=== PATIENT | female | born 1965 | race African-American/Black ===

== ENCOUNTER 2016-05-10 10:54 | Inpatient (IN) | payer MEDICAID ==
[2016-05-10] VITALS (10 sets, daily range): BP systolic 117–165; BP diastolic 63–78; PULSE 75–104; RESP 16–28; TEMP 99.3; O2SAT 80–100
[~2016-05-10] VITALS: Ht 172.7 cm; Wt 112.1 kg
[~2016-05-10 10:54] MED LIST: ALBU.5I NEB; ASPI81CH CHEW; BUME1TAB PO; FERR325T PO; GABA800T PO; LEVEMIR SQ; METO5TAB3 PO; MONT10TA2 PO; MULT1TAB84 PO; NOVOLOGP2 SQ; PRED10 PO; PROT40TA PO; ULTR50TA5 PO; VENTAER INH
[2016-05-10] MEDS ORDERED: RESP: ALBUTEROL 2.5 MG/IPRATROPIUM 0.5 MG NEB (SCH) INH ONE (11:15)
[2016-05-10] MEDS ORDERED: SODIUM CHLORIDE 0.9% FLUSH 5 ML FLUSH IVF PRN ×2 (11:15→14:15)
[2016-05-10] MEDS ORDERED: methylPREDNISolone SOD SUCC 125 MG/2 ML VIAL IVP ONE (11:15)
[2016-05-10 11:34] LABS: AUTOMATED NEUTROPHIL # 10.3 TH/MM3 (1.8-7.7); BASOPHIL # 0.1 TH/MM3 (0-0.2); EOSINOPHIL # 0.1 TH/MM3 (0-0.4); EOSINOPHIL % 0.7 % (0.0-4.0); HEMATOCRIT 34.3 % (35.0-46.0); HEMO FLAGS DIFF FINAL; LYMPH % 6.9 % (9.0-44.0); LYMPHOCYTE # 0.8 TH/MM3 (1.0-4.8); MEAN CORPUSCULAR HGB CONC 32.1 % (32.0-36.0); MONO % 6.1 % (0.0-8.0); NEUT % 85.3 % (16.0-70.0); PLATELET COUNT 269 TH/MM3 (150-450); RED BLOOD COUNT 3.95 MIL/MM3 (4.00-5.30); RED CELL DISTRIBUTION WIDTH 17.6 % (11.6-17.2)
[2016-05-10] MEDS: RESP: ALBUTEROL 2.5 MG/3 ML NEB (SCH) INH (11:34)
--- NOTE | 2016-05-10 11:35 | PD ---
HPI Chief Complaint: Respiratory Distress Time Seen by Provider: 11:01 Travel History International Travel<30 days: No Contact w/Intl Traveler<30days: No Traveled to known affect area: No History of Present Illness HPI This is a 50-year-old female history of COPD, hyperlipidemia, diabetes mellitus , anemia, who presents today with complaints of progressive shortness of breath times several days. She denies any fevers, chills. She states she is normally on 2.5 L of oxygen and has had increased to 4. She states she's been using her nebulizer without relief. She also reports pain in her right buttocks running down her leg. She states she fell 2 weeks ago on her right side and has had pain since. She is able to ambulate however reports the pain. She denies any productive cough. He is unable to tell me how her blood sugars been. PFSH Past Medical History Hx Anticoagulant Therapy: Yes (ASPIRIN ) Anemia: Yes Arthritis: Yes (Legs) Asthma: Yes Autoimmune Disease: No Anxiety: Yes Depression: No Heart Rhythm Problems: No Cancer: No Cardiovascular Problems: Yes High Cholesterol: No Chemotherapy: No Chest Pain: No Congestive Heart Failure: No COPD: Yes Cerebrovascular Accident: No Coronary Artery Disease: No Diabetes: Yes Diminished Hearing: No Endocrine: Yes ( ) Gastrointestinal Disorders: Yes GERD: Yes Glaucoma: No Genitourinary: No Headaches: Yes Hepatitis: No Hiatal Hernia: No Hypertension: Yes Immune Disorder: Yes (Lupus) Implanted Vascular Access Dvce: Yes Kidney Stones: No Musculoskeletal: Yes Neurologic: No Psychiatric: Yes Reproductive: No Respiratory: Yes (COPD) Immunizations Current: No Migraines: Yes ( ) Radiation Therapy: No Renal Failure: No Seizures: No Sickle Cell Disease: No Sleep Apnea: Yes Thyroid Disease: No Ulcer: No ?: Not Menopausal: Yes : 3 Para: 1 Miscarriage: 2 Past Surgical History Abdominal Surgery: No AICD: No Arteriovenous Shunt: No Body Medical Devices: right ankle screws and plates Cardiac Surgery: No Ear Surgery: No Endocrine Surgery: No Eye Surgery: No Genitourinary Surgery: Yes (KIDNEY BIOPSY ) Gynecologic Surgery: Yes (ABLATION) Hysterectomy: Yes Insulin Pump: No Joint Replacement: No Neurologic Surgery: No Oral Surgery: No Pacemaker: No Thoracic Surgery: No Other Surgery: Yes (Ankle Surgery) Social History Alcohol Use: No Tobacco Use: No (quit 10 years, smoked 1 ppd) Substance Use: No Allergies-Medications (Allergen,Severity, Reaction): Coded Allergies: *MDRO Multi-Drug Resistant Organism (Verified Adverse Reaction, Unknown, ) 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 Pt does not require isolation for hx of MDRO prior to 05/11/15* Reported Meds & Prescriptions Reported Meds & Active Scripts Active Prednisone 10 Mg Tab 10 Mg PO DAILY Bumetanide 1 Mg Tab 1 Mg PO DAILY Reported Ultram (Tramadol HCl) 50 Mg Tab 50 Mg PO BID PRN Metolazone 5 Mg Tab 5 Mg PO EVERY OTHER DAY Aspirin 81 Mg Chew 81 Mg CHEW DAILY Ferrous Sulfate 325 Mg Tab 325 Mg PO BID Ventolin Hfa 18 GM Inh (Albuterol Sulfate) 90 Mcg/Act Aer 2 Puff INH Q4H PRN Singulair (Montelukast Sodium) 10 Mg Tab 10 Mg PO HS Albuterol Neb (Albuterol Sulfate) 2.5 Mg/0.5 Ml Neb 2.5 Mg NEB Q4HR NEB PRN Note: The Albuterol Sulfate Inhalation Solution is concentrated and must be diluted. Read complete instructions carefully before using. Protonix (Pantoprazole Sodium) 40 Mg Tab 40 Mg PO DAILY Novolog Inj (Insulin Aspart) 1,000 Unit/10 Ml Vial 20 Units SQ TIDAC Novolog Inj (Insulin Aspart) 1,000 Unit/10 Ml Vial 0 SQ DIRECTED Sliding Scale as directed. Multivitamin Adults (Multiple Vitamins W/ Minerals) 1 Tab 1 Tab PO DAILY Levemir Inj (Insulin Detemir) 1,000 unit/ 10 ML Vial 40 Units SQ BID Do not mix with any other Insulin. Gabapentin 800 Mg Tab 800 Mg PO TID Review of Systems Except as stated in HPI: all other systems reviewed are Neg General / Constitutional: No: Fever, Chills HENT: No: Headaches, Lightheadedness Cardiovascular: No: Chest Pain or Discomfort, Palpitations Respiratory: Positive: Shortness of Breath, Wheezing, No: Cough Gastrointestinal: No: Nausea, Vomiting, Abdominal Pain Musculoskeletal: Positive: Pain (right buttocks running down her right leg) Neurologic: No: Weakness, Dizziness Physical Exam Narrative GENERAL: Well-nourished, well-developed patient in moderate respiratory distress. SKIN: Warm and dry. HEAD: Normocephalic/atraumatic. EYES: No scleral icterus. No drainage NECK: Supple, trachea midline. Unable to appreciate JVD secondary to patient's habitus. CARDIOVASCULAR: Regular rate and rhythm without murmurs, gallops, or rubs. RESPIRATORY: Bilateral axillary wheezes. No Rales appreciated. GASTROINTESTINAL: Abdomen soft, obese, non-tender, nondistended. MUSCULOSKELETAL: No calf tenderness. The patient does have pain in her right sacroiliac area that she reports extends down to her left knee. There is no palpable cords in her posterior popliteal fossa. BACK: Pain in her right sacroiliac area. No posterior is spinous process tenderness. NEUROLOGICAL: Awake and alert. Cranial nerves II through XII intact. Motor grossly within normal limits. Five out of 5 muscle strength in all muscle groups. Normal speech. Data Data Last Documented VS Vital Signs Date Time Temp Pulse Resp B/P Pulse Ox O2 Delivery O2 Flow Rate FiO2 05/10/16 13:31 99 Non-Rebreather 10 05/10/16 13:30 99 28 132/63 05/10/16 11:04 99.3 Orders Complete Blood Count With Diff (05/10/16 11:12) Basic Metabolic Panel (Bmp) (05/10/16 11:12) Arterial Blood Gas (Abg) (05/10/16 11:12) Iv Access Insert/Monitor (05/10/16 11:12) Ecg Monitoring (05/10/16 11:12) Oximetry (05/10/16 11:12) Oxygen Administration (05/10/16 11:12) Chest, Single Ap (05/10/16 11:12) Sodium Chloride 0.9% Flush (Ns Flush) (05/10/16 11:15) Methylprednisolone So Succ Inj (Solumedr (05/10/16 11:15) Albuterol-Ipratropium Neb (Duoneb Neb) (05/10/16 11:15) Albuterol Neb (Albuterol Neb) (05/10/16 11:15) Ceftriaxone Inj (Rocephin Inj) (05/10/16 13:30) Azithromycin Inj (Zithromax Inj) (05/10/16 13:30) Lactic Acid (05/10/16 13:28) Labs Laboratory Tests Test 05/10/16 05/10/16 11:10 12:10 White Blood Count 12.0 TH/MM3 Red Blood Count 3.95 MIL/MM3 Hemoglobin 11.0 GM/DL Hematocrit 34.3 % Mean Corpuscular Volume 87.0 FL Mean Corpuscular Hemoglobin 28.0 PG Mean Corpuscular Hemoglobin 32.1 % Concent Red Cell Distribution Width 17.6 % Platelet Count 269 TH/MM3 Mean Platelet Volume 7.6 FL Neutrophils (%) (Auto) 85.3 % Lymphocytes (%) (Auto) 6.9 % Monocytes (%) (Auto) 6.1 % Eosinophils (%) (Auto) 0.7 % Basophils (%) (Auto) 1.0 % Neutrophils # (Auto) 10.3 TH/MM3 Lymphocytes # (Auto) 0.8 TH/MM3 Monocytes # (Auto) 0.7 TH/MM3 Eosinophils # (Auto) 0.1 TH/MM3 Basophils # (Auto) 0.1 TH/MM3 CBC Comment DIFF FINAL Differential Comment Sodium Level 138 MEQ/L Potassium Level 3.7 MEQ/L Chloride Level 101 MEQ/L Carbon Dioxide Level 25.4 MEQ/L Anion Gap 12 MEQ/L Blood Urea Nitrogen 41 MG/DL Creatinine 2.06 MG/DL Estimat Glomerular Filtration 31 ML/MIN Rate Random Glucose 291 MG/DL Calcium Level 7.7 MG/DL Blood Gas Puncture Site LT RADIAL Blood Gas Patient Temperature 98.6 Blood Gas HCO3 24 mmol/L Blood Gas Base Excess 1.5 mmol/L Blood Gas Oxygen Saturation 76 % Arterial Blood pH 7.51 Arterial Blood Partial 31 mmHg Pressure CO2 Arterial Blood Partial 42 mmHG Pressure O2 Arterial Blood Oxygen Content 11.5 Vol % Arterial Blood 2.7 % Carboxyhemoglobin Arterial Blood Methemoglobin 2.4 % Blood Gas Hemoglobin 10.8 G/DL Oxygen Delivery Device NASAL CANNULA Blood Gas Liter Flow 2.5 L/M [facility] Medical Decision Making Medical Screen Exam Complete: Yes Emergency Medical Condition: Yes Medical Record Reviewed: Yes Interpretation(s) Last Impressions Chest X-Ray 05/10/16 1112 Signed Impressions: Service Date/Time: , May 10, 2016 11:16 - CONCLUSION: Patchy opacity at both lung bases. This may represent atelectasis or early infiltrate. Hugo Frank MD Differential Diagnosis COPD exacerbation versus pneumonia versus CHF. Narrative Course 50-year-old female history of COPD, diabetes mellitus, hyperlipidemia, obesity, who presents today with complaint of worsening shortness of breath. The patient has a history of COPD and states that she has been using her nebulizer however she has had progressively worsening shortness breath. She denies any fevers, chills. She does report that she is having difficulty walking secondary to severe shortness of breath. She also reports pain in her right lower extremity from a fall 1 week ago. The patient has leukocytosis with 85% segs. Chest x-ray shows possible bilateral lower lung atelectasis versus early pneumonia. Given her labs and her increased shortness of breath, I'm suspicious for a early pneumonia. She's been started on Rocephin and Zithromax. A lactic acid level is also ordered. I discussed case with Dr. Clark, senior resident with the resident service. She is agreeable to place the patient on their service. Diagnosis Primary Impression: COPD exacerbation Additional Impressions: Pneumonia Hypoxemia CKD (chronic kidney disease) stage 3, GFR 30-59 ml/min Abdoul Mendoza MD May 10, 2016 11:34
--- NOTE | 2016-05-10 11:42 | RADRPT ---
EXAM DATE/TIME: 05/10/2016 11:16 [facility] COMPARISON: CHEST SINGLE AP, October 12, 2015, 14:46. CHEST SINGLE AP, November 09, 2015, 12:17. CHEST SINGLE AP, Se ptember 2015, 13:17. INDICATIONS : COPD. Shortness of Breath MEDICAL HISTORY : None. SURGICAL HISTORY : None. ENCOUNTER: Initial ACUITY: 3 days PAIN SCORE: 0/10 LOCATION: Bilateral chest FINDINGS: A single AP erect view of the chest was obtained and demonstrates mild patchy bibasilar opacities. Th ere is no evidence of effusion. The heart size at the upper limits of normal. The bony thorax is inta ct. There are multiple overlying electrocardiogram leads. CONCLUSION: Patchy opacity at both lung bases. This may represent atelectasis or early infiltrate . Hugo Frank MD on May 10, 2016 at 11:40 Board Certified Radiologist. This report was verified electronically.
[2016-05-10 11:55] LABS: BICARBONATE 25.4 MEQ/L (21.0-32.0)
[2016-05-10 12:00] LABS: POTASSIUM 3.7 MEQ/L (3.5-5.1)
[2016-05-10 12:20] LABS: BLOOD GAS BASE EXCESS 1.5 mmol/L (-2-2); BLOOD GAS CARBOXYHEMOGLOBIN 2.7 % (0-4); BLOOD GAS HCO3 24 mmol/L (22-26); BLOOD GAS METHEMOGLOBIN 2.4 % (0-2); BLOOD GAS O2 HGB SATURATION 76 % (90-100); BLOOD GAS OXYGEN CONTENT 11.5 Vol % (12.0-20.0); BLOOD GAS PCO2 31 mmHg (38-42); BLOOD GAS PO2 42 mmHG (61-120); BLOOD GAS TOTAL HGB 10.8 G/DL (12.0-16.0); CRITICAL VALUE YES; TEMP CORR TO 98.6
[2016-05-10 12:21] LABS: DRAW SITE LT RADIAL; LITER FLOW 2.5 L/M; NUMBER OF ARTERIAL PUNCTURES 1; OXYGEN DEVICE NASAL CANNULA; STAT YES; ULNAR PULSE PRESENT
[2016-05-10] MEDS ORDERED: AZITHROMYCIN INJ 500 MG in SODIUM CHLOR 0.9% 250 ML INJ 250 ML IV ONE (13:30)
[2016-05-10] MEDS ORDERED: cefTRIAXone INJ 1,000 MG in SODIUM CHLORIDE 0.9% INJ 100 ML IV ONE (13:30)
--- NOTE | 2016-05-10 13:42 | HHI.HP ---
[facility] Service Family Medicine Primary Care Physician Dao Engle MD Admission Diagnosis COPD exacerbation, suspected pneumonia, hypoxemia Diagnoses: International Travel<30 Days: No Contact w/Intl Traveler<30days: No Known Affected Area: No History of Present Illness Pt is a 50 year old female with past medical history significant for COPD, HTN, DM presenting due to COPD exacerbation. Pt reports that she began to have severe shortness of breath this morning and had to increase her home oxygen from 2 to 4 L, when she checked her pulse ox at home it was 82. She last saw her PCP Dr. Engle on 05/07/16 and was given a prescription for prednisone that she was not able to fill. She has felt increasingly short of breath over the past 2 weeks. She experienced a fall about 2 weeks ago which she attributes to lower extremity weakness. She felt light headed and lost her balance. She fell on her right side, denies loss of consciousness, hitting her head, any other injuries. She has had a cough productive of thick, clear sputum. Denies fevers , endorses chills. She notes that she has been experiencing mild bowel incontinence over the past 2 days while coughing. Denies black or bloody stools. She also experiences urinary incontinence which is baseline for her. She experiences chest pain below her ribs with coughing and movement. She does not recall if this is similar to prior COPD exacerbations as it has been so long since her last exacerbation. (Suzy Clark MD R2) Review of Systems Constitutional: COMPLAINS OF: Chills, DENIES: Fever Eyes: DENIES: Double Vision Ears, nose, mouth, throat: DENIES: Throat pain Respiratory: COMPLAINS OF: Cough, Shortness of breath Cardiovascular: COMPLAINS OF: Chest pain (when she walks and is SOB), DENIES: Syncope Gastrointestinal: DENIES: Abdominal pain Musculoskeletal: COMPLAINS OF: Muscle aches, Joint Swelling Integumentary: DENIES: Rash Neurologic: COMPLAINS OF: Localized weakness, DENIES: Headache Psychiatric: COMPLAINS OF: Anxiety (due to "not knowing whats going on with her body") (Suzy Clark MD R2) Past Family Social History Past Medical History COPD ?Sarcoidosis DM HTN Lupus Past Surgical History Right ankle surgery Reported Medications Reported Meds & Active Scripts Active Prednisone 10 Mg Tab 10 Mg PO DAILY Has not filled prescription Bumetanide 1 Mg Tab 1 Mg PO DAILY Reported Ultram (Tramadol HCl) 50 Mg Tab 50 Mg PO BID PRN Aspirin 81 Mg Chew 81 Mg CHEW DAILY Ferrous Sulfate 325 Mg Tab 325 Mg PO BID Ventolin Hfa 18 GM Inh (Albuterol Sulfate) 90 Mcg/Act Aer 2 Puff INH Q4H PRN Singulair (Montelukast Sodium) 10 Mg Tab 10 Mg PO HS Albuterol Neb (Albuterol Sulfate) 2.5 Mg/0.5 Ml Neb 2.5 Mg NEB Q4HR NEB PRN Note: The Albuterol Sulfate Inhalation Solution is concentrated and must be diluted. Read complete instructions carefully before using. Protonix (Pantoprazole Sodium) 40 Mg Tab 40 Mg PO DAILY Novolog Inj (Insulin Aspart) 1,000 Unit/10 Ml Vial 20 Units SQ TIDAC Novolog Inj (Insulin Aspart) 1,000 Unit/10 Ml Vial 0 SQ DIRECTED Sliding Scale as directed. Multivitamin Adults (Multiple Vitamins W/ Minerals) 1 Tab 1 Tab PO DAILY Levemir Inj (Insulin Detemir) 1,000 unit/ 10 ML Vial 40 Units SQ BID Do not mix with any other Insulin. 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 Pt does not require isolation for hx of MDRO prior to 05/11/15* Family History Mother: Lupus Father: DM, HTN, CKD, Blind Social History Pt is not working at this time, Disabled due to chronic medical problems nonsmoker, nondrinker, denies illicit drug use. (Suzy Clark MD R2) Physical Exam Vital Signs Vital Signs Date Time Temp Pulse Resp B/P Pulse Ox O2 Delivery O2 Flow Rate FiO2 05/10/16 13:31 99 Non-Rebreather 10 05/10/16 13:30 99 28 132/63 99 10 05/10/16 12:44 97 Partial Rebreather 12.00 05/10/16 11:16 102 24 142/65 80 2 05/10/16 11:16 80 Nasal Cannula 2 05/10/16 11:04 104 100 10 05/10/16 11:04 99.3 104 20 142/65 100 10 05/10/16 10:55 99.3 98 24 142/65 100 Physical Exam GENERAL: This is a well-nourished, well-developed patient, in no apparent distress. SKIN: No rashes, ecchymoses or lesions. Cool and dry. HEAD: Atraumatic. Normocephalic. No temporal or scalp tenderness. EYES: Pupils equal round and reactive. Extraocular motions intact. No scleral icterus. No injection or drainage. ENT: Nose without bleeding, purulent drainage or septal hematoma. Throat without erythema, tonsillar hypertrophy or exudate. Uvula midline. Airway patent. NECK: Trachea midline. No JVD or lymphadenopathy. Supple, nontender, no meningeal signs. CARDIOVASCULAR: Regular rate and rhythm without murmurs, gallops, or rubs. RESPIRATORY: Increased respiratory rate. Coarse breath sounds in upper lung be. Significant crackles in right lower lung field>left. Increased work of breathing, use of accessory abdominal muscles, no retractions. GASTROINTESTINAL: Abdomen soft, obese, non-tender, nondistended. No hepato- splenomegaly, or palpable masses. No guarding. MUSCULOSKELETAL: Extremities without clubbing, cyanosis, or edema. No joint tenderness, effusion, or edema noted. No calf tenderness. Negative Homans sign bilaterally. Healing bruis on right lateral thigh. NEUROLOGICAL: Awake and alert. Cranial nerves II through XII intact. Motor and sensory grossly within normal limits. 4/5 strength of lower extremities. Normal speech. Laboratory Laboratory Tests Test 05/10/16 05/10/16 11:10 12:10 White Blood Count 12.0 Red Blood Count 3.95 Hemoglobin 11.0 Hematocrit 34.3 Mean Corpuscular Volume 87.0 Mean Corpuscular Hemoglobin 28.0 Mean Corpuscular Hemoglobin 32.1 Concent Red Cell Distribution Width 17.6 Platelet Count 269 Mean Platelet Volume 7.6 Neutrophils (%) (Auto) 85.3 Lymphocytes (%) (Auto) 6.9 Monocytes (%) (Auto) 6.1 Eosinophils (%) (Auto) 0.7 Basophils (%) (Auto) 1.0 Neutrophils # (Auto) 10.3 Lymphocytes # (Auto) 0.8 Monocytes # (Auto) 0.7 Eosinophils # (Auto) 0.1 Basophils # (Auto) 0.1 CBC Comment DIFF FINAL Differential Comment Sodium Level 138 Potassium Level 3.7 Chloride Level 101 Carbon Dioxide Level 25.4 Anion Gap 12 Blood Urea Nitrogen 41 Creatinine 2.06 Estimat Glomerular Filtration 31 Rate Random Glucose 291 Calcium Level 7.7 Blood Gas Puncture Site LT RADIAL Blood Gas Patient Temperature 98.6 Blood Gas HCO3 24 Blood Gas Base Excess 1.5 Blood Gas Oxygen Saturation 76 Arterial Blood pH 7.51 Arterial Blood Partial 31 Pressure CO2 Arterial Blood Partial 42 Pressure O2 Arterial Blood Oxygen Content 11.5 Arterial Blood 2.7 Carboxyhemoglobin Arterial Blood Methemoglobin 2.4 Blood Gas Hemoglobin 10.8 Oxygen Delivery Device NASAL CANNULA Blood Gas Liter Flow 2.5 (Suzy Clark MD R2) Result Diagram: 05/10/16 1110 05/10/16 1110 Imaging Last 24 hours Impressions Chest X-Ray 05/10/16 1112 Signed Impressions: Service Date/Time: , May 10, 2016 11:16 - CONCLUSION: Patchy opacity at both lung bases. This may represent atelectasis or early infiltrate. Hugo Frank MD (Suzy Clark MD R2) Assessment and Plan Assessment and Plan Pt is a 50 year old female with history of COPD, DM, HTN presenting due to COPD exacerbation. Code Status Full Discussed Condition With sdw Dr. Henna Cordova (Suzy Clark MD R2) Attending Attestation THIS CASE WAS DISCUSSED WITH THE RESIDENT PHYSICIANS. I HAVE REVIEWED THE RECORD AND AGREE WITH THE ABOVE NOTE AND PLAN OF CARE WAS DISCUSSED. I HAVE AUTHORIZED THE ORDER FOR ADMISSION TO AN IN-PATIENT STATUS. (Roberto Cordova MD) Problem List: (1) COPD exacerbation Status: Acute Plan: Pt with history of COPD, currently presenting due to COPD exacerbation. WBC count 12, ABG shows respiratory acidosis with ph od 7.51, PCO2 31, PO2 42, Oxygen saturation 76. See CXR below, suggestive of possible early infiltrates. -Soulmedrol 60mg IV Q6hrs -Duonebs Q6hrs -Albuterol Q2 hrs PRN SOB -Azithromycin 500mg PO daily -Rocephin 1Gm IV daily -Montelukast 10mg PO HS -Oxygen supplementation as needed. -Will check VBG in 4 hrs to monitor improvement in respiratory alkalosis -Will consider consulting Pulmonology if respiratory status fails to improve Imaging: CXR 05/10: Patchy opacity at both lung bases, possibly suggestive of atelectasis vs early infiltrates Mediations given in ED: Solumedrol 125mg IV x1 Duonebs x1 Albuterol nebulizer x1 (2) Fall Status: Acute Plan: Pt reports recent fall, and persistent right sided hip pain. She attributes fall to lower extremity weakness and feeling light headed. -Will order Right hip X ray to rule out possible fracture -PT to evaluate and treat (3) DM (diabetes mellitus) Status: Chronic Plan: Pt with history of DM. Home medications include Levemir 40 units BID, and Novalog SSI: 30 units with each meal. -Hemoglobin A1c 9.5 from 05/02/16 -Levemir 20 units BID -Continue to monitor blood glucose, will consider increasing Levemir if blood glucose remains elevated -Insulin low dose sliding scale (4) FEN/PPX Status: Acute Plan: Fluids: None Electrolytes: Within normal limits, continue to monitor Nutrition: Diabetic Diet DVT PPX: Heparin GI PPX: Protonix (Home medication) Chronic conditions: Diabetic neuropathy * Gabapentin 800mg po TID for neuropathy Anemia * Continue home Ferrous sulfate HTN * Bumex, continue restarting home amlodipine held due to hypotension which has now resolved (Suzy Clark MD R2) Physician Certification 2 Midnight Certification Type: Admission for Inpatient Services Order for Inpatient Services The services are ordered in accordance with Medicare regulations or non- Medicare payer requirements, as applicable. In the case of services not specified as inpatient-only, they are appropriately provided as inpatient services in accordance with the 2-midnight benchmark. Estimated LOS (days): 2 days is the estimated time the patient will need to remain in the hospital, assuming treatment plan goals are met and no additional complications. Post-Hospital Plan: Home (Suzy Clark MD R2) Suzy Clark MD R2 May 10, 2016 13:42 Roberto Cordova MD May 10, 2016 21:25
[2016-05-10] MEDS ORDERED: GLUCAGON 1 MG/ML VIAL OTHER PRN (14:30)
[2016-05-10] MEDS ORDERED: DEXTROSE 50% IN WATER 50 ML VIAL(D50) IV PUSH PRN (14:30)
[2016-05-10] MEDS ORDERED: traMADol HCL 50 MG TAB PO PRN (15:00)
[2016-05-10] MEDS ORDERED: ALBUTEROL SULFATE 90 MCG/ACT HFA 8 GM INHALER INH PRN (15:00)
[2016-05-10] MEDS: BUMETANIDE 1 MG TAB PO SCH (15:07)
--- NOTE | 2016-05-10 15:22 | RADRPT ---
EXAM DATE/TIME: 05/10/2016 15:07 [facility] COMPARISON: No previous studies available for comparison. INDICATIONS : Right hip pain. Patient fell 2 weeks ago. MEDICAL HISTORY : Chronic obstructive pulmonary disease. SURGICAL HISTORY : None. ENCOUNTER: Initial ACUITY: 2 weeks PAIN SCORE: 9/10 LOCATION: Right hip. FINDINGS: AP and frog leg lateral views of the right hip were obtained as well as an AP view of the pelvis. The right hip is intact with no acute fracture or malalignment. Mild degenerative changes noted with scl erosis and subchondral cyst formation. There are more severe degenerative changes in left hip with conrad perior joint space loss, sclerosis and subchondral cyst formation as well as hypertrophic spurring. T here is diffuse osteopenia. The pubic rami are intact. The sacrum is unremarkable. CONCLUSION: 1. The right hip is intact with mild degenerative change and no acute fracture or malalignment. 2. Oderate degenerative change in the left hip. Hugo Frank MD on May 10, 2016 at 15:19 Board Certified Radiologist. This report was verified electronically.
[2016-05-10] MEDS ORDERED: AZITHROMYCIN INJ 500 MG in SODIUM CHLOR 0.9% 250 ML INJ 250 ML IV SCH (16:00)
[2016-05-10] MEDS ORDERED: RESP: ALBUTEROL CONC 2.5 MG/0.5 ML NEB NEB PRN (16:00)
[2016-05-10] MEDS: RESP: ALBUTEROL 2.5 MG/IPRATROPIUM 0.5 MG NEB (SCH) INH ×3 (16:53→23:39)
[2016-05-10] MEDS ORDERED: cefTRIAXone INJ 1,000 MG in SODIUM CHLORIDE 0.9% INJ 100 ML IV SCH (17:00)
[2016-05-10 17:07] LABS: BLOOD GAS VENOUS BASE EXCESS 0.6 mmol/L (-2-2); BLOOD GAS VENOUS HCO3 25 mmol/L (22-26); BLOOD GAS VENOUS O2 CONTENT 12.4 Vol % (9.0-17.0); BLOOD GAS VENOUS O2 HGB SAT 72 % (70-76); BLOOD GAS VENOUS PCO2 42 mmHg (44-48); BLOOD GAS VENOUS PO2 45 mmHg (35-40); CRITICAL VALUE NO; DRAW SITE SWAN GANZ LINE; LITER FLOW 12 L/M; STAT YES; TEMP CORR TO 98.6
[2016-05-10] MEDS: INSULIN ASPART SUPPLEMENTAL SCALE SQ SCH ×2 (17:16→21:45)
[2016-05-10] MEDS: methylPREDNISolone SOD SUCC 125 MG/2 ML VIAL IVP SCH ×2 (17:17→23:33)
[2016-05-10] MEDS: GABAPENTIN 400 MG CAP PO SCH (18:27)
[2016-05-10] MEDS: SODIUM CHLORIDE 0.9% FLUSH 5 ML FLUSH IVF SCH ×2 (20:57→21:00)
[2016-05-10] MEDS ORDERED: INSULIN DETEMIR 100 UNITS/ML VIAL SQ SCH (21:00)
--- NOTE | 2016-05-10 21:24 | HHI.HP ---
[facility] Service Family Medicine Primary Care Physician Dao Engle MD Admission Diagnosis COPD exacerbation, suspected pneumonia, hypoxemia Diagnoses: (1) COPD exacerbation (2) Fall (3) DM (diabetes mellitus) (4) FEN/PPX International Travel<30 Days: No Contact w/Intl Traveler<30days: No Known Affected Area: No History of Present Illness 50 yo F presenting to the ED with COPD exacerbation and pneumonia. She reports progressive shortness of breath over the last 2 weeks. She then had sudden worsening of her shortness of breath this morning and required an increase in her home oxygen from 2-4 L after she checked her pulse ox and it was 82%. She also has had 2 weeks of coughing that is intermittently productive of thick, clear sputum. She also has had significant fatigue and weakness in her legs, with a fall 2 weeks ago with resulting pain in her right hip causing her pain with weight bearing. Denies fevers, endorses chills. She notes that she has been experiencing mild bowel incontinence over the past 2 days while coughing. Denies black or bloody stools. She also experiences urinary incontinence which is baseline for her. She experiences chest pain below her ribs with coughing and movement. She does not recall if this is similar to prior COPD exacerbations as it has been so long since her last exacerbation. Past Family Social History Past Medical History COPD ?Sarcoidosis DM HTN Lupus Past Surgical History Right ankle surgery Allergies: Coded Allergies: *MDRO Multi-Drug Resistant Organism (Verified Adverse Reaction, Unknown, ) 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 Pt does not require isolation for hx of MDRO prior to 05/11/15* Family History Mother: Lupus Father: DM, HTN, CKD, Blind Social History Pt is not working at this time, Disabled due to chronic medical problems nonsmoker, nondrinker, denies illicit drug use. Physical Exam Vital Signs Vital Signs Date Time Temp Pulse Resp B/P Pulse Ox O2 Delivery O2 Flow Rate FiO2 05/10/16 19:44 100 Non-Rebreather 12 05/10/16 19:44 92 22 133/73 99 Non-Rebreather 12 05/10/16 18:23 75 16 165/78 100 05/10/16 15:12 83 100 Non-Rebreather 10 05/10/16 15:12 75 20 132/63 100 10 05/10/16 13:31 99 Non-Rebreather 10 05/10/16 13:30 99 28 132/63 99 10 05/10/16 12:44 97 Partial Rebreather 12.00 05/10/16 11:16 102 24 142/65 80 2 05/10/16 11:16 80 Nasal Cannula 2 05/10/16 11:04 104 100 10 05/10/16 11:04 99.3 104 20 142/65 100 10 05/10/16 10:55 99.3 98 24 142/65 100 Physical Exam GENERAL: Overweight AA female, wearing non-rebreather mask HEAD: Atraumatic. Normocephalic. EYES: Pupils equal round and reactive. CARDIOVASCULAR: Regular rate and rhythm without murmurs, gallops, or rubs. RESPIRATORY: Increased respiratory rate. Coarse breath sounds in lower lung be bilaterally. Significant crackles in right lower lung field. Increased work of breathing, use of accessory abdominal muscles, no retractions. GASTROINTESTINAL: Abdomen soft, obese, non-tender, nondistended. MUSCULOSKELETAL: Extremities without clubbing, cyanosis, or edema. Healing bruise on right lateral thigh. NEUROLOGICAL: Awake and alert. Laboratory Laboratory Tests Test 05/10/16 05/10/16 05/10/16 05/10/16 11:10 12:10 14:12 16:55 White Blood Count 12.0 Red Blood Count 3.95 Hemoglobin 11.0 Hematocrit 34.3 Mean Corpuscular Volume 87.0 Mean Corpuscular Hemoglobin 28.0 Mean Corpuscular Hemoglobin 32.1 Concent Red Cell Distribution Width 17.6 Platelet Count 269 Mean Platelet Volume 7.6 Neutrophils (%) (Auto) 85.3 Lymphocytes (%) (Auto) 6.9 Monocytes (%) (Auto) 6.1 Eosinophils (%) (Auto) 0.7 Basophils (%) (Auto) 1.0 Neutrophils # (Auto) 10.3 Lymphocytes # (Auto) 0.8 Monocytes # (Auto) 0.7 Eosinophils # (Auto) 0.1 Basophils # (Auto) 0.1 CBC Comment DIFF FINAL Differential Comment Sodium Level 138 Potassium Level 3.7 Chloride Level 101 Carbon Dioxide Level 25.4 Anion Gap 12 Blood Urea Nitrogen 41 Creatinine 2.06 Estimat Glomerular Filtration 31 Rate Random Glucose 291 Calcium Level 7.7 Blood Gas Puncture Site LT RADIAL SWAN [place] LINE Blood Gas Patient Temperature 98.6 98.6 Blood Gas HCO3 24 Blood Gas Base Excess 1.5 Blood Gas Oxygen Saturation 76 Arterial Blood pH 7.51 Arterial Blood Partial 31 Pressure CO2 Arterial Blood Partial 42 Pressure O2 Arterial Blood Oxygen Content 11.5 Arterial Blood 2.7 Carboxyhemoglobin Arterial Blood Methemoglobin 2.4 Blood Gas Hemoglobin 10.8 Oxygen Delivery Device NASAL CANNULA Partial Rebreather Blood Gas Liter Flow 2.5 12 Lactic Acid Level 1.8 Venous Blood pH 7.40 Venous Blood Partial Pressure 42 CO2 Venous Blood Partial Pressure 45 O2 Venous Blood HCO3 25 Venous Blood Oxygen Saturation 72 Venous Blood Oxygen Content 12.4 Venous Blood Base Excess 0.6 Result Diagram: 05/10/16 1110 05/10/16 1110 Imaging Last 24 hours Impressions Chest X-Ray 05/10/16 1112 Signed Impressions: Service Date/Time: May 11:16 - CONCLUSION: Patchy opacity at both lung bases. This may represent atelectasis or early infiltrate. Hugo Frank MD Assessment and Plan Assessment and Plan Pt is a 50 year old female with history of COPD, DM, HTN presenting due to COPD exacerbation. Problem List: (1) COPD exacerbation Status: Acute Plan: Pt with history of COPD, currently presenting due to COPD exacerbation. WBC count 12, ABG shows respiratory acidosis with ph od 7.51, PCO2 31, PO2 42, Oxygen saturation 76. See CXR below, suggestive of possible early infiltrates. -Soulmedrol 60mg IV Q6hrs -Duonebs Q6hrs -Albuterol Q2 hrs PRN SOB -Azithromycin 500mg PO daily -Rocephin 1Gm IV daily -Montelukast 10mg PO HS -Oxygen supplementation as needed. -Will check VBG in 4 hrs to monitor improvement in respiratory alkalosis -Will consider consulting Pulmonology if respiratory status fails to improve Imaging: CXR 05/10: Patchy opacity at both lung bases, possibly suggestive of atelectasis vs early infiltrates Mediations given in ED: Solumedrol 125mg IV x1 Duonebs x1 Albuterol nebulizer x1 (2) Fall Status: Acute Plan: Pt reports recent fall, and persistent right sided hip pain. She attributes fall to lower extremity weakness and feeling light headed. -Will order Right hip X ray to rule out possible fracture -PT to evaluate and treat (3) DM (diabetes mellitus) Status: Chronic Plan: Pt with history of DM. Home medications include Levemir 40 units BID, and Novalog SSI: 30 units with each meal. -Hemoglobin A1c 9.5 from 05/02/16 -Levemir 20 units BID -Continue to monitor blood glucose, will consider increasing Levemir if blood glucose remains elevated -Insulin low dose sliding scale (4) FEN/PPX Status: Acute Plan: Fluids: None Electrolytes: Within normal limits, continue to monitor Nutrition: Diabetic Diet DVT PPX: Heparin GI PPX: Protonix (Home medication) Chronic conditions: Diabetic neuropathy * Gabapentin 800mg po TID for neuropathy Anemia * Continue home Ferrous sulfate HTN * Bumex, continue restarting home amlodipine held due to hypotension which has now resolved Physician Certification 2 Midnight Certification Type: Admission for Inpatient Services Order for Inpatient Services The services are ordered in accordance with Medicare regulations or non- Medicare payer requirements, as applicable. In the case of services not specified as inpatient-only, they are appropriately provided as inpatient services in accordance with the 2-midnight benchmark. Estimated LOS (days): 2 2 days is the estimated time the patient will need to remain in the hospital, assuming treatment plan goals are met and no additional complications. Post-Hospital Plan: Not yet determined Roberto Cordova MD May 10, 2016 21:24
[2016-05-10] MEDS: FERROUS SULFATE 325 MG (65 MG ELEMENTAL IRON) TAB PO SCH (21:41)
[2016-05-10] MEDS: MONTELUKAST SODIUM 10 MG TAB PO SCH (21:41)
[2016-05-10] MEDS: HEPARIN SODIUM - SQ 10,000 UNITS/ML VIAL SQ SCH (21:42)
[2016-05-10] MEDS: ACETAMINOPHEN/CODEINE 300 MG/30 MG TAB PO PRN (23:33)
[2016-05-11] VITALS (25 sets, daily range): BP systolic 108–138; BP diastolic 67–83; PULSE 84–96; RESP 16–20; TEMP 98–98.5; O2SAT 92–98
--- NOTE | 2016-05-11 00:38 | HHI.PR ---
Addendum to Inpatient Note Addendum Reason: Additional Documentation Additional Information S: Pts nurse was called regarding update on respiratory status. Pt was noted to still require 15L via nonrebreather, and has not tolerated being weaned. She was not reported to be in any respiratory distress. Residents went to evaluate pt. She reports feeling okay, and is stable when she lays down. She becomes increasingly short of breath with walking. She has never needed to wear a nonrebreather mask when she was previously admitted. She has never required intubation. O: General: Pt speaking in full sentences, currently receiving breathing treatment , in NAD Respiratory: Diffuse coarse breath sounds in upper lung be, increased respiratory rate, use of accessory muscles, significant crackles in right lower lung field, overall stable from exam at time of admission. Cardio: RRR Neuro: normal speech A/P: COPD Pt reports feeling that her breathing is stable Will continue with current management including steroids and breathing treatments Will consult pulmonology, appreciate recommendations. Pt reports having an appointment to see her shoe trimmer scheduled for next month. She has not improved since time of admission. Pt known to Dr. Mcdaniel. Consider critical care consult if pt fails to improve and is not able to be weaned off of non rebreather. markw Dr. Rosales [facility] Medicine B team Suzy Clark MD R2 May 11, 2016 00:38
[2016-05-11] MEDS: RESP: ALBUTEROL 2.5 MG/IPRATROPIUM 0.5 MG NEB (SCH) INH ×5 (05:03→20:23)
[2016-05-11] MEDS: methylPREDNISolone SOD SUCC 125 MG/2 ML VIAL IVP SCH (05:18)
[2016-05-11] MEDS: HEPARIN SODIUM - SQ 10,000 UNITS/ML VIAL SQ SCH ×3 (05:19→20:44)
[2016-05-11] MEDS: INSULIN ASPART SUPPLEMENTAL SCALE SQ SCH ×4 (06:09→20:44)
[2016-05-11 06:57] LABS: AUTOMATED NEUTROPHIL # 6.1 TH/MM3 (1.8-7.7); BASOPHIL % 0.2 % (0.0-2.0); HEMATOCRIT 31.7 % (35.0-46.0); HEMO FLAGS DIFF FINAL; LYMPHOCYTE # 0.5 TH/MM3 (1.0-4.8); MEAN CORPUSCULAR HEMOGLOBIN 28.7 PG (27.0-34.0); MEAN CORPUSCULAR HGB CONC 32.6 % (32.0-36.0); MONO % 2.8 % (0.0-8.0); PLATELET COUNT 226 TH/MM3 (150-450); WHITE BLOOD COUNT 6.8 TH/MM3 (4.0-11.0)
[2016-05-11 07:16] LABS: POTASSIUM 3.8 MEQ/L (3.5-5.1)
[2016-05-11] MEDS ORDERED: ACETAMINOPHEN 325 MG TAB PO PRN (08:30)
[2016-05-11] MEDS ORDERED: INSULIN DETEMIR 100 UNITS/ML VIAL SQ SCH (09:00)
[2016-05-11] MEDS: SODIUM CHLORIDE 0.9% FLUSH 5 ML FLUSH IVF SCH ×4 (09:00→20:43)
--- NOTE | 2016-05-11 10:30 | HHI.FPPN ---
Subjective Remarks Overnight, patient had acute worsening of respiratory status, stabilized by patient being placed on a non-rebreather at 15L O2. Over the lens dotter, patient's respiratory status slowly improved. This morning, patient is now able to converse in complete sentences without becoming significantly winded. She continues to endorse shortness of breath with movement and states she is <50 % from her baseline. She denies chest pain, abdominal pain, or calf pain. Patient does endorse a headache and persistent dry cough. She is currently on a venti mask. (Deep Sauceda MD R3) Objective Vitals Vital Signs Date Time Temp Pulse Resp B/P Pulse Ox O2 Delivery O2 Flow Rate FiO2 05/11/16 08:05 91 05/11/16 07:49 98 Venturi Mask 50 05/11/16 07:30 85 05/11/16 04:23 84 05/11/16 04:00 98.2 85 108/67 95 05/11/16 01:07 98.2 93 122/69 92 05/11/16 01:04 Venturi Mask 05/11/16 00:10 93 Venturi Mask 6.00 50 05/10/16 23:26 93 24 117/63 100 Non-Rebreather 15 05/10/16 20:07 99 Partial Rebreather 12.00 05/10/16 19:44 100 Non-Rebreather 12 05/10/16 19:44 92 22 133/73 99 Non-Rebreather 12 05/10/16 18:23 75 16 165/78 100 05/10/16 15:12 83 100 Non-Rebreather 10 05/10/16 15:12 75 20 132/63 100 10 05/10/16 13:31 99 Non-Rebreather 10 05/10/16 13:30 99 28 132/63 99 10 05/10/16 12:44 97 Partial Rebreather 12.00 05/10/16 11:16 102 24 142/65 80 2 05/10/16 11:16 80 Nasal Cannula 2 05/10/16 11:04 104 100 10 05/10/16 11:04 99.3 104 20 142/65 100 10 05/10/16 10:55 99.3 98 24 142/65 100 I/O 05/10/16 05/10/16 05/10/16 05/11/16 05/11/16 2/10/17 07:00 15:00 23:00 07:00 15:00 23:00 Intake Total 480 ml Output Total 400 ml Balance 80 ml Intake Oral 480 ml Output Urine Total 400 ml # Voids 1 (Deep Sauceda MD R3) Result Diagram: 05/11/1651405/11/16514 Objective Remarks GENERAL: well-nourished, well-developed AA female wearing a venti-mask SKIN: No rashes, ecchymoses or lesions. Cool and dry. HEAD: Atraumatic. Normocephalic. EYES: Extraocular motions intact. No scleral icterus. No injection or drainage. CARDIOVASCULAR: Regular rate and rhythm without murmurs, gallops, or rubs. RESPIRATORY: Coarse breath sounds with crackles over bilateral bases. No significant increased WOB or retractions. GASTROINTESTINAL: Abdomen soft, obese, nondistended. MUSCULOSKELETAL: Extremities without clubbing, cyanosis, or edema. No joint tenderness, effusion, or edema noted. No calf tenderness. Healing bruise on right lateral thigh. NEUROLOGICAL: Awake and alert. Cranial nerves II through XII intact. Motor and sensory grossly within normal limits. 4/5 strength of lower extremities. Normal speech. (Deep Sauceda MD R3) A/P Assessment and Plan Pt is a 50 year old female with history of COPD, DM, HTN presenting due to COPD exacerbation. Discharge Planning Pending clinical improvement, likely in 3-5 days. (Deep Sauceda MD R3) Attending Attestation Patient examined and case discussed with resident physicians I have read the above note and agree with the assessment/plan as discussed with me I was involved in all medical decision making for this patient Roberto Cordova M.D. (Roberto Cordova MD) Problem List: (1) COPD exacerbation Status: Acute Plan: Pt with history of COPD, presenting with acute shortness of breath. WBC count 12, ABG shows respiratory acidosis with ph od 7.51, PCO2 31, PO2 42, Oxygen saturation 76. CXR suggestive of possible early infiltrates. Therefore admitted for likely COPD exacerbation due to respiratory infection. - Begin Prednisone 50mg PO daily, s/p Soulmedrol 60mg IV Q6hrs - Duonebs Q6hrs - Albuterol Q2 hrs PRN SOB - Azithromycin 500mg PO daily - Rocephin 1Gm IV daily - Montelukast 10mg PO HS - Oxygen supplementation as needed. - Consider repeat VBG to monitor resolution of - Pt is known to Dr. Mcdaniel, Pulmonology consult is pending Imaging: CXR 05/10: Patchy opacity at both lung bases, possibly suggestive of atelectasis vs early infiltrates (2) Fall Status: Acute Plan: Pt reports recent fall, and persistent right sided hip pain. She attributes fall to lower extremity weakness and feeling light headed. -Right hip XR shows no evidence of fracture -PT pending (3) DM (diabetes mellitus) Status: Chronic Plan: Home medications include Levemir 40 units BID and Novalog 30 units with each meal. Hemoglobin A1c 9.5 from 05/02/16. Bedside glucose has remained significantly elevated since admission. Of note, she is on high-dose steroids as above. - Restart home Levemir 40 units BID - Restart home short-acting 30 units TIDAC - Begin medium dose SS. - Continue [employer] gabapentin as needed for neuropathic pain (4) Essential hypertension Status: Chronic Plan: Currently holding Amlodipine, consider restarting if BP improves (5) Anemia Status: Acute Plan: Continue home Ferrous sulfate (6) FEN/PPX Status: Acute Plan: Fluids: None Electrolytes: Within normal limits, continue to monitor Nutrition: Diabetic Diet DVT PPX: Heparin GI PPX: Protonix (Home medication) (Deep Sauceda MD R3) Deep Sauceda MD R3 May 11, 2016 10:30 Roberto Cordova MD May 11, 2016 15:30
[2016-05-11] MEDS: GABAPENTIN 400 MG CAP PO SCH ×3 (10:56→17:01)
[2016-05-11] MEDS: AZITHROMYCIN 250 MG TAB PO SCH (10:56)
[2016-05-11] MEDS: ASPIRIN 81 MG CHEW TAB CHEW SCH (10:56)
[2016-05-11] MEDS: BUMETANIDE 1 MG TAB PO SCH (10:56)
[2016-05-11] MEDS: PANTOPRAZOLE SOD 40 MG DELAYED RELEASE TAB PO SCH (10:57)
[2016-05-11] MEDS: FERROUS SULFATE 325 MG (65 MG ELEMENTAL IRON) TAB PO SCH ×2 (10:57→20:41)
[2016-05-11] MEDS ORDERED: INSULIN ASPART 1,000 UNITS/10 ML VIAL SQ SCH ×2 (12:00→17:00)
[2016-05-11] MEDS: predniSONE 50 MG TAB PO SCH (12:32)
[2016-05-11] MEDS: BUDESONIDE-FORMOTEROL 160/4.5 MCG INHALER INH SCH ×2 (12:32→20:42)
[2016-05-11] MEDS: cefTRIAXone INJ 1,000 MG in SODIUM CHLORIDE 0.9% INJ 100 ML IV SCH (14:23)
[2016-05-11] MEDS: ACETAMINOPHEN/CODEINE 300 MG/30 MG TAB PO PRN ×2 (14:24→20:53)
[2016-05-11] MEDS: INSULIN ASPART 1,000 UNITS/10 ML VIAL SQ SCH (17:01)
--- NOTE | 2016-05-11 18:25 | MB ---
cc: PINA BAKER MD DATE OF CONSULTATION: 05/11/2016. REASON FOR CONSULTATION: Shortness of breath and pneumonia. REQUESTING PHYSICIAN: Dr. Engle. HISTORY OF PRESENT ILLNESS: Ms. See is a 50-year-old obese female with history of COPD. She is oxygen-dependent. History of obstructive sleep apnea. Lupus under remission. Hypertension. Diabetes mellitus. The patient was not doing well for some few weeks but over the last two or three days she was feeling more short of breath. Normally she uses oxygen two to three liters nasal cannula and she checked her oxygen saturation and it was running at 82. She has a cough with a small amount of sputum production. No nausea or vomiting. Because of worsening of her symptoms, she came to the emergency room. She had a workup done. Her white blood cell count is 6.8, hemoglobin 10.3, hematocrit 31.7, MCV 88, platelet count 226. Sodium 130, potassium 3.8, chloride 96, carbon dioxide 27, BUN 34, creatinine 1.74. Blood gas on 2.5 liters nasal cannula was pH 7.5, pC02 of 31, p02 of 42. Currently she is on 5 liters nasal cannula. Saturation is 95%. Her chest x-ray shows patchy opacity in both lung bases which may represent infiltrate or atelectasis. PAST MEDICAL HISTORY: Her past medical history is significant for: 1. History of COPD. She is oxygen-dependent. 2. Hypertension. 3. Diabetes mellitus. 4. Lupus. 5. Obstructive sleep apnea. 6. History of right ankle surgery. MEDICATIONS: She is currently takin. Zaroxolyn 5 milligrams every other day. 2. Detemir insulin 40 units twice a day. 3. Rocephin 1 gram a day. 4. Protonix 40 milligrams a day. 5. Zithromax 500 milligrams a day. 6. Prednisone 50 milligrams a day. 7. Symbicort 160 / 4.5 two puffs twice a day. 8. Heparin 5000 IU q. 8-hours. 9. Ferrous sulfate 325 milligrams twice a day. 10. Singulair 10 milligrams a day. 11. Tylenol #3 one tablet q. 6 hours as needed. 12. Neurontin 800 milligrams three times a day. 13. Albuterol and Atrovent nebulizer treatment. 14. Bumex 1 milligram a day. ALLERGIES: NO KNOWN DRUG ALLERGIES. SOCIAL HISTORY: She is a and lives alone. She worked before in the as a [employer]. No history of smoking or alcohol abuse. FAMILY HISTORY: She has one daughter. REVIEW OF SYSTEMS: She walks only short distances. She uses oxygen. No history of stroke. No DVT or pulmonary embolism. No malignancy. PHYSICAL EXAMINATION: GENERAL: Obese female, mild short of breath. VITAL SIGNS: Blood pressure 138/83, heart rate 86, respirations 18, temperature 98.5. HEAD, EYES, EARS, NOSE, THROAT: She has a round face. Pupils are equal and reactive. Oral mucosa and nasal mucosa are normal. NECK: The neck is supple. JVP not raised. CHEST: She has a few rales at the bases. CARDIOVASCULAR: S1 and S2 normal. ABDOMEN: Abdomen benign. EXTREMITIES: No edema. IMPRESSION: 1. Basal infiltrates, possible early pneumonia or atelectasis. 2. COPD with mild exacerbation. 3. Obstructive sleep apnea. 4. Diabetes mellitus. 5. Hypertension. 6. Chronic kidney disease. 7. History of lupus. PLAN: 1. Will give her aerosol treatment with albuterol and Atrovent. 2. Symbicort twice a day. 3. Continue antibiotic Rocephin and Zithromax. 4. Prednisone 50 milligrams. 5. Monitor her electrolytes. 6. Supplement her oxygen. Further treatment will depend on the course in the hospital. Thank you for this consult. Pina Baker MD ADA/JCC /5:56 PM /6:12 PM WILDA
[2016-05-11] MEDS: INSULIN DETEMIR 100 UNITS/ML VIAL SQ SCH (20:43)
[2016-05-11] MEDS: MONTELUKAST SODIUM 10 MG TAB PO SCH (20:45)
[2016-05-12] VITALS (24 sets, daily range): BP systolic 96–142; BP diastolic 57–79; PULSE 70–102; RESP 18–22; TEMP 97–98.5; O2SAT 93–100
[2016-05-12] MEDS: RESP: ALBUTEROL 2.5 MG/IPRATROPIUM 0.5 MG NEB (SCH) INH ×6 (01:18→23:40)
[2016-05-12 04:54] LABS: AUTOMATED NEUTROPHIL # 9.3 TH/MM3 (1.8-7.7); BASOPHIL % 0.1 % (0.0-2.0); HEMATOCRIT 31.5 % (35.0-46.0); HEMO FLAGS DIFF FINAL; LYMPH % 7.3 % (9.0-44.0); LYMPHOCYTE # 0.8 TH/MM3 (1.0-4.8); MEAN CELL VOLUME 86.4 FL (80.0-100.0); MEAN CORPUSCULAR HEMOGLOBIN 28.6 PG (27.0-34.0); MEAN CORPUSCULAR HGB CONC 33.1 % (32.0-36.0); MONO % 6.9 % (0.0-8.0); NEUT % 85.7 % (16.0-70.0); PLATELET COUNT 256 TH/MM3 (150-450); RED BLOOD COUNT 3.65 MIL/MM3 (4.00-5.30); RED CELL DISTRIBUTION WIDTH 17.2 % (11.6-17.2); WHITE BLOOD COUNT 10.8 TH/MM3 (4.0-11.0)
[2016-05-12 05:12] LABS: BICARBONATE 27.4 MEQ/L (21.0-32.0); CALCIUM-PROTEIN CORRECTED 8.5 MG/DL (8.5-10.1); MAGNESIUM 1.7 MG/DL (1.5-2.5); POTASSIUM 3.3 MEQ/L (3.5-5.1)
[2016-05-12] MEDS: ACETAMINOPHEN/CODEINE 300 MG/30 MG TAB PO PRN ×4 (05:50→20:46)
[2016-05-12] MEDS: INSULIN ASPART SUPPLEMENTAL SCALE SQ SCH ×4 (05:51→20:46)
[2016-05-12] MEDS: HEPARIN SODIUM - SQ 10,000 UNITS/ML VIAL SQ SCH ×3 (05:51→20:43)
[2016-05-12] MEDS: INSULIN ASPART 1,000 UNITS/10 ML VIAL SQ SCH ×3 (08:00→17:00)
[2016-05-12] MEDS: INSULIN DETEMIR 100 UNITS/ML VIAL SQ SCH ×3 (09:00→20:45)
[2016-05-12] MEDS: SODIUM CHLORIDE 0.9% FLUSH 5 ML FLUSH IVF SCH ×4 (09:00→20:44)
[2016-05-12] MEDS: BUMETANIDE 1 MG TAB PO SCH (09:08)
[2016-05-12] MEDS: GABAPENTIN 400 MG CAP PO SCH ×3 (09:08→18:00)
[2016-05-12] MEDS: AZITHROMYCIN 250 MG TAB PO SCH (09:08)
[2016-05-12] MEDS: METOLAZONE 5 MG TAB PO SCH (09:09)
[2016-05-12] MEDS: ASPIRIN 81 MG CHEW TAB CHEW SCH (09:09)
[2016-05-12] MEDS: PANTOPRAZOLE SOD 40 MG DELAYED RELEASE TAB PO SCH (09:09)
[2016-05-12] MEDS: BUDESONIDE-FORMOTEROL 160/4.5 MCG INHALER INH SCH ×2 (09:10→20:44)
--- NOTE | 2016-05-12 09:11 | HHI.FPPN ---
Subjective Remarks Nursed called resident team about elevated blood sugars overnight. Per nurse report, she tried to walk to the bathroom this morning and had an oxygen desat to 60s-70s%. They had to put her back on Venturi mask at 50% to get her sat's back to the 90s%. Overnight, Pt with pulse ranging from 77-96, one low bp of 96/ 57 with Pox 93-98% on 5-6L NC. Pt reports that yesterday she was going to the bathroom with just the nasal canula, was working with PT without much HENDRIX. However, this morning, she went to the bathroom, started coughing and then had O2 desat with dyspnea because of coughing fit. She reports continued cough productive of yellow sputum, continued chest soreness exacerbated by coughing, continued minimal bowel incontinence with coughing. Denies fever, chills, nausea , vomiting, chest pain. Legs tight but getting better. Pt reports she was feeling better until episode of coughing. Objective Vitals Vital Signs Date Time Temp Pulse Resp B/P Pulse Ox O2 Delivery O2 Flow Rate FiO2 05/12/16 08:04 100 Nasal Cannula 4.00 05/12/16 06:00 82 05/12/16 05:00 85 05/12/16 04:00 98.1 79 18 126/69 98 05/12/16 04:00 Nasal Cannula 5.00 05/12/16 04:00 79 05/12/16 03:00 82 05/12/16 02:00 80 05/12/16 01:00 82 05/12/16 00:00 Nasal Cannula 5.00 05/12/16 00:00 77 05/12/16 00:00 98.4 77 18 96/57 96 05/11/16 23:00 84 05/11/16 22:00 91 05/11/16 21:00 92 05/11/16 20:26 93 Nasal Cannula 5.00 05/11/16 20:00 96 05/11/16 20:00 98.0 96 18 127/76 95 05/11/16 20:00 Nasal Cannula 5.00 05/11/16 18:00 88 05/11/16 17:00 85 05/11/16 16:45 96 Nasal Cannula 6.00 05/11/16 16:00 89 05/11/16 15:55 98.5 86 18 138/83 98 05/11/16 15:00 85 05/11/16 14:07 91 05/11/16 13:09 89 05/11/16 12:00 91 20 132/77 93 05/11/16 12:00 95 05/11/16 11:00 88 05/11/16 10:00 92 I/O 05/11/16 05/11/16 05/11/16 05/12/16 05/12/16 05/12/16 07:00 15:00 23:00 07:00 15:00 23:00 Intake Total 480 ml 484 ml Output Total 400 ml 1100 ml Balance 80 ml -616 ml Intake Oral 480 ml 480 ml IV Total 4 ml Output Urine Total 400 ml 1100 ml # Voids 1 # Bowel Movements 0 Result Diagram: 05/12/16 0345 05/12/16 0345 Imaging Last Impressions Chest X-Ray 05/10/16 1112 Signed Impressions: Service Date/Time: May 11:16 - CONCLUSION: Patchy opacity at both lung bases. This may represent atelectasis or early infiltrate. Hugo Frank MD Hip and Pelvis X-Ray 05/10/16 0000 Signed Impressions: Service Date/Time: May 15:07 - CONCLUSION: 1. The right hip is intact with mild degenerative change and no acute fracture or malalignment. 2. Oderate degenerative change in the left hip. Hugo Frank MD Objective Remarks GENERAL: well-nourished, well-developed AA female wearing with Venturi mask in place at 6L/min at 50% FiO2, speaking in complete sentences. SKIN: No rashes, ecchymoses or lesions. Cool and dry. HEAD: Atraumatic. Normocephalic. EYES: Extraocular motions intact. No scleral icterus. No injection or drainage. CARDIOVASCULAR: Regular rate and rhythm without murmurs, gallops, or rubs. RESPIRATORY: Slightly tachypneic with coarse breath sounds with crackles over bilateral bases. No significant increased WOB or retractions. GASTROINTESTINAL: Abdomen soft, obese, nondistended. MUSCULOSKELETAL: Extremities without clubbing, cyanosis, or edema. No joint tenderness, effusion, or edema noted. No calf tenderness. NEUROLOGICAL: Awake and alert. Cranial nerves II through XII grossly intact. Motor and sensory grossly within normal limits. Normal speech. A/P Assessment and Plan Pt is a 50 year old female with history of COPD presenting due to COPD exacerbation. Discharge Planning Pending clinical improvement, likely in 2-5 days. Problem List: (1) COPD exacerbation Status: Acute Plan: Admitted for likely COPD exacerbation due to respiratory infection. - Prednisone 50mg PO daily, s/p Soulmedrol 60mg IV Q6hrs - Duonebs Q6hrs - Albuterol Q2 hrs PRN SOB - Azithromycin 500mg PO daily - Rocephin 1Gm IV daily - Montelukast 10mg PO HS - Oxygen supplementation as needed. - Consider repeat VBG to monitor resolution of - Pulmonology consulted; recommendations appreciated - Symbicort q12hrs - Tessalon 200mg po tid PRN for cough - BNP Imaging: CXR 05/10: Patchy opacity at both lung bases, possibly suggestive of atelectasis vs early infiltrates History: Pt with history of COPD, presenting with acute shortness of breath, WBC count 12 , ABG that showed respiratory alkalosis with pH of 7.51, PCO2 31, PO2 42, Oxygen saturation 76. CXR suggestive of possible early infiltrates. (2) Hypokalemia Status: Acute Plan: Pt with K+ of 3.3 today. - 40 mEq of KCl po today (3) Fall Status: Acute Plan: Pt reports recent fall, and persistent right sided hip pain. She attributes fall to lower extremity weakness and feeling lightheaded. -Right hip XR shows no evidence of fracture -PT recommends PT at rehab versus home with home health PT (4) DM (diabetes mellitus) Status: Chronic Plan: Home medications include Levemir 40 units BID and NovoLog 30 units with each meal. Hemoglobin A1c 9.5 from 05/02/16. Bedside glucose has remained significantly elevated since admission. Of note, she is on high-dose steroids as above and likely has infection. Pt required 55 units of SSI. - Increase Levemir to 48 units BID - Increase short-acting 36 units TIDAC - Continue medium dose SS. - Continue gabapentin tid for neuropathic pain (5) Essential hypertension Status: Chronic Plan: Currently holding Amlodipine, consider restarting if BP increases (6) Anemia Status: Acute Plan: Continue home Ferrous sulfate (7) FEN/PPX Status: Acute Plan: Fluids: None Electrolytes: see hypoK+, continue to monitor Nutrition: Diabetic Diet DVT PPX: Heparin GI PPX: Protonix (Home medication) Hugo Aguillon MD R1 May 12, 2016 09:11
[2016-05-12] MEDS: predniSONE 50 MG TAB PO SCH (09:33)
[2016-05-12] MEDS: FERROUS SULFATE 325 MG (65 MG ELEMENTAL IRON) TAB PO SCH ×2 (09:33→20:43)
[2016-05-12] MEDS ORDERED: POTASSIUM CHLORIDE 20 MEQ CONTROLLED RELEASE TAB PO ONE (10:00)
[2016-05-12] MEDS ORDERED: PNEUMOCOCCAL POLYVALENT INJ 25 MCG/0.5 ML SYR IM ONE (10:00)
[2016-05-12] MEDS: cefTRIAXone INJ 1,000 MG in SODIUM CHLORIDE 0.9% INJ 100 ML IV SCH (14:21)
[2016-05-12] MEDS: BENZONATATE 100 MG CAP PO PRN (14:39)
[2016-05-12] MEDS: MONTELUKAST SODIUM 10 MG TAB PO SCH (20:43)
[2016-05-13] VITALS (30 sets, daily range): BP systolic 89–130; BP diastolic 49–75; PULSE 71–92; RESP 18–20; TEMP 98.1–98.7; O2SAT 96–100
[2016-05-13] MEDS: RESP: ALBUTEROL 2.5 MG/IPRATROPIUM 0.5 MG NEB (SCH) INH ×6 (04:47→21:43)
[2016-05-13] MEDS: HEPARIN SODIUM - SQ 10,000 UNITS/ML VIAL SQ SCH ×3 (05:25→20:21)
[2016-05-13] MEDS: INSULIN ASPART SUPPLEMENTAL SCALE SQ SCH ×4 (05:26→20:25)
[2016-05-13 07:01] LABS: AUTOMATED NEUTROPHIL # 7.7 TH/MM3 (1.8-7.7); BASOPHIL % 0.2 % (0.0-2.0); EOSINOPHIL % 0.1 % (0.0-4.0); HEMATOCRIT 32.1 % (35.0-46.0); HEMO FLAGS DIFF FINAL; LYMPH % 13.6 % (9.0-44.0); LYMPHOCYTE # 1.3 TH/MM3 (1.0-4.8); MEAN CELL VOLUME 85.4 FL (80.0-100.0); MEAN CORPUSCULAR HEMOGLOBIN 28.9 PG (27.0-34.0); MEAN CORPUSCULAR HGB CONC 33.8 % (32.0-36.0); MONO % 7.5 % (0.0-8.0); NEUT % 78.6 % (16.0-70.0); PLATELET COUNT 243 TH/MM3 (150-450); RED BLOOD COUNT 3.76 MIL/MM3 (4.00-5.30); WHITE BLOOD COUNT 9.8 TH/MM3 (4.0-11.0)
[2016-05-13 07:28] LABS: BICARBONATE 28.1 MEQ/L (21.0-32.0); POTASSIUM 3.5 MEQ/L (3.5-5.1)
[2016-05-13] MEDS: INSULIN ASPART 1,000 UNITS/10 ML VIAL SQ SCH ×3 (08:00→17:00)
--- NOTE | 2016-05-13 08:22 | HHI.FPPN ---
Subjective Remarks Pt off Venturi mask since yesterday. Pt on Bipap to sleep. Afebrile and vital signs stable overnight. She denies HENDRIX but O2 goes low with walking. She reports keepeing her O2 on with walking, and she reports that at home she is on O2 24h a day, and usually has O2 sat's in the 90s% at rest. She notes that coughing seems to decrease her O2 sat. She reports that walking from bed to bathromm, her pulse ox drops to as low as 60s-70s%, but she reports feeling fine at these times. At home at baseline, standing causes O2 sat to drop to high 80s%. This morning, Pox mid-high 90s with lying down on NC. Standing with O2 via NC causes her Pox to go to low 80s%, pulse in the high 90s. After a few minutes of standing and talking, her pulse was around 90 and Pox in the mid 80s% , but she reported feeling winded. She reports decreased cough, and that the cough med seems to be helping. She denied any fever, chills, dyspnea at rest, or significant HENDRIX overnight. She still endorses CP with cough. She denied any dizziness or lightheadedness standing. She reports that her legs feel better, but they are still a little tender. (Hugo Aguillon MD R1) Objective Vitals Vital Signs Date Time Temp Pulse Resp B/P Pulse Ox O2 Delivery O2 Flow Rate FiO2 05/13/16 06:00 79 05/13/16 05:00 80 05/13/16 04:47 100 40 05/13/16 04:00 98.1 77 18 103/67 98 05/13/16 04:00 77 05/13/16 04:00 Bi-Pap 05/13/16 03:00 80 05/13/16 02:00 83 05/13/16 01:00 81 05/13/16 00:00 Bi-Pap 05/13/16 00:00 98.4 85 20 121/75 99 05/13/16 00:00 85 05/12/16 23:41 100 40 05/12/16 23:00 82 05/12/16 22:00 79 05/12/16 21:00 84 05/12/16 20:00 98.1 93 22 142/79 93 05/12/16 20:00 Nasal Cannula 5.00 05/12/16 20:00 95 Nasal Cannula 4.00 05/12/16 20:00 93 05/12/16 18:00 70 05/12/16 17:00 70 05/12/16 16:48 96 Nasal Cannula 4.00 05/12/16 16:00 91 05/12/16 15:00 97.0 84 18 107/57 96 05/12/16 15:00 88 05/12/16 14:12 18 05/12/16 11:59 90 05/12/16 11:00 97.7 92 18 112/63 97 05/12/16 11:00 94 05/12/16 10:00 90 05/12/16 09:00 102 05/12/16 09:00 Nasal Cannula 5.00 05/12/16 09:00 98.5 89 18 112/64 100 05/12/16 08:04 100 Nasal Cannula 4.00 I/O 05/12/16 05/12/16 05/12/16 05/13/16 05/13/16 05/13/16 07:00 15:00 23:00 07:00 15:00 23:00 Intake Total 484 ml 600 ml 482 ml Output Total 1100 ml 480 ml 900 ml Balance -616 ml 120 ml -418 ml Intake Oral 480 ml 600 ml 480 ml IV Total 4 ml 2 ml Output Urine Total 1100 ml 480 ml 900 ml # Bowel Movements 0 1 0 (Hugo Aguillon MD R1) Result Diagram: 05/13/16 0600 05/13/16 0600 Imaging Last Impressions Chest X-Ray 05/10/16 1112 Signed Impressions: Service Date/Time: May 11:16 - CONCLUSION: Patchy opacity at both lung bases. This may represent atelectasis or early infiltrate. Hugo Frank MD Hip and Pelvis X-Ray 05/10/16 0000 Signed Impressions: Service Date/Time: May 15:07 - CONCLUSION: 1. The right hip is intact with mild degenerative change and no acute fracture or malalignment. 2. Oderate degenerative change in the left hip. Hugo Frank MD Objective Remarks GENERAL: well-nourished, well-developed, overweight AA female sleeping wearing BiPAP and with waking puts on NC at 4-5L/min, speaking in complete sentences. SKIN: No rashes, ecchymoses or lesions. Cool and dry. HEAD: Atraumatic. Normocephalic. EYES: Extraocular motions intact. No scleral icterus. No injection or drainage. CARDIOVASCULAR: Regular rate and rhythm without murmurs, gallops, or rubs. RESPIRATORY: Slightly tachypneic with coarse breath sounds with crackles over bilateral bases. No significant increased WOB or retractions. Pox high 90s with lying down on NC. Standing with O2 via NC causes her Pox to go to low 80s, P high 90s; P low 90s, Pox mid 80s with prolonged standing and talking but pt sounded and felt winded. GASTROINTESTINAL: Abdomen soft, obese, nondistended. MUSCULOSKELETAL: Extremities without clubbing, cyanosis, or edema. No joint tenderness, effusion, or edema noted. No calf tenderness. NEUROLOGICAL: Awake and alert. Cranial nerves II through XII grossly intact. Motor and sensory grossly within normal limits. Normal speech. (Hugo Aguillon MD R1) A/P Assessment and Plan Pt is a 50 year old female with history of COPD presenting due to COPD exacerbation and likely pneumonia. Discharge Planning Pending clinical improvement, likely in 1-5 days. stephanie Cordova (Hugo Aguillon MD R1) Attending Attestation Pt. examined and case discussed with resident physician I have read the above note and agree with the assessment/plan as discussed with me I was involved in all medical decision making for this patient Roberto Cordova MD (Roberto Cordova MD) Problem List: (1) COPD exacerbation Status: Acute Plan: Admitted for likely COPD exacerbation due to respiratory infection. - Prednisone 50mg PO daily, s/p Soulmedrol 60mg IV Q6hrs - Duonebs Q6hrs - Albuterol Q2 hrs PRN SOB - Azithromycin 500mg PO daily - Rocephin 1Gm IV daily - Montelukast 10mg PO HS - Oxygen supplementation as needed. - Pulmonology consulted; recommendations appreciated - Symbicort q12hrs - Tessalon 200mg po tid PRN for cough Imaging: CXR 05/10: Patchy opacity at both lung bases, possibly suggestive of atelectasis vs early infiltrates History: Pt with history of COPD, presenting with acute shortness of breath, WBC count 12 , ABG that showed respiratory alkalosis with pH of 7.51, PCO2 31, PO2 42, Oxygen saturation 76. CXR suggestive of possible early infiltrates. Repeat VBG showed pH of 7.40, PCO2 42, PO2 45. - BNP 188 (2) Hypokalemia Status: Resolved Plan: Pt with K+ of 3.5 today. - 40 mEq of KCl po today - BMP tomorrow (3) Fall Status: Acute Plan: Pt reports recent fall, and persistent right sided hip pain. She attributes fall to lower extremity weakness and feeling lightheaded. -Right hip XR shows no evidence of fracture -PT recommends PT at rehab versus home with home health PT (4) DM (diabetes mellitus) Status: Chronic Plan: Home medications include Levemir 40 units BID and NovoLog 30 units with each meal. Hemoglobin A1c 9.5 from 05/02/16. Bedside glucose has remained significantly elevated since admission. Of note, she is on high-dose steroids as above and likely has infection. - Levemir to 48 units BID - NovoLog 36 units TIDAC - Continue medium dose SS. - Continue gabapentin tid for neuropathic pain (5) Essential hypertension Status: Chronic Plan: Currently holding Amlodipine, consider restarting if BP increases (6) Anemia Status: Acute Plan: Continue home Ferrous sulfate (7) FEN/PPX Status: Acute Plan: Fluids: None Electrolytes: see hypoK+, continue to monitor Nutrition: Diabetic Diet DVT PPX: Heparin GI PPX: Protonix (Home medication) (Hugo Aguillon MD R1) Hugo Aguillon MD R1 May 13, 2016 08:22 Roberto Cordova MD May 13, 2016 17:04
[2016-05-13] MEDS: AZITHROMYCIN 250 MG TAB PO SCH (08:32)
[2016-05-13] MEDS: GABAPENTIN 400 MG CAP PO SCH ×3 (08:32→21:07)
[2016-05-13] MEDS: ASPIRIN 81 MG CHEW TAB CHEW SCH (08:32)
[2016-05-13] MEDS: BUMETANIDE 1 MG TAB PO SCH (08:32)
[2016-05-13] MEDS: FERROUS SULFATE 325 MG (65 MG ELEMENTAL IRON) TAB PO SCH ×2 (08:32→20:13)
[2016-05-13] MEDS: PANTOPRAZOLE SOD 40 MG DELAYED RELEASE TAB PO SCH (08:32)
[2016-05-13] MEDS: SODIUM CHLORIDE 0.9% FLUSH 5 ML FLUSH IVF SCH ×4 (08:35→20:16)
[2016-05-13] MEDS: BUDESONIDE-FORMOTEROL 160/4.5 MCG INHALER INH SCH ×2 (08:35→20:19)
[2016-05-13] MEDS: INSULIN DETEMIR 100 UNITS/ML VIAL SQ SCH ×2 (08:36→20:14)
[2016-05-13] MEDS: predniSONE 50 MG TAB PO SCH (09:00)
[2016-05-13] MEDS ORDERED: POTASSIUM CHLORIDE 10 MEQ CONTROLLED RELEASE TAB PO ONE (10:30)
[2016-05-13] MEDS ORDERED: SODIUM CHLORID 0.9% 500 ML INJ 500 ML IV ONE (11:45)
[2016-05-13] MEDS: ACETAMINOPHEN/CODEINE 300 MG/30 MG TAB PO PRN ×2 (11:46→20:13)
[2016-05-13] MEDS: cefTRIAXone INJ 1,000 MG in SODIUM CHLORIDE 0.9% INJ 100 ML IV SCH (14:00)
[2016-05-13] MEDS: GABAPENTIN 300 MG CAP PO SCH (20:13)
[2016-05-13] MEDS: MONTELUKAST SODIUM 10 MG TAB PO SCH (20:14)
[2016-05-14] VITALS (19 sets, daily range): BP systolic 102–120; BP diastolic 57–78; PULSE 73–94; RESP 18–20; TEMP 97.9–98.6; O2SAT 93–100
[2016-05-14] MEDS: HEPARIN SODIUM - SQ 10,000 UNITS/ML VIAL SQ SCH ×3 (05:16→22:20)
[2016-05-14] MEDS: INSULIN ASPART SUPPLEMENTAL SCALE SQ SCH ×4 (05:23→22:23)
[2016-05-14] MEDS: RESP: ALBUTEROL 2.5 MG/IPRATROPIUM 0.5 MG NEB (SCH) INH ×4 (08:00→19:39)
[2016-05-14] MEDS: GABAPENTIN 300 MG CAP PO SCH ×2 (08:21→22:21)
[2016-05-14] MEDS: GABAPENTIN 400 MG CAP PO SCH ×2 (08:21→22:20)
[2016-05-14] MEDS: BUMETANIDE 1 MG TAB PO SCH (08:22)
[2016-05-14] MEDS: AZITHROMYCIN 250 MG TAB PO SCH (08:22)
[2016-05-14] MEDS: PANTOPRAZOLE SOD 40 MG DELAYED RELEASE TAB PO SCH (08:22)
[2016-05-14] MEDS: METOLAZONE 5 MG TAB PO SCH (08:22)
[2016-05-14] MEDS: ASPIRIN 81 MG CHEW TAB CHEW SCH (08:22)
[2016-05-14] MEDS: FERROUS SULFATE 325 MG (65 MG ELEMENTAL IRON) TAB PO SCH ×2 (08:22→22:20)
[2016-05-14] MEDS: predniSONE 10 MG TAB PO SCH (08:22)
[2016-05-14] MEDS: SODIUM CHLORIDE 0.9% FLUSH 5 ML FLUSH IVF SCH ×2 (08:23→08:24)
[2016-05-14] MEDS: INSULIN ASPART 1,000 UNITS/10 ML VIAL SQ SCH ×3 (08:23→17:00)
[2016-05-14] MEDS: INSULIN DETEMIR 100 UNITS/ML VIAL SQ SCH ×2 (08:24→22:23)
[2016-05-14] MEDS: BUDESONIDE-FORMOTEROL 160/4.5 MCG INHALER INH SCH ×2 (08:24→21:00)
--- NOTE | 2016-05-14 08:42 | HHI.FPPN ---
Subjective Remarks Pt seen and examined this morning. Pt was on Bi-Pap overnight. Pt reports that her breathing is slightly improved this morning. She still has desaturations when she gets out of bed to use the bedside commode. At home when she walks to use the bathroom her oxygen saturation will normally drop to the mid 80s, but will return to the 90s shortly thereafter. She denies chest pain, abdominal pain , constipation, diarrhea. She has been tolerating her diet, denies nausea or vomiting. She has discomfort of her lower extremities which is stable, she has been working with PT. Pts nurse has no acute concerns. Pt to have CXR this morning. (Suzy Clark MD R2) Objective Vitals Vital Signs Date Time Temp Pulse Resp B/P Pulse Ox O2 Delivery O2 Flow Rate FiO2 05/14/16 08:09 97 Nasal Cannula 3.00 05/14/16 08:07 98.0 84 18 111/74 95 05/14/16 07:21 Bi-Pap 4.00 35 05/14/16 07:21 78 05/14/16 06:00 76 05/14/16 05:00 74 05/14/16 04:28 100 35 05/14/16 04:00 98.6 73 20 114/57 99 05/14/16 04:00 73 05/14/16 04:00 Bi-Pap 05/14/16 03:00 77 05/14/16 02:00 82 05/14/16 01:00 80 05/14/16 00:21 100 35 05/14/16 00:00 82 05/13/16 23:57 98.7 82 20 111/68 99 05/13/16 23:57 Nasal Cannula 4.00 05/13/16 23:00 89 05/13/16 22:00 82 05/13/16 21:00 81 05/13/16 20:00 98.4 78 18 130/72 97 05/13/16 20:00 Nasal Cannula 4.00 05/13/16 20:00 78 05/13/16 18:00 90 05/13/16 16:58 92 05/13/16 16:00 80 05/13/16 15:30 98.7 83 20 106/67 96 05/13/16 15:00 82 05/13/16 14:00 92 05/13/16 13:18 72 99/65 05/13/16 13:08 20 05/13/16 13:00 92 05/13/16 12:00 82 05/13/16 11:30 98.4 88 20 89/49 98 05/13/16 11:00 74 05/13/16 10:00 92 05/13/16 09:02 96 Nasal Cannula 4.00 05/13/16 09:00 80 I/O 05/13/16 05/13/16 05/13/16 05/14/16 05/14/16 05/14/16 07:00 15:00 23:00 07:00 15:00 23:00 Intake Total 482 ml 1220 ml 482 ml 0 ml Output Total 900 ml 1500 ml 750 ml Balance -418 ml -280 ml -268 ml 0 ml Intake Oral 480 ml 720 ml 480 ml 0 ml IV Total 2 ml 500 ml 2 ml Output Urine Total 900 ml 1500 ml 750 ml # Voids 1 # Bowel Movements 0 0 (Suzy Clark MD R2) Result Diagram: 05/13/16 0605/13/16 06 Objective Remarks GENERAL: well-nourished, well-developed, overweight AA female sleeping wearing BiPAP and with waking puts on NC at 4-5L/min, speaking in complete sentences. SKIN: No rashes, ecchymoses or lesions. Cool and dry. HEENT: Atraumatic. Normocephalic. Extraocular motions intact. No scleral icterus. No injection or drainage. CARDIOVASCULAR: Regular rate and rhythm without murmurs, gallops, or rubs. RESPIRATORY: Slightly tachypneic with coarse breath sounds with crackles over bilateral bases. No significant increased WOB or retractions. O2 saturation 100 % at rest. GASTROINTESTINAL: Abdomen soft, obese, nondistended. MUSCULOSKELETAL: Extremities without clubbing, cyanosis, or edema. No joint tenderness, effusion, or edema noted. No calf tenderness. NEUROLOGICAL: Awake and alert. Cranial nerves II through XII grossly intact. Motor and sensory grossly within normal limits. Normal speech. (Suzy Clark MD R2) A/P Assessment and Plan Pt is a 50 year old female with history of COPD presenting due to COPD exacerbation and likely pneumonia. Discharge Planning Pending respiratory improvement, likely in 2-[address] Aguillon wdw Dr. Pitts (Suzy Clark MD R2) Attending Attestation Patient seen and examined. Case reviewed and discussed Agree with plan of care as discussed with me and documented in the resident note. Resting in bed, breathing stable. Bipap at night Normal BM yesterday. Stable urine output (Chely Pitts MD) Problem List: (1) COPD exacerbation Status: Acute Plan: Admitted for COPD exacerbation, likely due to respiratory infection. - Duonebs Q6hrs - Albuterol Q2 hrs PRN SOB - Pro air inhaler 2 puffs Q4hrs prn SOB - Concentrated albuterol nebulizer 2.5 mg Q4hrs rpn SOB - Azithromycin 500mg PO daily - Rocephin 1Gm IV daily - Montelukast 10mg PO HS - Oxygen supplementation as needed. - Tessalon 200mg po tid PRN for cough - Pulmonology consulted; recommendations appreciated - Prednisone 30mg PO daily - Symbicort 2 puffs q12hrs - F/U chest x ray ordered Imaging: CXR 05/10: Patchy opacity at both lung bases, possibly suggestive of atelectasis vs early infiltrates History: Pt with history of COPD, presenting with acute shortness of breath, WBC count 12 , ABG that showed respiratory alkalosis with pH of 7.51, PCO2 31, PO2 42, Oxygen saturation 76. CXR suggestive of possible early infiltrates. Repeat VBG showed pH of 7.40, PCO2 42, PO2 45. - BNP 188 (2) DM (diabetes mellitus) Status: Chronic Plan: Home medications include Levemir 40 units BID and NovoLog 30 units with each meal. Hemoglobin A1c 9.5 from 05/02/16. Bedside glucose has remained significantly elevated since admission. Of note, she is on high-dose steroids as above and likely has infection. - She has required 27 units of SSI over the last 24hrs, blood glucose levels ranging from 174-360 - Levemir to 58 units BID - NovoLog 36 units TIDAC - Continue medium dose SS. - Continue gabapentin tid for neuropathic pain (3) Hypokalemia Status: Resolved Plan: Pt with K+ of 3.5 on 05/13. -Repleted with 40 mEq of KCl po -Continue to monitor (4) CKD (chronic kidney disease) stage 3, GFR 30-59 ml/min Status: Acute Plan: Baseline creatinine around 1.5. Creatinine on 05/13 1.54, decreased from 2.06 on admission, labs pending for this morning. - Monitor Is and Os - Monitor daily BMP - Consider consult nephrology is renal function (5) Fall Status: Acute Plan: Pt reports recent fall, and persistent right sided hip pain. She attributes fall to lower extremity weakness and feeling lightheaded. -Right hip XR shows no evidence of fracture -PT recommends PT at rehab versus home with home health PT (6) Essential hypertension Status: Chronic Plan: Currently holding Amlodipine, consider restarting if BP increases (7) Anemia Status: Chronic Plan: Continue home Ferrous sulfate (8) FEN/PPX Status: Acute Plan: Fluids: None Electrolytes: see hypokalemia, continue to monitor Nutrition: Diabetic Diet DVT PPX: Heparin GI PPX: Protonix (Home medication) (Suzy Clark MD R2) Suzy Clark MD R2 May 14, 2016 08:42 Chely Pitts MD May 14, 2016 11:17
[2016-05-14] MEDS: ACETAMINOPHEN/CODEINE 300 MG/30 MG TAB PO PRN ×2 (08:44→22:23)
--- NOTE | 2016-05-14 09:44 | RADRPT ---
EXAM DATE/TIME: 05/14/2016 09:19 [facility] COMPARISON: CT PULMONARY ANGIOGRAM, January 31, 2015, 13:52. LUNG VENTILATION & PERFUSION SCAN, September 27, 2015, 17:20. CHEST SINGLE AP, May 10, 2016, 11:16. CHEST PA & LAT, May 11, 2015, 16:56. INDICATIONS : Shortness of breath. MEDICAL HISTORY : Hypertension. Chronic obstructive pulmonary disease. Diabetes mellitus type II. SURGICAL HISTORY : None. ENCOUNTER: Subsequent ACUITY: 1 week PAIN SCORE: 0/10 LOCATION: Bilateral chest FINDINGS: PA and lateral views the chest were obtained and demonstrate streaky interstitial opacity in both lorena gs with no focal consolidation or effusion. The heart size is at the upper limits of normal. The bony thorax remains intact. There are multiple overlying electrocardiogram leads. CONCLUSION: Streaky opacity remains in both lungs. This is most consistent with chronic scarring and/or fibrosis. Hugo Frank MD on May 14, 2016 at 9:29 Board Certified Radiologist. This report was verified electronically.
[2016-05-14 10:56] LABS: AUTOMATED NEUTROPHIL # 6.9 TH/MM3 (1.8-7.7); BASOPHIL % 0.2 % (0.0-2.0); EOSINOPHIL # 0.1 TH/MM3 (0-0.4); EOSINOPHIL % 0.8 % (0.0-4.0); HEMATOCRIT 34.5 % (35.0-46.0); HEMO FLAGS DIFF FINAL; LYMPHOCYTE # 1.1 TH/MM3 (1.0-4.8); MEAN CELL VOLUME 85.8 FL (80.0-100.0); MEAN CORPUSCULAR HEMOGLOBIN 28.5 PG (27.0-34.0); MEAN CORPUSCULAR HGB CONC 33.3 % (32.0-36.0); MONO % 6.7 % (0.0-8.0); NEUT % 79.3 % (16.0-70.0); PLATELET COUNT 260 TH/MM3 (150-450); RED BLOOD COUNT 4.02 MIL/MM3 (4.00-5.30); WHITE BLOOD COUNT 8.7 TH/MM3 (4.0-11.0)
[2016-05-14 11:25] LABS: BICARBONATE 28.1 MEQ/L (21.0-32.0); POTASSIUM 3.7 MEQ/L (3.5-5.1)
[2016-05-14] MEDS: cefTRIAXone INJ 1,000 MG in SODIUM CHLORIDE 0.9% INJ 100 ML IV SCH (15:10)
--- NOTE | 2016-05-14 20:29 | HHI.PR ---
Subjective Remarks 50 YOAA female with COPD,YOJANA,Lung infilt Breathing better Uses CPAP Weaned to NC Objective Vital Signs Vital Signs Date Time Temp Pulse Resp B/P Pulse Ox O2 Delivery O2 Flow Rate FiO2 05/14/16 19:39 93 Nasal Cannula 2.00 05/14/16 15:36 05/14/16 15:33 88 05/14/16 14:34 98.0 78 18 120/78 98 05/14/16 08:09 97 Nasal Cannula 3.00 05/14/16 08:07 98.0 84 18 111/74 95 05/14/16 07:21 Bi-Pap 4.00 35 05/14/16 07:21 78 05/14/16 06:00 76 05/14/16 05:00 74 05/14/16 04:28 100 35 05/14/16 04:00 98.6 73 20 114/57 99 05/14/16 04:00 73 05/14/16 04:00 Bi-Pap 05/14/16 03:00 77 05/14/16 02:00 82 05/14/16 01:00 80 05/14/16 00:21 100 35 05/14/16 00:00 82 05/13/16 23:57 98.7 82 20 111/68 99 05/13/16 23:57 Nasal Cannula 4.00 05/13/16 23:00 89 05/13/16 22:00 82 05/13/16 21:00 81 I/O 05/13/16 05/13/16 05/13/16 05/14/16 05/14/16 05/14/16 07:00 15:00 23:00 07:00 15:00 23:00 Intake Total 482 ml 1220 ml 482 ml 0 ml 1520 ml Output Total 900 ml 1500 ml 750 ml 2000 ml Balance -418 ml -280 ml -268 ml 0 ml -480 ml Intake Oral 480 ml 720 ml 480 ml 0 ml 1520 ml IV Total 2 ml 500 ml 2 ml Output Urine Total 900 ml 1500 ml 750 ml 2000 ml # Voids 1 # Bowel Movements 0 0 Result Diagram: 05/14/16 1006 05/14/16 1006 Objective Remarks GENERAL: WBWN AA female, mild sob SKIN: Warm and dry. HEAD: Normocephalic. EYES: No scleral icterus. No injection or drainage. NECK: Supple, trachea midline. No JVD or lymphadenopathy. CARDIOVASCULAR: Regular rate and rhythm without murmurs, gallops, or rubs. RESPIRATORY: Breath sounds equal bilaterally. No accessory muscle use. GASTROINTESTINAL: Abdomen soft, non-tender, nondistended. MUSCULOSKELETAL: No cyanosis, or edema. BACK: Nontender without obvious deformity. No CVA tenderness. A/P Assessment and Plan COPD exac improving Lung infilt Atelactesis YOJANA DM LUPUS PALAN: CPAP at night supplement 02 to keep sat >90% Aerosol nebs Symbicort bid Cont Abx Monitor BS PO Prednisone Dez Millan MD May 14, 2016 20:29
[2016-05-14] MEDS: MONTELUKAST SODIUM 10 MG TAB PO SCH (21:00)
[2016-05-15] VITALS (13 sets, daily range): BP systolic 104–127; BP diastolic 59–83; PULSE 80–98; RESP 18–20; TEMP 96.9–98.4; O2SAT 92–100
[2016-05-15] MEDS: RESP: ALBUTEROL 2.5 MG/3 ML NEB (PRN) INH (00:28)
[2016-05-15 05:53] LABS: AUTOMATED NEUTROPHIL # 6.1 TH/MM3 (1.8-7.7); BASOPHIL % 0.2 % (0.0-2.0); EOSINOPHIL # 0.1 TH/MM3 (0-0.4); EOSINOPHIL % 1.1 % (0.0-4.0); HEMATOCRIT 33.3 % (35.0-46.0); LYMPHOCYTE # 1.8 TH/MM3 (1.0-4.8); MEAN CELL VOLUME 85.4 FL (80.0-100.0); MEAN CORPUSCULAR HEMOGLOBIN 28.3 PG (27.0-34.0); MEAN CORPUSCULAR HGB CONC 33.2 % (32.0-36.0); MONO % 6.8 % (0.0-8.0); NEUT % 70.9 % (16.0-70.0); PLATELET COUNT 264 TH/MM3 (150-450); RED BLOOD COUNT 3.89 MIL/MM3 (4.00-5.30); RED CELL DISTRIBUTION WIDTH 16.7 % (11.6-17.2); WHITE BLOOD COUNT 8.7 TH/MM3 (4.0-11.0)
[2016-05-15 06:04] LABS: HEMO FLAGS AUTO DIFF
[2016-05-15 06:11] LABS: CALCIUM-PROTEIN CORRECTED 8.7 MG/DL (8.5-10.1)
[2016-05-15] MEDS: HEPARIN SODIUM - SQ 10,000 UNITS/ML VIAL SQ SCH ×3 (06:16→23:45)
[2016-05-15] MEDS: INSULIN ASPART SUPPLEMENTAL SCALE SQ SCH ×4 (06:16→21:04)
[2016-05-15 07:06] LABS: CORRECTED NUCLEATED RBC 1 /100 WBC (0-0); METAMYELOCYTES 1 % (0-1); PLATELET ESTIMATE SMEAR NORMAL (NORMAL); PLATELET MORPHOLOGY NORMAL (NORMAL); POLYS (SEG NEUTROPHILS) 79 % (16-70); SCAN/DIFF FINAL DIFF MANUAL; WBC DIFF SAMPLE 100
[2016-05-15] MEDS: RESP: ALBUTEROL 2.5 MG/IPRATROPIUM 0.5 MG NEB (SCH) INH ×4 (07:57→19:36)
[2016-05-15] MEDS: AZITHROMYCIN 250 MG TAB PO SCH (08:18)
[2016-05-15] MEDS: ASPIRIN 81 MG CHEW TAB CHEW SCH (08:18)
[2016-05-15] MEDS: BUMETANIDE 1 MG TAB PO SCH (08:20)
[2016-05-15] MEDS: INSULIN ASPART 1,000 UNITS/10 ML VIAL SQ SCH ×3 (08:20→16:30)
[2016-05-15] MEDS: FERROUS SULFATE 325 MG (65 MG ELEMENTAL IRON) TAB PO SCH ×2 (08:20→20:52)
[2016-05-15] MEDS: predniSONE 10 MG TAB PO SCH (08:21)
[2016-05-15] MEDS: ACETAMINOPHEN/CODEINE 300 MG/30 MG TAB PO PRN ×2 (08:21→20:59)
[2016-05-15] MEDS: PANTOPRAZOLE SOD 40 MG DELAYED RELEASE TAB PO SCH (08:21)
[2016-05-15] MEDS: GABAPENTIN 400 MG CAP PO SCH ×2 (08:21→20:51)
[2016-05-15] MEDS: INSULIN DETEMIR 100 UNITS/ML VIAL SQ SCH ×2 (08:22→21:04)
[2016-05-15] MEDS: GABAPENTIN 300 MG CAP PO SCH ×2 (08:22→20:52)
[2016-05-15] MEDS: SODIUM CHLORIDE 0.9% FLUSH 5 ML FLUSH IVF SCH ×5 (08:23→20:52)
[2016-05-15] MEDS: BUDESONIDE-FORMOTEROL 160/4.5 MCG INHALER INH SCH ×2 (08:23→20:52)
--- NOTE | 2016-05-15 14:22 | HHI.FPPN ---
Subjective Remarks No acute events overnight. Overnight, Pulse ranged from 80-98, blood pressure ranged from 102-123/59-83, had a low pulse ox of 94% on 2 L nasal cannula. Patient continues to deny any fever, chills, chest pain, shortness of breath. She reports that her cough continues to improve. Patient reports that usually, when she is home and healthy, her oxygen saturation is in the mid 90s on home O2 of 2-3 L/m via nasal cannula. This morning, she was satting 92% on 2 L/m nasal cannula. When she got up to walk to the bathroom, she had a witnessed oxygen desaturation to 77-80% on 2 L/m nasal cannula with associated dyspnea on exertion. Patient also reports that her lower extremity edema is worse than the previous day. (Hugo Aguillon MD R1) Objective Vitals Vital Signs Date Time Temp Pulse Resp B/P Pulse Ox O2 Delivery O2 Flow Rate FiO2 05/15/16 11:00 98.3 98 18 119/83 100 05/15/16 11:00 90 05/15/16 08:28 94 Nasal Cannula 2.00 05/15/16 08:28 87 20 104/59 94 05/15/16 07:57 94 Nasal Cannula 2.00 05/15/16 07:00 81 05/15/16 05:52 98.4 80 18 123/74 98 05/15/16 04:20 100 35 05/15/16 03:00 86 05/15/16 00:45 99 35 05/15/16 00:20 100 Bi-Pap 35 05/14/16 23:30 19 05/14/16 23:01 98.4 79 18 102/62 98 05/14/16 23:00 90 05/14/16 19:39 93 Nasal Cannula 2.00 05/14/16 19:25 97.9 76 18 115/74 98 05/14/16 19:25 96 Nasal Cannula 2.00 05/14/16 19:00 94 05/14/16 15:36 05/14/16 15:33 88 05/14/16 14:34 98.0 78 18 120/78 98 I/O 05/14/16 05/14/16 05/14/16 05/15/16 05/15/16 05/15/16 07:00 15:00 23:00 07:00 15:00 23:00 Intake Total 482 ml 0 ml 1520 ml 240 ml Output Total 750 ml 2000 ml 900 ml Balance -268 ml 0 ml -480 ml -660 ml Intake Oral 480 ml 0 ml 1520 ml 240 ml IV Total 2 ml Output Urine Total 750 ml 2000 ml 900 ml # Bowel Movements 0 (Hugo Aguillon MD R1) Result Diagram: 05/15/16 0528 05/15/16 0528 Imaging Last Impressions Chest X-Ray 05/14/16 0900 Signed Impressions: Service Date/Time: Saturday, May 14, 2016 09:19 - CONCLUSION: Streaky opacity remains in both lungs. This is most consistent with chronic scarring and/or fibrosis. Hugo Frank MD Hip and Pelvis X-Ray 05/10/16 0000 Signed Impressions: Service Date/Time: May 15:07 - CONCLUSION: 1. The right hip is intact with mild degenerative change and no acute fracture or malalignment. 2. Oderate degenerative change in the left hip. Hugo Frank MD Objective Remarks GENERAL: well-nourished, well-developed, overweight AA female sitting up in bed with NC in place and connected to oxygen at 2L/min, speaking in complete sentences while at rest. Patient becomes tachypneic and tired appearing after walking from bed to bathroom. SKIN: No rashes, ecchymoses or lesions. Cool and dry. HEENT: Atraumatic. Normocephalic. Extraocular motions intact. No scleral icterus. No injection or drainage. CARDIOVASCULAR: Regular rate and rhythm without murmurs, gallops, or rubs. RESPIRATORY: Slightly tachypneic with coarse breath sounds with crackles over bilateral bases. No significant increased WOB or retractions. O2 saturation 92% at rest. GASTROINTESTINAL: Abdomen soft, obese, nondistended. MUSCULOSKELETAL: 2+ pitting edema to knees bilaterally. Extremities without clubbing, cyanosis. No joint tenderness, effusion. No calf tenderness. NEUROLOGICAL: Awake and alert. Cranial nerves II through XII grossly intact. Motor and sensory grossly within normal limits. Normal speech. (Hugo Aguillon MD R1) A/P Assessment and Plan Pt is a 50 year old female with history of COPD presenting due to COPD exacerbation and likely pneumonia. Discharge Planning Pending respiratory improvement, likely in 2-[address] Mary Pitts (Hugo Aguillon MD R1) Attending Attestation Patient seen and examined. Case reviewed and discussed Agree with plan of care as discussed with me and documented in the resident note. (Chely Pitts MD) Problem List: (1) COPD exacerbation Status: Acute Plan: Admitted for COPD exacerbation, likely due to respiratory infection. - Duonebs Q6hrs - Albuterol Q2 hrs PRN SOB - Pro air inhaler 2 puffs Q4hrs prn SOB - Concentrated albuterol nebulizer 2.5 mg Q4hrs rpn SOB - Azithromycin 500mg PO daily - Rocephin 1Gm IV daily - Montelukast 10mg PO HS - Oxygen supplementation as needed. - Tessalon 200mg po tid PRN for cough - Pulmonology consulted; recommendations appreciated - Prednisone 30mg PO daily - Symbicort 2 puffs q12hrs Imaging: CXR 05/10: Patchy opacity at both lung bases, possibly suggestive of atelectasis vs early infiltrates CXR 05/14: Streaky opacity remains in both lungs. This is most consistent with chronic scarring and/or fibrosis. History: Pt with history of COPD, presenting with acute shortness of breath, WBC count 12 , ABG that showed respiratory alkalosis with pH of 7.51, PCO2 31, PO2 42, Oxygen saturation 76. CXR suggestive of possible early infiltrates. Repeat VBG showed pH of 7.40, PCO2 42, PO2 45. - BNP 188 (2) Leg edema Status: Acute Plan: Patient with increasing lower extremity edema today. Continue bumetanide 1 mg by mouth daily Continue metolazone 5 mg by mouth every other day Additional dose of bumetanide 1 mg by mouth today YEVGENIY stockings (3) DM (diabetes mellitus) Status: Chronic Plan: Home medications include Levemir 40 units BID and NovoLog 30 units with each meal. Hemoglobin A1c 9.5 from 05/02/16. Bedside glucose has remained significantly elevated since admission. Of note, she is on high-dose steroids as above and likely has infection. - She has required 33 units of SSI over the last 24hrs, blood glucose levels ranging from 180-245 - Levemir to 58 units BID - NovoLog 36 units TIDAC - Continue medium dose SS. - Continue gabapentin tid for neuropathic pain (4) CKD (chronic kidney disease) stage 3, GFR 30-59 ml/min Status: Acute Plan: Baseline creatinine around 1.5. Creatinine on 05/15 1.61, decreased from 2.06 on admission. Patient had CT-guided needle biopsy of right kidney on 08/01/15. Pathology report diagnosed sample as diffuse and nodular diabetic glomerulosclerosis. Global and segmental glomerulosclerosis. Interstitial fibrosis and tubular atrophy, severe. Arteriosclerosis, severe. - Monitor Is and Os - Monitor daily BMP - Consider consulting nephrology for renal function - Consider increased fluids versus increased diuresis (5) Fall Status: Acute Plan: Pt reported recent fall, and persistent right sided hip pain. She attributed fall to lower extremity weakness and feeling lightheaded. Right hip XR showed no evidence of fracture. -PT recommends PT at rehab versus home with home health PT (6) Essential hypertension Status: Chronic Plan: Currently holding Amlodipine, consider restarting if BP increases (7) Anemia Status: Chronic Plan: Continue home Ferrous sulfate (8) FEN/PPX Status: Acute Plan: Fluids: None Electrolytes: continue to monitor Nutrition: Diabetic Diet DVT PPX: Heparin GI PPX: Protonix (Home medication) (9) Hypokalemia Status: Resolved Plan: Pt with K+ of 4.0 on 05/15. -Continue to monitor (Hugo Aguillon MD R1) Hugo Aguillon MD R1 May 15, 2016 14:22 Chely Pitts MD May 15, 2016 17:14
[2016-05-15] MEDS ORDERED: BUMETANIDE 1 MG TAB PO ONE (15:00)
[2016-05-15] MEDS: cefTRIAXone INJ 1,000 MG in SODIUM CHLORIDE 0.9% INJ 100 ML IV SCH (16:22)
--- NOTE | 2016-05-15 18:57 | HHI.PR ---
Subjective Remarks 50 YOAA female with COPD,YOJANA,Lung infilt Breathing better Uses CPAP Weaned to NC OOB, ambulates Desaturates with ambualtion Objective Vital Signs Vital Signs Date Time Temp Pulse Resp B/P Pulse Ox O2 Delivery O2 Flow Rate FiO2 05/15/16 16:36 96 05/15/16 16:00 98.0 96 18 127/77 97 05/15/16 11:00 98.3 98 18 119/83 100 05/15/16 11:00 90 05/15/16 08:28 94 Nasal Cannula 2.00 05/15/16 08:28 87 20 104/59 94 05/15/16 07:57 94 Nasal Cannula 2.00 05/15/16 07:00 81 05/15/16 05:52 98.4 80 18 123/74 98 05/15/16 04:20 100 35 05/15/16 03:00 86 05/15/16 00:45 99 35 05/15/16 00:20 100 Bi-Pap 35 05/14/16 23:30 19 05/14/16 23:01 98.4 79 18 102/62 98 05/14/16 23:00 90 05/14/16 19:39 93 Nasal Cannula 2.00 05/14/16 19:25 97.9 76 18 115/74 98 05/14/16 19:25 96 Nasal Cannula 2.00 05/14/16 19:00 94 I/O 05/14/16 05/14/16 05/14/16 05/15/16 05/15/16 05/15/16 07:00 15:00 23:00 07:00 15:00 23:00 Intake Total 482 ml 0 ml 1520 ml 240 ml 720 ml Output Total 750 ml 2000 ml 900 ml Balance -268 ml 0 ml -480 ml -660 ml 720 ml Intake Oral 480 ml 0 ml 1520 ml 240 ml 720 ml IV Total 2 ml Output Urine Total 750 ml 2000 ml 900 ml # Voids 3 # Bowel Movements 0 0 Result Diagram: 05/15/1652705/15/16527 Objective Remarks GENERAL: WBWN AA female, mild sob SKIN: Warm and dry. HEAD: Normocephalic. EYES: No scleral icterus. No injection or drainage. NECK: Supple, trachea midline. No JVD or lymphadenopathy. CARDIOVASCULAR: Regular rate and rhythm without murmurs, gallops, or rubs. RESPIRATORY: Breath sounds equal bilaterally. No accessory muscle use. GASTROINTESTINAL: Abdomen soft, non-tender, nondistended. MUSCULOSKELETAL: No cyanosis, or edema. BACK: Nontender without obvious deformity. No CVA tenderness. A/P Assessment and Plan COPD exac improving Lung infilt Atelactesis YOJANA DM LUPUS PALAN: CPAP at night supplement 02 to keep sat >90% Aerosol nebs Symbicort bid Cont Abx Monitor BS PO Prednisone Ambulate with 02 Dez Millan MD May 15, 2016 18:57
[2016-05-15] MEDS: MONTELUKAST SODIUM 10 MG TAB PO SCH (20:52)
[2016-05-16] VITALS (9 sets, daily range): BP systolic 101–118; BP diastolic 62–76; PULSE 22–101; RESP 18–22; TEMP 97–99.2; O2SAT 90–100
[2016-05-16] MEDS: INSULIN ASPART SUPPLEMENTAL SCALE SQ SCH ×4 (06:38→21:51)
[2016-05-16] MEDS: HEPARIN SODIUM - SQ 10,000 UNITS/ML VIAL SQ SCH ×3 (06:38→21:51)
[2016-05-16] MEDS: ACETAMINOPHEN/CODEINE 300 MG/30 MG TAB PO PRN ×3 (06:41→19:18)
[2016-05-16] MEDS: RESP: ALBUTEROL 2.5 MG/IPRATROPIUM 0.5 MG NEB (SCH) INH ×4 (08:04→20:37)
--- NOTE | 2016-05-16 08:43 | HHI.FPPN ---
Subjective Remarks Pt seen and examined this morning. No acute events overnight. Pt reports that she feels better than yesterday but is not yet at her baseline. She was able to walk with PT, but had desaturations to the 70s when she sat down. Her breathing is improving overall. She denies chest pain, abdominal pain, nausea, vomiting. She continues to have pain in her right hip, but this is improving. (Suzy Clark MD R2) Objective Vitals Vital Signs Date Time Temp Pulse Resp B/P Pulse Ox O2 Delivery O2 Flow Rate FiO2 05/16/16 08:09 92 Nasal Cannula 2.00 05/16/16 04:00 97.0 75 18 110/73 100 05/16/16 03:17 100 35 05/16/16 00:00 97.7 86 18 104/62 100 05/15/16 23:32 98 35 05/15/16 21:04 Nasal Cannula 2.00 05/15/16 20:00 96.9 98 18 106/67 92 05/15/16 16:36 96 05/15/16 16:00 98.0 96 18 127/77 97 05/15/16 15:00 89 05/15/16 11:00 98.3 98 18 119/83 100 05/15/16 11:00 90 I/O 05/15/16 05/15/16 05/15/16 05/16/16 05/16/16 05/16/16 07:00 15:00 23:00 07:00 15:00 23:00 Intake Total 240 ml 720 ml 240 ml Output Total 900 ml Balance -660 ml 720 ml 240 ml Intake Oral 240 ml 720 ml 240 ml Output Urine Total 900 ml # Voids 3 3 # Bowel Movements 0 (Suzy Clark MD R2) Result Diagram: 05/15/1652705/15/16527 Objective Remarks GENERAL: well-nourished, well-developed, pt sitting up in bed with NC in place and connected to oxygen at 2L/min, speaking in complete sentences while at rest. SKIN: No rashes, ecchymoses or lesions. Cool and dry. HEENT: Atraumatic. Normocephalic. Extraocular motions intact. No scleral icterus. No injection or drainage. CARDIOVASCULAR: Regular rate and rhythm without murmurs, gallops, or rubs. RESPIRATORY: Clear to auscultation in upper lung be, crackles and decreased breath sounds in bases bilaterally. No increased WOB or accessory muscle use. GASTROINTESTINAL: Abdomen soft, obese, nondistended, +bowel sounds. MUSCULOSKELETAL: trace pitting edema to mid calf bilaterally. Extremities without clubbing, cyanosis. Mild tenderness with palpation of right hip. No calf tenderness. NEUROLOGICAL: Awake and alert. Motor and sensory grossly within normal limits. Normal speech. (Suzy Clark MD R2) A/P Assessment and Plan Pt is a 50 year old female with history of COPD presenting due to COPD exacerbation and likely pneumonia. Discharge Planning Pending respiratory improvement, likely in 1-[address] Pitts (Suzy Clark MD R2) Attending Attestation Patient seen and examined. Case reviewed and discussed with the resident team Agree with plan of care as discussed with me and documented in the resident note. (Chely Pitts MD) Problem List: (1) COPD exacerbation Status: Acute Plan: Admitted for COPD exacerbation, likely due to respiratory infection. - Duonebs Q6hrs - Albuterol Q2 hrs PRN SOB - Pro air inhaler 2 puffs Q4hrs prn SOB - Concentrated albuterol nebulizer 2.5 mg Q4hrs rpn SOB - Azithromycin 500mg PO daily - Rocephin 1Gm IV daily - Montelukast 10mg PO HS - Oxygen supplementation as needed. - Tessalon 200mg po tid PRN for cough - Pulmonology consulted; recommendations appreciated -Pt to use CPAP at night to maintain o2 saturation above 90%. - Prednisone 30mg PO daily - Symbicort 2 puffs q12hrs Imaging: CXR 05/10: Patchy opacity at both lung bases, possibly suggestive of atelectasis vs early infiltrates CXR 05/14: Streaky opacity remains in both lungs. This is most consistent with chronic scarring and/or fibrosis. (2) Leg edema Status: Acute Plan: Patient with lower extremity edema today, improving. Continue bumetanide 1 mg by mouth daily Continue metolazone 5 mg by mouth every other day Pt was given bumetanide 1 mg po x1 yesterday YEVGENIY stockings (3) DM (diabetes mellitus) Status: Chronic Plan: Home medications include Levemir 40 units BID and NovoLog 30 units with each meal. Hemoglobin A1c 9.5 from 05/02/16. Bedside glucose has remained significantly elevated since admission. Of note, she is on high-dose steroids as above and likely has infection. - She has required 28 units of SSI over the last 24hrs, blood glucose levels ranging from 150-415 - Levemir to 58 units BID - NovoLog 36 units TIDAC - Continue medium dose SS. - Continue gabapentin tid for neuropathic pain (4) CKD (chronic kidney disease) stage 3, GFR 30-59 ml/min Status: Acute Plan: Baseline creatinine around 1.5. Creatinine on 05/15 1.61, decreased from 2.06 on admission, labs pending for this morning. Patient had CT-guided needle biopsy of right kidney on 08/01/15. Pathology report diagnosed sample as diffuse and nodular diabetic glomerulosclerosis. Global and segmental glomerulosclerosis. Interstitial fibrosis and tubular atrophy, severe. Arteriosclerosis, severe. - Monitor Is and Os - Monitor daily BMP - Consider consulting nephrology for renal function (5) Fall Status: Acute Plan: Pt reported recent fall, and persistent right sided hip pain. She attributed fall to lower extremity weakness and feeling lightheaded. Right hip XR showed no evidence of fracture. -PT recommends PT at rehab versus home with home health PT (6) Essential hypertension Status: Chronic Plan: Currently holding Amlodipine, consider restarting if BP increases (7) Anemia Status: Chronic Plan: Continue home Ferrous sulfate (8) Hypokalemia Status: Resolved Plan: Resolved Pt with K+ of 4.0 on 05/15, labs pending for this morning -Continue to monitor (9) FEN/PPX Status: Acute Plan: Fluids: None Electrolytes: continue to monitor Nutrition: Diabetic Diet DVT PPX: Heparin GI PPX: Protonix (Home medication) (Suzy Clark MD R2) Suzy Clark MD R2 May 16, 2016 08:43 Chely Pitts MD May 17, 2016 15:21
[2016-05-16 09:49] LABS: AUTOMATED NEUTROPHIL # 9.2 TH/MM3 (1.8-7.7); BASOPHIL % 0.4 % (0.0-2.0); EOSINOPHIL # 0.3 TH/MM3 (0-0.4); EOSINOPHIL % 1.9 % (0.0-4.0); HEMATOCRIT 36.3 % (35.0-46.0); LYMPH % 20.6 % (9.0-44.0); LYMPHOCYTE # 2.7 TH/MM3 (1.0-4.8); MEAN CELL VOLUME 86.9 FL (80.0-100.0); MEAN CORPUSCULAR HGB CONC 32.2 % (32.0-36.0); MONO % 6.2 % (0.0-8.0); NEUT % 70.9 % (16.0-70.0); PLATELET COUNT 315 TH/MM3 (150-450); RED BLOOD COUNT 4.17 MIL/MM3 (4.00-5.30); RED CELL DISTRIBUTION WIDTH 16.8 % (11.6-17.2)
[2016-05-16] MEDS: INSULIN ASPART 1,000 UNITS/10 ML VIAL SQ SCH ×3 (09:52→18:33)
[2016-05-16] MEDS: INSULIN DETEMIR 100 UNITS/ML VIAL SQ SCH ×2 (09:52→21:51)
[2016-05-16] MEDS: BUMETANIDE 1 MG TAB PO SCH (09:54)
[2016-05-16] MEDS: FERROUS SULFATE 325 MG (65 MG ELEMENTAL IRON) TAB PO SCH ×2 (09:54→21:50)
[2016-05-16] MEDS: AZITHROMYCIN 250 MG TAB PO SCH (09:54)
[2016-05-16] MEDS: GABAPENTIN 300 MG CAP PO SCH ×2 (09:54→21:50)
[2016-05-16] MEDS: GABAPENTIN 400 MG CAP PO SCH ×2 (09:54→21:50)
[2016-05-16] MEDS: PANTOPRAZOLE SOD 40 MG DELAYED RELEASE TAB PO SCH (09:54)
[2016-05-16] MEDS: METOLAZONE 5 MG TAB PO SCH (09:55)
[2016-05-16] MEDS: ASPIRIN 81 MG CHEW TAB CHEW SCH (09:55)
[2016-05-16] MEDS: predniSONE 10 MG TAB PO SCH (09:55)
[2016-05-16] MEDS: SODIUM CHLORIDE 0.9% FLUSH 5 ML FLUSH IVF SCH ×4 (09:55→21:49)
[2016-05-16] MEDS: BUDESONIDE-FORMOTEROL 160/4.5 MCG INHALER INH SCH ×2 (09:56→21:49)
[2016-05-16 09:59] LABS: HEMO FLAGS AUTO DIFF
[2016-05-16 10:38] LABS: ALKALINE PHOSPHATASE 106 U/L (45-117); ALT (GPT) 37 U/L (10-53); ANION GAP 11 MEQ/L (5-15); AST (GOT) 16 U/L (15-37); BLOOD UREA NITROGEN 45 MG/DL (7-18); CHLORIDE 94 MEQ/L (98-107); GLOMERULAR FILTRATION RATE 41 ML/MIN (>89); POTASSIUM 4.1 MEQ/L (3.5-5.1); SODIUM (NA) 136 MEQ/L (136-145); TOTAL BILIRUBIN ADULT 0.2 MG/DL (0.2-1.0)
[2016-05-16 11:29] LABS: CORRECTED NUCLEATED RBC 1 /100 WBC (0-0); EOSINOPHILS 1 % (0-4); METAMYELOCYTES 1 % (0-1); MYELOCYTES 3 % (0-0); NEUTROPHIL # MANUAL DIFF 9.8 TH/MM3 (1.8-7.7); PLATELET ESTIMATE SMEAR NORMAL (NORMAL); PLATELET MORPHOLOGY NORMAL (NORMAL); POLYS (SEG NEUTROPHILS) 71 % (16-70); SCAN/DIFF FINAL DIFF MANUAL; WBC DIFF SAMPLE 100
[2016-05-16] MEDS: cefTRIAXone INJ 1,000 MG in SODIUM CHLORIDE 0.9% INJ 100 ML IV SCH (13:20)
[2016-05-16] MEDS ORDERED: INSULIN ASPART 1,000 UNITS/10 ML VIAL SQ SCH (17:00)
--- NOTE | 2016-05-16 19:41 | HHI.PR ---
Subjective Remarks 50 YOAA female with COPD,YOJANA,Lung infilt Breathing better Uses CPAP Weaned to NC Occ cough, no sputum No Fever Feels weak. Objective Vital Signs Vital Signs Date Time Temp Pulse Resp B/P Pulse Ox O2 Delivery O2 Flow Rate FiO2 05/16/16 15:39 95 Nasal Cannula 2.00 05/16/16 14:12 97.9 22 22 116/63 98 05/16/16 12:00 97.4 77 20 101/65 96 05/16/16 09:55 92 Nasal Cannula 2.00 05/16/16 08:09 92 Nasal Cannula 2.00 05/16/16 08:00 99.2 87 20 118/76 90 05/16/16 04:00 97.0 75 18 110/73 100 05/16/16 03:17 100 35 05/16/16 00:00 97.7 86 18 104/62 100 05/15/16 23:32 98 35 05/15/16 21:04 Nasal Cannula 2.00 05/15/16 20:00 96.9 98 18 106/67 92 I/O 05/15/16 05/15/16 05/15/16 05/16/16 05/16/16 05/16/16 07:00 15:00 23:00 07:00 15:00 23:00 Intake Total 240 ml 720 ml 240 ml 720 ml Output Total 900 ml Balance -660 ml 720 ml 240 ml 720 ml Intake Oral 240 ml 720 ml 240 ml 720 ml Output Urine Total 900 ml # Voids 3 3 8 # Bowel Movements 0 Result Diagram: 05/16/1644 05/16/16 0844 Objective Remarks GENERAL: WBWN AA female, mild sob SKIN: Warm and dry. HEAD: Normocephalic. EYES: No scleral icterus. No injection or drainage. NECK: Supple, trachea midline. No JVD or lymphadenopathy. CARDIOVASCULAR: Regular rate and rhythm without murmurs, gallops, or rubs. RESPIRATORY: Breath sounds equal bilaterally. No accessory muscle use. GASTROINTESTINAL: Abdomen soft, non-tender, nondistended. MUSCULOSKELETAL: No cyanosis, or edema. BACK: Nontender without obvious deformity. No CVA tenderness. A/P Assessment and Plan COPD exac improving Lung infilt Atelactesis YOJANA DM LUPUS PLAN: CPAP at night supplement 02 to keep sat >90% Aerosol nebs Symbicort bid Cont Abx Monitor BS PO Prednisone Ambulate with 02 Dez Millan MD May 16, 2016 19:41
[2016-05-16] MEDS: MONTELUKAST SODIUM 10 MG TAB PO SCH (21:50)
[2016-05-16] MEDS: BENZONATATE 100 MG CAP PO PRN (22:03)
[2016-05-16] MEDS ORDERED: GLUCAGON 1 MG/ML VIAL OTHER PRN (22:15)
[2016-05-16] MEDS ORDERED: DEXTROSE 50% IN WATER 50 ML VIAL(D50) IV PUSH PRN (22:15)
[2016-05-17] VITALS (12 sets, daily range): BP systolic 94–125; BP diastolic 60–84; PULSE 75–95; RESP 17–24; TEMP 96.7–98; O2SAT 93–100
[2016-05-17] MEDS: HEPARIN SODIUM - SQ 10,000 UNITS/ML VIAL SQ SCH ×3 (04:54→23:36)
[2016-05-17] MEDS: INSULIN ASPART SUPPLEMENTAL SCALE SQ SCH ×4 (04:57→23:35)
[2016-05-17] MEDS: RESP: ALBUTEROL 2.5 MG/IPRATROPIUM 0.5 MG NEB (SCH) INH ×2 (07:34→11:40)
[2016-05-17 07:59] LABS: AUTOMATED NEUTROPHIL # 8.4 TH/MM3 (1.8-7.7); BASOPHIL % 0.3 % (0.0-2.0); EOSINOPHIL # 0.2 TH/MM3 (0-0.4); EOSINOPHIL % 1.3 % (0.0-4.0); LYMPH % 19.6 % (9.0-44.0); LYMPHOCYTE # 2.3 TH/MM3 (1.0-4.8); MEAN CELL VOLUME 85.7 FL (80.0-100.0); MEAN CORPUSCULAR HGB CONC 32.7 % (32.0-36.0); MONO % 6.1 % (0.0-8.0); NEUT % 72.7 % (16.0-70.0); PLATELET COUNT 285 TH/MM3 (150-450); RED BLOOD COUNT 4.08 MIL/MM3 (4.00-5.30); RED CELL DISTRIBUTION WIDTH 16.9 % (11.6-17.2); WHITE BLOOD COUNT 11.5 TH/MM3 (4.0-11.0)
[2016-05-17 08:04] LABS: HEMO FLAGS AUTO DIFF
[2016-05-17 08:51] LABS: ALKALINE PHOSPHATASE 98 U/L (45-117); ALT (GPT) 34 U/L (10-53); ANION GAP 10 MEQ/L (5-15); AST (GOT) 13 U/L (15-37); BICARBONATE 31.6 MEQ/L (21.0-32.0); BLOOD UREA NITROGEN 43 MG/DL (7-18); CHLORIDE 93 MEQ/L (98-107); GLOMERULAR FILTRATION RATE 47 ML/MIN (>89); POTASSIUM 3.8 MEQ/L (3.5-5.1); SODIUM (NA) 135 MEQ/L (136-145); TOTAL BILIRUBIN ADULT 0.2 MG/DL (0.2-1.0)
[2016-05-17 09:24] LABS: MYELOCYTES 1 % (0-0); NEUTROPHIL # MANUAL DIFF 8.1 TH/MM3 (1.8-7.7); POLYS (SEG NEUTROPHILS) 69 % (16-70); SCAN/DIFF FINAL DIFF MANUAL; WBC DIFF SAMPLE 100
[2016-05-17 09:25] LABS: PLATELET ESTIMATE SMEAR NORMAL (NORMAL); PLATELET MORPHOLOGY NORMAL (NORMAL)
[2016-05-17] MEDS: INSULIN ASPART 1,000 UNITS/10 ML VIAL SQ SCH ×3 (09:36→18:30)
[2016-05-17] MEDS: PANTOPRAZOLE SOD 40 MG DELAYED RELEASE TAB PO SCH (09:36)
[2016-05-17] MEDS: FERROUS SULFATE 325 MG (65 MG ELEMENTAL IRON) TAB PO SCH ×2 (09:36→23:34)
[2016-05-17] MEDS: GABAPENTIN 300 MG CAP PO SCH ×2 (09:36→23:34)
[2016-05-17] MEDS: GABAPENTIN 400 MG CAP PO SCH ×2 (09:36→23:34)
[2016-05-17] MEDS: INSULIN DETEMIR 100 UNITS/ML VIAL SQ SCH ×2 (09:36→23:35)
[2016-05-17] MEDS: predniSONE 10 MG TAB PO SCH (09:36)
[2016-05-17] MEDS: BUDESONIDE-FORMOTEROL 160/4.5 MCG INHALER INH SCH ×2 (09:37→21:00)
[2016-05-17] MEDS: AZITHROMYCIN 250 MG TAB PO SCH (09:37)
[2016-05-17] MEDS: ASPIRIN 81 MG CHEW TAB CHEW SCH (09:37)
[2016-05-17] MEDS: SODIUM CHLORIDE 0.9% FLUSH 5 ML FLUSH IVF SCH ×4 (09:37→23:46)
[2016-05-17] MEDS: BUMETANIDE 1 MG TAB PO SCH (09:37)
[2016-05-17] MEDS: ACETAMINOPHEN/CODEINE 300 MG/30 MG TAB PO PRN ×3 (09:39→23:34)
--- NOTE | 2016-05-17 11:13 | HHI.FPPN ---
Subjective Remarks Overnight, the patient had pulse ranging from 70s to 101, blood pressure 100s to 120s over 60s to 80s, sinus oxygen saturation 95-100% on 2 L nasal cannula, otherwise afebrile and vital signs stable. Patient reports that she is able to ambulate from bed to bathroom and back to bed, but by the time she arrives back at the bed she has a coughing fit, which makes her feel short of breath. She does report one episode of some blood tinged yellow sputum associated with coughing. She reports that the cough medication seemed to be helping. Patient reports a headache. She also reports numbness and tingling of her lower extremity is bilaterally. She also reports some right hip pain where she fell, which she says is being exacerbated by a change in the weather. She also requests a shower. (Hugo Aguillon MD R1) Objective Vitals Vital Signs Date Time Temp Pulse Resp B/P Pulse Ox O2 Delivery O2 Flow Rate FiO2 05/17/16 09:40 100 Nasal Cannula 2.00 05/17/16 07:41 98.0 77 17 107/70 100 05/17/16 07:36 96 Nasal Cannula 2.00 05/17/16 04:25 98 35 05/17/16 04:00 97.0 75 18 124/84 100 05/17/16 00:40 98 35 05/17/16 00:00 96.9 82 17 100/60 100 05/16/16 21:48 16 05/16/16 21:37 Nasal Cannula 2.00 35 05/16/16 20:00 97.6 101 18 117/72 95 05/16/16 15:39 95 Nasal Cannula 2.00 05/16/16 14:12 97.9 22 22 116/63 98 05/16/16 12:00 97.4 77 20 101/65 96 I/O 05/16/16 05/16/16 05/16/16 05/17/16 05/17/16 05/17/16 07:00 15:00 23:00 07:00 15:00 23:00 Intake Total 240 ml 720 ml 150 ml Balance 240 ml 720 ml 150 ml Intake Oral 240 ml 720 ml 150 ml # Voids 3 8 2 (Hugo Aguillon MD R1) Result Diagram: 05/17/16 0654 05/17/16 0654 Imaging Last Impressions Chest X-Ray 05/14/16 0900 Signed Impressions: Service Date/Time: Saturday, May 14, 2016 09:19 - CONCLUSION: Streaky opacity remains in both lungs. This is most consistent with chronic scarring and/or fibrosis. Hugo Frank MD Hip and Pelvis X-Ray 05/10/16 0000 Signed Impressions: Service Date/Time: May 15:07 - CONCLUSION: 1. The right hip is intact with mild degenerative change and no acute fracture or malalignment. 2. Oderate degenerative change in the left hip. Hugo Frank MD Objective Remarks GENERAL: well-nourished, well-developed, pt lying in bed with NC in place and connected to oxygen at 2L/min, speaking in complete sentences while at rest. SKIN: No rashes, ecchymoses or lesions. Cool and dry. HEENT: Atraumatic. Normocephalic. Extraocular motions intact. No scleral icterus. No injection or drainage. CARDIOVASCULAR: Regular rate and rhythm without murmurs, gallops, or rubs. RESPIRATORY: Clear to auscultation in upper lung be, crackles and decreased breath sounds in bases bilaterally. No increased WOB or accessory muscle use. GASTROINTESTINAL: Abdomen soft, obese, nondistended, +bowel sounds. MUSCULOSKELETAL: trace pitting edema of right leg, but not left leg. Extremities without clubbing, cyanosis. Mild tenderness with palpation of right hip. No calf tenderness. NEUROLOGICAL: Awake and alert. Motor and sensory grossly within normal limits. Normal speech. (Hugo Aguillon MD R1) A/P Assessment and Plan Pt is a 50 year old female with history of COPD presenting due to COPD exacerbation and likely pneumonia. Discharge Planning Pending respiratory improvement, likely in 1-2 days. stephanie Pitts (Hugo Aguillon MD R1) Attending Attestation Patient seen and examined. Case reviewed and discussed Agree with plan of care as discussed with me and documented in the resident note. (Chely Pitts MD) Problem List: (1) COPD exacerbation Status: Acute Plan: Admitted for COPD exacerbation, likely due to respiratory infection. - Duonebs Q6hrs - Albuterol Q2 hrs PRN SOB - Pro air inhaler 2 puffs Q4hrs prn SOB - Concentrated albuterol nebulizer 2.5 mg Q4hrs rpn SOB - Azithromycin 500mg PO daily (05/11-05/17) for 5 more days - Rocephin 1 gram IV daily (05/11-05/17) to be changed to 5 more days of Ceftin 500 mg by mouth twice a day in preparation for discharge - Montelukast 10mg PO HS - Oxygen supplementation as needed. - Tessalon 200mg po tid PRN for cough - Pulmonology consulted; recommendations appreciated - Pt to use CPAP at night to maintain O2 saturation above 90%. - Prednisone 10 mg PO tid - Symbicort 2 puffs q12hrs - Discussed discharge planning with Dr. Millan. Recommendations appreciated above Imaging: CXR 05/10: Patchy opacity at both lung bases, possibly suggestive of atelectasis vs early infiltrates CXR 05/14: Streaky opacity remains in both lungs. This is most consistent with chronic scarring and/or fibrosis. (2) Leg edema Status: Acute Plan: Patient with lower extremity edema today, improving. Continue bumetanide 1 mg by mouth daily Continue metolazone 5 mg by mouth every other day YEVGENIY stockings (3) DM (diabetes mellitus) Status: Chronic Plan: Home medications include Levemir 40 units BID and NovoLog 30 units with each meal. Hemoglobin A1c 9.5 from 05/02/16. Bedside glucose has remained significantly elevated since admission. Of note, she is on high-dose steroids as above and likely has infection. - She has required 28 units of SSI over the last 24hrs, blood glucose levels ranging from 150-415 - Levemir to 58 units BID - NovoLog 36 units TIDAC - Continue medium dose SS. - Continue gabapentin tid for neuropathic pain (4) CKD (chronic kidney disease) stage 3, GFR 30-59 ml/min Status: Acute Plan: Baseline creatinine around 1.5. Creatinine today was 1.42, decreased from 2.06 on admission. Patient had CT-guided needle biopsy of right kidney on 08/01/15. 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 Interstitial fibrosis and tubular atrophy, severe. Arteriosclerosis, severe. - Monitor Is and Os - Monitor daily BMP - Consider consulting nephrology for renal function (5) Fall Status: Acute Plan: Pt reported recent fall, and persistent right sided hip pain. She attributed fall to lower extremity weakness and feeling lightheaded. Right hip XR showed no evidence of fracture. -PT recommends PT at rehab versus home with home health PT, but patient's insurance will not cover this. We'll discuss discharge planning with outpatient case manager. (6) Essential hypertension Status: Chronic Plan: Currently holding Amlodipine, consider restarting if BP increases (7) Anemia Status: Chronic Plan: Continue home Ferrous sulfate (8) Hypokalemia Status: Resolved Plan: Resolved Pt with K+ of 3.8 today -Continue to monitor (9) FEN/PPX Status: Acute Plan: Fluids: None Electrolytes: continue to monitor Nutrition: Diabetic Diet DVT PPX: Heparin GI PPX: Protonix (Home medication) (Hugo Aguillon MD R1) Hugo Aguillon MD R1 May 17, 2016 11:13 Chely Pitts MD May 18, 2016 10:03
[2016-05-17] MEDS: cefTRIAXone INJ 1,000 MG in SODIUM CHLORIDE 0.9% INJ 100 ML IV SCH (13:41)
[2016-05-17] MEDS: BENZONATATE 100 MG CAP PO PRN ×2 (13:46→23:33)
--- NOTE | 2016-05-17 18:43 | HHI.PR ---
Subjective Remarks 50 YOAA female with COPD,YOJANA,Lung infilt Breathing better Uses CPAP Weaned to NC Occ cough, no sputum No Fever Feels weak. No new complaint Objective Vital Signs Vital Signs Date Time Temp Pulse Resp B/P Pulse Ox O2 Delivery O2 Flow Rate FiO2 05/17/16 17:54 95 05/17/16 17:02 87 125/76 05/17/16 15:58 97.4 95 18 94/65 93 05/17/16 12:00 97.1 90 24 102/71 93 05/17/16 09:40 100 Nasal Cannula 2.00 05/17/16 07:41 98.0 77 17 107/70 100 05/17/16 07:36 96 Nasal Cannula 2.00 05/17/16 04:25 98 35 05/17/16 04:00 97.0 75 18 124/84 100 05/17/16 00:40 98 35 05/17/16 00:00 96.9 82 17 100/60 100 05/16/16 21:48 16 05/16/16 21:37 Nasal Cannula 2.00 35 05/16/16 20:00 97.6 101 18 117/72 95 I/O 05/16/16 05/16/16 05/16/16 05/17/16 05/17/16 05/17/16 07:00 15:00 23:00 07:00 15:00 23:00 Intake Total 240 ml 720 ml 150 ml 712 ml Balance 240 ml 720 ml 150 ml 712 ml Intake Oral 240 ml 720 ml 150 ml 600 ml IV Total 112 ml # Voids 3 8 5 1 # Bowel Movements 1 Result Diagram: 05/17/16 0654 05/17/16 0654 Objective Remarks GENERAL: WBWN AA female, mild sob SKIN: Warm and dry. HEAD: Normocephalic. EYES: No scleral icterus. No injection or drainage. NECK: Supple, trachea midline. No JVD or lymphadenopathy. CARDIOVASCULAR: Regular rate and rhythm without murmurs, gallops, or rubs. RESPIRATORY: Breath sounds equal bilaterally. No accessory muscle use. GASTROINTESTINAL: Abdomen soft, non-tender, nondistended. MUSCULOSKELETAL: No cyanosis, or edema. BACK: Nontender without obvious deformity. No CVA tenderness. A/P Assessment and Plan COPD exac improving Lung infilt Atelactesis YOJANA DM LUPUS PLAN: CPAP at night supplement 02 to keep sat >90% Aerosol nebs Symbicort bid Cont Abx Monitor BS PO Prednisone Ambulate with 02 Change to po Abx DC plans underway. Dez Millan MD May 17, 2016 18:43
[2016-05-17] MEDS: MONTELUKAST SODIUM 10 MG TAB PO SCH (23:34)
[2016-05-18] VITALS (13 sets, daily range): BP systolic 100–121; BP diastolic 57–74; PULSE 18–90; RESP 17–20; TEMP 96–97.2; O2SAT 92–100
[2016-05-18] MEDS: RESP: ALBUTEROL 2.5 MG/3 ML NEB (PRN) INH (00:48)
[2016-05-18] MEDS: HEPARIN SODIUM - SQ 10,000 UNITS/ML VIAL SQ SCH ×3 (06:00→22:13)
[2016-05-18] MEDS: INSULIN ASPART SUPPLEMENTAL SCALE SQ SCH ×4 (06:18→22:11)
--- NOTE | 2016-05-18 08:48 | HHI.FPPN ---
Subjective Remarks Pt seen and examined. This morning at around 6 am she had a nose bleed which has now resolved. Shortness of breath is improving. She continues to feel short of breath after walking, no issues with breathing while at rest. She reports feeling significantly improved, almost at her baseline. Denies chest pain, abdominal pain, calf tenderness. (Suzy Clark MD R2) Objective Vitals Vital Signs Date Time Temp Pulse Resp B/P Pulse Ox O2 Delivery O2 Flow Rate FiO2 05/18/16 08:22 97 Nasal Cannula 3.00 05/18/16 08:00 96.0 80 18 100/57 100 05/18/16 06:19 88 18 104/68 100 05/18/16 04:44 99 35 05/18/16 04:00 97.0 77 18 114/69 100 05/18/16 01:13 16 05/18/16 00:53 92 35 05/18/16 00:48 92 Nasal Cannula 2.00 05/18/16 00:00 96.3 85 17 100/58 94 05/17/16 23:36 Nasal Cannula 2.00 35 05/17/16 21:28 92 05/17/16 20:00 96.7 90 18 119/73 97 05/17/16 17:54 95 05/17/16 17:02 87 125/76 05/17/16 15:58 97.4 95 18 94/65 93 05/17/16 12:00 97.1 90 24 102/71 93 05/17/16 09:40 100 Nasal Cannula 2.00 I/O 05/17/16 05/17/16 05/17/16 05/18/16 05/18/16 05/18/16 07:00 15:00 23:00 07:00 15:00 23:00 Intake Total 150 ml 712 ml 350 ml Balance 150 ml 712 ml 350 ml Intake Oral 150 ml 600 ml 350 ml IV Total 112 ml # Voids 5 1 2 # Bowel Movements 1 (Suzy Clark MD R2) Result Diagram: 05/17/1654 05/17/16 0654 Objective Remarks GENERAL: well-nourished, well-developed, pt lying in bed with NC in place and connected to oxygen at 2L/min, speaking in complete sentences while at rest. SKIN: No rashes, ecchymoses or lesions. Cool and dry. HEENT: Atraumatic. Normocephalic. Extraocular motions intact. No scleral icterus. No injection or drainage. CARDIOVASCULAR: Regular rate and rhythm without murmurs, gallops, or rubs. RESPIRATORY: Clear to auscultation in upper lung be, crackles and decreased breath sounds in bases bilaterally. No increased WOB or accessory muscle use. GASTROINTESTINAL: Abdomen soft, obese, nondistended, +bowel sounds. MUSCULOSKELETAL: Extremities without clubbing, cyanosis, lower extremity edema has improved. Mild tenderness with palpation of right hip. No calf tenderness. NEUROLOGICAL: Awake and alert. Motor and sensory grossly within normal limits. Normal speech. (Suzy Clark MD R2) A/P Assessment and Plan Pt is a 50 year old female with history of COPD presenting due to COPD exacerbation and likely pneumonia. Discharge Planning Anticipate discharge later today. wdw Dr. Pitts (Suzy Clark MD R2) Attending Attestation Patient seen and examined. Case reviewed and discussed with the resident team, and pulmonology, Dr. Millan Agree with plan of care as discussed with me and documented in the resident note. CM working on discharge planning. (Chely Pitts MD) Problem List: (1) COPD exacerbation Status: Acute Plan: Admitted for COPD exacerbation, likely due to respiratory infection. - Albuterol Q2 hrs PRN SOB - Pro air inhaler 2 puffs Q4hrs prn SOB - Concentrated albuterol nebulizer 2.5 mg Q4hrs rpn SOB - Azithromycin 500mg PO daily (05/11-05/18) to be continued for 5 days after discharge - Ceftin 500mg po BID started today, to be continued for 5 days after discharge - Rocephin 1 gram IV daily (05/11-05/17) - Montelukast 10mg PO HS - Oxygen supplementation as needed. - Tessalon 200mg po tid PRN for cough - Pulmonology consulted; recommendations appreciated - Pt to use CPAP at night to maintain O2 saturation above 90%. - Prednisone 10 mg PO tid - Symbicort 2 puffs q12hrs - Discussed discharge planning with Dr. Millan. Recommendations appreciated above Imaging: CXR 05/10: Patchy opacity at both lung bases, possibly suggestive of atelectasis vs early infiltrates CXR 05/14: Streaky opacity remains in both lungs. This is most consistent with chronic scarring and/or fibrosis. (2) Leg edema Status: Acute Plan: Patient with lower extremity edema today, improving. Continue bumetanide 1 mg by mouth daily Continue metolazone 5 mg by mouth every other day YEVGENIY stockings (3) DM (diabetes mellitus) Status: Chronic Plan: Home medications include Levemir 40 units BID and NovoLog 30 units with each meal. Hemoglobin A1c 9.5 from 05/02/16. Bedside glucose has remained significantly elevated since admission. Of note, she is on high-dose steroids as above and likely has infection. - She has required 20 units of SSI over the last 24hrs - Levemir to 40 units BID - NovoLog 20 units TIDAC - Continue low dose SS. - Continue gabapentin tid for neuropathic pain (4) CKD (chronic kidney disease) stage 3, GFR 30-59 ml/min Status: Acute Plan: Baseline creatinine around 1.5. Creatinine today was 1.51, decreased from 2.06 on admission. Patient had CT-guided needle biopsy of right kidney on 08/01/15. 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 Interstitial fibrosis and tubular atrophy, severe. Arteriosclerosis, severe. - Monitor Is and Os - Monitor daily BMP - Consider consulting nephrology for renal function (5) Fall Status: Acute Plan: Pt reported recent fall, and persistent right sided hip pain. She attributed fall to lower extremity weakness and feeling lightheaded. Right hip XR showed no evidence of fracture. -PT recommends PT at rehab versus home with home health PT, but patient's insurance will not cover this. We'll discuss discharge planning with pillowcase folder. (6) Essential hypertension Status: Chronic Plan: Currently holding Amlodipine, consider restarting if BP increases (7) Anemia Status: Chronic Plan: Continue home Ferrous sulfate (8) Hypokalemia Status: Resolved Plan: Resolved Pt with K+ of 4.0 today -Continue to monitor (9) FEN/PPX Status: Acute Plan: Fluids: None Electrolytes: continue to monitor Nutrition: Diabetic Diet DVT PPX: Heparin GI PPX: Protonix (Home medication) (Suzy Clark MD R2) Suzy Clark MD R2 May 18, 2016 08:48 Chely Pitts MD May 18, 2016 13:47
--- NOTE | 2016-05-18 08:51 | HHI.FF ---
Face to Face Verification Diagnosis: (1) Hypoxia (2) COPD (chronic obstructive pulmonary disease) (3) COPD exacerbation (4) Leg edema (5) Anemia (6) Diabetes mellitus (7) Osteoarthritis Physical Therapy Order: Improve ambulation, Strength and gait training Home Health Nursing Order: Oxygen administration education Nursing assessment with vital signs I have seen patient Mireya See on 05/18/16. My clinical findings support the need for the requested home health care services because: She has severe COPD, requires oxygen at baseline. Ltd mobility - disease progression Patient has SOB Deconditioned w/ increased weakness High risk of falls I certify that my clinical findings support that this patient is homebound because: She has severe COPD, requires oxygen Hx COPD- exertion dyspnea/weakness Unsteady gait/balance Suzy Clark MD R2 May 18, 2016 08:51 Chely Pitts MD May 18, 2016 10:02
[2016-05-18] MEDS ORDERED: AQUAPHOR OINT 50 APPLIC/50 GM TUBE TOP PRN (09:00)
[2016-05-18] MEDS: ASPIRIN 81 MG CHEW TAB CHEW SCH (09:07)
[2016-05-18] MEDS: predniSONE 10 MG TAB PO SCH ×3 (09:07→18:36)
[2016-05-18] MEDS: FERROUS SULFATE 325 MG (65 MG ELEMENTAL IRON) TAB PO SCH ×2 (09:07→22:10)
[2016-05-18] MEDS: BUMETANIDE 1 MG TAB PO SCH (09:07)
[2016-05-18] MEDS: INSULIN DETEMIR 100 UNITS/ML VIAL SQ SCH ×2 (09:07→22:12)
[2016-05-18] MEDS: PANTOPRAZOLE SOD 40 MG DELAYED RELEASE TAB PO SCH (09:07)
[2016-05-18] MEDS: AZITHROMYCIN 250 MG TAB PO SCH (09:08)
[2016-05-18] MEDS: GABAPENTIN 300 MG CAP PO SCH ×2 (09:08→22:09)
[2016-05-18] MEDS: ACETAMINOPHEN/CODEINE 300 MG/30 MG TAB PO PRN ×2 (09:08→18:36)
[2016-05-18] MEDS: CEFUROXIME AXETIL 500 MG TAB PO SCH ×2 (09:08→22:11)
[2016-05-18] MEDS: SODIUM CHLORIDE 0.9% FLUSH 5 ML FLUSH IVF SCH ×4 (09:09→22:15)
[2016-05-18] MEDS: BUDESONIDE-FORMOTEROL 160/4.5 MCG INHALER INH SCH ×2 (09:09→22:15)
[2016-05-18] MEDS: GABAPENTIN 400 MG CAP PO SCH ×2 (09:14→22:10)
[2016-05-18] MEDS: METOLAZONE 5 MG TAB PO SCH (09:14)
[2016-05-18] MEDS: BENZONATATE 100 MG CAP PO PRN ×2 (09:14→22:09)
[2016-05-18] MEDS: INSULIN ASPART 1,000 UNITS/10 ML VIAL SQ SCH ×3 (09:15→18:37)
[2016-05-18] MEDS ORDERED: BENZ100 PO (09:25)
[2016-05-18] MEDS ORDERED: PRED10 PO (09:25)
[2016-05-18] MEDS ORDERED: ZITH250T PO (09:25)
[2016-05-18] MEDS ORDERED: SYMB160A INH (09:25)
[2016-05-18] MEDS ORDERED: CEFT500T3 PO (09:25)
[2016-05-18 10:12] LABS: HEMATOCRIT 37.5 % (35.0-46.0); MEAN CELL VOLUME 86.1 FL (80.0-100.0); MEAN CORPUSCULAR HEMOGLOBIN 28.2 PG (27.0-34.0); MEAN CORPUSCULAR HGB CONC 32.7 % (32.0-36.0); PLATELET COUNT 319 TH/MM3 (150-450); RED BLOOD COUNT 4.35 MIL/MM3 (4.00-5.30); RED CELL DISTRIBUTION WIDTH 16.8 % (11.6-17.2); REVIEW FLAG FINAL; WHITE BLOOD COUNT 10.9 TH/MM3 (4.0-11.0)
[2016-05-18 10:38] LABS: BICARBONATE 32.3 MEQ/L (21.0-32.0)
--- NOTE | 2016-05-18 12:03 | HHI.PR ---
Subjective Remarks 50 YOAA female with COPD,YOJANA,Lung infilt Breathing better Uses CPAP Weaned to NC Occ cough, no sputum No Fever Feels weak. No new complaint Objective Vital Signs Vital Signs Date Time Temp Pulse Resp B/P Pulse Ox O2 Delivery O2 Flow Rate FiO2 05/18/16 10:08 18 05/18/16 08:22 97 Nasal Cannula 3.00 05/18/16 08:00 96.0 80 18 100/57 100 05/18/16 07:00 Nasal Cannula 2.00 05/18/16 06:19 88 18 104/68 100 05/18/16 04:44 99 35 05/18/16 04:00 97.0 77 18 114/69 100 05/18/16 00:53 92 35 05/18/16 00:48 92 Nasal Cannula 2.00 05/18/16 00:00 96.3 85 17 100/58 94 05/17/16 23:36 Nasal Cannula 2.00 35 05/17/16 21:28 92 05/17/16 20:00 96.7 90 18 119/73 97 05/17/16 17:54 95 05/17/16 17:02 87 125/76 05/17/16 15:58 97.4 95 18 94/65 93 I/O 05/17/16 05/17/16 05/17/16 05/18/16 05/18/16 05/18/16 07:00 15:00 23:00 07:00 15:00 23:00 Intake Total 150 ml 712 ml 350 ml Balance 150 ml 712 ml 350 ml Intake Oral 150 ml 600 ml 350 ml IV Total 112 ml # Voids 5 1 2 # Bowel Movements 1 Result Diagram: 05/18/1691605/18/16916 Objective Remarks GENERAL: WBWN AA female, mild sob SKIN: Warm and dry. HEAD: Normocephalic. EYES: No scleral icterus. No injection or drainage. NECK: Supple, trachea midline. No JVD or lymphadenopathy. CARDIOVASCULAR: Regular rate and rhythm without murmurs, gallops, or rubs. RESPIRATORY: Breath sounds equal bilaterally. No accessory muscle use. GASTROINTESTINAL: Abdomen soft, non-tender, nondistended. MUSCULOSKELETAL: No cyanosis, or edema. BACK: Nontender without obvious deformity. No CVA tenderness. A/P Assessment and Plan COPD exac improving Lung infilt Atelactesis YOJANA DM LUPUS PLAN: CPAP at night supplement 02 to keep sat >90% Aerosol nebs Symbicort bid Cont Abx Monitor BS PO Prednisone Ambulate with 02 Change to po Abx DC plans underway. Advised to FU with Dez West MD May 18, 2016 12:02
[2016-05-18] MEDS: MONTELUKAST SODIUM 10 MG TAB PO SCH (22:11)
[2016-05-19] VITALS (7 sets, daily range): BP systolic 108–136; BP diastolic 69–82; PULSE 76–90; RESP 16–20; TEMP 96.6–97.8; O2SAT 98–100
[2016-05-19] MEDS: RESP: ALBUTEROL 2.5 MG/3 ML NEB (PRN) INH (00:08)
[2016-05-19] MEDS: INSULIN ASPART SUPPLEMENTAL SCALE SQ SCH ×2 (06:19→12:33)
[2016-05-19] MEDS: HEPARIN SODIUM - SQ 10,000 UNITS/ML VIAL SQ SCH ×2 (06:19→12:27)
[2016-05-19] MEDS: AZITHROMYCIN 250 MG TAB PO SCH (08:56)
[2016-05-19] MEDS: ASPIRIN 81 MG CHEW TAB CHEW SCH (08:56)
[2016-05-19] MEDS: FERROUS SULFATE 325 MG (65 MG ELEMENTAL IRON) TAB PO SCH (08:56)
[2016-05-19] MEDS: BUMETANIDE 1 MG TAB PO SCH (08:56)
[2016-05-19] MEDS: CEFUROXIME AXETIL 500 MG TAB PO SCH (08:56)
[2016-05-19] MEDS: GABAPENTIN 400 MG CAP PO SCH (08:56)
[2016-05-19] MEDS: predniSONE 10 MG TAB PO SCH ×2 (08:56→12:34)
[2016-05-19] MEDS: PANTOPRAZOLE SOD 40 MG DELAYED RELEASE TAB PO SCH (08:56)
[2016-05-19] MEDS: GABAPENTIN 300 MG CAP PO SCH (08:56)
[2016-05-19] MEDS: BUDESONIDE-FORMOTEROL 160/4.5 MCG INHALER INH SCH (08:57)
[2016-05-19] MEDS: INSULIN DETEMIR 100 UNITS/ML VIAL SQ SCH (08:57)
[2016-05-19] MEDS: INSULIN ASPART 1,000 UNITS/10 ML VIAL SQ SCH ×2 (08:58→12:34)
[2016-05-19] MEDS: SODIUM CHLORIDE 0.9% FLUSH 5 ML FLUSH IVF SCH ×2 (08:58→09:00)
[2016-05-19] MEDS: BENZONATATE 100 MG CAP PO PRN (09:05)
[2016-05-19] MEDS: ACETAMINOPHEN/CODEINE 300 MG/30 MG TAB PO PRN (09:05)
[2016-05-19 09:45] LABS: AUTOMATED NEUTROPHIL # 8.7 TH/MM3 (1.8-7.7); BASOPHIL % 0.4 % (0.0-2.0); EOSINOPHIL # 0.1 TH/MM3 (0-0.4); EOSINOPHIL % 0.7 % (0.0-4.0); HEMATOCRIT 35.1 % (35.0-46.0); LYMPH % 17.8 % (9.0-44.0); MEAN CELL VOLUME 85.8 FL (80.0-100.0); MEAN CORPUSCULAR HEMOGLOBIN 27.6 PG (27.0-34.0); MEAN CORPUSCULAR HGB CONC 32.1 % (32.0-36.0); MONO % 6.1 % (0.0-8.0); PLATELET COUNT 290 TH/MM3 (150-450); RED BLOOD COUNT 4.09 MIL/MM3 (4.00-5.30); RED CELL DISTRIBUTION WIDTH 16.4 % (11.6-17.2); WHITE BLOOD COUNT 11.5 TH/MM3 (4.0-11.0)
[2016-05-19 09:53] LABS: HEMO FLAGS AUTO DIFF
[2016-05-19 10:04] LABS: BICARBONATE 31.9 MEQ/L (21.0-32.0); POTASSIUM 4.1 MEQ/L (3.5-5.1)
[2016-05-19 10:41] LABS: BANDS 2 % (0-6); BASOPHILS 1 % (0-2); EOSINOPHILS 2 % (0-4); METAMYELOCYTES 1 % (0-1); MYELOCYTES 2 % (0-0); NEUTROPHIL # MANUAL DIFF 9.3 TH/MM3 (1.8-7.7); PLATELET ESTIMATE SMEAR NORMAL (NORMAL); PLATELET MORPHOLOGY NORMAL (NORMAL); POLYS (SEG NEUTROPHILS) 76 % (16-70); SCAN/DIFF FINAL DIFF MANUAL; WBC DIFF SAMPLE 100
--- NOTE | 2016-05-19 10:46 | HHI.FPPN ---
Subjective Remarks No acute events overnight. Patient is currently maintaining saturations on 2-3 L nasal cannula. She states she's been able to get up and move about the room without becoming overly short of breath; however, after doing so she noted a couple desaturations on her own pulse ox. Review of EMR shows oxygen saturations greater than 90% over the past few days. She feels as though she is ready for discharge to home. She denies any chest pain, increased shortness of breath, or abdominal pain. (Deep Sauceda MD R3) Objective Vitals Vital Signs Date Time Temp Pulse Resp B/P Pulse Ox O2 Delivery O2 Flow Rate FiO2 05/19/16 08:00 97.2 76 20 136/79 100 05/19/16 04:23 98 35 05/19/16 04:00 96.6 77 16 108/69 100 05/19/16 00:33 98 35 05/19/16 00:11 99 BiPAP 35 05/18/16 23:00 96.9 82 17 108/65 95 05/18/16 22:15 Nasal Cannula 3.00 35 05/18/16 20:54 84 05/18/16 20:00 97.0 88 17 106/66 94 05/18/16 16:00 96.6 90 20 121/74 93 05/18/16 12:00 97.2 18 18 114/72 97 I/O 05/18/16 05/18/16 05/18/16 05/19/16 05/19/16 05/19/16 07:00 15:00 23:00 07:00 15:00 23:00 Intake Total 350 ml 960 ml 240 ml Balance 350 ml 960 ml 240 ml Intake Oral 350 ml 960 ml 240 ml IV Total 0 ml # Voids 2 2 2 # Bowel Movements 1 0 (Deep Sauceda MD R3) Result Diagram: 05/19/16 0830 05/19/16 0830 Objective Remarks GENERAL: well-nourished, well-developed, pt sitting up in chair on 2-3 L nasal cannula, speaking in complete sentences while at rest. SKIN: No rashes, ecchymoses or lesions. Cool and dry. HEENT: Atraumatic. Normocephalic. Extraocular motions intact. No scleral icterus. No injection or drainage. CARDIOVASCULAR: Regular rate and rhythm without murmurs, gallops, or rubs. RESPIRATORY: Clear to auscultation in upper lung be, mild crackles bilaterally at lung bases. No increased WOB or accessory muscle use. GASTROINTESTINAL: Abdomen soft, obese, nondistended, +bowel sounds. MUSCULOSKELETAL: Extremities without clubbing, cyanosis, lower extremity edema has improved. Mild tenderness with palpation of right hip. No calf tenderness. NEUROLOGICAL: Awake and alert. Motor and sensory grossly within normal limits. Normal speech. (Deep Sauceda MD R3) A/P Assessment and Plan Pt is a 50 year old female with history of COPD presenting due to COPD exacerbation and likely pneumonia. Discharge Planning Anticipate discharge to home today pending tolerating respiratory walk test on home O2. (Deep Sauceda MD R3) Attending Attestation Patient seen and examined with Dr. Sauceda. Case reviewed and discussed Agree with plan of care as discussed with me and documented in the resident note (Chely Pitts MD) Problem List: (1) COPD exacerbation Status: Acute Plan: Admitted for COPD exacerbation, likely due to respiratory infection. - Albuterol Q2 hrs PRN SOB - Pro air inhaler 2 puffs Q4hrs prn SOB - Concentrated albuterol nebulizer 2.5 mg Q4hrs rpn SOB - Azithromycin 500mg PO daily (05/11-05/19) to be continued for 5 days after discharge - Ceftin 500mg po BID, to be continued for 5 days after discharge - Rocephin 1 gram IV daily (05/11-05/17) - Montelukast 10mg PO HS - Oxygen supplementation as needed. - Tessalon 200mg po tid PRN for cough - Pulmonology consulted; recommendations appreciated - Pt to use CPAP at night to maintain O2 saturation above 90%. - Prednisone 10 mg PO tid - Symbicort 2 puffs q12hrs - Discussed discharge planning with Dr. Millan. Recommendations appreciated above Imaging: CXR 05/10: Patchy opacity at both lung bases, possibly suggestive of atelectasis vs early infiltrates CXR 05/14: Streaky opacity remains in both lungs. This is most consistent with chronic scarring and/or fibrosis. (2) Leg edema Status: Acute Plan: Improving. Continue bumetanide 1 mg by mouth daily Continue metolazone 5 mg by mouth every other day YEVGENIY stockings (3) DM (diabetes mellitus) Status: Chronic Plan: Home medications include Levemir 40 units BID and NovoLog 30 units with each meal. Hemoglobin A1c 9.5 from 05/02/16. Bedside glucose has remained significantly elevated since admission. Of note, she is on high-dose steroids as above and likely has infection. - Levemir to 40 units BID - NovoLog 20 units TIDAC - If patient is not discharged to home today, recommend increasing NovoLog back to home dose of 30 units TIDAC - Continue low dose SS. - Continue gabapentin tid for neuropathic pain (4) CKD (chronic kidney disease) stage 3, GFR 30-59 ml/min Status: Acute Plan: Baseline creatinine around 1.5. Creatinine today was 1.52, decreased from 2.06 on admission. Patient had CT-guided needle biopsy of right kidney on 08/01/15. 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 Interstitial fibrosis and tubular atrophy, severe. Arteriosclerosis, severe. - Monitor Is and Os - Monitor daily BMP - Consider consulting nephrology for renal function (5) Fall Status: Acute Plan: Pt reported recent fall, and persistent right sided hip pain. She attributed fall to lower extremity weakness and feeling lightheaded. Right hip XR showed no evidence of fracture. -Pt to be discharged to home with home health PT (6) Essential hypertension Status: Chronic Plan: Currently well controlled. - Currently holding Amlodipine, consider restarting if BP increases (7) Anemia Status: Chronic Plan: Continue home Ferrous sulfate (8) FEN/PPX Status: Acute Plan: Fluids: None Electrolytes: continue to monitor Nutrition: Diabetic Diet DVT PPX: Heparin GI PPX: Protonix (Home medication) (Deep Sauceda MD R3) Deep Sauceda MD R3 May 19, 2016 10:46 Chely Pitts MD May 22, 2016 13:12
[2016-05-31] MEDS ORDERED: INSU1MIS SQ (12:32)
[2016-06-18] MEDS ORDERED: BENZ100 PO (09:57)
--- NOTE | 2016-07-09 06:13 | HHI.DS ---
Discharge Summary Admission Date May 10, 2016 at 14:14 Discharge Date: Jul 16, 2016 Admitting Diagnosis COPD exacerbation, suspected pneumonia, hypoxemia (1) COPD exacerbation Diagnosis: Principal Plan: Admitted for COPD exacerbation, likely due to respiratory infection. - Albuterol Q2 hrs PRN SOB - Pro air inhaler 2 puffs Q4hrs prn SOB - Concentrated albuterol nebulizer 2.5 mg Q4hrs rpn SOB - Azithromycin 500mg PO daily (05/11-05/19) to be continued for 5 days after discharge - Ceftin 500mg po BID, to be continued for 5 days after discharge - Rocephin 1 gram IV daily (05/11-05/17) - Montelukast 10mg PO HS - Oxygen supplementation as needed. - Tessalon 200mg po tid PRN for cough - Pulmonology consulted; recommendations appreciated - Pt to use CPAP at night to maintain O2 saturation above 90%. - Prednisone 10 mg PO tid - Symbicort 2 puffs q12hrs - Discussed discharge planning with Dr. Millan. Recommendations appreciated above Imaging: CXR 05/10: Patchy opacity at both lung bases, possibly suggestive of atelectasis vs early infiltrates CXR 05/14: Streaky opacity remains in both lungs. This is most consistent with chronic scarring and/or fibrosis. (2) Leg edema Diagnosis: Secondary Plan: Improving. Continue bumetanide 1 mg by mouth daily Continue metolazone 5 mg by mouth every other day YEVGENIY stockings (3) DM (diabetes mellitus) Diagnosis: Secondary Plan: Home medications include Levemir 40 units BID and NovoLog 30 units with each meal. Hemoglobin A1c 9.5 from 05/02/16. Bedside glucose has remained significantly elevated since admission. Of note, she is on high-dose steroids as above and likely has infection. - Levemir to 40 units BID - NovoLog 20 units TIDAC - If patient is not discharged to home today, recommend increasing NovoLog back to home dose of 30 units TIDAC - Continue low dose SSI. - Continue gabapentin tid for neuropathic pain (4) CKD (chronic kidney disease) stage 3, GFR 30-59 ml/min Diagnosis: Secondary Plan: Baseline creatinine around 1.5. Creatinine today was 1.52, decreased from 2.06 on admission. Patient had CT-guided needle biopsy of right kidney on 08/01/15. 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 Interstitial fibrosis and tubular atrophy, severe. Arteriosclerosis, severe. - Monitor Is and Os - Monitor daily BMP - Consider consulting nephrology for renal function (5) Fall Diagnosis: Secondary Plan: Pt reported recent fall, and persistent right sided hip pain. She attributed fall to lower extremity weakness and feeling lightheaded. Right hip XR showed no evidence of fracture. -Pt to be discharged to home with home health PT (6) Essential hypertension Diagnosis: Secondary Plan: Currently well controlled. - Currently holding Amlodipine, consider restarting if BP increases (7) Anemia Diagnosis: Secondary Plan: Continue home Ferrous sulfate (8) FEN/PPX Diagnosis: Secondary Plan: Fluids: None Electrolytes: continue to monitor Nutrition: Diabetic Diet DVT PPX: Heparin GI PPX: Protonix (Home medication) Consultants Pulmonology Brief History 50 yo F presenting to the ED with COPD exacerbation and pneumonia. She reports progressive shortness of breath over the last 2 weeks. She then had sudden worsening of her shortness of breath this morning and required an increase in her home oxygen from 2-4 L after she checked her pulse ox and it was 82%. She also has had 2 weeks of coughing that is intermittently productive of thick, clear sputum. She also has had significant fatigue and weakness in her legs, with a fall 2 weeks ago with resulting pain in her right hip causing her pain with weight bearing. Denies fevers, endorses chills. She notes that she has been experiencing mild bowel incontinence over the past 2 days while coughing. Denies black or bloody stools. She also experiences urinary incontinence which is baseline for her. She experiences chest pain below her ribs with coughing and movement. She does not recall if this is similar to prior COPD exacerbations as it has been so long since her last exacerbation. Imaging Imaging: CXR 05/10: Patchy opacity at both lung bases, possibly suggestive of atelectasis vs early infiltrates CXR 05/14: Streaky opacity remains in both lungs. This is most consistent with chronic scarring and/or fibrosis. Last Impressions Chest X-Ray 05/14/16 0900 Signed Impressions: Service Date/Time: Saturday, May 14, 2016 09:19 - CONCLUSION: Streaky opacity remains in both lungs. This is most consistent with chronic scarring and/or fibrosis. Hugo Frank MD Hip and Pelvis X-Ray 05/10/16 0000 Signed Impressions: Service Date/Time: May 15:07 - CONCLUSION: 1. The right hip is intact with mild degenerative change and no acute fracture or malalignment. 2. Oderate degenerative change in the left hip. Hugo Frank MD PE at Discharge GENERAL: well-nourished, well-developed, pt sitting up in chair on 2-3 L nasal cannula, speaking in complete sentences while at rest. SKIN: No rashes, ecchymoses or lesions. Cool and dry. HEENT: Atraumatic. Normocephalic. Extraocular motions intact. No scleral icterus. No injection or drainage. CARDIOVASCULAR: Regular rate and rhythm without murmurs, gallops, or rubs. RESPIRATORY: Clear to auscultation in upper lung be, mild crackles bilaterally at lung bases. No increased WOB or accessory muscle use. GASTROINTESTINAL: Abdomen soft, obese, nondistended, +bowel sounds. MUSCULOSKELETAL: Extremities without clubbing, cyanosis, lower extremity edema has improved. Mild tenderness with palpation of right hip. No calf tenderness. NEUROLOGICAL: Awake and alert. Motor and sensory grossly within normal limits. Normal speech. Hospital Course Pt was admitted for COPD exacerbation and pneumonia. She was treated with breathing treatments, antibiotics (Rocephin and Azithromycin while inpatient and then discharged on Ceftin and Azithro as outpatient), cough medications, supplemental oxygen, steroids, and her home medications. Pulmonology was consulted because patient had a prolonged hospital course, but she continued to improve until discharge home. Pt Condition on Discharge: Good Discharge Disposition: Discharge Home Discharge Instructions DIET: Follow Instructions for: Diabetic Diet Activities you can perform: Regular-No Restrictions Other Activity Instructions: Try not to exert yourself to the point of having a coughing fit. Follow up Referrals: Physician - 1 Week with Dao Engle MD R2 Pulmonology with Jonas Mcdaniel MD New Medications: Budesonide-Formoterol Inh (Symbicort Inh) 160-4.5 Mcg/Act Aero 2 PUFF INH Q12HR #1 INHALER Continued Medications: Albuterol 18 GM Inh (Ventolin Hfa 18 GM Inh) 90 Mcg/Act Aer 2 PUFF INH Q4H PRN SHORTNESS OF BREATH #1 Ref 0 INHALER Albuterol Neb (Albuterol Neb) 2.5 Mg/0.5 Ml Neb 2.5 MG NEB Q4HR NEB Note: The Albuterol Sulfate Inhalation Solution is concentrated and must be diluted. Read complete instructions carefully before using. PRN SHORTNESS OF BREATH EA Ferrous Sulfate (Ferrous Sulfate) 325 Mg Tab 325 MG PO BID Nutritional Supplement #60 Ref 0 TAB Gabapentin (Gabapentin) 800 Mg Tab 800 MG PO BID #90 Ref 0 TAB Insulin Aspart Inj (Novolog Inj) 1,000 Unit/10 Ml Vial 0 SQ DIRECTED Sliding Scale as directed. Blood Sugar Management #10 Ref 0 ML Insulin Aspart Inj (Novolog Inj) 1,000 Unit/10 Ml Vial 20 UNITS SQ TIDAC Blood Sugar Management #10 Ref 0 ML Insulin Detemir Inj (Levemir Inj) 1,000 unit/ 10 ML Vial 40 UNITS SQ BID Do not mix with any other Insulin. Blood Sugar Management Ref 0 VIAL Metolazone (Metolazone) 5 Mg Tab 5 MG PO DAILY #30 Ref 0 TAB Montelukast (Singulair) 10 Mg Tab 10 MG PO HS #30 Ref 0 TAB Multiple Vitamins W/ Minerals (Multivitamin Adults) 1 Tab 1 TAB PO DAILY Nutritional Supplement Ref 0 TAB Pantoprazole (Protonix) 40 Mg Tab 40 MG PO DAILY Reflux #30 Ref 0 TAB Discontinued Medications: Prednisone (Prednisone) 10 Mg Tab 10 MG PO DAILY #30 Ref 1 TAB Hugo Aguillon MD R1 Jul 09, 2016 06:13
[2016-07-18] MEDS ORDERED: IPRASOL INH (10:18)
[2016-07-18] MEDS ORDERED: FERR325T PO (10:19)
[2016-07-24] MEDS ORDERED: IPRASOL INH (09:39)
[2016-08-08] MEDS ORDERED: METO5TAB3 PO (08:50)
[2016-08-08] MEDS ORDERED: OXYGENTANK NAS.CANULA (09:03)
[2016-08-17] MEDS ORDERED: BENZ100 PO (08:37)
[2016-09-12] MEDS ORDERED: LEVEMIR SQ (17:14)
[2016-09-12] MEDS ORDERED: NOVOLOGSS SQ (17:14)
[2016-09-12] MEDS ORDERED: ALBU0.08 NEB (18:01)
[2016-09-12] MEDS ORDERED: IPRASOL INH (18:01)
[2016-09-12] MEDS ORDERED: PRED20 PO (18:01)
[2016-09-12] MEDS ORDERED: LANCMIS SQ (18:10)
[2016-09-17] MEDS ORDERED: LANC1MIS74 (14:59)
[2016-09-19] MEDS ORDERED: MONT10TA2 PO (23:24)
[2016-09-19] MEDS ORDERED: BUME1TAB PO (23:29)
[2016-09-19] MEDS ORDERED: GABA800T PO (23:30)
[2016-09-25] MEDS ORDERED: AMLO5 PO (15:53)
== END 2016-05-19 17:50 | disposition home or self-care (01) | DRG 190 ==
LOC: NEPC 10:54 → NEDA 13:36 → OBSVTOIN 14:14 → NEDH 19:20 → HCIS 05-11 01:07 → HOCA 05-15 20:28
PROVIDERS: ADMIT Family Medicine; ATTEND Family Medicine
DX: J44.0 Chronic obstructive pulmonary disease with (acute) lower respiratory infection (principal); J18.9 Pneumonia, unspecified organism; E11.22 Type 2 diabetes mellitus with diabetic chronic kidney disease; E11.40 Type 2 diabetes mellitus with diabetic neuropathy, unspecified; N18.3 Chronic kidney disease, stage 3 (moderate); Z99.81 Dependence on supplemental oxygen; E11.65 Type 2 diabetes mellitus with hyperglycemia; J44.1 Chronic obstructive pulmonary disease with (acute) exacerbation; E87.6 Hypokalemia; G47.33 Obstructive sleep apnea (adult) (pediatric); E78.5 Hyperlipidemia, unspecified; I12.9 Hypertensive chronic kidney disease with stage 1 through stage 4 chronic kidney disease, or unspecified chronic kidney disease; K21.9 Gastro-esophageal reflux disease without esophagitis; F41.9 Anxiety disorder, unspecified; D64.9 Anemia, unspecified; M25.551 Pain in right hip; W19.XXXA Unspecified fall, initial encounter; Z79.4 Long term (current) use of insulin; Y92.9 Unspecified place or not applicable; Z87.891 Personal history of nicotine dependence
CPT/HCPCS: 36600; 71010; 71020; 73502; 76937; 80048; 80053; 82805; 82948; 83605; 83735; 83880; 84155; 85007; 85025; 85027; 94003; 94150; 94620; 94640; 94664; 94667; 94668; 96374; J0456; J0696; J1644; J1815; J2930; J7040; J7050; J7512; J7613

== ENCOUNTER 2016-07-07 16:42 | Inpatient (IN) | payer MEDICAID ==
[2016-07-07] VITALS (8 sets, daily range): BP systolic 89–114; BP diastolic 55–70; PULSE 93–106; RESP 16–36; TEMP 98.3; O2SAT 64–99
[~2016-07-07] VITALS: Ht 172.7 cm; Wt 112.0 kg
[~2016-07-07 16:42] MED LIST changes: +BENZ100 PO; +CEFT500T3 PO; +INSU1MIS SQ; +SYMB160A INH; -ULTR50TA5 PO; +ZITH250T PO
--- NOTE | 2016-07-07 16:57 | PD ---
HPI Chief Complaint: Respiratory Symptoms Time Seen by Provider: 16:57 Travel History International Travel<30 days: No Contact w/Intl Traveler<30days: No Traveled to known affect area: No History of Present Illness HPI 50-year-old female came to the emergency room with history of shortness of breath that's progressively worsening over past 4 weeks. Patient says that last when she was admitted for pneumonia. Patient says that for past 3 days she has really been worse. She requires 3-4 L of oxygen at home due to her COPD. However for past 3 days she has been requiring higher amount especially whenever she does slightest exertion. Today her oxygen saturation was down in the 70s with a home pulse ox machine. She was short of breath and her daughter decided to bring her to the emergency room. No history of fever or chills. In triage patient's oxygen saturation was in the 60s. She seemed lethargic. As soon as she was put on nonrebreather slowly in 5 minutes she started to become more wakeful and oxygen saturation went up to 100%. No history of chest pain. She was afebrile. She was hypotensive in triage. [facility] Past Medical History Narrative Medical List of her past medical, surgical, social and family history was reviewed from the nursing note. Hx Anticoagulant Therapy: Yes (ASPIRIN ) Anemia: Yes Arthritis: Yes (Legs) Asthma: Yes Autoimmune Disease: No Anxiety: Yes Depression: No Heart Rhythm Problems: No Cancer: No Cardiovascular Problems: Yes High Cholesterol: No Chemotherapy: No Chest Pain: No Congestive Heart Failure: No COPD: Yes Cerebrovascular Accident: No Coronary Artery Disease: No Diabetes: Yes Patient Takes Glucophage: No Diminished Hearing: No Endocrine: Yes ( ) Gastrointestinal Disorders: Yes GERD: Yes Glaucoma: No Genitourinary: No Headaches: Yes Hepatitis: No Hiatal Hernia: No Hypertension: Yes Immune Disorder: Yes (Lupus) Implanted Vascular Access Dvce: Yes Kidney Stones: No Musculoskeletal: Yes Neurologic: No Psychiatric: Yes Reproductive: No Respiratory: Yes (COPD) Immunizations Current: No Migraines: Yes ( ) Radiation Therapy: No Renal Failure: No Seizures: No Sickle Cell Disease: No Sleep Apnea: Yes Thyroid Disease: No Ulcer: No Tetanus Vaccination: < 5 Years ?: Not Menopausal: Yes : 3 Para: 1 Miscarriage: 2 Past Surgical History Abdominal Surgery: No AICD: No Arteriovenous Shunt: No Body Medical Devices: right ankle screws and plates Cardiac Surgery: No Ear Surgery: No Endocrine Surgery: No Eye Surgery: No Genitourinary Surgery: Yes (KIDNEY BIOPSY ) Gynecologic Surgery: Yes (ABLATION) Hysterectomy: Yes Insulin Pump: No Joint Replacement: No Neurologic Surgery: No Oral Surgery: No Pacemaker: No Thoracic Surgery: No Other Surgery: Yes (Ankle Surgery) Social History Alcohol Use: No Tobacco Use: No (quit 10 years, smoked 1 ppd) Substance Use: No Allergies-Medications (Allergen,Severity, Reaction): Coded Allergies: *MDRO Multi-Drug Resistant Organism (Verified Adverse Reaction, Unknown, ) 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 Pt does not require isolation for hx of MDRO prior to 05/11/15* Comments List of her allergies reviewed from the nursing note. Reported Meds & Prescriptions Reported Meds & Active Scripts Active Tessalon Perles (Benzonatate) 100 Mg Cap 200 Mg PO TID PRN Symbicort Inh (Budesonide/Formoterol Fumarate) 160-4.5 Mcg/Act Aero 2 Puff INH Q12HR Reported Prednisone 10 Mg Tab 10 Mg PO DAILY Chlorhexidine Gluconate (Mouth) Liq (Chlorhexidine Gluconate) 0.12% Soln Unknown Dose SWISH-SPIT BID Amoxicillin 500 Mg Cap 500 Mg PO Q6HR Aspirin 81 Mg Tabdr 81 Mg PO DAILY Bumex (Bumetanide) 2 Mg Tab 2 Mg PO BID Metolazone 5 Mg Tab 5 Mg PO DAILY Ferrous Sulfate 325 Mg Tab 325 Mg PO BID Ventolin Hfa 18 GM Inh (Albuterol Sulfate) 90 Mcg/Act Aer 2 Puff INH Q4H PRN Singulair (Montelukast Sodium) 10 Mg Tab 10 Mg PO HS Albuterol Neb (Albuterol Sulfate) 2.5 Mg/0.5 Ml Neb 2.5 Mg NEB Q4HR NEB PRN Note: The Albuterol Sulfate Inhalation Solution is concentrated and must be diluted. Read complete instructions carefully before using. Protonix (Pantoprazole Sodium) 40 Mg Tab 40 Mg PO DAILY Novolog Inj (Insulin Aspart) 1,000 Unit/10 Ml Vial 20 Units SQ TIDAC Novolog Inj (Insulin Aspart) 1,000 Unit/10 Ml Vial 0 SQ DIRECTED Sliding Scale as directed. Multivitamin Adults (Multiple Vitamins W/ Minerals) 1 Tab 1 Tab PO DAILY Levemir Inj (Insulin Detemir) 1,000 unit/ 10 ML Vial 40 Units SQ BID Do not mix with any other Insulin. Gabapentin 800 Mg Tab 800 Mg PO BID Narrative Medication List of her home medications reviewed from the nursing note. Review of Systems Except as stated in HPI: all other systems reviewed are Neg Physical Exam Narrative GENERAL: Lethargic, morbidly obese, moderate distress SKIN: Focused skin assessment warm/dry. HEAD: Atraumatic. Normocephalic. EYES: Pupils equal and round. No scleral icterus. No injection or drainage. ENT: No nasal bleeding or discharge. Mucous membranes pink and moist. NECK: Trachea midline. No JVD. CARDIOVASCULAR: Regular rate and rhythm. No murmur appreciated. RESPIRATORY: No accessory muscle use. Clear to auscultation. Breath sounds equal bilaterally. GASTROINTESTINAL: Abdomen soft, non-tender, nondistended. Hepatic and splenic margins not palpable. MUSCULOSKELETAL: No obvious deformities. No clubbing. No cyanosis. Bilateral 2 + pitting edema. NEUROLOGICAL: Awake and alert. No obvious cranial nerve deficits. Motor grossly within normal limits. Normal speech. PSYCHIATRIC: Appropriate mood and affect; insight and judgment normal. Data Data Last Documented VS Vital Signs Date Time Temp Pulse Resp B/P Pulse Ox O2 Delivery O2 Flow Rate FiO2 07/07/16 18:08 98 17 106/66 92 Nasal Cannula 5 07/07/16 17:10 50 07/07/16 16:45 98.3 Orders Complete Blood Count With Diff (07/07/16 16:57) Basic Metabolic Panel (Bmp) (07/07/16 16:57) B-Type Natriuretic Peptide (07/07/16 16:57) Prothrombin Time / Inr (Pt) (07/07/16 16:57) Troponin I (07/07/16 16:57) Urinalysis - C+S If Indicated (07/07/16 16:57) Blood Culture (07/07/16 16:57) Iv Access Insert/Monitor (07/07/16 16:57) Electrocardiogram (07/07/16 16:57) Ecg Monitoring (07/07/16 16:57) Oximetry (07/07/16 16:57) Oxygen Administration (07/07/16 16:57) Chest, Single Ap (07/07/16 16:57) Sodium Chloride 0.9% Flush (Ns Flush) (07/07/16 17:00) Albuterol-Ipratropium Neb (Duoneb Neb) (07/07/16 17:00) Arterial Blood Gas (Abg) (07/07/16 ) Furosemide Inj (Lasix Inj) (07/07/16 18:00) Urinary Catheter Insert/Apply (07/07/16 17:59) Piperacil-Tazo 4.5 Gm Premix (Zosyn 4.5 (07/07/16 18:15) Vancomycin Inj (Vancomycin Inj) (07/07/16 18:15) Admit Order (Ed Use Only) (07/07/16 19:22) Labs Laboratory Tests Test 07/07/16 07/07/16 16:54 17:10 Blood Gas Puncture Site LT RADIAL Blood Gas Patient Temperature 98.6 Blood Gas HCO3 29 mmol/L Blood Gas Base Excess 5.8 mmol/L Blood Gas Oxygen Saturation 97 % Arterial Blood pH 7.49 Arterial Blood Partial 39 mmHg Pressure CO2 Arterial Blood Partial 279 mmHG Pressure O2 Arterial Blood Oxygen Content 15.6 Vol % Arterial Blood 0.5 % Carboxyhemoglobin Arterial Blood Methemoglobin 0.0 % Blood Gas Hemoglobin 10.9 G/DL Oxygen Delivery Device Non-Rebreathing Mask Blood Gas Liter Flow 15 L/M White Blood Count 15.3 TH/MM3 Red Blood Count 3.79 MIL/MM3 Hemoglobin 10.6 GM/DL Hematocrit 32.5 % Mean Corpuscular Volume 85.8 FL Mean Corpuscular Hemoglobin 28.0 PG Mean Corpuscular Hemoglobin 32.6 % Concent Red Cell Distribution Width 16.5 % Platelet Count 316 TH/MM3 Mean Platelet Volume 7.8 FL Neutrophils (%) (Auto) 82.6 % Lymphocytes (%) (Auto) 8.5 % Monocytes (%) (Auto) 7.8 % Eosinophils (%) (Auto) 0.5 % Basophils (%) (Auto) 0.6 % Neutrophils # (Auto) 12.6 TH/MM3 Lymphocytes # (Auto) 1.3 TH/MM3 Monocytes # (Auto) 1.2 TH/MM3 Eosinophils # (Auto) 0.1 TH/MM3 Basophils # (Auto) 0.1 TH/MM3 CBC Comment DIFF FINAL Differential Comment Prothrombin Time 11.1 SEC Prothromb Time International 1.0 RATIO Ratio Sodium Level 136 MEQ/L Potassium Level 3.4 MEQ/L Chloride Level 93 MEQ/L Carbon Dioxide Level 29.3 MEQ/L Anion Gap 14 MEQ/L Blood Urea Nitrogen 62 MG/DL Creatinine 3.44 MG/DL Estimat Glomerular Filtration 17 ML/MIN Rate Random Glucose 299 MG/DL Calcium Level 7.7 MG/DL Troponin I LESS THAN 0.02 NG/ML B-Type Natriuretic Peptide 262 PG/ML MDM Medical Decision Making Medical Screen Exam Complete: Yes Emergency Medical Condition: Yes Medical Record Reviewed: Yes Interpretation(s) Twelve-lead EKG was reviewed by me. Normal sinus rhythm, normal axis, motion artifacts. Heart rate of 98 bpm. Differential Diagnosis Pneumonia, pleural effusion, PE, pulmonary edema, COPD exacerbation Narrative Course 6:05 PM patient does have history of COPD and she was given 2- bronchodilator nebulizers. Blood gas was done on nonrebreather at 15 L of oxygen. Pulse ox seemed within acceptable limits. Chest x-ray came back as pulmonary edema. I have ordered 60 mg of IV Lasix. Awaiting for blood test results come back. Respiratory therapist is slowly trying to wean her to lower level of oxygen. Patient will require admission at this point. White count is elevated. It could be stress related. However given her presentation and recent diagnosis and treatment of pneumonia in hospital I would like to cover her with broad- spectrum antibiotics for possible hospital-acquired pneumonia. Awaiting for the chemistry to come back. Critical Care Narrative Aggregate critical care time was 60 minutes. Time to perform other separately billable procedures was not included in the critical care time. My time did not include minutes spent treating any other patients simultaneously or on activities that did not directly contribute to the patient's treatment. The services I provided to this patient were to treat and/or prevent clinically significant deterioration that could result in: Respiratory distress, hypoxia, pulmonary edema, pneumonia I provided critical care services requiring my management, as noted below: Chart data review, documentation time, medication orders and management, vital sign assessments/reviewing monitor data, ordering and reviewing lab tests, ordering and interpreting/reviewing x-rays and diagnostic studies, care of the patient and discussion of the patient with the admitting physicians. Procedures EKG Prior to Arrival: No Physician Communication Physician Communication Dr. Rodríguez Diagnosis Primary Impression: Respiratory distress Additional Impressions: Hypoxia Pulmonary edema Qualified Code: J81.0 - Acute pulmonary edema Pneumonia Qualified Code: J18.9 - Pneumonia of both lungs due to infectious organism, unspecified part of lung Renal failure Admitting Information Admitting Physician Requests: Admit Dalia Coreas MD Jul 07, 2016 16:57
[2016-07-07] MEDS ORDERED: SODIUM CHLORIDE 0.9% FLUSH 10 ML FLUSH IVF PRN (17:00)
[2016-07-07] MEDS: RESP: ALBUTEROL 2.5 MG/IPRATROPIUM 0.5 MG NEB (SCH) INH (17:09)
[2016-07-07 17:30] LABS: BLOOD GAS BASE EXCESS 5.8 mmol/L (-2-2); BLOOD GAS CARBOXYHEMOGLOBIN 0.5 % (0-4); BLOOD GAS HCO3 29 mmol/L (22-26); BLOOD GAS O2 HGB SATURATION 97 % (90-100); BLOOD GAS OXYGEN CONTENT 15.6 Vol % (12.0-20.0); BLOOD GAS PCO2 39 mmHg (38-42); BLOOD GAS PO2 279 mmHG (61-120); BLOOD GAS TOTAL HGB 10.9 G/DL (12.0-16.0); CRITICAL VALUE NO; LITER FLOW 15 L/M; TEMP CORR TO 98.6
[2016-07-07 17:31] LABS: DRAW SITE LT RADIAL; NUMBER OF ARTERIAL PUNCTURES 1; STAT YES; ULNAR PULSE PRESENT
[2016-07-07] MEDS ORDERED: BUME1TAB28 PO (17:41)
[2016-07-07] MEDS ORDERED: AMOX500C PO (17:49)
[2016-07-07] MEDS ORDERED: ASPI1TAB69 PO (17:49)
[2016-07-07] MEDS ORDERED: PRED10 PO (17:49)
[2016-07-07] MEDS ORDERED: CHLO.12%30 SWISH-SPIT (17:49)
--- NOTE | 2016-07-07 17:55 | RADRPT ---
EXAM DATE/TIME: 07/07/2016 17:22 [facility] COMPARISON: CHEST PA & LAT, May 14, 2016, 9:19. CHEST SINGLE AP, May 10, 2016, 11:16. INDICATIONS : Short of Breath MEDICAL HISTORY : Hypertension. Chronic obstructive pulmonary disease. Diabetes mellitus type 2 SURGICAL HISTORY : None. ENCOUNTER: Initial ACUITY: 1 day PAIN SCORE: 0/10 LOCATION: Bilateral chest FINDINGS: A single view of the chest demonstrates some increased residual marking and prominence of pulmonary v asculature suggestive of pulmonary venous congestion versus early edema. No focal parenchymal infiltr ates are seen. Heart size is upper limits of normal but stable compared to the prior study. No signif icant pleural effusions.. CONCLUSION: Pulmonary venous congestion versus early edema. Roberto Garcia MD on July 07, 2016 at 17:52 Board Certified Radiologist. This report was verified electronically.
[2016-07-07 17:58] LABS: AUTOMATED NEUTROPHIL # 12.6 TH/MM3 (1.8-7.7); BASOPHIL # 0.1 TH/MM3 (0-0.2); BASOPHIL % 0.6 % (0.0-2.0); EOSINOPHIL # 0.1 TH/MM3 (0-0.4); EOSINOPHIL % 0.5 % (0.0-4.0); HEMATOCRIT 32.5 % (35.0-46.0); HEMO FLAGS DIFF FINAL; LYMPH % 8.5 % (9.0-44.0); LYMPHOCYTE # 1.3 TH/MM3 (1.0-4.8); MEAN CELL VOLUME 85.8 FL (80.0-100.0); MEAN CORPUSCULAR HGB CONC 32.6 % (32.0-36.0); MONO % 7.8 % (0.0-8.0); NEUT % 82.6 % (16.0-70.0); PLATELET COUNT 316 TH/MM3 (150-450); RED BLOOD COUNT 3.79 MIL/MM3 (4.00-5.30); RED CELL DISTRIBUTION WIDTH 16.5 % (11.6-17.2); WHITE BLOOD COUNT 15.3 TH/MM3 (4.0-11.0)
[2016-07-07] MEDS ORDERED: FUROSEMIDE 20 MG/2 ML VIAL IV PUSH ONE (18:00)
[2016-07-07 18:03] LABS: PROTHROMBIN TIME - PATIENT 11.1 SEC (9.8-11.6)
[2016-07-07] MEDS ORDERED: VANCOMYCIN INJ 1,000 MG in SODIUM CHLOR 0.9% 250 ML INJ 250 ML IV ONE (18:15)
[2016-07-07] MEDS ORDERED: PIPERACIL-TAZO 4.5 GM PREMIX 100 ML IV ONE (18:15)
[2016-07-07 18:19] LABS: ANION GAP 14 MEQ/L (5-15); BICARBONATE 29.3 MEQ/L (21.0-32.0); BLOOD UREA NITROGEN 62 MG/DL (7-18); CHLORIDE 93 MEQ/L (98-107); GLOMERULAR FILTRATION RATE 17 ML/MIN (>89); POTASSIUM 3.4 MEQ/L (3.5-5.1); SODIUM (NA) 136 MEQ/L (136-145)
--- NOTE | 2016-07-07 19:36 | HHI.HP ---
[facility] Service Family Medicine Primary Care Physician Dao Engle MD Admission Diagnosis pulmonary edema, renal failure, hospital-acquired pneumonia Diagnoses: International Travel<30 Days: No Contact w/Intl Traveler<30days: No Known Affected Area: No History of Present Illness Patient is a 50-year-old female with past medical history significant for COPD, diabetes, COPD, lupus presenting due to COPD exacerbation. Patient reports that she has been feeling progressively short of breath over the past 3 days. She was last discharged from the hospital in May after being admitted for a COPD exacerbation. After she completed prescribed steroids she has had worsening shortness of breath. She has had to increase her home oxygen level. She is concerned that her home oxygen tank and CPAP machine may not be working properly. Patient was at a earlier today with her daughter and her daughter noticed that she was having difficulty breathing and insisted on bringing her into the ED. Patient's oxygen saturation has been as low as the mid 70s when she was at home. She has been more fatigued recently. She denies any recent illness. She has also not been able to see her insurance defense attorney, Dr. Mcdaniel, due to his office no longer accepting her insurance. (Suzy Clark MD R2) Review of Systems Constitutional: COMPLAINS OF: Chills, DENIES: Fever Eyes: DENIES: Vision loss Ears, nose, mouth, throat: DENIES: Hearing loss Respiratory: COMPLAINS OF: Shortness of breath Cardiovascular: COMPLAINS OF: Chest pain, Dyspnea on Exertion, Lower Extremity Edema Gastrointestinal: DENIES: Abdominal pain, Black stools, Bloody stools, Constipation, Diarrhea Genitourinary: COMPLAINS OF: Urinary incontinence Integumentary: DENIES: Rash Neurologic: COMPLAINS OF: Tremor Psychiatric: DENIES: Mood changes (Suzy Clark MD R2) Past Family Social History Past Medical History COPD ?Sarcoidosis DM Lupus Past Surgical History Right ankle surgery Reported Medications Reported Meds & Active Scripts Active Tessalon Perles (Benzonatate) 100 Mg Cap 200 Mg PO TID PRN Symbicort Inh (Budesonide/Formoterol Fumarate) 160-4.5 Mcg/Act Aero 2 Puff INH Q12HR Reported Prednisone 10 Mg Tab 10 Mg PO DAILY Chlorhexidine Gluconate (Mouth) Liq (Chlorhexidine Gluconate) 0.12% Soln Unknown Dose SWISH-SPIT BID Amoxicillin 500 Mg Cap 500 Mg PO Q6HR Aspirin 81 Mg Tabdr 81 Mg PO DAILY Bumex (Bumetanide) 2 Mg Tab 2 Mg PO BID Metolazone 5 Mg Tab 5 Mg PO DAILY Ferrous Sulfate 325 Mg Tab 325 Mg PO BID Ventolin Hfa 18 GM Inh (Albuterol Sulfate) 90 Mcg/Act Aer 2 Puff INH Q4H PRN Singulair (Montelukast Sodium) 10 Mg Tab 10 Mg PO HS Albuterol Neb (Albuterol Sulfate) 2.5 Mg/0.5 Ml Neb 2.5 Mg NEB Q4HR NEB PRN Note: The Albuterol Sulfate Inhalation Solution is concentrated and must be diluted. Read complete instructions carefully before using. Protonix (Pantoprazole Sodium) 40 Mg Tab 40 Mg PO DAILY Novolog Inj (Insulin Aspart) 1,000 Unit/10 Ml Vial 20 Units SQ TIDAC Novolog Inj (Insulin Aspart) 1,000 Unit/10 Ml Vial 0 SQ DIRECTED Sliding Scale as directed. Multivitamin Adults (Multiple Vitamins W/ Minerals) 1 Tab 1 Tab PO DAILY Levemir Inj (Insulin Detemir) 1,000 unit/ 10 ML Vial 40 Units SQ BID Do not mix with any other Insulin. Gabapentin 800 Mg Tab 800 Mg PO BID (Suzy Clark MD R2) Allergies: Coded Allergies: *MDRO Multi-Drug Resistant Organism (Verified Adverse Reaction, Unknown, ) 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 Pt does not require isolation for hx of MDRO prior to 05/11/15* Family History Mother: Lupus Father: DM, HTN, CKD, Visually impaired Social History Pt is not working, disabled due to chronic medical problems. Denies smoking, drinking, illicit drug use. (Suzy Clakr MD R2) Physical Exam Vital Signs Vital Signs Date Time Temp Pulse Resp B/P Pulse Ox O2 Delivery O2 Flow Rate FiO2 07/07/16 18:08 98 17 106/66 92 Nasal Cannula 5 07/07/16 17:53 94 Nasal Cannula 5.00 07/07/16 17:32 24 95 Aerosol Mask 07/07/16 17:32 95 Aerosol Mask 07/07/16 17:10 99 Venturi Mask 6.00 50 07/07/16 17:00 96 29 113/55 96 Aerosol Mask 100 07/07/16 16:48 103 24 79 07/07/16 16:45 98.3 106 36 89/55 64 Nasal Cannula Physical Exam GENERAL: This is a well-nourished, well-developed patient, in no acute respiratory distress. SKIN: No rashes, ecchymoses or lesions. Cool and dry. HEAD: Atraumatic. Normocephalic. No temporal or scalp tenderness. EYES: Pupils equal round and reactive. Extraocular motions intact. No scleral icterus. No injection or drainage. ENT: Nose without bleeding, purulent drainage or septal hematoma. Throat without erythema, tonsillar hypertrophy or exudate. Uvula midline. Airway patent. NECK: Trachea midline. No JVD or lymphadenopathy. Supple, nontender, no meningeal signs. CARDIOVASCULAR: Regular rate and rhythm without murmurs, gallops, or rubs. RESPIRATORY: Diffuse crackles, more pronounced in lower lung be. Normal work of breathing. NC 5L, O2 saturation high 80s-low90s during exam. GASTROINTESTINAL: Abdomen soft, non-tender, nondistended. No hepato-splenomegaly , or palpable masses. No guarding. MUSCULOSKELETAL: 1+ pitting edema of bilateral lower extremities to mid calf. Extremities without clubbing, cyanosis, or edema. No joint tenderness, effusion , or edema noted. NEUROLOGICAL: Awake and alert. Cranial nerves II through XII intact. Motor and sensory grossly within normal limits. Normal speech. Laboratory Laboratory Tests Test 07/07/16 07/07/16 16:54 17:10 Blood Gas Puncture Site LT RADIAL Blood Gas Patient Temperature 98.6 Blood Gas HCO3 29 Blood Gas Base Excess 5.8 Blood Gas Oxygen Saturation 97 Arterial Blood pH 7.49 Arterial Blood Partial 39 Pressure CO2 Arterial Blood Partial 279 Pressure O2 Arterial Blood Oxygen Content 15.6 Arterial Blood 0.5 Carboxyhemoglobin Arterial Blood Methemoglobin 0.0 Blood Gas Hemoglobin 10.9 Oxygen Delivery Device Non-Rebreathing Mask Blood Gas Liter Flow 15 White Blood Count 15.3 Red Blood Count 3.79 Hemoglobin 10.6 Hematocrit 32.5 Mean Corpuscular Volume 85.8 Mean Corpuscular Hemoglobin 28.0 Mean Corpuscular Hemoglobin 32.6 Concent Red Cell Distribution Width 16.5 Platelet Count 316 Mean Platelet Volume 7.8 Neutrophils (%) (Auto) 82.6 Lymphocytes (%) (Auto) 8.5 Monocytes (%) (Auto) 7.8 Eosinophils (%) (Auto) 0.5 Basophils (%) (Auto) 0.6 Neutrophils # (Auto) 12.6 Lymphocytes # (Auto) 1.3 Monocytes # (Auto) 1.2 Eosinophils # (Auto) 0.1 Basophils # (Auto) 0.1 CBC Comment DIFF FINAL Differential Comment Prothrombin Time 11.1 Prothromb Time International 1.0 Ratio Sodium Level 136 Potassium Level 3.4 Chloride Level 93 Carbon Dioxide Level 29.3 Anion Gap 14 Blood Urea Nitrogen 62 Creatinine 3.44 Estimat Glomerular Filtration 17 Rate Random Glucose 299 Calcium Level 7.7 Troponin I LESS THAN 0.02 B-Type Natriuretic Peptide 262 Date/Time Procedure Status Source Growth 07/07/16 17:18 Aerobic Blood Culture Received Blood Peripheral Pending 07/07/16 17:18 Anaerobic Blood Culture Received Blood Peripheral Pending (Suzy Clark MD R2) Result Diagram: 07/07/16 1710 07/07/16 1710 Imaging Last 24 hours Impressions Chest X-Ray 07/07/16 1657 Signed Impressions: Service Date/Time: Saturday, July 07, 2016 17:22 - CONCLUSION: Pulmonary venous congestion versus early edema. Roberto Garcia MD (Suzy Clark MD R2) Assessment and Plan Assessment and Plan Pt is a 50 year old female with history of COPD, DM, HTN presenting due to COPD exacerbation. Code Status Full Discussed Condition With sdw Dr. Kelvin Rodríguez (Suzy Clark MD R2) Attending Attestation Patient seen and examined. Case reviewed and discussed with the resident team. Agree with plan of care as discussed with me and documented in the resident note. pt seen in ED on admission (Noreen Rodríguez MD) Problem List: (1) COPD exacerbation Status: Acute Plan: Pt with history of COPD, currently presenting due to COPD exacerbation. WBC count 15.3, ABG while on nonrebreather mask at 15 L with ph of 7.49, PCO2 39 , PO2 279, Oxygen saturation 97. See CXR below. Patient currently stable on nasal cannula 5 L. -Soulmedrol 40mg IV Q12hrs -Duonebs Q4hrs -Albuterol Q2 hrs PRN SOB -Montelukast 10mg PO HS -Oxygen supplementation as needed. -BiPap/CPAP to be worn at night -Will consider starting Rocephin and azithromycin tomorrow -Patient reports that she no longer has a insurance defense attorney to follow up with as an outpatient due to her insurance. -Pulmonology has been consulted, appreciate recommendations -Patient has a questionable history of sarcoidosis but this has never been confirmed. Patient needs to have a lung biopsy. Imaging: CXR 07/07: Pulmonary venous congestion versus early edema Mediations given in ED: Lasix 60 mg 1 DuoNeb 1 Vancomycin 1000 mg IV 1 Zosyn 4.5 g IV 1 (2) DM (diabetes mellitus) Status: Chronic Plan: Pt with history of DM. Home medications include Levemir 40 units BID, and Novalog SSI: 30 units with each meal. -Hemoglobin A1c 9.5 from 05/02/16 -Levemir 20 units BID -Novalog 10 units TIDAC -Continue to monitor blood glucose, will consider increasing Levemir if blood glucose remains elevated -Insulin low dose sliding scale (3) CKD (chronic kidney disease) stage 3, GFR 30-59 ml/min Status: Acute Plan: Patient had CT-guided needle biopsy of right kidney on 08/01/15. 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 Interstitial fibrosis and tubular atrophy, severe. Arteriosclerosis, severe. - Monitor Is and Os - Monitor daily BMP - Nephrology has been consulted, appreciate recommendations (4) FEN/PPX Status: Acute Plan: Electrolytes: Potassium low at 3.4, PO potassium ordered, continue to monitor Nutrition: Diabetic Diet DVT PPX: Heparin GI PPX: Protonix Chronic conditions: Diabetic neuropathy -Gabapentin 400mg po TID for neuropathy, decreased due to renal function Anemia -Continue home Ferrous sulfate HTN -Bumex, pt previously on Amlodipine which can be resumed for elevated blood pressures (Suzy Clark MD R2) Physician Certification 2 Midnight Certification Type: Admission for Inpatient Services Order for Inpatient Services The services are ordered in accordance with Medicare regulations or non- Medicare payer requirements, as applicable. In the case of services not specified as inpatient-only, they are appropriately provided as inpatient services in accordance with the 2-midnight benchmark. Estimated LOS (days): 2 2 days is the estimated time the patient will need to remain in the hospital, assuming treatment plan goals are met and no additional complications. Post-Hospital Plan: Not yet determined (Suzy Clark MD R2) Problem Qualifiers (1) DM (diabetes mellitus): Qualified Code: E11.8 - Type 2 diabetes mellitus with complication, unspecified mcfp insulin use status Suzy Clark MD R2 Jul 07, 2016 19:36 Noreen Rodríguez MD Jul 08, 2016 13:25
[2016-07-07] MEDS ORDERED: DEXTROSE 50% IN WATER 50 ML VIAL(D50) IV PUSH PRN (21:00)
[2016-07-07] MEDS ORDERED: RESP: ALBUTEROL 2.5 MG/3 ML NEB (PRN) INH (21:00)
[2016-07-07] MEDS: SODIUM CHLORIDE 0.9% FLUSH 10 ML FLUSH IV FLUSH SCH (21:00)
[2016-07-07] MEDS ORDERED: GLUCAGON 1 MG/ML VIAL OTHER PRN (21:00)
[2016-07-07] MEDS ORDERED: ONDANSETRON HCL 4 MG/2 ML VIAL IV PRN (21:00)
[2016-07-07] MEDS ORDERED: DOCUSATE SODIUM 50 MG/SENNA 8.6 MG TAB PO PRN (21:00)
[2016-07-07] MEDS ORDERED: ACETAMINOPHEN 325 MG TAB PO PRN (21:00)
[2016-07-07] MEDS: INSULIN ASPART SUPPLEMENTAL SCALE SQ SCH (21:16)
[2016-07-07] MEDS: HEPARIN SODIUM - SQ 10,000 UNITS/ML VIAL SQ SCH (21:17)
[2016-07-07] MEDS: methylPREDNISolone SOD SUCC 40 MG/1 ML VIAL IV PUSH SCH (21:17)
[2016-07-07] MEDS: BUMETANIDE 1 MG TAB PO SCH (21:18)
[2016-07-07] MEDS: MONTELUKAST SODIUM 10 MG TAB PO SCH (21:18)
[2016-07-07] MEDS: PANTOPRAZOLE SOD 40 MG DELAYED RELEASE TAB PO SCH (21:18)
[2016-07-07] MEDS: FERROUS SULFATE 325 MG (65 MG ELEMENTAL IRON) TAB PO SCH (21:18)
[2016-07-07] MEDS ORDERED: ALBUTEROL SULFATE 90 MCG/ACT HFA 18 GM INHALER INH PRN (22:00)
[2016-07-07] MEDS: BUDESONIDE-FORMOTEROL 160/4.5 MCG INHALER INH SCH (22:35)
[2016-07-07] MEDS: AMOXICILLIN (TRIHYDRATE) 500 MG CAP PO SCH (22:36)
[2016-07-08] VITALS (9 sets, daily range): BP systolic 108–135; BP diastolic 58–73; PULSE 73–97; RESP 16–20; TEMP 95.4–97.2; O2SAT 91–100
[2016-07-08] MEDS: RESP: ALBUTEROL 2.5 MG/IPRATROPIUM 0.5 MG NEB (SCH) INH ×6 (00:19→19:42)
[2016-07-08] MEDS: ACETAMINOPHEN/CODEINE 300 MG/30 MG TAB PO PRN ×3 (01:10→18:54)
[2016-07-08 01:34] LABS: BACTERIA, URINE RARE /hpf; BLOOD, URINE NEG (NEG); COMMENT (UR) CULT NOT INDICATED; CULTURE IF INDICATED CULT NOT INDICATED; GLUCOSE,URINE 70 mg/dL (NEG); KETONE, URINE NEG (NEG); NITRITE,URINE NEG (NEG); URINE COLOR COLORLESS (YELLW/STRAW)
[2016-07-08] MEDS: AMOXICILLIN (TRIHYDRATE) 500 MG CAP PO SCH (05:37)
[2016-07-08] MEDS: INSULIN ASPART SUPPLEMENTAL SCALE SQ SCH ×4 (05:38→21:20)
[2016-07-08 06:05] LABS: AUTOMATED NEUTROPHIL # 8.9 TH/MM3 (1.8-7.7); BASOPHIL % 0.4 % (0.0-2.0); EOSINOPHIL % 0.1 % (0.0-4.0); HEMATOCRIT 29.8 % (35.0-46.0); HEMO FLAGS DIFF FINAL; LYMPH % 5.5 % (9.0-44.0); LYMPHOCYTE # 0.5 TH/MM3 (1.0-4.8); MEAN CELL VOLUME 85.9 FL (80.0-100.0); MEAN CORPUSCULAR HEMOGLOBIN 28.4 PG (27.0-34.0); MEAN CORPUSCULAR HGB CONC 33.1 % (32.0-36.0); MONO % 2.1 % (0.0-8.0); NEUT % 91.9 % (16.0-70.0); PLATELET COUNT 276 TH/MM3 (150-450); RED BLOOD COUNT 3.47 MIL/MM3 (4.00-5.30); RED CELL DISTRIBUTION WIDTH 17.2 % (11.6-17.2); WHITE BLOOD COUNT 9.7 TH/MM3 (4.0-11.0)
[2016-07-08 06:09] LABS: BICARBONATE 32.6 MEQ/L (21.0-32.0); POTASSIUM 3.9 MEQ/L (3.5-5.1)
[2016-07-08] MEDS ORDERED: INSULIN DETEMIR 100 UNITS/ML VIAL SQ SCH ×3 (08:00→21:00)
[2016-07-08] MEDS ORDERED: INSULIN ASPART 1,000 UNITS/10 ML VIAL SQ SCH ×2 (08:00→18:00)
[2016-07-08] MEDS: METOLAZONE 5 MG TAB PO SCH (09:07)
[2016-07-08] MEDS: PANTOPRAZOLE SOD 40 MG DELAYED RELEASE TAB PO SCH (09:07)
[2016-07-08] MEDS: MULTIVITAMINS/MINERALS THERAPEUTIC TAB PO SCH (09:07)
[2016-07-08] MEDS: ASPIRIN EC 81 MG TABEC PO SCH (09:07)
[2016-07-08] MEDS: GABAPENTIN 300 MG CAP PO SCH (09:07)
[2016-07-08] MEDS: FERROUS SULFATE 325 MG (65 MG ELEMENTAL IRON) TAB PO SCH ×2 (09:07→21:19)
[2016-07-08] MEDS: SODIUM CHLORIDE 0.9% FLUSH 10 ML FLUSH IV FLUSH SCH ×2 (09:08→21:19)
[2016-07-08] MEDS: BUMETANIDE 1 MG TAB PO SCH (09:08)
[2016-07-08] MEDS: HEPARIN SODIUM - SQ 10,000 UNITS/ML VIAL SQ SCH ×2 (09:08→21:18)
[2016-07-08] MEDS: BUDESONIDE-FORMOTEROL 160/4.5 MCG INHALER INH SCH ×2 (09:08→21:19)
[2016-07-08] MEDS: methylPREDNISolone SOD SUCC 40 MG/1 ML VIAL IV PUSH SCH ×2 (09:08→21:19)
[2016-07-08] MEDS ORDERED: PNEUMOCOCCAL POLYVALENT INJ 25 MCG/0.5 ML SYR IM ONE (10:00)
--- NOTE | 2016-07-08 10:33 | EKG ---
Date Performed: 07/07/2016 Time Performed: 17:32:23 PTAGE: 50 years EKG: Sinus rhythm MODERATE T-WAVE ABNORMALITY, CONSIDER ANTERIOR ISCHEMIA ABNORMAL ECG Compared to prior tracing no si gnificant change PREVIOUS TRACING : 11/09/2015 12.53 DOCTOR: Heramn Edwards Interpretating Date/Time 07/08/2016 10:26:55
--- NOTE | 2016-07-08 10:49 | HHI.HP ---
[facility] Service Family Medicine Primary Care Physician Dao Engle MD Admission Diagnosis pulmonary edema, renal failure, hospital-acquired pneumonia Diagnoses: (1) COPD exacerbation Diagnosis: Principal (2) DM (diabetes mellitus) Diagnosis: Principal (3) CKD (chronic kidney disease) stage 3, GFR 30-59 ml/min Diagnosis: Principal (4) FEN/PPX Diagnosis: Principal (5) Lupus Diagnosis: Principal International Travel<30 Days: No Contact w/Intl Traveler<30days: No Known Affected Area: No History of Present Illness Ms See is a 50-year-old female with past medical history significant for COPD, diabetes, COPD, lupus presenting due to COPD exacerbation. Patient reports that she has been feeling progressively short of breath over the past 3 days. She was last discharged from the hospital in May after being admitted for a COPD exacerbation. After she completed prescribed steroids she has had worsening shortness of breath. She has had to increase her home oxygen level. She is concerned that her home oxygen tank and CPAP machine may not be working properly. Patient was at a earlier today with her daughter and her daughter noticed that she was having difficulty breathing and insisted on bringing her into the ED. Patient's oxygen saturation has been as low as the mid 70s when she was at home. She has been more fatigued recently. She denies any recent illness. She has also not been able to see her press operator carbon blocks, Dr. Mcdaniel, due to his office no longer accepting her insurance. She was initially placed on a nonrebreather and then was weaned to a nasal canula. She reports feeling much improved today in her breathing, her generalized edema and her body aches as well as her renal function is slightly better. She reports a pattern of getting worse every time she weans off prednisone and then improving in so many ways when she goes back on it. Her URIEL has been 1:1280 or more for years. Review of Systems Other Constitutional: COMPLAINS OF: Chills, DENIES: Fever Eyes: DENIES: Vision loss Ears, nose, mouth, throat: DENIES: Hearing loss Respiratory: COMPLAINS OF: Shortness of breath Cardiovascular: COMPLAINS OF: Chest pain, Dyspnea on Exertion, Lower Extremity Edema Gastrointestinal: DENIES: Abdominal pain, Black stools, Bloody stools, Constipation, Diarrhea Genitourinary: COMPLAINS OF: Urinary incontinence Integumentary: DENIES: Rash Neurologic: COMPLAINS OF: Tremor Psychiatric: DENIES: Mood changes Past Family Social History Past Medical History COPD ?Sarcoidosis DM Lupus Past Surgical History Right ankle surgery Allergies: Coded Allergies: *MDRO Multi-Drug Resistant Organism (Verified Adverse Reaction, Unknown, ) 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 Pt does not require isolation for hx of MDRO prior to 05/11/15* Family History Mother: Lupus Father: DM, HTN, CKD, Visually impaired Social History Pt is not working, disabled due to chronic medical problems. Denies smoking, drinking, illicit drug use. Physical Exam Vital Signs Vital Signs Date Time Temp Pulse Resp B/P Pulse Ox O2 Delivery O2 Flow Rate FiO2 07/08/16 08:19 95 Nasal Cannula 4.00 07/08/16 08:00 95.4 85 16 114/63 100 07/08/16 03:50 99 50 07/08/16 01:00 99 50 07/08/16 01:00 99 BiPAP 50 07/08/16 00:00 97.1 97 20 108/63 95 07/07/16 20:42 93 16 114/70 96 Nasal Cannula 5 07/07/16 18:08 98 17 106/66 92 Nasal Cannula 5 07/07/16 17:53 94 Nasal Cannula 5.00 07/07/16 17:32 24 95 Aerosol Mask 07/07/16 17:32 95 Aerosol Mask 07/07/16 17:10 99 Venturi Mask 6.00 50 07/07/16 17:00 96 29 113/55 96 Aerosol Mask 100 07/07/16 16:48 103 24 79 07/07/16 16:45 98.3 106 36 89/55 64 Nasal Cannula Physical Exam GENERAL: This is a well-nourished, well-developed patient, in no acute respiratory distress. SKIN: No rashes, ecchymoses or lesions. Cool and dry. HEAD: Atraumatic. Normocephalic. No temporal or scalp tenderness. EYES: Pupils equal round and reactive. Extraocular motions intact. No scleral icterus. No injection or drainage. ENT: Nose without bleeding, purulent drainage or septal hematoma. Uvula midline. Airway patent. NECK: Trachea midline. No JVD or lymphadenopathy. Supple, nontender, no meningeal signs. CARDIOVASCULAR: Regular rate and rhythm without murmurs, gallops, or rubs. RESPIRATORY: Diffuse crackles, more pronounced in lower lung be. Normal work of breathing. NC 5L, O2 saturation high 80s-low90s during exam. GASTROINTESTINAL: Abdomen soft, non-tender, nondistended. No hepato-splenomegaly , or palpable masses. No guarding. MUSCULOSKELETAL: 1+ pitting edema of bilateral lower extremities to mid calf. Extremities without clubbing, cyanosis, or edema. No joint tenderness, effusion , or edema noted. NEUROLOGICAL: Awake and alert. Cranial nerves II through XII intact. Motor and sensory grossly within normal limits. Normal speech. Laboratory Laboratory Tests Test 07/07/16 07/07/16 07/08/16 07/08/16 16:54 17:10 01:10 04:50 Blood Gas Puncture Site LT RADIAL Blood Gas Patient Temperature 98.6 Blood Gas HCO3 29 Blood Gas Base Excess 5.8 Blood Gas Oxygen Saturation 97 Arterial Blood pH 7.49 Arterial Blood Partial 39 Pressure CO2 Arterial Blood Partial 279 Pressure O2 Arterial Blood Oxygen Content 15.6 Arterial Blood 0.5 Carboxyhemoglobin Arterial Blood Methemoglobin 0.0 Blood Gas Hemoglobin 10.9 Oxygen Delivery Device Non-Rebreathing Mask Blood Gas Liter Flow 15 White Blood Count 15.3 9.7 Red Blood Count 3.79 3.47 Hemoglobin 10.6 9.9 Hematocrit 32.5 29.8 Mean Corpuscular Volume 85.8 85.9 Mean Corpuscular Hemoglobin 28.0 28.4 Mean Corpuscular Hemoglobin 32.6 33.1 Concent Red Cell Distribution Width 16.5 17.2 Platelet Count 316 276 Mean Platelet Volume 7.8 7.4 Neutrophils (%) (Auto) 82.6 91.9 Lymphocytes (%) (Auto) 8.5 5.5 Monocytes (%) (Auto) 7.8 2.1 Eosinophils (%) (Auto) 0.5 0.1 Basophils (%) (Auto) 0.6 0.4 Neutrophils # (Auto) 12.6 8.9 Lymphocytes # (Auto) 1.3 0.5 Monocytes # (Auto) 1.2 0.2 Eosinophils # (Auto) 0.1 0.0 Basophils # (Auto) 0.1 0.0 CBC Comment DIFF FINAL DIFF FINAL Differential Comment Prothrombin Time 11.1 Prothromb Time International 1.0 Ratio Sodium Level 136 132 Potassium Level 3.4 3.9 Chloride Level 93 86 Carbon Dioxide Level 29.3 32.6 Anion Gap 14 13 Blood Urea Nitrogen 62 65 Creatinine 3.44 2.89 Estimat Glomerular Filtration 17 21 Rate Random Glucose 299 509 Calcium Level 7.7 7.8 Troponin I LESS THAN 0.02 B-Type Natriuretic Peptide 262 Urine Color COLORLESS Urine Turbidity CLEAR Urine pH 7.0 Urine Specific [place] 1.007 Urine Protein NEG Urine Glucose (UA) 70 Urine Ketones NEG Urine Occult Blood NEG Urine Nitrite NEG Urine Bilirubin NEG Urine Urobilinogen LESS THAN 2.0 Urine Leukocyte Esterase NEG Urine RBC LESS THAN 1 Urine WBC LESS THAN 1 Urine Bacteria RARE Microscopic Urinalysis Comment CULT NOT INDICATED Date/Time Procedure Status Source Growth 07/07/16 17:18 Aerobic Blood Culture Received Blood Peripheral Pending 07/07/16 17:18 Anaerobic Blood Culture Received Blood Peripheral Pending Result Diagram: 07/08/16 0450 07/08/16 0450 Imaging Last 24 hours Impressions Chest X-Ray 07/07/16 1657 Signed Impressions: Service Date/Time: Thursday, July 07, 2016 17:22 - CONCLUSION: Pulmonary venous congestion versus early edema. Roberto Garcia MD Assessment and Plan Assessment and Plan Pt is a 50 year old female with history of COPD, DM, HTN presenting due to COPD exacerbation. Problem List: (1) Lupus Status: Acute Plan: Pt with very high URIEL in past and now ESR greater than 140 and CRP 14. She states she always feels better on steroids and worse off them. She does not see Rheumatology normally so will hopefully be able to see them as an outpt. Unclear if her multiple lung, renal and generalized body pains are due to lupus vs another inflammatory problem. Will continue to investigate what her exact diagnosis could be as she could have a primary vasculitis vs lupus related problem. (2) COPD exacerbation Status: Acute Plan: Pt with history of COPD, currently presenting due to COPD exacerbation. WBC count 15.3, ABG while on nonrebreather mask at 15 L with ph of 7.49, PCO2 39 , PO2 279, Oxygen saturation 97. See CXR below. Patient currently stable on nasal cannula 5 L. Improved overnight, she feels better today possibly because she had solumedrol as the antibiotics would not improve her that fast -Soulmedrol 40mg IV Q12hrs, will probably need longer term steroids until she gets a definitive diagnosis and can have treatment -Duonebs Q4hrs -Albuterol Q2 hrs PRN SOB -Montelukast 10mg PO HS -Oxygen supplementation as needed. -BiPap/CPAP to be worn at night, she'll have bipap in the hospital -Will consider starting Rocephin and azithromycin -Patient reports that she no longer has a press operator carbon blocks to follow up with as an outpatient due to her insurance. -Pulmonology has been consulted, appreciate recommendations -Patient has a questionable history of sarcoidosis but this has never been confirmed. Patient may need to have a lung biopsy. However, sarcoid can be treated with steroids Imaging: CXR 07/07: Pulmonary venous congestion versus early edema Mediations given in ED: Lasix 60 mg 1 DuoNeb 1 Vancomycin 1000 mg IV 1 Zosyn 4.5 g IV 1 (3) DM (diabetes mellitus) Status: Chronic Plan: Pt with history of DM. Home medications include Levemir 40 units BID, and Novalog SSI: 30 units with each meal. -Hemoglobin A1c 9.5 from 05/02/16 -Levemir 20 units BID -Novalog 10 units TIDAC -Continue to monitor blood glucose, will consider increasing Levemir if blood glucose remains elevated -Insulin low dose sliding scale very high glucoses. will work on changing insulin to help this problem (4) CKD (chronic kidney disease) stage 3, GFR 30-59 ml/min Status: Acute Plan: Patient had CT-guided needle biopsy of right kidney on 08/01/15. 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 Interstitial fibrosis and tubular atrophy, severe. Arteriosclerosis, severe. - Monitor Is and Os - Monitor daily BMP - Nephrology has been consulted, appreciate recommendations - will see if her renal fxn improves on steroids. she definitely has DM and HTN related renal disease but may now have superimposed vasculitic problem with her ESR of over 140 (5) FEN/PPX Status: Acute Plan: Electrolytes: Potassium low at 3.4, PO potassium ordered, continue to monitor Nutrition: Diabetic Diet DVT PPX: Heparin GI PPX: Protonix Chronic conditions: Diabetic neuropathy -Gabapentin 400mg po TID for neuropathy, decreased due to renal function Anemia -Continue home Ferrous sulfate HTN -Bumex, pt previously on Amlodipine which can be resumed for elevated blood pressures Physician Certification 2 Midnight Certification Type: Admission for Inpatient Services Order for Inpatient Services The services are ordered in accordance with Medicare regulations or non- Medicare payer requirements, as applicable. In the case of services not specified as inpatient-only, they are appropriately provided as inpatient services in accordance with the 2-midnight benchmark. Estimated LOS (days): 3 3 days is the estimated time the patient will need to remain in the hospital, assuming treatment plan goals are met and no additional complications. Post-Hospital Plan: Not yet determined Problem Qualifiers (1) DM (diabetes mellitus): Qualified Code: E11.8 - Type 2 diabetes mellitus with complication, unspecified custodial insulin use status (2) Lupus: Qualified Code: M32.13 - Systemic lupus erythematosus with lung involvement, unspecified SLE type Noreen Rodríguez MD Jul 08, 2016 10:49
[2016-07-08] MEDS: cefTRIAXone INJ 2,000 MG in SODIUM CHLORIDE 0.9% INJ 100 ML IV SCH (11:38)
[2016-07-08] MEDS: AZITHROMYCIN 250 MG TAB PO SCH (11:38)
[2016-07-08] MEDS: BENZONATATE 100 MG CAP PO PRN (11:44)
--- NOTE | 2016-07-08 15:49 | PD.CONS ---
HPI Consult Requested By Reason for Consult Acute on chronic renal insufficiency. Primary Care Physician Dao Engle MD History of Present Illness 50-year-old female with a history of chronic kidney disease stage III. Previous kidney biopsy dated August 01, 2015 revealed evidence of diabetic nephropathy, glomerulosclerosis segmental and global, severe interstitial fibrosis and tubular atrophy which are poor prognostic indicators as far as preservation of renal function is concerned for the future. There is no evidence of active lupus at that time. Patient now presents with a history of increasing lower extremity edema and dyspnea. Chest x-ray showed evidence of pulmonary congestion. Shortness of breath has improved after the patient received a dose of parenteral diuretic. There is also a history of lupus with a positive URIEL test in the past. Uncertain if patient has seen a dress cap maker. 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 She uses a CPAP at home. On presentation this admission creatinine was 3.34 and her glucose was 299. Blood pressure is also low initially at 89/55. Her pressures since improved. Creatinine level improved at time of consult to 2.89. Blood sugar still high on day of consultation at 509. Urinalysis showed no evidence of protein or microscopic hematuria. Review of Systems Constitutional: COMPLAINS OF: Fatigue, Weight gain, DENIES: Diaphoretic episodes, Fever, Weight loss, Chills, Dizziness, Change in appetite, Night Sweats Respiratory: COMPLAINS OF: Cough, Wheezing, Shortness of breath, DENIES: Apneas, Snoring, Hemoptysis, Sputum production Cardiovascular: COMPLAINS OF: Dyspnea on Exertion, Lower Extremity Edema, Orthopnea, DENIES: Chest pain, Palpitations, Syncope, PND, Claudication Gastrointestinal: DENIES: Abdominal pain, Black stools, Bloody stools, Constipation, Diarrhea, Nausea, Vomiting, Difficulty Swallowing, Anorexia Musculoskeletal: COMPLAINS OF: Stiffness, DENIES: Joint pain, Muscle aches Past Family Social History Allergies: Coded Allergies: *MDRO Multi-Drug Resistant Organism (Verified Adverse Reaction, Unknown, ) 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 Pt does not require isolation for hx of MDRO prior to 05/11/15* Past Medical History Chronic kidney disease stage III with baseline creatinine level of approximately 1.5. Kidney biopsy showing evidence of diabetic nephropathy, global and segmental glomerulosclerosis and severe interstitial fibrosis and tubular atrophy. Vitamin D deficiency. Lupus? Diabetes mellitus COPD Gastroesophageal reflux disease Previous mild proteinuria. About 1.5 g in the past. Past Surgical History Kidney biopsy previously. Reported Medications Reported Meds & Active Scripts Active Tessalon Perles (Benzonatate) 100 Mg Cap 200 Mg PO TID PRN Symbicort Inh (Budesonide/Formoterol Fumarate) 160-4.5 Mcg/Act Aero 2 Puff INH Q12HR Reported Prednisone 10 Mg Tab 10 Mg PO DAILY Chlorhexidine Gluconate (Mouth) Liq (Chlorhexidine Gluconate) 0.12% Soln Unknown Dose SWISH-SPIT BID Amoxicillin 500 Mg Cap 500 Mg PO Q6HR Aspirin 81 Mg Tabdr 81 Mg PO DAILY Bumex (Bumetanide) 2 Mg Tab 2 Mg PO BID Metolazone 5 Mg Tab 5 Mg PO DAILY Ferrous Sulfate 325 Mg Tab 325 Mg PO BID Ventolin Hfa 18 GM Inh (Albuterol Sulfate) 90 Mcg/Act Aer 2 Puff INH Q4H PRN Singulair (Montelukast Sodium) 10 Mg Tab 10 Mg PO HS Albuterol Neb (Albuterol Sulfate) 2.5 Mg/0.5 Ml Neb 2.5 Mg NEB Q4HR NEB PRN Note: The Albuterol Sulfate Inhalation Solution is concentrated and must be diluted. Read complete instructions carefully before using. Protonix (Pantoprazole Sodium) 40 Mg Tab 40 Mg PO DAILY Novolog Inj (Insulin Aspart) 1,000 Unit/10 Ml Vial 20 Units SQ TIDAC Novolog Inj (Insulin Aspart) 1,000 Unit/10 Ml Vial 0 SQ DIRECTED Sliding Scale as directed. Multivitamin Adults (Multiple Vitamins W/ Minerals) 1 Tab 1 Tab PO DAILY Levemir Inj (Insulin Detemir) 1,000 unit/ 10 ML Vial 40 Units SQ BID Do not mix with any other Insulin. Gabapentin 800 Mg Tab 800 Mg PO BID Active Ordered Medications Current Medications Sodium Chloride (NS Flush) 2 ml UNSCH PRN IVF FLUSH AFTER USING IV ACCESS; Start 07/07/16 at 17:00 Albuterol/ Ipratropium (Duoneb Neb) 1 ampule Q15M INH Last administered on t 17:09; Start 07/07/16 at 17:00; Stop 07/07/16 at 17:16; Status DC Furosemide 60 mg 60 mg ONCE ONCE IV PUSH Last administered on 07/07/16 18:22; Start 07/07/16 at 18:00; Stop 07/07/16 at 18:01; Status DC Piperacillin Sod/ Tazobactam Sod 100 ml @ 200 mls/hr ONCE ONCE IV Last administered on 07/07/16 21:53; Start 07/07/16 at 18:15; Stop 07/07/16 at 18:44; Status DC Vancomycin HCl/ Sodium Chloride (Vancomycin Inj/ NS 250 ml Inj) 250 ml @ 250 mls/hr ONCE ONCE IV Last administered on 07/07/16 18:23; Start 07/07/16 at 18: 15; Stop 07/07/16 at 19:14; Status DC Sodium Chloride (NS Flush) 2 ml BID IV FLUSH Last administered on 07/08/16 09: 08; Start 07/07/16 at 21:00 Albuterol/ Ipratropium (Duoneb Neb) 1 ampule Q4HR NEB INH Last administered on 07/08/16 11:58; Start 07/08/16 at 00:00 Albuterol Sulfate (Albuterol Neb) 2.5 mg Q2HR NEB PRN INH SHORTNESS OF BREATH; Start 07/07/16 at 21:00 Heparin Sodium (Porcine) (Heparin Inj) 5,000 units Q12H SQ Last administered on 07/08/16 09:08; Start 07/07/16 at 21:00 Methylprednisolone Sodium Succinate (SoluMEDROL INJ) 40 mg Q12HR IV PUSH Last administered on 07/08/16 09:08; Start 07/07/16 at 21:00 Albuterol Sulfate (Ventolin Hfa Inh) 2 puff Q4H PRN INH SHORTNESS OF BREATH; Start 07/07/16 at 22:00 Amoxicillin (Trimox) 500 mg Q6HR PO Last administered on 07/08/16 05:37; Start 07/08/16 at 00:00; Stop 07/08/16 at 10:01; Status DC Aspirin (Ecotrin Ec) 81 mg DAILY PO Last administered on 07/08/16 09:07; Start 07/08/16 at 09:00 Benzonatate (Tessalon) 200 mg TID PRN PO cough Last administered on 07/08/16 11 :44; Start 07/07/16 at 20:45 Budesonide/ Formoterol Fumarate (Symbicort 160-4.5 Inh) 2 puff Q12HR INH Last administered on 07/08/16 09:08; Start 07/07/16 at 21:00 Bumetanide (Bumetanide) 2 mg BID PO Last administered on 07/08/16 09:08; Start 07/07/16 at 21:00 Ferrous Sulfate (Ferrous Sulfate) 325 mg BID PO Last administered on 07/08/16 09:07; Start 07/07/16 at 21:00 Metolazone (Zaroxolyn) 5 mg DAILY PO Last administered on 07/08/16 09:07; Start 07/08/16 at 09:00 Montelukast Sodium (Singulair) 10 mg HS PO Last administered on 07/07/16 21:18 ; Start 07/07/16 at 21:00 Multivitamins/ Minerals Therapeutic (Theragran M Tab) 1 tab DAILY PO Last administered on 07/08/16 09:07; Start 07/08/16 at 09:00 Insulin Aspart (NovoLOG INJ) 20 units BID@08,17 SQ Last administered on 07:24; Start 07/08/16 at 08:00; Stop 07/08/16 at 13:22; Status DC Insulin Detemir (Levemir Inj) 10 units TIDAC SQ Last administered on 07/08/16 07:22; Start 07/08/16 at 08:00; Stop 07/08/16 at 10:01; Status DC Dextrose (D50w (Vial) Inj) 25 ml UNSCH PRN IV PUSH HYPOGLYCEMIA-SEE COMMENTS; Start 07/07/16 at 21:00 Glucagon (Glucagon Inj) 1 mg UNSCH PRN OTHER HYPOGLYCEMIA-SEE COMMENTS; Start 07/07/16 at 21:00 Insulin Aspart (NovoLOG SUPPLEMENTAL SCALE) 1 ACHS SLIDING SCALE SQ Last administered on 07/08/16 11:38; Start 07/07/16 at 21:00 Pantoprazole Sodium (Protonix) 40 mg DAILY PO Last administered on 07/08/16 09: 07; Start 07/07/16 at 21:00 Gabapentin (Neurontin) 300 mg DAILY PO Last administered on 07/08/16 09:07; Start 07/08/16 at 09:00 Acetaminophen (Tylenol) 650 mg Q4H PRN PO Temp > 100.4; Start 07/07/16 at 21:00 Ondansetron HCl (Zofran Inj) 4 mg Q6H PRN IV NAUSEA; Start 07/07/16 at 21:00 Senna/Docusate Sodium (Galina-Colace) 1 tab BID PRN PO CONSTIPATION; Start at 21:00 Acetaminophen/ Codeine Phosphate (Tylenol-Codeine #3) 1 tab Q6H PRN PO PAIN SCALE 6 TO 10 Last administered on 07/08/16 11:45; Start 07/07/16 at 23:15 Pneumococcal Polyvalent Vaccine (Pneumovax-23 Inj) 25 mcg ONCE ONCE IM ; Start 07/08/16 at 10:00; Stop 07/08/16 at 10:01; Status DC Insulin Detemir (Levemir Inj) 15 units BID SQ ; Start 07/08/16 at 21:00; Stop 07/08/16 at 21:00; Status DC Azithromycin 500 mg 500 mg DAILY PO Last administered on 07/08/16 11:38; Start 07/08/16 at 11:00 Ceftriaxone Sodium/Sodium Chloride (Rocephin Inj/NS Inj) 100 ml @ 200 mls/hr Q24H IV Last administered on 07/08/16 11:38; Start 07/08/16 at 12:00 Insulin Aspart (NovoLOG INJ) 20 units TID SQ ; Start 07/08/16 at 18:00 Insulin Detemir (Levemir Inj) 20 units BID SQ ; Start 07/08/16 at 21:00 Family History Noncontributory current complaint. Social History No history of illicit drug use currently. Physical Exam Vital Signs Vital Signs Date Time Temp Pulse Resp B/P Pulse Ox O2 Delivery O2 Flow Rate FiO2 07/08/16 12:45 18 07/08/16 12:00 97.2 93 16 111/61 92 07/08/16 08:19 95 Nasal Cannula 4.00 07/08/16 08:00 95.4 85 16 114/63 100 07/08/16 03:50 99 50 07/08/16 01:00 99 50 07/08/16 01:00 99 BiPAP 50 07/08/16 00:00 97.1 97 20 108/63 95 07/07/16 20:42 93 16 114/70 96 Nasal Cannula 5 07/07/16 18:08 98 17 106/66 92 Nasal Cannula 5 07/07/16 17:53 94 Nasal Cannula 5.00 07/07/16 17:32 24 95 Aerosol Mask 07/07/16 17:32 95 Aerosol Mask 07/07/16 17:10 99 Venturi Mask 6.00 50 07/07/16 17:00 96 29 113/55 96 Aerosol Mask 100 07/07/16 16:48 103 24 79 07/07/16 16:45 98.3 106 36 89/55 64 Nasal Cannula Physical Exam GENERAL: Moderately obese. Mild dyspnea. SKIN: Warm and dry. HEAD: Normocephalic. EYES: No scleral icterus. No injection or drainage. NECK: Supple, trachea midline. No JVD or lymphadenopathy. CARDIOVASCULAR: Regular rate and rhythm without murmurs, gallops, or rubs. RESPIRATORY: Breath sounds equal bilaterally. No accessory muscle use. Diminished air entry lung bases. No elliot wheezing or rales currently. GASTROINTESTINAL: Abdomen soft, non-tender, nondistended. MUSCULOSKELETAL: No cyanosis, 1+ pitting edema legs and feet. No erythema.. BACK: Nontender without obvious deformity. No CVA tenderness. Laboratory Laboratory Tests Test 07/07/16 07/07/16 07/08/16 07/08/16 16:54 17:10 01:10 04:50 Blood Gas Puncture Site LT RADIAL Blood Gas Patient Temperature 98.6 Blood Gas HCO3 29 Blood Gas Base Excess 5.8 Blood Gas Oxygen Saturation 97 Arterial Blood pH 7.49 Arterial Blood Partial 39 Pressure CO2 Arterial Blood Partial 279 Pressure O2 Arterial Blood Oxygen Content 15.6 Arterial Blood 0.5 Carboxyhemoglobin Arterial Blood Methemoglobin 0.0 Blood Gas Hemoglobin 10.9 Oxygen Delivery Device Non-Rebreathing Mask Blood Gas Liter Flow 15 White Blood Count 15.3 9.7 Red Blood Count 3.79 3.47 Hemoglobin 10.6 9.9 Hematocrit 32.5 29.8 Mean Corpuscular Volume 85.8 85.9 Mean Corpuscular Hemoglobin 28.0 28.4 Mean Corpuscular Hemoglobin 32.6 33.1 Concent Red Cell Distribution Width 16.5 17.2 Platelet Count 316 276 Mean Platelet Volume 7.8 7.4 Neutrophils (%) (Auto) 82.6 91.9 Lymphocytes (%) (Auto) 8.5 5.5 Monocytes (%) (Auto) 7.8 2.1 Eosinophils (%) (Auto) 0.5 0.1 Basophils (%) (Auto) 0.6 0.4 Neutrophils # (Auto) 12.6 8.9 Lymphocytes # (Auto) 1.3 0.5 Monocytes # (Auto) 1.2 0.2 Eosinophils # (Auto) 0.1 0.0 Basophils # (Auto) 0.1 0.0 CBC Comment DIFF FINAL DIFF FINAL Differential Comment Prothrombin Time 11.1 Prothromb Time International 1.0 Ratio Sodium Level 136 132 Potassium Level 3.4 3.9 Chloride Level 93 86 Carbon Dioxide Level 29.3 32.6 Anion Gap 14 13 Blood Urea Nitrogen 62 65 Creatinine 3.44 2.89 Estimat Glomerular Filtration 17 21 Rate Random Glucose 299 509 Calcium Level 7.7 7.8 Troponin I LESS THAN 0.02 B-Type Natriuretic Peptide 262 Urine Color COLORLESS Urine Turbidity CLEAR Urine pH 7.0 Urine Specific [place] 1.007 Urine Protein NEG Urine Glucose (UA) 70 Urine Ketones NEG Urine Occult Blood NEG Urine Nitrite NEG Urine Bilirubin NEG Urine Urobilinogen LESS THAN 2.0 Urine Leukocyte Esterase NEG Urine RBC LESS THAN 1 Urine WBC LESS THAN 1 Urine Bacteria RARE Microscopic Urinalysis Comment CULT NOT INDICATED Test 07/08/16 11:57 Erythrocyte Sedimentation Rate GREATER THAN 140 C-Reactive Protein 14.00 Date/Time Procedure Status Source Growth 07/07/16 17:18 Aerobic Blood Culture - Preliminary Resulted Blood Peripheral NO GROWTH IN 1 DAY 07/07/16 17:18 Anaerobic Blood Culture - Preliminary Resulted Blood Peripheral NO GROWTH IN 1 DAY Result Diagram: 07/08/16 0450 07/08/16 0450 Imaging Last 48 hours Impressions Chest X-Ray 07/07/16 1037 Signed Impressions: Service Date/Time: Thursday, July 07, 2016 17:22 - CONCLUSION: Pulmonary venous congestion versus early edema. Roberto Garcia MD Assessment and Plan Problem List: (1) Acute renal failure Plan: There is no evidence of previous lupus nephritis on a kidney biopsy performed August 01, 2015. Current urinalysis does not seem to suggest worsening proteinuria or microscopic hematuria that would be indicative of nephritis. Also the creatinine level has improved overnight. Suspect acute renal insufficiency is related to hemodynamic factors i.e. cardiac decompensation and hypotension on presentation. There may have been some intravascular volume depletion related to hyperglycemia also. Continue to monitor renal function. (2) CKD (chronic kidney disease) stage 3, GFR 30-59 ml/min Plan: Biopsy confirmed diabetic nephropathy as well as glomerulosclerosis previously. Baseline creatinine about 1.5. (3) CHF (congestive heart failure) Plan: Check 2-D echocardiogram to assess myocardial function. Change bumetanide to parenteral as ordered. (4) Acute exacerbation of chronic obstructive pulmonary disease Plan: Management per primary care physician. (5) Anemia Plan: Check iron saturation and ferritin. (6) Diabetic nephropathy Plan: Biopsy confirmed with evidence of severe interstitial fibrosis and tubular atrophy. Izabel Day MD Jul 08, 2016 15:49
[2016-07-08] MEDS ORDERED: INSULIN ASPART 1,000 UNITS/10 ML VIAL SQ ONE ×2 (17:00→19:00)
[2016-07-08] MEDS: BUMETANIDE INJ 1 MG/4 ML VIAL IV PUSH SCH (17:55)
--- NOTE | 2016-07-08 19:47 | MB ---
cc: PINA BAKER DATE OF CONSULTATION: 07/08/2016. REASON FOR CONSULTATION: Evaluation of shortness of breath and history of obstructive sleep apnea. REQUESTING PHYSICIAN: Dr. Rodríguez. HISTORY OF PRESENT ILLNESS: Ms. See is a pleasant 50-year-old morbidly obese -[place] female with history of COPD, obstructive sleep apnea, chronic kidney disease. The patient has been having increasing shortness of breath for the last few weeks. She was admitted in the hospital in May and after that she felt that she did not feel as well. She has been having increasing shortness of breath recently and her shortness of breath was getting worse after she went to a . Her oxygen saturation was low and that is why she decided to come to the emergency room. She had a workup done. Her WBC count is 9.7, hemoglobin 9.9, hematocrit 29.8, MCV 85, MCV 85, platelet count 276,000. Her sodium is 132, potassium 3.9, chloride 86, CO2 32, BUN 65, creatinine 2.89, glucose 509. Her blood gas: pH 7.49, pCO2 39, pO2 279, bicarb 29 on 15% nonrebreather mask. Currently she is down to three liters nasal cannula. Her chest x-ray shows she has pulmonary venous congestion. PAST MEDICAL HISTORY: Her past medical history is significant for: 1. History of COPD. 2. Obstructive sleep apnea. 3. Lupus. 4. Diabetes mellitus. 5. Chronic kidney disease. 6. History of ankle surgery. MEDICATIONS: She is currently takin. Insulin, Levemir 20 units twice a day. 2. Bumex 2 milligrams twice a day. 3. Rocephin 1 gram a day. 4. Zithromax 500 milligrams a day. 5. Aspirin 81 milligrams a day. 6. Metolazone 5 milligrams daily. 7. Neurontin 300 milligrams a day. 8. DuoNeb one amp every four hours as needed. 9. Solu-Medrol 40 milligrams q. 12 hours. 10. Symbicort 160 / 4.5 two puffs twice a day. 11. Ferrous sulfate 325 milligrams twice a day. 12. Singulair 10 milligrams a day. 13. Tessalon 200 milligrams three times a day. ALLERGIES: NO KNOWN DRUG ALLERGIES. SOCIAL HISTORY: She is a , lives alone. 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 No history of smoking or alcohol use. FAMILY HISTORY: She has one daughter. REVIEW OF SYSTEMS: She is getting more short of breath, walks only a short distance had increased weight and increased swelling in her legs. No DVT or pulmonary embolism. No malignancy. PHYSICAL EXAMINATION: GENERAL: A morbidly obese female mild short of breath. VITAL SIGNS: Blood pressure 114/58, heart rate 96, respirations 16, temperature 96. HEAD, EYES, EARS, NOSE, THROAT: Pupils are equal and reactive to light. She has bilateral cataracts. Oral mucosa and nasal mucosa are normal. NECK: The neck is supple. JVP not raised. CHEST: Air entry equal bilaterally. She has a few basal rales. CARDIOVASCULAR: S1 and S2 normal. ABDOMEN: Abdomen benign. EXTREMITIES: No edema. IMPRESSION: 1. COPD with mild exacerbation. 2. Obstructive sleep apnea. 3. Congestive heart failure. 4. Diabetes mellitus. 5. Lupus. 6. Chronic kidney disease. PLAN: 1. Advised her to use C-PAP at nighttime. 2. Oxygen 3 liters nasal cannula. 3. She is being diuresed. 4. She is on IV Solu-Medrol. 5. Monitor her blood sugar closely. 6. Keep her saturation between 88 - 92%. Further treatment will depend on the course in the hospital. Thank you, Dr. Rodríguez, for this consult. MD WOO Gonzalez/JCC /7:10 PM /7:36 PM
[2016-07-08] MEDS: MONTELUKAST SODIUM 10 MG TAB PO SCH (21:18)
[2016-07-08] MEDS ORDERED: INSULIN DETEMIR 100 UNITS/ML VIAL SQ ONE (23:00)
[2016-07-09] VITALS (8 sets, daily range): BP systolic 109–121; BP diastolic 57–64; PULSE 82–91; RESP 16–20; TEMP 96.5–98.1; O2SAT 92–100
[2016-07-09] MEDS: RESP: ALBUTEROL 2.5 MG/IPRATROPIUM 0.5 MG NEB (SCH) INH ×6 (00:13→19:44)
[2016-07-09] MEDS: ACETAMINOPHEN/CODEINE 300 MG/30 MG TAB PO PRN ×3 (04:06→20:14)
[2016-07-09] MEDS: BENZONATATE 100 MG CAP PO PRN ×2 (04:06→11:41)
[2016-07-09 05:27] LABS: AUTOMATED NEUTROPHIL # 10.6 TH/MM3 (1.8-7.7); BASOPHIL % 0.2 % (0.0-2.0); EOSINOPHIL % 0.1 % (0.0-4.0); HEMATOCRIT 30.3 % (35.0-46.0); HEMO FLAGS DIFF FINAL; LYMPH % 5.1 % (9.0-44.0); LYMPHOCYTE # 0.6 TH/MM3 (1.0-4.8); MEAN CELL VOLUME 85.8 FL (80.0-100.0); MEAN CORPUSCULAR HEMOGLOBIN 27.8 PG (27.0-34.0); MEAN CORPUSCULAR HGB CONC 32.4 % (32.0-36.0); MONO % 4.4 % (0.0-8.0); NEUT % 90.2 % (16.0-70.0); PLATELET COUNT 319 TH/MM3 (150-450); RED BLOOD COUNT 3.53 MIL/MM3 (4.00-5.30); RED CELL DISTRIBUTION WIDTH 16.9 % (11.6-17.2); WHITE BLOOD COUNT 11.7 TH/MM3 (4.0-11.0)
[2016-07-09 05:53] LABS: BICARBONATE 32.6 MEQ/L (21.0-32.0); POTASSIUM 4.2 MEQ/L (3.5-5.1)
[2016-07-09] MEDS ORDERED: DEXTROSE 50% IN WATER 50 ML VIAL(D50) IV PUSH PRN (06:30)
[2016-07-09] MEDS ORDERED: GLUCAGON 1 MG/ML VIAL OTHER PRN (06:30)
[2016-07-09] MEDS: INSULIN ASPART SUPPLEMENTAL SCALE SQ SCH ×4 (06:46→20:20)
[2016-07-09] MEDS: METOLAZONE 5 MG TAB PO SCH (09:00)
--- NOTE | 2016-07-09 09:34 | HHI.FPPN ---
Subjective Remarks Pt seen and examined. Pulse ox has been stable, 92-100% on 4L NC. Overnight blood sugars were elevated to the 500s, Her insulin was increased to Levemir 40 units BID, Novolog 30 units TID and medium dose sliding scale. She reports that her breathing is improving. Endorses abdominal and chest pain which she attributes to coughing. 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 Dr. Larsen. The last time she saw him was on 05/23. The most recent visit note was requested. (Suzy Clark MD R2) Objective Vitals Vital Signs Date Time Temp Pulse Resp B/P Pulse Ox O2 Delivery O2 Flow Rate FiO2 07/09/16 08:07 96 Nasal Cannula 4.00 07/09/16 08:00 96.5 83 18 109/60 100 07/09/16 03:44 96 40 07/09/16 00:24 98 40 07/09/16 00:05 97.5 91 19 111/57 92 07/08/16 20:00 97.1 73 20 135/73 92 07/08/16 19:44 92 Nasal Cannula 4.00 07/08/16 16:00 96.6 95 16 114/58 91 07/08/16 12:45 18 07/08/16 12:00 97.2 93 16 111/61 92 I/O 07/08/16 07/08/16 07/08/16 07/09/16 07/09/16 07/09/16 07:00 15:00 23:00 07:00 15:00 23:00 Intake Total 240 ml 340 ml 240 ml 240 ml Output Total 2025 ml 600 ml 2200 ml 2500 ml Balance -1785 ml -260 ml -1960 ml -2260 ml Intake Oral 240 ml 240 ml 240 ml 240 ml IV Total 100 ml 0 ml 0 ml Output Urine Total 2025 ml 600 ml 2200 ml 2500 ml # Bowel Movements 0 0 0 0 (Suzy Clark MD R2) Result Diagram: 07/09/1644807/09/16448 Objective Remarks GENERAL: This is a well-nourished, well-developed patient, in no acute respiratory distress. CARDIOVASCULAR: Regular rate and rhythm without murmurs, gallops, or rubs. RESPIRATORY: Normal work of breathing. Mild crackles at lung bases, significantly improved. Pt wearing NC at 4L. GASTROINTESTINAL: Abdomen soft, non-tender, nondistended. No hepato-splenomegaly , or palpable masses. No guarding. MUSCULOSKELETAL: Trace pitting edema of bilateral lower extremities to mid calf. Extremities without clubbing, cyanosis. NEUROLOGICAL: Awake and alert. Cranial nerves II through XII intact. Motor and sensory grossly within normal limits. Normal speech. (Suzy Clark MD R2) A/P Assessment and Plan Pt is a 50 year old female with history of COPD, DM, HTN presenting due to COPD exacerbation. Discharge Planning Anticipate discharge once pts respiratory status has improved. (Suzy Clark MD R2) Attending Attestation Patient seen and examined. Case reviewed and discussed with the resident team. Agree with plan of care as discussed with me and documented in the resident note. (Noreen Rodríguez MD) Problem List: (1) Lupus Status: Acute Plan: Pt with very high URIEL in past and now ESR greater than 140 and CRP 14. She states she always feels better on steroids and worse off them. -Will continue to investigate what her exact diagnosis could be as she could have a primary vasculitis vs lupus related problem. -Respiratory and kidney issues may be attributable to Lupus -Will check C3, C4, DS antibody -She was previously on Plaquenil (2) COPD exacerbation Status: Acute Plan: Pt with history of COPD, currently presenting due to COPD exacerbation vs Lupus flare. At time of admission, WBC count 15.3, ABG while on nonrebreather mask at 15 L with ph of 7.49, PCO2 39, PO2 279, Oxygen saturation 97. See CXR below. Patient currently stable on nasal cannula 4 L. Pt reports that her breathing has been improving. -Soulmedrol 40mg IV Q12hrs, will probably need longer term steroids until she gets a definitive diagnosis and can have treatment -Rocephin IV -Azithromycin po -Duonebs Q4hrs -Albuterol Q2 hrs PRN SOB -Montelukast 10mg PO HS -Oxygen supplementation as needed. -BiPap/CPAP to be worn at night, she'll have bipap in the hospital -Patient reports that she no longer has a mobile lab technician to follow up with as an outpatient due to her insurance. -Pulmonology has been consulted, appreciate recommendations -Patient has a questionable history of sarcoidosis but this has never been confirmed. However, sarcoid can be treated with steroids Imaging: CXR 07/07: Pulmonary venous congestion versus early edema Mediations given in ED: Lasix 60 mg 1 DuoNeb 1 Vancomycin 1000 mg IV 1 Zosyn 4.5 g IV 1 (3) DM (diabetes mellitus) Status: Chronic Plan: Pt with history of DM. Home medications include Levemir 40 units BID, and Novalog SSI: 30 units with each meal. -Hemoglobin A1c 9.5 from 05/02/16 Insulin increased due to elevated blood sugar caused by IV steroids -Levemir 40 units BID -Novalog 30 units TIDAC -Continue to monitor blood glucose, will consider increasing Levemir if blood glucose remains elevated -Insulin medium dose sliding scale (4) CKD (chronic kidney disease) stage 3, GFR 30-59 ml/min Status: Acute Plan: Patient had CT-guided needle biopsy of right kidney on 08/01/15. 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 Interstitial fibrosis and tubular atrophy, severe. Arteriosclerosis, severe. - Monitor Is and Os - Monitor daily BMP - Nephrology has been consulted, appreciate recommendations - Will see if her renal fxn improves on steroids. she definitely has DM and HTN related renal disease but may now have superimposed vasculitic problem with her ESR of over 140 (5) FEN/PPX Status: Acute Plan: Electrolytes: Sodium WNL when corrected for elevated glucose, continue to monitor Nutrition: Diabetic Diet DVT PPX: Heparin GI PPX: Protonix Chronic conditions: Diabetic neuropathy -Gabapentin 400mg po TID for neuropathy, decreased due to renal function Anemia -Continue home Ferrous sulfate HTN -Bumex, pt previously on Amlodipine which can be resumed for elevated blood pressures (Suzy Clark MD R2) Problem Qualifiers (1) Lupus: Qualified Code: M32.13 - Systemic lupus erythematosus with lung involvement, unspecified SLE type (2) DM (diabetes mellitus): Qualified Code: E11.8 - Type 2 diabetes mellitus with complication, 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
--- NOTE | 2016-07-09 10:28 | HHI.NPPN ---
Subjective History of Present Illness 50-year-old female with a history of chronic kidney disease stage III. Previous kidney biopsy dated August 01, 2015 revealed evidence of diabetic nephropathy, glomerulosclerosis segmental and global, severe interstitial fibrosis and tubular atrophy which are poor prognostic indicators as far as preservation of renal function is concerned for the future. There is no evidence of active lupus at that time. Patient now presents with a history of increasing lower extremity edema and dyspnea. Chest x-ray showed evidence of pulmonary congestion. Shortness of breath has improved after the patient received a dose of parenteral diuretic. There is also a history of lupus with a positive URIEL test in the past. Uncertain if patient has seen a cement block maker. She was being followed by pulmonary unfortunately her usual car stower no longer accepts her insurance. She uses a CPAP at home. On presentation this admission creatinine was 3.34 and her glucose was 299. Blood pressure is also low initially at 89/55. Her pressures since improved. Creatinine level improved at time of consult to 2.89. Blood sugar still high on day of consultation at 509. Urinalysis showed no evidence of protein or microscopic hematuria. Interval History Pt feeling better today. Still some SOB, but improving. UOP very good. (Lucia Leon) Review of Systems Respiratory Lungs: SOB (Lucia Leon) Objective Data Data 07/08/16 07/09/16 19:00 07:00 Intake Total 340 ml 480 ml Output Total 600 ml 4700 ml Balance -260 ml -4220 ml Intake Oral 240 ml 480 ml IV Total 100 ml 0 ml Output Urine Total 600 ml 4700 ml # Bowel Movements 0 0 Vital Signs Date Time Temp Pulse Resp B/P Pulse Ox O2 Delivery O2 Flow Rate FiO2 07/09/16 08:07 96 Nasal Cannula 4.00 07/09/16 08:00 96.5 83 18 109/60 100 07/09/16 03:44 96 40 07/09/16 00:24 98 40 07/09/16 00:05 97.5 91 19 111/57 92 07/08/16 20:00 97.1 73 20 135/73 92 07/08/16 19:44 92 Nasal Cannula 4.00 07/08/16 16:00 96.6 95 16 114/58 91 07/08/16 12:45 18 07/08/16 12:00 97.2 93 16 111/61 92 (Lucia Leon) -: 07/09/16 0449 07/09/16 0449 Medication Review Current Medications Medications (Trade) Dose Ordered Sig/Iván Route Start Time Stop Time Status Last Admin (NS Flush) 2 ml UNSCH PRN IVF 07/07/16 17:00 (NS Flush) 2 ml BID IV FLUSH 07/07/16 21:00 07/08/16 21:19 (Heparin Inj) 5,000 units Q12H SQ 07/07/16 21:00 07/08/16 21:18 (SoluMEDROL INJ) 40 mg Q12HR IV PUSH 07/07/16 21:00 07/08/16 21:19 (Ventolin Hfa Inh) 2 puff Q4H PRN INH 07/07/16 22:00 (Ecotrin Ec) 81 mg DAILY PO 07/08/16 09:00 07/08/16 09:07 (Tessalon) 200 mg TID PRN PO 07/07/16 20:45 07/09/16 04:06 (Symbicort 160-4.5 Inh) 2 puff Q12HR INH 07/07/16 21:00 07/08/16 21:19 (Ferrous Sulfate) 325 mg BID PO 07/07/16 21:00 07/08/16 21:19 (Zaroxolyn) 5 mg DAILY PO 07/08/16 09:00 07/08/16 09:07 (Singulair) 10 mg HS PO 07/07/16 21:00 07/08/16 21:18 (Theragran M Tab) 1 tab DAILY PO 07/08/16 09:00 07/08/16 09:07 (Protonix) 40 mg DAILY PO 07/07/16 21:00 07/08/16 09:07 (Neurontin) 300 mg DAILY PO 07/08/16 09:00 07/08/16 09:07 (Tylenol) 650 mg Q4H PRN PO 07/07/16 21:00 (Zofran Inj) 4 mg Q6H PRN IV 07/07/16 21:00 (Galina-Colace) 1 tab BID PRN PO 07/07/16 21:00 (Tylenol-Codeine #3) 1 tab Q6H PRN PO 07/07/16 23:15 07/09/16 04:06 Azithromycin 500 mg 500 mg DAILY PO 07/08/16 11:00 07/08/16 11:38 (Rocephin Inj/NS Inj) 100 ml @ 200 mls/hr Q24H IV 07/08/16 12:00 07/08/16 11:38 (Bumex Inj) 2 mg BID@09,18 IV PUSH 07/08/16 18:00 07/08/16 17:55 (Levemir Inj) 40 units BID SQ 07/09/16 09:00 (NovoLOG INJ) 30 units TID SQ 07/09/16 09:00 (D50w (Vial) Inj) 25 ml UNSCH PRN IV PUSH 07/09/16 06:30 (Glucagon Inj) 1 mg UNSCH PRN OTHER 07/09/16 06:30 (Lucia Leon) Physical Exam General Appearance: No Acute Distress (Lucia Leon) Eyes Eye Exam: Pupils Equal, Pupils Reactive (Lucia Leon) Throat Throat Exam: Oral Mucosa [place] & Moist (Lucia Leon) Neck Neck Exam: Neck Supple, Trachea Midline (Lucia Leon) Pulmonary Resp Exam: Crackles Resp Remarks bilat bases (Lucia Leon) Cardiology CV Exam: Regular, Normal Sinus Rhythm (Lucia Leon) Gastrointestinal/Abdomen GI Exam: Soft, Non-Tender (Lucia Leon) Integumentary Skin Exam: Clear, Warm (Lucia Leon) Extremeties Extremities Exam: Moderate Edema Extremeties Remarks 1+ pitting edema BLE up to knees (Lucia Leon) Neurologic Neuro Exam: Alert, Awake, Oriented (Lucia Leon) Psychiatric Psych Exam: Appropriate Responses (Lucia Leon) Assessment/Plan Problem List: (1) Acute renal failure Plan: There is no evidence of previous lupus nephritis on a kidney biopsy performed August 01, 2015. Current urinalysis does not seem to suggest worsening proteinuria or microscopic hematuria that would be indicative of nephritis. Suspect acute renal insufficiency is related to hemodynamic factors i.e. cardiac decompensation and hypotension on presentation. There may have been some intravascular volume depletion related to hyperglycemia also. Continue to monitor renal function. (2) CKD (chronic kidney disease) stage 3, GFR 30-59 ml/min Plan: Biopsy confirmed diabetic nephropathy as well as glomerulosclerosis previously. Baseline creatinine about 1.5. (3) CHF (congestive heart failure) Plan: Echo report pending Continue IV Bumex 2g q12h as ordered Continue to monitor I&Os (4) Acute exacerbation of chronic obstructive pulmonary disease Plan: Management per primary care physician. (5) Anemia Plan: Fe studies pending (6) Diabetic nephropathy Plan: Biopsy confirmed with evidence of severe interstitial fibrosis and tubular atrophy. (Lucia Leon) Plan Patient's renal function is improving. Urinalysis was bland this admission previous renal biopsy showed no evidence of lupus nephritis or any other active glomerulonephritis. I do not believe that this patient has active nephritis at this point given bland urinalysis and improvement with diuresis regardless whether or not patient has active collagen vascular disease at this time. I have no plans to repeat a kidney biopsy based . Renal function most likely improving secondary to improving hemodynamic status i.e. treatment of CHF and volume status. (Izabel Day MD) Lucia Leon Jul 09, 2016 10:28 Izabel Day MD Jul 10, 2016 10:36
[2016-07-09] MEDS: INSULIN ASPART 1,000 UNITS/10 ML VIAL SQ SCH ×3 (11:39→17:54)
[2016-07-09] MEDS: INSULIN DETEMIR 100 UNITS/ML VIAL SQ SCH ×2 (11:40→20:20)
[2016-07-09] MEDS: methylPREDNISolone SOD SUCC 40 MG/1 ML VIAL IV PUSH SCH ×2 (11:41→20:09)
[2016-07-09] MEDS: PANTOPRAZOLE SOD 40 MG DELAYED RELEASE TAB PO SCH (11:41)
[2016-07-09] MEDS: FERROUS SULFATE 325 MG (65 MG ELEMENTAL IRON) TAB PO SCH ×2 (11:41→20:09)
[2016-07-09] MEDS: MULTIVITAMINS/MINERALS THERAPEUTIC TAB PO SCH (11:42)
[2016-07-09] MEDS: AZITHROMYCIN 250 MG TAB PO SCH (11:42)
[2016-07-09] MEDS: GABAPENTIN 300 MG CAP PO SCH (11:42)
[2016-07-09] MEDS: ASPIRIN EC 81 MG TABEC PO SCH (11:42)
[2016-07-09] MEDS: HEPARIN SODIUM - SQ 10,000 UNITS/ML VIAL SQ SCH ×2 (11:43→20:09)
[2016-07-09] MEDS: BUDESONIDE-FORMOTEROL 160/4.5 MCG INHALER INH SCH ×2 (11:43→20:08)
[2016-07-09] MEDS: cefTRIAXone INJ 2,000 MG in SODIUM CHLORIDE 0.9% INJ 100 ML IV SCH (11:43)
[2016-07-09] MEDS: BUMETANIDE INJ 1 MG/4 ML VIAL IV PUSH SCH ×2 (11:44→17:54)
[2016-07-09] MEDS: SODIUM CHLORIDE 0.9% FLUSH 10 ML FLUSH IV FLUSH SCH ×2 (11:44→20:08)
--- NOTE | 2016-07-09 15:18 | ECHLIM ---
Study Study Date:07/09/2016 STUDY CONCLUSIONS SUMMARY - Left ventricle: The cavity size was normal. Wall thickness was normal. Systolic function was normal. The estimated ejection fraction was in the range of 55% to 60%. Wall motion was normal; there were no regional wall motion abnormalities. - Aortic valve: Valve area: 2.46cm^2(VTI). Valve area: 2.58cm^2 (Vmax). - Right ventricle: The cavity size was moderately dilated. Wall thickness was normal. - Tricuspid valve: Mild-moderate regurgitation. - Pulmonary arteries: PA peak pressure: 70mm Hg (S). - Pericardium, extracardiac: There was no pericardial effusion. If LV function is below 40, please consider prescribing an ACEI or ARB or document rationale for non-use. PROCEDURE DATA STUDY STATUS: Elective. Procedure: Transthoracic echocardiography. Image quality was good. Scanning was performed from the parasternal, apical, and subcostal acoustic windows. Study completion: The patient tolerated the procedure well. Transthoracic echocardiography. M-mode, complete 2D, complete spectral Doppler, and color Doppler. Height: Height: 68in. Weight: Weight: 245.5lb. Body mass index: BMI: 37.4kg/m^2. Body surface area: BSA: 2.23m^2. Patient status: Inpatient. CARDIAC ANATOMY LEFT VENTRICLE: The cavity size was normal. Wall thickness was normal. Systolic function was normal. The estimated ejection fraction was in the range of 55% to 60%. Wall motion was normal; there were no regional wall motion abnormalities. AORTIC VALVE: Trileaflet; normal thickness leaflets. Doppler: Transvalvular velocity was within the normal range. There was no stenosis. No regurgitation. Valve area: 2.46cm^2(VTI). Indexed valve area: 1.1cm^2/m^2 (VTI). Valve area: 2.58cm^2 (Vmax). Indexed valve area: 1.16cm^2/m^2 (Vmax). Mean gradient: 4mm Hg (S). AORTA: Aortic root: The aortic root was normal in size. MITRAL VALVE: Structurally normal valve. Doppler: Transvalvular velocity was within the normal range. There was no evidence for stenosis. No regurgitation. Peak gradient: 3mm Hg (D). LEFT ATRIUM: The atrium was normal in size. RIGHT VENTRICLE: The cavity size was moderately dilated. Wall thickness was normal. PULMONIC VALVE: Doppler: Transvalvular velocity was within the normal range. There was no evidence for stenosis. No regurgitation. TRICUSPID VALVE: Structurally normal valve. Doppler: Transvalvular velocity was within the normal range. Mild-moderate regurgitation. PULMONARY ARTERY: The main pulmonary artery was normal-sized. Systolic pressure was within the normal range. RIGHT ATRIUM: The atrium was normal in size. PERICARDIUM: There was no pericardial effusion. SYSTEMIC VEINS: Inferior vena cava: The vessel was normal in size. Patient weight: 245.5lb _Ejection fraction:_ 65-75% _Fractional shortening:_ 32% up to 5Kg 5-11.5Kg 11.6-22.9Kg 23-45Kg 45-57Kg Aortic Root 7-13 <17 13-22 17-27 17-27 LA diam 6-13 <23 24-38 33-47 37-40 RVID 10-17 7-15 7-15 7-18 8-17 LVIDd 12-22 <32 24-38 33-47 37-40 LVPW 2-4 3-6 5-7 6-8 7-8 IVS 2-4 3-6 5-7 6-8 7-8 BASIC MEASUREMENTS ADULT NORMAL Left ventricle LV internal dimension, ED, chordal 47.1 mm 43-52 level, PLAX LV internal dimension, ES, chordal 34.1 mm 23-38 level, PLAX Fractional shortening, chordal level, *28 % >29 PLAX LV posterior wall thickness, ED 8.56 mm IVS/LVPW ratio, ED 0.96 <1.3 Ventricular septum Septal thickness, ED 8.2 mm Aortic valve Leaflet separation 21 mm 15-26 Aorta Root diameter, ED 25 mm Left atrium Anterior-posterior dimension 30 mm Anterior-posterior dimension index 1.35 cm/m^2 <2.2 Right ventricle RV internal dimension, ED, PLAX 32.2 mm 19-38 BASIC MEASUREMENTS ADULT NORMAL Aortic valve Leaflet separation 21 mm 15-26 DOPPLER MEASUREMENTS ADULT NORMAL Main pulmonary artery Pressure, S *70 mm Hg =30 Aortic valve Peak velocity, S 145 cm/s Mean velocity, S 94.4 cm/s VTI, S 28.8 cm Mean gradient, S 4 mm Hg Valve area, VTI 2.46 cm^2 Valve area index, VTI 1.1 cm^2/m^2 Valve area, Vmax 2.58 cm^2 Valve area index, Vmax 1.16 cm^2/m^2 Mitral valve Peak E-wave velocity 80 cm/s Peak A-wave velocity 82.9 cm/s Deceleration time 183 ms 150-230 Peak gradient, D 3 mm Hg Peak E/A ratio 1 Tricuspid valve Regurgitant peak velocity 396 cm/s Peak RV-RA gradient, S 63 mm Hg Maximal regurgitant velocity 396 cm/s Systemic veins Estimated CVP 10 mm Hg Right ventricle RV pressure, S *73 mm Hg <30 Pulmonic valve Peak velocity, S 79.7 cm/s LEGEND: Mean values are shown as u=mean value. Asterisk (*) marrero values outside specified normal range. Prepared and signed by Giovanny Clark [id number]
--- NOTE | 2016-07-09 19:55 | HHI.PR ---
Subjective Remarks 50 YO AA female with COPD,DM,YOJANA feels better Uses CPAP at night Wheezing improved no CP Objective Vital Signs Vital Signs Date Time Temp Pulse Resp B/P Pulse Ox O2 Delivery O2 Flow Rate FiO2 07/09/16 19:44 98 Nasal Cannula 4.00 07/09/16 12:00 98.1 82 16 121/64 96 07/09/16 08:07 96 Nasal Cannula 4.00 07/09/16 08:00 96.5 83 18 109/60 100 07/09/16 03:44 96 40 07/09/16 00:24 98 40 07/09/16 00:05 97.5 91 19 111/57 92 07/08/16 20:00 97.1 73 20 135/73 92 I/O 07/08/16 07/08/16 07/08/16 07/09/16 07/09/16 07/09/16 07:00 15:00 23:00 07:00 15:00 23:00 Intake Total 240 ml 340 ml 240 ml 240 ml Output Total 2025 ml 600 ml 2200 ml 2500 ml 1400 ml Balance -1785 ml -260 ml -1960 ml -2260 ml -1400 ml Intake Oral 240 ml 240 ml 240 ml 240 ml IV Total 100 ml 0 ml 0 ml Output Urine Total 2025 ml 600 ml 2200 ml 2500 ml 1400 ml # Voids 5 # Bowel Movements 0 0 0 0 Result Diagram: 07/09/1644807/09/16448 Objective Remarks GENERAL: WBWN female,NAD SKIN: Warm and dry. HEAD: Normocephalic. EYES: No scleral icterus. No injection or drainage. NECK: Supple, trachea midline. No JVD or lymphadenopathy. CARDIOVASCULAR: Regular rate and rhythm without murmurs, gallops, or rubs. RESPIRATORY: Breath sounds equal bilaterally. No accessory muscle use. GASTROINTESTINAL: Abdomen soft, non-tender, nondistended. MUSCULOSKELETAL: No cyanosis, or edema. BACK: Nontender without obvious deformity. No CVA tenderness. A/P Assessment and Plan COPD exac improving YOJANA bronchitis DM Lupus CKD PLAN: Solumedrol 40 mg q 12 hrs Aerosol nebs Supplement 02 to keep sat >90% cont abx CPAP at night Dez Millan MD Jul 09, 2016 19:55
[2016-07-09] MEDS: MONTELUKAST SODIUM 10 MG TAB PO SCH (20:09)
[2016-07-10] VITALS (9 sets, daily range): BP systolic 106–133; BP diastolic 56–79; PULSE 83–97; RESP 16–18; TEMP 96.6–97.4; O2SAT 96–100
[2016-07-10] MEDS: RESP: ALBUTEROL 2.5 MG/IPRATROPIUM 0.5 MG NEB (SCH) INH ×6 (01:39→20:55)
[2016-07-10] MEDS: ACETAMINOPHEN/CODEINE 300 MG/30 MG TAB PO PRN ×3 (02:12→16:50)
[2016-07-10] MEDS: INSULIN ASPART SUPPLEMENTAL SCALE SQ SCH ×4 (05:29→20:59)
[2016-07-10 05:49] LABS: AUTOMATED NEUTROPHIL # 12.1 TH/MM3 (1.8-7.7); BASOPHIL % 0.2 % (0.0-2.0); EOSINOPHIL % 0.1 % (0.0-4.0); HEMATOCRIT 32.1 % (35.0-46.0); HEMO FLAGS DIFF FINAL; LYMPH % 5.5 % (9.0-44.0); LYMPHOCYTE # 0.7 TH/MM3 (1.0-4.8); MEAN CELL VOLUME 84.9 FL (80.0-100.0); MEAN CORPUSCULAR HEMOGLOBIN 28.2 PG (27.0-34.0); MEAN CORPUSCULAR HGB CONC 33.2 % (32.0-36.0); MONO % 4.7 % (0.0-8.0); NEUT % 89.5 % (16.0-70.0); PLATELET COUNT 315 TH/MM3 (150-450); RED BLOOD COUNT 3.78 MIL/MM3 (4.00-5.30); RED CELL DISTRIBUTION WIDTH 16.8 % (11.6-17.2); WHITE BLOOD COUNT 13.6 TH/MM3 (4.0-11.0)
[2016-07-10 06:09] LABS: BICARBONATE 29.8 MEQ/L (21.0-32.0); POTASSIUM 3.8 MEQ/L (3.5-5.1)
[2016-07-10] MEDS: BUMETANIDE INJ 1 MG/4 ML VIAL IV PUSH SCH ×2 (08:07→16:50)
[2016-07-10] MEDS: MULTIVITAMINS/MINERALS THERAPEUTIC TAB PO SCH (08:10)
[2016-07-10] MEDS: PANTOPRAZOLE SOD 40 MG DELAYED RELEASE TAB PO SCH (08:11)
[2016-07-10] MEDS: HEPARIN SODIUM - SQ 10,000 UNITS/ML VIAL SQ SCH ×2 (08:11→20:48)
[2016-07-10] MEDS: ASPIRIN EC 81 MG TABEC PO SCH (08:11)
[2016-07-10] MEDS: GABAPENTIN 300 MG CAP PO SCH (08:11)
[2016-07-10] MEDS: AZITHROMYCIN 250 MG TAB PO SCH (08:12)
[2016-07-10] MEDS: INSULIN ASPART 1,000 UNITS/10 ML VIAL SQ SCH ×3 (08:12→16:51)
[2016-07-10] MEDS: METOLAZONE 5 MG TAB PO SCH (08:12)
[2016-07-10] MEDS: methylPREDNISolone SOD SUCC 40 MG/1 ML VIAL IV PUSH SCH (08:13)
[2016-07-10] MEDS: INSULIN DETEMIR 100 UNITS/ML VIAL SQ SCH ×2 (08:13→20:57)
[2016-07-10] MEDS: SODIUM CHLORIDE 0.9% FLUSH 10 ML FLUSH IV FLUSH SCH ×2 (08:13→20:50)
[2016-07-10] MEDS: FERROUS SULFATE 325 MG (65 MG ELEMENTAL IRON) TAB PO SCH ×2 (08:16→20:48)
[2016-07-10] MEDS: BUDESONIDE-FORMOTEROL 160/4.5 MCG INHALER INH SCH ×2 (08:29→20:50)
--- NOTE | 2016-07-10 10:25 | HHI.FPPN ---
Subjective Remarks Ms See is feeling better everyday. Her breathing continues to improve with 99% O2 sats on 4 liters. Her edema is improving in her legs daily. Her aches in her muscles and joints are improved as well Objective Vitals Vital Signs Date Time Temp Pulse Resp B/P Pulse Ox O2 Delivery O2 Flow Rate FiO2 07/10/16 08:40 96 Nasal Cannula 4.00 07/10/16 08:00 96.9 83 17 113/61 100 07/10/16 05:34 99 40 07/10/16 03:12 20 07/10/16 01:53 98 40 07/10/16 00:00 97.0 86 18 106/56 98 07/09/16 20:00 97.3 89 20 115/64 96 07/09/16 19:44 98 Nasal Cannula 4.00 07/09/16 12:00 98.1 82 16 121/64 96 I/O 07/09/16 07/09/16 07/09/16 07/10/16 07/10/16 07/10/16 07:00 15:00 23:00 07:00 15:00 23:00 Intake Total 240 ml 480 ml 240 ml Output Total 2500 ml 1400 ml 400 ml Balance -2260 ml -1400 ml 480 ml -160 ml Intake Oral 240 ml 480 ml 240 ml IV Total 0 ml Output Urine Total 2500 ml 1400 ml 400 ml # Voids 5 1 # Bowel Movements 0 0 0 Result Diagram: 07/10/16 0515 07/10/1615 Objective Remarks GENERAL: This is a well-nourished, well-developed patient, in no acute respiratory distress. CARDIOVASCULAR: Regular rate and rhythm without murmurs, gallops, or rubs. RESPIRATORY: Normal work of breathing. Mild crackles at lung bases, still present. Pt wearing NC at 4L. GASTROINTESTINAL: Abdomen soft, non-tender, nondistended. No hepato-splenomegaly , or palpable masses. No guarding. MUSCULOSKELETAL: Trace pitting edema of bilateral lower extremities to mid calf. Extremities without clubbing, cyanosis. NEUROLOGICAL: Awake and alert. Cranial nerves II through XII intact. Motor and sensory grossly within normal limits. Normal speech. Urinary Catheter: No Vascular Central Line Catheter: No A/P Assessment and Plan Pt is a 50 year old female with history of COPD, DM, HTN presenting due to COPD exacerbation. Discharge Planning Anticipate discharge once pts respiratory and renal status has improved. Problem List: (1) Lupus Status: Acute Plan: Pt with very high URIEL in past and now ESR greater than 140 and CRP 14. She states she always feels better on steroids and worse off them. -Will continue to investigate what her exact diagnosis could be as she could have a primary vasculitis vs lupus related problem but she has a diagnosis of lupus for years at times active and at times in remission -Respiratory and kidney issues may be attributable to Lupus -Will check C3, C4, DS antibody -She was previously on Plaquenil unclear when this was stopped (2) COPD exacerbation Status: Acute Plan: Pt with history of COPD, currently presenting due to COPD exacerbation vs Lupus flare. At time of admission, WBC count 15.3, ABG while on nonrebreather mask at 15 L with ph of 7.49, PCO2 39, PO2 279, Oxygen saturation 97. See CXR below. Patient currently stable on nasal cannula 4 L. Pt reports that her breathing has been improving. 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 -BiPap/CPAP to be worn at night, she'll have bipap in the hospital -Patient reports that she no longer has a marketing intern to follow up with as an outpatient due to her insurance. -Pulmonology has been consulted, appreciate recommendations -Patient has a questionable history of sarcoidosis but this has never been confirmed. However, sarcoid can be treated with steroids and her CXR looks better Imaging: CXR 07/07: Pulmonary venous congestion versus early edema Mediations given in ED: Lasix 60 mg 1 DuoNeb 1 Vancomycin 1000 mg IV 1 Zosyn 4.5 g IV 1 (3) DM (diabetes mellitus) Status: Chronic Plan: Pt with history of DM. Home medications include Levemir 40 units BID, and Novalog SSI: 30 units with each meal. -Hemoglobin A1c 9.5 from 05/02/16 Insulin increased due to elevated blood sugar caused by IV steroids -Levemir 40 units BID -Novalog 30 units TIDAC -Continue to monitor blood glucose, will consider increasing Levemir if blood glucose remains elevated -Insulin medium dose sliding scal- her glucoses were extremely high but have come down into the 200s at best today (4) CKD (chronic kidney disease) stage 3, GFR 30-59 ml/min Status: Acute Plan: Patient had CT-guided needle biopsy of right kidney on 08/01/15. 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 Interstitial fibrosis and tubular atrophy, severe. Arteriosclerosis, severe. - Monitor Is and Os - Monitor daily BMP - Nephrology has been consulted, appreciate recommendations - her renal fxn continues to improve on steroids. she definitely has DM and HTN related renal disease but may now have superimposed vasculitic problem with her ESR of over 140 (5) FEN/PPX Status: Acute Plan: Electrolytes: Sodium WNL when corrected for elevated glucose, continue to monitor Nutrition: Diabetic Diet DVT PPX: Heparin GI PPX: Protonix Chronic conditions: Diabetic neuropathy -Gabapentin 400mg po TID for neuropathy, decreased due to renal function Anemia -Continue home Ferrous sulfate HTN -Bumex, pt previously on Amlodipine which can be resumed for elevated blood pressures Problem Qualifiers (1) Lupus: Qualified Code: M32.13 - Systemic lupus erythematosus with lung involvement, unspecified SLE type (2) DM (diabetes mellitus): Qualified Code: E11.8 - Type 2 diabetes mellitus with complication, unspecified longterm insulin use status Noreen Rodríguez MD Jul 10, 2016 10:25
--- NOTE | 2016-07-10 11:45 | HHI.NPPN ---
Subjective History of Present Illness 50-year-old female with a history of chronic kidney disease stage III. Previous kidney biopsy dated August 01, 2015 revealed evidence of diabetic nephropathy, glomerulosclerosis segmental and global, severe interstitial fibrosis and tubular atrophy which are poor prognostic indicators as far as preservation of renal function is concerned for the future. There is no evidence of active lupus at that time. Patient now presents with a history of increasing lower extremity edema and dyspnea. Chest x-ray showed evidence of pulmonary congestion. Shortness of breath has improved after the patient received a dose of parenteral diuretic. There is also a history of lupus with a positive URIEL test in the past. Uncertain if patient has seen a rooming house inspector. She was being followed by pulmonary unfortunately her usual cage operator no longer accepts her insurance. She uses a CPAP at home. On presentation this admission creatinine was 3.34 and her glucose was 299. Blood pressure is also low initially at 89/55. Her pressures since improved. Creatinine level improved at time of consult to 2.89. Blood sugar still high on day of consultation at 509. Urinalysis showed no evidence of protein or microscopic hematuria. Interval History Patient feeling clinically improved./Shortness of breath and lower extremity edema much less. Review of Systems Respiratory Lungs: SOB Cardiovascular Cardiac: Edema Objective Data Data 07/09/16 07/10/16 19:00 07:00 Intake Total 720 ml Output Total 1400 ml 400 ml Balance -1400 ml 320 ml Intake Oral 720 ml Output Urine Total 1400 ml 400 ml # Voids 5 1 # Bowel Movements 0 Vital Signs Date Time Temp Pulse Resp B/P Pulse Ox O2 Delivery O2 Flow Rate FiO2 07/10/16 08:40 96 Nasal Cannula 4.00 07/10/16 08:00 96.9 83 17 113/61 100 07/10/16 05:34 99 40 07/10/16 03:12 20 07/10/16 01:53 98 40 07/10/16 00:00 97.0 86 18 106/56 98 07/09/16 20:00 97.3 89 20 115/64 96 07/09/16 19:44 98 Nasal Cannula 4.00 07/09/16 12:00 98.1 82 16 121/64 96 -: 07/10/16 0515 07/10/16 0515 Medication Review Current Medications Sodium Chloride (NS Flush) 2 ml UNSCH PRN IVF FLUSH AFTER USING IV ACCESS; Start 07/07/16 at 17:00 Albuterol/ Ipratropium (Duoneb Neb) 1 ampule Q15M INH Last administered on 17:09; Start 07/07/16 at 17:00; Stop 07/07/16 at 17:16; Status DC Furosemide 60 mg 60 mg ONCE ONCE IV PUSH Last administered on 07/07/16 18:22; Start 07/07/16 at 18:00; Stop 07/07/16 at 18:01; Status DC Piperacillin Sod/ Tazobactam Sod 100 ml @ 200 mls/hr ONCE ONCE IV Last administered on 07/07/16 21:53; Start 07/07/16 at 18:15; Stop 07/07/16 at 18:44; Status DC Vancomycin HCl/ Sodium Chloride (Vancomycin Inj/ NS 250 ml Inj) 250 ml @ 250 mls/hr ONCE ONCE IV Last administered on 07/07/16 18:23; Start 07/07/16 at 18: 15; Stop 07/07/16 at 19:14; Status DC Sodium Chloride (NS Flush) 2 ml BID IV FLUSH Last administered on 07/10/16 08: 13; Start 07/07/16 at 21:00 Albuterol/ Ipratropium (Duoneb Neb) 1 ampule Q4HR NEB INH Last administered on 07/10/16 08:38; Start 07/08/16 at 00:00 Albuterol Sulfate (Albuterol Neb) 2.5 mg Q2HR NEB PRN INH SHORTNESS OF BREATH; Start 07/07/16 at 21:00 Heparin Sodium (Porcine) (Heparin Inj) 5,000 units Q12H SQ Last administered on 07/10/16 08:11; Start 07/07/16 at 21:00 Methylprednisolone Sodium Succinate (SoluMEDROL INJ) 40 mg Q12HR IV PUSH Last administered on 07/10/16 08:13; Start 07/07/16 at 21:00 Albuterol Sulfate (Ventolin Hfa Inh) 2 puff Q4H PRN INH SHORTNESS OF BREATH; Start 07/07/16 at 22:00 Amoxicillin (Trimox) 500 mg Q6HR PO Last administered on 07/08/16 05:37; Start 07/08/16 at 00:00; Stop 07/08/16 at 10:01; Status DC Aspirin (Ecotrin Ec) 81 mg DAILY PO Last administered on 07/10/16 08:11; Start 07/08/16 at 09:00 Benzonatate (Tessalon) 200 mg TID PRN PO cough Last administered on 07/09/16 11:41; Start 07/07/16 at 20:45 Budesonide/ Formoterol Fumarate (Symbicort 160-4.5 Inh) 2 puff Q12HR INH Last administered on 07/10/16 08:29; Start 07/07/16 at 21:00 Bumetanide (Bumetanide) 2 mg BID PO Last administered on 07/08/16 09:08; Start 07/07/16 at 21:00; Stop 07/08/16 at 15:31; Status DC Ferrous Sulfate (Ferrous Sulfate) 325 mg BID PO Last administered on 07/10/16 08:16; Start 07/07/16 at 21:00 Metolazone (Zaroxolyn) 5 mg DAILY PO Last administered on 07/10/16 08:12; Start 07/08/16 at 09:00 Montelukast Sodium (Singulair) 10 mg HS PO Last administered on 07/09/16 20:09 ; Start 07/07/16 at 21:00 Multivitamins/ Minerals Therapeutic (Theragran M Tab) 1 tab DAILY PO Last administered on 07/10/16 08:10; Start 07/08/16 at 09:00 Insulin Aspart (NovoLOG INJ) 20 units BID@08,17 SQ Last administered on 07:24; Start 07/08/16 at 08:00; Stop 07/08/16 at 13:22; Status DC Insulin Detemir (Levemir Inj) 10 units TIDAC SQ Last administered on 07/08/16 07:22; Start 07/08/16 at 08:00; Stop 07/08/16 at 10:01; Status DC Dextrose (D50w (Vial) Inj) 25 ml UNSCH PRN IV PUSH HYPOGLYCEMIA-SEE COMMENTS; Start 07/07/16 at 21:00; Stop 07/09/16 at 06:28; Status DC Glucagon (Glucagon Inj) 1 mg UNSCH PRN OTHER HYPOGLYCEMIA-SEE COMMENTS; Start 07/07/16 at 21:00; Stop 07/09/16 at 06:28; Status DC Insulin Aspart (NovoLOG SUPPLEMENTAL SCALE) 1 ACHS SLIDING SCALE SQ Last administered on 07/08/16 21:20; Start 07/07/16 at 21:00; Stop 07/09/16 at 06:28; Status DC Pantoprazole Sodium (Protonix) 40 mg DAILY PO Last administered on 07/10/16 08 :11; Start 07/07/16 at 21:00 Gabapentin (Neurontin) 300 mg DAILY PO Last administered on 07/10/16 08:11; Start 07/08/16 at 09:00 Acetaminophen (Tylenol) 650 mg Q4H PRN PO Temp > 100.4; Start 07/07/16 at 21:00 Ondansetron HCl (Zofran Inj) 4 mg Q6H PRN IV NAUSEA; Start 07/07/16 at 21:00 Senna/Docusate Sodium (Galina-Colace) 1 tab BID PRN PO CONSTIPATION; Start at 21:00 Acetaminophen/ Codeine Phosphate (Tylenol-Codeine #3) 1 tab Q6H PRN PO PAIN SCALE 6 TO 10 Last administered on 07/10/16 08:10; Start 07/07/16 at 23:15 Pneumococcal Polyvalent Vaccine (Pneumovax-23 Inj) 25 mcg ONCE ONCE IM ; Start 07/08/16 at 10:00; Stop 07/08/16 at 10:01; Status DC Insulin Detemir (Levemir Inj) 15 units BID SQ ; Start 07/08/16 at 21:00; Stop 07/08/16 at 21:00; Status DC Azithromycin 500 mg 500 mg DAILY PO Last administered on 07/10/16 08:12; Start 07/08/16 at 11:00 Ceftriaxone Sodium/Sodium Chloride (Rocephin Inj/NS Inj) 100 ml @ 200 mls/hr Q24H IV Last administered on 07/09/16 11:43; Start 07/08/16 at 12:00 Insulin Aspart (NovoLOG INJ) 20 units TID SQ Last administered on 07/08/16 17: 54; Start 07/08/16 at 18:00; Stop 07/09/16 at 06:28; Status DC Insulin Detemir (Levemir Inj) 20 units BID SQ Last administered on 07/08/16 21: 18; Start 07/08/16 at 21:00; Stop 07/08/16 at 23:14; Status DC Bumetanide (Bumex Inj) 2 mg BID@,18 IV PUSH Last administered on 07/10/16 08 :07; Start 07/08/16 at 18:00 Insulin Aspart (NovoLOG INJ) 10 units ONCE ONCE SQ Last administered on 16:16; Start 07/08/16 at 17:00; Stop 07/08/16 at 17:01; Status DC Insulin Aspart (NovoLOG INJ) 25 units ONCE ONCE SQ Last administered on 18:54; Start 07/08/16 at 19:00; Stop 07/08/16 at 19:01; Status DC Insulin Detemir (Levemir Inj) 20 units NOW ONCE SQ Last administered on 22:55; Start 07/08/16 at 23:00; Stop 07/08/16 at 23:01; Status DC Insulin Detemir (Levemir Inj) 40 units BID SQ Last administered on 07/10/16 08 :13; Start 07/09/16 at 09:00 Insulin Aspart (NovoLOG INJ) 30 units TID SQ Last administered on 07/10/16 08: 12; Start 07/09/16 at 09:00 Dextrose (D50w (Vial) Inj) 25 ml UNSCH PRN IV PUSH HYPOGLYCEMIA-SEE COMMENTS; Start 07/09/16 at 06:30 Glucagon (Glucagon Inj) 1 mg UNSCH PRN OTHER HYPOGLYCEMIA-SEE COMMENTS; Start 07/09/16 at 06:30 Insulin Aspart (NovoLOG SUPPLEMENTAL SCALE) 1 ACHS SLIDING SCALE SQ Last administered on 07/10/16 05:29; Start 07/09/16 at 07:00 Physical Exam General Appearance: No Acute Distress Eyes Eye Exam: Pupils Equal, Pupils Reactive Throat Throat Exam: Oral Mucosa [place] & Moist Neck Neck Exam: Neck Supple, Trachea Midline Pulmonary Resp Exam: Crackles Cardiology CV Exam: Regular, Normal Sinus Rhythm Gastrointestinal/Abdomen GI Exam: Soft, Non-Tender Integumentary Skin Exam: Clear, Warm Extremeties Extremities Exam: Moderate Edema (one plus pitting edema legs.) Neurologic Neuro Exam: Alert, Awake, Oriented Psychiatric Psych Exam: Appropriate Responses Assessment/Plan Problem List: (1) Acute renal failure Plan: There is no evidence of previous lupus nephritis on a kidney biopsy performed August 01, 2015. Current urinalysis does not seem to suggest worsening proteinuria or microscopic hematuria that would be indicative of nephritis. Also the patient's renal indices are improving fairly rapidly which is more consistent with hemodynamic etiology i.e. cardiac decompensation and congestive heart failure. Would not expect established lupus nephritis to improve this quickly. Although the patient may have SLE I see no clinical indication to consider a kidney biopsy as lupus nephritis is not a primary consideration at this time. Risk-benefit ratio does not justify same. Continue diuresis. Recommend follow-up post discharge with rheumatology. (2) CKD (chronic kidney disease) stage 3, GFR 30-59 ml/min Plan: Biopsy confirmed diabetic nephropathy as well as glomerulosclerosis previously. Baseline creatinine about 1.5. (3) CHF (congestive heart failure) Plan: Echo report pending Continue IV Bumex 2g q12h as ordered Continue to monitor I&Os (4) Acute exacerbation of chronic obstructive pulmonary disease Plan: Management per primary care physician. (5) Anemia Plan: Fe studies pending (6) Diabetic nephropathy Plan: Biopsy confirmed with evidence of severe interstitial fibrosis and tubular atrophy. Plan Patient's renal function is improving. Urinalysis was bland this admission previous renal biopsy showed no evidence of lupus nephritis or any other active glomerulonephritis. I do not believe that this patient has active nephritis at this point given bland urinalysis and improvement with diuresis regardless whether or not patient has active collagen vascular disease at this time. I have no plans to repeat a kidney biopsy based . Renal function most likely improving secondary to improving hemodynamic status i.e. treatment of CHF and volume status. Izabel Day MD Jul 10, 2016 11:45
[2016-07-10] MEDS: cefTRIAXone INJ 2,000 MG in SODIUM CHLORIDE 0.9% INJ 100 ML IV SCH (11:59)
--- NOTE | 2016-07-10 18:28 | HHI.PR ---
Subjective Remarks 50 YO AA female with COPD,DM,YOJANA feels better Uses CPAP at night Wheezing improved no CP Breathing better BS still high Objective Vital Signs Vital Signs Date Time Temp Pulse Resp B/P Pulse Ox O2 Delivery O2 Flow Rate FiO2 07/10/16 16:00 97.4 97 16 133/79 97 07/10/16 12:00 96.9 95 18 121/63 97 07/10/16 08:40 96 Nasal Cannula 4.00 07/10/16 08:00 96.9 83 17 113/61 100 07/10/16 05:34 99 40 07/10/16 03:12 20 07/10/16 01:53 98 40 07/10/16 00:00 97.0 86 18 106/56 98 07/09/16 20:00 97.3 89 20 115/64 96 07/09/16 19:44 98 Nasal Cannula 4.00 I/O 07/09/16 07/09/16 07/09/16 07/10/16 07/10/16 07/10/16 07:00 15:00 23:00 07:00 15:00 23:00 Intake Total 240 ml 480 ml 240 ml 2019 ml Output Total 2500 ml 1400 ml 400 ml 1100 ml Balance -2260 ml -1400 ml 480 ml -160 ml 919 ml Intake Oral 240 ml 480 ml 240 ml 1920 ml IV Total 0 ml 99 ml Output Urine Total 2500 ml 1400 ml 400 ml 1100 ml # Voids 5 1 # Bowel Movements 0 0 0 0 Result Diagram: 07/10/1615 07/10/16 0515 Objective Remarks GENERAL: WBWN female,NAD SKIN: Warm and dry. HEAD: Normocephalic. EYES: No scleral icterus. No injection or drainage. NECK: Supple, trachea midline. No JVD or lymphadenopathy. CARDIOVASCULAR: Regular rate and rhythm without murmurs, gallops, or rubs. RESPIRATORY: Breath sounds equal bilaterally. No accessory muscle use. GASTROINTESTINAL: Abdomen soft, non-tender, nondistended. MUSCULOSKELETAL: No cyanosis, or edema. BACK: Nontender without obvious deformity. No CVA tenderness. A/P Assessment and Plan COPD exac improving YOJANA bronchitis DM Lupus CKD PLAN: Aerosol nebs Supplement 02 to keep sat >90% cont abx CPAP at night DC Solumedrol Pred 10 mg bid. Dez Millan MD Jul 10, 2016 18:28
[2016-07-10] MEDS: MONTELUKAST SODIUM 10 MG TAB PO SCH (20:48)
[2016-07-10] MEDS: predniSONE 10 MG TAB PO SCH (20:48)
[2016-07-10 23:54] LABS: RHEUMATOID FACTOR 9 IU/mL (<14)
[2016-07-11] VITALS (9 sets, daily range): BP systolic 112–125; BP diastolic 61–77; PULSE 81–99; RESP 17–20; TEMP 95.9–97.5; O2SAT 92–100
[2016-07-11] MEDS: RESP: ALBUTEROL 2.5 MG/IPRATROPIUM 0.5 MG NEB (SCH) INH ×6 (00:01→20:18)
[2016-07-11 03:50] LABS: ACTIN AB IGG 27 U (())
[2016-07-11] MEDS: INSULIN ASPART SUPPLEMENTAL SCALE SQ SCH ×4 (05:07→21:33)
[2016-07-11 08:25] LABS: AUTOMATED NEUTROPHIL # 8.3 TH/MM3 (1.8-7.7); BASOPHIL % 0.3 % (0.0-2.0); EOSINOPHIL % 0.3 % (0.0-4.0); HEMATOCRIT 31.9 % (35.0-46.0); HEMO FLAGS DIFF FINAL; LYMPH % 12.8 % (9.0-44.0); LYMPHOCYTE # 1.4 TH/MM3 (1.0-4.8); MEAN CELL VOLUME 84.4 FL (80.0-100.0); MEAN CORPUSCULAR HGB CONC 33.1 % (32.0-36.0); MONO % 8.4 % (0.0-8.0); NEUT % 78.2 % (16.0-70.0); PLATELET COUNT 277 TH/MM3 (150-450); RED BLOOD COUNT 3.78 MIL/MM3 (4.00-5.30); RED CELL DISTRIBUTION WIDTH 16.7 % (11.6-17.2); WHITE BLOOD COUNT 10.6 TH/MM3 (4.0-11.0)
[2016-07-11 08:50] LABS: BICARBONATE 29.8 MEQ/L (21.0-32.0); POTASSIUM 3.5 MEQ/L (3.5-5.1)
[2016-07-11] MEDS: ACETAMINOPHEN/CODEINE 300 MG/30 MG TAB PO PRN ×2 (08:55→16:44)
[2016-07-11] MEDS: BUDESONIDE-FORMOTEROL 160/4.5 MCG INHALER INH SCH ×2 (08:57→21:24)
[2016-07-11] MEDS: BUMETANIDE INJ 1 MG/4 ML VIAL IV PUSH SCH ×2 (11:40→16:46)
[2016-07-11] MEDS: predniSONE 10 MG TAB PO SCH ×2 (11:40→21:24)
[2016-07-11] MEDS: FERROUS SULFATE 325 MG (65 MG ELEMENTAL IRON) TAB PO SCH ×2 (11:40→21:24)
[2016-07-11] MEDS: ASPIRIN EC 81 MG TABEC PO SCH (11:40)
[2016-07-11] MEDS: GABAPENTIN 300 MG CAP PO SCH (11:40)
[2016-07-11] MEDS: MULTIVITAMINS/MINERALS THERAPEUTIC TAB PO SCH (11:41)
[2016-07-11] MEDS: AZITHROMYCIN 250 MG TAB PO SCH (11:41)
[2016-07-11] MEDS: PANTOPRAZOLE SOD 40 MG DELAYED RELEASE TAB PO SCH (11:41)
[2016-07-11] MEDS: METOLAZONE 5 MG TAB PO SCH (11:41)
[2016-07-11] MEDS: INSULIN DETEMIR 100 UNITS/ML VIAL SQ SCH ×2 (11:42→21:33)
[2016-07-11] MEDS: INSULIN ASPART 1,000 UNITS/10 ML VIAL SQ SCH ×3 (11:42→16:45)
[2016-07-11] MEDS: HEPARIN SODIUM - SQ 10,000 UNITS/ML VIAL SQ SCH ×2 (11:42→21:24)
[2016-07-11] MEDS: SODIUM CHLORIDE 0.9% FLUSH 10 ML FLUSH IV FLUSH SCH ×2 (11:45→22:31)
[2016-07-11 11:52] LABS: C3 SERUM 172 mg/dL (()); C4 SERUM 43 mg/dL (ADULTS: 16-47)
--- NOTE | 2016-07-11 12:10 | HHI.FPPN ---
Subjective Remarks Pt seen and examined this morning. No acute events overnight. Pt reports that her breathing continues to improve, she is not yet back to her baseline. She denies acute chest pain, abdominal pain. Lower extremity edema continues to improve. (Suzy Clark MD R2) Objective Vitals Vital Signs Date Time Temp Pulse Resp B/P Pulse Ox O2 Delivery O2 Flow Rate FiO2 07/11/16 08:01 96 Nasal Cannula 3.00 07/11/16 08:00 95.9 81 17 112/61 100 07/11/16 04:43 99 BiPAP 40 07/11/16 04:43 99 40 07/11/16 01:56 100 40 07/11/16 00:07 92 Nasal Cannula 4.00 07/11/16 00:00 96.9 99 18 117/70 97 07/10/16 20:55 97 Nasal Cannula 3.00 07/10/16 19:49 96.6 96 18 115/69 99 07/10/16 16:00 97.4 97 16 133/79 97 I/O 07/10/16 07/10/16 07/10/16 07/11/16 07/11/16 07/11/16 07:00 15:00 23:00 07:00 15:00 23:00 Intake Total 240 ml 2019 ml 480 ml 480 ml Output Total 400 ml 1100 ml Balance -160 ml 919 ml 480 ml 480 ml Intake Oral 240 ml 1920 ml 480 ml 480 ml IV Total 99 ml Output Urine Total 400 ml 1100 ml # Voids 2 2 # Bowel Movements 0 0 0 0 (Suzy Clark MD R2) Result Diagram: 07/11/16 0727 07/11/16 07 Objective Remarks GENERAL: This is a well-nourished, well-developed patient, in no acute respiratory distress. CARDIOVASCULAR: Regular rate and rhythm without murmurs, gallops, or rubs. RESPIRATORY: Normal work of breathing. Mild crackles at lung bases, still present. Pt wearing NC at 3L. GASTROINTESTINAL: Abdomen soft, non-tender, nondistended, +bowel sounds. MUSCULOSKELETAL: Trace pitting edema of bilateral lower extremities to mid calf , improving. Extremities without clubbing, cyanosis. NEUROLOGICAL: Awake and alert. Motor and sensory grossly within normal limits. Normal speech. (Suzy Clark MD R2) A/P Assessment and Plan Pt is a 50 year old female with history of COPD, DM, HTN presenting due to COPD exacerbation. DW: Dr. Rodríguez, Dr. Warren Discharge Planning Anticipate discharge once pts respiratory and renal status has improved. ( Suzy Clark MD R2) Attending Attestation Patient seen and examined. Case reviewed and discussed with the resident team. Agree with plan of care as discussed with me and documented in the resident note. (Noreen Rodríguez MD) Problem List: (1) Lupus Status: Acute Plan: Pt with very high URIEL in past and now ESR greater than 140 and CRP 14. She states she always feels better on steroids and worse off them. Pt follows up with Insurance Claims Adjuster, Dr. Larsen. -Will continue to investigate what her exact diagnosis could be as she could have a primary vasculitis vs lupus related problem but she has a diagnosis of lupus for years at times active and at times in remission -Respiratory and kidney issues may be attributable to Lupus -Will check C3: 172, C4: 43, DS antibody -Actin IGG antibody elevated to 27 -She was previously on Plaquenil unclear when this was stopped -Per conversation with pts crystal growing technician, Dr. Larsen, she has no definitive diagnosis of Lupus, lab findings possibly due to pulmonary fibrosis -She has been prescribed Plaquenil and is to continue taking this medication -Will start Plaquenil 200mg po BID (2) COPD exacerbation Status: Acute Plan: Pt with history of COPD, currently presenting due to COPD exacerbation vs Lupus flare. At time of admission, WBC count 15.3, ABG while on nonrebreather mask at 15 L with ph of 7.49, PCO2 39, PO2 279, Oxygen saturation 97. See CXR below. Patient currently stable on nasal cannula 3-4 L. Pt reports that her breathing has been improving. -Prednisone 10mg PO Q12hrs -Will probably need longer term steroids until she gets a definitive diagnosis and can have treatment, See plan for Lupus above -Rocephin IV -Azithromycin po -Duonebs Q4hrs -Albuterol Q2 hrs PRN SOB -Montelukast 10mg PO HS -Oxygen supplementation as needed. -BiPap/CPAP to be worn at night, she'll have bipap in the hospital -Patient reports that she no longer has a arrt technologist to follow up with as an outpatient due to her insurance. -Pulmonology has been consulted, appreciate recommendations -Patient has a questionable history of sarcoidosis but this has never been confirmed. However, sarcoid can be treated with steroids and her CXR looks better Imaging: CXR 07/07: Pulmonary venous congestion versus early edema Mediations given in ED: Lasix 60 mg 1 DuoNeb 1 Vancomycin 1000 mg IV 1 Zosyn 4.5 g IV 1 (3) DM (diabetes mellitus) Status: Chronic Plan: Pt with history of DM. Home medications include Levemir 40 units BID, and Novalog SSI: 30 units with each meal. -Hemoglobin A1c 9.5 from 05/02/16 Continue the following insulin regimen: -Blood sugars have been in the 300s, improving, IV steroids have also been discontinued -Levemir 40 units BID -Novalog 30 units TIDAC -Continue to monitor blood glucose, will adjust based on blood sugars -Insulin medium dose sliding scale (4) CKD (chronic kidney disease) stage 3, GFR 30-59 ml/min Status: Acute Plan: Patient had CT-guided needle biopsy of right kidney on 08/01/15. 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 Interstitial fibrosis and tubular atrophy, severe. Arteriosclerosis, severe. - Monitor Is and Os - Monitor daily BMP - Nephrology has been consulted, appreciate recommendations - Her renal fxn continues to improve on steroids. She definitely has DM and HTN related renal disease but may now have superimposed vasculitic problem with her ESR of over 140 (5) FEN/PPX Status: Acute Plan: Electrolytes: Sodium WNL when corrected for elevated glucose, continue to monitor Nutrition: Diabetic Diet DVT PPX: Heparin GI PPX: Protonix Chronic conditions: Diabetic neuropathy -Gabapentin 400mg po TID for neuropathy, decreased due to renal function Anemia -Continue home Ferrous sulfate HTN -Bumex, pt previously on Amlodipine which can be resumed for elevated blood pressures (Suzy Clark MD R2) Problem Qualifiers (1) Lupus: Qualified Code: M32.13 - Systemic lupus erythematosus with lung involvement, unspecified SLE type (2) DM (diabetes mellitus): Qualified Code: E11.8 - Type 2 diabetes mellitus with complication, unspecified [facility] insulin use status Suzy Clark MD R2 Jul 11, 2016 12:10 Noreen Rodríguez MD Jul 14, 2016 13:38
[2016-07-11] MEDS: cefTRIAXone INJ 2,000 MG in SODIUM CHLORIDE 0.9% INJ 100 ML IV SCH (12:24)
[2016-07-11 15:50] LABS: SCL-70 AB <1.0 NEG AI (<1.0 NEGATIVE)
--- NOTE | 2016-07-11 19:09 | HHI.PR ---
Subjective Remarks 50 YO AA female with COPD,DM,YOJANA feels better Uses CPAP at night Wheezing improved no CP Breathing better Objective Vital Signs Vital Signs Date Time Temp Pulse Resp B/P Pulse Ox O2 Delivery O2 Flow Rate FiO2 07/11/16 15:52 96 Nasal Cannula 3.00 07/11/16 12:00 96.7 89 20 117/70 100 07/11/16 08:01 96 Nasal Cannula 3.00 07/11/16 08:00 95.9 81 17 112/61 100 07/11/16 04:43 99 BiPAP 40 07/11/16 04:43 99 40 07/11/16 01:56 100 40 07/11/16 00:07 92 Nasal Cannula 4.00 07/11/16 00:00 96.9 99 18 117/70 97 07/10/16 20:55 97 Nasal Cannula 3.00 07/10/16 19:49 96.6 96 18 115/69 99 I/O 07/10/16 07/10/16 07/10/16 07/11/16 07/11/16 07/11/16 07:00 15:00 23:00 07:00 15:00 23:00 Intake Total 240 ml 2019 ml 480 ml 480 ml 99 ml Output Total 400 ml 1100 ml Balance -160 ml 919 ml 480 ml 480 ml 99 ml Intake Oral 240 ml 1920 ml 480 ml 480 ml IV Total 99 ml 99 ml Output Urine Total 400 ml 1100 ml # Voids 2 2 # Bowel Movements 0 0 0 0 Result Diagram: 07/11/1627 07/11/16726 Objective Remarks GENERAL: WBWN female,NAD SKIN: Warm and dry. HEAD: Normocephalic. EYES: No scleral icterus. No injection or drainage. NECK: Supple, trachea midline. No JVD or lymphadenopathy. CARDIOVASCULAR: Regular rate and rhythm without murmurs, gallops, or rubs. RESPIRATORY: Breath sounds equal bilaterally. No accessory muscle use. GASTROINTESTINAL: Abdomen soft, non-tender, nondistended. MUSCULOSKELETAL: No cyanosis, or edema. BACK: Nontender without obvious deformity. No CVA tenderness. A/P Assessment and Plan COPD exac improving YOJANA bronchitis DM Lupus CKD PLAN: Aerosol nebs Supplement 02 to keep sat >90% cont abx CPAP at night Pred 10 mg bid. Dez Millan MD Jul 11, 2016 19:09
[2016-07-11] MEDS: MONTELUKAST SODIUM 10 MG TAB PO SCH (21:24)
[2016-07-11] MEDS: HYDROXYCHLOROQUINE SULFATE 200 MG TAB PO SCH (22:31)
[2016-07-12] VITALS (9 sets, daily range): BP systolic 114–126; BP diastolic 62–71; PULSE 76–90; RESP 16–18; TEMP 95.7–98; O2SAT 97–100
[2016-07-12 04:21] LABS: AUTOMATED NEUTROPHIL # 9.7 TH/MM3 (1.8-7.7); BASOPHIL # 0.1 TH/MM3 (0-0.2); BASOPHIL % 0.7 % (0.0-2.0); EOSINOPHIL # 0.1 TH/MM3 (0-0.4); EOSINOPHIL % 0.7 % (0.0-4.0); HEMO FLAGS DIFF FINAL; LYMPH % 11.4 % (9.0-44.0); LYMPHOCYTE # 1.4 TH/MM3 (1.0-4.8); MEAN CELL VOLUME 85.1 FL (80.0-100.0); MEAN CORPUSCULAR HEMOGLOBIN 27.4 PG (27.0-34.0); MEAN CORPUSCULAR HGB CONC 32.2 % (32.0-36.0); MONO % 8.5 % (0.0-8.0); NEUT % 78.7 % (16.0-70.0); PLATELET COUNT 293 TH/MM3 (150-450); RED BLOOD COUNT 4.11 MIL/MM3 (4.00-5.30); RED CELL DISTRIBUTION WIDTH 16.7 % (11.6-17.2); WHITE BLOOD COUNT 12.3 TH/MM3 (4.0-11.0)
[2016-07-12 04:41] LABS: BICARBONATE 31.3 MEQ/L (21.0-32.0); POTASSIUM 3.9 MEQ/L (3.5-5.1)
[2016-07-12] MEDS: ACETAMINOPHEN/CODEINE 300 MG/30 MG TAB PO PRN ×3 (05:13→21:34)
[2016-07-12] MEDS: INSULIN ASPART SUPPLEMENTAL SCALE SQ SCH ×4 (05:24→21:35)
[2016-07-12] MEDS: FERROUS SULFATE 325 MG (65 MG ELEMENTAL IRON) TAB PO SCH ×2 (08:37→21:36)
[2016-07-12] MEDS: BUMETANIDE INJ 1 MG/4 ML VIAL IV PUSH SCH ×2 (08:37→16:56)
[2016-07-12] MEDS: AZITHROMYCIN 250 MG TAB PO SCH (08:37)
[2016-07-12] MEDS: PANTOPRAZOLE SOD 40 MG DELAYED RELEASE TAB PO SCH (08:37)
[2016-07-12] MEDS: ASPIRIN EC 81 MG TABEC PO SCH (08:37)
[2016-07-12] MEDS: GABAPENTIN 300 MG CAP PO SCH (08:37)
[2016-07-12] MEDS: predniSONE 10 MG TAB PO SCH (08:37)
[2016-07-12] MEDS: MULTIVITAMINS/MINERALS THERAPEUTIC TAB PO SCH (08:37)
[2016-07-12] MEDS: INSULIN ASPART 1,000 UNITS/10 ML VIAL SQ SCH ×3 (08:38→16:57)
[2016-07-12] MEDS: METOLAZONE 5 MG TAB PO SCH (08:38)
[2016-07-12] MEDS: HYDROXYCHLOROQUINE SULFATE 200 MG TAB PO SCH ×2 (08:38→21:36)
[2016-07-12] MEDS: HEPARIN SODIUM - SQ 10,000 UNITS/ML VIAL SQ SCH ×2 (08:38→21:34)
[2016-07-12] MEDS: BUDESONIDE-FORMOTEROL 160/4.5 MCG INHALER INH SCH ×2 (08:39→21:36)
[2016-07-12] MEDS: INSULIN DETEMIR 100 UNITS/ML VIAL SQ SCH ×2 (08:39→21:35)
[2016-07-12] MEDS: SODIUM CHLORIDE 0.9% FLUSH 10 ML FLUSH IV FLUSH SCH ×2 (09:38→21:33)
--- NOTE | 2016-07-12 11:54 | HHI.FPPN ---
Subjective Remarks Patient seen and examined. LAWRENCE overnight. VSSAF. O2 sats 97-100% on 4 L O2 via NC and CPAP at night. Patient reports that she is feeling better. Breathing has improved. She was able to work with PT yesterday. No other complaints. (Fernanda Doran MD R3) Objective Vitals Vital Signs Date Time Temp Pulse Resp B/P Pulse Ox O2 Delivery O2 Flow Rate FiO2 07/12/16 08:35 98 Nasal Cannula 4.00 07/12/16 08:00 96.1 76 18 126/68 100 07/12/16 06:13 20 07/12/16 03:31 97 40 07/12/16 00:36 99 40 07/12/16 00:00 97.0 90 16 121/62 97 07/11/16 20:00 97.5 93 18 125/77 99 07/11/16 15:52 96 Nasal Cannula 3.00 07/11/16 12:00 96.7 89 20 117/70 100 I/O 07/11/16 07/11/16 07/11/16 07/12/16 07/12/16 07/12/16 07:00 15:00 23:00 07:00 15:00 23:00 Intake Total 480 ml 99 ml 240 ml 240 ml Balance 480 ml 99 ml 240 ml 240 ml Intake Oral 480 ml 240 ml 240 ml IV Total 99 ml # Voids 2 0 0 # Bowel Movements 0 0 0 (Fernanda Doran MD R3) Result Diagram: 07/12/16 0326 07/12/16 0326 Imaging Chest X-Ray 07/07/16 1657 Signed Impressions: Service Date/Time: Thursday, July 07, 2016 17:22 - CONCLUSION: Pulmonary venous congestion versus early edema. Roberto Garcia MD Objective Remarks GENERAL: This is a well-nourished, well-developed patient, in no acute respiratory distress. CARDIOVASCULAR: Regular rate and rhythm without murmurs, gallops, or rubs. RESPIRATORY: Normal work of breathing. Fine crackles at lung bases, still present. NC in place GASTROINTESTINAL: Abdomen soft, non-tender, nondistended, +bowel sounds. MUSCULOSKELETAL: Trace pitting edema of bilateral lower extremities to mid calf , improving. Extremities without clubbing, cyanosis. NEUROLOGICAL: Awake and alert. Motor and sensory grossly within normal limits. Normal speech. (Fernanda Doran MD R3) A/P Assessment and Plan Pt is a 50 year old female with history of COPD, DM, HTN presenting due to COPD exacerbation. SDW: Dr. Rodríguez and medicine team Discharge Planning Clinically improving. Anticipate discharge pending clearance from pulmonology and nephrology, likely in several days. (Fernanda Doran MD R3) Attending Attestation Patient seen and examined. Case reviewed and discussed with the resident team. Agree with plan of care as discussed with me and documented in the resident note. (Noreen Rodríguez MD) Problem List: (1) Lupus Status: Acute Plan: Pt with very high URIEL in past and now ESR greater than 140 and CRP 14. She states she always feels better on steroids and worse off them. Pt follows up with Business Applications Analyst, Dr. Larsen. -Will continue to investigate what her exact diagnosis could be as she could have a primary vasculitis vs lupus related problem but she has a diagnosis of lupus for years at times active and at times in remission. Will need further workup as an outpatient. May benefit for referral to finance admin at tertiary center. -Respiratory and kidney issues may be attributable to lupus vs. other autoimmune /vasculitis -C3: 172, C4: 43, DS antibody -Actin IGG antibody elevated to 27 -Per conversation with pts finance admin, Dr. Larsen, she has no definitive diagnosis of Lupus, lab findings possibly due to pulmonary fibrosis -She has been prescribed Plaquenil 200mg po BID and is to continue taking this medication -Continue Prednisone 10mg po BID (2) COPD exacerbation Status: Acute Plan: Pt with history of COPD, currently presenting due to COPD exacerbation vs Lupus flare. At time of admission, WBC count 15.3, ABG while on nonrebreather mask at 15 L with ph of 7.49, PCO2 39, PO2 279, Oxygen saturation 97. See CXR below. Patient currently stable on nasal cannula 3-4 L. Pt reports that her breathing has been improving. -Prednisone 10mg PO Q12hrs -Will probably need longer term steroids until she gets a definitive diagnosis and can have treatment, See plan for Lupus above -Completed 5 day course of Rocephin IV and Azithromycin po -Duonebs Q4hrs -Albuterol Q2 hrs PRN SOB -Montelukast 10mg PO HS -Oxygen supplementation as needed. -BiPap/CPAP to be worn at night, she'll have bipap in the hospital -Patient reports that she no longer has a motel front desk attendant to follow up with as an outpatient due to her insurance. -Pulmonology has been consulted, appreciate recommendations -Patient has a questionable history of sarcoidosis but this has never been confirmed. However, sarcoid can be treated with steroids and her CXR looks better Imaging: CXR 07/07: Pulmonary venous congestion versus early edema Mediations given in ED: Lasix 60 mg 1 DuoNeb 1 Vancomycin 1000 mg IV 1 Zosyn 4.5 g IV 1 (3) DM (diabetes mellitus) Status: Chronic Plan: Pt with history of DM. Home medications include Levemir 40 units BID, and Novalog SSI: 30 units with each meal. -Hemoglobin A1c 9.5 from 05/02/16 Continue the following insulin regimen: -Blood sugars have been in the 300s, improving, IV steroids have also been discontinued -Levemir 40 units BID -Novalog 30 units TIDAC -Continue to monitor blood glucose, will adjust based on blood sugars -Insulin medium dose sliding scale -Gabapentin for neuropathy (4) CKD (chronic kidney disease) stage 3, GFR 30-59 ml/min Status: Acute Plan: Patient had CT-guided needle biopsy of right kidney on 08/01/15. 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 Interstitial fibrosis and tubular atrophy, severe. Arteriosclerosis, severe. - Monitor Is and Os - Monitor daily BMP - Nephrology has been consulted, appreciate recommendations - Her renal fxn continues to improve on steroids. She definitely has DM and HTN related renal disease but may now have superimposed vasculitic problem with her ESR of over 140 - Continue Bumex 2mg IV. Consider transition to po (5) FEN/PPX Status: Acute Plan: Electrolytes: Sodium WNL when corrected for elevated glucose, continue to monitor Nutrition: Diabetic Diet DVT PPX: Heparin GI PPX: Protonix (6) Anemia Status: Chronic Plan: ACD; Hb stable -Continue iron (Fernanda Doran MD R3) Problem Qualifiers (1) Lupus: Qualified Code: M32.13 - Systemic lupus erythematosus with lung involvement, unspecified SLE type (2) DM (diabetes mellitus): Qualified Code: E11.8 - Type 2 diabetes mellitus with complication, unspecified [facility] insulin use status (3) Anemia: Qualified Code: D64.9 - Anemia, unspecified type Fernanda Doran MD R3 Jul 12, 2016 11:53 Noreen Rodríguez MD Jul 13, 2016 14:03
--- NOTE | 2016-07-12 15:13 | HHI.FF ---
Face to Face Verification Diagnosis: (1) COPD exacerbation Physical Therapy Order: Evaluate and Treat Home Health Nursing Order: Medical education Signs/symptoms of disease process Diabetic education Oxygen administration education I have seen patient Mireya See on 07/12/16. My clinical findings support the need for the requested home health care services because: Ltd mobility - disease progression Patient has SOB I certify that my clinical findings support that this patient is homebound because: Hx COPD- exertion dyspnea/weakness Fernanda Doran MD R3 Jul 12, 2016 15:13
--- NOTE | 2016-07-12 16:52 | HHI.NPPN ---
Subjective History of Present Illness 50-year-old female with a history of chronic kidney disease stage III. Previous kidney biopsy dated August 01, 2015 revealed evidence of diabetic nephropathy, glomerulosclerosis segmental and global, severe interstitial fibrosis and tubular atrophy which are poor prognostic indicators as far as preservation of renal function is concerned for the future. There is no evidence of active lupus at that time. Patient now presents with a history of increasing lower extremity edema and dyspnea. Chest x-ray showed evidence of pulmonary congestion. Shortness of breath has improved after the patient received a dose of parenteral diuretic. There is also a history of lupus with a positive URIEL test in the past. Uncertain if patient has seen a credit report checker. She was being followed by pulmonary unfortunately her usual extracorporeal circulation specialist no longer accepts her insurance. She uses a CPAP at home. On presentation this admission creatinine was 3.34 and her glucose was 299. Blood pressure is also low initially at 89/55. Her pressures since improved. Creatinine level improved at time of consult to 2.89. Blood sugar still high on day of consultation at 509. Urinalysis showed no evidence of protein or microscopic hematuria. Interval History Patient indicates that her shortness of breath is improved as well as lower extremity edema. Review of Systems Respiratory Lungs: SOB Cardiovascular Cardiac: Edema Objective Data Data 07/11/16 07/12/16 19:00 07:00 Intake Total 99 ml 480 ml Balance 99 ml 480 ml Intake Oral 480 ml IV Total 99 ml # Voids 0 # Bowel Movements 0 Vital Signs Date Time Temp Pulse Resp B/P Pulse Ox O2 Delivery O2 Flow Rate FiO2 07/12/16 12:00 95.7 85 17 119/65 99 07/12/16 09:15 98 Nasal Cannula 4.00 07/12/16 08:35 98 Nasal Cannula 4.00 07/12/16 08:00 96.1 76 18 126/68 100 07/12/16 06:13 20 07/12/16 03:31 97 40 07/12/16 00:36 99 40 07/12/16 00:00 97.0 90 16 121/62 97 07/11/16 20:00 97.5 93 18 125/77 99 -: 07/12/16 0326 07/12/16 0326 Physical Exam General Appearance: No Acute Distress Eyes Eye Exam: Pupils Equal, Pupils Reactive Throat Throat Exam: Oral Mucosa [place] & Moist Neck Neck Exam: Neck Supple, Trachea Midline Pulmonary Resp Exam: Crackles Cardiology CV Exam: Regular, Normal Sinus Rhythm Gastrointestinal/Abdomen GI Exam: Soft, Non-Tender Integumentary Skin Exam: Clear, Warm Extremeties Extremities Exam: Moderate Edema (trace edema legs.), Pitting Edema, Dependent Edema Neurologic Neuro Exam: Alert, Awake, Oriented Psychiatric Psych Exam: Appropriate Responses Assessment/Plan Discussed Condition With: Patient Problem List: (1) Acute renal failure Plan: There is no evidence of previous lupus nephritis on a kidney biopsy performed August 01, 2015. Current urinalysis does not seem to suggest worsening proteinuria or microscopic hematuria that would be indicative of nephritis also complements within normal range.. Clinically the patient's presentation and clinical course suggestive of cardiorenal syndrome however 2-D echocardiogram was essentially unremarkable. Renal indices close to baseline. Recommend follow-up post discharge with rheumatology. (2) CKD (chronic kidney disease) stage 3, GFR 30-59 ml/min Plan: Biopsy confirmed diabetic nephropathy as well as glomerulosclerosis previously. Baseline creatinine about 1.5. (3) CHF (congestive heart failure) Plan: Recommend continuance of bumetanide 2 mg twice daily with Zaroxolyn 5 mg daily. We'll also add a small dose potassium chloride 10 mEq daily. I advised the patient to monitor her weight daily and to contact my office if she gains 2-3 pounds above initial weight at home. She was also advised to see me in the office in about 1-2 weeks. Case discussed with primary M.D. Pulmonary follow-up is recommended also but uncertain if current extracorporeal circulation specialist takes her insurance. (4) Acute exacerbation of chronic obstructive pulmonary disease Plan: Management per primary care physician. (5) Anemia Plan: Fe studies pending (6) Diabetic nephropathy Plan: Biopsy confirmed with evidence of severe interstitial fibrosis and tubular atrophy. Izabel Day MD Jul 12, 2016 16:52
--- NOTE | 2016-07-12 19:54 | HHI.PR ---
Subjective Remarks 50 YO AA female with COPD,DM,YOJANA feels better Uses CPAP at night no CP Breathing better up in chair, ambulates Objective Vital Signs Vital Signs Date Time Temp Pulse Resp B/P Pulse Ox O2 Delivery O2 Flow Rate FiO2 07/12/16 16:00 96.4 86 18 114/63 100 07/12/16 12:00 95.7 85 17 119/65 99 07/12/16 09:15 98 Nasal Cannula 4.00 07/12/16 08:35 98 Nasal Cannula 4.00 07/12/16 08:00 96.1 76 18 126/68 100 07/12/16 06:13 20 07/12/16 03:31 97 40 07/12/16 00:36 99 40 07/12/16 00:00 97.0 90 16 121/62 97 07/11/16 20:00 97.5 93 18 125/77 99 I/O 07/11/16 07/11/16 07/11/16 07/12/16 07/12/16 07/12/16 07:00 15:00 23:00 07:00 15:00 23:00 Intake Total 480 ml 99 ml 240 ml 240 ml 780 ml Balance 480 ml 99 ml 240 ml 240 ml 780 ml Intake Oral 480 ml 240 ml 240 ml 780 ml IV Total 99 ml 0 ml # Voids 2 0 0 5 # Bowel Movements 0 0 0 1 Result Diagram: 07/12/16 0326 07/12/16 0326 Objective Remarks GENERAL: WBWN female,NAD SKIN: Warm and dry. HEAD: Normocephalic. EYES: No scleral icterus. No injection or drainage. NECK: Supple, trachea midline. No JVD or lymphadenopathy. CARDIOVASCULAR: Regular rate and rhythm without murmurs, gallops, or rubs. RESPIRATORY: Breath sounds equal bilaterally. No accessory muscle use. GASTROINTESTINAL: Abdomen soft, non-tender, nondistended. MUSCULOSKELETAL: No cyanosis, or edema. BACK: Nontender without obvious deformity. No CVA tenderness. A/P Assessment and Plan COPD exac improving YOJANA bronchitis DM Lupus CKD PLAN: Aerosol nebs Supplement 02 to keep sat >90% cont abx CPAP at night Pred 10 mg bid. Dez Millan MD Jul 12, 2016 19:54
[2016-07-12] MEDS ORDERED: predniSONE 10 MG TAB PO ONE (21:00)
[2016-07-12] MEDS: MONTELUKAST SODIUM 10 MG TAB PO SCH (21:36)
[2016-07-13] VITALS: BP 101/59; PULSE 84; RESP 16; TEMP 97.9; O2SAT 98
[2016-07-13 04:24] LABS: HEMATOCRIT 35.4 % (35.0-46.0); MEAN CELL VOLUME 84.7 FL (80.0-100.0); MEAN CORPUSCULAR HEMOGLOBIN 27.5 PG (27.0-34.0); MEAN CORPUSCULAR HGB CONC 32.4 % (32.0-36.0); PLATELET COUNT 254 TH/MM3 (150-450); RED BLOOD COUNT 4.19 MIL/MM3 (4.00-5.30); RED CELL DISTRIBUTION WIDTH 16.4 % (11.6-17.2); REVIEW FLAG FINAL
[2016-07-13 04:34] LABS: BICARBONATE 31.5 MEQ/L (21.0-32.0); POTASSIUM 4.4 MEQ/L (3.5-5.1)
[2016-07-13] MEDS: INSULIN ASPART SUPPLEMENTAL SCALE SQ SCH ×2 (06:04→11:06)
[2016-07-13] MEDS: ACETAMINOPHEN/CODEINE 300 MG/30 MG TAB PO PRN (06:40)
[2016-07-13 08:00] VITALS: BP 106/58; PULSE 74; RESP 16; TEMP 95.7; O2SAT 100
--- NOTE | 2016-07-13 08:31 | HHI.DS ---
Discharge Summary Admission Date Jul 07, 2016 at 19:25 Admitting Diagnosis pulmonary edema, renal failure, hospital-acquired pneumonia (1) Lupus Diagnosis: Principal Plan: Pt with very high URIEL in past and now ESR greater than 140 and CRP 14. She states she always feels better on steroids and worse off them. Pt follows up with Press Feeder, Dr. Larsen. -Will continue to investigate what her exact diagnosis could be as she could have a primary vasculitis vs lupus related problem but she has a diagnosis of lupus for years at times active and at times in remission. Will need further workup as an outpatient. May benefit for referral to director translation at tertiary center. -Respiratory and kidney issues may be attributable to lupus vs. other autoimmune /vasculitis -C3: 172, C4: 43, DS antibody -Actin IGG antibody elevated to 27 -Per conversation with pts director translation, Dr. Larsen, she has no definitive diagnosis of Lupus, lab findings possibly due to pulmonary fibrosis -She has been prescribed Plaquenil 200mg po BID and is to continue taking this medication -Continue Prednisone 10mg po BID. If she worsens, she will need to increase her steroids as pt reports this is what makes her better She has multiple signs and symptoms of inflammatory problems including Raynauds , violaceous skin papules, mouth ulcers, hair thinning and breakage, tenderness in multiple joints and muscles with morning stiffness lasting less than an hour , a history of 1800 proteinuria and then 600 and now none, a high as the lab can get UREIL, ESR. A diagnosis of lupus is made clinically, not by labs. Based on her signs and symptoms she meets criteria for a lupus diagnosis per [employer] and international norms. The signs and symptoms do not need to be present all concurrently but should be present at some point even if they improve later. Lupus or other autoimmune problems can flare and then go into remission so pts may meet criteria at one point but not at another time. Hopefully, the plaquenil will keep her from having future problems or she may need stronger meds. She may have an autoimmune disease of unknown type but will need close follow up. (2) COPD exacerbation Diagnosis: Principal Plan: Pt with history of COPD, currently presenting due to COPD exacerbation vs Lupus flare. At time of admission, WBC count 15.3, ABG while on nonrebreather mask at 15 L with ph of 7.49, PCO2 39, PO2 279, Oxygen saturation 97. See CXR below. Patient currently stable on nasal cannula 3-4 L. Pt reports that her breathing has been improving. -Prednisone 10mg PO Q12hrs -Will probably need longer term steroids until she gets a definitive diagnosis and can have treatment, See plan for Lupus above -Completed 5 day course of Rocephin IV and Azithromycin po -Duonebs Q4hrs -Albuterol Q2 hrs PRN SOB -Montelukast 10mg PO HS -Oxygen supplementation as needed. -BiPap/CPAP to be worn at night, she'll have bipap in the hospital -Patient reports that she no longer has a resident athletic trainer to follow up with as an outpatient due to her insurance. -Pulmonology has been consulted, appreciate recommendations -Patient has a questionable history of sarcoidosis but this has never been confirmed. However, sarcoid can be treated with steroids and her CXR looks better Imaging: CXR 07/07: Pulmonary venous congestion versus early edema Mediations given in ED: Lasix 60 mg 1 DuoNeb 1 Vancomycin 1000 mg IV 1 Zosyn 4.5 g IV 1 (3) DM (diabetes mellitus) Diagnosis: Principal Plan: Pt with history of DM. Home medications include Levemir 40 units BID, and Novalog SSI: 30 units with each meal. -Hemoglobin A1c 9.5 from 05/02/16 Continue the following insulin regimen: -Blood sugars have been in the 300s, improving, IV steroids have also been discontinued -Levemir 40 units BID -Novalog 30 units TIDAC -Continue to monitor blood glucose, will adjust based on blood sugars -Insulin medium dose sliding scale -Gabapentin for neuropathy (4) CKD (chronic kidney disease) stage 3, GFR 30-59 ml/min Diagnosis: Principal Plan: Patient had CT-guided needle biopsy of right kidney on 08/01/15. 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 Interstitial fibrosis and tubular atrophy, severe. Arteriosclerosis, severe. - Monitor Is and Os - Monitor daily BMP - Nephrology has been consulted, appreciate recommendations - Her renal fxn continues to improve on steroids. She definitely has DM and HTN related renal disease but may now have superimposed vasculitic problem with her ESR of over 140 - Continue Bumex 2mg IV. Consider transition to po (5) FEN/PPX Diagnosis: Principal Plan: Electrolytes: Sodium WNL when corrected for elevated glucose, continue to monitor Nutrition: Diabetic Diet DVT PPX: Heparin GI PPX: Protonix (6) Anemia Diagnosis: Principal Plan: ACD; Hb stable -Continue iron Brief History Ms See is a 50-year-old female with past medical history significant for COPD, diabetes, COPD, and lupus presenting due to respiratory failure and also renal failure. Patient reports that she has been feeling progressively short of breath over the past 3 days. She was last discharged from the hospital in May after being admitted for a COPD exacerbation. After she completed prescribed steroids she has had worsening shortness of breath. She has had to increase her home oxygen level. She is concerned that her home oxygen tank and CPAP machine may not be working properly. Patient was at a earlier today with her daughter and her daughter noticed that she was having difficulty breathing and insisted on bringing her into the ED. Patient's oxygen saturation has been as low as the mid 70s when she was at home. She has been more fatigued recently. She denies any recent illness. She has also not been able to see her resident athletic trainer, Dr. Mcdaniel, due to his office no longer accepting her insurance. She was initially placed on a nonrebreather and then was weaned to a nasal canula. She reports feeling much improved today in her breathing, her generalized edema and her body aches as well as her renal function all improved on steroids. She reports a pattern of getting worse every time she weans off prednisone and then improving in so many ways when she goes back on it. Her URIEL has been 1:1280 or more for years. CBC/BMP: 07/13/16 0349 07/13/16 0349 Significant Findings Laboratory Tests Test 07/11/16 07/12/16 07/13/16 07:27 03:26 03:49 Red Blood Count 3.78 MIL/MM3 (4.00-5.30) Hemoglobin 10.6 GM/DL 11.3 GM/DL 11.5 GM/DL (11.6-15.3) (11.6-15.3) (11.6-15.3) Hematocrit 31.9 % (35.0-46.0) Neutrophils (%) (Auto) 78.2 % 78.7 % (16.0-70.0) (16.0-70.0) Monocytes (%) (Auto) 8.4 % (0.0-8.0) 8.5 % (0.0-8.0) Neutrophils # (Auto) 8.3 TH/MM3 9.7 TH/MM3 (1.8-7.7) (1.8-7.7) Sodium Level 134 MEQ/L 133 MEQ/L 132 MEQ/L (136-145) (136-145) (136-145) Chloride Level 93 MEQ/L 91 MEQ/L 93 MEQ/L (98-107) (98-107) (98-107) Blood Urea Nitrogen 54 MG/DL (7-18) 58 MG/DL (7-18) 55 MG/DL (7-18) Creatinine 1.73 MG/DL 1.87 MG/DL 1.63 MG/DL (0.50-1.00) (0.50-1.00) (0.50-1.00) Estimat Glomerular Filtration 37 ML/MIN (>89) 34 ML/MIN (>89) 40 ML/MIN (>89) Rate Random Glucose 293 MG/DL 237 MG/DL 256 MG/DL (74-106) (74-106) (74-106) Calcium Level 8.1 MG/DL (8.5-10.1) Albumin 3.0 GM/DL (3.4-5.0) White Blood Count 12.3 TH/MM3 (4.0-11.0) Monocytes # (Auto) 1.0 TH/MM3 (0-0.9) PE at Discharge GENERAL: This is a well-nourished, well-developed patient, in no acute respiratory distress. CARDIOVASCULAR: Regular rate and rhythm without murmurs, gallops, or rubs. RESPIRATORY: Normal work of breathing. Fine crackles at lung bases, still present. NC in place GASTROINTESTINAL: Abdomen soft, non-tender, nondistended, +bowel sounds. MUSCULOSKELETAL: Trace pitting edema of bilateral lower extremities to mid calf , improving. Extremities without clubbing, cyanosis. NEUROLOGICAL: Awake and alert. Motor and sensory grossly within normal limits. Normal speech. Pt Condition on Discharge: Good Discharge Disposition: Disch w/ Home Health Serv Discharge Instructions DIET: Follow Instructions for: Diabetic Diet Speech Therapy-Diet Recommends: Regular Activities you can perform: Regular-No Restrictions Follow up Referrals: Nephrology - 1 Week PCP Follow-up - 1 Week Pulmonology - 1 Week Rheumatology - 1 Week New Medications: Prednisone (Prednisone) 10 Mg Tab 10 MG PO DAILY take 40mg for 3 days, take 30mg for 3 days, take 20 mg for 3 days take 10 mg for 3 days, take 5mg for 3 days #32 Ref 0 TAB Gabapentin (Neurontin) 300 Mg Cap 300 MG PO DAILY Days 30 CAP Hydroxychloroquine (Hydroxychloroquine) 200 Mg Tab 200 MG PO Q12HR #60 TAB Insulin Aspart Inj (Novolog Inj) 1,000 Unit/10 Ml Vial 30 UNITS SQ TID Days 30 INJECTION Insulin Aspart Inj (Novolog Inj) 100 Unit/Ml Inj 30 UNITS SQ ACHS SLIDING SCALE #30 INJECTION Insulin Detemir Inj (Levemir Inj) 1,000 unit/ 10 ML Vial 40 UNITS SQ BID #30 INJECTION Continued Medications: Albuterol 18 GM Inh (Ventolin Hfa 18 GM Inh) 90 Mcg/Act Aer 2 PUFF INH Q4H PRN SHORTNESS OF BREATH #1 Ref 0 INHALER Albuterol Neb (Albuterol Neb) 2.5 Mg/0.5 Ml Neb 2.5 MG NEB Q4HR NEB Note: The Albuterol Sulfate Inhalation Solution is concentrated and must be diluted. Read complete instructions carefully before using. PRN SHORTNESS OF BREATH EA Aspirin (Aspirin) 81 Mg Tabdr 81 MG PO DAILY TAB Benzonatate (Tessalon Perles) 100 Mg Cap 200 MG PO TID PRN cough #30 CAP Budesonide-Formoterol Inh (Symbicort Inh) 160-4.5 Mcg/Act Aero 2 PUFF INH Q12HR #1 INHALER Bumetanide (Bumex) 2 Mg Tab 2 MG PO BID Ref 0 TAB Chlorhexidine Gluconate (Mouth) Liq (Chlorhexidine Gluconate (Mouth) Liq) 0.12% Soln Unknown Dose SWISH-SPIT BID #473 Ref 0 ML Ferrous Sulfate (Ferrous Sulfate) 325 Mg Tab 325 MG PO BID Nutritional Supplement #60 Ref 0 TAB Metolazone (Metolazone) 5 Mg Tab 5 MG PO DAILY #30 Ref 0 TAB Montelukast (Singulair) 10 Mg Tab 10 MG PO HS #30 Ref 0 TAB Multiple Vitamins W/ Minerals (Multivitamin Adults) 1 Tab 1 TAB PO DAILY Nutritional Supplement Ref 0 TAB Pantoprazole (Protonix) 40 Mg Tab 40 MG PO DAILY Reflux #30 Ref 0 TAB Discontinued Medications: Amoxicillin (Amoxicillin) 500 Mg Cap 500 MG PO Q6HR Infection Ref 0 CAP Prednisone (Prednisone) 10 Mg Tab 10 MG PO DAILY Ref 0 TAB Noreen Rodríguez MD Jul 13, 2016 08:31
[2016-07-13] MEDS: INSULIN ASPART 1,000 UNITS/10 ML VIAL SQ SCH ×2 (08:35→13:00)
[2016-07-13] MEDS: INSULIN DETEMIR 100 UNITS/ML VIAL SQ SCH (08:35)
[2016-07-13] MEDS: BUDESONIDE-FORMOTEROL 160/4.5 MCG INHALER INH SCH (08:36)
[2016-07-13] MEDS: PANTOPRAZOLE SOD 40 MG DELAYED RELEASE TAB PO SCH (08:37)
[2016-07-13] MEDS: FERROUS SULFATE 325 MG (65 MG ELEMENTAL IRON) TAB PO SCH (08:37)
[2016-07-13] MEDS: GABAPENTIN 300 MG CAP PO SCH (08:37)
[2016-07-13] MEDS: SODIUM CHLORIDE 0.9% FLUSH 10 ML FLUSH IV FLUSH SCH (08:37)
[2016-07-13] MEDS: ASPIRIN EC 81 MG TABEC PO SCH (08:38)
[2016-07-13] MEDS: HYDROXYCHLOROQUINE SULFATE 200 MG TAB PO SCH (08:38)
[2016-07-13] MEDS: METOLAZONE 5 MG TAB PO SCH (08:38)
[2016-07-13] MEDS: HEPARIN SODIUM - SQ 10,000 UNITS/ML VIAL SQ SCH (08:38)
[2016-07-13] MEDS: MULTIVITAMINS/MINERALS THERAPEUTIC TAB PO SCH (08:38)
[2016-07-13] MEDS: BUMETANIDE INJ 1 MG/4 ML VIAL IV PUSH SCH (08:39)
[2016-07-13] MEDS ORDERED: predniSONE 20 MG TAB PO SCH (09:00)
[2016-07-13] MEDS ORDERED: POTASSIUM CHLORIDE 10 MEQ CONTROLLED RELEASE TAB PO SCH (09:00)
[2016-07-13] MEDS ORDERED: NOVOLOGSS SQ (12:04)
[2016-07-13] MEDS ORDERED: NEUR300C PO (12:04)
[2016-07-13] MEDS ORDERED: LEVEMIR SQ (12:04)
[2016-07-13] MEDS ORDERED: NOVOLOGP2 SQ (12:04)
[2016-07-13] MEDS ORDERED: PRED10 PO (12:04)
[2016-07-13] MEDS ORDERED: HYDR200T3 PO (12:04)
--- NOTE | 2016-07-13 12:24 | HHI.FPPN ---
Subjective Remarks Ms See reports feeling wonderful today. She has no complaints about her breathing, muscle aches, joint pains or fatigue and skin problems, etc. She is ready to go home today Objective Vitals Vital Signs Date Time Temp Pulse Resp B/P Pulse Ox O2 Delivery O2 Flow Rate FiO2 07/13/16 07:40 19 07/13/16 00:00 97.9 84 16 101/59 98 07/12/16 20:00 98.0 90 16 124/71 99 07/12/16 16:00 96.4 86 18 114/63 100 I/O 07/12/16 07/12/16 07/12/16 07/13/16 07/13/16 07/13/16 07:00 15:00 23:00 07:00 15:00 23:00 Intake Total 240 ml 780 ml 360 ml 240 ml Balance 240 ml 780 ml 360 ml 240 ml Intake Oral 240 ml 780 ml 360 ml 240 ml IV Total 0 ml # Voids 0 5 2 2 # Bowel Movements 0 1 0 0 Result Diagram: 07/13/16 0349 07/13/16 0349 Objective Remarks GENERAL: This is a well-nourished, well-developed patient, in no acute respiratory distress. CARDIOVASCULAR: Regular rate and rhythm without murmurs, gallops, or rubs. RESPIRATORY: Normal work of breathing. Fine crackles at lung bases, still present. NC in place GASTROINTESTINAL: Abdomen soft, non-tender, nondistended, +bowel sounds. MUSCULOSKELETAL: Trace pitting edema of bilateral lower extremities to mid calf , improving. Extremities without clubbing, cyanosis. NEUROLOGICAL: Awake and alert. Motor and sensory grossly within normal limits. Normal speech. Urinary Catheter: No Vascular Central Line Catheter: No A/P Assessment and Plan Pt is a 50 year old female with history of COPD, DM, HTN presenting due to COPD exacerbation. SDW: Dr. Rodríguez and medicine team Discharge Planning Clinically improving. Anticipate discharge pending clearance from pulmonology and nephrology, likely in several days. Problem List: (1) Lupus Status: Acute Plan: Pt with very high URIEL in past and now ESR greater than 140 and CRP 14. She states she always feels better on steroids and worse off them. Pt follows up with Marriage Counselor Minister, Dr. Larsen. -Will continue to investigate what her exact diagnosis could be as she could have a primary vasculitis vs lupus related problem but she has a diagnosis of lupus for years at times active and at times in remission. Will need further workup as an outpatient. May benefit for referral to contestant coordinator at tertiary center. -Respiratory and kidney issues may be attributable to lupus vs. other autoimmune /vasculitis -C3: 172, C4: 43, DS antibody -Actin IGG antibody elevated to 27 -Per conversation with pts contestant coordinator, Dr. Larsen, she has no definitive diagnosis of Lupus, lab findings possibly due to pulmonary fibrosis -She has been prescribed Plaquenil 200mg po BID and is to continue taking this medication -Continue Prednisone 10mg po BID, gave 40 mg yesterday and this am. (2) COPD exacerbation Status: Acute Plan: Pt with history of COPD, currently presenting due to COPD exacerbation vs Lupus flare. At time of admission, WBC count 15.3, ABG while on nonrebreather mask at 15 L with ph of 7.49, PCO2 39, PO2 279, Oxygen saturation 97. See CXR below. Patient currently stable on nasal cannula 3-4 L. Pt reports that her breathing has been improving. -Prednisone 10mg PO Q12hrs -Will probably need longer term steroids until she gets a definitive diagnosis and can have treatment, See plan for Lupus above -Completed 5 day course of Rocephin IV and Azithromycin po -Duonebs Q4hrs -Albuterol Q2 hrs PRN SOB -Montelukast 10mg PO HS -Oxygen supplementation as needed. -BiPap/CPAP to be worn at night, she'll have bipap in the hospital -Patient reports that she no longer has a court stenographer to follow up with as an outpatient due to her insurance. -Pulmonology has been consulted, appreciate recommendations -Patient has a questionable history of sarcoidosis but this has never been confirmed. However, sarcoid can be treated with steroids and her CXR looks better Imaging: CXR 07/07: Pulmonary venous congestion versus early edema Mediations given in ED: Lasix 60 mg 1 DuoNeb 1 Vancomycin 1000 mg IV 1 Zosyn 4.5 g IV 1 (3) DM (diabetes mellitus) Status: Chronic Plan: Pt with history of DM. Home medications include Levemir 40 units BID, and Novalog SSI: 30 units with each meal. -Hemoglobin A1c 9.5 from 05/02/16 Continue the following insulin regimen: -Blood sugars have been in the 300s, improving, IV steroids have also been discontinued -Levemir 40 units BID -Novalog 30 units TID AC -Continue to monitor blood glucose, will adjust based on blood sugars -Insulin medium dose sliding scale -Gabapentin for neuropathy (4) CKD (chronic kidney disease) stage 3, GFR 30-59 ml/min Status: Acute Plan: Patient had CT-guided needle biopsy of right kidney on 08/01/15. 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 Interstitial fibrosis and tubular atrophy, severe. Arteriosclerosis, severe. - Monitor Is and Os - Monitor daily BMP - Nephrology has been consulted, appreciate recommendations - Her renal fxn continues to improve on steroids. She definitely has DM and HTN related renal disease but may now have superimposed vasculitic problem with her ESR of over 140 - Continue Bumex 2mg IV. Consider transition to po (5) FEN/PPX Status: Acute Plan: Electrolytes: Sodium WNL when corrected for elevated glucose, continue to monitor Nutrition: Diabetic Diet DVT PPX: Heparin GI PPX: Protonix (6) Anemia Status: Chronic Plan: ACD; Hb stable -Continue iron Problem Qualifiers (1) Lupus: Qualified Code: M32.13 - Systemic lupus erythematosus with lung involvement, unspecified SLE type (2) Anemia: Qualified Code: D64.9 - Anemia, unspecified type Noreen Rodríguez MD Jul 13, 2016 12:24
--- NOTE | 2016-07-13 13:08 | HHI.FF ---
Face to Face Verification Diagnosis: (1) CHF (congestive heart failure) (2) Renal failure (3) DM (diabetes mellitus) (4) COPD exacerbation (5) Lupus Home Health Nursing Order: Medical education Diabetic education Oxygen administration education Nursing assessment with vital signs I have seen patient Mireya See on 07/13/16. My clinical findings support the need for the requested home health care services because: pt has limited mobility due to COPD exacerbation, shortness of breath. Ltd mobility - disease progression Patient has SOB I certify that my clinical findings support that this patient is homebound because: Hx COPD- exertion dyspnea/weakness Suzy Clark MD R2 Jul 13, 2016 13:08
[2016-07-13] MEDS ORDERED: Physical Therapy (13:27)
[2016-07-18] MEDS ORDERED: IPRASOL INH (10:18)
[2016-07-18] MEDS ORDERED: FERR325T PO (10:19)
[2016-07-24] MEDS ORDERED: IPRASOL INH (09:39)
[2016-08-08] MEDS ORDERED: METO5TAB3 PO (08:50)
[2016-08-08] MEDS ORDERED: OXYGENTANK NAS.CANULA (09:03)
[2016-08-17] MEDS ORDERED: BENZ100 PO (08:37)
[2016-09-12] MEDS ORDERED: LEVEMIR SQ (17:14)
[2016-09-12] MEDS ORDERED: NOVOLOGSS SQ (17:14)
[2016-09-12] MEDS ORDERED: ALBU0.08 NEB (18:01)
[2016-09-12] MEDS ORDERED: PRED20 PO (18:01)
[2016-09-12] MEDS ORDERED: IPRASOL INH (18:01)
[2016-09-12] MEDS ORDERED: LANCMIS SQ (18:10)
[2016-09-17] MEDS ORDERED: LANC1MIS74 (14:59)
[2016-09-19] MEDS ORDERED: MONT10TA2 PO (23:24)
[2016-09-19] MEDS ORDERED: BUME1TAB PO (23:29)
[2016-09-19] MEDS ORDERED: GABA800T PO (23:30)
[2016-09-25] MEDS ORDERED: AMLO5 PO (15:53)
[2016-10-01] MEDS ORDERED: PRED20 PO (10:37)
== END 2016-07-13 14:58 | disposition home health service (06) | DRG 191 ==
LOC: NEPE 16:42 → NEDA 19:25 → N07B 22:12
PROVIDERS: ADMIT Family Medicine; ATTEND Family Medicine
PROC: 0T9B70Z Drainage of Bladder with Drainage Device, Via Natural or Artificial Opening (ICD-10-PCS; principal; 2016-07-07)
PROC: 5A09357 Assistance with Respiratory Ventilation, Less than 24 Consecutive Hours, Continuous Positive Airway Pressure (ICD-10-PCS; 2016-07-07)
DX: J44.1 Chronic obstructive pulmonary disease with (acute) exacerbation (principal); N17.9 Acute kidney failure, unspecified; E11.40 Type 2 diabetes mellitus with diabetic neuropathy, unspecified; E11.21 Type 2 diabetes mellitus with diabetic nephropathy; E11.22 Type 2 diabetes mellitus with diabetic chronic kidney disease; M32.13 Lung involvement in systemic lupus erythematosus; I95.9 Hypotension, unspecified; N18.3 Chronic kidney disease, stage 3 (moderate); J84.10 Pulmonary fibrosis, unspecified; E55.9 Vitamin D deficiency, unspecified; E66.01 Morbid (severe) obesity due to excess calories; K21.9 Gastro-esophageal reflux disease without esophagitis; Z86.14 Personal history of Methicillin resistant Staphylococcus aureus infection; Z87.891 Personal history of nicotine dependence; H26.9 Unspecified cataract; I12.9 Hypertensive chronic kidney disease with stage 1 through stage 4 chronic kidney disease, or unspecified chronic kidney disease; J45.909 Unspecified asthma, uncomplicated; F41.9 Anxiety disorder, unspecified; M19.90 Unspecified osteoarthritis, unspecified site; Z79.4 Long term (current) use of insulin; D64.9 Anemia, unspecified; E11.65 Type 2 diabetes mellitus with hyperglycemia; R80.9 Proteinuria, unspecified; I50.9 Heart failure, unspecified; G47.33 Obstructive sleep apnea (adult) (pediatric)
CPT/HCPCS: 36600; 71010; 80048; 80069; 81001; 82164; 82652; 82805; 82947; 82948; 83516; 83520; 83880; 84484; 85025; 85027; 85610; 85652; 86140; 86160; 86225; 86235; 86255; 86431; 87040; 93005; 93308; 94003; 94640; 94664; 96374; 96375; J0696; J1644; J1815; J1940; J2543; J2920; J3370; J7050; J7512

== ENCOUNTER 2016-08-23 15:18 | Inpatient (IN) | payer MEDICAID ==
[~2016-08-23] VITALS: Ht 172.7 cm; Wt 108.5 kg
[2016-08-23] VITALS (11 sets, daily range): BP systolic 89–140; BP diastolic 51–76; PULSE 85–106; RESP 12–40; TEMP 98.7–98.9; O2SAT 81–95
[~2016-08-23 15:18] MED LIST changes: +ASPI1TAB69 PO; -ASPI81CH CHEW; -BUME1TAB PO; +BUME1TAB28 PO; -CEFT500T3 PO; +CHLO.12%30 SWISH-SPIT; +HYDR200T3 PO; -INSU1MIS SQ; +IPRASOL INH; +NEUR300C PO; -NOVOLOGP2 SQ; +NOVOLOGSS SQ; +OXYGENTANK NAS.CANULA; +Physical Therapy; -ZITH250T PO
[2016-08-23] MEDS ORDERED: SODIUM CHLORIDE 0.9% FLUSH 10 ML FLUSH IVF PRN (16:00)
[2016-08-23] MEDS ORDERED: methylPREDNISolone SOD SUCC 125 MG/2 ML VIAL IVP ONE (16:00)
[2016-08-23 16:10] LABS: AUTOMATED NEUTROPHIL # 8.4 TH/MM3 (1.8-7.7); BASOPHIL # 0.1 TH/MM3 (0-0.2); BASOPHIL % 0.7 % (0.0-2.0); EOSINOPHIL # 0.1 TH/MM3 (0-0.4); EOSINOPHIL % 0.8 % (0.0-4.0); HEMATOCRIT 32.5 % (35.0-46.0); HEMO FLAGS DIFF FINAL; LYMPH % 19.4 % (9.0-44.0); LYMPHOCYTE # 2.3 TH/MM3 (1.0-4.8); MEAN CELL VOLUME 84.8 FL (80.0-100.0); MEAN CORPUSCULAR HEMOGLOBIN 27.1 PG (27.0-34.0); MONO % 8.9 % (0.0-8.0); NEUT % 70.2 % (16.0-70.0); PLATELET COUNT 400 TH/MM3 (150-450); RED BLOOD COUNT 3.83 MIL/MM3 (4.00-5.30); RED CELL DISTRIBUTION WIDTH 17.4 % (11.6-17.2); WHITE BLOOD COUNT 11.9 TH/MM3 (4.0-11.0)
--- NOTE | 2016-08-23 16:12 | RADRPT ---
EXAM DATE/TIME: 08/23/2016 16:00 [facility] COMPARISON: CHEST SINGLE AP, January 31, 2015, 12:10. CT PULMONARY ANGIOGRAM, January 31, 2015, 13:52. CHEST PA & LAT, May 14, 2016, 9:19. CHEST SINGLE AP, July 07, 2016, 17:22. INDICATIONS : Short of breath MEDICAL HISTORY : Hypertension. Chronic obstructive pulmonary disease. Diabetes mellitus type 2 SURGICAL HISTORY : None. ENCOUNTER: Initial ACUITY: 1 day PAIN SCORE: 0/10 LOCATION: Bilateral chest FINDINGS: Examination reveals stable mild cardiomegaly with vascular congestion and interstitial prominence. CONCLUSION: Stable chest appearance Edwin Gastelum MD on August 23, 2016 at 16:06 Board Certified Radiologist. This report was verified electronically.
--- NOTE | 2016-08-23 16:24 | PD ---
HPI Chief Complaint: Respiratory Symptoms Time Seen by Provider: 16:00 Travel History International Travel<30 days: No Contact w/Intl Traveler<30days: No Traveled to known affect area: No History of Present Illness HPI Patient states that she'll female presenting to emergency for evaluation of shortness of breath with cough that has been ongoing for 4 days. Patient states that she also has been having jerking body movements. Patient is oxygen dependent and normally has her oxygen on 2.5 to 3 L via nasal cannula, today she 's had it up to 4-1/2 L. She states that she used her Symbicort and nebulizer treatment this morning. She denies any nausea, vomiting, fever, chills, headache, chest pain or abdominal pain. She reports a past medical history significant for COPD, hypertension, diabetes and lupus. She takes 81 mg baby aspirin daily. She is a former smoker quitting 10 years ago. She states that she waited to come in to see if it would resolve on its own. PFSH Past Medical History Hx Anticoagulant Therapy: Yes (asa) Anemia: Yes Arthritis: Yes Asthma: Yes Autoimmune Disease: Yes (Lupus) Anxiety: Yes Depression: No Heart Rhythm Problems: No Cancer: No Cardiovascular Problems: Yes (pulmonary edema) High Cholesterol: No Chemotherapy: No Chest Pain: No Congestive Heart Failure: No COPD: Yes Cerebrovascular Accident: No Coronary Artery Disease: No Diabetes: Yes Diminished Hearing: No GERD: Yes Glaucoma: No Genitourinary: No Headaches: Yes Hepatitis: No Hiatal Hernia: No Hypertension: Yes Implanted Vascular Access Dvce: Yes Kidney Stones: No Neurologic: No Reproductive: No Immunizations Current: No Migraines: Yes Renal Failure: No Seizures: No Sickle Cell Disease: No Sleep Apnea: Yes Thyroid Disease: No Ulcer: No ?: Not Menopausal: Yes : 3 Para: 1 Miscarriage: 2 Past Surgical History Abdominal Surgery: No AICD: No Arteriovenous Shunt: No Body Medical Devices: right ankle screws and plates Cardiac Surgery: No Ear Surgery: No Endocrine Surgery: No Eye Surgery: No Genitourinary Surgery: Yes (KIDNEY BIOPSY ) Gynecologic Surgery: Yes (ABLATION) Hysterectomy: Yes Insulin Pump: No Joint Replacement: No Neurologic Surgery: No Oral Surgery: No Pacemaker: No Thoracic Surgery: No Other Surgery: Yes (Ankle Surgery) Social History Alcohol Use: No Tobacco Use: No (quit 10 years ago) Substance Use: No Allergies-Medications (Allergen,Severity, Reaction): Coded Allergies: *MDRO Multi-Drug Resistant Organism (Verified Adverse Reaction, Unknown, ) 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 Pt does not require isolation for hx of MDRO prior to 05/11/15* Reported Meds & Prescriptions Reported Meds & Active Scripts Active Tessalon Perles (Benzonatate) 100 Mg Cap 200 Mg PO TID PRN Oxygen tank (Oxygen) 1 Ea Tank 2 Liter VARSHA.CANULA CONTINUOUS Oxygen Concentrator Portable Gaseous 2 L/min via Nasal Cannula Continuous For 99 months Metolazone 5 Mg Tab 5 Mg PO TID Duoneb (Ipratropium-Albuterol Neb) 0.5-2.5 Mg/3 Ml Neb 1 Nebule INH HS Ferrous Sulfate 325 Mg Tab 325 Mg PO BID [Physical Therapy] Prednisone 10 Mg Tab 10 Mg PO DAILY take 40mg for 3 days, take 30mg for 3 days, take 20 mg for 3 days take 10 mg for 3 days, take 5mg for 3 days Novolog Inj (Insulin Aspart) 100 Unit/Ml Inj 30 Units SQ ACHS SLIDING SCALE Levemir Inj (Insulin Detemir) 1,000 unit/ 10 ML Vial 40 Units SQ BID Hydroxychloroquine (Hydroxychloroquine Sulfate) 200 Mg Tab 200 Mg PO Q12HR Neurontin (Gabapentin) 300 Mg Cap 300 Mg PO DAILY 30 Days Symbicort Inh (Budesonide/Formoterol Fumarate) 160-4.5 Mcg/Act Aero 2 Puff INH Q12HR Reported Chlorhexidine Gluconate (Mouth) Liq (Chlorhexidine Gluconate) 0.12% Soln Unknown Dose SWISH-SPIT BID Aspirin 81 Mg Tabdr 81 Mg PO DAILY Bumex (Bumetanide) 2 Mg Tab 2 Mg PO BID Ventolin Hfa 18 GM Inh (Albuterol Sulfate) 90 Mcg/Act Aer 2 Puff INH Q4H PRN Singulair (Montelukast Sodium) 10 Mg Tab 10 Mg PO HS Albuterol Neb (Albuterol Sulfate) 2.5 Mg/0.5 Ml Neb 2.5 Mg NEB Q4HR NEB PRN Note: The Albuterol Sulfate Inhalation Solution is concentrated and must be diluted. Read complete instructions carefully before using. Protonix (Pantoprazole Sodium) 40 Mg Tab 40 Mg PO DAILY Multivitamin Adults (Multiple Vitamins W/ Minerals) 1 Tab 1 Tab PO DAILY Gabapentin 800 Mg Tab 800 Mg PO BID Review of Systems Except as stated in HPI: all other systems reviewed are Neg General / Constitutional: No: Fever Eyes: No: Blurred Vision HENT: No: Headaches, Lightheadedness Cardiovascular: Positive: Dyspnea on exertion, No: Chest Pain or Discomfort Respiratory: Positive: Cough, Shortness of Breath, Orthopnea Gastrointestinal: No: Nausea, Vomiting, Diarrhea, Abdominal Pain Genitourinary: No: Dysuria Neurologic: No: Weakness, Dizziness, Syncope, Focal Abnormalities Physical Exam Narrative GENERAL: Obese, well-developed, alert female. She comfortably in no acute distress SKIN: Focused skin assessment warm/dry. HEAD: Atraumatic. Normocephalic. EYES: Pupils equal and round. No scleral icterus. No injection or drainage. ENT: No nasal bleeding or discharge. Mucous membranes pink and moist. NECK: Trachea midline. No JVD. CARDIOVASCULAR: Regular rate and rhythm. No murmur appreciated. RESPIRATORY: No accessory muscle use. Clear to auscultation. Breath sounds diminished in bases, scattered expiratory wheezing GASTROINTESTINAL: Abdomen obese, soft, non-tender, nondistended. Hepatic and splenic margins not palpable. MUSCULOSKELETAL: No obvious deformities. No clubbing. No cyanosis. No edema. NEUROLOGICAL: Awake and alert. No obvious cranial nerve deficits. Motor grossly within normal limits. Normal speech. PSYCHIATRIC: Appropriate mood and affect; insight and judgment normal. Data Data Last Documented VS Vital Signs Date Time Temp Pulse Resp B/P Pulse Ox O2 Delivery O2 Flow Rate FiO2 08/23/16 17:30 92 97/54 92 Nasal Cannula 3 08/23/16 15:21 98.7 40 Orders Complete Blood Count With Diff (08/23/16 15:48) Comprehensive Metabolic Panel (08/23/16 15:48) B-Type Natriuretic Peptide (08/23/16 15:48) Act Partial Throm Time (Ptt) (08/23/16 15:48) Prothrombin Time / Inr (Pt) (08/23/16 15:48) Magnesium (Mg) (08/23/16 15:48) Ckmb (Isoenzyme) Profile (08/23/16 15:48) Troponin I (08/23/16 15:48) Arterial Blood Gas (Abg) (08/23/16 15:48) Urinalysis - C+S If Indicated (08/23/16 15:48) Iv Access Insert/Monitor (08/23/16 15:48) Electrocardiogram (08/23/16 15:48) Ecg Monitoring (08/23/16 15:48) Oximetry (08/23/16 15:48) Oxygen Administration (08/23/16 15:48) Chest, Single Ap (08/23/16 15:48) Sodium Chloride 0.9% Flush (Ns Flush) (08/23/16 16:00) Methylprednisolone So Succ Inj (Solumedr (08/23/16 16:00) Albuterol-Ipratropium Neb (Duoneb Neb) (08/23/16 16:00) Resp Bipap / Cpap Non Invas Vt (08/23/16 ) Lactic Acid (08/23/16 15:55) CKMB (08/23/16 16:00) CKMB% (08/23/16 16:00) Dextrose 50% In Titi (Vial) Inj (D50w (Vi (08/23/16 16:45) Sodium Chlor 0.9% 1000 Ml Inj (Ns 1000 M (08/23/16 16:44) Sodium Chlor 0.9% 1000 Ml Inj (Ns 1000 M (08/23/16 16:44) Cefepime Inj (Maxipime Inj) (08/23/16 16:44) Azithromycin Inj (Zithromax Inj) (08/23/16 16:44) Lactic Acid (08/23/16 17:49) Admit Order (Ed Use Only) (08/23/16 18:36) Labs Laboratory Tests Test 08/23/16 08/23/16 08/23/16 16:00 16:39 18:25 White Blood Count 11.9 TH/MM3 Red Blood Count 3.83 MIL/MM3 Hemoglobin 10.4 GM/DL Hematocrit 32.5 % Mean Corpuscular Volume 84.8 FL Mean Corpuscular Hemoglobin 27.1 PG Mean Corpuscular Hemoglobin 32.0 % Concent Red Cell Distribution Width 17.4 % Platelet Count 400 TH/MM3 Mean Platelet Volume 7.0 FL Neutrophils (%) (Auto) 70.2 % Lymphocytes (%) (Auto) 19.4 % Monocytes (%) (Auto) 8.9 % Eosinophils (%) (Auto) 0.8 % Basophils (%) (Auto) 0.7 % Neutrophils # (Auto) 8.4 TH/MM3 Lymphocytes # (Auto) 2.3 TH/MM3 Monocytes # (Auto) 1.1 TH/MM3 Eosinophils # (Auto) 0.1 TH/MM3 Basophils # (Auto) 0.1 TH/MM3 CBC Comment DIFF FINAL Differential Comment Prothrombin Time 11.1 SEC Prothromb Time International 1.0 RATIO Ratio Activated Partial 28.3 SEC Thromboplast Time Sodium Level 139 MEQ/L Potassium Level 3.5 MEQ/L Chloride Level 94 MEQ/L Carbon Dioxide Level 32.4 MEQ/L Anion Gap 13 MEQ/L Blood Urea Nitrogen 38 MG/DL Creatinine 3.77 MG/DL Estimat Glomerular Filtration 15 ML/MIN Rate Random Glucose 44 MG/DL Lactic Acid Level 5.5 mmol/L 2.9 mmol/L Calcium Level 7.8 MG/DL Magnesium Level 1.4 MG/DL Total Bilirubin 0.3 MG/DL Aspartate Amino Transf 35 U/L (AST/SGOT) Alanine Aminotransferase 28 U/L (ALT/SGPT) Alkaline Phosphatase 114 U/L Total Creatine Kinase 308 U/L Creatine Kinase MB 0.9 NG/ML Creatine Kinase MB % 0.3 % Troponin I LESS THAN 0.02 NG/ML B-Type Natriuretic Peptide 249 PG/ML Total Protein 7.7 GM/DL Albumin 3.1 GM/DL Blood Gas Puncture Site RT RADIAL Blood Gas Patient Temperature 98.6 Blood Gas HCO3 33 mmol/L Blood Gas Base Excess 8.8 mmol/L Blood Gas Oxygen Saturation 90 % Arterial Blood pH 7.50 Arterial Blood Partial 42 mmHg Pressure CO2 Arterial Blood Partial 69 mmHG Pressure O2 Arterial Blood Oxygen Content 12.1 Vol % Arterial Blood 1.4 % Carboxyhemoglobin Arterial Blood Methemoglobin 0.3 % Blood Gas Hemoglobin 9.5 G/DL Oxygen Delivery Device NASAL CANNULA Blood Gas Liter Flow 3 L/M MDM Medical Decision Making Medical Screen Exam Complete: Yes Emergency Medical Condition: Yes Interpretation(s) Vital Signs Date Time Temp Pulse Resp B/P Pulse Ox O2 Delivery O2 Flow Rate FiO2 08/23/16 15:52 90 Nasal Cannula 3 08/23/16 15:48 Nasal Cannula 2 08/23/16 15:24 81 5/25/17 15:21 98.7 106 40 92/55 Nasal Cannula Differential Diagnosis COPD exacerbation versus bronchitis versus pneumonia versus pulmonary embolism versus other Narrative Course Patient's history of female presenting to emergency for evaluation of short of breath and cough. On initial examination patient's O2 sats were charted as 81, patient was re-checked by respiratory therapy and her pulse ox was between 91 and 94% on 3 L. IV access established, labs and imaging ordered and pending. CBC with a white count 11.9 Initial lactic acid of 5.5 BNP 249 BUN and creatinine 38 and 3.77 Chest x-ray stable Patient's oxygen saturation on 3 L nasal cannula has been between 90-93%. 2 L of IV fluids ordered, patient has some antihypertensive, she has not received the full 2 L at this time. Patient will be placed in the ICU, Dr. Clark accepted admission on behalf of Dr. Pitts. Repeat lactic acid is 2.9 Sepsis Criteria SIRS Criteria (2 or more): Heart rate over 90, RR > 20 or PaCO2 < 32 Severe Sepsis (+one): Hypotension, Lactate >2, Acute Oliguria/Renal Failure Septic Shock Criteria: Lactic acid >=4 Criteria Outcome: Meets septic shock criteria Diagnosis Primary Impression: Sepsis Qualified Code: A41.9 - Sepsis, due to unspecified organism Additional Impressions: Acute exacerbation of chronic obstructive pulmonary disease CHF (congestive heart failure) Qualified Code: I50.9 - Congestive heart failure, unspecified congestive heart failure chronicity, unspecified congestive heart failure type Hypoxia Acute kidney injury superimposed on chronic kidney disease Admitting Information Admitting Physician Requests: Admit Condition: Kyra Rees 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
[2016-08-23] MEDS: RESP: ALBUTEROL 2.5 MG/IPRATROPIUM 0.5 MG NEB (SCH) INH ×2 (16:32→16:33)
[2016-08-23 16:33] LABS: ALKALINE PHOSPHATASE 114 U/L (45-117); ALT (GPT) 28 U/L (10-53); ANION GAP 13 MEQ/L (5-15); AST (GOT) 35 U/L (15-37); BICARBONATE 32.4 MEQ/L (21.0-32.0); BLOOD UREA NITROGEN 38 MG/DL (7-18); CHLORIDE 94 MEQ/L (98-107); CREATINE KINASE 308 U/L (26-192); GLOMERULAR FILTRATION RATE 15 ML/MIN (>89); MAGNESIUM 1.4 MG/DL (1.5-2.5); POTASSIUM 3.5 MEQ/L (3.5-5.1); SODIUM (NA) 139 MEQ/L (136-145); TOTAL BILIRUBIN ADULT 0.3 MG/DL (0.2-1.0)
[2016-08-23] MEDS ORDERED: SODIUM CHLOR 0.9% 1000 ML INJ 1,000 ML IV ONE ×2 (16:44)
[2016-08-23] MEDS ORDERED: CEFEPIME INJ 2,000 MG in SODIUM CHLORIDE 0.9% INJ 100 ML IV STA (16:44)
[2016-08-23] MEDS ORDERED: AZITHROMYCIN INJ 500 MG in SODIUM CHLOR 0.9% 250 ML INJ 250 ML IV STA (16:44)
[2016-08-23] MEDS ORDERED: DEXTROSE 50% IN WATER 50 ML VIAL(D50) IV PUSH ONE (16:45)
[2016-08-23 16:48] LABS: APTT (PATIENT) 28.3 SEC (24.3-30.1); PROTHROMBIN TIME - PATIENT 11.1 SEC (9.8-11.6)
[2016-08-23 16:54] LABS: BLOOD GAS BASE EXCESS 8.8 mmol/L (-2-2); BLOOD GAS CARBOXYHEMOGLOBIN 1.4 % (0-4); BLOOD GAS HCO3 33 mmol/L (22-26); BLOOD GAS METHEMOGLOBIN 0.3 % (0-2); BLOOD GAS O2 HGB SATURATION 90 % (90-100); BLOOD GAS OXYGEN CONTENT 12.1 Vol % (12.0-20.0); BLOOD GAS PCO2 42 mmHg (38-42); BLOOD GAS PO2 69 mmHG (61-120); BLOOD GAS TOTAL HGB 9.5 G/DL (12.0-16.0); CRITICAL VALUE NO; TEMP CORR TO 98.6
[2016-08-23 16:55] LABS: DRAW SITE RT RADIAL; LITER FLOW 3 L/M; NUMBER OF ARTERIAL PUNCTURES 1; OXYGEN DEVICE NASAL CANNULA; STAT YES; ULNAR PULSE PRESENT
[2016-08-23 16:58] LABS: CKMB 0.9 NG/ML (0.5-3.6)
--- NOTE | 2016-08-23 19:08 | HHI.HP ---
[facility] Service Family Medicine Primary Care Physician Dao Engle MD Admission Diagnosis COPD exacerbation, hypoxia, acute on chronic kidney disease Diagnoses: Chief Complaint: sob International Travel<30 Days: No Contact w/Intl Traveler<30days: No Known Affected Area: No History of Present Illness Patient is a 50 yo F, hx of COPD and lupus, coming to the ED to be evaluated for SOB. She states that over the past few days, she has been experiencing worsening shortness of breath. She has been using home dose nasal cannula oxygen at 3 L. At one point, she noticed that pulse ox was as low as 70. When she noticed her oxygen level was this low, she also experienced jerking over her entire body. She reports that it felt as though her muscles were twitching.. She increased her oxygen via nasal cannula to 4.5 L, and noticed increased and her pulse ox to 90. Over the course of the past day, patient reports that her shortness of breath continued to worsen to the point that she could not remain at home any longer. She states that since presenting to the emergency department, she feels much better. providers neftaly - rheumatology [facility] nephrology [facility] (Tracy Clark MD) Review of Systems Constitutional: COMPLAINS OF: Fatigue, DENIES: Fever, Chills Eyes: COMPLAINS OF: Blurred vision (when oxygen low), DENIES: Vision loss Respiratory: COMPLAINS OF: Cough, Shortness of breath, DENIES: Wheezing, Sputum production Cardiovascular: COMPLAINS OF: Chest pain, DENIES: Palpitations, Syncope, PND, Lower Extremity Edema Gastrointestinal: COMPLAINS OF: Abdominal pain (with cough), DENIES: Bloody stools, Diarrhea, Nausea, Vomiting Integumentary: DENIES: Rash Hematologic/lymphatic: DENIES: Bruising Neurologic: COMPLAINS OF: Tremor (diffuse body shakes), DENIES: Speech Problems Psychiatric: DENIES: Confusion, Mood changes (Tracy Clark MD) Past Family Social History Past Medical History COPD ?Sarcoidosis DM Lupus Past Surgical History Right ankle surgery (Tracy Clark MD) Allergies: Coded Allergies: *MDRO Multi-Drug Resistant Organism (Verified Adverse Reaction, Unknown, ) 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 Pt does not require isolation for hx of MDRO prior to 05/11/15* Family History Mother: Lupus Father: DM, HTN, CKD, Visually impaired Social History Pt is not working, disabled due to chronic medical problems. Denies smoking, drinking, illicit drug use. (Tracy Clark MD) Physical Exam Vital Signs Vital Signs Date Time Temp Pulse Resp B/P Pulse Ox O2 Delivery O2 Flow Rate FiO2 08/23/16 18:42 91 18 89/51 92 Nasal Cannula 3 08/23/16 17:30 92 97/54 92 Nasal Cannula 3 08/23/16 16:32 91 Nasal Cannula 3.00 08/23/16 15:52 90 Nasal Cannula 3 08/23/16 15:48 Nasal Cannula 2 08/23/16 15:24 81 08/23/16 15:21 98.7 106 40 92/55 Nasal Cannula Physical Exam GENERAL: This is a disheveled-appearing female, appearing to be fatigued SKIN: No rashes, ecchymoses or lesions. Cool and dry. HEAD: Atraumatic. Normocephalic. EYES: Pupils equal round and reactive. Extraocular motions intact. ENT: Nose without bleeding, purulent drainage or septal hematoma. Throat without erythema, tonsillar hypertrophy or exudate. Uvula midline. Airway patent. NECK: Trachea midline. No JVD or lymphadenopathy. Supple, nontender, no meningeal signs. CARDIOVASCULAR: Regular rate and rhythm without murmurs, gallops, or rubs. 1+ pitting edema over lower legs to level of the tibial plateau. RESPIRATORY: Clear to auscultation. Breath sounds equal bilaterally. Coarse breath sounds noted. GASTROINTESTINAL: Abdomen soft, non-tender, obese. No hepato-splenomegaly, or palpable masses. No guarding. MUSCULOSKELETAL: Extremities without clubbing, cyanosis, or edema. No joint tenderness, effusion, or edema noted. NEUROLOGICAL: Awake and alert. Cranial nerves II through XII intact. Motor and sensory grossly within normal limits. Five out of 5 muscle strength in all muscle groups. Normal speech. Laboratory Laboratory Tests Test 08/23/16 08/23/16 08/23/16 16:00 16:39 18:25 White Blood Count 11.9 Red Blood Count 3.83 Hemoglobin 10.4 Hematocrit 32.5 Mean Corpuscular Volume 84.8 Mean Corpuscular Hemoglobin 27.1 Mean Corpuscular Hemoglobin 32.0 Concent Red Cell Distribution Width 17.4 Platelet Count 400 Mean Platelet Volume 7.0 Neutrophils (%) (Auto) 70.2 Lymphocytes (%) (Auto) 19.4 Monocytes (%) (Auto) 8.9 Eosinophils (%) (Auto) 0.8 Basophils (%) (Auto) 0.7 Neutrophils # (Auto) 8.4 Lymphocytes # (Auto) 2.3 Monocytes # (Auto) 1.1 Eosinophils # (Auto) 0.1 Basophils # (Auto) 0.1 CBC Comment DIFF FINAL Differential Comment Prothrombin Time 11.1 Prothromb Time International 1.0 Ratio Activated Partial 28.3 Thromboplast Time Sodium Level 139 Potassium Level 3.5 Chloride Level 94 Carbon Dioxide Level 32.4 Anion Gap 13 Blood Urea Nitrogen 38 Creatinine 3.77 Estimat Glomerular Filtration 15 Rate Random Glucose 44 Lactic Acid Level 5.5 2.9 Calcium Level 7.8 Magnesium Level 1.4 Total Bilirubin 0.3 Aspartate Amino Transf 35 (AST/SGOT) Alanine Aminotransferase 28 (ALT/SGPT) Alkaline Phosphatase 114 Total Creatine Kinase 308 Creatine Kinase MB 0.9 Creatine Kinase MB % 0.3 Troponin I LESS THAN 0.02 B-Type Natriuretic Peptide 249 Total Protein 7.7 Albumin 3.1 Blood Gas Puncture Site RT RADIAL Blood Gas Patient Temperature 98.6 Blood Gas HCO3 33 Blood Gas Base Excess 8.8 Blood Gas Oxygen Saturation 90 Arterial Blood pH 7.50 Arterial Blood Partial 42 Pressure CO2 Arterial Blood Partial 69 Pressure O2 Arterial Blood Oxygen Content 12.1 Arterial Blood 1.4 Carboxyhemoglobin Arterial Blood Methemoglobin 0.3 Blood Gas Hemoglobin 9.5 Oxygen Delivery Device NASAL CANNULA Blood Gas Liter Flow 3 (Tracy Clark MD) Result Diagram: 08/23/16 1600 08/23/16 1600 Septic Shock Reassessment Heart: Regular rate and rhythm Lungs: Course Skin: Warm, Dry Capillary Refill: <2 seconds (Tracy Clark MD) Assessment and Plan Assessment and Plan 50 yo F, hx of COPD, lupus, presenting in COPD exacerbation. Code Status Full Discussed Condition With Dr. Aguillon (Tracy Clark MD) Attending Attestation The patient has been seen and examined. The chart and all resident notes have been reviewed. I agree that inpatient care is appropriate and that a two midnight stay is expected for the reasons documented in the resident history and physical. I have discussed this with the resident and certify the resident s order for inpatient admission. Patient seen and examined. Case reviewed and discussed Please refer to resident H&P for further details regarding HPI, ROS, PMH, SurgHx , Fh and SocHx In summary, patient is a 50yoF with a history of chronic lung disease and multiple, frequent hospitalizations admitted with acute onset shortness of breath and hypoxia to 70s. Patient is seen in her hospital room this am with NC 4L, feeling much better than admission, sats stable in high 80s, low 90s unless exerts herself, then drops Overall, breathing much better GENERAL: AAF, NAD, resting in bed, communicative SKIN: Warm and dry. NO rashes HEAD: Normocephalic. AT EYES: No scleral icterus. No injection or drainage. ENT: OP clear. MM slightly dry, NC in place NECK: Supple, trachea midline. No JVD or lymphadenopathy. CARDIOVASCULAR: Regular rate and rhythm without audible murmurs, gallops, or rubs. RESPIRATORY: Breath sounds equal bilaterally scant wheezing, otherwise clear. No accessory muscle use. GASTROINTESTINAL: Abdomen soft, non-tender, nondistended.No palpable masses, organomegaly MUSCULOSKELETAL: No cyanosis, 1+ edema to knees. No calf tenderness BACK: Nontender without obvious deformity. No CVA tenderness. NEURO: Awake and alert. Normal speech. CN Grossly intact. A/P: 50yoF admitted with: Exacerbation of chronic lung disease Lactic acidosis Hypoxia Leukocytosis Acute on chronic kidney failure Lupus Hypocalcemia DM, insulin dependent Consult pulmonology, Appreciate renal input Empiric antibiotics Supplemental O2 as needed Resume home meds Heparin proph PPI while on steroids, ICU Avoid nephrotoxins Trend BMP, electrolytes Accuchecks, SSI as needed Levemir with titration as needed Patient seen and examined. Case reviewed and discussed Agree with plan of care as discussed with me and documented in the resident note. (Chely Pitts MD) Problem List: (1) Sepsis Status: Acute Plan: Patient meeting septic shock criteria given lactic acid 5, hypotension and renal failure. Vitals have improved while patient in the emergency room, no longer hypotensive and tachycardic after receiving 2 L bolus. Repeat lactic acid 2.9 -Consider repeat bolus to complete 30 ml/kg bolus allotment -Hold Metolazone, Bumex -plan as below (2) COPD (chronic obstructive pulmonary disease) Status: Acute Plan: Patient with hx of COPD, now with COPD exacerbation, presenting to the ED in sepsis, mildly elevated leukocytosis to 11k. Blood gas showing O2 saturation 90, pH 7.5, PCO2 42 while patient on 3 L via nasal cannula, which is her home dose supplemental oxygen. Patient receiving cefepime and azithromycin , Solu-Medrol 125 x 1 in the emergency department. -Admit to inpatient -Consult Psychotherapist Social Worker -BiPap -Cefepime 2 g IV q24 - renal dose -Azithromycin -Symbicort -Tessalon Pearles prn -Solumedrol 60 mg IV q6h -Hold home dose Prednisone -Singulair -ACS rule out given patient c/o CP -AM Labs: CBC, BMP, Mg (3) Acute renal failure Status: Acute Plan: Patient with acute on chronic renal failure. GFR 15, decreased from 40s. Likely having decreased perfusion 2/2 sepsis, resolving. Patient had CT-guided needle biopsy of right kidney on 08/01/15. 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 Interstitial fibrosis and tubular atrophy, severe. Arteriosclerosis, severe. -IV fluids -Consult nephrology (4) Diabetes mellitus Status: Chronic Plan: Pt with history of DM, serum glucose 44 on presentation to emergency department, bedside glucose 84 on repeat after patient receiving dextrose 1 vial. Home medications include Levemir 40 units BID, and Novalog SSI: 30 units with each meal. Hemoglobin A1c 9.5 from 05/02/16 -Repeat BMP now -Hold Levemir 20 units BID given hypoglycemia, consider restarting in AM -Hold Novalog 10 units TIDAC -Low-dose sliding scale -Continue to monitor blood glucose, will consider increasing Levemir (5) Anemia Status: Chronic Plan: Patient with chronic anemia, likely related to chronic kidney disease. Baseline hemoglobin 11, currently 10.4. -Closely monitor CBC (6) FEN/PPX Status: Acute Plan: NS at 125 mls/hr Nutrition: Regular DVT PPX: Heparin GI PPX: Protonix Electrolytes: Mg 1.4, repleted (Tracy Clark MD) Physician Certification 2 Midnight Certification Type: Admission for Inpatient Services Order for Inpatient Services The services are ordered in accordance with Medicare regulations or non- Medicare payer requirements, as applicable. In the case of services not specified as inpatient-only, they are appropriately provided as inpatient services in accordance with the 2-midnight benchmark. Estimated LOS (days): 3 3 days is the estimated time the patient will need to remain in the hospital, assuming treatment plan goals are met and no additional complications. Post-Hospital Plan: Home (Tracy Clark MD) Problem Qualifiers (1) Sepsis: Qualified Code: A41.9 - Sepsis, due to unspecified organism (2) Diabetes mellitus: Qualified Code: E11.9 - Type 2 diabetes mellitus without complication, with long-term current use of insulin Tracy Clark MD August 23, 2016 19:07 Chely Pitts MD August 24, 2016 16:22
--- NOTE | 2016-08-23 19:39 | PD ---
Physical Exam Narrative GENERAL: Well-nourished, well-developed patient. HEAD: Normocephalic EYES: No injection or drainage. NECK: Supple, trachea midline RESPIRATORY: No accessory muscle use. NEUROLOGICAL: Awake. moves extremities, Normal speech. Data Data Last Documented VS Orders Complete Blood Count With Diff (08/23/16 15:48) Comprehensive Metabolic Panel (08/23/16 15:48) B-Type Natriuretic Peptide (08/23/16 15:48) Act Partial Throm Time (Ptt) (08/23/16 15:48) Prothrombin Time / Inr (Pt) (08/23/16 15:48) Magnesium (Mg) (08/23/16 15:48) Ckmb (Isoenzyme) Profile (08/23/16 15:48) Troponin I (08/23/16 15:48) Arterial Blood Gas (Abg) (08/23/16 15:48) Iv Access Insert/Monitor (08/23/16 15:48) Electrocardiogram (08/23/16 15:48) Ecg Monitoring (08/23/16 15:48) Oximetry (08/23/16 15:48) Oxygen Administration (08/23/16 15:48) Chest, Single Ap (08/23/16 15:48) Sodium Chloride 0.9% Flush (Ns Flush) (08/23/16 16:00) Methylprednisolone So Succ Inj (Solumedr (08/23/16 16:00) Albuterol-Ipratropium Neb (Duoneb Neb) (08/23/16 16:00) Resp Bipap / Cpap Non Invas Vt (08/23/16 ) Lactic Acid (08/23/16 15:55) CKMB (08/23/16 16:00) CKMB% (08/23/16 16:00) Dextrose 50% In Titi (Vial) Inj (D50w (Vi (08/23/16 16:45) Sodium Chlor 0.9% 1000 Ml Inj (Ns 1000 M (08/23/16 16:44) Sodium Chlor 0.9% 1000 Ml Inj (Ns 1000 M (08/23/16 16:44) Cefepime Inj (Maxipime Inj) (08/23/16 16:44) Azithromycin Inj (Zithromax Inj) (08/23/16 16:44) Lactic Acid (08/23/16 17:49) Admit Order (Ed Use Only) (08/23/16 18:36) Labs Laboratory Tests Test 08/23/16 16:00 White Blood Count 11.9 TH/MM3 Red Blood Count 3.83 MIL/MM3 Hemoglobin 10.4 GM/DL Hematocrit 32.5 % Mean Corpuscular Volume 84.8 FL Mean Corpuscular Hemoglobin 27.1 PG Mean Corpuscular Hemoglobin 32.0 % Concent Red Cell Distribution Width 17.4 % Platelet Count 400 TH/MM3 Mean Platelet Volume 7.0 FL Neutrophils (%) (Auto) 70.2 % Lymphocytes (%) (Auto) 19.4 % Monocytes (%) (Auto) 8.9 % Eosinophils (%) (Auto) 0.8 % Basophils (%) (Auto) 0.7 % Neutrophils # (Auto) 8.4 TH/MM3 Lymphocytes # (Auto) 2.3 TH/MM3 Monocytes # (Auto) 1.1 TH/MM3 Eosinophils # (Auto) 0.1 TH/MM3 Basophils # (Auto) 0.1 TH/MM3 CBC Comment DIFF FINAL Differential Comment MDM Supervised Visit with KEYANA: Yes Interpretation(s) CBC & BMP Diagram 08/23/16 16:00 Last 24 hours Impressions Chest X-Ray 08/23/16 1548 Signed Impressions: Service Date/Time: , August 23, 2016 16:00 - CONCLUSION: Stable chest appearance Edwin Gastelum MD Narrative Course I, Dr. silver, have reviewed the advance practice practitioner's documentation and am in agreement, met with the patient face to face, made the diagnosis, and the medical decision making was done by me. *My assessment and Findings: 50 y/o female presents with signs of septic shock with significantly elevated lactate, renal failure, concerning sign for pneumonia so she was given IV fluid hydration and bed was switched to the ICU. Patient will be closely monitored there. Sepsis Criteria SIRS Criteria (2 or more): Heart rate over 90, RR > 20 or PaCO2 < 32 Sepsis Criteria (SIRS+source): Infect source susp/known Severe Sepsis (+one): Lactate >2 Septic Shock Criteria: Lactic acid >=4 Criteria Outcome: Meets septic shock criteria Physician Communication Physician Communication resident team agrees to admit in icu with icu consult Diagnosis Primary Impression: Septic shock Additional Impressions: COPD exacerbation Acute kidney injury superimposed on chronic kidney disease Hypoxia Lactic acidosis Hypoglycemia Admitting Information Admitting Physician Requests: Admit Condition: Veronica Peterson MD August 23, 2016 19:39 B-Type Natriuretic Peptide 249 PG/ML Total Protein 7.7 GM/DL Albumin 3.1 GM/DL Blood Gas Puncture Site RT RADIAL Blood Gas Patient Temperature 98.6 Blood Gas HCO3 33 mmol/L Blood Gas Base Excess 8.8 mmol/L Blood Gas Oxygen Saturation 90 % Arterial Blood pH 7.50 Arterial Blood Partial 42 mmHg Pressure CO2 Arterial Blood Partial 69 mmHG Pressure O2 Arterial Blood Oxygen Content 12.1 Vol % Arterial Blood 1.4 % Carboxyhemoglobin Arterial Blood Methemoglobin 0.3 % Blood Gas Hemoglobin 9.5 G/DL Oxygen Delivery Device NASAL CANNULA Blood Gas Liter Flow 3 L/M MDM Interpretation(s) CBC & BMP Diagram 08/23/16 16:00 Narrative Course I, Dr. silver, have reviewed the advance practice practitioner's documentation and am in agreement, met with the patient face to face, made the diagnosis, and the medical decision making was done by me. *My assessment and Findings: 50 y/o female presents with signs of septic shock with significantly elevated lactate, renal failure, concerning sign for pneumonia so she was given IV fluid hydration and bed was switched to the ICU. Patient will be closely monitored there. Sepsis Criteria SIRS Criteria (2 or more): Heart rate over 90, RR > 20 or PaCO2 < 32 Sepsis Criteria (SIRS+source): Infect source susp/known Severe Sepsis (+one): Lactate >2 Septic Shock Criteria: Lactic acid >=4 Criteria Outcome: Meets septic shock criteria Physician Communication Physician Communication resident team agrees to admit in icu with icu consult Diagnosis Primary Impression: Septic shock Additional Impressions: COPD exacerbation Acute kidney injury superimposed on chronic kidney disease Hypoxia Lactic acidosis Admitting Information Admitting Physician Requests: Admit Condition: Veronica Peterson MD August 23, 2016 19:39
[2016-08-23] MEDS ORDERED: GLUCAGON 1 MG/ML VIAL OTHER PRN (19:45)
[2016-08-23] MEDS ORDERED: BISACODYL 10 MG SUPP RECTAL PRN (19:45)
[2016-08-23] MEDS ORDERED: LACTULOSE SYRUP 20 GM/30 ML CUP PO PRN (19:45)
[2016-08-23] MEDS ORDERED: SODIUM CHLORIDE 0.9% FLUSH 10 ML FLUSH IV FLUSH PRN (19:45)
[2016-08-23] MEDS ORDERED: MAGNESIUM HYDROXIDE SUSP 30 ML CUP PO PRN (19:45)
[2016-08-23] MEDS ORDERED: DEXTROSE 50% IN WATER 50 ML VIAL(D50) IV PRN (19:45)
[2016-08-23] MEDS ORDERED: SENNOSIDES 8.6 MG TAB PO PRN (19:45)
[2016-08-23] MEDS ORDERED: NALOXONE HCL 0.4 MG/ML AMP IV PRN (19:45)
[2016-08-23] MEDS ORDERED: MAGNESIUM OXIDE 400 MG TAB PO ONE (20:00)
[2016-08-23] MEDS: RESP: ALBUTEROL 2.5 MG/IPRATROPIUM 0.5 MG NEB (SCH) NEB ×2 (20:06→23:22)
[2016-08-23] MEDS: methylPREDNISolone SOD SUCC 125 MG/2 ML VIAL IVP SCH (20:13)
[2016-08-23] MEDS: SODIUM CHLOR 0.9% 1000 ML INJ 1,000 ML IV SCH ×2 (20:13→22:09)
[2016-08-23] MEDS: INSULIN ASPART SUPPLEMENTAL SCALE SQ SCH (21:00)
[2016-08-23] MEDS ORDERED: INSULIN DETEMIR 100 UNITS/ML VIAL SQ SCH ×2 (21:00)
[2016-08-23] MEDS: BUDESONIDE-FORMOTEROL 160/4.5 MCG INHALER INH SCH (21:00)
[2016-08-23] MEDS: DOCUSATE SODIUM 50 MG/SENNA 8.6 MG TAB PO SCH (22:06)
[2016-08-23] MEDS: GABAPENTIN 400 MG CAP PO SCH (22:06)
[2016-08-23] MEDS: SODIUM CHLORIDE 0.9% FLUSH 10 ML FLUSH IV FLUSH SCH (22:06)
[2016-08-23] MEDS: MONTELUKAST SODIUM 10 MG TAB PO SCH (22:07)
[2016-08-23] MEDS: HEPARIN SODIUM - SQ 10,000 UNITS/ML VIAL SQ SCH (22:09)
[2016-08-23] MEDS: BENZONATATE 100 MG CAP PO PRN (22:22)
[2016-08-23] MEDS: ACETAMINOPHEN 325 MG TAB PO PRN (22:23)
[2016-08-23] MEDS: HYDROXYCHLOROQUINE SULFATE 200 MG TAB PO SCH (22:23)
[2016-08-23 22:55] LABS: BICARBONATE 25.2 MEQ/L (21.0-32.0)
[2016-08-23 23:32] LABS: POTASSIUM 3.9 MEQ/L (3.5-5.1)
[2016-08-24] VITALS (31 sets, daily range): BP systolic 117–160; BP diastolic 64–90; PULSE 78–97; RESP 1–28; TEMP 97.3–99.1; O2SAT 90–99
[2016-08-24] MEDS ORDERED: CALCIUM GLUCONATE 500 MG TAB PO ONE (00:30)
[2016-08-24] MEDS: methylPREDNISolone SOD SUCC 125 MG/2 ML VIAL IVP SCH ×4 (01:16→21:46)
[2016-08-24] MEDS: RESP: ALBUTEROL 2.5 MG/IPRATROPIUM 0.5 MG NEB (SCH) NEB ×6 (03:25→23:24)
[2016-08-24] MEDS: HEPARIN SODIUM - SQ 10,000 UNITS/ML VIAL SQ SCH ×3 (05:16→21:50)
[2016-08-24] MEDS: INSULIN ASPART SUPPLEMENTAL SCALE SQ SCH ×4 (07:00→21:00)
[2016-08-24 07:22] LABS: AUTOMATED NEUTROPHIL # 10.4 TH/MM3 (1.8-7.7); BASOPHIL % 0.2 % (0.0-2.0); HEMATOCRIT 25.4 % (35.0-46.0); HEMO FLAGS DIFF FINAL; LYMPH % 4.3 % (9.0-44.0); LYMPHOCYTE # 0.5 TH/MM3 (1.0-4.8); MEAN CELL VOLUME 85.6 FL (80.0-100.0); MEAN CORPUSCULAR HEMOGLOBIN 28.2 PG (27.0-34.0); MEAN CORPUSCULAR HGB CONC 32.9 % (32.0-36.0); MONO % 1.3 % (0.0-8.0); NEUT % 94.2 % (16.0-70.0); PLATELET COUNT 333 TH/MM3 (150-450); RED BLOOD COUNT 2.97 MIL/MM3 (4.00-5.30); RED CELL DISTRIBUTION WIDTH 17.5 % (11.6-17.2)
[2016-08-24 07:55] LABS: ANION GAP 13 MEQ/L (5-15); BICARBONATE 28.5 MEQ/L (21.0-32.0); BLOOD UREA NITROGEN 38 MG/DL (7-18); CHLORIDE 97 MEQ/L (98-107); GLOMERULAR FILTRATION RATE 23 ML/MIN (>89); MAGNESIUM 1.5 MG/DL (1.5-2.5); POTASSIUM 3.7 MEQ/L (3.5-5.1); SODIUM (NA) 138 MEQ/L (136-145)
[2016-08-24] MEDS: GABAPENTIN 400 MG CAP PO SCH ×2 (07:59→21:47)
[2016-08-24] MEDS: PANTOPRAZOLE SOD 40 MG DELAYED RELEASE TAB PO SCH (07:59)
[2016-08-24] MEDS: DOCUSATE SODIUM 50 MG/SENNA 8.6 MG TAB PO SCH ×2 (08:00→21:00)
[2016-08-24] MEDS: BUDESONIDE-FORMOTEROL 160/4.5 MCG INHALER INH SCH ×2 (08:14→21:00)
[2016-08-24] MEDS: SODIUM CHLOR 0.9% 1000 ML INJ 1,000 ML IV SCH ×3 (08:14→21:50)
[2016-08-24] MEDS: SODIUM CHLORIDE 0.9% FLUSH 10 ML FLUSH IV FLUSH SCH ×2 (08:14→21:47)
--- NOTE | 2016-08-24 08:58 | HHI.FPPN ---
Subjective Remarks No acute events overnight. Patient is now saturating 88-90% on 4L NC. However , she does desat down to 85% upon sitting up in bed. Lactic acid has trended down overnight. She states she feels 50% better this AM and endorses being hungry. Initially on admission there was concern for hypoglycemia and insulin was held. Blood sugars are now elevated. (Deep Sauceda MD R3) Objective Vitals Vital Signs Date Time Temp Pulse Resp B/P Pulse Ox O2 Delivery O2 Flow Rate FiO2 08/24/16 07:37 98 08/24/16 06:00 79 08/24/16 05:00 79 21 158/90 97 08/24/16 04:30 80 22 160/86 97 08/24/16 04:03 98 40 08/24/16 04:00 98.4 82 17 153/85 95 08/24/16 04:00 82 08/24/16 03:30 79 24 150/86 93 08/24/16 03:00 79 18 155/87 99 08/24/16 02:30 80 24 146/84 99 08/24/16 02:00 82 08/24/16 02:00 82 16 142/76 98 08/24/16 01:30 85 1 142/81 91 08/24/16 01:30 93 45 08/24/16 01:00 87 15 135/72 93 08/24/16 00:21 20 08/24/16 00:00 87 08/24/16 00:00 98.9 87 25 120/69 93 08/23/16 23:30 92 12 120/71 95 08/23/16 23:00 91 17 134/76 94 08/23/16 22:00 85 08/23/16 21:15 98.9 87 24 140/76 93 08/23/16 20:08 93 Nasal Cannula 5.00 08/23/16 19:05 88 16 123/61 95 Nasal Cannula 3 08/23/16 18:42 91 18 89/51 92 Nasal Cannula 3 08/23/16 17:30 92 97/54 92 Nasal Cannula 3 08/23/16 16:32 91 Nasal Cannula 3.00 08/23/16 15:52 90 Nasal Cannula 3 08/23/16 15:48 Nasal Cannula 2 08/23/16 15:24 81 5/25/17 15:21 98.7 106 40 92/55 Nasal Cannula I/O 08/23/16 08/23/16 08/23/16 08/24/16 08/24/16 08/24/16 07:00 15:00 23:00 07:00 15:00 23:00 Intake Total 830 ml 1195 ml Balance 830 ml 1195 ml Intake Oral 480 ml 480 ml IV Total 350 ml 715 ml # Voids 1 2 (Deep Sauceda MD R3) Result Diagram: 08/24/16 0609 08/24/16 0609 Objective Remarks GENERAL: Pleasant AA female resting in ICU bed on 4 L NC SKIN: No rashes, ecchymoses or lesions. Cool and dry. HEAD: Atraumatic. Normocephalic. EYES: Extraocular motions intact. NECK: Trachea midline. No lymphadenopathy. CARDIOVASCULAR: Regular rate and rhythm without murmurs, gallops, or rubs. Bilateral LE 1+ edema RESPIRATORY: Clear to auscultation. Breath sounds equal bilaterally. Coarse breath sounds but no wheezes or crackles GASTROINTESTINAL: Abdomen soft, non-tender, obese. No guarding. MUSCULOSKELETAL: No calf tenderness. NEUROLOGICAL: Awake and alert. Cranial nerves II through XII intact. Motor and sensory grossly within normal limits. Five out of 5 muscle strength in all muscle groups. Normal speech. (Deep Sauceda MD R3) A/P Assessment and Plan 50 yo F, hx of COPD, lupus, presenting in COPD exacerbation. Discharge Planning Pending clinical improvement and ability to tolerate home 2L NC. Anticipate discharge to home in 2-3 days. (Deep Sauceda MD R3) Attending Attestation Patient seen and examined. Case reviewed and discussed Agree with plan of care as discussed with me and documented in the resident note. Patient improved, desats quickly with exertion. monitor in ICU x 24h (Chely Pitts MD) Problem List: (1) Sepsis Status: Acute Plan: On admission, patient met septic shock criteria given lactic acid 5, hypotension and renal failure. Hypotension and tachycardia resolved in ER after receiving 2 L bolus. Lactic acid trended down to 2.9, repeat is pending this AM. -Holding Metolazone, Bumex --> will use care with fluids (decrease to 85 ml/hr) -plan as below (2) COPD (chronic obstructive pulmonary disease) Status: Acute Plan: Patient with hx of COPD, admitted with COPD exacerbation, likely due to respiratory infection in clinical setting of sepsis. Leukocytosis to 11k. Blood gas on admission: O2 saturation 90, pH 7.5, PCO2 42. ACS r/o reassuring. Patient is on 3 L NC at home. - Continue Cefepime 2 g IV q24 - renal dose -Continue Azithromycin -Symbicort -Tessalon Pearles prn -Solumedrol 60 mg IV q6h, transition to PO prednisone pending clinical improvement -Christen (3) Acute renal failure Status: Acute Plan: Patient with acute on chronic renal failure. GFR on admission 15, down from baseline of 40s. Likely due to decreased perfusion 2/2 sepsis, now resolving. Cr 3.23 -> 2.[address]-guided needle biopsy of right kidney on 08/01/15. 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 Interstitial fibrosis and tubular atrophy, severe. Arteriosclerosis, severe. -Continue IVF -Consult nephrology (4) Diabetes mellitus Status: Chronic Plan: Home medications: Levemir 20 units BID, Novolog 10 units TIDAC. Hemoglobin A1c 9.5 from 05/02/16. Serum glucose 44 on presentation to emergency department, therefore insulin was held. Last two serum glucose levels : 227, 379. -Restart home Levemir 20 units BID -Hold Novalog 10 units TIDAC -Medium-dose sliding scale -Continue to monitor blood glucose, will consider increasing Levemir (5) Anemia Status: Chronic Plan: Patient with chronic anemia, likely related to chronic kidney disease. Baseline hemoglobin 11. 10.4 on admission, now 8.4 today. Likely dilutional. Will continue to monitor. (6) FEN/PPX Status: Acute Plan: NS at 84 mls/hr Nutrition: 2200 ADA DVT PPX: Heparin GI PPX: Protonix Electrolytes: Mg 1.5, Ca 7.0 -> Replace with 1g Ca+ gluconate. Repeat Ca+ (Deep Sauceda MD R3) Problem Qualifiers (1) Sepsis: Qualified Code: A41.9 - Sepsis, due to unspecified organism (2) Diabetes mellitus: Qualified Code: E11.9 - Type 2 diabetes mellitus without complication, with long-term current use of insulin Deep Sauceda MD R3 August 24, 2016 08:58 Chely Pitts MD August 24, 2016 16:09
[2016-08-24] MEDS ORDERED: INSULIN DETEMIR 100 UNITS/ML VIAL SQ SCH (09:00)
[2016-08-24] MEDS ORDERED: METOLAZONE 5 MG TAB PO SCH (09:00)
[2016-08-24] MEDS: INSULIN DETEMIR 100 UNITS/ML VIAL SQ SCH ×2 (09:00→21:00)
[2016-08-24] MEDS ORDERED: CALCIUM GLUCONATE INJ 1 GM in SODIUM CHLORIDE 0.9% INJ 100 ML IV ONE (10:15)
[2016-08-24] MEDS ORDERED: hydrALAZINE HCL 20 MG/ML VIAL IV PRN (11:00)
[2016-08-24] MEDS: ACETAMINOPHEN 325 MG TAB PO PRN ×2 (12:35→21:50)
[2016-08-24] MEDS: HYDROXYCHLOROQUINE SULFATE 200 MG TAB PO SCH ×2 (12:35→21:48)
[2016-08-24] MEDS: BENZONATATE 100 MG CAP PO PRN ×2 (12:41→21:48)
--- NOTE | 2016-08-24 14:24 | EKG ---
Date Performed: 08/23/2016 Time Performed: 16:47:40 PTAGE: 50 years EKG: Sinus rhythm POSSIBLE ANTERIOR MYOCARDIAL INFARCTION BORDERLINE ECG Compared to prior tracing no significant perez mike PREVIOUS TRACING : 07/07/2016 17.32 DOCTOR: Giovanny Clark Interpretating Date/Time 08/24/2016 14:21:12
--- NOTE | 2016-08-24 14:24 | EKG ---
Date Performed: 08/24/2016 Time Performed: 06:22:12 PTAGE: 50 years EKG: Sinus rhythm . Anterior infarct - age undetermined Inferior T wave changes are nonspecific Low QRS voltages in pre cordial leads Compared to prior tracing no significant change Abnormal ECG PREVIOUS TRACING : 08/23/2016 23.57 DOCTOR: Giovanny Clark Interpretating Date/Time 08/24/2016 14:21:27
--- NOTE | 2016-08-24 14:24 | EKG ---
Date Performed: 08/23/2016 Time Performed: 23:57:14 PTAGE: 50 years EKG: Sinus rhythm . Possible anterior infarct - age undetermined Compared to prior tracing no significant change Abnorm al ECG PREVIOUS TRACING : 08/23/2016 16.47 DOCTOR: Giovanny Clark Interpretating Date/Time 08/24/2016 14:21:19
--- NOTE | 2016-08-24 14:34 | PD.CONS ---
HPI Consult Requested By Reason for Consult Acute on chronic renal sufficiency. Primary Care Physician Dao Engle MD History of Present Illness This patient is a 50-year-old Afro-Y[place]i female with a history of significant intrinsic pulmonary disease etiology uncertain. Patient also has a history of CKD stage III. Question of a history of lupus also. Renal biopsy was performed August 01, 2015 which revealed diabetic kidney disease but no evidence of autoimmune process. There is also evidence of severe interstitial fibrosis and tubular atrophy both poor prognostic indicators as far as preservation of renal function is concerned for the future. This was discussed with the patient previously. Biopsy or sure showed severe arteriosclerosis. Patient was seen in the office several days ago and appeared to be clinically stable at that time with a significant improvement in her fluid retention. Patient indicated however the following Saturday she felt that she was developing a respiratory tract infection. Subsequently became very dyspneic. She has been producing some yellow phlegm but no hemoptysis. Subsequently there was a fall in her oxygenation and on presentation to the emergency room was noted to have a blood pressure of 89 of 51. Lactic acid level was elevated to 5.5 and a creatinine had risen from a previous baseline of approximately 1.6 to a level of 3.23. Creatinine level improved to a level of 2.63 day of consultation. Review of Systems Constitutional: COMPLAINS OF: Fatigue, Weight loss, DENIES: Diaphoretic episodes, Fever, Weight gain, Chills, Dizziness, Change in appetite, Night Sweats Respiratory: COMPLAINS OF: Cough, Wheezing, Sputum production, Shortness of breath, DENIES: Apneas, Snoring, Hemoptysis Cardiovascular: COMPLAINS OF: Dyspnea on Exertion, DENIES: Chest pain, Palpitations, Syncope, PND, Lower Extremity Edema, Orthopnea, Claudication Gastrointestinal: DENIES: Abdominal pain, Black stools, Bloody stools, Constipation, Diarrhea, Nausea, Vomiting, Difficulty Swallowing, Anorexia Musculoskeletal: COMPLAINS OF: Joint pain, DENIES: Muscle aches, Stiffness, Joint Swelling, Back pain, Neck pain Past Family Social History Allergies: Coded Allergies: *MDRO Multi-Drug Resistant Organism (Verified Adverse Reaction, Unknown, ) 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 Pt does not require isolation for hx of MDRO prior to 05/11/15* Past Medical History Chronic kidney disease stage III secondary biopsy proven diabetic nephropathy with associated severe interstitial fibrosis and tubular atrophy with arteriosclerosis severe on August 01, 2015. COPD? Lupus? Gastroesophageal reflux disease Diabetes mellitus. Past Surgical History Noncontributory to current complaint. Reported Medications Reported Meds & Active Scripts Active Tessalon Perles (Benzonatate) 100 Mg Cap 200 Mg PO TID PRN Oxygen tank (Oxygen) 1 Ea Tank 2 Liter VARSHA.CANULA CONTINUOUS Oxygen Concentrator Portable Gaseous 2 L/min via Nasal Cannula Continuous For 99 months Metolazone 5 Mg Tab 5 Mg PO TID Duoneb (Ipratropium-Albuterol Neb) 0.5-2.5 Mg/3 Ml Neb 1 Nebule INH HS Ferrous Sulfate 325 Mg Tab 325 Mg PO BID [Physical Therapy] Prednisone 10 Mg Tab 10 Mg PO DAILY take 40mg for 3 days, take 30mg for 3 days, take 20 mg for 3 days take 10 mg for 3 days, take 5mg for 3 days Novolog Inj (Insulin Aspart) 100 Unit/Ml Inj 30 Units SQ ACHS SLIDING SCALE Levemir Inj (Insulin Detemir) 1,000 unit/ 10 ML Vial 40 Units SQ BID Hydroxychloroquine (Hydroxychloroquine Sulfate) 200 Mg Tab 200 Mg PO Q12HR Neurontin (Gabapentin) 300 Mg Cap 300 Mg PO DAILY 30 Days Symbicort Inh (Budesonide/Formoterol Fumarate) 160-4.5 Mcg/Act Aero 2 Puff INH Q12HR Reported Chlorhexidine Gluconate (Mouth) Liq (Chlorhexidine Gluconate) 0.12% Soln Unknown Dose SWISH-SPIT BID Aspirin 81 Mg Tabdr 81 Mg PO DAILY Bumex (Bumetanide) 2 Mg Tab 2 Mg PO BID Ventolin Hfa 18 GM Inh (Albuterol Sulfate) 90 Mcg/Act Aer 2 Puff INH Q4H PRN Singulair (Montelukast Sodium) 10 Mg Tab 10 Mg PO HS Albuterol Neb (Albuterol Sulfate) 2.5 Mg/0.5 Ml Neb 2.5 Mg NEB Q4HR NEB PRN Note: The Albuterol Sulfate Inhalation Solution is concentrated and must be diluted. Read complete instructions carefully before using. Protonix (Pantoprazole Sodium) 40 Mg Tab 40 Mg PO DAILY Multivitamin Adults (Multiple Vitamins W/ Minerals) 1 Tab 1 Tab PO DAILY Gabapentin 800 Mg Tab 800 Mg PO BID Active Ordered Medications Current Medications Sodium Chloride (NS Flush) 2 ml UNSCH PRN IVF FLUSH AFTER USING IV ACCESS; Start 08/23/16 at 16:00; Stop 08/23/16 at 19:47; Status DC Methylprednisolone Sodium Succinate (SoluMEDROL INJ) 125 mg ONCE ONCE IVP Last administered on 08/23/16 15:57; Start 08/23/16 at 16:00; Stop 08/23/16 at 16:01; Status DC Albuterol/ Ipratropium (Duoneb Neb) 1 ampule Q15M INH Last administered on 08/23 16:33; Start 08/23/16 at 16:00; Stop 08/23/16 at 16:31; Status DC Dextrose 25 ml 25 ml ONCE ONCE IV PUSH Last administered on 08/23/16 16:40; Start 08/23/16 at 16:45; Stop 08/23/16 at 16:46; Status DC Sodium Chloride 1,000 ml @ 1,000 mls/hr Q1H ONCE IV Last administered on 17:08; Start 08/23/16 at 16:44; Stop 08/23/16 at 17:43; Status DC Sodium Chloride 1,000 ml @ 1,000 mls/hr Q1H ONCE IV Last administered on 17:09; Start 08/23/16 at 16:44; Stop 08/23/16 at 17:43; Status DC Cefepime HCl 2000 mg/Sodium Chloride 100 ml @ 200 mls/hr ONCE STAT IV Last administered on 08/23/16 19:10; Start 08/23/16 at 16:44; Stop 08/23/16 at 17:13 ; Status DC Azithromycin/ Sodium Chloride (Zithromax Inj/ NS 250 ml Inj) 250 ml @ 250 mls/ hr ONCE STAT IV Last administered on 08/23/16 17:08; Start 08/23/16 at 16:44 ; Stop 08/23/16 at 17:43; Status DC Albuterol Sulfate (Albuterol Concentrated Neb) 2.5 mg Q4HR NEB PRN NEB SHORTNESS OF BREATH; Start 08/23/16 at 19:45 Benzonatate (Tessalon) 200 mg TID PRN PO cough Last administered on 08/24/16 12:41; Start 08/23/16 at 19:45 Budesonide/ Formoterol Fumarate (Symbicort 160-4.5 Inh) 2 puff Q12HR INH ; Start 08/23/16 at 21:00 Gabapentin (Neurontin) 800 mg BID PO Last administered on 08/24/16 07:59; Start 08/23/16 at 21:00 Hydroxychloroquine Sulfate (Plaquenil) 200 mg Q12HR PO Last administered on 12:35; Start 08/23/16 at 21:00 Insulin Detemir (Levemir Inj) 40 units BID SQ ; Start 08/23/16 at 21:00; Stop at 21:00; Status DC Metolazone (Zaroxolyn) 5 mg TID PO ; Start 08/24/16 at 09:00; Stop 08/24/16 at 09:00; Status DC Montelukast Sodium (Singulair) 10 mg HS PO Last administered on 08/23/16 22:07 ; Start 08/23/16 at 21:00 Pantoprazole Sodium 40 mg 40 mg DAILY PO Last administered on 08/24/16 07:59; Start 08/24/16 at 09:00 Sodium Chloride (NS 1000 ml Inj) 1,000 ml @ 125 mls/hr Q8H IV Last administered on 08/24/16 08:14; Start 08/23/16 at 19:33; Stop 08/24/16 at 09:50 ; Status DC Sodium Chloride (NS Flush) 2 ml UNSCH PRN IV FLUSH FLUSH AFTER USING IV ACCESS ; Start 08/23/16 at 19:45 Sodium Chloride (NS Flush) 2 ml BID IV FLUSH Last administered on 08/24/16 08: 14; Start 08/23/16 at 21:00 Acetaminophen (Tylenol) 650 mg Q4H PRN PO Headache or TEMP > 100.4 Last administered on 08/24/16 12:35; Start 08/23/16 at 19:45 Zolpidem Tartrate (Ambien) 5 mg HS PRN PO INSOMNIA; Start 08/23/16 at 19:45 Naloxone HCl (Narcan Inj) 0.4 mg UNSCH PRN IV SEE LABEL COMMENTS; Start at 19:45 Senna/Docusate Sodium (Galina-Colace) 1 tab BID PO Last administered on 08:00; Start 08/23/16 at 21:00 Magnesium Hydroxide (Milk Of Magnesia Liq) 30 ml Q12H PRN PO MILD - MODERATE CONSTIPATION; Start 08/23/16 at 19:45 Sennosides (Senokot) 17.2 mg Q12H PRN PO MODERATE - SEVERE CONSTIPATION; Start 08/23/16 at 19:45 Bisacodyl (Dulcolax Supp) 10 mg DAILY PRN RECTAL SEVERE CONSITIPATION; Start at 19:45 Lactulose (Lactulose Liq) 30 ml DAILY PRN PO SEVERE CONSITIPATION; Start at 19:45 Albuterol/ Ipratropium (Duoneb Neb) 1 ampule Q4HR NEB NEB Last administered on 08/24/16 12:12; Start 08/23/16 at 20:00 Methylprednisolone Sodium Succinate (SoluMEDROL INJ) 60 mg Q6H IVP Last administered on 08/24/16 12:36; Start 08/23/16 at 20:00 Azithromycin (Zithromax) 500 mg Q24H PO ; Start 08/24/16 at 16:00; Stop at 15:59 Heparin Sodium (Porcine) (Heparin Inj) 5,000 units Q8HR SQ Last administered on 08/24/16 12:36; Start 08/23/16 at 22:00 Dextrose (D50w (Vial) Inj) 50 ml UNSCH PRN IV HYPOGLYCEMIA-SEE COMMENTS; Start 08/23/16 at 19:45 Glucagon (Glucagon Inj) 1 mg UNSCH PRN OTHER HYPOGLYCEMIA-SEE COMMENTS; Start 08/23/16 at 19:45 Insulin Aspart (NovoLOG SUPPLEMENTAL SCALE) 1 ACHS SLIDING SCALE SQ Last administered on 08/24/16 07:00; Start 08/23/16 at 21:00; Stop 08/24/16 at 10:01 ; Status DC Insulin Detemir (Levemir Inj) 20 units BID SQ ; Start 08/23/16 at 21:00; Stop at 21:00; Status DC Magnesium Oxide 400 mg 400 mg ONCE ONCE PO Last administered on 08/23/16 20: 13; Start 08/23/16 at 20:00; Stop 08/23/16 at 20:01; Status DC Cefepime HCl/ Sodium Chloride (Maxipime Inj/NS Inj) 100 ml @ 200 mls/hr Q24H IV ; Start 08/24/16 at 19:00 Calcium Gluconate (Calcium Gluconate) 500 mg ONCE ONCE PO Last administered on 08/24/16 01:16; Start 08/24/16 at 00:30; Stop 08/24/16 at 00:31; Status DC Insulin Detemir (Levemir Inj) 10 units Q12HR SQ ; Start 08/24/16 at 09:00; Stop 08/24/16 at 09:00; Status DC Insulin Detemir 20 units 20 units Q12HR SQ Last administered on 08/24/16 09:00 ; Start 08/24/16 at 09:00 Sodium Chloride (NS 1000 ml Inj) 1,000 ml @ 84 mls/hr [id number] IV Last administered on 08/24/16 10:00; Start 08/24/16 at 10:00 Insulin Aspart 1 1 ACHS SLIDING SCALE SQ Last administered on 08/24/16 11:00 ; Start 08/24/16 at 11:00 Calcium Gluconate/ Sodium Chloride (Calcium Gluconate Inj/NS Inj) 110 ml @ 110 mls/hr ONCE ONCE IV Last administered on 08/24/16 12:52; Start 08/24/16 at 10 :15; Stop 08/24/16 at 11:14; Status DC Hydralazine HCl (Apresoline Inj) 10 mg Q6H PRN IV sbp/dbp > 170/100; Start at 11:00 Family History Please see H&P for details. Social History Should tobacco use several years ago but not currently. No history of illicit drug use. Physical Exam Vital Signs Vital Signs Date Time Temp Pulse Resp B/P Pulse Ox O2 Delivery O2 Flow Rate FiO2 08/24/16 12:00 82 08/24/16 12:00 98.0 82 24 158/81 94 08/24/16 10:00 81 08/24/16 08:00 97.3 78 26 160/89 97 08/24/16 08:00 78 08/24/16 07:37 98 08/24/16 06:00 79 08/24/16 05:00 79 21 158/90 97 08/24/16 04:30 80 22 160/86 97 08/24/16 04:03 98 40 08/24/16 04:00 98.4 82 17 153/85 95 08/24/16 04:00 82 08/24/16 03:30 79 24 150/86 93 08/24/16 03:00 79 18 155/87 99 08/24/16 02:30 80 24 146/84 99 08/24/16 02:00 82 08/24/16 02:00 82 16 142/76 98 08/24/16 01:30 85 1 142/81 91 08/24/16 01:30 93 45 08/24/16 01:00 87 15 135/72 93 08/24/16 00:21 20 08/24/16 00:00 87 08/24/16 00:00 98.9 87 25 120/69 93 08/23/16 23:30 92 12 120/71 95 08/23/16 23:00 91 17 134/76 94 08/23/16 22:00 85 08/23/16 21:15 98.9 87 24 140/76 93 08/23/16 20:08 93 Nasal Cannula 5.00 08/23/16 19:05 88 16 123/61 95 Nasal Cannula 3 08/23/16 18:42 91 18 89/51 92 Nasal Cannula 3 08/23/16 17:30 92 97/54 92 Nasal Cannula 3 08/23/16 16:32 91 Nasal Cannula 3.00 08/23/16 15:52 90 Nasal Cannula 3 08/23/16 15:48 Nasal Cannula 2 08/23/16 15:24 81 08/23/16 15:21 98.7 106 40 92/55 Nasal Cannula Physical Exam GENERAL: Patient appears to have mild dyspnea at rest. SKIN: Warm and dry. HEAD: Normocephalic. EYES: No scleral icterus. No injection or drainage. NECK: Supple, trachea midline. No JVD or lymphadenopathy. CARDIOVASCULAR: Regular rate and rhythm without murmurs, gallops, or rubs. RESPIRATORY: Breath sounds equal bilaterally. Diffuse expiratory wheezes. Fine crackles in bases. Chronic. GASTROINTESTINAL: Abdomen soft, non-tender, nondistended. MUSCULOSKELETAL: No cyanosis, trace edema ankles. BACK: Nontender without obvious deformity. No CVA tenderness. Laboratory Laboratory Tests Test 08/23/16 08/23/16 08/23/16 08/23/16 16:00 16:39 18:25 21:10 White Blood Count 11.9 Red Blood Count 3.83 Hemoglobin 10.4 Hematocrit 32.5 Mean Corpuscular Volume 84.8 Mean Corpuscular Hemoglobin 27.1 Mean Corpuscular Hemoglobin 32.0 Concent Red Cell Distribution Width 17.4 Platelet Count 400 Mean Platelet Volume 7.0 Neutrophils (%) (Auto) 70.2 Lymphocytes (%) (Auto) 19.4 Monocytes (%) (Auto) 8.9 Eosinophils (%) (Auto) 0.8 Basophils (%) (Auto) 0.7 Neutrophils # (Auto) 8.4 Lymphocytes # (Auto) 2.3 Monocytes # (Auto) 1.1 Eosinophils # (Auto) 0.1 Basophils # (Auto) 0.1 CBC Comment DIFF FINAL Differential Comment Prothrombin Time 11.1 Prothromb Time International 1.0 Ratio Activated Partial 28.3 Thromboplast Time Sodium Level 139 Potassium Level 3.5 Chloride Level 94 Carbon Dioxide Level 32.4 Anion Gap 13 Blood Urea Nitrogen 38 Creatinine 3.77 Estimat Glomerular Filtration 15 Rate Random Glucose 44 Lactic Acid Level 5.5 2.9 Calcium Level 7.8 Magnesium Level 1.4 Total Bilirubin 0.3 Aspartate Amino Transf 35 (AST/SGOT) Alanine Aminotransferase 28 (ALT/SGPT) Alkaline Phosphatase 114 Total Creatine Kinase 308 Creatine Kinase MB 0.9 Creatine Kinase MB % 0.3 Troponin I LESS THAN 0.02 B-Type Natriuretic Peptide 249 Total Protein 7.7 Albumin 3.1 Blood Gas Puncture Site RT RADIAL Blood Gas Patient Temperature 98.6 Blood Gas HCO3 33 Blood Gas Base Excess 8.8 Blood Gas Oxygen Saturation 90 Arterial Blood pH 7.50 Arterial Blood Partial 42 Pressure CO2 Arterial Blood Partial 69 Pressure O2 Arterial Blood Oxygen Content 12.1 Arterial Blood 1.4 Carboxyhemoglobin Arterial Blood Methemoglobin 0.3 Blood Gas Hemoglobin 9.5 Oxygen Delivery Device NASAL CANNULA Blood Gas Liter Flow 3 Nasal Screen MRSA (PCR) MRSA NOT DETECTED Test 08/23/16 08/24/16 08/24/16 08/24/16 21:50 00:20 06:09 11:00 Sodium Level 137 138 Potassium Level 3.9 3.7 Chloride Level 98 97 Carbon Dioxide Level 25.2 28.5 Anion Gap 14 13 Blood Urea Nitrogen 39 38 Creatinine 3.23 2.62 Estimat Glomerular Filtration 18 23 Rate Random Glucose 227 379 Calcium Level 6.8 7.0 Protein Corrected Calcium 7.0 7.0 Total Protein 6.7 7.2 Troponin I LESS THAN 0.02 LESS THAN 0.02 White Blood Count 11.0 Red Blood Count 2.97 Hemoglobin 8.4 Hematocrit 25.4 Mean Corpuscular Volume 85.6 Mean Corpuscular Hemoglobin 28.2 Mean Corpuscular Hemoglobin 32.9 Concent Red Cell Distribution Width 17.5 Platelet Count 333 Mean Platelet Volume 7.2 Neutrophils (%) (Auto) 94.2 Lymphocytes (%) (Auto) 4.3 Monocytes (%) (Auto) 1.3 Eosinophils (%) (Auto) 0.0 Basophils (%) (Auto) 0.2 Neutrophils # (Auto) 10.4 Lymphocytes # (Auto) 0.5 Monocytes # (Auto) 0.1 Eosinophils # (Auto) 0.0 Basophils # (Auto) 0.0 CBC Comment DIFF FINAL Differential Comment Magnesium Level 1.5 25-Hydroxy Vitamin D Total 67.6 Lactic Acid Level 2.1 Date/Time Procedure Status Source Growth 08/24/16 00:20 Aerobic Blood Culture Received Blood Peripheral Pending 08/24/16 00:20 Anaerobic Blood Culture Received Blood Peripheral Pending Result Diagram: 08/24/16 0609 08/24/16 0609 Imaging Last 48 hours Impressions Chest X-Ray 08/23/16 1548 Signed Impressions: Service Date/Time: July 16:00 - CONCLUSION: Stable chest appearance Edwin Gastelum MD Assessment and Plan Problem List: (1) Acute kidney injury superimposed on chronic kidney disease Plan: Acute renal insufficiency probably related to hypotension on presentation. Creatinine level appears to be improving however continue to monitor. Volume status appears to be stable. Need to monitor however she does have a tendency to develop fluid overload. Medications should be adjusted for the patient's estimated GFR if clinically indicated. Avoid agents with significant potential for nephrotoxicity possible including NSAIDs for analgesia, iodine contrast agents. Gadolinium is contraindicated if the GFR is below 30. (2) Acute exacerbation of chronic obstructive pulmonary disease Plan: Question of whether not this is entirely COPD or they could be another intrinsic pulmonary process occurring. Patient is having difficulty establishing with an outpatient mop maker secondary to insurance issues. Would consider pulmonary consultation while in-house if okay with primary care physician. We'll defer to primary regarding consultation and not however. (3) CKD (chronic kidney disease) stage 3, GFR 30-59 ml/min Plan: As mentioned above biopsy proven diabetic nephropathy with superimposed arteriosclerosis severe. Severe interstitial fibrosis and tubular atrophy were present on the biopsy about a year ago which are poor prognostic indicators as far as preservation of renal function is concerned for the future. Patient aware of same. (4) Hypocalcemia Plan: Agreed vitamin D level. Also check intact PTH level. (5) Essential hypertension Izabel Day MD August 24, 2016 14:33
[2016-08-24] MEDS: AZITHROMYCIN 250 MG TAB PO SCH (16:59)
--- NOTE | 2016-08-24 17:47 | MB ---
cc: PINA BAKER DATE OF CONSULTATION 08/24/[address] Sauceda REASON FOR CONSULTATION Pulmonary management and hypoxia. HISTORY OF PRESENT ILLNESS Ms. See is a 50-year-old female with a history of COPD, lupus and sarcoidosis. The was on home oxygen therapy. She came to the hospital with worsening of her shortness of breath and oxygen saturation was in 70s. She was having some twitching movements of the muscles and jerky movements of the neck. She did not have any difficulty swallowing, no chest pain. No nausea or vomiting. No loss of consciousness. With these symptoms, she came to the hospital. She had a workup done. Her WBC count is 11,000, hemoglobin 8.4, hematocrit 25.4, MCV 85m platelet count 333. Sodium 138, potassium 3.7, chloride 97, CO2 28, BUN 38, creatinine 2.62. Her blood gas on 3 liters nasal cannula - pH 7.50, pCO2 42, pO2 67, bicarb 33. PAST MEDICAL HISTORY 1. History of COPD, 2. Obstructive sleep apnea, 3. Lupus 4. Diabetes mellitus, 5. Chronic kidney disease, 6. History of ankle surgery. MEDICATIONS Currently 1. cefepime 2 grams q.24 h 2. Zithromax 500 mg a day 3. solumedrol 40 mg q 6 hours 4. Protonix 40 mg a day. 5. Insulin q. 12-hour. 6. Heparin 5000 q.8 h. 7. Symbicort 160/4.5 2 puffs twice a day. 8. Neurontin 800 mg twice a day. 9. Plaquenil 200 mg twice a day. 10. Singulair 10 mg a day. 11. Solu-Medrol 60 mg q.6 h ALLERGIES NO KNOWN DRUG ALLERGIES. SOCIAL HISTORY She is a . She worked at [employer] as a [employer]. No history of smoking or alcohol abuse. FAMILY HISTORY She has one daughter. REVIEW OF SYSTEMS She has shortness of breath with any activity, uses oxygen all the time. No DVT or pulmonary embolism. No seizure, stroke or epilepsy. PHYSICAL EXAMINATION GENERAL: An obese female mildly short of breath. VITAL SIGNS: Blood pressure 117/64, heart rate 97, respirations 26, temperature 99.1 HEENT: Pupils are equal and reactive to light. Oral mucosa, nasal mucosa normal. NECK: Supple. JVP not raised. CHEST: Equal air entry bilaterally. No rhonchi. CARDIOVASCULAR: S1, S2 normal. ABDOMEN: Soft, nondistended. Bowel sounds are present. EXTREMITIES: No edema. 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 No focal deficits. IMPRESSION 1. Shortness of breath with hypoxia 2. COPD. 3. Gastroesophageal reflux disease 4. Diabetes mellitus. 5. Chronic kidney disease with diabetic nephropathy and severe interstitial fibrosis. PLAN I discussed with the patient we will supplement her oxygenm. Continue IV Solu-Medrol aerosol treatment. She is on antibiotic. We will get a CT scan of the chest without contrast. Once she gets better, we will check her pulmonary function study. If there is no clear etiology for her shortness of breath, we will consider lung biopsy. Further treatment will depend on the course in the hospital. Thank you Dr. Sauceda for this consultation. MD WOO Gonzalez/ /4:59 PM /5:24 PM [email or web address]
[2016-08-24] MEDS: CEFEPIME INJ 2,000 MG in SODIUM CHLORIDE 0.9% INJ 100 ML IV SCH (17:49)
[2016-08-24] MEDS: CALCIUM CARBONATE 1.25 GM (CA 500 MG) TAB PO SCH (21:47)
[2016-08-24] MEDS: MONTELUKAST SODIUM 10 MG TAB PO SCH (22:04)
--- NOTE | 2016-08-24 23:05 | RADRPT ---
EXAM DATE/TIME: 08/24/2016 22:49 [facility] COMPARISON: CT PULMONARY ANGIOGRAM, October 07, 2014, 12:42. INDICATIONS : Shortness of breath; follow up chest x-ray. RADIATION DOSE: 7.96 CTDIvol (mGy) MEDICAL HISTORY : Chronic obstructive pulmonary disease. Hypertension. Diabetes mellitus type 2. Lupus, pulmonary edema . SURGICAL HISTORY : None. ENCOUNTER: Initial ACUITY: 1 day PAIN SCALE: 0/10 LOCATION: Bilateral chest TECHNIQUE: Volumetric scanning of the chest was performed. Using automated exposure control and adjustment of t he mA and/or kV according to patient size, radiation dose was kept as low as reasonably achievable to obtain optimal diagnostic quality images. FINDINGS: LUNGS: There is no pneumothorax. Some peripheral reticulonodular infiltrates and bronchiectasis throughout t he lungs similar to 2015. No concerning pulmonary nodule is visualized. PLEURAE: There is no pleural thickening or pleural effusion. MEDIASTINUM: The heart and great vessels demonstrate no acute abnormality. Mediastinal lymphadenopathy clearly sma ller than in 2015. AXILLAE: Within normal limits. No lymphadenopathy. MUSCULOSKELETAL: Within normal limits for patient age. MISCELLANEOUS: The visualized upper abdominal organs demonstrate no acute abnormality. CONCLUSION: No significant infiltrate or mass. Chronic interstitial lung disease with diffuse bronchiectasis. Med iastinal lymphadenopathy clearly smaller than in 2015. Erick Mack MD on August 24, 2016 at 23:02 Board Certified Radiologist. This report was verified electronically.
[2016-08-25] VITALS (22 sets, daily range): BP systolic 15–162; BP diastolic 68–88; PULSE 78–89; RESP 16–27; TEMP 97.9–98.8; O2SAT 93–100
[2016-08-25] MEDS: RESP: ALBUTEROL 2.5 MG/IPRATROPIUM 0.5 MG NEB (SCH) NEB ×5 (03:18→19:58)
[2016-08-25] MEDS: methylPREDNISolone SOD SUCC 125 MG/2 ML VIAL IVP SCH ×4 (04:43→21:20)
[2016-08-25] MEDS: HEPARIN SODIUM - SQ 10,000 UNITS/ML VIAL SQ SCH ×3 (04:43→21:23)
[2016-08-25] MEDS: BENZONATATE 100 MG CAP PO PRN ×2 (04:43→21:23)
[2016-08-25] MEDS: ACETAMINOPHEN 325 MG TAB PO PRN ×3 (04:44→21:23)
[2016-08-25] MEDS: INSULIN ASPART SUPPLEMENTAL SCALE SQ SCH ×4 (07:23→21:00)
[2016-08-25 07:42] LABS: AUTOMATED NEUTROPHIL # 9.7 TH/MM3 (1.8-7.7); BASOPHIL % 0.1 % (0.0-2.0); HEMO FLAGS DIFF FINAL; LYMPH % 4.6 % (9.0-44.0); LYMPHOCYTE # 0.5 TH/MM3 (1.0-4.8); MEAN CELL VOLUME 85.8 FL (80.0-100.0); MEAN CORPUSCULAR HEMOGLOBIN 27.1 PG (27.0-34.0); MEAN CORPUSCULAR HGB CONC 31.6 % (32.0-36.0); MONO % 3.6 % (0.0-8.0); NEUT % 91.7 % (16.0-70.0); PLATELET COUNT 338 TH/MM3 (150-450); RED CELL DISTRIBUTION WIDTH 17.3 % (11.6-17.2); WHITE BLOOD COUNT 10.6 TH/MM3 (4.0-11.0)
[2016-08-25 08:16] LABS: BICARBONATE 28.5 MEQ/L (21.0-32.0); MAGNESIUM 1.7 MG/DL (1.5-2.5); POTASSIUM 3.5 MEQ/L (3.5-5.1)
--- NOTE | 2016-08-25 08:35 | HHI.FPPN ---
Subjective Remarks Overnight, patient was on BiPAP. She typically is on CPAP at home but does not have machine with her. Otherwise, yesterday afternoon and this morning, sat's have been maintained at 92-93% on 4 L NC. She reports eating well. She does continue to desat to mid 80's when sitting up for exam or with movement. She was evaluated by pulmonology last night. CT showed chronic interstitial disease and diffuse bronchiectasis w/ stable mediastinal lymphadenopathy. Blood sugars have been labile over the past 24 hrs. Denies any fevers. (Deep Sauceda MD R3) Objective Vitals Vital Signs Date Time Temp Pulse Resp B/P Pulse Ox O2 Delivery O2 Flow Rate FiO2 08/25/16 08:01 95 Nasal Cannula 4.00 08/25/16 08:00 97.9 81 20 161/76 100 08/25/16 06:00 79 08/25/16 05:54 19 08/25/16 05:00 79 19 147/70 100 08/25/16 04:30 82 21 146/68 100 08/25/16 04:28 100 40 08/25/16 04:00 97.9 82 16 153/83 100 08/25/16 04:00 82 08/25/16 03:30 82 26 143/79 93 08/25/16 03:00 78 19 145/74 100 08/25/16 02:30 84 20 121/74 99 08/25/16 02:00 79 08/25/16 02:00 79 17 153/78 100 08/25/16 01:33 99 40 08/25/16 01:00 82 22 99 08/25/16 00:30 86 08/25/16 00:30 86 27 152/74 99 08/25/16 00:00 98.4 85 26 157/78 99 08/25/16 00:00 85 08/24/16 23:30 80 08/24/16 23:30 80 27 152/80 94 08/24/16 23:02 80 08/24/16 23:02 80 5 156/79 95 08/24/16 23:00 94 08/24/16 23:00 94 08/24/16 22:30 81 08/24/16 22:30 81 25 141/70 98 08/24/16 22:24 97 40 08/24/16 22:00 83 24 135/70 98 08/24/16 22:00 83 08/24/16 21:00 86 08/24/16 21:00 86 22 91 08/24/16 20:08 95 Nasal Cannula 4.00 08/24/16 20:00 98.5 79 19 92 08/24/16 20:00 79 08/24/16 19:00 82 28 90 08/24/16 18:10 82 16 150/73 92 08/24/16 18:00 82 17 92 08/24/16 18:00 82 08/24/16 17:00 83 27 91 08/24/16 16:00 99.1 97 26 117/64 94 08/24/16 16:00 97 08/24/16 14:00 80 08/24/16 12:00 82 08/24/16 12:00 98.0 82 24 158/81 94 08/24/16 10:00 81 I/O 08/24/16 08/24/16 08/24/16 08/25/16 08/25/16 08/25/16 07:00 15:00 23:00 07:00 15:00 23:00 Intake Total 1195 ml 1218 ml 870 ml 1054 ml Output Total 1642 ml 2 ml 0 ml Balance 1195 ml -424 ml 868 ml 1054 ml Intake Oral 480 ml 800 ml 600 ml 240 ml IV Total 715 ml 418 ml 270 ml 814 ml Output Urine Total 1640 ml Stool Total 2 ml 2 ml 0 ml # Voids 2 2 2 (Deep Sauceda MD R3) Result Diagram: 08/25/1662108/25/16621 Objective Remarks GENERAL: Pleasant AA female resting in ICU bed on 4 L NC, desats to 83% upon sitting up. SKIN: No rashes, ecchymoses or lesions. Cool and dry. HEAD: Atraumatic. Normocephalic. EYES: Extraocular motions intact. NECK: Trachea midline. No lymphadenopathy. CARDIOVASCULAR: Regular rate and rhythm without murmurs, gallops, or rubs. No LE edema. RESPIRATORY: Clear to auscultation. Breath sounds equal bilaterally. Coarse breath sounds with light crackles bilaterally at lung bases. GASTROINTESTINAL: Abdomen soft, non-tender, obese. No guarding. MUSCULOSKELETAL: No calf tenderness. NEUROLOGICAL: Awake and alert. Cranial nerves II through XII intact. Motor and sensory grossly within normal limits. Five out of 5 muscle strength in all muscle groups. Normal speech. (Deep Sauceda MD R3) A/P Assessment and Plan 50 yo F, hx of COPD, lupus, presenting in COPD exacerbation. Discharge Planning Pending clinical improvement and ability to tolerate home 2L NC. Anticipate discharge to home in 2-3 days. (Deep Sauceda MD R3) Problem List: (1) Sepsis Status: Acute Plan: On admission, patient met septic shock criteria given lactic acid 5, hypotension and renal failure. Hypotension and tachycardia resolved in ER after receiving 2 L bolus. Lactic acid trended down to 2.9 -> 2.1. Repeat is pending this AM. -Holding Metolazone, Bumex --> will use care with fluids (decrease to 85 ml/hr) -plan as below (2) COPD (chronic obstructive pulmonary disease) Status: Acute Plan: Patient with hx of COPD, admitted with COPD exacerbation, likely due to respiratory infection in clinical setting of sepsis. Leukocytosis to 11k. Blood gas on admission: O2 saturation 90, pH 7.5, PCO2 42. ACS r/o reassuring. Patient is on 2-3 L NC at home. -Pulmonology following, thank you for rec's - Plan for PFT's -Continue Cefepime 2 g IV q24 - renal dose -Continue Azithromycin -Symbicort -Tessalon Pearles prn -Solumedrol 60 mg IV q6h, transition to PO prednisone pending clinical improvement -Singulair -Begin acapella and resp spirometer -Consider transfer to [facility] this afternoon (3) Acute renal failure Status: Acute Plan: Patient with acute on chronic renal failure. GFR on admission 15, down from baseline of 40s. Likely due to decreased perfusion 2/2 sepsis, now resolving. Cr 3.23 on admission -> 1.[address]-guided needle biopsy of right kidney on 08/01/15. 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 Interstitial fibrosis and tubular atrophy, severe. Arteriosclerosis, severe. -Continue gentle IVF -Consult nephrology (4) Diabetes mellitus Status: Chronic Plan: Home medications: Levemir 20 units BID, Novolog 10 units TIDAC. Hemoglobin A1c 9.5 from 05/02/16. Serum glucose 44 on presentation to emergency department, therefore insulin was held. Since that time, glucose has been labile in the 300-400 range. -Levemir 20 units BID -Begin NovoLog 10 units TIDAC -Low-dose sliding scale -Continue to monitor blood glucose closely, will consider increasing Levemir and meal coverage (5) Anemia Status: Chronic Plan: Patient with chronic anemia, likely related to chronic kidney disease. Baseline hemoglobin 11. 10.4 on admission, now 9.5 today. Likely dilutional. Will continue to monitor. (6) FEN/PPX Status: Acute Plan: NS at 84 mls/hr Nutrition: 2200 ADA DVT PPX: Heparin GI PPX: Protonix Electrolytes: Mg 1.5 - Ca 7.0 on admission, now s/p 1 g Ca gluconate with level of 7.7. (Deep Sauceda MD R3) Problem Qualifiers (1) Sepsis: Qualified Code: A41.9 - Sepsis, due to unspecified organism (2) Diabetes mellitus: Qualified Code: E11.9 - Type 2 diabetes mellitus without complication, with long-term current use of insulin Deep Sauceda MD R3 August 25, 2016 08:35 Chely Pitts MD August 26, 2016 09:48
[2016-08-25] MEDS: HYDROXYCHLOROQUINE SULFATE 200 MG TAB PO SCH ×2 (08:45→21:20)
[2016-08-25] MEDS: GABAPENTIN 400 MG CAP PO SCH ×2 (08:45→21:20)
[2016-08-25] MEDS: PANTOPRAZOLE SOD 40 MG DELAYED RELEASE TAB PO SCH (08:45)
[2016-08-25] MEDS: DOCUSATE SODIUM 50 MG/SENNA 8.6 MG TAB PO SCH ×2 (08:45→21:00)
[2016-08-25] MEDS: INSULIN DETEMIR 100 UNITS/ML VIAL SQ SCH ×2 (08:46→21:00)
[2016-08-25] MEDS: BUDESONIDE-FORMOTEROL 160/4.5 MCG INHALER INH SCH ×2 (10:30→21:20)
--- NOTE | 2016-08-25 10:59 | HHI.NPPN ---
Subjective History of Present Illness This patient is a 50-year-old [place]ro[place]izen [place] female with a history of significant intrinsic pulmonary disease etiology uncertain. Patient also has a history of CKD stage III. Question of a history of lupus also. Renal biopsy was performed August 01, 2015 which revealed diabetic kidney disease but no evidence of autoimmune process. There is also evidence of severe interstitial fibrosis and tubular atrophy both poor prognostic indicators as far as preservation of renal function is concerned for the future. This was discussed with the patient previously. Biopsy or sure showed severe arteriosclerosis. Patient was seen in the office several days ago and appeared to be clinically stable at that time with a significant improvement in her fluid retention. Patient indicated however the following Saturday she felt that she was developing a respiratory tract infection. Subsequently became very dyspneic. She has been producing some yellow phlegm but no hemoptysis. Subsequently there was a fall in her oxygenation and on presentation to the emergency room was noted to have a blood pressure of 89 of 51. Lactic acid level was elevated to 5.5 and a creatinine had risen from a previous baseline of approximately 1.6 to a level of 3.23. Creatinine level improved to a level of 2.63 day of consultation. Interval History Patient indicated that she was feeling significantly better with less shortness of breath. Blood pressure also improved. Review of Systems Respiratory Lungs: SOB Cardiovascular Cardiac: Edema Objective Data Data 08/24/16 08/25/16 19:00 07:00 Intake Total 1218 ml 1924 ml Output Total 1642 ml 2 ml Balance -424 ml 1922 ml Intake Oral 800 ml 840 ml IV Total 418 ml 1084 ml Output Urine Total 1640 ml Stool Total 2 ml 2 ml # Voids 4 Vital Signs Date Time Temp Pulse Resp B/P Pulse Ox O2 Delivery O2 Flow Rate FiO2 08/25/16 10:46 88 08/25/16 08:01 95 Nasal Cannula 4.00 08/25/16 08:00 86 08/25/16 08:00 97.9 81 20 161/76 100 08/25/16 06:00 79 08/25/16 05:54 19 08/25/16 05:00 79 19 147/70 100 08/25/16 04:30 82 21 146/68 100 08/25/16 04:28 100 40 08/25/16 04:00 97.9 82 16 153/83 100 08/25/16 04:00 82 08/25/16 03:30 82 26 143/79 93 08/25/16 03:00 78 19 145/74 100 08/25/16 02:30 84 20 121/74 99 08/25/16 02:00 79 08/25/16 02:00 79 17 153/78 100 08/25/16 01:33 99 40 08/25/16 01:00 82 22 99 08/25/16 00:30 86 08/25/16 00:30 86 27 152/74 99 08/25/16 00:00 98.4 85 26 157/78 99 08/25/16 00:00 85 08/24/16 23:30 80 08/24/16 23:30 80 27 152/80 94 08/24/16 23:02 80 08/24/16 23:02 80 5 156/79 95 08/24/16 23:00 94 08/24/16 23:00 94 08/24/16 22:30 81 08/24/16 22:30 81 25 141/70 98 08/24/16 22:24 97 40 08/24/16 22:00 83 24 135/70 98 08/24/16 22:00 83 08/24/16 21:00 86 08/24/16 21:00 86 22 91 08/24/16 20:08 95 Nasal Cannula 4.00 08/24/16 20:00 98.5 79 19 92 08/24/16 20:00 79 08/24/16 19:00 82 28 90 08/24/16 18:10 82 16 150/73 92 08/24/16 18:00 82 17 92 08/24/16 18:00 82 08/24/16 17:00 83 27 91 08/24/16 16:00 99.1 97 26 117/64 94 08/24/16 16:00 97 08/24/16 14:00 80 08/24/16 12:00 82 08/24/16 12:00 98.0 82 24 158/81 94 -: 08/25/16 0622 08/25/16 0622 Medication Review Current Medications Sodium Chloride (NS Flush) 2 ml UNSCH PRN IVF FLUSH AFTER USING IV ACCESS; Start 08/23/16 at 16:00; Stop 08/23/16 at 19:47; Status DC Methylprednisolone Sodium Succinate (SoluMEDROL INJ) 125 mg ONCE ONCE IVP Last administered on 08/23/16 15:57; Start 08/23/16 at 16:00; Stop 08/23/16 at 16:01; Status DC Albuterol/ Ipratropium (Duoneb Neb) 1 ampule Q15M INH Last administered on 08/23 16:33; Start 08/23/16 at 16:00; Stop 08/23/16 at 16:31; Status DC Dextrose 25 ml 25 ml ONCE ONCE IV PUSH Last administered on 08/23/16 16:40; Start 08/23/16 at 16:45; Stop 08/23/16 at 16:46; Status DC Sodium Chloride 1,000 ml @ 1,000 mls/hr Q1H ONCE IV Last administered on 17:08; Start 08/23/16 at 16:44; Stop 08/23/16 at 17:43; Status DC Sodium Chloride 1,000 ml @ 1,000 mls/hr Q1H ONCE IV Last administered on 17:09; Start 08/23/16 at 16:44; Stop 08/23/16 at 17:43; Status DC Cefepime HCl 2000 mg/Sodium Chloride 100 ml @ 200 mls/hr ONCE STAT IV Last administered on 08/23/16 19:10; Start 08/23/16 at 16:44; Stop 08/23/16 at 17:13 ; Status DC Azithromycin/ Sodium Chloride (Zithromax Inj/ NS 250 ml Inj) 250 ml @ 250 mls/ hr ONCE STAT IV Last administered on 08/23/16 17:08; Start 08/23/16 at 16:44 ; Stop 08/23/16 at 17:43; Status DC Albuterol Sulfate (Albuterol Concentrated Neb) 2.5 mg Q4HR NEB PRN NEB SHORTNESS OF BREATH; Start 08/23/16 at 19:45 Benzonatate (Tessalon) 200 mg TID PRN PO cough Last administered on 08/25/16 04:43; Start 08/23/16 at 19:45 Budesonide/ Formoterol Fumarate (Symbicort 160-4.5 Inh) 2 puff Q12HR INH Last administered on 08/25/16 10:30; Start 08/23/16 at 21:00 Gabapentin (Neurontin) 800 mg BID PO Last administered on 08/25/16 08:45; Start 08/23/16 at 21:00 Hydroxychloroquine Sulfate (Plaquenil) 200 mg Q12HR PO Last administered on 08:45; Start 08/23/16 at 21:00 Insulin Detemir (Levemir Inj) 40 units BID SQ ; Start 08/23/16 at 21:00; Stop at 21:00; Status DC Metolazone (Zaroxolyn) 5 mg TID PO ; Start 08/24/16 at 09:00; Stop 08/24/16 at 09:00; Status DC Montelukast Sodium (Singulair) 10 mg HS PO Last administered on 08/24/16 22:04 ; Start 08/23/16 at 21:00 Pantoprazole Sodium 40 mg 40 mg DAILY PO Last administered on 08/25/16 08:45; Start 08/24/16 at 09:00 Sodium Chloride (NS 1000 ml Inj) 1,000 ml @ 125 mls/hr Q8H IV Last administered on 08/24/16 08:14; Start 08/23/16 at 19:33; Stop 08/24/16 at 09:50 ; Status DC Sodium Chloride (NS Flush) 2 ml UNSCH PRN IV FLUSH FLUSH AFTER USING IV ACCESS ; Start 08/23/16 at 19:45 Sodium Chloride (NS Flush) 2 ml BID IV FLUSH Last administered on 08/24/16 21: 47; Start 08/23/16 at 21:00 Acetaminophen (Tylenol) 650 mg Q4H PRN PO Headache or TEMP > 100.4 Last administered on 08/25/16 04:44; Start 08/23/16 at 19:45 Zolpidem Tartrate (Ambien) 5 mg HS PRN PO INSOMNIA; Start 08/23/16 at 19:45 Naloxone HCl (Narcan Inj) 0.4 mg UNSCH PRN IV SEE LABEL COMMENTS; Start at 19:45 Senna/Docusate Sodium (Galina-Colace) 1 tab BID PO Last administered on 08:45; Start 08/23/16 at 21:00 Magnesium Hydroxide (Milk Of Magnesia Liq) 30 ml Q12H PRN PO MILD - MODERATE CONSTIPATION; Start 08/23/16 at 19:45 Sennosides (Senokot) 17.2 mg Q12H PRN PO MODERATE - SEVERE CONSTIPATION; Start 08/23/16 at 19:45 Bisacodyl (Dulcolax Supp) 10 mg DAILY PRN RECTAL SEVERE CONSITIPATION; Start at 19:45 Lactulose (Lactulose Liq) 30 ml DAILY PRN PO SEVERE CONSITIPATION; Start at 19:45 Albuterol/ Ipratropium (Duoneb Neb) 1 ampule Q4HR NEB NEB Last administered on 08/25/16 08:01; Start 08/23/16 at 20:00 Methylprednisolone Sodium Succinate (SoluMEDROL INJ) 60 mg Q6H IVP Last administered on 08/25/16 07:25; Start 08/23/16 at 20:00 Azithromycin (Zithromax) 500 mg Q24H PO Last administered on 08/24/16 16:59; Start 08/24/16 at 16:00; Stop 08/27/16 at 15:59 Heparin Sodium (Porcine) (Heparin Inj) 5,000 units Q8HR SQ Last administered on 08/25/16 04:43; Start 08/23/16 at 22:00 Dextrose (D50w (Vial) Inj) 50 ml UNSCH PRN IV HYPOGLYCEMIA-SEE COMMENTS; Start 08/23/16 at 19:45 Glucagon (Glucagon Inj) 1 mg UNSCH PRN OTHER HYPOGLYCEMIA-SEE COMMENTS; Start 08/23/16 at 19:45 Insulin Aspart (NovoLOG SUPPLEMENTAL SCALE) 1 ACHS SLIDING SCALE SQ Last administered on 08/24/16 07:00; Start 08/23/16 at 21:00; Stop 08/24/16 at 10:01 ; Status DC Insulin Detemir (Levemir Inj) 20 units BID SQ ; Start 08/23/16 at 21:00; Stop at 21:00; Status DC Magnesium Oxide 400 mg 400 mg ONCE ONCE PO Last administered on 08/23/16 20: 13; Start 08/23/16 at 20:00; Stop 08/23/16 at 20:01; Status DC Cefepime HCl/ Sodium Chloride (Maxipime Inj/NS Inj) 100 ml @ 200 mls/hr Q24H IV Last administered on 08/24/16 17:49; Start 08/24/16 at 19:00 Calcium Gluconate (Calcium Gluconate) 500 mg ONCE ONCE PO Last administered on 08/24/16 01:16; Start 08/24/16 at 00:30; Stop 08/24/16 at 00:31; Status DC Insulin Detemir (Levemir Inj) 10 units Q12HR SQ ; Start 08/24/16 at 09:00; Stop 08/24/16 at 09:00; Status DC Insulin Detemir 20 units 20 units Q12HR SQ Last administered on 08/25/16 08:46 ; Start 08/24/16 at 09:00 Sodium Chloride (NS 1000 ml Inj) 1,000 ml @ 84 mls/hr [id number] IV Last administered on 08/24/16 10:00; Start 08/24/16 at 10:00 Insulin Aspart 1 1 ACHS SLIDING SCALE SQ Last administered on 08/25/16 07:23 ; Start 08/24/16 at 11:00; Stop 08/25/16 at 08:32; Status DC Calcium Gluconate/ Sodium Chloride (Calcium Gluconate Inj/NS Inj) 110 ml @ 110 mls/hr ONCE ONCE IV Last administered on 08/24/16 12:52; Start 08/24/16 at 10 :15; Stop 08/24/16 at 11:14; Status DC Hydralazine HCl (Apresoline Inj) 10 mg Q6H PRN IV sbp/dbp > 170/100; Start at 11:00 Calcium Carbonate (Oscal) 500 mg HS PO Last administered on 08/24/16 21:47; Start 08/24/16 at 21:00 Insulin Aspart (NovoLOG INJ) 10 units TIDAC SQ ; Start 08/25/16 at 12:00 Insulin Aspart (NovoLOG SUPPLEMENTAL SCALE) 1 ACHS SLIDING SCALE SQ ; Start at 11:00 Physical Exam General Appearance: Well Developed, No Acute Distress, Comfortable Eyes Eye Exam: Sclera White Neck Neck Exam: Trachea Midline Pulmonary Resp Exam: Breath Sounds Equal, Rhonchi (few.) Cardiology CV Exam: Regular, Normal Sinus Rhythm, Good Perfusion Gastrointestinal/Abdomen GI Exam: Soft, Non-Tender Integumentary Skin Exam: Clear, Warm Extremeties Extremities Exam: Pitting Edema (one plus pitting edema ankles.) Assessment/Plan Discussed Condition With: Patient Problem List: (1) Acute kidney injury superimposed on chronic kidney disease Plan: Patient's creatinine level appears to be at baseline. Blood pressure improved and the patient does have evidence of developing lower extremity edema. She does have a history of severe fluid overload in the past. I will discontinue IV fluids at this time and resume by mouth bumetanide. Follow-up renal profile in a.m. Medications should be adjusted for the patient's estimated GFR if clinically indicated. Avoid agents with significant potential for nephrotoxicity possible including NSAIDs for analgesia, iodine contrast agents. Gadolinium is contraindicated if the GFR is below 30. (2) Acute exacerbation of chronic obstructive pulmonary disease Plan: Results of CT reviewed. Pulmonary on board. Await recommendations. (3) CKD (chronic kidney disease) stage 3, GFR 30-59 ml/min Plan: As mentioned above biopsy proven diabetic nephropathy with superimposed arteriosclerosis severe. Severe interstitial fibrosis and tubular atrophy were present on the biopsy about a year ago which are poor prognostic indicators as far as preservation of renal function is concerned for the future. Patient aware of same. (4) Hypocalcemia Plan: Secondary to secondary hyperparathyroidism renal disease. Vitamin D 25- hydroxy level within normal range. 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 (5) Secondary hyperparathyroidism of renal origin Plan: As above. (6) Essential hypertension Izabel Day MD August 25, 2016 10:59
[2016-08-25] MEDS: POTASSIUM CHLORIDE 10 MEQ CONTROLLED RELEASE TAB PO SCH (11:39)
[2016-08-25] MEDS: BUMETANIDE 1 MG TAB PO SCH (11:41)
[2016-08-25] MEDS: SODIUM CHLORIDE 0.9% FLUSH 10 ML FLUSH IV FLUSH SCH ×2 (11:44→21:20)
[2016-08-25] MEDS: INSULIN ASPART 1,000 UNITS/10 ML VIAL SQ SCH ×2 (12:02→16:18)
--- NOTE | 2016-08-25 16:11 | HHI.PR ---
Subjective Remarks 50 YO AA female with Lupus,YOJANA,COPD On NC , sat 98% No Fever CT chest Bronchiectesis and ILD Objective Vital Signs Vital Signs Date Time Temp Pulse Resp B/P Pulse Ox O2 Delivery O2 Flow Rate FiO2 08/25/16 14:00 88 08/25/16 12:00 86 08/25/16 12:00 98.2 87 24 15/81 99 08/25/16 10:46 88 08/25/16 08:01 95 Nasal Cannula 4.00 08/25/16 08:00 86 08/25/16 08:00 97.9 81 20 161/76 100 08/25/16 06:00 79 08/25/16 05:54 19 08/25/16 05:00 79 19 147/70 100 08/25/16 04:30 82 21 146/68 100 08/25/16 04:28 100 40 08/25/16 04:00 97.9 82 16 153/83 100 08/25/16 04:00 82 08/25/16 03:30 82 26 143/79 93 08/25/16 03:00 78 19 145/74 100 08/25/16 02:30 84 20 121/74 99 08/25/16 02:00 79 08/25/16 02:00 79 17 153/78 100 08/25/16 01:33 99 40 08/25/16 01:00 82 22 99 08/25/16 00:30 86 08/25/16 00:30 86 27 152/74 99 08/25/16 00:00 98.4 85 26 157/78 99 08/25/16 00:00 85 08/24/16 23:30 80 08/24/16 23:30 80 27 152/80 94 08/24/16 23:02 80 08/24/16 23:02 80 5 156/79 95 08/24/16 23:00 94 08/24/16 23:00 94 08/24/16 22:30 81 08/24/16 22:30 81 25 141/70 98 08/24/16 22:24 97 40 08/24/16 22:00 83 24 135/70 98 08/24/16 22:00 83 08/24/16 21:00 86 08/24/16 21:00 86 22 91 08/24/16 20:08 95 Nasal Cannula 4.00 08/24/16 20:00 98.5 79 19 92 08/24/16 20:00 79 08/24/16 19:00 82 28 90 08/24/16 18:10 82 16 150/73 92 08/24/16 18:00 82 17 92 08/24/16 18:00 82 08/24/16 17:00 83 27 91 I/O 08/24/16 08/24/16 08/24/16 08/25/16 08/25/16 08/25/16 07:00 15:00 23:00 07:00 15:00 23:00 Intake Total 1195 ml 1218 ml 870 ml 1054 ml 825 ml Output Total 1642 ml 2 ml 0 ml 1802 ml 800 ml Balance 1195 ml -424 ml 868 ml 1054 ml -977 ml -800 ml Intake Oral 480 ml 800 ml 600 ml 240 ml 600 ml IV Total 715 ml 418 ml 270 ml 814 ml 225 ml Output Urine Total 1640 ml 1800 ml 800 ml Stool Total 2 ml 2 ml 0 ml 2 ml # Voids 2 2 2 5 Result Diagram: 08/25/1662108/25/16621 Objective Remarks GENERAL: WBWN Female, NAD SKIN: Warm and dry. HEAD: Normocephalic. EYES: No scleral icterus. No injection or drainage. NECK: Supple, trachea midline. No JVD or lymphadenopathy. CARDIOVASCULAR: Regular rate and rhythm without murmurs, gallops, or rubs. RESPIRATORY: Breath sounds equal bilaterally. No accessory muscle use. GASTROINTESTINAL: Abdomen soft, non-tender, nondistended. MUSCULOSKELETAL: No cyanosis, or edema. BACK: Nontender without obvious deformity. No CVA tenderness. A/P Assessment and Plan Dysnoea and Hypoxia ILd, ? etiology Lupus COPD YOJANA DM CKD PLAN: IV Solumedrol Aerosol nebs cont Abx Monitor BS check PFT Dez Millan MD August 25, 2016 16:11
[2016-08-25] MEDS: AZITHROMYCIN 250 MG TAB PO SCH (16:15)
[2016-08-25] MEDS: CEFEPIME INJ 2,000 MG in SODIUM CHLORIDE 0.9% INJ 100 ML IV SCH (18:46)
[2016-08-25] MEDS: CALCIUM CARBONATE 1.25 GM (CA 500 MG) TAB PO SCH (21:20)
[2016-08-25] MEDS: MONTELUKAST SODIUM 10 MG TAB PO SCH (21:21)
[2016-08-25] MEDS: ZOLPIDEM TARTRATE 5 MG TAB PO PRN (21:23)
[2016-08-26] VITALS (23 sets, daily range): BP systolic 129–190; BP diastolic 60–93; PULSE 74–105; RESP 17–25; TEMP 97.4–99; O2SAT 92–100
[2016-08-26] MEDS: RESP: ALBUTEROL 2.5 MG/IPRATROPIUM 0.5 MG NEB (SCH) NEB ×7 (00:22→23:42)
[2016-08-26] MEDS: methylPREDNISolone SOD SUCC 125 MG/2 ML VIAL IVP SCH (00:42)
[2016-08-26] MEDS: ACETAMINOPHEN/CODEINE 300 MG/30 MG TAB PO PRN ×3 (00:43→14:21)
[2016-08-26] MEDS: BENZONATATE 100 MG CAP PO PRN (06:22)
[2016-08-26] MEDS: HEPARIN SODIUM - SQ 10,000 UNITS/ML VIAL SQ SCH ×3 (06:22→21:24)
[2016-08-26] MEDS: INSULIN ASPART SUPPLEMENTAL SCALE SQ SCH ×4 (06:23→21:28)
[2016-08-26] MEDS: INSULIN ASPART 1,000 UNITS/10 ML VIAL SQ SCH ×3 (08:00→17:18)
--- NOTE | 2016-08-26 08:38 | HHI.FPPN ---
Subjective Remarks Patient resting in bed. No distress. Currently on 2L nasal cannula. No respiratory distress. Has continued coughing that is improving. Breathing is improved by 50% by her report. She has decreased wheezing. She reports continued episodes of desaturation when she walks. Reports no sputum production with coughing. Has some soft stools while on antibiotics. Had 3 bowel movements yesterday. Reports good appetite. No chest pain. Has mild crampy abdominal pain. No calf tenderness. (Hugo Morin MD R2) Objective Vitals Vital Signs Date Time Temp Pulse Resp B/P Pulse Ox O2 Delivery O2 Flow Rate FiO2 08/26/16 06:00 80 08/26/16 04:00 97.4 78 19 190/89 99 08/26/16 04:00 78 08/26/16 03:54 99 40 08/26/16 02:00 79 08/26/16 00:26 96 40 08/26/16 00:00 82 08/26/16 00:00 99.0 82 25 146/77 97 08/25/16 22:00 87 08/25/16 20:00 98.8 83 27 161/88 95 08/25/16 20:00 96 Nasal Cannula 5.00 08/25/16 20:00 83 08/25/16 18:00 83 08/25/16 16:00 85 08/25/16 16:00 98.0 89 20 162/82 96 08/25/16 14:00 88 08/25/16 12:00 86 08/25/16 12:00 98.2 87 24 152/81 99 08/25/16 10:46 88 I/O 08/25/16 08/25/16 08/25/16 08/26/16 08/26/16 08/26/16 06:59 14:59 22:59 06:59 14:59 22:59 Intake Total 1054 ml 825 ml 360 ml 240 ml Output Total 0 ml 1802 ml 2802 ml 1250 ml Balance 1054 ml -977 ml -2442 ml -1010 ml Intake Oral 240 ml 600 ml 120 ml 240 ml IV Total 814 ml 225 ml 240 ml 0 ml Output Urine Total 1800 ml 2800 ml 1250 ml Stool Total 0 ml 2 ml 2 ml # Voids 2 5 # Bowel Movements 0 0 (Hugo Morin MD R2) Result Diagram: 08/25/16 0622 08/25/16 0622 Imaging Last [address] 08/24/16 0000 Signed Impressions: Service Date/Time: Wednesday, August 24, 2016 22:49 - CONCLUSION: No significant infiltrate or mass. Chronic interstitial lung disease with diffuse bronchiectasis. Mediastinal lymphadenopathy clearly smaller than in 2015. Erick Mack MD Chest X-Ray 08/23/16 1548 Signed Impressions: Service Date/Time: July 16:00 - CONCLUSION: Stable chest appearance Edwin Gastelum MD Objective Remarks GENERAL: Resting in bed, no distress, on nasal cannula SKIN: No rashes, ecchymoses or lesions. HEAD: Atraumatic. Normocephalic. EYES: Extraocular motions intact. NECK: Trachea midline. No lymphadenopathy. CARDIOVASCULAR: Regular rate and rhythm without murmurs, gallops, or rubs. Minimal LE edema. RESPIRATORY: Mild end expiratory wheezing, coughs during lung exam. GASTROINTESTINAL: Abdomen soft, non-tender, obese. No guarding. MUSCULOSKELETAL: No calf tenderness. NEUROLOGICAL: Awake and alert. Cranial nerves II through XII intact. Motor and sensory grossly within normal limits. Normal speech. (Hugo Morin MD R2) A/P Assessment and Plan 50 yo F, hx of COPD and lupus, presenting with COPD exacerbation. Discharge Planning Pending clinical improvement and ability to tolerate home 2L NC. Anticipate discharge to home in 2-3 days. (Hugo Morin MD R2) Attending Attestation Patient seen and examined this am. Case reviewed and discussed Agree with plan of care as discussed with me and documented in the resident note. Sitting up at the bedside, glucose uncontrolled Titrate insulin PFTs pending Appreciate pulmonology recs Breathing reportedly improved, but still with tachypnea and desats with exertion (Chely Pitts MD) Problem List: (1) COPD (chronic obstructive pulmonary disease) Status: Acute Plan: Patient with hx of COPD, admitted with COPD exacerbation, likely due to respiratory infection.Blood gas on admission: O2 saturation 90, pH 7.5, PCO2 42. ACS r/o reassuring. Patient is on 2-3 L NC at home. - Pulmonology following, thank you for rec's - Continue Cefepime 2 g IV q24 - renal dosing, started 08/24 - Continue Azithromycin, started 08/24 - Duonebs q4hrs, with albuterol PRN - Solumedrol 60 mg IV q6h, transition to PO prednisone - Continue Symbicort - Singulair 10 mg at night - Acapella and respiratory spirometer - Follow up PFT's (2) Acute renal failure Status: Acute Plan: Patient with acute on chronic renal failure. GFR on admission 15, down from baseline of 40s. Likely due to decreased perfusion secondary to sepsis, now resolving. Cr 3.23 on admission -> 1.55, creatinine pending for today. Patient had CT-guided needle biopsy of right kidney on 08/01/15. Pathology report diagnosed as: Diffuse and nodular diabetic glomerulosclerosis. Global and segmental glomerulosclerosis. Interstitial fibrosis and tubular atrophy, severe. Arteriosclerosis, severe. - Nephrology on board - Avoid nephrotoxic agents - Renally dose medications - Calcitriol for secondary hyperparathyroidism (3) Diabetes mellitus Status: Chronic Plan: Home medications: Levemir 20 units BID, Novolog 10 units TIDAC. Hemoglobin A1c 9.5 from 05/02/16. Serum glucose 44 on presentation to emergency department, therefore insulin was held. Since that time, glucose has been labile in the 300-400 range. Exacerbated by steroid treatments. -Levemir 20 units BID, increase to 22 units bid. Titrate as needed. -NovoLog 10 units TIDAC -Low-dose sliding scale (4) FEN/PPX Status: Acute Plan: PO fluids Nutrition: 2200 ADA DVT PPX: Heparin GI PPX: Protonix (on steroid treatment) Electrolytes: Monitor (Hugo Morin MD R2) Problem Qualifiers (1) Diabetes mellitus: Qualified Code: E11.9 - Type 2 diabetes mellitus without complication, with long-term current use of insulin Hugo Morin MD R2 August 26, 2016 08:38 Chely Pitts MD August 26, 2016 09:51
[2016-08-26] MEDS ORDERED: INSULIN DETEMIR 100 UNITS/ML VIAL SQ SCH (09:00)
[2016-08-26] MEDS: SODIUM CHLORIDE 0.9% FLUSH 10 ML FLUSH IV FLUSH SCH ×2 (09:00→21:25)
[2016-08-26] MEDS: GABAPENTIN 400 MG CAP PO SCH ×2 (09:01→21:24)
[2016-08-26] MEDS: DOCUSATE SODIUM 50 MG/SENNA 8.6 MG TAB PO SCH ×2 (09:01→21:24)
[2016-08-26] MEDS: PANTOPRAZOLE SOD 40 MG DELAYED RELEASE TAB PO SCH (09:01)
[2016-08-26] MEDS: POTASSIUM CHLORIDE 10 MEQ CONTROLLED RELEASE TAB PO SCH (09:01)
[2016-08-26] MEDS: BUMETANIDE 1 MG TAB PO SCH (09:01)
[2016-08-26] MEDS: HYDROXYCHLOROQUINE SULFATE 200 MG TAB PO SCH ×2 (09:01→21:24)
[2016-08-26] MEDS: BUDESONIDE-FORMOTEROL 160/4.5 MCG INHALER INH SCH ×2 (09:02→21:25)
[2016-08-26 09:04] LABS: HEMATOCRIT 32.8 % (35.0-46.0); MEAN CELL VOLUME 83.7 FL (80.0-100.0); MEAN CORPUSCULAR HEMOGLOBIN 27.3 PG (27.0-34.0); MEAN CORPUSCULAR HGB CONC 32.6 % (32.0-36.0); PLATELET COUNT 371 TH/MM3 (150-450); RED BLOOD COUNT 3.92 MIL/MM3 (4.00-5.30); RED CELL DISTRIBUTION WIDTH 17.1 % (11.6-17.2); REVIEW FLAG FINAL
[2016-08-26] MEDS ORDERED: predniSONE 20 MG TAB PO SCH (09:15)
[2016-08-26 09:39] LABS: BICARBONATE 30.3 MEQ/L (21.0-32.0); POTASSIUM 3.4 MEQ/L (3.5-5.1)
[2016-08-26] MEDS: amLODIPine BESYLATE 5 MG TAB PO SCH (12:09)
[2016-08-26] MEDS ORDERED: POTASSIUM CHLORIDE 10 MEQ CONTROLLED RELEASE TAB PO ONE (13:00)
[2016-08-26] MEDS: methylPREDNISolone SOD SUCC 40 MG/1 ML VIAL IV PUSH SCH ×2 (14:21→22:00)
--- NOTE | 2016-08-26 14:40 | HHI.NPPN ---
Subjective History of Present Illness This patient is a 50-year-old Afro-Portuguese female with a history of significant intrinsic pulmonary disease etiology uncertain. Patient also has a history of CKD stage III. Question of a history of lupus also. Renal biopsy was performed August 01, 2015 which revealed diabetic kidney disease but no evidence of autoimmune process. There is also evidence of severe interstitial fibrosis and tubular atrophy both poor prognostic indicators as far as preservation of renal function is concerned for the future. This was discussed with the patient previously. Biopsy or sure showed severe arteriosclerosis. Patient was seen in the office several days ago and appeared to be clinically stable at that time with a significant improvement in her fluid retention. Patient indicated however the following Saturday she felt that she was developing a respiratory tract infection. Subsequently became very dyspneic. She has been producing some yellow phlegm but no hemoptysis. Subsequently there was a fall in her oxygenation and on presentation to the emergency room was noted to have a blood pressure of 89 of 51. Lactic acid level was elevated to 5.5 and a creatinine had risen from a previous baseline of approximately 1.6 to a level of 3.23. Creatinine level improved to a level of 2.63 day of consultation. Interval History Patient has been downgraded from the ICU. No verbal complaints. Indicating shortness of breath is better. Review of Systems Respiratory Lungs: SOB Cardiovascular Cardiac: Edema (trace edema ankles. Pretibial.) Objective Data Data 08/25/16 08/26/16 19:00 07:00 Intake Total 825 ml 600 ml Output Total 3203 ml 2651 ml Balance -2378 ml -2051 ml Intake Oral 600 ml 360 ml IV Total 225 ml 240 ml Output Urine Total 3200 ml 2650 ml Stool Total 3 ml 1 ml # Voids 5 # Bowel Movements 0 Vital Signs Date Time Temp Pulse Resp B/P Pulse Ox O2 Delivery O2 Flow Rate FiO2 08/26/16 14:07 98.1 85 20 138/82 92 08/26/16 12:00 98.3 81 17 134/79 95 08/26/16 12:00 85 08/26/16 10:00 77 08/26/16 08:26 100 Nasal Cannula 4.00 08/26/16 08:00 98.0 79 18 130/60 94 08/26/16 08:00 77 08/26/16 06:00 80 08/26/16 04:00 97.4 78 19 190/89 99 08/26/16 04:00 78 08/26/16 03:54 99 40 08/26/16 02:00 79 08/26/16 00:26 96 40 08/26/16 00:00 82 08/26/16 00:00 99.0 82 25 146/77 97 08/25/16 22:00 87 08/25/16 20:00 98.8 83 27 161/88 95 08/25/16 20:00 96 Nasal Cannula 5.00 08/25/16 20:00 83 08/25/16 18:00 83 08/25/16 16:00 85 08/25/16 16:00 98.0 89 20 162/82 96 -: 08/26/16 0752 08/26/16 0752 Physical Exam General Appearance: Well Developed, No Acute Distress, Comfortable Eyes Eye Exam: Sclera White Neck Neck Exam: Trachea Midline Pulmonary Resp Exam: Clear Bilaterally, Breath Sounds Equal Cardiology CV Exam: Regular, Normal Sinus Rhythm, Good Perfusion Gastrointestinal/Abdomen GI Exam: Soft, Non-Tender Integumentary Skin Exam: Clear, Warm Extremeties Extremities Exam: Pitting Edema (one plus pitting edema ankles.) Assessment/Plan Discussed Condition With: Patient Problem List: (1) Acute kidney injury superimposed on chronic kidney disease Plan: Patient's creatinine level appears to be at baseline. Urine output has improved as well as the edema. Patient currently on a lower dose of bumetanide than as an outpatient but in view of good response I will continue current dosage with monitoring of volume status. Increase potassium chloride supplementation. Medications should be adjusted for the patient's estimated GFR if clinically indicated. Avoid agents with significant potential for nephrotoxicity possible including NSAIDs for analgesia, iodine contrast agents. Gadolinium is contraindicated if the GFR is below 30. (2) Acute exacerbation of chronic obstructive pulmonary disease Plan: Results of CT reviewed. Pulmonary on board. Await recommendations. (3) CKD (chronic kidney disease) stage 3, GFR 30-59 ml/min Plan: As mentioned above biopsy proven diabetic nephropathy with superimposed arteriosclerosis severe. Severe interstitial fibrosis and tubular atrophy were present on the biopsy about a year ago which are poor prognostic indicators as far as preservation of renal function is concerned for the future. Patient aware of same. (4) Hypocalcemia Plan: Secondary to secondary hyperparathyroidism renal disease. Vitamin D 25- hydroxy level within normal range. 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 (5) Secondary hyperparathyroidism of renal origin Plan: As above. (6) Essential hypertension Izabel Day MD August 26, 2016 14:40
[2016-08-26] MEDS: AZITHROMYCIN 250 MG TAB PO SCH (17:16)
[2016-08-26] MEDS: CEFEPIME INJ 2,000 MG in SODIUM CHLORIDE 0.9% INJ 100 ML IV SCH (18:56)
--- NOTE | 2016-08-26 19:56 | HHI.PR ---
Subjective Remarks 50 YO AA female with Lupus,YOJANA,COPD On NC , sat 98% No Fever CT chest Bronchiectesis and ILD Weaned to 3 LNC Feels better Objective Vital Signs Vital Signs Date Time Temp Pulse Resp B/P Pulse Ox O2 Delivery O2 Flow Rate FiO2 08/26/16 18:31 84 08/26/16 17:00 80 08/26/16 16:00 80 08/26/16 15:36 95 Nasal Cannula 3.00 08/26/16 15:34 98.1 75 20 159/93 97 08/26/16 15:20 94 Nasal Cannula 4.00 Humidified 08/26/16 15:00 74 08/26/16 14:07 98.1 85 20 138/82 92 08/26/16 14:00 82 08/26/16 12:00 98.3 81 17 134/79 95 08/26/16 12:00 85 08/26/16 10:00 77 08/26/16 08:26 100 Nasal Cannula 4.00 08/26/16 08:00 98.0 79 18 130/60 94 08/26/16 08:00 77 08/26/16 06:00 80 08/26/16 04:00 97.4 78 19 190/89 99 08/26/16 04:00 78 08/26/16 03:54 99 40 08/26/16 02:00 79 08/26/16 00:26 96 40 08/26/16 00:00 82 08/26/16 00:00 99.0 82 25 146/77 97 08/25/16 22:00 87 08/25/16 20:00 98.8 83 27 161/88 95 08/25/16 20:00 96 Nasal Cannula 5.00 08/25/16 20:00 83 I/O 08/25/16 08/25/16 08/25/16 08/26/16 08/26/16 08/26/16 07:00 15:00 23:00 07:00 15:00 23:00 Intake Total 1054 ml 825 ml 360 ml 240 ml Output Total 0 ml 1802 ml 2802 ml 1250 ml Balance 1054 ml -977 ml -2442 ml -1010 ml Intake Oral 240 ml 600 ml 120 ml 240 ml IV Total 814 ml 225 ml 240 ml 0 ml Output Urine Total 1800 ml 2800 ml 1250 ml Stool Total 0 ml 2 ml 2 ml # Voids 2 5 1 # Bowel Movements 0 0 Result Diagram: 08/26/16 0752 08/26/16 0752 Objective Remarks GENERAL: WBWN Female, NAD SKIN: Warm and dry. HEAD: Normocephalic. EYES: No scleral icterus. No injection or drainage. NECK: Supple, trachea midline. No JVD or lymphadenopathy. CARDIOVASCULAR: Regular rate and rhythm without murmurs, gallops, or rubs. RESPIRATORY: Breath sounds equal bilaterally. No accessory muscle use. GASTROINTESTINAL: Abdomen soft, non-tender, nondistended. MUSCULOSKELETAL: No cyanosis, or edema. BACK: Nontender without obvious deformity. No CVA tenderness. A/P Assessment and Plan Dysnoea and Hypoxia ILd, ? etiology Lupus COPD YOJANA DM CKD PLAN: IV Solumedrol Aerosol nebs cont Abx Monitor BS check PFT Will DW With CTS for Bx Dez Millan MD August 26, 2016 19:56
[2016-08-26] MEDS: MONTELUKAST SODIUM 10 MG TAB PO SCH (21:24)
[2016-08-26] MEDS: CALCIUM CARBONATE 1.25 GM (CA 500 MG) TAB PO SCH (21:24)
[2016-08-26] MEDS: INSULIN DETEMIR 100 UNITS/ML VIAL SQ SCH (21:27)
[2016-08-27] VITALS (31 sets, daily range): BP systolic 118–147; BP diastolic 72–81; PULSE 69–88; RESP 18–20; TEMP 97.4–98.4; O2SAT 94–100
[2016-08-27] MEDS ORDERED: INSULIN ASPART 1,000 UNITS/10 ML VIAL SQ SCH
[2016-08-27] MEDS: RESP: ALBUTEROL 2.5 MG/IPRATROPIUM 0.5 MG NEB (SCH) NEB ×4 (03:30→16:00)
[2016-08-27] MEDS: ACETAMINOPHEN/CODEINE 300 MG/30 MG TAB PO PRN ×2 (05:17→22:37)
[2016-08-27] MEDS: methylPREDNISolone SOD SUCC 40 MG/1 ML VIAL IV PUSH SCH ×3 (05:17→22:38)
[2016-08-27] MEDS: HEPARIN SODIUM - SQ 10,000 UNITS/ML VIAL SQ SCH ×3 (05:17→22:39)
[2016-08-27] MEDS: INSULIN ASPART SUPPLEMENTAL SCALE SQ SCH ×4 (05:26→22:32)
[2016-08-27] MEDS: SODIUM CHLORIDE 0.9% FLUSH 10 ML FLUSH IV FLUSH SCH ×2 (08:33→22:39)
[2016-08-27] MEDS: BUDESONIDE-FORMOTEROL 160/4.5 MCG INHALER INH SCH ×2 (08:33→22:38)
[2016-08-27] MEDS: GABAPENTIN 400 MG CAP PO SCH ×2 (08:34→22:38)
[2016-08-27] MEDS: BUMETANIDE 1 MG TAB PO SCH (08:34)
[2016-08-27] MEDS: DOCUSATE SODIUM 50 MG/SENNA 8.6 MG TAB PO SCH ×2 (08:34→22:38)
[2016-08-27] MEDS: HYDROXYCHLOROQUINE SULFATE 200 MG TAB PO SCH ×2 (08:34→22:38)
[2016-08-27] MEDS: amLODIPine BESYLATE 5 MG TAB PO SCH (08:34)
[2016-08-27] MEDS: POTASSIUM CHLORIDE 10 MEQ CONTROLLED RELEASE TAB PO SCH (08:34)
[2016-08-27] MEDS: PANTOPRAZOLE SOD 40 MG DELAYED RELEASE TAB PO SCH (08:34)
[2016-08-27] MEDS: INSULIN DETEMIR 100 UNITS/ML VIAL SQ SCH ×2 (08:39→22:32)
[2016-08-27] MEDS: INSULIN ASPART 1,000 UNITS/10 ML VIAL SQ SCH ×3 (08:40→17:00)
[2016-08-27 08:59] LABS: BICARBONATE 32.6 MEQ/L (21.0-32.0); POTASSIUM 3.5 MEQ/L (3.5-5.1)
--- NOTE | 2016-08-27 09:31 | HHI.NPPN ---
Subjective History of Present Illness This patient is a 50-year-old Afro-[place] female with a history of significant intrinsic pulmonary disease etiology uncertain. Patient also has a history of CKD stage III. Question of a history of lupus also. Renal biopsy was performed August 01, 2015 which revealed diabetic kidney disease but no evidence of autoimmune process. There is also evidence of severe interstitial fibrosis and tubular atrophy both poor prognostic indicators as far as preservation of renal function is concerned for the future. This was discussed with the patient previously. Biopsy or sure showed severe arteriosclerosis. Patient was seen in the office several days ago and appeared to be clinically stable at that time with a significant improvement in her fluid retention. Patient indicated however the following Saturday she felt that she was developing a respiratory tract infection. Subsequently became very dyspneic. She has been producing some yellow phlegm but no hemoptysis. Subsequently there was a fall in her oxygenation and on presentation to the emergency room was noted to have a blood pressure of 89 of 51. Lactic acid level was elevated to 5.5 and a creatinine had risen from a previous baseline of approximately 1.6 to a level of 3.23. Creatinine level improved to a level of 2.63 day of consultation. Interval History States she is feeling better today. Breathing improved. c/o tremulous activity---s/p EEG yesterday Review of Systems Respiratory Lungs: SOB Objective Data Data 08/26/16 08/27/16 19:00 07:00 Intake Total 360 ml Output Total 1300 ml Balance -940 ml Intake Oral 360 ml Output Urine Total 1300 ml # Voids 1 Vital Signs Date Time Temp Pulse Resp B/P Pulse Ox O2 Delivery O2 Flow Rate FiO2 08/27/16 08:47 98 Nasal Cannula 3.50 08/27/16 06:00 73 08/27/16 05:00 79 08/27/16 04:00 75 08/27/16 04:00 98.0 82 18 118/77 97 08/27/16 03:41 95 40 08/27/16 03:00 73 08/27/16 02:00 79 08/27/16 01:00 78 08/27/16 00:11 95 40 08/27/16 00:00 81 08/27/16 00:00 Bi-Pap 08/27/16 00:00 98.1 80 18 132/81 96 08/26/16 23:00 78 08/26/16 22:00 80 08/26/16 21:00 82 08/26/16 20:10 Nasal Cannula 4.00 Humidified 08/26/16 20:00 98.0 75 18 129/75 96 08/26/16 20:00 105 08/26/16 19:00 76 08/26/16 18:31 84 08/26/16 17:00 80 08/26/16 16:00 80 08/26/16 15:36 95 Nasal Cannula 3.00 08/26/16 15:34 98.1 75 20 159/93 97 08/26/16 15:20 94 Nasal Cannula 4.00 Humidified 08/26/16 15:00 74 08/26/16 14:07 98.1 85 20 138/82 92 08/26/16 14:00 82 08/26/16 12:00 98.3 81 17 134/79 95 08/26/16 12:00 85 08/26/16 10:00 77 -: 08/26/16 0752 08/27/16 0754 Microbiology 08/26/16 Legionella Antigen, Received Pending 08/26/16 Streptococcus pneumoniae Antigen (M, Received Pending Imaging Last Impressions Chest CT 08/24/16 0000 Signed Impressions: Service Date/Time: Wednesday, August 24, 2016 22:49 - CONCLUSION: No significant infiltrate or mass. Chronic interstitial lung disease with diffuse bronchiectasis. Mediastinal lymphadenopathy clearly smaller than in 2015. Erick Mack MD Chest X-Ray 08/23/16 1548 Signed Impressions: Service Date/Time: July 16:00 - CONCLUSION: Stable chest appearance Edwin Gastelum MD Medication Review Current Medications Medications (Trade) Dose Ordered Sig/Iván Route Start Time Stop Time Status Last Admin (Tessalon) 200 mg TID PRN PO 08/23/16 19:45 08/26/16 06:22 (Symbicort 160-4.5 Inh) 2 puff Q12HR INH 08/23/16 21:00 08/27/16 08:33 (Neurontin) 800 mg BID PO 08/23/16 21:00 08/27/16 08:34 (Plaquenil) 200 mg Q12HR PO 08/23/16 21:00 08/27/16 08:34 (Singulair) 10 mg HS PO 08/23/16 21:00 08/26/16 21:24 (Protonix) 40 mg DAILY PO 08/24/16 09:00 08/27/16 08:34 (NS Flush) 2 ml UNSCH PRN IV FLUSH 08/23/16 19:45 08/26/16 14:21 (NS Flush) 2 ml BID IV FLUSH 08/23/16 21:00 08/27/16 08:33 (Tylenol) 650 mg Q4H PRN PO 08/23/16 19:45 08/25/16 21:23 (Ambien) 5 mg HS PRN PO 08/23/16 19:45 08/25/16 21:23 (Narcan Inj) 0.4 mg UNSCH PRN IV 08/23/16 19:45 (Galina-Colace) 1 tab BID PO 08/23/16 21:00 08/27/16 08:34 (Milk Of Magnesia Liq) 30 ml Q12H PRN PO 08/23/16 19:45 (Senokot) 17.2 mg Q12H PRN PO 08/23/16 19:45 (Dulcolax Supp) 10 mg DAILY PRN RECTAL 08/23/16 19:45 (Lactulose Liq) 30 ml DAILY PRN PO 08/23/16 19:45 (Zithromax) 500 mg Q24H PO 08/24/16 16:00 08/27/16 15:59 08/26/16 17:16 (Heparin Inj) 5,000 units Q8HR SQ 08/23/16 22:00 08/27/16 05:17 (D50w (Vial) Inj) 50 ml UNSCH PRN IV 08/23/16 19:45 Glucagon 1 mg 1 mg UNSCH PRN OTHER 08/23/16 19:45 (Maxipime Inj/NS Inj) 100 ml @ 200 mls/hr Q24H IV 08/24/16 19:00 08/26/16 18:56 (Apresoline Inj) 10 mg Q6H PRN IV 08/24/16 11:00 08/26/16 04:10 (Oscal) 500 mg HS PO 08/24/16 21:00 08/26/16 21:24 (NovoLOG INJ) 10 units TIDAC SQ 08/25/16 12:00 08/27/16 08:40 (Bumetanide) 2 mg DAILY PO 08/25/16 11:00 08/27/16 08:34 (Rocaltrol) 0.25 mcg MoWeFr PO 08/27/16 12:00 (Tylenol-Codeine #3) 1 tab Q6H PRN PO 08/26/16 00:30 08/27/16 05:17 (SoluMEDROL INJ) 40 mg Q8HR IV PUSH 08/26/16 14:00 08/27/16 05:17 (Norvasc) 5 mg DAILY PO 08/26/16 11:00 08/27/16 08:34 (Levemir Inj) 25 units Q12HR SQ 08/26/16 21:00 08/27/16 08:39 (KCl) 20 meq DAILY PO 08/27/16 09:00 08/27/16 08:34 Physical Exam General Appearance: Well Developed, No Acute Distress, Comfortable Eyes Eye Exam: Sclera White Neck Neck Exam: Trachea Midline Pulmonary Resp Exam: Clear Bilaterally, Breath Sounds Equal Cardiology CV Exam: Regular, Normal Sinus Rhythm, Good Perfusion Gastrointestinal/Abdomen GI Exam: Soft, Non-Tender Integumentary Skin Exam: Clear, Warm Extremeties Extremities Exam: Trace Edema (bilat ankles L>R.) Neurologic Neuro Exam: Alert, Awake, Oriented Psychiatric Psych Exam: Appropriate Responses Assessment/Plan Discussed Condition With: Patient Problem List: (1) Acute kidney injury superimposed on chronic kidney disease Plan: Patient's creatinine level appears to be at baseline. Urine output has improved as well as the edema. Continue on Bumex 2mg po QD at the present as appears to be doing well on this dose. Will adjust as needed for edema control Medications should be adjusted for the patient's estimated GFR if clinically indicated. Avoid agents with significant potential for nephrotoxicity possible including NSAIDs for analgesia, iodine contrast agents. Gadolinium is contraindicated if the GFR is below 30. (2) Acute exacerbation of chronic obstructive pulmonary disease Plan: Reviewed pulmo notes. Pending lung bx (3) CKD (chronic kidney disease) stage 3, GFR 30-59 ml/min Plan: As mentioned above biopsy proven diabetic nephropathy with superimposed arteriosclerosis severe. Severe interstitial fibrosis and tubular atrophy were present on the biopsy about a year ago which are poor prognostic indicators as far as preservation of renal function is concerned for the future. Patient aware of same. (4) Hypocalcemia Plan: Secondary to secondary hyperparathyroidism renal disease. Vitamin D 25- hydroxy level within normal range. Continue calcitriol (5) Secondary hyperparathyroidism of renal origin Plan: As above. (6) Essential hypertension Plan: BP stable. Continue on current regimen Lucia Leon August 27, 2016 09:30
--- NOTE | 2016-08-27 11:38 | HHI.FPPN ---
Subjective Remarks Pt seen and examined this morning after using the restroom. She is feeling short of breath, Oxygen saturation in the low 70s, and return to 92 with supplemental oxygen after several minutes. She feels that her breathing has improved from yesterday, but still feels very short of breath with any movement and is taking longer to recover. Lower extremity edema is improving. She denies chest pain, abdominal pain, constipation. She reports that she had an EEG done due to concern for tremors vs seizure activity, she denies any additional tremors or jerking. Objective Vitals Vital Signs Date Time Temp Pulse Resp B/P Pulse Ox O2 Delivery O2 Flow Rate FiO2 08/27/16 11:10 98.4 77 19 127/73 98 08/27/16 10:00 84 08/27/16 09:00 78 08/27/16 08:47 98 Nasal Cannula 3.50 08/27/16 08:00 70 08/27/16 07:20 97.6 71 19 147/76 100 08/27/16 07:20 98 Nasal Cannula 4.00 Humidified 08/27/16 07:00 69 08/27/16 06:00 73 08/27/16 05:00 79 08/27/16 04:00 75 08/27/16 04:00 98.0 82 18 118/77 97 08/27/16 03:41 95 40 08/27/16 03:00 73 08/27/16 02:00 79 08/27/16 01:00 78 08/27/16 00:11 95 40 08/27/16 00:00 81 08/27/16 00:00 Bi-Pap 08/27/16 00:00 98.1 80 18 132/81 96 08/26/16 23:00 78 08/26/16 22:00 80 08/26/16 21:00 82 08/26/16 20:10 Nasal Cannula 4.00 Humidified 08/26/16 20:00 98.0 75 18 129/75 96 08/26/16 20:00 105 08/26/16 19:00 76 08/26/16 18:31 84 08/26/16 17:00 80 08/26/16 16:00 80 08/26/16 15:36 95 Nasal Cannula 3.00 08/26/16 15:34 98.1 75 20 159/93 97 08/26/16 15:20 94 Nasal Cannula 4.00 Humidified 08/26/16 15:00 74 08/26/16 14:07 98.1 85 20 138/82 92 08/26/16 14:00 82 08/26/16 12:00 98.3 81 17 134/79 95 08/26/16 12:00 85 I/O 08/26/16 08/26/16 08/26/16 08/27/16 08/27/16 08/27/16 07:00 15:00 23:00 07:00 15:00 23:00 Intake Total 240 ml 360 ml Output Total 1250 ml 1300 ml Balance -1010 ml -940 ml Intake Oral 240 ml 360 ml IV Total 0 ml Output Urine Total 1250 ml 1300 ml # Voids 1 # Bowel Movements 0 Result Diagram: 08/26/16 0752 08/27/16 0754 Objective Remarks GENERAL: Sitting in a chair, on nasal cannula, able to speak in complete sentences SKIN: No rashes, ecchymoses or lesions. HEAD: Atraumatic. Normocephalic. EYES: Extraocular motions intact. NECK: Trachea midline. No lymphadenopathy. CARDIOVASCULAR: Regular rate and rhythm without murmurs, gallops, or rubs. Minimal LE edema. RESPIRATORY: Crackles in lung bases bilaterally, no wheezing, pt with occasional cough during exam. GASTROINTESTINAL: Abdomen soft, non-tender, obese. No guarding. MUSCULOSKELETAL: No calf tenderness. NEUROLOGICAL: Awake and alert. Cranial nerves II through XII intact. Motor and sensory grossly within normal limits. Normal speech. A/P Assessment and Plan 50 yo F, hx of COPD and lupus, presenting with COPD exacerbation. Discharge Planning Pending clinical improvement and ability to tolerate home 2L NC. Anticipate discharge to home in 2-3 days. Problem List: (1) COPD (chronic obstructive pulmonary disease) Status: Acute Plan: Patient with hx of COPD, admitted with COPD exacerbation, likely due to respiratory infection.Blood gas on admission: O2 saturation 90, pH 7.5, PCO2 42. ACS r/o reassuring. Patient is on 2-3 L NC at home. - Pulmonology following, appreciate recommendations - Cardiothoracic surgery has been consulted for lung biopsy, appreciate recommendations and intervention - Continue Cefepime 2 g IV q24 - renal dosing, started 08/24 - Continue Azithromycin, started 08/24 - Duonebs q4hrs, with albuterol PRN - Solumedrol 40 mg IV q8h, consider decreasing if respiratory status improves - Continue Symbicort - Singulair 10 mg at night - Acapella and respiratory spirometer - Follow up PFT's (2) Acute renal failure Status: Acute Plan: Patient with acute on chronic renal failure. GFR on admission 15, down from baseline of 40s. Likely due to decreased perfusion secondary to sepsis, now resolving. Cr 3.23 on admission -> 1.57. Patient had CT-guided needle biopsy of right kidney on 08/01/15. Pathology report diagnosed as: Diffuse and nodular diabetic glomerulosclerosis. Global and segmental glomerulosclerosis. Interstitial fibrosis and tubular atrophy, severe. Arteriosclerosis, severe. - Nephrology on board - Avoid nephrotoxic agents - Renally dose medications - Calcitriol for secondary hyperparathyroidism (3) Diabetes mellitus Status: Chronic Plan: Home medications: Levemir 30 units BID, Novolog 30 units TIDAC. Hemoglobin A1c 9.5 from 05/02/16. Serum glucose 44 on presentation to emergency department, therefore insulin was held. Since that time, glucose has been labile in the 300-500s range. Exacerbated by steroid treatments. -Patient has required over 45 units of sliding scale insulin over the past 24 hours -Will increase Levemir to 30 units BID -Will increase NovoLog to 15 units TIDAC -Low-dose sliding scale -Continue to adjust above regimen as needed (4) FEN/PPX Status: Acute Plan: PO fluids Nutrition: 2200 ADA DVT PPX: Heparin GI PPX: Protonix (on steroid treatment) Electrolytes: Monitor Problem Qualifiers (1) Diabetes mellitus: Qualified Code: E11.9 - Type 2 diabetes mellitus without complication, with long-term current use of insulin Suzy Clark MD R2 August 27, 2016 11:38
[2016-08-27] MEDS: CALCITRIOL 0.25 MCG CAP PO SCH (12:05)
--- NOTE | 2016-08-27 16:46 | HHI.PR ---
Subjective Remarks 50 YO AA female with Lupus,YOJANA,COPD On NC , sat 98% No Fever CT chest Bronchiectesis and ILD Weaned to 3 LNC Feels better Used CPAP today, helps Objective Vital Signs Vital Signs Date Time Temp Pulse Resp B/P Pulse Ox O2 Delivery O2 Flow Rate FiO2 08/27/16 15:44 97.4 82 20 128/73 94 08/27/16 15:00 81 08/27/16 14:00 88 08/27/16 13:15 83 08/27/16 12:00 78 08/27/16 11:10 98.4 77 19 127/73 98 08/27/16 11:00 82 08/27/16 10:00 84 08/27/16 09:00 78 08/27/16 08:47 98 Nasal Cannula 3.50 08/27/16 08:00 70 08/27/16 07:20 97.6 71 19 147/76 100 08/27/16 07:20 98 Nasal Cannula 4.00 Humidified 08/27/16 07:00 69 08/27/16 06:00 73 08/27/16 05:00 79 08/27/16 04:00 75 08/27/16 04:00 98.0 82 18 118/77 97 08/27/16 03:41 95 40 08/27/16 03:00 73 08/27/16 02:00 79 08/27/16 01:00 78 08/27/16 00:11 95 40 08/27/16 00:00 81 08/27/16 00:00 Bi-Pap 08/27/16 00:00 98.1 80 18 132/81 96 08/26/16 23:00 78 08/26/16 22:00 80 08/26/16 21:00 82 08/26/16 20:10 Nasal Cannula 4.00 Humidified 08/26/16 20:00 98.0 75 18 129/75 96 08/26/16 20:00 105 08/26/16 19:00 76 08/26/16 18:31 84 08/26/16 17:00 80 I/O 08/26/16 08/26/16 08/26/16 08/27/16 08/27/16 08/27/16 06:59 14:59 22:59 06:59 14:59 22:59 Intake Total 240 ml 360 ml Output Total 1250 ml 1300 ml Balance -1010 ml -940 ml Intake Oral 240 ml 360 ml IV Total 0 ml Output Urine Total 1250 ml 1300 ml # Voids 1 # Bowel Movements 0 Result Diagram: 08/26/16 0752 08/27/16 0754 Objective Remarks GENERAL: WBWN Female, NAD SKIN: Warm and dry. HEAD: Normocephalic. EYES: No scleral icterus. No injection or drainage. NECK: Supple, trachea midline. No JVD or lymphadenopathy. CARDIOVASCULAR: Regular rate and rhythm without murmurs, gallops, or rubs. RESPIRATORY: Breath sounds equal bilaterally. No accessory muscle use. GASTROINTESTINAL: Abdomen soft, non-tender, nondistended. MUSCULOSKELETAL: No cyanosis, or edema. BACK: Nontender without obvious deformity. No CVA tenderness. A/P Assessment and Plan Dysnoea and Hypoxia ILd, ? etiology Lupus COPD YOJANA DM CKD PLAN: IV Solumedrol Aerosol nebs cont Abx Monitor BS check PFT Consult CTS for bx/VATS Dez Millan MD August 27, 2016 16:46
[2016-08-27] MEDS: CEFEPIME INJ 2,000 MG in SODIUM CHLORIDE 0.9% INJ 100 ML IV SCH (18:16)
[2016-08-27] MEDS: ZOLPIDEM TARTRATE 5 MG TAB PO PRN (22:36)
[2016-08-27] MEDS: MONTELUKAST SODIUM 10 MG TAB PO SCH (22:37)
[2016-08-27] MEDS: CALCIUM CARBONATE 1.25 GM (CA 500 MG) TAB PO SCH (22:37)
[2016-08-28] VITALS (28 sets, daily range): BP systolic 113–149; BP diastolic 67–81; PULSE 62–102; RESP 16–20; TEMP 97.6–98.3; O2SAT 93–100
[2016-08-28 04:16] LABS: HEMATOCRIT 34.2 % (35.0-46.0); MEAN CELL VOLUME 84.4 FL (80.0-100.0); MEAN CORPUSCULAR HEMOGLOBIN 27.7 PG (27.0-34.0); MEAN CORPUSCULAR HGB CONC 32.8 % (32.0-36.0); PLATELET COUNT 289 TH/MM3 (150-450); RED BLOOD COUNT 4.05 MIL/MM3 (4.00-5.30); RED CELL DISTRIBUTION WIDTH 17.4 % (11.6-17.2); REVIEW FLAG FINAL; WHITE BLOOD COUNT 11.3 TH/MM3 (4.0-11.0)
[2016-08-28 04:37] LABS: ALKALINE PHOSPHATASE 101 U/L (45-117); ALT (GPT) 47 U/L (10-53); ANION GAP 7 MEQ/L (5-15); AST (GOT) 21 U/L (15-37); BICARBONATE 31.8 MEQ/L (21.0-32.0); BLOOD UREA NITROGEN 35 MG/DL (7-18); CHLORIDE 94 MEQ/L (98-107); GLOMERULAR FILTRATION RATE 42 ML/MIN (>89); POTASSIUM 4.4 MEQ/L (3.5-5.1); SODIUM (NA) 133 MEQ/L (136-145); TOTAL BILIRUBIN ADULT 0.2 MG/DL (0.2-1.0)
[2016-08-28] MEDS: INSULIN ASPART SUPPLEMENTAL SCALE SQ SCH ×4 (06:06→21:00)
[2016-08-28] MEDS: HEPARIN SODIUM - SQ 10,000 UNITS/ML VIAL SQ SCH ×2 (06:07→13:32)
[2016-08-28] MEDS: methylPREDNISolone SOD SUCC 40 MG/1 ML VIAL IV PUSH SCH ×3 (06:08→21:24)
[2016-08-28] MEDS: BUDESONIDE-FORMOTEROL 160/4.5 MCG INHALER INH SCH ×2 (07:39→21:24)
[2016-08-28] MEDS: SODIUM CHLORIDE 0.9% FLUSH 10 ML FLUSH IV FLUSH SCH ×2 (07:39→21:00)
[2016-08-28] MEDS: BUMETANIDE 1 MG TAB PO SCH (07:40)
[2016-08-28] MEDS: PANTOPRAZOLE SOD 40 MG DELAYED RELEASE TAB PO SCH (07:40)
[2016-08-28] MEDS: ACETAMINOPHEN/CODEINE 300 MG/30 MG TAB PO PRN ×3 (07:40→23:29)
[2016-08-28] MEDS: DOCUSATE SODIUM 50 MG/SENNA 8.6 MG TAB PO SCH ×2 (07:41→21:23)
[2016-08-28] MEDS: amLODIPine BESYLATE 5 MG TAB PO SCH (07:41)
[2016-08-28] MEDS: GABAPENTIN 400 MG CAP PO SCH ×2 (07:41→21:23)
[2016-08-28] MEDS: POTASSIUM CHLORIDE 10 MEQ CONTROLLED RELEASE TAB PO SCH (07:41)
[2016-08-28] MEDS: HYDROXYCHLOROQUINE SULFATE 200 MG TAB PO SCH ×2 (07:41→21:23)
[2016-08-28] MEDS: INSULIN DETEMIR 100 UNITS/ML VIAL SQ SCH ×2 (07:45→21:00)
[2016-08-28] MEDS: INSULIN ASPART 1,000 UNITS/10 ML VIAL SQ SCH ×3 (07:46→16:20)
--- NOTE | 2016-08-28 08:27 | HHI.FPPN ---
Subjective Remarks No acute events overnight. Vital signs have remained stable on 3 L NC. Patient is being seen by CT surgery this AM for possible lung biopsy. Patient states her breathing has improved from yesterday. She denies fevers or chest pain. States she believes tree pollen caused the exacerbation of her symptoms. (Deep Sauceda MD R3) Objective Vitals Vital Signs Date Time Temp Pulse Resp B/P Pulse Ox O2 Delivery O2 Flow Rate FiO2 08/28/16 07:00 65 08/28/16 07:00 98 Nasal Cannula 3.00 08/28/16 07:00 97.6 69 16 131/81 98 08/28/16 06:00 66 08/28/16 05:00 70 08/28/16 04:00 98.3 62 20 149/80 99 08/28/16 04:00 64 08/28/16 03:59 99 30 08/28/16 03:00 72 08/28/16 02:00 72 08/28/16 01:08 95 30 08/28/16 01:00 71 08/28/16 00:14 94 30 08/28/16 00:00 72 08/27/16 23:00 70 08/27/16 22:00 72 08/27/16 21:09 94 Nasal Cannula 3.00 08/27/16 21:00 78 08/27/16 20:00 78 08/27/16 19:00 98 Nasal Cannula 3.00 08/27/16 19:00 84 08/27/16 19:00 98.3 80 20 123/72 98 08/27/16 18:09 83 08/27/16 17:27 76 08/27/16 16:53 75 08/27/16 15:44 97.4 82 20 128/73 94 08/27/16 15:00 81 08/27/16 14:00 88 08/27/16 13:15 83 08/27/16 12:00 78 08/27/16 11:10 98.4 77 19 127/73 98 08/27/16 11:00 82 08/27/16 10:00 84 08/27/16 09:00 78 08/27/16 08:47 98 Nasal Cannula 3.50 I/O 08/27/16 08/27/16 08/27/16 08/28/16 08/28/16 08/28/16 07:00 15:00 23:00 07:00 15:00 23:00 Intake Total 360 ml 920 ml 240 ml Output Total 1300 ml 1300 ml 1000 ml Balance -940 ml -380 ml -760 ml Intake Oral 360 ml 920 ml 240 ml Output Urine Total 1300 ml 1300 ml 1000 ml # Bowel Movements 0 (Deep Sauceda MD R3) Result Diagram: 08/28/1635108/28/16351 Objective Remarks GENERAL: Sitting at side of bed, on 3L nasal cannula, able to speak in complete sentences SKIN: No rashes, ecchymoses or lesions. EYES: Extraocular motions intact. NECK: Trachea midline. No lymphadenopathy. CARDIOVASCULAR: Regular rate and rhythm without murmurs, gallops, or rubs. trace LE edema to level of horner. RESPIRATORY: Diffuse crackles bilaterally, greater at bases, no wheezing GASTROINTESTINAL: Abdomen soft, non-tender, obese. No guarding. MUSCULOSKELETAL: No calf tenderness. NEUROLOGICAL: Awake and alert. Cranial nerves II through XII intact. Motor and sensory grossly within normal limits. Normal speech. (Deep Sauceda MD R3) A/P Assessment and Plan 50 yo F, hx of pulmonary fibrosis and lupus, presenting with respiratory failure. Discharge Planning Pending clinical improvement and ability to tolerate home 2L NC. Anticipate discharge to home in 2-3 days. (Deep Sauceda MD R3) Attending Attestation Patient seen and examined. Case reviewed and discussed with the resident team. Agree with plan of care as discussed with me and documented in the resident note. Concerned for inflammatory process as she has had multiple bouts of respiratory and renal failure that always get "back to normal" with iv high dose steroids. At home she stopped her po prednisone (tapered to none) 2 weeks prior to coming back to the hospital- again. 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 She had her renal biopsy when her ESR was normal and she was completely asymptomatic for any inflammatory disease. However, over the past months she has had multiple "exacerbations of COPD" and now pulmonary fibrosis. When the ESR was greater than 140 and the URIEL was greater than 1:1280 at the time she has all her other problems, a flare of inflammation can be suspected. Unfortunately, Rheumatologic patients particularly those with lupus do not have stable problems. She has had severe proteinuria in the past of 1800 mg of proteinuria in 24 hours and then persistent with 600 mg in 24 hours on a later test. However, at a later date when she had her renal biopsy she had no proteinuria and normal lab values. One renal biopsy is a snapshot in time. Per pathology, a sample can reflect what is happening right when the biopsy is done and not be reflective of any future problem. However, repeated biopsies are not risk free. Repeatedly, Ms See reports that she feels great with little or no joint pain (which normally lasts almost an hour in the morning), muscle pain, edema, rashes (purple dots on her lower legs), severe hypoxia, dramatic renal failure, "burning skin" on sun exposure, unusual neurologic problems like neuropathies of her hands and feet that last 1-5 minutes and then resolve plus "tremors" and "seizure-like" activity. All of the listed problems and more improved/resolved with high dose steroids on more than one occasion and recur off steroids. She also has not complained of her Raynauds now. Though she still has thinning breaking hair and recent mouth ulcers. Her Instrumentation Engineer was called during her last hospitalization. Will ask for a reevaluation of her condition. Pt states she saw Rheum after hospitalization when she was still on a good dose of po steroids and felt "pretty good". If there is any way to prevent these life threatening presentations of hypoxia, it will be very worthwhile. (Noreen Rodríguez MD) Problem List: (1) Pulmonary fibrosis Status: Acute Plan: Patient with hx of lupus, admitted for respiratory failure. Blood gas on admission: O2 saturation 90, pH 7.5, PCO2 42. ACS r/o reassuring. Patient is on 2-3 L NC at home. CT shows evidence of pulmonary fibrosis. - Pulmonology following, appreciate recommendations - Cardiothoracic surgery has been consulted for lung biopsy, appreciate recommendations and intervention - Continue Cefepime 2 g IV q24 - renal dosing, started 08/24 - Continue Azithromycin, started 08/24 - Duonebs q4hrs, with albuterol PRN - Solumedrol 40 mg IV q8h, consider decreasing if respiratory status improves - Continue Symbicort - Singulair 10 mg at night - Acapella and respiratory spirometer - Follow up PFT's (2) Lupus Status: Acute Plan: Pt on Plaquenil 200mg BID and prednisone 10mg at home. * Continue home Plaquenil * Recommend follow up with Instrumentation Engineer as outpatient (3) Acute renal failure Status: Acute Plan: Patient with acute on chronic renal failure. GFR on admission 15, down from baseline of 40s. Likely due to decreased perfusion secondary to sepsis, now resolving. Cr 3.23 on admission -> 1.57. Patient had CT-guided needle biopsy of right kidney on 08/01/15. Pathology report diagnosed as: Diffuse and nodular diabetic glomerulosclerosis. Global and segmental glomerulosclerosis. Interstitial fibrosis and tubular atrophy, severe. Arteriosclerosis, severe. - Nephrology on board - Avoid nephrotoxic agents - Renally dose medications - Calcitriol for secondary hyperparathyroidism (4) Diabetes mellitus Status: Chronic Plan: Home medications: Levemir 30 units BID, Novolog 30 units TIDAC. Hemoglobin A1c 9.5 from 05/02/16. Serum glucose 44 on presentation to emergency department, therefore insulin was held. Since that time, glucose has been labile in the 300-400s range. Exacerbated by steroid treatments. -Will increase Levemir to home dose of 40 units BID -Continue NovoLog to 15 units TIDAC -Increase to medium-dose sliding scale -Continue to adjust above regimen as needed (5) FEN/PPX Status: Acute Plan: PO fluids Nutrition: 2200 ADA DVT PPX: Heparin GI PPX: Protonix (on steroid treatment) Electrolytes: Monitor (Deep Sauceda MD R3) Problem Qualifiers (1) Diabetes mellitus: Qualified Code: E11.9 - Type 2 diabetes mellitus without complication, with long-term current use of insulin Deep Sauceda MD R3 August 28, 2016 08:27 Noreen Rodríguez MD August 28, 2016 14:03
--- NOTE | 2016-08-28 08:34 | MG ---
cc: PAMELA STAUFFER M.D. Lab No: Date: 08/27/2016 Age: Sex: F Race: ELECTROENCEPHALOGRAM NUMBER [id number] INTRODUCTION Feels like her muscles are twitching and tremoring when she desats with walking. COPD. Asthma. Glomerulonephritis. Lupus. Anemia. Insulin. Plaquenil. Neurontin. DESCRIPTION A diffuse 7 Hz 50 microvolts rhythm is seen. The recording overall is synchronous and symmetrical. Hyperventilation is not performed. The patient falls asleep and snores but does not reach stage II sleep. Photic stimulation was performed without significant posterior driving. IMPRESSION Some mild diffuse theta slowing consistent with a mild diffuse encephalopathy but no focal abnormality was noted. No seizure activity was seen. MD WILFREDO Casey/KK /10:30 AM /8:33 AM
--- NOTE | 2016-08-28 11:28 | MB ---
cc: LESLI ZELAYA DATE OF CONSULTATION 08/28/2016 DATE OF 1965 REASON FOR CONSULTATION This is a 50-year-old white female who presented to the emergency room with increasing shortness of breath. She has a significant history of COPD. She uses O2 at 2-3 liters at home. She noticed that her pulse ox was as low as 70 and she experienced some jerking of her entire body. It felt like her muscles were twitching. She increased her oxygen for 4-1/2 liter and it increased to 90%. It felt like for shortness of breath was worse. She was started on some IV antibiotics. She was started on some IV steroids. She has a history of COPD, lupus, sarcoidosis, diabetes mellitus, chronic home O2. PAST SURGICAL HISTORY Included right ankle surgery. ALLERGIES No known allergies. MEDICATIONS Home meds include: 1. Prednisone 2. Gabapentin 3. Plaquenil 4. DuoNebs 5. Tessalon Perles 6. Symbicort 7. Levemir 8. Singulair 9. Oxygen FAMILY HISTORY Mother had lupus. Father diabetes mellitus, hypertension visually impaired. SOCIAL HISTORY The patient disabled due to chronic medical problems, prior tobacco abuse. Smoked for 25 years, quit 10 years ago. Lives alone. No illicit drugs. No alcohol. REVIEW OF SYSTEMS GENERAL: In general, no night sweats, fever, heat and cold intolerance. SKIN: No psoriasis, itching or hives. HEENT: No blurred vision, hearing loss. RESPIRATORY: Positive for shortness of breath. CARDIOVASCULAR: No chest pain or paroxysmal nocturnal dyspnea. No orthopnea. GASTROINTESTINAL: No diarrhea or vomiting. GENITOURINARY: No burning, frequency, or urgency. CASINO HOST: No history of TIA, CVA, seizure disorder. PHYSICAL EXAM On exam, blood pressure 130/80, heart rate 70, afebrile. Currently she is 98% on three liters. GENERAL: She is alert and oriented in no acute distress. HEAD: Normocephalic, atraumatic. EYES: Pupils equal and reactive. EARS, NOSE, AND THROAT: Oral mucosa pink and moist. NECK: Supple. No JVD. HEART: S1-S2 regular rate and rhythm. No rubs, murmurs, gallops. EXTREMITIES: She has got some trace edema lower extremities. LUNGS: She has got some dry crackles in the bases. No wheezing or rhonchi noted. ABDOMEN: Soft, flat and nontender. No masses or organomegaly. EXTREMITIES: Reveal trace edema. LABORATORY FINDINGS Shows hemoglobin 11, hematocrit 34, white cell count 11, platelet count 289. Sodium 133, potassium 4.4, BUN of 35 with creatinine of 1.57, glucose is 379. INR 1.0. MRSA screen is unremarkable. Micro shows blood cultures negative x3 days, negative for Legionella and Streptococcus pneumoniae antigen. She did undergo CT of the chest which showed some chronic interstitial lung disease with diffuse atelectasis, mediastinal lymphadenopathy which apparently is stable. IMPRESSION This is a 50-year-old female with chronic interstitial lung disease. There was question of sarcoidosis, but we have been asked to evaluate for possible biopsy, video assisted thoracoscopy planning for timing. We will discuss with Dr. Lesli Zelaya in the meantime. She is pending a set of pulmonary function testing. Continue all medications at this time. Further plan per and surgery as per Dr. Zelaya. Dictated by AMANDA Philip MD PATRIZIA Fernández/ELMO /9:32 AM /2:24 PM
[2016-08-28 13:20] LABS: BACTERIA, URINE RARE /hpf; BLOOD, URINE NEG (NEG); COMMENT (UR) CULT NOT INDICATED; CULTURE IF INDICATED CULT NOT INDICATED; GLUCOSE,URINE 1000 mg/dL (NEG); KETONE, URINE NEG (NEG); MUCUS URINE FEW /lpf (OCC); NITRITE,URINE NEG (NEG); SQUAMOUS EPITHELIAL CELL URINE <1 /hpf (0-5); URINE COLOR LIGHT-YELLOW (YELLW/STRAW)
[2016-08-28] MEDS ORDERED: SODIUM CHLORIDE 0.9% FLUSH 10 ML FLUSH IV FLUSH PRN (15:30)
[2016-08-28] MEDS ORDERED: CHLORHEXIDINE GLUCONATE 4% SOLN 120 ML BTL TOPICAL SCH (15:30)
[2016-08-28] MEDS ORDERED: CEFAZOLIN INJ 500 MG in SODIUM CHLORIDE 0.9% IRR BTL 500 ML IRRIGATION SCH (15:30)
--- NOTE | 2016-08-28 17:15 | HHI.FF ---
Face to Face Verification Diagnosis: (1) Pulmonary fibrosis (2) Lupus (3) Acute exacerbation of chronic obstructive pulmonary disease (4) Hypoxia (5) Sepsis Physical Therapy Order: Evaluate and Treat Home Health Nursing Order: Medical education Signs/symptoms of disease process Oxygen administration education I have seen patient Mireya See on 08/28/16. My clinical findings support the need for the requested home health care services because: Ltd mobility - disease progression Patient has SOB Deconditioned w/ increased weakness I certify that my clinical findings support that this patient is homebound because: Hx COPD- exertion dyspnea/weakness Unsteady gait/balance Deep Sauceda MD R3 August 28, 2016 17:15
[2016-08-28] MEDS: CEFEPIME INJ 2,000 MG in SODIUM CHLORIDE 0.9% INJ 100 ML IV SCH (18:29)
--- NOTE | 2016-08-28 18:55 | HHI.PR ---
Subjective Remarks 50 YO AA female with Lupus,YOJANA,COPD No Fever Weaned to 3 LNC Feels better Used CPAP today, helps Cordell CTS Objective Vital Signs Vital Signs Date Time Temp Pulse Resp B/P Pulse Ox O2 Delivery O2 Flow Rate FiO2 08/28/16 18:00 80 08/28/16 17:00 77 08/28/16 16:00 73 08/28/16 15:00 98.0 85 20 117/69 93 08/28/16 15:00 78 08/28/16 14:00 102 08/28/16 13:00 92 08/28/16 12:00 73 08/28/16 11:00 94 08/28/16 11:00 98.0 75 18 113/67 100 08/28/16 10:00 78 08/28/16 09:00 71 08/28/16 08:00 67 08/28/16 07:00 65 08/28/16 07:00 98 Nasal Cannula 3.00 08/28/16 07:00 97.6 69 16 131/81 98 08/28/16 06:00 66 08/28/16 05:00 70 08/28/16 04:00 98.3 62 20 149/80 99 08/28/16 04:00 64 08/28/16 03:59 99 30 08/28/16 03:00 72 08/28/16 02:00 72 08/28/16 01:08 95 30 08/28/16 01:00 71 08/28/16 00:14 94 30 08/28/16 00:00 72 08/27/16 23:00 70 08/27/16 22:00 72 08/27/16 21:09 94 Nasal Cannula 3.00 08/27/16 21:00 78 08/27/16 20:00 78 08/27/16 19:00 98 Nasal Cannula 3.00 08/27/16 19:00 84 08/27/16 19:00 98.3 80 20 123/72 98 I/O 08/27/16 08/27/16 08/27/16 08/28/16 08/28/16 08/28/16 07:00 15:00 23:00 07:00 15:00 23:00 Intake Total 360 ml 920 ml 240 ml 1630 ml Output Total 1300 ml 1300 ml 1000 ml 2250 ml Balance -940 ml -380 ml -760 ml -620 ml Intake Oral 360 ml 920 ml 240 ml 1630 ml Output Urine Total 1300 ml 1300 ml 1000 ml 2250 ml # Bowel Movements 0 Result Diagram: 08/28/1635108/28/16351 Objective Remarks GENERAL: WBWN Female, NAD SKIN: Warm and dry. HEAD: Normocephalic. EYES: No scleral icterus. No injection or drainage. NECK: Supple, trachea midline. No JVD or lymphadenopathy. CARDIOVASCULAR: Regular rate and rhythm without murmurs, gallops, or rubs. RESPIRATORY: Breath sounds equal bilaterally. No accessory muscle use. GASTROINTESTINAL: Abdomen soft, non-tender, nondistended. MUSCULOSKELETAL: No cyanosis, or edema. BACK: Nontender without obvious deformity. No CVA tenderness. A/P Assessment and Plan Dysnoea and Hypoxia ILd, ? etiology Lupus COPD YOJANA DM CKD PLAN: IV Solumedrol Aerosol nebs cont Abx Monitor BS Scheduled for VATS in Dez Millan MD August 28, 2016 18:55
[2016-08-28] MEDS: CALCIUM CARBONATE 1.25 GM (CA 500 MG) TAB PO SCH (21:23)
[2016-08-28] MEDS: MONTELUKAST SODIUM 10 MG TAB PO SCH (21:23)
[2016-08-28] MEDS: ZOLPIDEM TARTRATE 5 MG TAB PO PRN (23:28)
[2016-08-28] MEDS: BENZONATATE 100 MG CAP PO PRN (23:43)
[2016-08-29] VITALS (21 sets, daily range): BP systolic 126–158; BP diastolic 76–87; PULSE 62–112; RESP 14–18; TEMP 97.6–98.1; O2SAT 93–100
[2016-08-29] MEDS: methylPREDNISolone SOD SUCC 40 MG/1 ML VIAL IV PUSH SCH ×3 (06:12→22:37)
[2016-08-29] MEDS: ceFAZolin 2 GM PREMIX 50 ML IV SCH ×2 (06:50→06:52)
[2016-08-29] MEDS ORDERED: ceFAZolin 2 GM PREMIX 50 ML ONE (06:55)
[2016-08-29] MEDS ORDERED: BUPIVACAINE HCL PF 0.5% 30 ML VIAL ONE (06:55)
[2016-08-29] MEDS ORDERED: INSULIN NovoLIN REGULAR SUPPLEMENTAL SCALE ONE (06:57)
[2016-08-29] MEDS: INSULIN ASPART SUPPLEMENTAL SCALE SQ SCH ×4 (07:00→22:40)
[2016-08-29 07:03] LABS: AUTOMATED NEUTROPHIL # 10.8 TH/MM3 (1.8-7.7); BASOPHIL % 0.1 % (0.0-2.0); EOSINOPHIL % 0.1 % (0.0-4.0); HEMATOCRIT 35.6 % (35.0-46.0); HEMO FLAGS DIFF FINAL; LYMPH % 7.5 % (9.0-44.0); LYMPHOCYTE # 0.9 TH/MM3 (1.0-4.8); MEAN CELL VOLUME 85.7 FL (80.0-100.0); MEAN CORPUSCULAR HEMOGLOBIN 26.9 PG (27.0-34.0); MEAN CORPUSCULAR HGB CONC 31.5 % (32.0-36.0); MONO % 4.8 % (0.0-8.0); NEUT % 87.5 % (16.0-70.0); PLATELET COUNT 308 TH/MM3 (150-450); RED BLOOD COUNT 4.15 MIL/MM3 (4.00-5.30); RED CELL DISTRIBUTION WIDTH 17.1 % (11.6-17.2); WHITE BLOOD COUNT 12.3 TH/MM3 (4.0-11.0)
[2016-08-29 07:05] LABS: BICARBONATE 30.2 MEQ/L (21.0-32.0); POTASSIUM 4.6 MEQ/L (3.5-5.1)
[2016-08-29] MEDS ORDERED: SUGAMMADEX SODIUM 200 MG/2 ML VIAL IV PUSH ONE ×2 (07:16)
[2016-08-29] MEDS ORDERED: ACETAMINOPHEN 1000 MG/100 ML VIAL IV ONE (07:16)
[2016-08-29] MEDS ORDERED: RESP: ALBUTEROL 2.5 MG/IPRATROPIUM 0.5 MG NEB (SCH) ONE (07:22)
--- NOTE | 2016-08-29 07:29 | PD.CAR.PN ---
CVT Progress Note Subjective/Hospital Course: Patient preop for thoracoscopic lung biopsy today, but her blood sugar is out of control. Surgery cancelled secondary to hyperglycemia. Objective: Vital Signs Date Time Temp Pulse Resp B/P Pulse Ox O2 Delivery O2 Flow Rate FiO2 08/29/16 05:10 62 08/29/16 04:10 96 30 08/29/16 04:00 62 08/29/16 03:00 98.0 66 18 158/87 100 08/29/16 03:00 100 Bi-Pap 08/29/16 03:00 66 08/29/16 02:00 70 08/29/16 01:11 68 08/29/16 00:38 16 08/29/16 00:37 97 30 08/29/16 00:00 78 08/28/16 23:30 98.0 77 18 120/75 96 08/28/16 23:00 96 Nasal Cannula 2.00 08/28/16 23:00 76 08/28/16 22:00 98 08/28/16 21:00 80 08/28/16 20:00 74 08/28/16 19:00 99 Nasal Cannula 2.00 08/28/16 19:00 98.0 75 18 136/76 99 08/28/16 19:00 78 08/28/16 18:00 80 08/28/16 17:00 77 08/28/16 16:00 73 08/28/16 15:00 98.0 85 20 117/69 93 08/28/16 15:00 78 08/28/16 14:00 102 08/28/16 13:00 92 08/28/16 12:00 73 08/28/16 11:00 94 08/28/16 11:00 98.0 75 18 113/67 100 08/28/16 10:00 78 08/28/16 09:00 71 08/28/16 08:00 67 Labs: Laboratory Tests Test 08/29/16 08/29/16 05:00 05:06 White Blood Count 12.3 TH/MM3 (4.0-11.0) Red Blood Count 4.15 MIL/MM3 (4.00-5.30) Hemoglobin 11.2 GM/DL (11.6-15.3) Hematocrit 35.6 % (35.0-46.0) Mean Corpuscular Volume 85.7 FL (80.0-100.0) Mean Corpuscular Hemoglobin 26.9 PG (27.0-34.0) Mean Corpuscular Hemoglobin 31.5 % Concent (32.0-36.0) Red Cell Distribution Width 17.1 % (11.6-17.2) Platelet Count 308 TH/MM3 (150-450) Mean Platelet Volume 8.1 FL (7.0-11.0) Neutrophils (%) (Auto) 87.5 % (16.0-70.0) Lymphocytes (%) (Auto) 7.5 % (9.0-44.0) Monocytes (%) (Auto) 4.8 % (0.0-8.0) Eosinophils (%) (Auto) 0.1 % (0.0-4.0) Basophils (%) (Auto) 0.1 % (0.0-2.0) Neutrophils # (Auto) 10.8 TH/MM3 (1.8-7.7) Lymphocytes # (Auto) 0.9 TH/MM3 (1.0-4.8) Monocytes # (Auto) 0.6 TH/MM3 (0-0.9) Eosinophils # (Auto) 0.0 TH/MM3 (0-0.4) Basophils # (Auto) 0.0 TH/MM3 (0-0.2) CBC Comment DIFF FINAL Differential Comment Sodium Level 135 MEQ/L (136-145) Potassium Level 4.6 MEQ/L (3.5-5.1) Chloride Level 96 MEQ/L (98-107) Carbon Dioxide Level 30.2 MEQ/L (21.0-32.0) Anion Gap 9 MEQ/L (5-15) Blood Urea Nitrogen 44 MG/DL (7-18) Creatinine 1.64 MG/DL (0.50-1.00) Estimat Glomerular Filtration 40 ML/MIN (>89) Rate Random Glucose 387 MG/DL (74-106) Calcium Level 8.8 MG/DL (8.5-10.1) Result Diagram: 08/29/16 0500 08/29/16 0506 Imaging: Last Impressions Chest CT 08/24/16 0000 Signed Impressions: Service Date/Time: Wednesday, August 24, 2016 22:49 - CONCLUSION: No significant infiltrate or mass. Chronic interstitial lung disease with diffuse bronchiectasis. Mediastinal lymphadenopathy clearly smaller than in 2015. Erick Mack MD Chest X-Ray 08/23/16 1548 Signed Impressions: Service Date/Time: , August 23, 2016 16:00 - CONCLUSION: Stable chest appearance Edwin Gastelum MD Plan: Surgery cancelled secondary to uncontrolled diabetes Recommend aggressive glucose management at which time this biopsy can be rescheduled. Lesli Zelaya MD August 29, 2016 07:29
--- NOTE | 2016-08-29 08:10 | HHI.FPPN ---
Subjective Remarks No acute events overnight. Patient was scheduled for VATS procedure this AM. Unfortunately this has been postponed due to labile blood sugar readings. Patient was initially hypoglycemic upon presentation to the hospital but now has been on IV steroids q4hrs which have been contributing to her elevated blood sugars. Patient is eating and voiding well and denies any confusion, abdominal pain, nausea, vomiting, blurred vision, or calf pain. She states her breathing is again improved today. (Deep Sauceda MD R3) Objective Vitals Vital Signs Date Time Temp Pulse Resp B/P Pulse Ox O2 Delivery O2 Flow Rate FiO2 08/29/16 05:10 62 08/29/16 04:10 96 30 08/29/16 04:00 62 08/29/16 03:00 98.0 66 18 158/87 100 08/29/16 03:00 100 Bi-Pap 08/29/16 03:00 66 08/29/16 02:00 70 08/29/16 01:11 68 08/29/16 00:38 16 08/29/16 00:37 97 30 08/29/16 00:00 78 08/28/16 23:30 98.0 77 18 120/75 96 08/28/16 23:00 96 Nasal Cannula 2.00 08/28/16 23:00 76 08/28/16 22:00 98 08/28/16 21:00 80 08/28/16 20:00 74 08/28/16 19:00 99 Nasal Cannula 2.00 08/28/16 19:00 98.0 75 18 136/76 99 08/28/16 19:00 78 08/28/16 18:00 80 08/28/16 17:00 77 08/28/16 16:00 73 08/28/16 15:00 98.0 85 20 117/69 93 08/28/16 15:00 78 08/28/16 14:00 102 08/28/16 13:00 92 08/28/16 12:00 73 08/28/16 11:00 94 08/28/16 11:00 98.0 75 18 113/67 100 08/28/16 10:00 78 08/28/16 09:00 71 I/O 08/28/16 08/28/16 08/28/16 08/29/16 08/29/16 08/29/16 07:00 15:00 23:00 07:00 15:00 23:00 Intake Total 240 ml 1630 ml 1000 ml Output Total 1000 ml 2250 ml 2600 ml Balance -760 ml -620 ml -1600 ml Intake Oral 240 ml 1630 ml 1000 ml Output Urine Total 1000 ml 2250 ml 2600 ml (Deep Sauceda MD R3) Result Diagram: 08/29/16 0500 08/29/16 0506 Objective Remarks GENERAL: Laying in bed, on 3L nasal cannula, able to speak in complete sentences SKIN: No rashes, ecchymoses or lesions. EYES: Extraocular motions intact. NECK: Trachea midline. No lymphadenopathy. CARDIOVASCULAR: Regular rate and rhythm without murmurs, gallops, or rubs. trace LE edema to level of horner. RESPIRATORY: Diffuse crackles bilaterally, greater at bases, no wheezing GASTROINTESTINAL: Abdomen soft, non-tender, obese. No guarding. MUSCULOSKELETAL: No calf tenderness. NEUROLOGICAL: Awake and alert. Cranial nerves II through XII intact. Motor and sensory grossly within normal limits. Normal speech. (Deep Sauceda MD R3) A/P Assessment and Plan 50 yo F, hx of pulmonary fibrosis and lupus, presenting with respiratory failure. Discharge Planning Pending ability to tolerate home 2L NC, VATS procedure, and stable blood sugars. Anticipate discharge to home in 2-3 days. (Deep Sauceda MD R3) Attending Attestation Patient seen and examined. Case reviewed and discussed with the resident team. Agree with plan of care as discussed with me and documented in the resident note. Called and spoke to Dr Suzie Rodríguez's nurse. He is out of town until mid August. Sent 13 pages of hospital graphs, records over. Ms See repeatedly states that she has worsening of all her problems off steroids and is great when in the hospital taking steroids. She does not feel well even on 10 mg of prednisone so will not wean her as an outpt lower than 20 mg when she leaves the hospital until seen by Dr Larsen and she may need higher dose. His nurse was optimistic about her starting on stronger meds for lupus that can hopefully prevent her coming back to the hospital. She is back to feeling great now with the iv solumedrol. Unable to find the PFT report but the clinic note stated that she had severe restrictive disease and moderate obstructive lung disease about a year and a half ago. She has serious desaturation with exertion and has worsened over time with both her pulmonary and renal fxn. (Noreen Rodríguez MD) Problem List: (1) Pulmonary fibrosis Status: Acute Plan: Patient with hx of lupus, admitted for respiratory failure. Blood gas on admission: O2 saturation 90, pH 7.5, PCO2 42. ACS r/o reassuring. Patient is on 2-3 L NC at home. CT shows evidence of pulmonary fibrosis. - Pulmonology following, appreciate recommendations - Cardiothoracic surgery has been consulted for lung biopsy, appreciate recommendations and intervention --> Anticipate VATS in 1-2 days - Continue Cefepime 2 g IV q24 - renal dosing, started 08/24 - Continue Azithromycin, started 08/24 - Duonebs q4hrs, with albuterol PRN - Solumedrol 40 mg IV q8h, consider decreasing if respiratory status improves - Continue Symbicort - Singulair 10 mg at night - Acapella and respiratory spirometer - Follow up PFT's (2) Lupus Status: Acute Plan: Pt on Plaquenil 200mg BID and prednisone 10mg at home. * Continue home Plaquenil * Recommend follow up with [employer] as outpatient (3) Acute renal failure Status: Acute Plan: Patient with acute on chronic renal failure. GFR on admission 15, down from baseline of 40s. Likely due to decreased perfusion secondary to sepsis, now resolving. Cr 3.23 on admission -> 1.64. Patient had CT-guided needle biopsy of right kidney on 08/01/15. Pathology report diagnosed as: Diffuse and nodular diabetic glomerulosclerosis. Global and segmental glomerulosclerosis. Interstitial fibrosis and tubular atrophy, severe. Arteriosclerosis, severe. - Nephrology on board - Avoid nephrotoxic agents - Renally dose medications - Calcitriol for secondary hyperparathyroidism (4) Diabetes mellitus Status: Chronic Plan: Home medications: Levemir 40 units BID, Novolog 30 units TIDAC. Hemoglobin A1c 9.5 from 05/02/16. Serum glucose 44 on presentation to emergency department, therefore insulin was held. Since that time, glucose has been labile in the 300-500s range. Exacerbated by steroid treatments. Current SS use has been 40 units over past 24 hrs. -Continue Levemir to home dose of 40 units BID -Increase NovoLog to 25 units TIDAC -Continue medium-dose sliding scale -Will continue to monitor very closely and adjust above regimen as needed (5) FEN/PPX Status: Acute Plan: PO fluids Nutrition: 2200 ADA DVT PPX: Heparin GI PPX: Protonix (on steroid treatment) Electrolytes: Monitor (Deep Sauceda MD R3) Problem Qualifiers (1) Diabetes mellitus: Qualified Code: E11.9 - Type 2 diabetes mellitus without complication, with long-term current use of insulin Deep Sauceda MD R3 August 29, 2016 08:10 Noreen Rodríguez MD August 29, 2016 14:17
[2016-08-29] MEDS: HYDROXYCHLOROQUINE SULFATE 200 MG TAB PO SCH ×3 (09:00→21:00)
[2016-08-29] MEDS: SODIUM CHLORIDE 0.9% FLUSH 10 ML FLUSH IV FLUSH SCH ×2 (09:00→20:59)
[2016-08-29] MEDS ORDERED: INSULIN HUMAN REGULAR 1,000 UNITS/10 ML VIAL SQ ONE (09:45)
[2016-08-29] MEDS: BUDESONIDE-FORMOTEROL 160/4.5 MCG INHALER INH SCH ×2 (10:18→21:00)
[2016-08-29] MEDS: POTASSIUM CHLORIDE 10 MEQ CONTROLLED RELEASE TAB PO SCH (10:21)
[2016-08-29] MEDS: BUMETANIDE 1 MG TAB PO SCH (10:21)
[2016-08-29] MEDS: GABAPENTIN 400 MG CAP PO SCH ×2 (10:22→21:01)
[2016-08-29] MEDS: amLODIPine BESYLATE 5 MG TAB PO SCH (10:23)
[2016-08-29] MEDS: PANTOPRAZOLE SOD 40 MG DELAYED RELEASE TAB PO SCH (10:23)
[2016-08-29] MEDS: DOCUSATE SODIUM 50 MG/SENNA 8.6 MG TAB PO SCH ×2 (10:23→21:00)
[2016-08-29] MEDS: INSULIN DETEMIR 100 UNITS/ML VIAL SQ SCH ×2 (10:30→21:06)
[2016-08-29] MEDS: ACETAMINOPHEN/CODEINE 300 MG/30 MG TAB PO PRN ×2 (10:57→22:41)
[2016-08-29] MEDS: INSULIN ASPART 1,000 UNITS/10 ML VIAL SQ SCH ×2 (12:00→16:54)
[2016-08-29] MEDS: CALCITRIOL 0.25 MCG CAP PO SCH (12:00)
[2016-08-29] MEDS: HEPARIN SODIUM - SQ 10,000 UNITS/ML VIAL SQ SCH ×2 (13:31→22:37)
--- NOTE | 2016-08-29 16:37 | HHI.NPPN ---
Subjective History of Present Illness This patient is a 50-year-old Afro-[place] female with a history of significant intrinsic pulmonary disease etiology uncertain. Patient also has a history of CKD stage III. Question of a history of lupus also. Renal biopsy was performed August 01, 2015 which revealed diabetic kidney disease but no evidence of autoimmune process. There is also evidence of severe interstitial fibrosis and tubular atrophy both poor prognostic indicators as far as preservation of renal function is concerned for the future. This was discussed with the patient previously. Biopsy or sure showed severe arteriosclerosis. Patient was seen in the office several days ago and appeared to be clinically stable at that time with a significant improvement in her fluid retention. Patient indicated however the following Saturday she felt that she was developing a respiratory tract infection. Subsequently became very dyspneic. She has been producing some yellow phlegm but no hemoptysis. Subsequently there was a fall in her oxygenation and on presentation to the emergency room was noted to have a blood pressure of 89 of 51. Lactic acid level was elevated to 5.5 and a creatinine had risen from a previous baseline of approximately 1.6 to a level of 3.23. Creatinine level improved to a level of 2.63 day of consultation. Interval History Lung bx was attempted today, but had to be aborted d/t hyperglycemia. Pt denies CP or SOB Edema improving with diuresis Objective Data Data 08/28/16 08/29/16 19:00 07:00 Intake Total 1630 ml 1000 ml Output Total 2250 ml 2600 ml Balance -620 ml -1600 ml Intake Oral 1630 ml 1000 ml Output Urine Total 2250 ml 2600 ml Vital Signs Date Time Temp Pulse Resp B/P Pulse Ox O2 Delivery O2 Flow Rate FiO2 08/29/16 10:32 96 Nasal Cannula 3.00 08/29/16 05:10 62 08/29/16 04:10 96 30 08/29/16 04:00 62 08/29/16 03:00 98.0 66 18 158/87 100 08/29/16 03:00 100 Bi-Pap 08/29/16 03:00 66 08/29/16 02:00 70 08/29/16 01:11 68 08/29/16 00:38 16 08/29/16 00:37 97 30 08/29/16 00:00 78 08/28/16 23:30 98.0 77 18 120/75 96 08/28/16 23:00 96 Nasal Cannula 2.00 08/28/16 23:00 76 08/28/16 22:00 98 08/28/16 21:00 80 08/28/16 20:00 74 08/28/16 19:00 99 Nasal Cannula 2.00 08/28/16 19:00 98.0 75 18 136/76 99 08/28/16 19:00 78 08/28/16 18:00 80 08/28/16 17:00 77 -: 08/29/16 0500 08/29/16 0506 Imaging Last Impressions Chest CT 08/24/16 0000 Signed Impressions: Service Date/Time: Wednesday, August 24, 2016 22:49 - CONCLUSION: No significant infiltrate or mass. Chronic interstitial lung disease with diffuse bronchiectasis. Mediastinal lymphadenopathy clearly smaller than in 2015. Erick Mack MD Chest X-Ray 08/23/16 1548 Signed Impressions: Service Date/Time: July 16:00 - CONCLUSION: Stable chest appearance Edwin Gastelum MD Medication Review Current Medications Medications (Trade) Dose Ordered Sig/Iván Route Start Time Stop Time Status Last Admin (Tessalon) 200 mg TID PRN PO 08/23/16 19:45 08/28/16 23:43 (Symbicort 160-4.5 Inh) 2 puff Q12HR INH 08/23/16 21:00 08/29/16 10:18 (Neurontin) 800 mg BID PO 08/23/16 21:00 08/29/16 10:22 (Plaquenil) 200 mg Q12HR PO 08/23/16 21:00 08/29/16 10:54 (Singulair) 10 mg HS PO 08/23/16 21:00 08/28/16 21:23 (Protonix) 40 mg DAILY PO 08/24/16 09:00 08/29/16 10:23 (Tylenol) 650 mg Q4H PRN PO 08/23/16 19:45 08/25/16 21:23 (Ambien) 5 mg HS PRN PO 08/23/16 19:45 08/28/16 23:28 (Narcan Inj) 0.4 mg UNSCH PRN IV 08/23/16 19:45 (Galina-Colace) 1 tab BID PO 08/23/16 21:00 08/29/16 10:23 (Milk Of Magnesia Liq) 30 ml Q12H PRN PO 08/23/16 19:45 (Senokot) 17.2 mg Q12H PRN PO 08/23/16 19:45 (Dulcolax Supp) 10 mg DAILY PRN RECTAL 08/23/16 19:45 (Lactulose Liq) 30 ml DAILY PRN PO 08/23/16 19:45 (D50w (Vial) Inj) 50 ml UNSCH PRN IV 08/23/16 19:45 Glucagon 1 mg 1 mg UNSCH PRN OTHER 08/23/16 19:45 (Maxipime Inj/NS Inj) 100 ml @ 200 mls/hr Q24H IV 08/24/16 19:00 08/28/16 18:29 (Apresoline Inj) 10 mg Q6H PRN IV 08/24/16 11:00 08/26/16 04:10 (Oscal) 500 mg HS PO 08/24/16 21:00 08/28/16 21:23 (Bumetanide) 2 mg DAILY PO 08/25/16 11:00 08/29/16 10:21 (Rocaltrol) 0.25 mcg MoWeFr PO 08/27/16 12:00 08/29/16 12:00 (Tylenol-Codeine #3) 1 tab Q6H PRN PO 08/26/16 00:30 08/29/16 10:57 (SoluMEDROL INJ) 40 mg Q8HR IV PUSH 08/26/16 14:00 08/29/16 13:30 (Norvasc) 5 mg DAILY PO 08/26/16 11:00 08/29/16 10:23 (KCl) 20 meq DAILY PO 08/27/16 09:00 08/29/16 10:21 (Levemir Inj) 40 units Q12HR SQ 08/28/16 21:00 08/29/16 10:30 (NS Flush) 2 ml BID IV FLUSH 08/28/16 21:00 08/29/16 09:00 (NS Flush) 2 ml UNSCH PRN IV FLUSH 08/28/16 15:30 (NovoLOG INJ) 25 units TIDAC SQ 5/31/17 12:00 (Heparin Inj) 5,000 units Q8HR SQ 08/29/16 14:00 08/30/16 21:00 08/29/16 13:31 Physical Exam General Appearance: Well Developed, No Acute Distress, Comfortable Eyes Eye Exam: Sclera White Neck Neck Exam: Trachea Midline Pulmonary Resp Exam: Clear Bilaterally, Breath Sounds Equal, Diminished Breath Sounds Cardiology CV Exam: Regular, Normal Sinus Rhythm, Good Perfusion Gastrointestinal/Abdomen GI Exam: Soft, Non-Tender Integumentary Skin Exam: Clear, Warm Extremeties Extremities Exam: Trace Edema (bilat ankles ) Neurologic Neuro Exam: Alert, Awake, Oriented Psychiatric Psych Exam: Appropriate Responses Assessment/Plan Discussed Condition With: Patient Problem List: (1) Acute kidney injury superimposed on chronic kidney disease Plan: SCr remains at baseline UOP good. Continue on Bumex 2mg po QD at the present Will continue to see her periodically as needed, but at this point she is renally at her baseline. Medications should be adjusted for the patient's estimated GFR if clinically indicated. Avoid agents with significant potential for nephrotoxicity possible including NSAIDs for analgesia, iodine contrast agents. Gadolinium is contraindicated if the GFR is below 30. (2) Acute exacerbation of chronic obstructive pulmonary disease Plan: Reviewed pulmo notes. Pending lung bx (3) CKD (chronic kidney disease) stage 3, GFR 30-59 ml/min Plan: As mentioned above biopsy proven diabetic nephropathy with superimposed arteriosclerosis severe. Severe interstitial fibrosis and tubular atrophy were present on the biopsy about a year ago which are poor prognostic indicators as far as preservation of renal function is concerned for the future. Patient aware of same. (4) Hypocalcemia Plan: Secondary to secondary hyperparathyroidism renal disease. Vitamin D 25- hydroxy level within normal range. Continue calcitriol (5) Secondary hyperparathyroidism of renal origin Plan: As above. (6) Essential hypertension Plan: BP stable. Continue on current regimen Lucia Leon August 29, 2016 16:37
--- NOTE | 2016-08-29 20:11 | HHI.PR ---
Subjective Remarks 50 YO AA female with Lupus,YOJANA,COPD No Fever Weaned to 3 LNC Feels better Uses CPAP Surgery cancelled due to uncontrolled BS Objective Vital Signs Vital Signs Date Time Temp Pulse Resp B/P Pulse Ox O2 Delivery O2 Flow Rate FiO2 08/29/16 19:53 98 Nasal Cannula 08/29/16 11:00 97.6 72 18 128/79 96 08/29/16 10:32 96 Nasal Cannula 3.00 08/29/16 09:00 97.8 73 18 128/79 96 08/29/16 07:30 Nasal Cannula 2.00 08/29/16 05:10 62 08/29/16 04:10 96 30 08/29/16 04:00 62 08/29/16 03:00 98.0 66 18 158/87 100 08/29/16 03:00 100 Bi-Pap 08/29/16 03:00 66 08/29/16 02:00 70 08/29/16 01:11 68 08/29/16 00:38 16 08/29/16 00:37 97 30 08/29/16 00:00 78 08/28/16 23:30 98.0 77 18 120/75 96 08/28/16 23:00 96 Nasal Cannula 2.00 08/28/16 23:00 76 08/28/16 22:00 98 08/28/16 21:00 80 I/O 08/28/16 08/28/16 08/28/16 08/29/16 08/29/16 08/29/16 07:00 15:00 23:00 07:00 15:00 23:00 Intake Total 240 ml 1630 ml 1000 ml Output Total 1000 ml 2250 ml 2600 ml Balance -760 ml -620 ml -1600 ml Intake Oral 240 ml 1630 ml 1000 ml Output Urine Total 1000 ml 2250 ml 2600 ml Result Diagram: 08/29/16 0500 08/29/16 0506 Objective Remarks GENERAL: WBWN Female, NAD SKIN: Warm and dry. HEAD: Normocephalic. EYES: No scleral icterus. No injection or drainage. NECK: Supple, trachea midline. No JVD or lymphadenopathy. CARDIOVASCULAR: Regular rate and rhythm without murmurs, gallops, or rubs. RESPIRATORY: Breath sounds equal bilaterally. No accessory muscle use. GASTROINTESTINAL: Abdomen soft, non-tender, nondistended. MUSCULOSKELETAL: No cyanosis, or edema. BACK: Nontender without obvious deformity. No CVA tenderness. A/P Assessment and Plan Dysnoea and Hypoxia ILd, ? etiology Lupus COPD YOJANA DM CKD PLAN: IV Solumedrol Aerosol nebs cont Abx Monitor Dez Orellana MD August 29, 2016 20:11
[2016-08-29] MEDS: CALCIUM CARBONATE 1.25 GM (CA 500 MG) TAB PO SCH (21:01)
[2016-08-29] MEDS: MONTELUKAST SODIUM 10 MG TAB PO SCH (21:01)
[2016-08-29] MEDS: CEFEPIME INJ 2,000 MG in SODIUM CHLORIDE 0.9% INJ 100 ML IV SCH (21:02)
[2016-08-29] MEDS: ZOLPIDEM TARTRATE 5 MG TAB PO PRN (22:41)
[2016-08-30] VITALS (28 sets, daily range): BP systolic 117–152; BP diastolic 63–86; PULSE 58–102; RESP 16–18; TEMP 97.2–98.5; O2SAT 94–100
[2016-08-30] MEDS: INSULIN ASPART SUPPLEMENTAL SCALE SQ SCH ×4 (05:08→20:52)
[2016-08-30] MEDS: HEPARIN SODIUM - SQ 10,000 UNITS/ML VIAL SQ SCH ×2 (06:16→16:31)
[2016-08-30] MEDS: methylPREDNISolone SOD SUCC 40 MG/1 ML VIAL IV PUSH SCH ×2 (06:16→17:42)
[2016-08-30 06:59] LABS: HEMATOCRIT 37.8 % (35.0-46.0); MEAN CELL VOLUME 85.3 FL (80.0-100.0); MEAN CORPUSCULAR HEMOGLOBIN 27.2 PG (27.0-34.0); MEAN CORPUSCULAR HGB CONC 31.9 % (32.0-36.0); PLATELET COUNT 328 TH/MM3 (150-450); RED BLOOD COUNT 4.43 MIL/MM3 (4.00-5.30); RED CELL DISTRIBUTION WIDTH 17.2 % (11.6-17.2); REVIEW FLAG FINAL; WHITE BLOOD COUNT 13.2 TH/MM3 (4.0-11.0)
[2016-08-30 07:04] LABS: BICARBONATE 29.3 MEQ/L (21.0-32.0); POTASSIUM 4.8 MEQ/L (3.5-5.1)
--- NOTE | 2016-08-30 08:49 | HHI.FPPN ---
Subjective Remarks Overnight and yesterday evening, patient continued to have lability of blood sugars. She did have a fasting blood sugar in the 160's. Unfortunately, when her meal was then given, the 25 units of meal coverage was held without physician notification. Recheck of her blood sugar after that time was in the 500's. The 25 units was given with response into the 130's and then an additional 12 units of sliding scale was administered. Patient continues to be asymptomatic with her hyperglycemia without nausea, abdominal pain, or confusion. She is now on 40 units solumedrol every 12 hrs. She continues to endorse improvement in her breathing while on steroids. She is scheduled to undergo VATS tomorrow AM. See plan for blood sugar management below. (Deep Sauceda MD R3) Objective Vitals Vital Signs Date Time Temp Pulse Resp B/P Pulse Ox O2 Delivery O2 Flow Rate FiO2 08/30/16 06:00 60 08/30/16 05:00 60 08/30/16 04:02 100 30 08/30/16 04:00 59 08/30/16 04:00 67 18 148/86 97 08/30/16 03:00 60 08/30/16 03:00 99 Nasal Cannula 2.00 08/30/16 02:00 60 08/30/16 01:50 100 30 08/30/16 01:00 64 08/30/16 00:00 64 08/30/16 00:00 98.0 63 16 152/84 100 08/29/16 23:45 93 30 08/29/16 23:40 99 Nasal Cannula 2.00 08/29/16 23:00 70 08/29/16 22:00 78 08/29/16 21:45 95 Nasal Cannula 1.00 08/29/16 21:00 78 08/29/16 20:00 98.1 78 14 126/76 97 08/29/16 20:00 76 08/29/16 19:53 98 Nasal Cannula 08/29/16 19:00 96 08/29/16 16:00 97.8 73 18 128/79 96 08/29/16 12:00 112 08/29/16 12:00 69 08/29/16 11:00 97.6 72 18 128/79 96 08/29/16 10:32 96 Nasal Cannula 3.00 08/29/16 09:00 97.8 73 18 128/79 96 I/O 08/29/16 08/29/16 08/29/16 08/30/16 08/30/16 08/30/16 07:00 15:00 23:00 07:00 15:00 23:00 Intake Total 1000 ml 480 ml 580 ml Output Total 2600 ml 2000 ml Balance -1600 ml 480 ml -1420 ml Intake Oral 1000 ml 480 ml 480 ml IV Total 100 ml Output Urine Total 2600 ml 2000 ml # Bowel Movements 0 (Deep Sauceda MD R3) Result Diagram: 08/30/1652408/30/16524 Objective Remarks GENERAL: Sitting at edge of bed, on 2-3L nasal cannula, able to speak in complete sentences SKIN: No rashes, ecchymoses or lesions. EYES: Extraocular motions intact. NECK: Trachea midline. No lymphadenopathy. CARDIOVASCULAR: Regular rate and rhythm without murmurs, gallops, or rubs. trace LE edema to level of horner. RESPIRATORY: Diffuse crackles bilaterally, greater at bases, no wheezing GASTROINTESTINAL: Abdomen soft, non-tender, obese. No guarding. MUSCULOSKELETAL: No calf tenderness. NEUROLOGICAL: Awake and alert. Cranial nerves II through XII intact. Motor and sensory grossly within normal limits. Normal speech. (Deep Sauceda MD R3) A/P Assessment and Plan 50 yo F, hx of pulmonary fibrosis and lupus, presenting with respiratory failure. Discharge Planning Pending ability to tolerate home 2L NC, VATS procedure, and stable blood sugars. Anticipate discharge to home in 2-3 days. (Deep Sauceda MD R3) Attending Attestation Patient seen and examined. Case reviewed and discussed with the resident team. Agree with plan of care as discussed with me and documented in the resident note. her glucoses are more labile with all the steroids, being sedentary and change in diet from being in the hospital (Noreen Rodríguez MD) Problem List: (1) Pulmonary fibrosis Status: Acute Plan: Patient with hx of lupus, admitted for respiratory failure. Blood gas on admission: O2 saturation 90, pH 7.5, PCO2 42. ACS r/o reassuring. Patient is on 2-3 L NC at home. CT shows evidence of pulmonary fibrosis. - Pulmonology following, appreciate recommendations - Cardiothoracic surgery has been consulted for lung biopsy, appreciate recommendations and intervention --> Anticipate VATS tomorrow AM - Continue Cefepime 2 g IV q24 - renal dosing, started 08/24 - Continue Azithromycin, started 08/24 - Duonebs q4hrs, with albuterol PRN - Solumedrol 40 mg IV q12h, consider decreasing if respiratory status improves - -> plan for 20-40mg prednisone PO at time of discharge - Continue Symbicort - Singulair 10 mg at night - Acapella and respiratory spirometer - Follow up PFT's (2) Diabetes mellitus Status: Chronic Plan: Home medications: Levemir 40 units BID, Novolog 30 units TIDAC. Hemoglobin A1c 9.5 from 05/02/16. Serum glucose 44 on presentation to emergency department, therefore insulin was held. Since that time, glucose has been labile in the 300-500s range. Exacerbated by steroid treatments. Current regimen appears to be adequate if insulin administered during meals. Therefore , will proceed with following plan: -Continue Levemir to home dose of 40 units BID -Continue NovoLog to 25 units TIDAC -Continue medium-dose sliding scale -Will monitor very closely during the day ensuring patient receives meal coverage. If blood sugar remains >300 at 5pm, will transfer patient to the unit to receive an insulin drip overnight in anticipation for VATS procedure in the AM. (3) Lupus Status: Acute Plan: Pt on Plaquenil 200mg BID and prednisone 10mg at home. * Continue home Plaquenil * Dr. Rodríguez has reached out to patient's [employer] --> patient could likely benefit greatly from a biologic. * Increase home steroids to 20-40mg until follow up with Rheum as outpatient (4) Acute renal failure Status: Acute Plan: Patient with acute on chronic renal failure. GFR on admission 15, down from baseline of 40s. Likely due to decreased perfusion secondary to sepsis, now resolving. Cr 3.23 on admission -> 1.64. Patient had CT-guided needle biopsy of right kidney on 08/01/15. Pathology report diagnosed as: Diffuse and nodular diabetic glomerulosclerosis. Global and segmental glomerulosclerosis. Interstitial fibrosis and tubular atrophy, severe. Arteriosclerosis, severe. - Nephrology on board - Avoid nephrotoxic agents - Renally dose medications - Calcitriol for secondary hyperparathyroidism (5) FEN/PPX Status: Acute Plan: PO fluids Nutrition: 2200 ADA DVT PPX: Heparin GI PPX: Protonix (on steroid treatment) Electrolytes: Monitor (Deep Sauceda MD R3) Problem Qualifiers (1) Diabetes mellitus: Qualified Code: E11.9 - Type 2 diabetes mellitus without complication, with long-term current use of insulin Deep Sauceda MD R3 Aug 30, 2016 08:49 Noreen Rodríguez MD Sep 02, 2016 12:08
[2016-08-30] MEDS: SODIUM CHLORIDE 0.9% FLUSH 10 ML FLUSH IV FLUSH SCH ×2 (09:00→20:56)
[2016-08-30] MEDS: BUDESONIDE-FORMOTEROL 160/4.5 MCG INHALER INH SCH ×2 (09:08→20:54)
[2016-08-30] MEDS: PANTOPRAZOLE SOD 40 MG DELAYED RELEASE TAB PO SCH (09:09)
[2016-08-30] MEDS: BUMETANIDE 1 MG TAB PO SCH (09:09)
[2016-08-30] MEDS: GABAPENTIN 400 MG CAP PO SCH ×2 (09:09→20:55)
[2016-08-30] MEDS: POTASSIUM CHLORIDE 10 MEQ CONTROLLED RELEASE TAB PO SCH (09:09)
[2016-08-30] MEDS: DOCUSATE SODIUM 50 MG/SENNA 8.6 MG TAB PO SCH ×2 (09:09→20:55)
[2016-08-30] MEDS: amLODIPine BESYLATE 5 MG TAB PO SCH (09:09)
[2016-08-30] MEDS: HYDROXYCHLOROQUINE SULFATE 200 MG TAB PO SCH ×2 (09:09→20:55)
[2016-08-30] MEDS: ACETAMINOPHEN/CODEINE 300 MG/30 MG TAB PO PRN ×2 (09:15→20:56)
[2016-08-30] MEDS: INSULIN ASPART 1,000 UNITS/10 ML VIAL SQ SCH ×3 (09:18→16:40)
[2016-08-30] MEDS: INSULIN DETEMIR 100 UNITS/ML VIAL SQ SCH ×2 (09:19→20:51)
--- NOTE | 2016-08-30 10:09 | PD.CAR.PN ---
CVT Progress Note Subjective/Hospital Course: 50 yo F, hx of pulmonary fibrosis and lupus, presenting with respiratory failure. Blood gas on admission: O2 saturation 90, pH 7.5, PCO2 42. ACS r/o reassuring. Patient is on 2-3 L NC at home. CT shows evidence of pulmonary fibrosis. - Cardiothoracic surgery has been consulted for lung biopsy 08/29 Patient preop for thoracoscopic lung biopsy today, but her blood sugar is out of control. Surgery cancelled secondary to hyperglycemia. 08/30 BGM still labile is tentatively scheduled for lung bx in am Objective: GENERAL: A&0 x 3 , on nasal cannula SKIN: Warm and dry. HEAD: Normocephalic. EYES: No scleral icterus. No injection or drainage. NECK: Supple, trachea midline. No JVD or lymphadenopathy. CARDIOVASCULAR: Regular rate and rhythm without murmurs, gallops, or rubs. RESPIRATORY: Breath sounds equal bilaterally. diminished in bases, no further wheezing No accessory muscle use. GASTROINTESTINAL: Abdomen soft, non-tender, nondistended. MUSCULOSKELETAL: No cyanosis, or edema. BACK: Nontender without obvious deformity. No CVA tenderness. Vital Signs Date Time Temp Pulse Resp B/P Pulse Ox O2 Delivery O2 Flow Rate FiO2 08/30/16 09:05 94 08/30/16 09:05 94 Nasal Cannula 1.00 08/30/16 07:30 98.5 102 18 136/84 96 08/30/16 06:00 60 08/30/16 05:00 60 08/30/16 04:02 100 30 08/30/16 04:00 59 08/30/16 04:00 67 18 148/86 97 08/30/16 03:00 60 08/30/16 03:00 99 Nasal Cannula 2.00 08/30/16 02:00 60 08/30/16 01:50 100 30 08/30/16 01:00 64 08/30/16 00:00 64 08/30/16 00:00 98.0 63 16 152/84 100 08/29/16 23:45 93 30 08/29/16 23:40 99 Nasal Cannula 2.00 08/29/16 23:00 70 08/29/16 22:00 78 08/29/16 21:45 95 Nasal Cannula 1.00 08/29/16 21:00 78 08/29/16 20:00 98.1 78 14 126/76 97 08/29/16 20:00 76 08/29/16 19:53 98 Nasal Cannula 08/29/16 19:00 96 08/29/16 16:00 97.8 73 18 128/79 96 08/29/16 12:00 112 08/29/16 12:00 69 08/29/16 11:00 97.6 72 18 128/79 96 08/29/16 10:32 96 Nasal Cannula 3.00 Labs: Laboratory Tests Test 08/30/16 05:25 White Blood Count 13.2 TH/MM3 (4.0-11.0) Red Blood Count 4.43 MIL/MM3 (4.00-5.30) Hemoglobin 12.1 GM/DL (11.6-15.3) Hematocrit 37.8 % (35.0-46.0) Mean Corpuscular Volume 85.3 FL (80.0-100.0) Mean Corpuscular Hemoglobin 27.2 PG (27.0-34.0) Mean Corpuscular Hemoglobin 31.9 % Concent (32.0-36.0) Red Cell Distribution Width 17.2 % (11.6-17.2) Platelet Count 328 TH/MM3 (150-450) Mean Platelet Volume 8.1 FL (7.0-11.0) Sodium Level 133 MEQ/L (136-145) Potassium Level 4.8 MEQ/L (3.5-5.1) Chloride Level 96 MEQ/L (98-107) Carbon Dioxide Level 29.3 MEQ/L (21.0-32.0) Anion Gap 8 MEQ/L (5-15) Blood Urea Nitrogen 43 MG/DL (7-18) Creatinine 1.37 MG/DL (0.50-1.00) Estimat Glomerular Filtration 49 ML/MIN (>89) Rate Random Glucose 288 MG/DL (74-106) Calcium Level 8.8 MG/DL (8.5-10.1) Phosphorus Level 3.7 MG/DL (2.5-4.9) Albumin 3.1 GM/DL (3.4-5.0) Result Diagram: 08/30/1652408/30/1625 Plan: on ABX, Duonebs q4hrs, with albuterol PRN - Solumedrol 40 mg IV q12h, consider decreasing if respiratory status improves - -> plan for 20-40mg prednisone PO at time of discharge - Continue Symbicort - Singulair 10 mg at night - Acapella and respiratory spirometer (2) Diabetes mellitus Status: Chronic Plan: Home medications: Levemir 40 units BID, Novolog 30 units TIDAC. Hemoglobin A1c 9.5 from 05/02/16. Serum glucose 44 on presentation to emergency department, therefore insulin was held. Since that time, glucose has been labile in the 300-500s range. Exacerbated by steroid treatments. Current regimen appears to be adequate if insulin administered during meals. Therefore , will proceed with following plan: Levemir to home dose of 40 units BID NovoLog to 25 units TIDAC medium-dose sliding scale PCP to monitor very closely during the day ensuring patient receives meal coverage. If blood sugar remains >300 at 5pm, they will transfer patient to the unit to receive an insulin drip overnight in anticipation for VATS procedure in the AM. (3) Lupus Status: Acute Plan: Pt on Plaquenil 200mg BID and prednisone 10mg at home. * Increase home steroids to 20-40mg until follow up with Rheum as outpatient (4) Acute renal failure Status: Acute Plan: Patient with acute on chronic renal failure. GFR on admission 15, down from baseline of 40s. Likely due to decreased perfusion secondary to sepsis, now resolving. Cr 3.23 on admission -> 1.64. Patient had CT-guided needle biopsy of right kidney on 08/01/15. Pathology report diagnosed as: Diffuse and nodular diabetic glomerulosclerosis. Global and segmental glomerulosclerosis. Interstitial fibrosis and tubular atrophy, severe. Arteriosclerosis, severe. - Nephrology on board - - Calcitriol for secondary hyperparathyroidism Sara Moser Aug 30, 2016 10:09
--- NOTE | 2016-08-30 14:40 | HHI.FPPN ---
Addendum to progress note ADDENDUM Reason for addendum: Additonal documentation Additional information Routine chart review this afternoon reveals a blood glucose level of 68 at 11: 00. Neither myself nor the attending physician were notified. Repeat blood sugar was not documented until 2:22 PM with repeat reading of 297. Call and spoke to nursing staff, patient is reportedly alert and doing well. A/P: DM: - Counselled recommendations that physician be notified for all blood glucose levels <70 - Repeat blood sugar must be obtained within 1 hrs of any level <70 and repeat readings every 15 minutes if glucagon is administered. - Will monitor blood sugar readings very closely - If this episode occurred during normal TID A/C dosing, will decrease short acting insulin coverage. dw Dr. Anne MD ADDENDUM: 16:40. Discussed patient with current nursing staff. Explained that pulse of 68 with incorrectly written in blood glucose area and that patient did not have a blood glucose of 68. All documented blood glucoses in EMR are now correct per her account. Patient will now be receiving dinner and short acting insulin as scheduled. Deep Sauceda MD R3 Aug 30, 2016 14:40
--- NOTE | 2016-08-30 19:38 | HHI.PR ---
Subjective Remarks 50 YO AA female with Lupus,YOJANA,COPD No Fever Weaned to 3 LNC Uses CPAP Feels better Objective Vital Signs Vital Signs Date Time Temp Pulse Resp B/P Pulse Ox O2 Delivery O2 Flow Rate FiO2 08/30/16 17:35 97 Nasal Cannula 1.00 08/30/16 15:00 98.3 73 18 124/75 97 08/30/16 12:00 76 08/30/16 11:00 97.6 88 18 131/79 94 08/30/16 11:00 96 Nasal Cannula 3.00 08/30/16 11:00 68 08/30/16 10:00 80 08/30/16 09:05 94 08/30/16 09:05 94 Nasal Cannula 1.00 08/30/16 09:00 68 08/30/16 08:00 58 08/30/16 07:30 98.5 102 18 136/84 96 08/30/16 07:00 96 Nasal Cannula 3.00 08/30/16 07:00 61 08/30/16 06:00 60 08/30/16 05:00 60 08/30/16 04:02 100 30 08/30/16 04:00 59 08/30/16 04:00 67 18 148/86 97 08/30/16 03:00 60 08/30/16 03:00 99 Nasal Cannula 2.00 08/30/16 02:00 60 08/30/16 01:50 100 30 08/30/16 01:00 64 08/30/16 00:00 64 08/30/16 00:00 98.0 63 16 152/84 100 08/29/16 23:45 93 30 08/29/16 23:40 99 Nasal Cannula 2.00 08/29/16 23:00 70 08/29/16 22:00 78 08/29/16 21:45 95 Nasal Cannula 1.00 08/29/16 21:00 78 08/29/16 20:00 98.1 78 14 126/76 97 08/29/16 20:00 76 08/29/16 19:53 98 Nasal Cannula I/O 08/29/16 08/29/16 08/29/16 08/30/16 08/30/16 08/30/16 07:00 15:00 23:00 07:00 15:00 23:00 Intake Total 1000 ml 480 ml 580 ml Output Total 2600 ml 2000 ml Balance -1600 ml 480 ml -1420 ml Intake Oral 1000 ml 480 ml 480 ml IV Total 100 ml Output Urine Total 2600 ml 2000 ml # Bowel Movements 0 Result Diagram: 08/30/1652408/30/16524 Objective Remarks GENERAL: WBWN Female, NAD SKIN: Warm and dry. HEAD: Normocephalic. EYES: No scleral icterus. No injection or drainage. NECK: Supple, trachea midline. No JVD or lymphadenopathy. CARDIOVASCULAR: Regular rate and rhythm without murmurs, gallops, or rubs. RESPIRATORY: Breath sounds equal bilaterally. No accessory muscle use. GASTROINTESTINAL: Abdomen soft, non-tender, nondistended. MUSCULOSKELETAL: No cyanosis, or edema. BACK: Nontender without obvious deformity. No CVA tenderness. A/P Assessment and Plan Dysnoea and Hypoxia ILd, ? etiology Lupus COPD YOJANA DM CKD PLAN: IV Solumedrol Aerosol nebs cont Abx Monitor BS surgery scheduled for AM. Dez Millan MD Aug 30, 2016 19:38
[2016-08-30] MEDS: CEFEPIME INJ 2,000 MG in SODIUM CHLORIDE 0.9% INJ 100 ML IV SCH (20:55)
[2016-08-30] MEDS: MONTELUKAST SODIUM 10 MG TAB PO SCH (20:55)
[2016-08-30] MEDS: ZOLPIDEM TARTRATE 5 MG TAB PO PRN (20:55)
[2016-08-30] MEDS: CALCIUM CARBONATE 1.25 GM (CA 500 MG) TAB PO SCH (20:55)
[2016-08-31] VITALS (22 sets, daily range): BP systolic 101–144; BP diastolic 68–88; PULSE 58–100; RESP 16–25; TEMP 98.2–98.6; O2SAT 93–100
[2016-08-31] MEDS ORDERED: LACTATED RINGER'S 1000 ML IV PRN (04:30)
[2016-08-31] MEDS ORDERED: SODIUM CHLORID 0.9% 500 ML IV PRN (04:30)
[2016-08-31] MEDS ORDERED: CHLORHEXIDINE GLUCONATE 2 % 1 PACK (2 CLOTHS) TOPICAL PRN (04:30)
[2016-08-31] MEDS ORDERED: POVIDONE IODINE 5% (ANTISEPSIS KIT) 4 APPLICATIONS EACH NARE PRN (04:30)
[2016-08-31] MEDS: INSULIN ASPART SUPPLEMENTAL SCALE SQ SCH ×4 (05:19→22:45)
[2016-08-31] MEDS: methylPREDNISolone SOD SUCC 40 MG/1 ML VIAL IV PUSH SCH ×2 (05:19→18:23)
[2016-08-31] MEDS ORDERED: BUPIVACAINE HCL PF 0.5% 30 ML VIAL ONE (07:57)
[2016-08-31] MEDS ORDERED: ceFAZolin 2 GM PREMIX 50 ML ONE (07:58)
[2016-08-31] MEDS: INSULIN ASPART 1,000 UNITS/10 ML VIAL SQ SCH ×3 (08:00→18:30)
[2016-08-31] MEDS ORDERED: RESP: ALBUTEROL 2.5 MG/IPRATROPIUM 0.5 MG NEB (SCH) ONE (08:17)
[2016-08-31] MEDS ORDERED: MIDAZOLAM HCL 2 MG/2 ML VIAL ONE (08:30)
[2016-08-31] MEDS ORDERED: FAMOTIDINE 20 MG/2 ML VIAL ONE (08:30)
[2016-08-31] MEDS ORDERED: INSULIN ASPART 1,000 UNITS/10 ML VIAL SQ ONE (08:30)
[2016-08-31] MEDS: INSULIN DETEMIR 100 UNITS/ML VIAL SQ SCH ×2 (09:00→21:00)
[2016-08-31] MEDS: BUDESONIDE-FORMOTEROL 160/4.5 MCG INHALER INH SCH ×2 (09:00→21:38)
[2016-08-31] MEDS: ceFAZolin 2 GM PREMIX 50 ML IV SCH (09:10)
[2016-08-31] MEDS ORDERED: MISC INFORMATION OTHER ONE (11:00)
[2016-08-31] MEDS ORDERED: ONDANSETRON HCL 4 MG/2 ML VIAL IV PUSH PRN (11:00)
[2016-08-31] MEDS ORDERED: MAGNESIUM HYDROXIDE SUSP 30 ML CUP PO PRN (11:00)
[2016-08-31] MEDS ORDERED: RESP: ALBUTEROL 2.5 MG/3 ML NEB (PRN) NEB (11:00)
[2016-08-31] MEDS ORDERED: NALOXONE HCL 0.4 MG/ML AMP IV PRN (11:00)
[2016-08-31] MEDS ORDERED: GLUCAGON 1 MG/ML VIAL IV PRN (11:00)
[2016-08-31] MEDS ORDERED: SODIUM CHLORIDE 0.9% FLUSH 10 ML FLUSH IV FLUSH PRN (11:00)
[2016-08-31] MEDS ORDERED: ACETAMINOPHEN 325 MG TAB PO PRN (11:00)
[2016-08-31] MEDS ORDERED: DEXTROSE 50% IN WATER 50 ML VIAL(D50) IV PRN (11:00)
[2016-08-31] MEDS ORDERED: Post-op Orders (for Pharmacy) MISC OTHER ONE (11:30)
[2016-08-31] MEDS ORDERED: DO NOT ADM ANY ANTICOAGULANT DRUGS PRN (11:30)
--- NOTE | 2016-08-31 11:38 | HHI.FPPN ---
Subjective Remarks No acute events overnight. Vital signs remained stable. Blood glucose was maintained below 300 without any reported episodes of hypoglycemia. Patient underwent VATS this AM with placement of left sided chest tube. Currently maintaining saturations on 4 L NC. Pain controlled with FINANCIAL ANALYST INTERN pump. (Deep Sauceda MD R3) Objective Vitals Vital Signs Date Time Temp Pulse Resp B/P Pulse Ox O2 Delivery O2 Flow Rate FiO2 08/31/16 08:20 95 Nasal Cannula 3.00 08/31/16 06:21 100 30 08/31/16 06:00 58 08/31/16 04:00 98.4 60 18 139/76 100 08/31/16 04:00 60 08/31/16 03:00 Bi-Pap 30 08/31/16 02:00 62 08/31/16 01:00 64 08/31/16 00:43 96 30 08/31/16 00:43 96 BiPAP 30 08/31/16 00:00 98.3 68 18 144/88 99 08/31/16 00:00 66 08/30/16 23:00 Nasal Cannula 2.00 08/30/16 22:00 72 08/30/16 21:00 70 08/30/16 20:00 97.2 72 18 117/63 96 08/30/16 20:00 82 08/30/16 19:00 Nasal Cannula 2.00 08/30/16 18:00 78 08/30/16 17:35 97 Nasal Cannula 1.00 08/30/16 17:00 74 08/30/16 16:00 76 08/30/16 15:00 98.3 73 18 124/75 97 08/30/16 15:00 96 Nasal Cannula 3.00 08/30/16 15:00 76 08/30/16 14:00 94 08/30/16 13:00 74 08/30/16 12:00 76 I/O 08/30/16 08/30/16 08/30/16 08/31/16 08/31/16 08/31/16 07:00 15:00 23:00 07:00 15:00 23:00 Intake Total 580 ml 720 ml Output Total 2000 ml 1800 ml Balance -1420 ml 720 ml -1800 ml Intake Oral 480 ml 720 ml IV Total 100 ml Output Urine Total 2000 ml 1800 ml # Bowel Movements 0 (Deep Sauceda MD R3) Result Diagram: 08/30/1652408/30/16524 Objective Remarks GENERAL: Laying in PACU, on 4 L nasal cannula SKIN: No rashes, ecchymoses or lesions. EYES: Extraocular motions intact. NECK: Trachea midline. No lymphadenopathy. CARDIOVASCULAR: Regular rate and rhythm without murmurs, gallops, or rubs. trace LE edema to level of horner. RESPIRATORY: Coarse upper airway sounds A/P. Chest tube in left side draining serosanguineous fluid GASTROINTESTINAL: Abdomen soft, non-tender, obese. MUSCULOSKELETAL: No calf tenderness. NEUROLOGICAL: Awake and alert. Cranial nerves II through XII intact. Motor and sensory grossly within normal limits. Normal speech. (Deep Sauceda MD R3) A/P Assessment and Plan 50 yo F, hx of pulmonary fibrosis and lupus, presenting with respiratory failure. Discharge Planning Pending removal of chest tube and clearance by pulmonology. Anticipate discharge to home in 2-3 days. (Deep Sauceda MD R3) Attending Attestation Patient seen and examined. Case reviewed and discussed with the resident team. Agree with plan of care as discussed with me and documented in the resident note. doing well with glucose control (Noreen Rodríguez MD) Problem List: (1) Pulmonary fibrosis Status: Acute Plan: Patient with hx of lupus, admitted for respiratory failure. Blood gas on admission: O2 saturation 90, pH 7.5, PCO2 42. ACS r/o reassuring. Patient is on 2-3 L NC at home. CT shows evidence of pulmonary fibrosis. - Pulmonology following, appreciate recommendations - Cardiothoracic surgery following - s/p VATS with left sided chest tube 08/31 - Continue Cefepime 2 g IV q24 - renal dosing, started 08/24 - Continue Azithromycin, started 08/24 - Duonebs q4hrs, with albuterol PRN - Solumedrol 40 mg IV q12h, consider decreasing if respiratory status improves - -> plan for 20-40mg prednisone PO at time of discharge - Continue Symbicort - Singulair 10 mg at night - Acapella and respiratory spirometer - Follow up PFT's (2) Diabetes mellitus Status: Chronic Plan: Home medications: Levemir 40 units BID, Novolog 30 units TIDAC. Hemoglobin A1c 9.5 from 05/02/16. Serum glucose 44 on presentation to emergency department, therefore insulin was held. Since that time, glucose has been labile in the 300-500s range. Exacerbated by steroid treatments. Current regimen appears to be adequate if insulin administered during meals. -Continue Levemir to home dose of 40 units BID -Continue NovoLog to 25 units TIDAC -Continue medium-dose sliding scale -Will monitor very closely during the day ensuring patient receives meal coverage. (3) Lupus Status: Acute Plan: Pt on Plaquenil 200mg BID and prednisone 10mg at home. * Continue home Plaquenil * Dr. Rodríguez has reached out to patient's Layout Worker --> patient could likely benefit greatly from a biologic. * Increase home steroids to 20-40mg until follow up with Rheum as outpatient (4) Acute renal failure Status: Acute Plan: Patient with acute on chronic renal failure. GFR on admission 15, down from baseline of 40s. Likely due to decreased perfusion secondary to sepsis, now resolving. Cr 3.23 on admission -> 1.37. Patient had CT-guided needle biopsy of right kidney on 08/01/15. Pathology report diagnosed as: Diffuse and nodular diabetic glomerulosclerosis. Global and segmental glomerulosclerosis. Interstitial fibrosis and tubular atrophy, severe. Arteriosclerosis, severe. - Nephrology on board - Avoid nephrotoxic agents - Renally dose medications - Calcitriol for secondary hyperparathyroidism (5) FEN/PPX Status: Acute Plan: PO fluids Nutrition: 2200 ADA DVT PPX: Heparin GI PPX: Protonix (on steroid treatment) Electrolytes: Monitor (Deep Sauceda MD R3) Problem Qualifiers (1) Diabetes mellitus: Qualified Code: E11.9 - Type 2 diabetes mellitus without complication, with long-term current use of insulin Deep Sauceda MD R3 Aug 31, 2016 11:37 Noreen Rodríguez MD Sep 02, 2016 12:10
[2016-08-31] MEDS ORDERED: *morphine SULFATE 8 MG/ML PERIprocedure ONLY ONE (11:45)
[2016-08-31] MEDS ORDERED: fentaNYL CITRATE 250 MCG/5 ML AMP ONE (11:47)
[2016-08-31] MEDS ORDERED: *RESP: ALBUTEROL 2.5 MG/3 ML NEB (PRN) PERIprocedural Use ONLY NEB ONE (11:51)
[2016-08-31] MEDS ORDERED: ONDANSETRON HCL 4 MG/2 ML VIAL IV PUSH ONE (12:00)
[2016-08-31] MEDS ORDERED: PROPOFOL 200 MG/20 ML AMP IV ONE (12:00)
[2016-08-31] MEDS ORDERED: NORMOSOL R INJ 1,000 ML IV ONE (12:00)
[2016-08-31] MEDS ORDERED: NEOSTIGMINE 3 MG/3 ML SYR IV ONE (12:00)
--- NOTE | 2016-08-31 12:19 | RADRPT ---
EXAM DATE/TIME: 08/31/2016 11:54 [facility] COMPARISON: CT THORAX W/O CONTRAST, August 24, 2016, 22:49. CHEST SINGLE AP, August 23, 2016, 16:00. INDICATIONS : Post op, thoracotomy. MEDICAL HISTORY : Hypertension. Chronic obstructive pulmonary disease. Diabetes mellitus SURGICAL HISTORY : None. ENCOUNTER: Initial ACUITY: 1 day PAIN SCORE: Non-responsive. LOCATION: Bilateral chest FINDINGS: There is a left-sided chest tube in place. There is subcutaneous emphysema seen at the left lateral c hest. A pneumothorax is not seen. The heart size is enlarged. There is hazy density seen throughout t he left lung and at the right base. CONCLUSION: 1. Left chest tube without a pneumothorax seen. 2. Hazy density throughout the left lung and at the bases bilaterally likely representing underlying atelectasis or consolidation. Edwin Duncan MD on August 31, 2016 at 12:15 Board Certified Radiologist. This report was verified electronically.
[2016-08-31] MEDS: PCA - TOTAL MG MORPHINE DELIVERED PER SHIFT SCH ×2 (14:00→22:00)
[2016-08-31] MEDS: CALCITRIOL 0.25 MCG CAP PO SCH (14:30)
[2016-08-31] MEDS: POTASSIUM CHLORIDE 10 MEQ CONTROLLED RELEASE TAB PO SCH (14:31)
[2016-08-31] MEDS: BUMETANIDE 1 MG TAB PO SCH (14:31)
[2016-08-31] MEDS: amLODIPine BESYLATE 5 MG TAB PO SCH (14:32)
[2016-08-31] MEDS: DOCUSATE SODIUM 50 MG/SENNA 8.6 MG TAB PO SCH ×2 (14:32→21:38)
[2016-08-31] MEDS: HYDROXYCHLOROQUINE SULFATE 200 MG TAB PO SCH ×2 (14:32→21:38)
[2016-08-31] MEDS: GABAPENTIN 400 MG CAP PO SCH ×2 (14:32→21:38)
[2016-08-31] MEDS: ACETAMINOPHEN/CODEINE 300 MG/30 MG TAB PO PRN (14:47)
[2016-08-31] MEDS: RESP: ALBUTEROL 2.5 MG/3 ML NEB (SCH) NEB ×2 (16:00→20:47)
[2016-08-31 16:01] LABS: HEMATOCRIT 42.5 % (35.0-46.0); MEAN CELL VOLUME 88.2 FL (80.0-100.0); MEAN CORPUSCULAR HEMOGLOBIN 27.7 PG (27.0-34.0); MEAN CORPUSCULAR HGB CONC 31.4 % (32.0-36.0); PLATELET COUNT 329 TH/MM3 (150-450); RED BLOOD COUNT 4.82 MIL/MM3 (4.00-5.30); RED CELL DISTRIBUTION WIDTH 17.7 % (11.6-17.2); REVIEW FLAG FINAL; WHITE BLOOD COUNT 21.8 TH/MM3 (4.0-11.0)
[2016-08-31 17:25] LABS: BICARBONATE 25.7 MEQ/L (21.0-32.0)
[2016-08-31 17:26] LABS: POTASSIUM 5.8 MEQ/L (3.5-5.1)
--- NOTE | 2016-08-31 18:03 | HHI.PR ---
Subjective Remarks 50 YO AA female with Lupus,YOJANA,COPD No Fever Weaned to 3 LNC Uses CPAP Had VATS done mild pain Chest tube to suction. Objective Vital Signs Vital Signs Date Time Temp Pulse Resp B/P Pulse Ox O2 Delivery O2 Flow Rate FiO2 08/31/16 16:57 23 08/31/16 14:00 23 08/31/16 12:30 71 19 160/81 96 Nasal Cannula 4 08/31/16 12:15 69 19 159/83 94 Nasal Cannula 4 08/31/16 12:00 69 19 162/95 100 Nasal Cannula 4 08/31/16 11:45 74 24 163/83 85 Nasal Cannula 4 08/31/16 11:35 98.2 77 18 183/96 87 Nasal Cannula 4 08/31/16 08:20 95 Nasal Cannula 3.00 08/31/16 06:21 100 30 08/31/16 06:00 58 08/31/16 04:00 98.4 60 18 139/76 100 08/31/16 04:00 60 08/31/16 03:00 Bi-Pap 30 08/31/16 02:00 62 08/31/16 01:00 64 08/31/16 00:43 96 30 08/31/16 00:43 96 BiPAP 30 08/31/16 00:00 98.3 68 18 144/88 99 08/31/16 00:00 66 08/30/16 23:00 Nasal Cannula 2.00 08/30/16 22:00 72 08/30/16 21:00 70 08/30/16 20:00 97.2 72 18 117/63 96 08/30/16 20:00 82 08/30/16 19:00 Nasal Cannula 2.00 I/O 08/30/16 08/30/16 08/30/16 08/31/16 08/31/16 08/31/16 07:00 15:00 23:00 07:00 15:00 23:00 Intake Total 580 ml 720 ml 1000 ml Output Total 2000 ml 1800 ml 150 ml Balance -1420 ml 720 ml -1800 ml 850 ml Intake Oral 480 ml 720 ml IV Total 100 ml Other 1000 ml Output Urine Total 2000 ml 1800 ml Estimated Blood Loss 150 ml # Bowel Movements 0 Result Diagram: 08/31/16 1440 08/31/16 1440 Objective Remarks GENERAL: WBWN Female, NAD SKIN: Warm and dry. HEAD: Normocephalic. EYES: No scleral icterus. No injection or drainage. NECK: Supple, trachea midline. No JVD or lymphadenopathy. CARDIOVASCULAR: Regular rate and rhythm without murmurs, gallops, or rubs. RESPIRATORY: Breath sounds equal bilaterally. No accessory muscle use. GASTROINTESTINAL: Abdomen soft, non-tender, nondistended. MUSCULOSKELETAL: No cyanosis, or edema. BACK: Nontender without obvious deformity. No CVA tenderness. A/P Assessment and Plan Dysnoea and Hypoxia ILd, ? etiology Lupus COPD YOJANA DM CKD PLAN: IV Solumedrol Aerosol nebs cont Abx Monitor BS chest tube to suction pain controll Dez Millan MD Aug 31, 2016 18:03
[2016-08-31] MEDS: CEFEPIME INJ 2,000 MG in SODIUM CHLORIDE 0.9% INJ 100 ML IV SCH (18:23)
[2016-08-31] MEDS: SODIUM CHLORIDE 0.9% FLUSH 10 ML FLUSH IV FLUSH SCH (21:00)
[2016-08-31] MEDS: DOCUSATE CALCIUM 240 MG CAP PO SCH (21:38)
[2016-08-31] MEDS: CALCIUM CARBONATE 1.25 GM (CA 500 MG) TAB PO SCH (21:38)
[2016-08-31] MEDS: PANTOPRAZOLE SOD 40 MG DELAYED RELEASE TAB PO SCH (21:38)
[2016-08-31] MEDS: MONTELUKAST SODIUM 10 MG TAB PO SCH (21:40)
[2016-09-01] VITALS (26 sets, daily range): BP systolic 112–124; BP diastolic 67–76; PULSE 70–104; RESP 12–20; TEMP 97.8–98.6; O2SAT 88–98
[2016-09-01] MEDS: RESP: ALBUTEROL 2.5 MG/3 ML NEB (SCH) NEB ×4 (03:12→21:33)
--- NOTE | 2016-09-01 04:18 | RADRPT ---
EXAM DATE/TIME: 09/01/2016 03:32 [facility] COMPARISON: CHEST SINGLE AP, August 31, 2016, 11:54. INDICATIONS : Shortness of breath, possible pulmonary disease. MEDICAL HISTORY : Hypertension. Chronic obstructive pulmonary disease. Diabetes mellitus type II. SURGICAL HISTORY : None. ENCOUNTER: Subsequent ACUITY: 2 days PAIN SCORE: 5/10 LOCATION: Bilateral chest FINDINGS: Subcutaneous emphysema is seen on the left. Chest tube is present on the left side. No definite pneum othorax is seen for technique. Cardiomegaly has not changed and hazy parenchymal opacities bilaterall y worse on the left are also similar no change. Pulmonary edema is suspected. CONCLUSION: No appreciable change. Margot Madrigal MD on September 01, 2016 at 4:15 Board Certified Radiologist. This report was verified electronically.
[2016-09-01] MEDS: methylPREDNISolone SOD SUCC 40 MG/1 ML VIAL IV PUSH SCH ×2 (05:09→17:01)
[2016-09-01] MEDS: ACETAMINOPHEN/CODEINE 300 MG/30 MG TAB PO PRN ×4 (05:09→23:10)
[2016-09-01] MEDS: INSULIN ASPART SUPPLEMENTAL SCALE SQ SCH ×3 (05:10→18:00)
[2016-09-01 05:34] LABS: AUTOMATED NEUTROPHIL # 17.2 TH/MM3 (1.8-7.7); BASOPHIL # 0.1 TH/MM3 (0-0.2); BASOPHIL % 0.3 % (0.0-2.0); EOSINOPHIL % 0.1 % (0.0-4.0); LYMPH % 7.2 % (9.0-44.0); LYMPHOCYTE # 1.5 TH/MM3 (1.0-4.8); MEAN CELL VOLUME 86.5 FL (80.0-100.0); MEAN CORPUSCULAR HEMOGLOBIN 27.2 PG (27.0-34.0); MEAN CORPUSCULAR HGB CONC 31.5 % (32.0-36.0); MONO % 8.9 % (0.0-8.0); NEUT % 83.5 % (16.0-70.0); PLATELET COUNT 309 TH/MM3 (150-450); RED BLOOD COUNT 4.51 MIL/MM3 (4.00-5.30); RED CELL DISTRIBUTION WIDTH 17.5 % (11.6-17.2); WHITE BLOOD COUNT 20.5 TH/MM3 (4.0-11.0)
[2016-09-01 05:43] LABS: BICARBONATE 27.1 MEQ/L (21.0-32.0); POTASSIUM 5.4 MEQ/L (3.5-5.1)
[2016-09-01 05:50] LABS: HEMO FLAGS AUTO DIFF
[2016-09-01] MEDS: PCA - TOTAL MG MORPHINE DELIVERED PER SHIFT SCH ×3 (06:00→22:00)
[2016-09-01 07:26] LABS: BANDS 3 % (0-6); METAMYELOCYTES 2 % (0-1); NEUTROPHIL # MANUAL DIFF 16.6 TH/MM3 (1.8-7.7); POLYS (SEG NEUTROPHILS) 76 % (16-70); SCAN/DIFF FINAL DIFF MANUAL; WBC DIFF SAMPLE 100
[2016-09-01 07:27] LABS: PLATELET ESTIMATE SMEAR NORMAL (NORMAL); PLATELET MORPHOLOGY NORMAL (NORMAL)
--- NOTE | 2016-09-01 07:39 | HHI.FPPN ---
Subjective Remarks No acute events overnight. Patient is maintaining saturations on 3 L NC. Pain is adequately controlled with ROVING TECHNICIAN pump. Denies increased work of breathing or fevers. Blood sugars have been running 150-180. Last BM 2 days ago. (Deep Sauceda MD R3) Objective Vitals Vital Signs Date Time Temp Pulse Resp B/P Pulse Ox O2 Delivery O2 Flow Rate FiO2 09/01/16 06:09 16 09/01/16 06:00 91 09/01/16 06:00 16 09/01/16 05:00 88 09/01/16 04:06 96 30 09/01/16 03:00 88 09/01/16 03:00 98 Nasal Cannula 3.00 09/01/16 03:00 98.0 88 12 115/76 98 09/01/16 02:00 70 09/01/16 01:08 96 30 09/01/16 01:00 82 09/01/16 00:00 88 08/31/16 23:15 97 30 08/31/16 23:00 89 08/31/16 23:00 98.2 100 16 120/75 93 08/31/16 23:00 93 Nasal Cannula 3.00 08/31/16 22:00 88 08/31/16 22:00 16 08/31/16 21:00 87 08/31/16 20:48 95 Nasal Cannula 4.00 08/31/16 20:00 87 08/31/16 19:00 98.2 87 16 112/71 94 08/31/16 19:00 94 Nasal Cannula 3.00 08/31/16 18:00 84 08/31/16 17:00 82 08/31/16 16:00 84 08/31/16 16:00 98 Nasal Cannula 4.00 08/31/16 16:00 98.6 86 25 101/68 98 08/31/16 15:00 90 08/31/16 14:00 23 08/31/16 14:00 76 08/31/16 13:00 72 08/31/16 13:00 96 Nasal Cannula 4.00 08/31/16 13:00 98.2 72 25 138/84 96 08/31/16 12:30 71 19 160/81 96 Nasal Cannula 4 08/31/16 12:15 69 19 159/83 94 Nasal Cannula 4 08/31/16 12:00 69 19 162/95 100 Nasal Cannula 4 08/31/16 11:45 74 24 163/83 85 Nasal Cannula 4 08/31/16 11:35 98.2 77 18 183/96 87 Nasal Cannula 4 08/31/16 08:20 95 Nasal Cannula 3.00 I/O 08/31/16 08/31/16 08/31/16 09/01/16 09/01/16 09/01/16 07:00 15:00 23:00 07:00 15:00 23:00 Intake Total 1000 ml 1198 ml 1440 ml Output Total 1800 ml 150 ml 300 ml 1402 ml Balance -1800 ml 850 ml 898 ml 38 ml Intake Oral 480 ml 1440 ml IV Total 718 ml Other 1000 ml Output Urine Total 1800 ml 300 ml 1250 ml Chest Tube Drainage Total 76 ml Drainage Total 76 ml Estimated Blood Loss 150 ml # Bowel Movements 0 0 (Deep Sauceda MD R3) Result Diagram: 09/01/1651209/01/16512 Objective Remarks GENERAL: Sitting up in bed on 3L nasal cannula SKIN: No rashes, ecchymoses. Two CDI bandages on left back. EYES: Extraocular motions intact. NECK: Trachea midline. No lymphadenopathy. CARDIOVASCULAR: Regular rate and rhythm without murmurs, gallops, or rubs. trace LE edema to level of horner. RESPIRATORY: Dry crackles diffusely bilaterally. Chest tube in left side draining serosanguineous fluid with good output GASTROINTESTINAL: Abdomen soft, non-tender, obese. MUSCULOSKELETAL: No calf tenderness. NEUROLOGICAL: Awake and alert. Cranial nerves II through XII intact. Motor and sensory grossly within normal limits. Normal speech. (Deep Sauceda MD R3) A/P Assessment and Plan 50 yo F, hx of pulmonary fibrosis and lupus, presenting with respiratory failure. Discharge Planning Pending removal of chest tube and clearance by pulmonology. Anticipate discharge to home in 1-3 days. (Deep Sauceda MD R3) Attending Attestation Patient seen and examined. Case reviewed and discussed with the resident team. Agree with plan of care as discussed with me and documented in the resident note. s/p biopsy (Noreen Rodríguez MD) Problem List: (1) Pulmonary fibrosis Status: Acute Plan: Patient with hx of lupus, admitted for respiratory failure. Blood gas on admission: O2 saturation 90, pH 7.5, PCO2 42. ACS r/o reassuring. Patient is on 2-3 L NC at home. CT shows evidence of pulmonary fibrosis. Now s/p left lung biopsy via thoracotomy following attempted thorascopic approach 08/31. - Pulmonology following, appreciate recommendations - Cardiothoracic surgery following - left sided chest tube (08/31) with generous output - Repeat CXR 09/01 unchanged - Biopsy pending - ROVING TECHNICIAN for discomfort - Increased Galina-Colace to 2 tab BID - Leukocytosis of 20 following surgery, likely due to stress reaction and steroid use, patient's vitals and exam otherwise reassuring. Will continue to monitor. - Continue Cefepime 2 g IV q24 - renal dosing, started 08/24 - Continue Azithromycin, started 08/24 - Duonebs q4hrs, with albuterol PRN - Solumedrol 40 mg IV q12h, consider decreasing if respiratory status improves - -> plan for 20-40mg prednisone PO at time of discharge - Continue Symbicort - Singulair 10 mg at night - Acapella and respiratory spirometer - Follow up PFT's (2) Diabetes mellitus Status: Chronic Plan: Home medications: Levemir 40 units BID, Novolog 30 units TIDAC. Hemoglobin A1c 9.5 from 05/02/16. Serum glucose 44 on presentation to emergency department, therefore insulin was held. Since that time, glucose has been labile in the 300-500s range. Exacerbated by steroid treatments. Recent blood glucose levels 150-180. -Continue Levemir to home dose of 40 units BID -Continue NovoLog to 25 units TIDAC -Continue medium-dose sliding scale -Will monitor very closely as patient tapers down on steroids (3) Lupus Status: Acute Plan: Pt on Plaquenil 200mg BID and prednisone 10mg at home. * Continue home Plaquenil * Dr. Rodríguez has reached out to patient's [employer] --> patient could likely benefit greatly from a biologic. * Increase home steroids to 20-40mg until follow up with Rheum as outpatient (4) Acute renal failure Status: Acute Plan: Patient with acute on chronic renal failure. GFR on admission 15, down from baseline of 40s. Likely due to decreased perfusion secondary to sepsis, now resolving. Cr 3.23 on admission -> 1.25. No back to 1.63 following surgery yesterday. Patient had CT-guided needle biopsy of right kidney on 08/01/15. Pathology report diagnosed as: Diffuse and nodular diabetic glomerulosclerosis. Global and segmental glomerulosclerosis. Interstitial fibrosis and tubular atrophy, severe. Arteriosclerosis, severe. - Nephrology on board - Avoid nephrotoxic agents - Renally dose medications - Calcitriol for secondary hyperparathyroidism (5) FEN/PPX Status: Acute Plan: PO fluids Nutrition: 1800 ADA DVT PPX: Heparin GI PPX: Protonix (on steroid treatment) Electrolytes: Monitor (Deep Sauceda MD R3) Problem Qualifiers (1) Diabetes mellitus: Qualified Code: E11.9 - Type 2 diabetes mellitus without complication, with long-term current use of insulin Deep Sauceda MD R3 Sep 01, 2016 07:39 Noreen Rodríguez MD Sep 02, 2016 12:10
--- NOTE | 2016-09-01 08:27 | PD.CAR.PN ---
CVT Progress Note Subjective/Hospital Course: 50 yo F, hx of pulmonary fibrosis and lupus, presenting with respiratory failure. Blood gas on admission: O2 saturation 90, pH 7.5, PCO2 42. ACS r/o reassuring. Patient is on 2-3 L NC at home. CT shows evidence of pulmonary fibrosis. - Cardiothoracic surgery has been consulted for lung biopsy 08/29 Patient preop for thoracoscopic lung biopsy today, but her blood sugar is out of control. Surgery cancelled secondary to hyperglycemia. 08/30 BGM still labile is tentatively scheduled for lung bx in am 09/01 Doing well s/p Lung biopsy Maintain CT Ambulate Objective: Vital Signs Date Time Temp Pulse Resp B/P Pulse Ox O2 Delivery O2 Flow Rate FiO2 09/01/16 07:50 Nasal Cannula Humidified 09/01/16 06:09 16 09/01/16 06:00 91 09/01/16 06:00 16 09/01/16 05:00 88 09/01/16 04:06 96 30 09/01/16 03:00 88 09/01/16 03:00 98 Nasal Cannula 3.00 09/01/16 03:00 98.0 88 12 115/76 98 09/01/16 02:00 70 09/01/16 01:08 96 30 09/01/16 01:00 82 09/01/16 00:00 88 08/31/16 23:15 97 30 08/31/16 23:00 89 08/31/16 23:00 98.2 100 16 120/75 93 08/31/16 23:00 93 Nasal Cannula 3.00 08/31/16 22:00 88 08/31/16 22:00 16 08/31/16 21:00 87 08/31/16 20:48 95 Nasal Cannula 4.00 08/31/16 20:00 87 08/31/16 19:00 98.2 87 16 112/71 94 08/31/16 19:00 94 Nasal Cannula 3.00 08/31/16 18:00 84 08/31/16 17:00 82 08/31/16 16:00 84 08/31/16 16:00 98 Nasal Cannula 4.00 08/31/16 16:00 98.6 86 25 101/68 98 08/31/16 15:00 90 08/31/16 14:00 23 08/31/16 14:00 76 08/31/16 13:00 72 08/31/16 13:00 96 Nasal Cannula 4.00 08/31/16 13:00 98.2 72 25 138/84 96 08/31/16 12:30 71 19 160/81 96 Nasal Cannula 4 08/31/16 12:15 69 19 159/83 94 Nasal Cannula 4 08/31/16 12:00 69 19 162/95 100 Nasal Cannula 4 08/31/16 11:45 74 24 163/83 85 Nasal Cannula 4 08/31/16 11:35 98.2 77 18 183/96 87 Nasal Cannula 4 Labs: Laboratory Tests Test 09/01/16 05:13 White Blood Count 20.5 TH/MM3 (4.0-11.0) Red Blood Count 4.51 MIL/MM3 (4.00-5.30) Hemoglobin 12.3 GM/DL (11.6-15.3) Hematocrit 39.0 % (35.0-46.0) Mean Corpuscular Volume 86.5 FL (80.0-100.0) Mean Corpuscular Hemoglobin 27.2 PG (27.0-34.0) Mean Corpuscular Hemoglobin 31.5 % Concent (32.0-36.0) Red Cell Distribution Width 17.5 % (11.6-17.2) Platelet Count 309 TH/MM3 (150-450) Mean Platelet Volume 8.0 FL (7.0-11.0) Neutrophils (%) (Auto) 83.5 % (16.0-70.0) Lymphocytes (%) (Auto) 7.2 % (9.0-44.0) Monocytes (%) (Auto) 8.9 % (0.0-8.0) Eosinophils (%) (Auto) 0.1 % (0.0-4.0) Basophils (%) (Auto) 0.3 % (0.0-2.0) Neutrophils # (Auto) 17.2 TH/MM3 (1.8-7.7) Lymphocytes # (Auto) 1.5 TH/MM3 (1.0-4.8) Monocytes # (Auto) 1.8 TH/MM3 (0-0.9) Eosinophils # (Auto) 0.0 TH/MM3 (0-0.4) Basophils # (Auto) 0.1 TH/MM3 (0-0.2) CBC Comment AUTO DIFF Differential Total Cells 100 Counted Neutrophils % (Manual) 76 % (16-70) Band Neutrophils % 3 % (0-6) Lymphocytes % 8 % (9-44) Monocytes % 11 % (0-8) Neutrophils # (Manual) 16.6 TH/MM3 (1.8-7.7) Metamyelocytes 2 % (0-1) Differential Comment FINAL DIFF MANUAL Platelet Estimate NORMAL (NORMAL) Platelet Morphology Comment NORMAL (NORMAL) Red Cell Morphology Comment NORMAL (NORMAL) Sodium Level 133 MEQ/L (136-145) Potassium Level 5.4 MEQ/L (3.5-5.1) Chloride Level 99 MEQ/L (98-107) Carbon Dioxide Level 27.1 MEQ/L (21.0-32.0) Anion Gap 7 MEQ/L (5-15) Blood Urea Nitrogen 47 MG/DL (7-18) Creatinine 1.63 MG/DL (0.50-1.00) Estimat Glomerular Filtration 40 ML/MIN (>89) Rate Random Glucose 149 MG/DL (74-106) Calcium Level 8.5 MG/DL (8.5-10.1) Result Diagram: 09/01/16 0513 09/01/16 0513 Kay Salter MD Sep 01, 2016 08:26
[2016-09-01] MEDS: BUDESONIDE-FORMOTEROL 160/4.5 MCG INHALER INH SCH ×2 (08:53→20:02)
[2016-09-01] MEDS: SODIUM CHLORIDE 0.9% FLUSH 10 ML FLUSH IV FLUSH SCH ×2 (08:54→19:57)
[2016-09-01] MEDS: DOCUSATE SODIUM 50 MG/SENNA 8.6 MG TAB PO SCH ×2 (08:55→19:58)
[2016-09-01] MEDS: GABAPENTIN 400 MG CAP PO SCH ×2 (08:56→19:59)
[2016-09-01] MEDS: POTASSIUM CHLORIDE 10 MEQ CONTROLLED RELEASE TAB PO SCH (08:56)
[2016-09-01] MEDS: HYDROXYCHLOROQUINE SULFATE 200 MG TAB PO SCH ×2 (08:57→19:59)
[2016-09-01] MEDS: amLODIPine BESYLATE 5 MG TAB PO SCH (08:57)
[2016-09-01] MEDS: BUMETANIDE 1 MG TAB PO SCH (08:57)
[2016-09-01] MEDS: INSULIN DETEMIR 100 UNITS/ML VIAL SQ SCH ×2 (08:58→20:00)
[2016-09-01] MEDS: INSULIN ASPART 1,000 UNITS/10 ML VIAL SQ SCH ×3 (09:12→17:09)
--- NOTE | 2016-09-01 13:27 | HHI.PR ---
Subjective Remarks 50 YO AA female with Lupus,YOJANA,COPD No Fever Weaned to 3 LNC Uses CPAP Had VATS done Chest tube to suction. Soreness in chest Objective Vital Signs Vital Signs Date Time Temp Pulse Resp B/P Pulse Ox O2 Delivery O2 Flow Rate FiO2 09/01/16 09:27 91 Nasal Cannula 3.00 09/01/16 07:50 Nasal Cannula Humidified 09/01/16 06:09 16 09/01/16 06:00 91 09/01/16 06:00 16 09/01/16 05:00 88 09/01/16 04:06 96 30 09/01/16 03:00 88 09/01/16 03:00 98 Nasal Cannula 3.00 09/01/16 03:00 98.0 88 12 115/76 98 09/01/16 02:00 70 09/01/16 01:08 96 30 09/01/16 01:00 82 09/01/16 00:00 88 08/31/16 23:15 97 30 08/31/16 23:00 89 08/31/16 23:00 98.2 100 16 120/75 93 08/31/16 23:00 93 Nasal Cannula 3.00 08/31/16 22:00 88 08/31/16 22:00 16 08/31/16 21:00 87 08/31/16 20:48 95 Nasal Cannula 4.00 08/31/16 20:00 87 08/31/16 19:00 98.2 87 16 112/71 94 08/31/16 19:00 94 Nasal Cannula 3.00 08/31/16 18:00 84 08/31/16 17:00 82 08/31/16 16:00 84 08/31/16 16:00 98 Nasal Cannula 4.00 08/31/16 16:00 98.6 86 25 101/68 98 08/31/16 15:00 90 08/31/16 14:00 23 08/31/16 14:00 76 I/O 08/31/16 08/31/16 08/31/16 09/01/16 09/01/16 09/01/16 07:00 15:00 23:00 07:00 15:00 23:00 Intake Total 1000 ml 1198 ml 1440 ml Output Total 1800 ml 150 ml 300 ml 1402 ml Balance -1800 ml 850 ml 898 ml 38 ml Intake Oral 480 ml 1440 ml IV Total 718 ml Other 1000 ml Output Urine Total 1800 ml 300 ml 1250 ml Chest Tube Drainage Total 76 ml Drainage Total 76 ml Estimated Blood Loss 150 ml # Bowel Movements 0 0 Result Diagram: 09/01/1651209/01/16512 Objective Remarks GENERAL: WBWN Female, NAD SKIN: Warm and dry. HEAD: Normocephalic. EYES: No scleral icterus. No injection or drainage. NECK: Supple, trachea midline. No JVD or lymphadenopathy. CARDIOVASCULAR: Regular rate and rhythm without murmurs, gallops, or rubs. RESPIRATORY: Breath sounds equal bilaterally. No accessory muscle use. GASTROINTESTINAL: Abdomen soft, non-tender, nondistended. MUSCULOSKELETAL: No cyanosis, or edema. BACK: Nontender without obvious deformity. No CVA tenderness. A/P Assessment and Plan Dysnoea and Hypoxia ILd, ? etiology Lupus COPD YOJANA DM CKD PLAN: IV Solumedrol Aerosol nebs cont Abx Monitor BS chest tube to suction pain controll Dez Millan MD Sep 01, 2016 13:27
[2016-09-01] MEDS: MORPHINE SULFATE 30 MG/30 ML PCA IV SCH (17:34)
[2016-09-01] MEDS: CEFEPIME INJ 2,000 MG in SODIUM CHLORIDE 0.9% INJ 100 ML IV SCH (18:27)
[2016-09-01] MEDS: MONTELUKAST SODIUM 10 MG TAB PO SCH (19:58)
[2016-09-01] MEDS: CALCIUM CARBONATE 1.25 GM (CA 500 MG) TAB PO SCH (19:58)
[2016-09-01] MEDS: DOCUSATE CALCIUM 240 MG CAP PO SCH (19:58)
[2016-09-01] MEDS: ZOLPIDEM TARTRATE 5 MG TAB PO PRN (19:58)
[2016-09-01] MEDS: PANTOPRAZOLE SOD 40 MG DELAYED RELEASE TAB PO SCH (19:59)
[2016-09-02] VITALS (24 sets, daily range): BP systolic 110–142; BP diastolic 59–85; PULSE 86–108; RESP 18–20; TEMP 97.7–99.2; O2SAT 90–98
[2016-09-02] MEDS: RESP: ALBUTEROL 2.5 MG/3 ML NEB (SCH) NEB ×4 (03:16→20:29)
[2016-09-02] MEDS: methylPREDNISolone SOD SUCC 40 MG/1 ML VIAL IV PUSH SCH ×2 (05:23→18:00)
[2016-09-02] MEDS: PCA - TOTAL MG MORPHINE DELIVERED PER SHIFT SCH ×3 (05:24→21:01)
[2016-09-02] MEDS: INSULIN ASPART SUPPLEMENTAL SCALE SQ SCH ×5 (05:25→23:39)
[2016-09-02 05:48] LABS: AUTOMATED NEUTROPHIL # 13.3 TH/MM3 (1.8-7.7); BASOPHIL % 0.2 % (0.0-2.0); HEMATOCRIT 32.6 % (35.0-46.0); LYMPH % 6.1 % (9.0-44.0); LYMPHOCYTE # 0.9 TH/MM3 (1.0-4.8); MEAN CELL VOLUME 85.1 FL (80.0-100.0); MEAN CORPUSCULAR HGB CONC 32.9 % (32.0-36.0); MONO % 7.1 % (0.0-8.0); NEUT % 86.6 % (16.0-70.0); PLATELET COUNT 229 TH/MM3 (150-450); RED BLOOD COUNT 3.84 MIL/MM3 (4.00-5.30); RED CELL DISTRIBUTION WIDTH 17.6 % (11.6-17.2); WHITE BLOOD COUNT 15.4 TH/MM3 (4.0-11.0)
[2016-09-02 05:51] LABS: HEMO FLAGS AUTO DIFF
[2016-09-02 06:10] LABS: BICARBONATE 26.4 MEQ/L (21.0-32.0); POTASSIUM 4.4 MEQ/L (3.5-5.1)
[2016-09-02 07:56] LABS: SCAN/DIFF AUTO DIFF CONFIRMED
[2016-09-02] MEDS: INSULIN ASPART 1,000 UNITS/10 ML VIAL SQ SCH ×3 (08:00→17:00)
--- NOTE | 2016-09-02 08:39 | PD.CAR.PN ---
CVT Progress Note Subjective/Hospital Course: 50 yo F, hx of pulmonary fibrosis and lupus, presenting with respiratory failure. Blood gas on admission: O2 saturation 90, pH 7.5, PCO2 42. ACS r/o reassuring. Patient is on 2-3 L NC at home. CT shows evidence of pulmonary fibrosis. - Cardiothoracic surgery has been consulted for lung biopsy 08/29 Patient preop for thoracoscopic lung biopsy today, but her blood sugar is out of control. Surgery cancelled secondary to hyperglycemia. 08/30 BGM still labile is tentatively scheduled for lung bx in am 09/01 Doing well s/p Lung biopsy Maintain CT Ambulate 09/02 Clinically stable c/o SOB CXR pending Likely D/C CT tomorrow Awaiting pathology Objective: Vital Signs Date Time Temp Pulse Resp B/P Pulse Ox O2 Delivery O2 Flow Rate FiO2 09/02/16 07:40 95 30 09/02/16 06:00 95 09/02/16 05:24 18 09/02/16 05:00 97 09/02/16 04:00 99 09/02/16 04:00 98.0 99 18 137/79 93 09/02/16 03:19 93 30 09/02/16 03:00 97 09/02/16 02:00 96 09/02/16 01:00 94 09/02/16 00:11 95 30 09/02/16 00:00 98.4 98 18 110/59 96 09/02/16 00:00 98 09/01/16 23:00 94 09/01/16 22:00 95 09/01/16 22:00 20 09/01/16 21:36 93 Nasal Cannula 5.00 09/01/16 21:00 94 09/01/16 20:00 97 09/01/16 20:00 Nasal Cannula 5.00 Humidified 09/01/16 20:00 98.1 97 20 112/69 97 09/01/16 18:30 Bi-Pap 09/01/16 18:00 100 09/01/16 17:34 22 09/01/16 17:30 97 09/01/16 17:00 104 09/01/16 16:10 Bi-Pap 09/01/16 16:00 104 09/01/16 16:00 98.6 104 116/72 92 09/01/16 15:00 98 09/01/16 14:35 Nasal Cannula 3.00 Humidified 09/01/16 14:00 18 09/01/16 14:00 102 09/01/16 13:00 98 09/01/16 12:15 Nasal Cannula 3.00 Humidified 09/01/16 12:00 99 09/01/16 12:00 88 124/68 88 09/01/16 11:00 96 09/01/16 10:40 Nasal Cannula 3.00 Humidified 09/01/16 10:00 100 09/01/16 09:27 91 Nasal Cannula 3.00 09/01/16 09:00 88 Labs: Laboratory Tests Test 09/02/16 05:13 White Blood Count 15.4 TH/MM3 (4.0-11.0) Red Blood Count 3.84 MIL/MM3 (4.00-5.30) Hemoglobin 10.7 GM/DL (11.6-15.3) Hematocrit 32.6 % (35.0-46.0) Mean Corpuscular Volume 85.1 FL (80.0-100.0) Mean Corpuscular Hemoglobin 28.0 PG (27.0-34.0) Mean Corpuscular Hemoglobin 32.9 % Concent (32.0-36.0) Red Cell Distribution Width 17.6 % (11.6-17.2) Platelet Count 229 TH/MM3 (150-450) Mean Platelet Volume 8.3 FL (7.0-11.0) Neutrophils (%) (Auto) 86.6 % (16.0-70.0) Lymphocytes (%) (Auto) 6.1 % (9.0-44.0) Monocytes (%) (Auto) 7.1 % (0.0-8.0) Eosinophils (%) (Auto) 0.0 % (0.0-4.0) Basophils (%) (Auto) 0.2 % (0.0-2.0) Neutrophils # (Auto) 13.3 TH/MM3 (1.8-7.7) Lymphocytes # (Auto) 0.9 TH/MM3 (1.0-4.8) Monocytes # (Auto) 1.1 TH/MM3 (0-0.9) Eosinophils # (Auto) 0.0 TH/MM3 (0-0.4) Basophils # (Auto) 0.0 TH/MM3 (0-0.2) CBC Comment AUTO DIFF Differential Comment AUTO DIFF CONFIRMED Sodium Level 135 MEQ/L (136-145) Potassium Level 4.4 MEQ/L (3.5-5.1) Chloride Level 100 MEQ/L (98-107) Carbon Dioxide Level 26.4 MEQ/L (21.0-32.0) Anion Gap 9 MEQ/L (5-15) Blood Urea Nitrogen 45 MG/DL (7-18) Creatinine 1.40 MG/DL (0.50-1.00) Estimat Glomerular Filtration 48 ML/MIN (>89) Rate Random Glucose 228 MG/DL (74-106) Calcium Level 8.8 MG/DL (8.5-10.1) Result Diagram: 09/02/16 0513 09/02/16 0513 Kay Salter MD Sep 02, 2016 08:39
[2016-09-02] MEDS: INSULIN DETEMIR 100 UNITS/ML VIAL SQ SCH ×2 (09:00→21:00)
[2016-09-02] MEDS: BUDESONIDE-FORMOTEROL 160/4.5 MCG INHALER INH SCH ×2 (09:00→21:01)
[2016-09-02] MEDS: SODIUM CHLORIDE 0.9% FLUSH 10 ML FLUSH IV FLUSH SCH ×2 (09:00→21:00)
[2016-09-02] MEDS: GABAPENTIN 400 MG CAP PO SCH ×2 (09:03→21:00)
[2016-09-02] MEDS: HYDROXYCHLOROQUINE SULFATE 200 MG TAB PO SCH ×2 (09:03→21:00)
[2016-09-02] MEDS: POTASSIUM CHLORIDE 10 MEQ CONTROLLED RELEASE TAB PO SCH (09:03)
[2016-09-02] MEDS: DOCUSATE SODIUM 50 MG/SENNA 8.6 MG TAB PO SCH ×2 (09:03→21:00)
[2016-09-02] MEDS: amLODIPine BESYLATE 5 MG TAB PO SCH (09:04)
[2016-09-02] MEDS: BUMETANIDE 1 MG TAB PO SCH (09:04)
[2016-09-02] MEDS: ACETAMINOPHEN/CODEINE 300 MG/30 MG TAB PO PRN ×3 (09:09→22:16)
--- NOTE | 2016-09-02 09:23 | HHI.FPPN ---
Subjective Remarks No acute events overnight. Vital signs have remained stable on 4 L nasal canula and BiPAP at night (CPAP at home.) She continues to have serosanguineous output form chest tube. No fevers. Blood sugars have been well controlled. Has not had BM in 3 days. (Deep Sauceda MD R3) Objective Vitals Vital Signs Date Time Temp Pulse Resp B/P Pulse Ox O2 Delivery O2 Flow Rate FiO2 09/02/16 07:40 95 30 09/02/16 06:00 95 09/02/16 05:24 18 09/02/16 05:00 97 09/02/16 04:00 99 09/02/16 04:00 98.0 99 18 137/79 93 09/02/16 03:19 93 30 09/02/16 03:00 97 09/02/16 02:00 96 09/02/16 01:00 94 09/02/16 00:11 95 30 09/02/16 00:00 98.4 98 18 110/59 96 09/02/16 00:00 98 09/01/16 23:00 94 09/01/16 22:00 95 09/01/16 22:00 20 09/01/16 21:36 93 Nasal Cannula 5.00 09/01/16 21:00 94 09/01/16 20:00 97 09/01/16 20:00 Nasal Cannula 5.00 Humidified 09/01/16 20:00 98.1 97 20 112/69 97 09/01/16 18:30 Bi-Pap 09/01/16 18:00 100 09/01/16 17:34 22 09/01/16 17:30 97 09/01/16 17:00 104 09/01/16 16:10 Bi-Pap 09/01/16 16:00 104 09/01/16 16:00 98.6 104 116/72 92 09/01/16 15:00 98 09/01/16 14:35 Nasal Cannula 3.00 Humidified 09/01/16 14:00 18 09/01/16 14:00 102 09/01/16 13:00 98 09/01/16 12:15 Nasal Cannula 3.00 Humidified 09/01/16 12:00 99 09/01/16 12:00 88 124/68 88 09/01/16 11:00 96 09/01/16 10:40 Nasal Cannula 3.00 Humidified 09/01/16 10:00 100 09/01/16 09:27 91 Nasal Cannula 3.00 I/O 09/01/16 09/01/16 09/01/16 09/02/16 09/02/16 09/02/16 07:00 15:00 23:00 07:00 15:00 23:00 Intake Total 1440 ml 460 ml 800 ml Output Total 1402 ml 10 ml 900 ml Balance 38 ml 450 ml -100 ml Intake Oral 1440 ml 480 ml IV Total 460 ml 320 ml Output Urine Total 1250 ml 900 ml Chest Tube Drainage Total 76 ml Drainage Total 76 ml 10 ml # Bowel Movements 0 0 (Deep Sauceda MD R3) Result Diagram: 09/02/1651209/02/16512 Objective Remarks GENERAL: Laying in bed on 4L nasal cannula SKIN: No rashes, ecchymoses. Two CDI bandages on left back. EYES: Extraocular motions intact. NECK: Trachea midline. No lymphadenopathy. CARDIOVASCULAR: Regular rate and rhythm without murmurs, gallops, or rubs. trace LE edema to level of horner. RESPIRATORY: Dry crackles diffusely bilaterally. Chest tube in left side draining serosanguineous fluid with good output GASTROINTESTINAL: Abdomen soft, non-tender, obese. MUSCULOSKELETAL: No calf tenderness. NEUROLOGICAL: Awake and alert. Cranial nerves II through XII intact. Motor and sensory grossly within normal limits. Normal speech. (Deep Sauceda MD R3) A/P Assessment and Plan 50 yo F, hx of pulmonary fibrosis and lupus, presenting with respiratory failure. Discharge Planning Pending removal of chest tube and clearance by pulmonology. Anticipate discharge to home in 1-2 days. (Deep Sauceda MD R3) Attending Attestation Patient seen and examined. Case reviewed and discussed with the resident team. Agree with plan of care as discussed with me and documented in the resident note. agree with seeing Rheum right after she leaves hospital. Dr Larsen is out of town but his nurse Anne received the dozen pages faxed from the hospital and they will be adding a stronger agent for better control of her autoimmune disease as an outpt. (Noreen Rodríguez MD) Problem List: (1) Pulmonary fibrosis Status: Acute Plan: Patient with hx of lupus, admitted for respiratory failure. Blood gas on admission: O2 saturation 90, pH 7.5, PCO2 42. ACS r/o reassuring. Patient is on 2-3 L NC at home. CT shows evidence of pulmonary fibrosis. Now s/p left lung biopsy via thoracotomy following attempted thorascopic approach 08/31. - Pulmonology following, appreciate recommendations - Cardiothoracic surgery following - left sided chest tube (08/31) with generous output - Repeat CXR 09/01 unchanged - Biopsy pending - RADIO BOARD OPERATOR ANNOUNCER for discomfort - Galina-Colace to 2 tab BID --> Miralax once now, encourage nursing staff to administer PRN constipation medications - Leukocytosis of 20 following surgery, likely due to stress reaction and steroid use, patient's vitals and exam otherwise reassuring. Will continue to monitor. - Continue Cefepime 2 g IV q24 - renal dosing, started 08/24 - Continue Azithromycin, started 08/24 - Duonebs q4hrs, with albuterol PRN - Solumedrol 40 mg IV q12h, consider decreasing if respiratory status improves - -> plan for 20-40mg prednisone PO at time of discharge - Continue Symbicort - Singulair 10 mg at night - Acapella and respiratory spirometer - Follow up PFT's (2) Diabetes mellitus Status: Chronic Plan: Home medications: Levemir 40 units BID, Novolog 30 units TIDAC. Hemoglobin A1c 9.5 from 05/02/16. Serum glucose 44 on presentation to emergency department, therefore insulin was held. Since that time, glucose has been labile in the 300-500s range. Exacerbated by steroid treatments. Recent blood glucose levels 125-200. -Continue Levemir to home dose of 40 units BID -Continue NovoLog to 25 units TIDAC -Continue medium-dose sliding scale -Will monitor very closely as patient tapers down on steroids (3) Lupus Status: Acute Plan: Pt on Plaquenil 200mg BID and prednisone 10mg at home. * Continue home Plaquenil * Dr. 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 * Increase home steroids to 20-40mg until follow up with Rheum as outpatient (4) Acute renal failure Status: Acute Plan: Patient with acute on chronic renal failure. GFR on admission 15, down from baseline of 40s. Likely due to decreased perfusion secondary to sepsis, now resolving. Cr 3.23 on admission -> 1.40. Patient had CT-guided needle biopsy of right kidney on 08/01/15. Pathology report diagnosed as: Diffuse and nodular diabetic glomerulosclerosis. Global and segmental glomerulosclerosis. Interstitial fibrosis and tubular atrophy, severe. Arteriosclerosis, severe. - Nephrology on board - Avoid nephrotoxic agents - Renally dose medications - Calcitriol for secondary hyperparathyroidism (5) FEN/PPX Status: Acute Plan: PO fluids Nutrition: 1800 ADA DVT PPX: Heparin GI PPX: Protonix (on steroid treatment) Electrolytes: Monitor (Deep Sauceda MD R3) Problem Qualifiers (1) Diabetes mellitus: Qualified Code: E11.9 - Type 2 diabetes mellitus without complication, with long-term current use of insulin Deep Sauceda MD R3 Sep 02, 2016 09:23 Noreen Rodríguez MD Sep 02, 2016 12:13
[2016-09-02] MEDS ORDERED: POLYETHYLENE GLYCOL 17 GM PKG PO ONE (10:30)
--- NOTE | 2016-09-02 14:21 | HHI.PR ---
Subjective Remarks 50 YO AA female with Lupus,YOJANA,COPD No Fever Weaned to 3 LNC Uses CPAP Had VATS done Chest tube to suction. Soreness in chest had sob last night, better now Objective Vital Signs Vital Signs Date Time Temp Pulse Resp B/P Pulse Ox O2 Delivery O2 Flow Rate FiO2 09/02/16 12:00 91 Nasal Cannula 4.00 Humidified 09/02/16 12:00 99.2 105 18 128/73 91 09/02/16 11:54 20 09/02/16 11:00 98 09/02/16 10:00 92 09/02/16 09:21 98 Nasal Cannula 5.00 09/02/16 09:00 108 09/02/16 08:00 86 09/02/16 08:00 Nasal Cannula 3.00 Humidified 09/02/16 08:00 97.7 95 18 142/80 91 09/02/16 07:40 95 30 09/02/16 07:00 87 09/02/16 06:00 95 09/02/16 05:24 18 09/02/16 05:00 97 09/02/16 04:00 99 09/02/16 04:00 98.0 99 18 137/79 93 09/02/16 03:19 93 30 09/02/16 03:00 97 09/02/16 02:00 96 09/02/16 01:00 94 09/02/16 00:11 95 30 09/02/16 00:00 98.4 98 18 110/59 96 09/02/16 00:00 98 09/01/16 23:00 94 09/01/16 22:00 95 09/01/16 22:00 20 09/01/16 21:36 93 Nasal Cannula 5.00 09/01/16 21:00 94 09/01/16 20:00 97 09/01/16 20:00 Nasal Cannula 5.00 Humidified 09/01/16 20:00 98.1 97 20 112/69 97 09/01/16 18:30 Bi-Pap 09/01/16 18:00 100 09/01/16 17:34 22 09/01/16 17:30 97 09/01/16 17:00 104 09/01/16 16:10 Bi-Pap 09/01/16 16:00 104 09/01/16 16:00 98.6 104 116/72 92 09/01/16 15:00 98 09/01/16 14:35 Nasal Cannula 3.00 Humidified I/O 09/01/16 09/01/16 09/01/16 09/02/16 09/02/16 09/02/16 07:00 15:00 23:00 07:00 15:00 23:00 Intake Total 1440 ml 460 ml 800 ml Output Total 1402 ml 10 ml 900 ml Balance 38 ml 450 ml -100 ml Intake Oral 1440 ml 480 ml IV Total 460 ml 320 ml Output Urine Total 1250 ml 900 ml Chest Tube Drainage Total 76 ml Drainage Total 76 ml 10 ml # Bowel Movements 0 0 Result Diagram: 09/02/16 0513 09/02/16512 Objective Remarks GENERAL: WBWN Female, NAD SKIN: Warm and dry. HEAD: Normocephalic. EYES: No scleral icterus. No injection or drainage. NECK: Supple, trachea midline. No JVD or lymphadenopathy. CARDIOVASCULAR: Regular rate and rhythm without murmurs, gallops, or rubs. RESPIRATORY: Breath sounds equal bilaterally. No accessory muscle use. GASTROINTESTINAL: Abdomen soft, non-tender, nondistended. MUSCULOSKELETAL: No cyanosis, or edema. BACK: Nontender without obvious deformity. No CVA tenderness. A/P Assessment and Plan Dysnoea and Hypoxia ILd, ? etiology Lupus COPD YOJANA DM CKD PLAN: IV Solumedrol Aerosol nebs cont Abx Monitor BS chest tube to suction pain controll Check lung bx. Dez Millan MD Sep 02, 2016 14:21
[2016-09-02] MEDS: MORPHINE SULFATE 30 MG/30 ML PCA IV SCH (15:03)
[2016-09-02] MEDS: CEFEPIME INJ 2,000 MG in SODIUM CHLORIDE 0.9% INJ 100 ML IV SCH (20:59)
[2016-09-02] MEDS: ZOLPIDEM TARTRATE 5 MG TAB PO PRN (21:00)
[2016-09-02] MEDS: DOCUSATE CALCIUM 240 MG CAP PO SCH (21:00)
[2016-09-02] MEDS: CALCIUM CARBONATE 1.25 GM (CA 500 MG) TAB PO SCH (21:00)
[2016-09-02] MEDS: PANTOPRAZOLE SOD 40 MG DELAYED RELEASE TAB PO SCH (21:00)
[2016-09-02] MEDS: MONTELUKAST SODIUM 10 MG TAB PO SCH (21:00)
[2016-09-03] VITALS (26 sets, daily range): BP systolic 111–144; BP diastolic 62–98; PULSE 71–108; RESP 16–19; TEMP 97.9–98.4; O2SAT 92–100
[2016-09-03] MEDS: RESP: ALBUTEROL 2.5 MG/3 ML NEB (SCH) NEB ×2 (03:10→08:04)
[2016-09-03] MEDS: methylPREDNISolone SOD SUCC 40 MG/1 ML VIAL IV PUSH SCH (05:17)
[2016-09-03] MEDS: PCA - TOTAL MG MORPHINE DELIVERED PER SHIFT SCH ×3 (05:17→22:00)
[2016-09-03] MEDS: INSULIN ASPART SUPPLEMENTAL SCALE SQ SCH ×3 (05:19→20:31)
[2016-09-03] MEDS: ACETAMINOPHEN/CODEINE 300 MG/30 MG TAB PO PRN ×3 (05:32→20:29)
[2016-09-03] MEDS: INSULIN DETEMIR 100 UNITS/ML VIAL SQ SCH ×2 (08:49→20:30)
[2016-09-03] MEDS: INSULIN ASPART 1,000 UNITS/10 ML VIAL SQ SCH ×3 (08:49→16:05)
[2016-09-03] MEDS: amLODIPine BESYLATE 5 MG TAB PO SCH (08:50)
[2016-09-03] MEDS: DOCUSATE SODIUM 50 MG/SENNA 8.6 MG TAB PO SCH ×2 (08:50→20:29)
[2016-09-03] MEDS: GABAPENTIN 400 MG CAP PO SCH ×2 (08:50→20:29)
[2016-09-03] MEDS: HYDROXYCHLOROQUINE SULFATE 200 MG TAB PO SCH ×2 (08:50→20:29)
[2016-09-03] MEDS: BUMETANIDE 1 MG TAB PO SCH (08:50)
[2016-09-03] MEDS: POTASSIUM CHLORIDE 10 MEQ CONTROLLED RELEASE TAB PO SCH (08:51)
[2016-09-03] MEDS: BUDESONIDE-FORMOTEROL 160/4.5 MCG INHALER INH SCH ×2 (08:51→20:28)
[2016-09-03] MEDS: SODIUM CHLORIDE 0.9% FLUSH 10 ML FLUSH IV FLUSH SCH ×2 (08:52→21:00)
--- NOTE | 2016-09-03 09:16 | HHI.FPPN ---
Subjective Remarks Mrs. See is comfortable today. Her breathing is at her baseline. Her pain is well controlled on CONTROL BOARD OPERATOR pump. She denies fevers or chills. She has not had a BM in 3 days. She is able to get up to use the bedside commode. (Dao Engle MD R2) Objective Vitals Vital Signs Date Time Temp Pulse Resp B/P Pulse Ox O2 Delivery O2 Flow Rate FiO2 09/03/16 08:04 96 Nasal Cannula 4.00 09/03/16 06:00 91 09/03/16 05:17 18 09/03/16 05:00 92 09/03/16 04:00 98.1 85 18 122/73 97 09/03/16 04:00 Nasal Cannula 4.00 Humidified 09/03/16 04:00 85 09/03/16 03:11 93 30 09/03/16 03:00 89 09/03/16 02:00 90 09/03/16 01:00 94 09/03/16 00:00 98.4 92 18 121/70 93 09/03/16 00:00 92 09/03/16 00:00 Nasal Cannula 4.00 Humidified 09/02/16 23:36 95 30 09/02/16 23:00 95 09/02/16 22:00 95 09/02/16 21:01 20 09/02/16 21:00 97 09/02/16 20:31 93 Nasal Cannula 5.00 09/02/16 20:00 98.1 99 20 126/85 93 09/02/16 20:00 99 09/02/16 20:00 Nasal Cannula 4.00 Humidified 09/02/16 17:18 18 09/02/16 16:00 91 Nasal Cannula 4.00 Humidified 09/02/16 16:00 98.3 101 18 125/79 90 09/02/16 15:21 18 09/02/16 15:03 18 09/02/16 14:00 18 09/02/16 12:00 91 Nasal Cannula 4.00 Humidified 09/02/16 12:00 99.2 105 18 128/73 91 09/02/16 11:00 98 09/02/16 10:00 92 09/02/16 09:21 98 Nasal Cannula 5.00 I/O 09/02/16 09/02/16 09/02/16 09/03/16 09/03/16/5/17 07:00 15:00 23:00 07:00 15:00 23:00 Intake Total 800 ml 1260 ml 900 ml Output Total 1050 ml 140 ml 1600 ml Balance -250 ml 1120 ml -700 ml Intake Oral 480 ml 960 ml 480 ml IV Total 320 ml 300 ml 420 ml Output Urine Total 900 ml 1600 ml Chest Tube Drainage Total 150 ml 140 ml Drainage Total 0 ml # Voids 4 # Bowel Movements 0 0 (Dao Engle MD R2) Result Diagram: 09/02/1651209/02/16512 Objective Remarks GENERAL: Laying in bed on 4L nasal cannula SKIN: No rashes, ecchymoses. Two CDI bandages on left back. EYES: Extraocular motions intact. NECK: Trachea midline. No lymphadenopathy. CARDIOVASCULAR: Regular rate and rhythm without murmurs, gallops, or rubs. trace LE edema to level of horner. RESPIRATORY: Dry crackles diffusely bilaterally. Chest tube in left side draining serosanguineous fluid with good output GASTROINTESTINAL: Abdomen soft, non-tender, obese. MUSCULOSKELETAL: No calf tenderness. NEUROLOGICAL: Awake and alert. Cranial nerves II through XII intact. Motor and sensory grossly within normal limits. Normal speech. (Dao Engle MD R2) A/P Assessment and Plan 50 yo F, hx of pulmonary fibrosis and lupus, presenting with respiratory failure. Discharge Planning Pending removal of chest tube and clearance by pulmonology. Anticipate discharge to home in 1-2 days. (Dao Engle MD R2) Attending Attestation Patient seen and examined. Case reviewed and discussed. Agree with plan of care as discussed with me and documented in the resident note. (Chely Pitts MD) Problem List: (1) Pulmonary fibrosis Status: Acute Plan: Patient with hx of lupus, admitted for respiratory failure. Blood gas on admission: O2 saturation 90, pH 7.5, PCO2 42. ACS r/o reassuring. Patient is on 2-3 L NC at home. CT shows evidence of pulmonary fibrosis. Now s/p left lung biopsy via thoracotomy following attempted thorascopic approach 08/31. - Pulmonology following, appreciate recommendations - Cardiothoracic surgery following - left sided chest tube (08/31) with generous output (300 ml total) - Repeat CXR 09/01 unchanged - Biopsy pending - CONTROL BOARD OPERATOR for discomfort - Galina-Colace to 2 tab BID --> Miralax once now, encourage nursing staff to administer PRN constipation medications - Leukocytosis of 20 following surgery, likely due to stress reaction and steroid use, patient's vitals and exam otherwise reassuring. Will continue to monitor. - Transition from Cefepime 2 g IV q24 (started 08/24), to Levaquin 750 PO daily x 2 days. - Duonebs q4hrs, with albuterol PRN - Solumedrol 40 mg IV q12h, decrease to 60 mg PO prednisone daily. - Continue Symbicort - Singulair 10 mg at night - Acapella and respiratory spirometer - Follow up PFT's (2) Diabetes mellitus Status: Chronic Plan: Home medications: Levemir 40 units BID, Novolog 30 units TIDAC. Hemoglobin A1c 9.5 from 05/02/16. Serum glucose 44 on presentation to emergency department, therefore insulin was held. Since that time, glucose has been labile. On 09/02 at 1600 hrs her BG was 54 --> 75 --> 75. AM today 09/03 was 228 after holding HS Levemir. - Continue with 40 units Levemir BID. - Decrease NovoLog to 20 units (from 25 untis) TIDAC - Switch from medium-dose sliding scale to low-dose ISS. - Will monitor very closely as patient tapers down on steroids. (3) Lupus Status: Acute Plan: Pt on Plaquenil 200 mg BID and prednisone 10mg at home. * Continue home Plaquenil * Dr. Rodríguez has reached out to patient's Enterer --> patient could likely benefit greatly from a biologic. * Continue steroid taper while in hospital. (4) Acute renal failure Status: Acute Plan: Patient with acute on chronic renal failure. GFR on admission 15, down from baseline of 40s. Likely due to decreased perfusion secondary to sepsis, now resolving. Cr 3.23 on admission -> 1.40. Patient had CT-guided needle biopsy of right kidney on 08/01/15. Pathology report diagnosed as: Diffuse and nodular diabetic glomerulosclerosis. Global and segmental glomerulosclerosis. Interstitial fibrosis and tubular atrophy, severe. Arteriosclerosis, severe. - Nephrology on board - Avoid nephrotoxic agents - Renally dose medications - Calcitriol for secondary hyperparathyroidism (5) FEN/PPX Status: Acute Plan: PO fluids Nutrition: 1800 ADA DVT PPX: Heparin GI PPX: Protonix (on steroid treatment) Electrolytes: Monitor DW Dr. Pitts. (Dao Engle MD R2) Problem Qualifiers (1) Diabetes mellitus: Qualified Code: E11.9 - Type 2 diabetes mellitus without complication, with long-term current use of insulin Dao Engle MD R2 Sep 03, 2016 09:16 Chely Pitts MD Sep 04, 2016 15:57
[2016-09-03] MEDS: MORPHINE SULFATE 30 MG/30 ML PCA IV SCH (10:49)
--- NOTE | 2016-09-03 11:09 | PD.CAR.PN ---
CVT Progress Note Subjective/Hospital Course: 50 yo F, hx of pulmonary fibrosis and lupus, presenting with respiratory failure. Blood gas on admission: O2 saturation 90, pH 7.5, PCO2 42. ACS r/o reassuring. Patient is on 2-3 L NC at home. CT shows evidence of pulmonary fibrosis. - Cardiothoracic surgery has been consulted for lung biopsy 08/29 Patient preop for thoracoscopic lung biopsy today, but her blood sugar is out of control. Surgery cancelled secondary to hyperglycemia. 08/30 BGM still labile is tentatively scheduled for lung bx in am 09/01 Doing well s/p Lung biopsy Maintain CT Ambulate 09/02 Clinically stable c/o SOB CXR pending Likely D/C CT tomorrow Awaiting pathology 09/03 will dc chest tube today await path on nasal cannula Objective: GENERAL: SKIN: Warm and dry.incision intact and well approximated to right posterior chest wall HEAD: Normocephalic. EYES: No scleral icterus. No injection or drainage. NECK: Supple, trachea midline. No JVD or lymphadenopathy. CARDIOVASCULAR: Regular rate and rhythm without murmurs, gallops, or rubs. RESPIRATORY: Breath sounds equal bilaterally. No accessory muscle use. chest tube in place , no air leak GASTROINTESTINAL: Abdomen soft, non-tender, nondistended. MUSCULOSKELETAL: No cyanosis, or edema. BACK: Nontender without obvious deformity. No CVA tenderness. Vital Signs Date Time Temp Pulse Resp B/P Pulse Ox O2 Delivery O2 Flow Rate FiO2 09/03/16 10:49 16 09/03/16 08:04 96 Nasal Cannula 4.00 09/03/16 08:00 97 09/03/16 08:00 98.2 100 19 114/75 92 09/03/16 08:00 Nasal Cannula 4.00 Humidified 09/03/16 06:00 91 09/03/16 05:17 18 09/03/16 05:00 92 09/03/16 04:00 98.1 85 18 122/73 97 09/03/16 04:00 Nasal Cannula 4.00 Humidified 09/03/16 04:00 85 09/03/16 03:11 93 30 09/03/16 03:00 89 09/03/16 02:00 90 09/03/16 01:00 94 09/03/16 00:00 98.4 92 18 121/70 93 09/03/16 00:00 92 09/03/16 00:00 Nasal Cannula 4.00 Humidified 09/02/16 23:36 95 30 09/02/16 23:00 95 09/02/16 22:00 95 09/02/16 21:01 20 09/02/16 21:00 97 09/02/16 20:31 93 Nasal Cannula 5.00 09/02/16 20:00 98.1 99 20 126/85 93 09/02/16 20:00 99 09/02/16 20:00 Nasal Cannula 4.00 Humidified 09/02/16 17:18 18 09/02/16 16:00 91 Nasal Cannula 4.00 Humidified 09/02/16 16:00 98.3 101 18 125/79 90 09/02/16 15:21 18 09/02/16 15:03 18 09/02/16 14:00 18 09/02/16 12:00 91 Nasal Cannula 4.00 Humidified 09/02/16 12:00 99.2 105 18 128/73 91 Result Diagram: 09/02/1651209/02/16512 Telemetry: NSR (1) Lupus (2) Acute exacerbation of chronic obstructive pulmonary disease (3) Interstitial lung disease (4) s/p lung bx Plan: await path nebamira / ed will dc chest tube today Sara Moser Sep 03, 2016 11:09
[2016-09-03] MEDS ORDERED: DEXTROSE 50% IN WATER 50 ML VIAL(D50) IV PRN (11:15)
[2016-09-03] MEDS ORDERED: GLUCAGON 1 MG/ML VIAL OTHER PRN (11:15)
[2016-09-03] MEDS: CALCITRIOL 0.25 MCG CAP PO SCH (11:44)
--- NOTE | 2016-09-03 14:10 | RSPPFT ---
DATE OF PROCEDURE: 08/28/16 COMMENTS: Spirometry shows FVC of 1.3 at 42% of predicted, FEV1 of 1.1 at 45%, FEV1/FVC ratio is normal. Flow is decreased at FEF 25-75. There is a paradoxical response to bronchodilator treatment. IMPRESSION: 1. Mild small airways obstructive lung disease. 2. Additional restrictive lung disease with paradoxical response to bronchodilator treatment.
[2016-09-03] MEDS ORDERED: ONDANSETRON ODT 4 MG TAB PO PRN (16:45)
--- NOTE | 2016-09-03 18:22 | HHI.PR ---
Subjective Remarks 50 YO AA female with Lupus,YOJANA,COPD No Fever Weaned to 3 LNC Uses CPAP Had VATS done Chest tube removed Objective Vital Signs Vital Signs Date Time Temp Pulse Resp B/P Pulse Ox O2 Delivery O2 Flow Rate FiO2 09/03/16 18:00 108 09/03/16 17:00 94 09/03/16 16:00 97 09/03/16 16:00 Nasal Cannula 4.00 30 09/03/16 16:00 98.2 97 16 126/91 97 09/03/16 15:00 106 09/03/16 14:00 90 09/03/16 13:00 94 09/03/16 12:51 16 09/03/16 12:00 Nasal Cannula 4.00 09/03/16 12:00 95 09/03/16 12:00 98.1 94 16 126/98 97 09/03/16 11:00 88 09/03/16 10:49 16 09/03/16 10:00 90 09/03/16 09:00 88 09/03/16 08:04 96 Nasal Cannula 4.00 09/03/16 08:00 97 09/03/16 08:00 98.2 100 19 114/75 92 09/03/16 08:00 Nasal Cannula 4.00 Humidified 09/03/16 07:00 84 09/03/16 06:00 91 09/03/16 05:17 18 09/03/16 05:00 92 09/03/16 04:00 98.1 85 18 122/73 97 09/03/16 04:00 Nasal Cannula 4.00 Humidified 09/03/16 04:00 85 09/03/16 03:11 93 30 09/03/16 03:00 89 09/03/16 02:00 90 09/03/16 01:00 94 09/03/16 00:00 98.4 92 18 121/70 93 09/03/16 00:00 92 09/03/16 00:00 Nasal Cannula 4.00 Humidified 09/02/16 23:36 95 30 09/02/16 23:00 95 09/02/16 22:00 95 09/02/16 21:01 20 09/02/16 21:00 97 09/02/16 20:31 93 Nasal Cannula 5.00 09/02/16 20:00 98.1 99 20 126/85 93 09/02/16 20:00 99 09/02/16 20:00 Nasal Cannula 4.00 Humidified I/O 09/02/16 09/02/16 09/02/16 09/03/16 09/03/16 09/03/16 07:00 15:00 23:00 07:00 15:00 23:00 Intake Total 800 ml 1260 ml 900 ml 1382 ml Output Total 1050 ml 140 ml 1600 ml 575 ml Balance -250 ml 1120 ml -700 ml 807 ml Intake Oral 480 ml 960 ml 480 ml 780 ml IV Total 320 ml 300 ml 420 ml 602 ml Output Urine Total 900 ml 1600 ml 575 ml Chest Tube Drainage Total 150 ml 140 ml Drainage Total 0 ml # Voids 4 # Bowel Movements 0 0 1 Result Diagram: 09/02/1651209/02/16512 Objective Remarks GENERAL: WBWN Female, NAD SKIN: Warm and dry. HEAD: Normocephalic. EYES: No scleral icterus. No injection or drainage. NECK: Supple, trachea midline. No JVD or lymphadenopathy. CARDIOVASCULAR: Regular rate and rhythm without murmurs, gallops, or rubs. RESPIRATORY: Breath sounds equal bilaterally. No accessory muscle use. GASTROINTESTINAL: Abdomen soft, non-tender, nondistended. MUSCULOSKELETAL: No cyanosis, or edema. BACK: Nontender without obvious deformity. No CVA tenderness. A/P Assessment and Plan Dysnoea and Hypoxia ILd, ? etiology Lupus COPD YOJANA DM CKD PLAN: IV Solumedrol Aerosol nebs cont Abx Monitor BS pain controll Check lung bx. CPAP at night Dez Millan MD Sep 03, 2016 18:22
[2016-09-03] MEDS: CALCIUM CARBONATE 1.25 GM (CA 500 MG) TAB PO SCH (20:28)
[2016-09-03] MEDS: predniSONE 20 MG TAB PO SCH (20:28)
[2016-09-03] MEDS: MONTELUKAST SODIUM 10 MG TAB PO SCH (20:29)
[2016-09-03] MEDS ORDERED: INSULIN DETEMIR 100 UNITS/ML VIAL SQ SCH (21:00)
[2016-09-04] VITALS (18 sets, daily range): BP systolic 119–132; BP diastolic 75–88; PULSE 80–112; RESP 16–18; TEMP 97.8–98.2; O2SAT 92–99
[2016-09-04] MEDS: RESP: ALBUTEROL CONC 2.5 MG/0.5 ML NEB NEB PRN (00:25)
[2016-09-04] MEDS: PCA - TOTAL MG MORPHINE DELIVERED PER SHIFT SCH ×2 (06:00→12:39)
[2016-09-04] MEDS: INSULIN ASPART SUPPLEMENTAL SCALE SQ SCH ×4 (06:05→21:00)
--- NOTE | 2016-09-04 06:21 | RADRPT ---
EXAM DATE/TIME: 09/04/2016 04:39 [facility] COMPARISON: CHEST SINGLE AP, September 01, 2016, 3:32. INDICATIONS : Shortness of breath. MEDICAL HISTORY : Hypertension. Chronic obstructive pulmonary disease. Diabetes mellitus type SURGICAL HISTORY : None. ENCOUNTER: Subsequent ACUITY: 1 week PAIN SCORE: 0/10 LOCATION: Bilateral chest FINDINGS: A single view of the chest demonstrates the left-sided chest tube has been removed. Mild persistent c onsolidation left lower lobe. Right lung is relatively clear.. The cardiomediastinal contours are un remarkable. Osseous structures are intact. CONCLUSION: Persistent infiltrate left lung base the with removal of the chest tube. No visible pneumothorax is s mackenzien Erick Mack MD on September 04, 2016 at 6:19 Board Certified Radiologist. This report was verified electronically.
[2016-09-04] MEDS ORDERED: MORPHINE SULFATE 4 MG/ML INJ IV PUSH PRN (08:30)
[2016-09-04] MEDS ORDERED: oxyCODONE/ACETAMINOPHEN 10 MG/325 MG TAB PO PRN (08:30)
[2016-09-04] MEDS ORDERED: HYDROmorphone HCL 2 MG TAB PO PRN (08:30)
[2016-09-04] MEDS: BUDESONIDE-FORMOTEROL 160/4.5 MCG INHALER INH SCH ×2 (08:43→21:00)
[2016-09-04] MEDS: ACETAMINOPHEN/CODEINE 300 MG/30 MG TAB PO PRN ×3 (08:44→23:45)
[2016-09-04] MEDS: HYDROXYCHLOROQUINE SULFATE 200 MG TAB PO SCH ×2 (08:44→21:23)
[2016-09-04] MEDS: BUMETANIDE 1 MG TAB PO SCH (08:44)
[2016-09-04] MEDS: LEVOFLOXACIN 750 MG TAB PO SCH (08:44)
[2016-09-04] MEDS: amLODIPine BESYLATE 5 MG TAB PO SCH (08:44)
[2016-09-04] MEDS: GABAPENTIN 400 MG CAP PO SCH ×2 (08:44→21:23)
[2016-09-04] MEDS: POTASSIUM CHLORIDE 10 MEQ CONTROLLED RELEASE TAB PO SCH (08:45)
[2016-09-04] MEDS: SODIUM CHLORIDE 0.9% FLUSH 10 ML FLUSH IV FLUSH SCH ×2 (08:48→21:23)
[2016-09-04] MEDS: DOCUSATE SODIUM 50 MG/SENNA 8.6 MG TAB PO SCH ×2 (08:53→21:23)
[2016-09-04] MEDS: INSULIN DETEMIR 100 UNITS/ML VIAL SQ SCH ×2 (08:55→21:27)
[2016-09-04] MEDS ORDERED: INSULIN DETEMIR 100 UNITS/ML VIAL SQ SCH (09:00)
--- NOTE | 2016-09-04 09:33 | HHI.FPPN ---
Subjective Remarks No acute events overnight. Afebrile, vital signs stable. Patient states she is doing well today. Endorses chest pain when she leans forward however states this is much improved after having her chest tube removed yesterday. Reported oxygen desaturation while walking to the hallway to the 60s on 5 L nasal cannula. Last bowel movement yesterday. (Vero Quinn MD R3) Objective Vitals Vital Signs Date Time Temp Pulse Resp B/P Pulse Ox O2 Delivery O2 Flow Rate FiO2 09/04/16 06:00 18 09/04/16 05:00 84 09/04/16 04:00 Nasal Cannula 4.00 Humidified 09/04/16 04:00 98.1 83 16 132/80 99 09/04/16 04:00 81 09/04/16 03:32 94 30 09/04/16 03:00 84 09/04/16 02:00 84 09/04/16 01:00 90 09/04/16 00:12 95 30 09/04/16 00:00 112 09/04/16 00:00 98.2 89 16 120/82 98 09/03/16 23:00 Nasal Cannula 4.00 Humidified 09/03/16 23:00 92 09/03/16 22:00 18 09/03/16 22:00 94 09/03/16 21:00 Nasal Cannula 5.00 09/03/16 21:00 94 09/03/16 20:00 92 09/03/16 20:00 98.1 94 16 144/94 98 09/03/16 19:50 Nasal Cannula 4.00 Humidified 09/03/16 19:00 96 09/03/16 18:00 108 09/03/16 17:00 94 09/03/16 16:00 97 09/03/16 16:00 Nasal Cannula 4.00 30 09/03/16 16:00 98.2 97 16 126/91 97 09/03/16 15:00 106 09/03/16 14:00 90 09/03/16 13:00 94 09/03/16 12:51 16 09/03/16 12:00 Nasal Cannula 4.00 09/03/16 12:00 95 09/03/16 12:00 98.1 94 16 126/98 97 09/03/16 11:00 88 09/03/16 10:49 16 09/03/16 10:00 90 I/O 09/03/16 09/03/16 09/03/16 09/04/16 09/04/16 09/04/16 07:00 15:00 23:00 07:00 15:00 23:00 Intake Total 900 ml 1382 ml 480 ml Output Total 1600 ml 575 ml Balance -700 ml 807 ml 480 ml Intake Oral 480 ml 780 ml 480 ml IV Total 420 ml 602 ml Output Urine Total 1600 ml 575 ml Drainage Total 0 ml # Voids 2 # Bowel Movements 0 1 0 (Vero Quinn MD R3) Result Diagram: 09/02/16 0509/02/16 05 Objective Remarks GENERAL: No acute distress SKIN: No rashes, ecchymoses. Chest tube insertion site dressed, dressing clean/ dry/intact EYES: Extraocular motions intact. NECK: Trachea midline. No lymphadenopathy. CARDIOVASCULAR: Regular rate and rhythm without murmurs, gallops, or rubs. RESPIRATORY: Clear to auscultation bilaterally GASTROINTESTINAL: Abdomen soft, non-tender, obese. MUSCULOSKELETAL: No calf tenderness. NEUROLOGICAL: Awake and alert. Cranial nerves II through XII intact. Motor and sensory grossly within normal limits. Normal speech. (Vero Quinn MD R3) A/P Assessment and Plan 50 yo F, hx of pulmonary fibrosis and lupus, presenting with respiratory failure. Discharge Planning Pending clinical improvement. (Vero Quinn MD R3) Attending Attestation Patient seen and examined. Case reviewed and discussed. Agree with plan of care as discussed with me and documented in the resident note. CT removed yesterday. Breathing stable Monitor wbc (Chely Pitts MD) Problem List: (1) Pulmonary fibrosis Status: Acute Plan: Patient with hx of lupus, admitted for respiratory failure. Blood gas on admission: O2 saturation 90, pH 7.5, PCO2 42. ACS r/o reassuring. Patient is on 2-3 L NC at home. CT shows evidence of pulmonary fibrosis. Now s/p left lung biopsy via thoracotomy following attempted thorascopic approach 08/31. - Pulmonology following, appreciate recommendations - Cardiothoracic surgery following - left sided chest tube (08/31) with generous output (300 ml total) - Repeat CXR 09/01 unchanged - Biopsy pending - Chest tube removed 09/03 - Galina-Colace to 2 tab BID --> Miralax once now, encourage nursing staff to administer PRN constipation medications - Leukocytosis of 20 following surgery, likely due to stress reaction and steroid use, patient's vitals and exam otherwise reassuring. Will continue to monitor. Trending down. - Transition from Cefepime 2 g IV q24 (started 08/24), to Levaquin 750 PO daily x 2 days. - Duonebs q4hrs, with albuterol PRN - Solumedrol 40 mg IV q12h, decreased to 60 mg PO prednisone daily. - Continue Symbicort - Singulair 10 mg at night - Acapella and respiratory spirometer - Follow up PFT's (2) Diabetes mellitus Status: Chronic Plan: Home medications: Levemir 40 units BID, Novolog 30 units TIDAC. Hemoglobin A1c 9.5 from 05/02/16. Serum glucose 44 on presentation to emergency department, therefore insulin was held. Since that time, glucose has been labile. - Continue with 40 units Levemir BID. - Decrease NovoLog to 15 units (from 25 untis) TIDAC - Continue low-dose ISS. - Will monitor very closely as patient tapers down on steroids. (3) Lupus Status: Acute Plan: Pt on Plaquenil 200 mg BID and prednisone 10mg at home. * Continue home Plaquenil * Dr. Rodríguez has reached out to patient's Experimental Psychologist --> patient could likely benefit greatly from a biologic. * Continue steroid taper while in hospital. (4) Acute renal failure Status: Acute Plan: Patient with acute on chronic renal failure. GFR on admission 15, down from baseline of 40s. Likely due to decreased perfusion secondary to sepsis, now resolving. Cr 3.23 on admission -> 1.40. Patient had CT-guided needle biopsy of right kidney on 08/01/15. Pathology report diagnosed as: Diffuse and nodular diabetic glomerulosclerosis. Global and segmental glomerulosclerosis. Interstitial fibrosis and tubular atrophy, severe. Arteriosclerosis, severe. - Nephrology on board - Avoid nephrotoxic agents - Renally dose medications - Calcitriol for secondary hyperparathyroidism (5) FEN/PPX Status: Acute Plan: PO fluids Nutrition: 1800 ADA DVT PPX: Heparin GI PPX: Protonix (on steroid treatment) Electrolytes: Monitor (Vero Quinn MD R3) Problem Qualifiers (1) Diabetes mellitus: Qualified Code: E11.9 - Type 2 diabetes mellitus without complication, with long-term current use of insulin Vero Quinn MD R3 Sep 04, 2016 09:33 Chely Pitts MD Sep 04, 2016 15:58
[2016-09-04 09:53] LABS: AUTOMATED NEUTROPHIL # 17.3 TH/MM3 (1.8-7.7); BASOPHIL # 0.1 TH/MM3 (0-0.2); BASOPHIL % 0.3 % (0.0-2.0); HEMATOCRIT 36.8 % (35.0-46.0); HEMO FLAGS DIFF FINAL; LYMPH % 4.3 % (9.0-44.0); LYMPHOCYTE # 0.8 TH/MM3 (1.0-4.8); MEAN CELL VOLUME 87.3 FL (80.0-100.0); MEAN CORPUSCULAR HGB CONC 30.9 % (32.0-36.0); NEUT % 92.4 % (16.0-70.0); PLATELET COUNT 329 TH/MM3 (150-450); RED BLOOD COUNT 4.21 MIL/MM3 (4.00-5.30); WHITE BLOOD COUNT 18.7 TH/MM3 (4.0-11.0)
[2016-09-04 10:23] LABS: BICARBONATE 27.4 MEQ/L (21.0-32.0); POTASSIUM 5.7 MEQ/L (3.5-5.1)
--- NOTE | 2016-09-04 10:40 | PD.CAR.PN ---
CVT Progress Note Subjective/Hospital Course: 50 yo F, hx of pulmonary fibrosis and lupus, presenting with respiratory failure. Blood gas on admission: O2 saturation 90, pH 7.5, PCO2 42. ACS r/o reassuring. Patient is on 2-3 L NC at home. CT shows evidence of pulmonary fibrosis. - Cardiothoracic surgery has been consulted for lung biopsy 08/29 Patient preop for thoracoscopic lung biopsy today, but her blood sugar is out of control. Surgery cancelled secondary to hyperglycemia. 08/30 BGM still labile is tentatively scheduled for lung bx in am 09/01 Doing well s/p Lung biopsy Maintain CT Ambulate 09/02 Clinically stable c/o SOB CXR pending Likely D/C CT tomorrow Awaiting pathology 09/03 will dc chest tube today await path on nasal cannula 09/04 cxr no evidence of PTX persistent left lower infiltrate/ continue pulm toileting nebs / ezpap ok for dc from [facility] standpoint / 2 week f/u with Dr Zelaya Objective: Vital Signs Date Time Temp Pulse Resp B/P Pulse Ox O2 Delivery O2 Flow Rate FiO2 09/04/16 10:03 92 Nasal Cannula 4.00 09/04/16 08:23 83 09/04/16 08:23 97.9 83 18 130/88 93 09/04/16 08:23 93 Nasal Cannula 4.00 Humidified 09/04/16 06:00 18 09/04/16 05:00 84 09/04/16 04:00 Nasal Cannula 4.00 Humidified 09/04/16 04:00 98.1 83 16 132/80 99 09/04/16 04:00 81 09/04/16 03:32 94 30 09/04/16 03:00 84 09/04/16 02:00 84 09/04/16 01:00 90 09/04/16 00:12 95 30 09/04/16 00:00 112 09/04/16 00:00 98.2 89 16 120/82 98 09/03/16 23:00 Nasal Cannula 4.00 Humidified 09/03/16 23:00 92 09/03/16 22:00 18 09/03/16 22:00 94 09/03/16 21:00 Nasal Cannula 5.00 09/03/16 21:00 94 09/03/16 20:00 92 09/03/16 20:00 98.1 94 16 144/94 98 09/03/16 19:50 Nasal Cannula 4.00 Humidified 09/03/16 19:00 96 09/03/16 18:00 108 09/03/16 17:00 94 09/03/16 16:00 97 09/03/16 16:00 Nasal Cannula 4.00 30 09/03/16 16:00 98.2 97 16 126/91 97 09/03/16 15:00 106 09/03/16 14:00 90 09/03/16 13:00 94 09/03/16 12:51 16 09/03/16 12:00 Nasal Cannula 4.00 09/03/16 12:00 95 09/03/16 12:00 98.1 94 16 126/98 97 09/03/16 11:00 88 09/03/16 10:49 16 Labs: Laboratory Tests Test 09/04/16 09:33 White Blood Count 18.7 TH/MM3 (4.0-11.0) Red Blood Count 4.21 MIL/MM3 (4.00-5.30) Hemoglobin 11.4 GM/DL (11.6-15.3) Hematocrit 36.8 % (35.0-46.0) Mean Corpuscular Volume 87.3 FL (80.0-100.0) Mean Corpuscular Hemoglobin 27.0 PG (27.0-34.0) Mean Corpuscular Hemoglobin 30.9 % Concent (32.0-36.0) Red Cell Distribution Width 18.0 % (11.6-17.2) Platelet Count 329 TH/MM3 (150-450) Mean Platelet Volume 8.3 FL (7.0-11.0) Neutrophils (%) (Auto) 92.4 % (16.0-70.0) Lymphocytes (%) (Auto) 4.3 % (9.0-44.0) Monocytes (%) (Auto) 3.0 % (0.0-8.0) Eosinophils (%) (Auto) 0.0 % (0.0-4.0) Basophils (%) (Auto) 0.3 % (0.0-2.0) Neutrophils # (Auto) 17.3 TH/MM3 (1.8-7.7) Lymphocytes # (Auto) 0.8 TH/MM3 (1.0-4.8) Monocytes # (Auto) 0.6 TH/MM3 (0-0.9) Eosinophils # (Auto) 0.0 TH/MM3 (0-0.4) Basophils # (Auto) 0.1 TH/MM3 (0-0.2) CBC Comment DIFF FINAL Differential Comment Sodium Level 128 MEQ/L (136-145) Potassium Level 5.7 MEQ/L (3.5-5.1) Chloride Level 92 MEQ/L (98-107) Carbon Dioxide Level 27.4 MEQ/L (21.0-32.0) Anion Gap 9 MEQ/L (5-15) Blood Urea Nitrogen 46 MG/DL (7-18) Creatinine 1.78 MG/DL (0.50-1.00) Estimat Glomerular Filtration 36 ML/MIN (>89) Rate Random Glucose 353 MG/DL (74-106) Calcium Level 9.2 MG/DL (8.5-10.1) Result Diagram: 09/04/1633 09/04/1633 (1) Lupus (2) Acute exacerbation of chronic obstructive pulmonary disease (3) Interstitial lung disease (4) s/p lung bx Plan: await path nebs / ezpap pulm toileting stable for dc home has chronic 02 at home wound care with [facility] Sara Moser Sep 04, 2016 10:40
[2016-09-04] MEDS: INSULIN ASPART 1,000 UNITS/10 ML VIAL SQ SCH ×2 (12:00→17:35)
[2016-09-04] MEDS ORDERED: PIPERACIL-TAZO 4.5 GM PREMIX 100 ML IV SCH (13:45)
[2016-09-04] MEDS ORDERED: Vancomycin Consult Pharmacy 1 EA OTHER SCH (13:45)
[2016-09-04] MEDS ORDERED: VANCOMYCIN INJ 1,000 MG in SODIUM CHLOR 0.9% 250 ML INJ 250 ML IV SCH (13:45)
--- NOTE | 2016-09-04 19:09 | HHI.PR ---
Subjective Remarks 50 YO AA female with Lupus,YOJANA,COPD No Fever Weaned to 3 LNC Uses CPAP Had VATS done Chest tube removed Lung bx consistant with end stage Fibrosis and UIP Objective Vital Signs Vital Signs Date Time Temp Pulse Resp B/P Pulse Ox O2 Delivery O2 Flow Rate FiO2 09/04/16 16:51 18 09/04/16 16:32 88 09/04/16 16:32 93 Nasal Cannula 4.00 Humidified 09/04/16 16:32 97.8 80 18 119/78 93 09/04/16 12:39 18 09/04/16 12:07 90 09/04/16 12:07 98.0 86 18 130/85 94 09/04/16 12:07 94 Nasal Cannula 4.00 Humidified 09/04/16 10:03 92 Nasal Cannula 4.00 09/04/16 08:23 83 09/04/16 08:23 97.9 83 18 130/88 93 09/04/16 08:23 93 Nasal Cannula 4.00 Humidified 09/04/16 06:00 18 09/04/16 05:00 84 09/04/16 04:00 Nasal Cannula 4.00 Humidified 09/04/16 04:00 98.1 83 16 132/80 99 09/04/16 04:00 81 09/04/16 03:32 94 30 09/04/16 03:00 84 09/04/16 02:00 84 09/04/16 01:00 90 09/04/16 00:12 95 30 09/04/16 00:00 112 09/04/16 00:00 98.2 89 16 120/82 98 09/03/16 23:00 Nasal Cannula 4.00 Humidified 09/03/16 23:00 92 09/03/16 22:00 18 09/03/16 22:00 94 09/03/16 21:00 Nasal Cannula 5.00 09/03/16 21:00 94 09/03/16 20:00 92 09/03/16 20:00 98.1 94 16 144/94 98 09/03/16 19:50 Nasal Cannula 4.00 Humidified I/O 09/03/16 09/03/16 09/03/16 09/04/16 09/04/16 09/04/16 07:00 15:00 23:00 07:00 15:00 23:00 Intake Total 900 ml 1382 ml 480 ml 960 ml Output Total 1600 ml 575 ml Balance -700 ml 807 ml 480 ml 960 ml Intake Oral 480 ml 780 ml 480 ml 960 ml IV Total 420 ml 602 ml Output Urine Total 1600 ml 575 ml Drainage Total 0 ml # Voids 2 4 # Bowel Movements 0 1 0 0 Result Diagram: 09/04/1693209/04/16932 Objective Remarks GENERAL: WBWN Female, NAD SKIN: Warm and dry. HEAD: Normocephalic. EYES: No scleral icterus. No injection or drainage. NECK: Supple, trachea midline. No JVD or lymphadenopathy. CARDIOVASCULAR: Regular rate and rhythm without murmurs, gallops, or rubs. RESPIRATORY: Breath sounds equal bilaterally. No accessory muscle use. GASTROINTESTINAL: Abdomen soft, non-tender, nondistended. MUSCULOSKELETAL: No cyanosis, or edema. BACK: Nontender without obvious deformity. No CVA tenderness. A/P Assessment and Plan Dysnoea and Hypoxia ILd, ? etiology Lupus COPD YOJANA DM CKD PLAN: Aerosol nebs cont Abx Monitor BS pain controll CPAP at night DW pt bx results DC plans for home Will need complete PFT as out pt Dez Millan MD Sep 04, 2016 19:09
[2016-09-04] MEDS: predniSONE 20 MG TAB PO SCH (21:23)
[2016-09-04] MEDS: MONTELUKAST SODIUM 10 MG TAB PO SCH (21:23)
[2016-09-04] MEDS: CALCIUM CARBONATE 1.25 GM (CA 500 MG) TAB PO SCH (21:23)
[2016-09-04] MEDS: ZOLPIDEM TARTRATE 5 MG TAB PO PRN (23:45)
[2016-09-05] VITALS (12 sets, daily range): BP systolic 119–133; BP diastolic 74–86; PULSE 76–101; RESP 18–20; TEMP 97.9–98; O2SAT 93–99
[2016-09-05] MEDS: RESP: ALBUTEROL CONC 2.5 MG/0.5 ML NEB NEB PRN (00:08)
[2016-09-05 05:46] LABS: AUTOMATED NEUTROPHIL # 11.9 TH/MM3 (1.8-7.7); BASOPHIL % 0.2 % (0.0-2.0); EOSINOPHIL % 0.1 % (0.0-4.0); HEMATOCRIT 32.7 % (35.0-46.0); HEMO FLAGS DIFF FINAL; LYMPH % 5.2 % (9.0-44.0); LYMPHOCYTE # 0.7 TH/MM3 (1.0-4.8); MEAN CELL VOLUME 86.2 FL (80.0-100.0); MEAN CORPUSCULAR HEMOGLOBIN 26.8 PG (27.0-34.0); MONO % 3.2 % (0.0-8.0); NEUT % 91.3 % (16.0-70.0); PLATELET COUNT 252 TH/MM3 (150-450); RED BLOOD COUNT 3.79 MIL/MM3 (4.00-5.30); RED CELL DISTRIBUTION WIDTH 16.7 % (11.6-17.2)
[2016-09-05 06:07] LABS: BICARBONATE 32.4 MEQ/L (21.0-32.0); POTASSIUM 5.7 MEQ/L (3.5-5.1)
[2016-09-05] MEDS: INSULIN ASPART SUPPLEMENTAL SCALE SQ SCH ×2 (06:25→11:00)
[2016-09-05] MEDS: INSULIN DETEMIR 100 UNITS/ML VIAL SQ SCH (09:00)
[2016-09-05] MEDS: BUMETANIDE 1 MG TAB PO SCH (09:20)
[2016-09-05] MEDS: ACETAMINOPHEN/CODEINE 300 MG/30 MG TAB PO PRN (09:20)
[2016-09-05] MEDS: CALCITRIOL 0.25 MCG CAP PO SCH (09:21)
[2016-09-05] MEDS: HYDROXYCHLOROQUINE SULFATE 200 MG TAB PO SCH (09:21)
[2016-09-05] MEDS: amLODIPine BESYLATE 5 MG TAB PO SCH (09:21)
[2016-09-05] MEDS: GABAPENTIN 400 MG CAP PO SCH (09:21)
[2016-09-05] MEDS: LEVOFLOXACIN 750 MG TAB PO SCH (09:21)
[2016-09-05] MEDS: DOCUSATE SODIUM 50 MG/SENNA 8.6 MG TAB PO SCH (09:22)
[2016-09-05] MEDS: BUDESONIDE-FORMOTEROL 160/4.5 MCG INHALER INH SCH (09:22)
[2016-09-05] MEDS: SODIUM CHLORIDE 0.9% FLUSH 10 ML FLUSH IV FLUSH SCH (09:23)
[2016-09-05] MEDS: INSULIN ASPART 1,000 UNITS/10 ML VIAL SQ SCH ×2 (09:26→11:45)
--- NOTE | 2016-09-05 09:28 | RADRPT ---
EXAM DATE/TIME: 09/05/2016 08:57 [facility] COMPARISON: CT THORAX W/O CONTRAST, August 24, 2016, 22:49. CHEST SINGLE AP, September 04, 2016, 4:39. INDICATIONS : Chest pain. Infiltrate. MEDICAL HISTORY : Hypertension. Chronic obstructive pulmonary disease. Diabetes. SURGICAL HISTORY : None. ENCOUNTER: Subsequent ACUITY: 4 - 6 days PAIN SCORE: 6/10 LOCATION: Bilateral chest FINDINGS: The heart is enlarged. There is diffuse interstitial prominence which appears chronic. This is stable compared to the previous dated 09/04/16. The visualized bony structures are grossly intact. CONCLUSION: 1. Cardiomegaly with chronic appearing interstitial changes. Stable compared to previous exam. Adalberto Hall MD on September 05, 2016 at 9:16 Board Certified Radiologist. This report was verified electronically.
[2016-09-05] MEDS ORDERED: LEVA750T9 PO (09:33)
[2016-09-05] MEDS ORDERED: AMLO5 PO (09:33)
[2016-09-05] MEDS ORDERED: PRED20 PO ×2 (09:34→11:27)
--- NOTE | 2016-09-05 09:42 | HHI.FF ---
Face to Face Verification Diagnosis: (1) Interstitial lung disease Home Health Nursing Order: Medical education Medication education-adverse effect Nursing assessment with vital signs Home Health Aide Order: To Assist In: Bathing and personal care I have seen patient Mireya See on 09/05/16. My clinical findings support the need for the requested home health care services because: her interstitial lung disease prevents her ability to completely perform her activities of daily living. Ltd mobility - disease progression Patient has SOB Deconditioned w/ increased weakness Limited ability to care for self High risk of falls I certify that my clinical findings support that this patient is homebound because: Her interstitial lung disease severely limits her ability to care for herself. Hx COPD- exertion dyspnea/weakness Unsafe to leave home unassisted Vero Quinn MD R3 Sep 05, 2016 09:41
--- NOTE | 2016-09-05 09:43 | HHI.DCPOC ---
Discharge Care Plan Goals to Promote Your Health * To prevent worsening of your condition and complications take all medications as prescribed * To maintain your health at the optimal level follow-up discharge instructions including follow-up appointments Directions to Meet Your Goals Take your medications as prescribed Follow your dietary instruction Follow activity as directed Keep your appointments as scheduled Take your immunizations and boosters as scheduled If your symptoms worsen call your PCP, if no PCP go to Urgent Care Center or Emergency Room Smoking is Dangerous to Your Health. Avoid second hand smoke Call the 24-hour hour crisis hotline for domestic abuse at Vero Quinn MD R3 Sep 05, 2016 09:43
--- NOTE | 2016-09-05 09:55 | HHI.FPPN ---
Subjective Remarks No acute events overnight. Afebrile, vital signs stable. Patient denies shortness of breath, chest pain. States she is ready to go home. (Vero Quinn MD R3) Objective Vitals Vital Signs Date Time Temp Pulse Resp B/P Pulse Ox O2 Delivery O2 Flow Rate FiO2 09/05/16 06:00 90 09/05/16 05:20 98 Bi-Pap 09/05/16 05:00 83 09/05/16 04:07 95 30 09/05/16 04:00 78 18 124/82 98 09/05/16 04:00 76 09/05/16 03:00 86 09/05/16 02:00 90 09/05/16 01:00 94 09/05/16 00:08 96 30 09/05/16 00:00 98 Bi-Pap 09/05/16 00:00 101 09/05/16 00:00 97.9 92 18 133/86 99 09/04/16 23:00 90 09/04/16 22:00 90 09/04/16 21:33 94 Nasal Cannula 4.00 09/04/16 21:00 86 09/04/16 20:25 98 Nasal Cannula 4.00 Humidified 09/04/16 20:00 98.0 94 18 119/75 99 09/04/16 20:00 91 09/04/16 19:00 98 09/04/16 16:51 18 09/04/16 16:32 88 09/04/16 16:32 93 Nasal Cannula 4.00 Humidified 09/04/16 16:32 97.8 80 18 119/78 93 09/04/16 12:39 18 09/04/16 12:07 90 09/04/16 12:07 98.0 86 18 130/85 94 09/04/16 12:07 94 Nasal Cannula 4.00 Humidified 09/04/16 10:03 92 Nasal Cannula 4.00 I/O 09/04/16 09/04/16 09/04/16 09/05/16 09/05/16 09/05/16 07:00 15:00 23:00 07:00 15:00 23:00 Intake Total 480 ml 960 ml 480 ml Balance 480 ml 960 ml 480 ml Intake Oral 480 ml 960 ml 480 ml # Voids 2 4 3 # Bowel Movements 0 0 (Vero Quinn MD R3) Result Diagram: 09/05/1652909/05/16529 Objective Remarks GENERAL: No acute distress SKIN: No rashes, ecchymoses. Chest tube insertion site dressed, dressing clean/ dry/intact EYES: Extraocular motions intact. NECK: Trachea midline. No lymphadenopathy. CARDIOVASCULAR: Regular rate and rhythm without murmurs, gallops, or rubs. RESPIRATORY: Clear to auscultation bilaterally GASTROINTESTINAL: Abdomen soft, non-tender, obese. MUSCULOSKELETAL: No calf tenderness. NEUROLOGICAL: Awake and alert. Cranial nerves II through XII intact. Motor and sensory grossly within normal limits. Normal speech. (Vero Quinn MD R3) A/P Assessment and Plan 50 yo F, hx of pulmonary fibrosis and lupus, presenting with respiratory failure. Discharge Planning To home with home health today (Vero Quinn MD R3) Attending Attestation Patient seen and examined. Case reviewed and discussed Agree with plan of care as discussed with me and documented in the resident note. Improved, wants to go home. Bx results provided to patient. Discharge planning (Chely Pitts MD) Problem List: (1) Pulmonary fibrosis Status: Acute Plan: Patient with hx of lupus, admitted for respiratory failure. Blood gas on admission: O2 saturation 90, pH 7.5, PCO2 42. ACS r/o reassuring. Patient is on 2-3 L NC at home. CT shows evidence of pulmonary fibrosis. Now s/p left lung biopsy via thoracotomy following attempted thorascopic approach 08/31. Lung pathology showed idiopathic pulmonary fibrosis. Lung pathology showed idiopathic pulmonary fibrosis. Patient will follow-up with outpatient PFTs, with pulmonology and with her primary care physician. - Pulmonology following, recommend PFTs as an outpatient and follow-up with pulmonary - Cardiothoracic surgery cleared patient for discharge, chest tube removed 09/03 (2) Respiratory failure Status: Resolved Plan: Patient admitted with COPD exacerbation and hypoxia. She has had a persistent leukocytosis, which is now downtrending. Chest x-ray positive for left lower lobe infiltrate. Patient is status post cefepime 10 day's, currently on by mouth Levaquin. She has remained afebrile and has returned to her baseline oxygen requirement. (3) Diabetes mellitus Status: Chronic Plan: Home medications: Levemir 40 units BID, Novolog 30 units TIDAC. Hemoglobin A1c 9.5 from 05/02/16. Patient will follow with her PCP (4) Lupus Status: Acute Plan: Pt on Plaquenil 200 mg BID and prednisone 10mg at home. * Continue home Plaquenil * Dr. Rodríguez has reached out to patient's Gift Manager --> patient could likely benefit greatly from a biologic. * Discharged with 40 mg prednisone daily (5) Acute renal failure Status: Acute Plan: Patient with acute on chronic renal failure. GFR on admission 15, down from baseline of 40s. Likely due to decreased perfusion secondary to sepsis, now resolving. Patient had CT-guided needle biopsy of right kidney on 08/01/15. Pathology report diagnosed as: Diffuse and nodular diabetic glomerulosclerosis. Global and segmental glomerulosclerosis. Interstitial fibrosis and tubular atrophy, severe. Arteriosclerosis, severe. - Nephrology on board - Avoid nephrotoxic agents - Renally dose medications - Calcitriol for secondary hyperparathyroidism (6) Hyperkalemia Status: Acute Plan: Patient with potassium of 5.7, holding home potassium supplementation. Given dose of Kayexalate prior to discharge. BMP in 1 week with follow-up with PCP. (7) FEN/PPX Status: Acute Plan: PO fluids Nutrition: 1800 ADA DVT PPX: Heparin GI PPX: Protonix (on steroid treatment) Electrolytes: Monitor (Vero Quinn MD R3) Problem Qualifiers (1) Diabetes mellitus: Qualified Code: E11.9 - Type 2 diabetes mellitus without complication, with long-term current use of insulin Vero Quinn MD R3 Sep 05, 2016 09:55 Chely Pitts MD Sep 05, 2016 16:06
--- NOTE | 2016-09-05 10:09 | HHI.DS ---
Discharge Summary Admission Date August 23, 2016 at 18:40 Discharge Date: Sep 05, 2016 Admitting Diagnosis COPD exacerbation, hypoxia, acute on chronic kidney disease (1) Pulmonary fibrosis Diagnosis: Principal Plan: Patient with hx of lupus, admitted for respiratory failure. Blood gas on admission: O2 saturation 90, pH 7.5, PCO2 42. ACS r/o reassuring. Patient is on 2-3 L NC at home. CT shows evidence of pulmonary fibrosis. Now s/p left lung biopsy via thoracotomy following attempted thorascopic approach 08/31. Lung pathology showed idiopathic pulmonary fibrosis. Lung pathology showed idiopathic pulmonary fibrosis. Patient will follow-up with outpatient PFTs, with pulmonology and with her primary care physician. - Pulmonology following, recommend PFTs as an outpatient and follow-up with pulmonary - Cardiothoracic surgery cleared patient for discharge, chest tube removed 09/03 (2) Respiratory failure Diagnosis: Principal Plan: Patient admitted with COPD exacerbation and hypoxia. She has had a persistent leukocytosis, which is now downtrending. Chest x-ray positive for left lower lobe infiltrate. Patient is status post cefepime 10 day's, currently on by mouth Levaquin. She has remained afebrile and has returned to her baseline oxygen requirement. (3) Diabetes mellitus Diagnosis: Secondary Plan: Home medications: Levemir 40 units BID, Novolog 30 units TIDAC. Hemoglobin A1c 9.5 from 05/02/16. Patient will follow with her PCP (4) Lupus Diagnosis: Secondary Plan: Pt on Plaquenil 200 mg BID and prednisone 10mg at home. * Continue home Plaquenil * Dr. Rodríguez has reached out to patient's Public Health Policy Analyst --> patient could likely benefit greatly from a biologic. * Discharged with 40 mg prednisone daily (5) Acute renal failure Diagnosis: Principal Plan: Patient with acute on chronic renal failure. GFR on admission 15, down from baseline of 40s. Likely due to decreased perfusion secondary to sepsis, now resolving. Patient had CT-guided needle biopsy of right kidney on 08/01/15. Pathology report diagnosed as: Diffuse and nodular diabetic glomerulosclerosis. Global and segmental glomerulosclerosis. Interstitial fibrosis and tubular atrophy, severe. Arteriosclerosis, severe. - Nephrology on board - Avoid nephrotoxic agents - Renally dose medications - Calcitriol for secondary hyperparathyroidism Consult[facility] Pulmonology Nephrology Cardiothoracic surgery Procedures Thoracotomy Brief History Patient is a 50 yo F, hx of COPD and lupus, coming to the ED to be evaluated for SOB. She states that over the past few days, she has been experiencing worsening shortness of breath. She has been using home dose nasal cannula oxygen at 3 L. At one point, she noticed that pulse ox was as low as 70. When she noticed her oxygen level was this low, she also experienced jerking over her entire body. She reports that it felt as though her muscles were twitching.. She increased her oxygen via nasal cannula to 4.5 L, and noticed increased and her pulse ox to 90. Over the course of the past day, patient reports that her shortness of breath continued to worsen to the point that she could not remain at home any longer. She states that since presenting to the emergency department, she feels much better. providers neftaly - [facility] nephrology - chang CBC/BMP: 09/05/16 0530 09/05/16 0530 Significant Findings Laboratory Tests Test 09/04/16 09/05/16 09:33 05:30 White Blood Count 18.7 TH/MM3 13.0 TH/MM3 (4.0-11.0) (4.0-11.0) Hemoglobin 11.4 GM/DL 10.1 GM/DL (11.6-15.3) (11.6-15.3) Mean Corpuscular Hemoglobin 30.9 % 31.0 % Concent (32.0-36.0) (32.0-36.0) Red Cell Distribution Width 18.0 % (11.6-17.2) Neutrophils (%) (Auto) 92.4 % 91.3 % (16.0-70.0) (16.0-70.0) Lymphocytes (%) (Auto) 4.3 % 5.2 % (9.0-44.0) (9.0-44.0) Neutrophils # (Auto) 17.3 TH/MM3 11.9 TH/MM3 (1.8-7.7) (1.8-7.7) Lymphocytes # (Auto) 0.8 TH/MM3 0.7 TH/MM3 (1.0-4.8) (1.0-4.8) Sodium Level 128 MEQ/L 133 MEQ/L (136-145) (136-145) Potassium Level 5.7 MEQ/L 5.7 MEQ/L (3.5-5.1) (3.5-5.1) Chloride Level 92 MEQ/L 96 MEQ/L (98-107) (98-107) Blood Urea Nitrogen 46 MG/DL (7-18) 46 MG/DL (7-18) Creatinine 1.78 MG/DL 1.63 MG/DL (0.50-1.00) (0.50-1.00) Estimat Glomerular Filtration 36 ML/MIN (>89) 40 ML/MIN (>89) Rate Random Glucose 353 MG/DL 229 MG/DL (74-106) (74-106) Red Blood Count 3.79 MIL/MM3 (4.00-5.30) Hematocrit 32.7 % (35.0-46.0) Mean Corpuscular Hemoglobin 26.8 PG (27.0-34.0) Carbon Dioxide Level 32.4 MEQ/L (21.0-32.0) Imaging Last Impressions Chest X-Ray 09/05/16 0600 Signed Impressions: Service Date/Time: Monday, September 05, 2016 08:57 - CONCLUSION: 1. Cardiomegaly with chronic appearing interstitial changes. Stable compared to previous exam. Adalberto Hall MD Chest CT 08/24/16 0000 Signed Impressions: Service Date/Time: Wednesday, August 24, 2016 22:49 - CONCLUSION: No significant infiltrate or mass. Chronic interstitial lung disease with diffuse bronchiectasis. Mediastinal lymphadenopathy clearly smaller than in 2015. Erick Mack MD PE at Discharge GENERAL: No acute distress SKIN: No rashes, ecchymoses. Chest tube insertion site dressed, dressing clean/ dry/intact EYES: Extraocular motions intact. NECK: Trachea midline. No lymphadenopathy. CARDIOVASCULAR: Regular rate and rhythm without murmurs, gallops, or rubs. RESPIRATORY: Clear to auscultation bilaterally GASTROINTESTINAL: Abdomen soft, non-tender, obese. MUSCULOSKELETAL: No calf tenderness. NEUROLOGICAL: Awake and alert. Cranial nerves II through XII intact. Motor and sensory grossly within normal limits. Normal speech. Hospital Course Patient admitted with respiratory failure from suspected COPD exacerbation versus possible pneumonia and treated with Solu-Medrol and cefepime. Pulmonary was consulted and recommended lung biopsy. Patient underwent thoracotomy on 08/31 to determine underlying etiology of her interstitial lung disease. She tolerated the procedure well and the chest tube was removed without incident. Patient's respiratory status improved on steroids and antibiotics however she continued to have a leukocytosis that was likely a stress response secondary to her surgery with a persistent left lower lobe infiltrate on chest x-ray. Antibiotics and steroids were deescalated which the patient tolerated well and she was discharged on 5 days of Levaquin and 1 week of prednisone. The patient' s acute on chronic renal failure also resolved with hydration and she was discharged home on her home medication diuretics. She was hyperkalemic however was previously on potassium supplementation which was discontinued. Pathology of the lung biopsy revealed idiopathic pulmonary fibrosis. Patient will have pulmonary function testing done as an outpatient and will follow-up with pulmonology. She will also have repeat CBC and BMP in 1 week before following up with her PCP. Pt Condition on Discharge: Stable Discharge Disposition: Disch w/ Home Health Serv Discharge Instructions DIET: Follow Instructions for: As Tolerated, No Restrictions Activities you can perform: Regular-No Restrictions Follow up Referrals: PCP Follow-up Pulmonology - 2 Weeks with Dez Millan MD Surgical New Orders: BASIC METABOLIC PROF - 1 Week CBC WITH DIFF - 1 Week PULMONARY FUNCTION TEST - 3-5 Days New Medications: Prednisone (Prednisone) 20 Mg Tab 40 MG PO DAILY #14 Ref 0 TAB Amlodipine (Norvasc) 5 Mg Tab 5 MG PO DAILY #30 TAB Levofloxacin (Levaquin) 750 Mg Tablet 750 MG PO DAILY #5 TAB Continued Medications: Albuterol 18 GM Inh (Ventolin Hfa 18 GM Inh) 90 Mcg/Act Aer 2 PUFF INH Q4H PRN SHORTNESS OF BREATH #1 Ref 0 INHALER Albuterol Neb (Albuterol Neb) 2.5 Mg/0.5 Ml Neb 2.5 MG NEB Q4HR NEB Note: The Albuterol Sulfate Inhalation Solution is concentrated and must be diluted. Read complete instructions carefully before using. PRN SHORTNESS OF BREATH EA Aspirin (Aspirin) 81 Mg Tabdr 81 MG PO DAILY TAB Benzonatate (Tessalon Perles) 100 Mg Cap 200 MG PO TID PRN cough #30 Ref 0 CAP Budesonide-Formoterol Inh (Symbicort Inh) 160-4.5 Mcg/Act Aero 2 PUFF INH Q12HR #1 INHALER Bumetanide (Bumex) 2 Mg Tab 2 MG PO BID Ref 0 TAB Chlorhexidine Gluconate (Mouth) Liq (Chlorhexidine Gluconate (Mouth) Liq) 0.12% Soln Unknown Dose SWISH-SPIT BID #473 Ref 0 ML Ferrous Sulfate (Ferrous Sulfate) 325 Mg Tab 325 MG PO BID Nutritional Supplement #60 Ref 2 TAB Gabapentin (Gabapentin) 800 Mg Tab 800 MG PO BID #90 Ref 0 TAB Gabapentin (Neurontin) 300 Mg Cap 300 MG PO DAILY Days 30 CAP Hydroxychloroquine (Hydroxychloroquine) 200 Mg Tab 200 MG PO Q12HR #60 TAB Insulin Aspart Inj (Novolog Inj) 100 Unit/Ml Inj 30 UNITS SQ ACHS SLIDING SCALE #30 INJECTION Insulin Detemir Inj (Levemir Inj) 1,000 unit/ 10 ML Vial 40 UNITS SQ BID #30 INJECTION Ipratropium-Albuterol Neb (Duoneb) 0.5-2.5 Mg/3 Ml Neb 1 NEBULE INH HS Breathing Treatment #30 Ref 0 NEBULE Metolazone (Metolazone) 5 Mg Tab 5 MG PO TID #30 Ref 0 TAB Montelukast (Singulair) 10 Mg Tab 10 MG PO HS #30 Ref 0 TAB Multiple Vitamins W/ Minerals (Multivitamin Adults) 1 Tab 1 TAB PO DAILY Nutritional Supplement Ref 0 TAB Oxygen tank (Oxygen tank) 1 Ea Tank 2 LITER VARSHA.CANULA CONTINUOUS Oxygen Concentrator Portable Gaseous 2 L/min via Nasal Cannula Continuous For 99 months HYPOXEMIA PREVENTION #1 Ref 99 CYLINDER Pantoprazole (Protonix) 40 Mg Tab 40 MG PO DAILY Reflux #30 Ref 0 TAB ([Physical Therapy]) Discontinued Medications: Prednisone (Prednisone) 10 Mg Tab 10 MG PO DAILY take 40mg for 3 days, take 30mg for 3 days, take 20 mg for 3 days take 10 mg for 3 days, take 5mg for 3 days #32 Ref 0 TAB Vero Quinn MD R3 Sep 05, 2016 10:09
[2016-09-05] MEDS ORDERED: SODIUM POLYSTYRENE SULFONATE SUSP 15 GM/60 ML CUP PO ONE (11:30)
[2016-09-12] MEDS ORDERED: NOVOLOGSS SQ (17:14)
[2016-09-12] MEDS ORDERED: LEVEMIR SQ (17:14)
[2016-09-12] MEDS ORDERED: ALBU0.08 NEB (18:01)
[2016-09-12] MEDS ORDERED: PRED20 PO (18:01)
[2016-09-12] MEDS ORDERED: IPRASOL INH (18:01)
[2016-09-12] MEDS ORDERED: LANCMIS SQ (18:10)
[2016-09-17] MEDS ORDERED: LANC1MIS74 (14:59)
[2016-09-19] MEDS ORDERED: MONT10TA2 PO (23:24)
[2016-09-19] MEDS ORDERED: BUME1TAB PO (23:29)
[2016-09-19] MEDS ORDERED: GABA800T PO (23:30)
--- NOTE | 2016-09-20 15:51 | PD.OP ---
cc: Dez Millan MD; Lesli Zelaya MD Operative Report Date of Surgery: Aug 31, 2016 Preoperative Diagnosis: (1) Pneumonia (2) Interstitial lung disease Postoperative Diagnosis: same Procedure: Attempted left thoracoscopic lung biopsy, left thoracotomy for open lung biopsy Anesthesia: general Surgeon: Lesli Zelaya Anaesthesiologist(s): Daniel Phillips Operation and Findings: After adequate general anesthesia the patient was placed in the right lateral decubitus position and the left chest was prepped and draped in usual manner. An attempt was made to perform the lung biopsy thoracoscopically, but this was abandoned due to the thickness of the lung tissue and suboptimal exposure. A small lateral thoracotomy incision was performed and electrocautery was used to obtain hemostasis and carry the dissection down through the latissimus dorsi. The serratus anterior was retracted anteriorly and the 5th intercostal space was entered under direct vision and selective single lung ventilation. A retractor was placed. Exploration of the left hemithorax was significant for generalized fibrotic changes apparent on the visceral pleura. Two biopsies of the left upper lobe were performed using a surgical stapler. These were submitted to pathology and microbiology for cultures and diagnostic purposes. A 32 Yoruba chest tube was then placed through the prior anterior port and secured with 0 silk suture. An On Q pump was placed for postoperative analgesia. The lung was ventilated and no significant air leaks were found. The wound was closed in layers approximately in the ribs initially with a 2. Vicryl [id number] suture. The latissimus dorsi was reapproximated using a running 0 Vicryl suture. The subcutaneous tissues approximated running 2-0 Vicryl suture and the skin was approximated using running 4-0 Monocryl subcuticular stitch. All sponges history counts were correct at the close the procedure and the patient was transferred to the PACU for recovery purposes. Lesli Zelaya MD Sep 20, 2016 15:51
[2016-09-25] MEDS ORDERED: AMLO5 PO (15:53)
== END 2016-09-05 14:42 | disposition home health service (06) | DRG 853 ==
LOC: NEPE 15:18 → NEDA 18:40 → HIMN 21:04 → HCIS 08-26 14:01
PROVIDERS: ADMIT Family Medicine; ATTEND Family Medicine
PROC: 5A09557 Assistance with Respiratory Ventilation, Greater than 96 Consecutive Hours, Continuous Positive Airway Pressure (ICD-10-PCS; principal; 2016-08-23)
PROC: 0BJL4ZZ Inspection of Left Lung, Percutaneous Endoscopic Approach (ICD-10-PCS; 2016-08-31)
PROC: 0BBG0ZX Excision of Left Upper Lung Lobe, Open Approach, Diagnostic (ICD-10-PCS; 2016-08-31)
DX: A41.9 Sepsis, unspecified organism (principal); R65.21 Severe sepsis with septic shock; J96.91 Respiratory failure, unspecified with hypoxia; J18.9 Pneumonia, unspecified organism; E87.2 Acidosis; N17.9 Acute kidney failure, unspecified; M32.9 Systemic lupus erythematosus, unspecified; E11.22 Type 2 diabetes mellitus with diabetic chronic kidney disease; N18.3 Chronic kidney disease, stage 3 (moderate); J47.0 Bronchiectasis with acute lower respiratory infection; N25.81 Secondary hyperparathyroidism of renal origin; J84.112 Idiopathic pulmonary fibrosis; E11.649 Type 2 diabetes mellitus with hypoglycemia without coma; Z99.81 Dependence on supplemental oxygen; Z79.82 Long term (current) use of aspirin; Z87.891 Personal history of nicotine dependence; M19.90 Unspecified osteoarthritis, unspecified site; K21.9 Gastro-esophageal reflux disease without esophagitis; Z79.4 Long term (current) use of insulin; I12.9 Hypertensive chronic kidney disease with stage 1 through stage 4 chronic kidney disease, or unspecified chronic kidney disease; E83.51 Hypocalcemia; D63.1 Anemia in chronic kidney disease; E11.65 Type 2 diabetes mellitus with hyperglycemia; D86.9 Sarcoidosis, unspecified; E87.5 Hyperkalemia; G47.33 Obstructive sleep apnea (adult) (pediatric); T38.0X5A Adverse effect of glucocorticoids and synthetic analogues, initial encounter; F41.9 Anxiety disorder, unspecified
CPT/HCPCS: 36600; 71010; 71020; 71250; 80048; 80053; 80069; 81001; 82306; 82550; 82552; 82805; 82948; 83605; 83735; 83880; 83970; 84155; 84484; 85007; 85025; 85027; 85610; 85652; 85730; 86850; 86900; 86901; 87015; 87040; 87070; 87102; 87116; 87176; 87205; 87206; 87449; 87641; 88307; 93005; 94002; 94003; 94060; 94150; 94640; 94664; 94667; 94668; 95819; 96374; 96375; J0131; J0360; J0456; J0610; J0690; J0692; J1644; J1815; J2250; J2270; J2405; J2710; J2920; J2930; J3010; J7030; J7050; J7120; J7512; J7611; J7613

== ENCOUNTER 2016-12-30 13:05 | Inpatient (IN) | payer MEDICAID ==
[2016-12-30] VITALS (7 sets, daily range): BP systolic 80–154; BP diastolic 50–95; PULSE 82–109; RESP 18–26; TEMP 98–99.2; O2SAT 82–98
[~2016-12-30] VITALS: Ht 172.7 cm; Wt 103.0 kg
[~2016-12-30 13:05] MED LIST changes: -ALBU.5I NEB; +ALBU0.08 NEB; +AMOX875T2 PO; +ASPI81CH3 CHEW; -BENZ100 PO; +BUME1TAB PO; -BUME1TAB28 PO; -CHLO.12%30 SWISH-SPIT; +FERR1TAB52 PO; -HYDR200T3 PO; +LANC1MIS74; -MULT1TAB84 PO; +MYCO500T PO; -NEUR300C PO; +ONETTES4; +WHEEMIS3
--- NOTE | 2016-12-30 13:46 | PD ---
HPI Chief Complaint: Respiratory Symptoms Time Seen by Provider: 13:35 Travel History International Travel<30 days: No Contact w/Intl Traveler<30days: No Traveled to known affect area: No History of Present Illness HPI This is a 51-year-old female with history of chronic disease, interstitial lung disease, hypertension, lupus, COPD, diabetes who presents via EMS for evaluation. Past few days she has had fevers as high as 101, mild cough, sore throat, congestion, increased dyspnea with exertion. She's been expressing some tightness in her chest as well. She denies abdominal pain, nausea or vomiting, flank pain, dysuria, rash, recent travel. She is typically on 3 L of home oxygen. She has no other complaints at this time. PFSH Past Medical History Hx Anticoagulant Therapy: Yes (asa) Anemia: Yes Arthritis: Yes Asthma: Yes Autoimmune Disease: Yes (Lupus) Anxiety: Yes Depression: No Heart Rhythm Problems: No Cancer: No Cardiovascular Problems: Yes (pulmonary edema) High Cholesterol: No Chemotherapy: No Chest Pain: No Congestive Heart Failure: No COPD: Yes Cerebrovascular Accident: No Coronary Artery Disease: No Diabetes: Yes Patient Takes Glucophage: No Diminished Hearing: No Endocrine: Yes ( ) Gastrointestinal Disorders: Yes GERD: Yes Glaucoma: No Genitourinary: No Headaches: Yes Hepatitis: No Hiatal Hernia: No Heparin Induced Thrombocytopen: No Hypertension: Yes Immune Disorder: Yes (Lupus) Implanted Vascular Access Dvce: Yes Kidney Stones: No Musculoskeletal: Yes Neurologic: No Psychiatric: Yes Reproductive: No Respiratory: Yes Immunizations Current: No Migraines: Yes Radiation Therapy: No Renal Failure: No Seizures: No Sickle Cell Disease: No Sleep Apnea: Yes Thyroid Disease: No Ulcer: No ?: Not Menopausal: Yes : 3 Para: 1 Miscarriage: 2 Past Surgical History Abdominal Surgery: No AICD: No Arteriovenous Shunt: No Body Medical Devices: right ankle screws and plates Cardiac Surgery: No Ear Surgery: No Endocrine Surgery: No Eye Surgery: No Genitourinary Surgery: Yes (KIDNEY BIOPSY ) Gynecologic Surgery: Yes (ABLATION) Hysterectomy: Yes Insulin Pump: No Joint Replacement: No Neurologic Surgery: No Oral Surgery: No Pacemaker: No Thoracic Surgery: No Other Surgery: Yes (Ankle Surgery) Social History Alcohol Use: No Tobacco Use: No (quit 10 years ago) Substance Use: No Allergies-Medications (Allergen,Severity, Reaction): Coded Allergies: *MDRO Multi-Drug Resistant Organism (Verified Adverse Reaction, Unknown, ) 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 Pt does not require isolation for hx of MDRO prior to 05/11/15* Reported Meds & Prescriptions Reported Meds & Active Scripts Active Amoxicillin-Clavulanate 875-125 mg Tab 875 Mg PO BID 10 Days not for use in CrCl <30 mL/minute Onetouch Ultra Test Strips (Blood Glucose Test Strips) 1 Celeste Celeste 1 Strip .ROUTE DIRECTED Ventolin Hfa 18 GM Inh (Albuterol Sulfate) 90 Mcg/Act Aer 2 Puff INH Q4H PRN Albuterol Neb (Albuterol Sulfate) 2.5 Mg/3 Ml Neb 2.5 Mg NEB Q4HR NEB PRN Iron High-Potency (Ferrous Sulfate) 325 Mg Tab 325 Mg PO BID Singulair (Montelukast Sodium) 10 Mg Tab 10 Mg PO HS Protonix (Pantoprazole Sodium) 40 Mg Tab 40 Mg PO DAILY Mycophenolate (Mycophenolate Mofetil) 500 Mg Tab 500 Mg PO TID Novolog Inj (Insulin Aspart) 100 Unit/Ml Inj 35 Units SQ ACHS SLIDING SCALE Levemir Inj (Insulin Detemir) 1,000 unit/ 10 ML Vial 50 Units SQ BID Please tkae 50 units in am and 40 units in PM. Wheelchair (Device) 1 Mis Mis 1 Ea .ROUTE DIRECTED PRN Use for 99 years + Prednisone 10 Mg Tab 10 Mg PO DAILY Aspirin 81 Low Dose (Aspirin) 81 Mg Chew 81 Mg CHEW DAILY Gabapentin 800 Mg Tab 800 Mg PO BID Bumetanide 1 Mg Tab 1 Mg PO BID Onetouch Delica Lancets E 1 Mis Mis 1 Ea .ROUTE DIRECTED Duoneb (Ipratropium-Albuterol Neb) 0.5-2.5 Mg/3 Ml Neb 1 Nebule INH HS Oxygen tank (Oxygen) 1 Ea Tank 2 Liter VARSHA.CANULA CONTINUOUS Oxygen Concentrator Portable Gaseous 2 L/min via Nasal Cannula Continuous For 99 months Metolazone 5 Mg Tab 5 Mg PO TID Ferrous Sulfate 325 Mg Tab 325 Mg PO BID [Physical Therapy] Symbicort Inh (Budesonide/Formoterol Fumarate) 160-4.5 Mcg/Act Aero 2 Puff INH Q12HR Reported Aspirin 81 Mg Tabdr 81 Mg PO DAILY Review of Systems Except as stated in HPI: all other systems reviewed are Neg Physical Exam Narrative GENERAL: Well-developed well-nourished female in no acute distress. Her pulse oximetry is 96% on 3 L. SKIN: Warm and dry. HEAD: Atraumatic. Normocephalic. EYES: Pupils equal and round. No scleral icterus. No injection or drainage. ENT: No nasal bleeding or discharge. Mucous membranes pink and moist. NECK: Trachea midline. No JVD. CARDIOVASCULAR: Regular rate and rhythm. No murmur appreciated. RESPIRATORY: No accessory muscle use. Crackles noted at the bases. GASTROINTESTINAL: Abdomen soft, non-tender, nondistended. Hepatic and splenic margins not palpable. MUSCULOSKELETAL: No obvious deformities. No edema. NEUROLOGICAL: Awake and alert. No obvious cranial nerve deficits. Motor grossly within normal limits. Normal speech. PSYCHIATRIC: Appropriate mood and affect; insight and judgment normal. Data Data Last Documented VS Vital Signs Date Time Temp Pulse Resp B/P (MAP) Pulse Ox O2 Delivery O2 Flow Rate FiO2 12/30/16 13:45 24 97 Nasal Cannula 3.00 12/30/16 13:33 103 12/30/16 13:32 99.2 Orders Orders Electrocardiogram (12/30/16 13:38) Complete Blood Count With Diff (12/30/16 13:38) Comprehensive Metabolic Panel (12/30/16 13:38) Lactic Acid Sepsis Protocol (12/30/16 13:38) Magnesium (Mg) (12/30/16 13:38) Lipase (12/30/16 13:38) Ckmb (Isoenzyme) Profile (12/30/16 13:38) Troponin I (12/30/16 13:38) Urinalysis - C+S If Indicated (12/30/16 13:38) Blood Culture (12/30/16 13:38) Chest, Single Ap (12/30/16 13:38) Blood Glucose (12/30/16 13:38) Ecg Monitoring (12/30/16 13:38) Iv Access Insert/Monitor (12/30/16 13:38) Oximetry (12/30/16 13:38) Oxygen Administration (12/30/16 13:38) Influenzae A/B Antigen (12/30/16 13:38) Albuterol-Ipratropium Neb (Duoneb Neb) (12/30/16 14:00) Sodium Chlorid 0.9% 500 Ml Inj (Ns 500 M (12/30/16 14:45) Urine Culture (12/30/16 14:12) Ceftriaxone Inj (Rocephin Inj) (12/30/16 15:00) Azithromycin Inj (Zithromax Inj) (12/30/16 15:00) Admit Order (Ed Use Only) (12/30/16 15:25) Labs Laboratory Tests Test 12/30/16 13:47 12/30/16 14:12 White Blood Count 12.4 TH/MM3 Red Blood Count 3.72 MIL/MM3 Hemoglobin 9.9 GM/DL Hematocrit 31.6 % Mean Corpuscular Volume 85.2 FL Mean Corpuscular Hemoglobin 26.6 PG Mean Corpuscular Hemoglobin Concent 31.3 % Red Cell Distribution Width 15.2 % Platelet Count 262 TH/MM3 Mean Platelet Volume 8.0 FL Neutrophils (%) (Auto) 81.4 % Lymphocytes (%) (Auto) 9.9 % Monocytes (%) (Auto) 8.1 % Eosinophils (%) (Auto) 0.1 % Basophils (%) (Auto) 0.5 % Neutrophils # (Auto) 10.1 TH/MM3 Lymphocytes # (Auto) 1.2 TH/MM3 Monocytes # (Auto) 1.0 TH/MM3 Eosinophils # (Auto) 0.0 TH/MM3 Basophils # (Auto) 0.1 TH/MM3 CBC Comment DIFF FINAL Differential Comment Blood Urea Nitrogen 32 MG/DL Creatinine 1.66 MG/DL Random Glucose 158 MG/DL Total Protein 7.0 GM/DL Albumin 3.1 GM/DL Calcium Level 8.3 MG/DL Magnesium Level 1.6 MG/DL Alkaline Phosphatase 112 U/L Aspartate Amino Transf (AST/SGOT) 23 U/L Alanine Aminotransferase (ALT/SGPT) 30 U/L Total Bilirubin 0.4 MG/DL Sodium Level 140 MEQ/L Potassium Level 3.9 MEQ/L Chloride Level 104 MEQ/L Carbon Dioxide Level 25.1 MEQ/L Anion Gap 11 MEQ/L Estimat Glomerular Filtration Rate 39 ML/MIN Lactic Acid Level 3.6 mmol/L Total Creatine Kinase 59 U/L Troponin I 0.02 NG/ML Lipase 69 U/L Urine Color LIGHT-YELLOW Urine Turbidity CLEAR Urine pH 6.0 Urine Specific [place] 1.009 Urine Protein 30 mg/dL Urine Glucose (UA) NEG mg/dL Urine Ketones NEG mg/dL Urine Occult Blood NEG Urine Nitrite NEG Urine Bilirubin NEG Urine Urobilinogen LESS THAN 2.0 MG/DL Urine Leukocyte Esterase NEG Urine RBC LESS THAN 1 /hpf Urine WBC LESS THAN 1 /hpf Urine Squamous Epithelial Cells <1 /hpf Urine Bacteria RARE /hpf Urine Hyaline Casts 3 /lpf Urine Mucus FEW /lpf Microscopic Urinalysis Comment CATH-CULTURE IND MDM Medical Decision Making Medical Screen Exam Complete: Yes Emergency Medical Condition: Yes Medical Record Reviewed: Yes Differential Diagnosis Pneumonia, COPD exacerbation, influenza, UTI, pulmonary edema Narrative Course The patient was placed on ECG monitoring pulse oximetry. Plan is for basic lab work, chest x-ray, blood cultures, lactic acid, influenza antigen. The patient was given DuoNeb therapy. Lab work has been reviewed notable for WBC count of 12.4, GFR of 39 which appears to be her baseline, lactic acid of 3.6. Chest x-ray reveals patchy areas of consolidation similar to appearance in August. Clinically she appears to have pneumonia with crackles at the bases of her lungs, fever at home. She does meet sepsis criteria. The patient was given Rocephin and azithromycin. At this point, plan is to admit the patient for further evaluation and treatment. She is agreeable. Discussed with Dr. Clark is agreeable with admission to Dr. Rodríguez. Procedures EKG Prior to Arrival: Yes Sepsis Criteria SIRS Criteria (2 or more): Heart rate over 90, WBC > 37402, < 4000 or > 10% bands Sepsis Criteria (SIRS+source): Infect source susp/known Severe Sepsis (+one): Lactate >2 Criteria Outcome: Meets severe sepsis criteria Diagnosis Primary Impression: Pneumonia Qualified Codes: J18.9 - Pneumonia, unspecified organism Additional Impression: Sepsis Qualified Codes: A41.9 - Sepsis, unspecified organism Admitting Information Admitting Physician Requests: Admit Raymond Bishop Dec 30, 2016 13:46
[2016-12-30 14:08] LABS: AUTOMATED NEUTROPHIL # 10.1 TH/MM3 (1.8-7.7); BASOPHIL # 0.1 TH/MM3 (0-0.2); BASOPHIL % 0.5 % (0.0-2.0); EOSINOPHIL % 0.1 % (0.0-4.0); HEMATOCRIT 31.6 % (35.0-46.0); HEMO FLAGS DIFF FINAL; LYMPH % 9.9 % (9.0-44.0); LYMPHOCYTE # 1.2 TH/MM3 (1.0-4.8); MEAN CELL VOLUME 85.2 FL (80.0-100.0); MEAN CORPUSCULAR HEMOGLOBIN 26.6 PG (27.0-34.0); MEAN CORPUSCULAR HGB CONC 31.3 % (32.0-36.0); MONO % 8.1 % (0.0-8.0); NEUT % 81.4 % (16.0-70.0); PLATELET COUNT 262 TH/MM3 (150-450); RED BLOOD COUNT 3.72 MIL/MM3 (4.00-5.30); RED CELL DISTRIBUTION WIDTH 15.2 % (11.6-17.2); WHITE BLOOD COUNT 12.4 TH/MM3 (4.0-11.0)
[2016-12-30] MEDS: RESP: ALBUTEROL 2.5 MG/IPRATROPIUM 0.5 MG NEB (SCH) INH (14:21)
[2016-12-30 14:28] LABS: ALT (GPT) 30 U/L (10-53); ANION GAP 11 MEQ/L (5-15); AST (GOT) 23 U/L (15-37); BICARBONATE 25.1 MEQ/L (21.0-32.0); BLOOD UREA NITROGEN 32 MG/DL (7-18); CHLORIDE 104 MEQ/L (98-107); GLOMERULAR FILTRATION RATE 39 ML/MIN (>89); MAGNESIUM 1.6 MG/DL (1.5-2.5); POTASSIUM 3.9 MEQ/L (3.5-5.1); SODIUM (NA) 140 MEQ/L (136-145)
[2016-12-30 14:32] LABS: ALKALINE PHOSPHATASE 112 U/L (45-117); TOTAL BILIRUBIN ADULT 0.4 MG/DL (0.2-1.0)
[2016-12-30 14:33] LABS: CREATINE KINASE 59 U/L (26-192)
[2016-12-30 14:39] LABS: BACTERIA, URINE RARE /hpf; BLOOD, URINE NEG (NEG); COMMENT (UR) CATH-CULTURE IND; CULTURE IF INDICATED CATH CULTURE IND; GLUCOSE,URINE NEG (NEG); HYALINE CAST, URINE 3 /lpf (RARE); KETONE, URINE NEG (NEG); MUCUS URINE FEW /lpf (OCC); NITRITE,URINE NEG (NEG); SQUAMOUS EPITHELIAL CELL URINE <1 /hpf (0-5); URINE COLOR LIGHT-YELLOW (YELLW/STRAW)
[2016-12-30] MEDS ORDERED: SODIUM CHLORID 0.9% 500 ML INJ 500 ML IV ONE (14:45)
[2016-12-30] MEDS ORDERED: cefTRIAXone INJ 2,000 MG in SODIUM CHLORIDE 0.9% INJ 100 ML IV ONE (15:00)
[2016-12-30] MEDS ORDERED: AZITHROMYCIN INJ 500 MG in SODIUM CHLOR 0.9% 250 ML INJ 250 ML IV ONE (15:00)
--- NOTE | 2016-12-30 15:04 | RADRPT ---
EXAM DATE/TIME: 12/30/2016 14:32 [facility] COMPARISON: No previous studies available for comparison. INDICATIONS : Cough and shortness of breath. MEDICAL HISTORY : Hypertension. Chronic obstructive pulmonary disease. Diabetes. SURGICAL HISTORY : None. ENCOUNTER: Initial ACUITY: 3 days PAIN SCORE: 0/10 LOCATION: Bilateral chest FINDINGS: A single view of the chest demonstrates patchy airspace disease throughout the lungs similar to August. No significant pleural effusions identified. The cardiomediastinal contours are unremarkable. Osse ous structures are intact. CONCLUSION: Patchy areas of consolidation very similar to August. Erick Mack MD on December 30, 2016 at 15:02 Board Certified Radiologist. This report was verified electronically.
[2016-12-30 16:02] LABS: LACTIC ACID GHOST NOT REPORTABLE
--- NOTE | 2016-12-30 16:04 | HHI.HP ---
HPI Service [facility] Service Dr. Rodríguez, attending Primary Care Physician Dao , R3 MD Oniel Admission Diagnosis pneumonia, sepsis Diagnoses: International Travel<30 Days: No Contact w/Intl Traveler<30days: No History of Present Illness Patient is a 51 year old female with lupus, ILD, COPD, DM, CKD, on home oxygen 3L at baseline. She presented from home due to URI symptoms and fevers 101 at home, mild cough and sore throat. She reports no cough. She reports O@ sat at low at 77% at home. No recent travel. She does endorse chest pain with exertion , midsternal pressure of 5/10 intensity at its worst. It comes and goes. She notes her ankles are tight now, but no obvious swelling. She cannot lie flat to sleep, 4-5 pillow orthopnea. No PND. She endorses mild chronic HAs, on Tylenol PRN at home. In ED evaluation she is noted to have dyspnea on exertion but does have O2 sat 96% on O2 approximately 2 L. Evaluation also revealed the following: WBC 12.4 Lactate 3.6 Decreased GFR consistent with baseline CXR: consolidated changes similar from previous examination She is a patient of Dr. Engle, had URI symptoms on 11/28 with sick contacts, received Augmentin which she finished. She did not have any new symptoms aside from intermittent runny nose up until a few days ago. She decided not to come to ED yesterday due to improvement in SOB yesterday. She follows with many specialists including Dr. Larsen for rheumatology, who prescribes her prednisone and mycophenolate. Prednisone was decreased to reportedly 2.5 or 5mg daily (she has been taking 2.5mg but is thinking she misunderstood the dosing). (Jayla Clark MD R2) Review of Systems Constitutional: COMPLAINS OF: Fever (to 101 at home), Change in appetite ( decreased), DENIES: Chills Endocrine: DENIES: Abnorml menstrual pattern Eyes: DENIES: Blurred vision, Diplopia, Vision loss Ears, nose, mouth, throat: COMPLAINS OF: Nasal discharge (clear rhinorrhea), Hoarseness, DENIES: Tinnitus, Hearing loss, Oral lesions, Throat pain, Ear Pain Respiratory: COMPLAINS OF: Shortness of breath, DENIES: Cough, Hemoptysis, Sputum production Cardiovascular: COMPLAINS OF: Chest pain, Dyspnea on Exertion, Lower Extremity Edema, DENIES: Palpitations, Syncope, PND Gastrointestinal: DENIES: Abdominal pain, Black stools, Bloody stools, Constipation Genitourinary: COMPLAINS OF: Urgency (chronic), DENIES: Urinary frequency, Hematuria, Dysuria Musculoskeletal: DENIES: Joint pain, Muscle aches, Stiffness Integumentary: DENIES: Pruritus, Rash, Breast masses, Breast skin changes Hematologic/lymphatic: DENIES: Bruising, Lymphadenopathy Neurologic: COMPLAINS OF: Headache, Poor Balance Psychiatric: DENIES: Anxiety, Depression (Jayla Clark MD R2) Past Family Social History Past Medical History Systemic lupus erythematosus Interstitial lung disease - diagnosed with UIP in August 2016 Diabetes - insulin-dependent COPD - oxygen dependent Iron deficiency anemia GERD Past Surgical History Ankle surgery Lung biopsy 08/2016 Kidney biopsy Uterine embolization(?) for embolization Reported Medications Reported Meds & Active Scripts Active Onetouch Ultra Test Strips (Blood Glucose Test Strips) 1 Celeste Celeste 1 Strip .ROUTE DIRECTED Ventolin Hfa 18 GM Inh (Albuterol Sulfate) 90 Mcg/Act Aer 2 Puff INH Q4H PRN Albuterol Neb (Albuterol Sulfate) 2.5 Mg/3 Ml Neb 2.5 Mg NEB Q4HR NEB PRN Iron High-Potency (Ferrous Sulfate) 325 Mg Tab 325 Mg PO BID Singulair (Montelukast Sodium) 10 Mg Tab 10 Mg PO HS Protonix (Pantoprazole Sodium) 40 Mg Tab 40 Mg PO DAILY Mycophenolate (Mycophenolate Mofetil) 500 Mg Tab 500 Mg PO TID Novolog Inj (Insulin Aspart) 100 Unit/Ml Inj 35 Units SQ ACHS SLIDING SCALE Levemir Inj (Insulin Detemir) 1,000 unit/ 10 ML Vial 50 Units SQ BID Please tkae 50 units in am and 40 units in PM. Wheelchair (Device) 1 Mis Mis 1 Ea .ROUTE DIRECTED PRN Use for 99 years + Prednisone 10 Mg Tab 10 Mg PO DAILY Aspirin 81 Low Dose (Aspirin) 81 Mg Chew 81 Mg CHEW DAILY Gabapentin 800 Mg Tab 800 Mg PO BID Bumetanide 1 Mg Tab 1 Mg PO BID Onetouch Delica Lancets E 1 Mis Mis 1 Ea .ROUTE DIRECTED Duoneb (Ipratropium-Albuterol Neb) 0.5-2.5 Mg/3 Ml Neb 1 Nebule INH HS Oxygen tank (Oxygen) 1 Ea Tank 2 Liter VARSHA.CANULA CONTINUOUS Oxygen Concentrator Portable Gaseous 2 L/min via Nasal Cannula Continuous For 99 months Metolazone 5 Mg Tab 5 Mg PO TID [Physical Therapy] Symbicort Inh (Budesonide/Formoterol Fumarate) 160-4.5 Mcg/Act Aero 2 Puff INH Q12HR (Jayla Clark MD R2) Allergies: Coded Allergies: *MDRO Multi-Drug Resistant Organism (Verified Adverse Reaction, Unknown, ) 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 Pt does not require isolation for hx of MDRO prior to 05/11/15* Active Ordered Medications Inpatient Medications Albuterol/ Ipratropium (Duoneb Neb) 1 ampule Q15M INH Last administered on 12/30 14:21; Start 12/30/16 at 14:00; Stop 12/30/16 at 14:31; Status DC Azithromycin 500 mg/Sodium Chloride 250 ml @ 250 mls/hr ONCE ONCE IV Last administered on 12/30/16 15:31; Start 12/30/16 at 15:00; Stop 12/30/16 at 15:59 Ceftriaxone Sodium 2000 mg/ Sodium Chloride 100 ml @ 200 mls/hr ONCE ONCE IV Last administered on 12/30/16 15:31; Start 12/30/16 at 15:00; Stop 12/30/16 at 15:29; Status DC Sodium Chloride 500 ml @ 500 mls/hr BOLUS ONCE IV Last administered on 15:30; Start 12/30/16 at 14:45; Stop 12/30/16 at 15:44 Family History Father: ESRD, DM Mother: Lupus Sister: seizures, CVA Sister: bone problems Social History Tobacco: quit 10 years, 1PPD x 20 years Alcohol: denies Illicit: denies Home oxygen at 3L baseline Uses walker, cane for ambulation PRN Lives alone, "a few steps" at home, has assistive railing Full code per discussion 12/30 (Jayla Clark MD R2) Physical Exam Vital Signs Vital Signs Date Time Temp Pulse Resp B/P (MAP) Pulse Ox O2 Delivery O2 Flow Rate FiO2 12/30/16 15:37 92 18 107/57 (74) 98 Nasal Cannula 3.00 12/30/16 13:45 24 97 Nasal Cannula 3.00 12/30/16 13:45 97 Nasal Cannula 3.00 12/30/16 13:33 103 26 96 Nasal Cannula 3.00 12/30/16 13:32 99.2 106 26 121/69 (86) 96 Nasal Cannula 3.00 12/30/16 13:09 110/50 (70) 12/30/16 13:08 98.9 109 18 80/53 (62) 82 Physical Exam GENERAL: Patient is an obese every Filipino female lying in bed with nasal cannula in place. She is in no apparent distress. SKIN: Warm and dry. No obvious rashes or ecchymoses. HEAD: Atraumatic. Normocephalic. EYES: Pupils equal and round. No scleral icterus. No injection or drainage. No conjunctival injection noted. ENT: No nasal bleeding or discharge. Mucous membranes pink and moist. Mild rhinorrhea, clear, noted NECK: Trachea midline. No JVD. CARDIOVASCULAR: Regular rate and rhythm. No obvious murmurs on auscultation. RESPIRATORY: No accessory muscle use. Bilateral lung be with coarse crackles at the bases bilaterally. Breath sounds equal bilaterally. GASTROINTESTINAL: Abdomen soft, non-tender, nondistended. Hepatic and splenic margins not palpable. MUSCULOSKELETAL: Extremities without clubbing, cyanosis, or edema. No obvious deformities. NEUROLOGICAL: Awake and alert. No obvious cranial nerve deficits. Motor grossly within normal limits. 5/5 strength in the arms and legs. Normal speech. PSYCHIATRIC: Appropriate mood and affect; insight and judgment normal. Laboratory Laboratory Tests Test 12/30/16 13:47 12/30/16 14:12 White Blood Count 12.4 Red Blood Count 3.72 Hemoglobin 9.9 Hematocrit 31.6 Mean Corpuscular Volume 85.2 Mean Corpuscular Hemoglobin 26.6 Mean Corpuscular Hemoglobin Concent 31.3 Red Cell Distribution Width 15.2 Platelet Count 262 Mean Platelet Volume 8.0 Neutrophils (%) (Auto) 81.4 Lymphocytes (%) (Auto) 9.9 Monocytes (%) (Auto) 8.1 Eosinophils (%) (Auto) 0.1 Basophils (%) (Auto) 0.5 Neutrophils # (Auto) 10.1 Lymphocytes # (Auto) 1.2 Monocytes # (Auto) 1.0 Eosinophils # (Auto) 0.0 Basophils # (Auto) 0.1 CBC Comment DIFF FINAL Differential Comment Blood Urea Nitrogen 32 Creatinine 1.66 Random Glucose 158 Total Protein 7.0 Albumin 3.1 Calcium Level 8.3 Magnesium Level 1.6 Alkaline Phosphatase 112 Aspartate Amino Transf (AST/SGOT) 23 Alanine Aminotransferase (ALT/SGPT) 30 Total Bilirubin 0.4 Sodium Level 140 Potassium Level 3.9 Chloride Level 104 Carbon Dioxide Level 25.1 Anion Gap 11 Estimat Glomerular Filtration Rate 39 Lactic Acid Level 3.6 Total Creatine Kinase 59 Troponin I 0.02 Lipase 69 Urine Color LIGHT-YELLOW Urine Turbidity CLEAR Urine pH 6.0 Urine Specific [place] 1.009 Urine Protein 30 Urine Glucose (UA) NEG Urine Ketones NEG Urine Occult Blood NEG Urine Nitrite NEG Urine Bilirubin NEG Urine Urobilinogen LESS THAN 2.0 Urine Leukocyte Esterase NEG Urine RBC LESS THAN 1 Urine WBC LESS THAN 1 Urine Squamous Epithelial Cells <1 Urine Bacteria RARE Urine Hyaline Casts 3 Urine Mucus FEW Microscopic Urinalysis Comment CATH-CULTURE IND Date/Time Source Procedure Growth Status 12/30/16 13:47 Blood Peripheral Aerobic Blood Culture Pending Received 12/30/16 13:47 Blood Peripheral Anaerobic Blood Culture Pending Received 12/30/16 14:08 Nasal Aspirate Influenza Types A,B Antigen (MARY ELLEN) - Final NEGATIVE FOR FLU A AND B ANTIGEN.... Complete 12/30/16 14:12 Urine Catheterized Urine Urine Culture Pending Received (Jayla Clark MD R2) Result Diagram: 12/30/16 1347 12/30/16 1347 Imaging CXR: patchy areas of consolidation similar to imaging in August 2016 (Jayla Clark MD R2) Caprini VTE Risk Assessment Caprini VTE Risk Assessment: Mod/High Risk (score >= 2) Caprini Risk Assessment Model Point Value = 1 Point Value = 2 Point Value = 3 Point Value = 5 Age 41-60 Minor surgery BMI > 25 kg/m2 Swollen legs Varicose veins or History of unexplained or recurrent spontaneous Oral contraceptives or hormone replacement Sepsis (< 1 month) Serious lung disease, including pneumonia (< 1 month) Abnormal pulmonary function Acute myocardial infarction Congestive heart failure (< 1 month) History of inflammatory bowel disease Medical patient at bed rest Age 61-74 Arthroscopic surgery Major open surgery (> 45 min) Laparoscopic surgery (> 45 min) Malignancy Confined to bed (> 72 hours) Immobilizing plaster cast Central venous access Age >= 75 History of VTE Family history of VTE Factor V Leiden Prothrombin [id number] Lupus anticoagulant Anticardiolipin antibodies Elevated serum homocysteine Heparin-induced thrombocytopenia Other congenital or acquired thrombophilia Stroke (< 1 month) Elective arthroplasty Hip, pelvis, or leg fracture Acute spinal cord injury (< 1 month) Prophylaxis Regimen Total Risk Factor Score Risk Level Prophylaxis Regimen 0-1 Low Early ambulation 2 Moderate Order ONE of the following: *Sequential Compression Device (SCD) *Heparin 5000 units SQ BID 3-4 Higher Order ONE of the following medications: *Heparin 5000 units SQ TID *Enoxaparin/Lovenox 40 mg SQ daily (WT < 150 kg, CrCl > 30 mL/min) *Enoxaparin/Lovenox 30 mg SQ daily (WT < 150 kg, CrCl > 10-29 mL/min) *Enoxaparin/Lovenox 30 mg SQ BID (WT < 150 kg, CrCl > 30 mL/min) AND/OR *Sequential Compression Device (SCD) 5 or more Highest Order ONE of the following medications: *Heparin 5000 units SQ TID (Preferred with Epidurals) *Enoxaparin/Lovenox 40 mg SQ daily (WT < 150 kg, CrCl > 30 mL/min) *Enoxaparin/Lovenox 30 mg SQ daily (WT < 150 kg, CrCl > 10-29 mL/min) *Enoxaparin/Lovenox 30 mg SQ BID (WT < 150 kg, CrCl > 30 mL/min) AND *Sequential Compression Device (SCD) (Jayla Clark MD R2) Assessment and Plan Assessment and Plan 51F with extensive medical history including lupus, ILD, COPD, DM, CKD, on home oxygen 3L at baseline. She presents with upper respiratory symptoms with history concerning for PNA. She is notably on mycophenolate which may portend weakened immune system. Admit to inpatient for further management. Code Status Full Code Discussed Condition With ROWENA Reyes (Jayla Clark MD R2) Attending Attestation Pt known to me from prior hospitalizations, Her interstitial lung disease is related to her lupus. Fortunately, she is much better overall with her immunotherapy and is now stable without acute worsening of her renal and pulmonary problems that she had before whenever she was weaned off prednisone. Her PFTs showed restrictive lung disease and she has never been a smoker so she does not have true COPD. However, because of her lupus she has been very steroid responsive. (Noreen Rodríguez MD) Problem List: (1) Community acquired pneumonia ICD Codes: J18.9 - Pneumonia, unspecified organism Plan: Patient presents with URI and decreased immune system, with symptoms concerning for CAP. Patient is meeting sepsis criteria on admission by HR and RR criteria, with WBC 12.4. * Rocephin and Azithromycin (12/30 - ) * Vital signs q4hr per protocol * Added UA with urine Legionella and Pneumococcal Ag * Duonebs q4hr * Continue home medications - Singulair * Incentive spirometry * Supplemental oxygen with goal O2 sat >92% (on baseline home O2 @ 3L) * Holding mycophenolate due to side effect of ILD and immunosuppressive properties (2) Type 2 diabetes, controlled, with neuropathy ICD Codes: E11.40 - Type 2 diabetes mellitus with diabetic neuropathy, unspecified Status: Acute Plan: Chronic. On Levemir 50BID per EMR. Will continue Levemir but at reduced dose of 25BID for now, titrate as appropriate. Supplemental Novolog PRN with schedule Accucheks. Hypoglycemia protocol if needed. A1c ordered (3) CKD (chronic kidney disease) stage 3, GFR 30-59 ml/min ICD Codes: N18.3 - Chronic kidney disease, stage 3 (moderate) Status: Acute Plan: GFR at baseline. Monitor BMP daily (4) Anemia ICD Codes: D64.9 - Anemia, unspecified Status: Chronic Plan: Chronic. Stable. Continue to monitor (5) GERD (gastroesophageal reflux disease) ICD Codes: K21.9 - Gastro-esophageal reflux disease without esophagitis Status: Chronic Plan: Chronic, stable. Continue Protonix 40mg PO daily (6) Interstitial lung disease ICD Codes: J84.9 - Interstitial pulmonary disease, unspecified Status: Chronic Plan: Continue mycophenolate per home home (7) Lupus ICD Codes: M32.9 - Systemic lupus erythematosus, unspecified Status: Acute Plan: Sees Dr. Larsen, on prednisone (patient unsure of dose). Will continue prednisone at 10mg daily per med rec (8) Nutrition, metabolism, and development symptoms ICD Codes: R63.8 - Other symptoms and signs concerning food and fluid intake Status: Acute Plan: Fluids: holding for now, PO hydration Electrolytes: monitor and replete as needed Nutrition: renal diet DVT Prophylaxis: Early ambulation. Heparin 5000U sq q12hr GI Prophylaxis: Home dose Protonix (Jayla Clark MD R2) Physician Certification 2 Midnight Certification Type: Admission for Inpatient Services Order for Inpatient Services The services are ordered in accordance with Medicare regulations or non- Medicare payer requirements, as applicable. In the case of services not specified as inpatient-only, they are appropriately provided as inpatient services in accordance with the 2-midnight benchmark. Estimated LOS (days): 3 days is the estimated time the patient will need to remain in the hospital, assuming treatment plan goals are met and no additional complications. Post-Hospital Plan: Not yet determined (Jayla Clark MD R2) Jayla Clark MD R2 Dec 30, 2016 16:04 Noreen Rodríguez MD Dec 31, 2016 10:43
[2016-12-30] MEDS ORDERED: LACTULOSE SYRUP 20 GM/30 ML CUP PO PRN (16:15)
[2016-12-30] MEDS ORDERED: NALOXONE HCL 0.4 MG/ML AMP IV PUSH PRN (16:15)
[2016-12-30] MEDS ORDERED: MAGNESIUM HYDROXIDE SUSP 30 ML CUP PO PRN (16:15)
[2016-12-30] MEDS ORDERED: ONDANSETRON HCL 4 MG/2 ML VIAL IVP PRN (16:15)
[2016-12-30] MEDS ORDERED: BISACODYL 10 MG SUPP RECTAL PRN (16:15)
[2016-12-30] MEDS ORDERED: SODIUM CHLORIDE 0.9% FLUSH 10 ML FLUSH IV FLUSH PRN (16:15)
[2016-12-30] MEDS ORDERED: SENNOSIDES 8.6 MG TAB PO PRN (16:15)
[2016-12-30] MEDS: ACETAMINOPHEN 325 MG TAB PO PRN (16:46)
[2016-12-30] MEDS: HEPARIN SODIUM - SQ 10,000 UNITS/ML VIAL SQ SCH (18:18)
[2016-12-30] MEDS: METOLAZONE 5 MG TAB PO SCH (18:18)
[2016-12-30] MEDS: DOCUSATE SODIUM 50 MG/SENNA 8.6 MG TAB PO SCH (21:02)
[2016-12-30] MEDS: BUDESONIDE-FORMOTEROL 160/4.5 MCG INHALER INH SCH (21:02)
[2016-12-30] MEDS: GABAPENTIN 400 MG CAP PO SCH (21:02)
[2016-12-30] MEDS: MONTELUKAST SODIUM 10 MG TAB PO SCH (21:02)
[2016-12-30] MEDS: SODIUM CHLORIDE 0.9% FLUSH 10 ML FLUSH IV FLUSH SCH (21:03)
[2016-12-30] MEDS: BUMETANIDE 1 MG TAB PO SCH (21:03)
[2016-12-30] MEDS: INSULIN DETEMIR 100 UNITS/ML VIAL SQ SCH (21:49)
[2016-12-30 22:14] LABS: CREATINE KINASE 52 U/L (26-192)
[2016-12-31] VITALS (11 sets, daily range): BP systolic 98–112; BP diastolic 56–67; PULSE 81–103; RESP 16–21; TEMP 97.7–98.6; O2SAT 92–99
[2016-12-31] MEDS: RESP: ALBUTEROL 2.5 MG/IPRATROPIUM 0.5 MG NEB (SCH) NEB ×6 (00:41→20:46)
[2016-12-31 03:42] LABS: AUTOMATED NEUTROPHIL # 6.1 TH/MM3 (1.8-7.7); BASOPHIL # 0.1 TH/MM3 (0-0.2); BASOPHIL % 0.7 % (0.0-2.0); EOSINOPHIL # 0.2 TH/MM3 (0-0.4); EOSINOPHIL % 1.8 % (0.0-4.0); HEMATOCRIT 28.4 % (35.0-46.0); HEMO FLAGS DIFF FINAL; LYMPH % 14.3 % (9.0-44.0); LYMPHOCYTE # 1.2 TH/MM3 (1.0-4.8); MEAN CELL VOLUME 84.1 FL (80.0-100.0); MEAN CORPUSCULAR HEMOGLOBIN 26.5 PG (27.0-34.0); MEAN CORPUSCULAR HGB CONC 31.5 % (32.0-36.0); MONO % 8.6 % (0.0-8.0); NEUT % 74.6 % (16.0-70.0); PLATELET COUNT 257 TH/MM3 (150-450); RED BLOOD COUNT 3.38 MIL/MM3 (4.00-5.30); RED CELL DISTRIBUTION WIDTH 15.3 % (11.6-17.2); WHITE BLOOD COUNT 8.2 TH/MM3 (4.0-11.0)
[2016-12-31 03:50] LABS: ALT (GPT) 25 U/L (10-53); ANION GAP 8 MEQ/L (5-15); AST (GOT) 19 U/L (15-37); BICARBONATE 29.4 MEQ/L (21.0-32.0); BLOOD UREA NITROGEN 26 MG/DL (7-18); CHLORIDE 103 MEQ/L (98-107); GLOMERULAR FILTRATION RATE 49 ML/MIN (>89); POTASSIUM 3.8 MEQ/L (3.5-5.1); SODIUM (NA) 140 MEQ/L (136-145)
[2016-12-31 03:52] LABS: ALKALINE PHOSPHATASE 102 U/L (45-117); TOTAL BILIRUBIN ADULT 0.2 MG/DL (0.2-1.0)
[2016-12-31 04:20] LABS: CREATINE KINASE 60 U/L (26-192)
[2016-12-31] MEDS: HEPARIN SODIUM - SQ 10,000 UNITS/ML VIAL SQ SCH ×2 (06:14→17:03)
[2016-12-31] MEDS: ACETAMINOPHEN 325 MG TAB PO PRN ×3 (06:16→21:59)
[2016-12-31] MEDS: PANTOPRAZOLE SOD 40 MG DELAYED RELEASE TAB PO SCH (09:00)
[2016-12-31] MEDS ORDERED: MYCOPHENOLATE MOFETIL 500 MG TAB PO SCH (09:00)
[2016-12-31] MEDS: DOCUSATE SODIUM 50 MG/SENNA 8.6 MG TAB PO SCH ×2 (09:00→21:00)
[2016-12-31] MEDS: predniSONE 10 MG TAB PO SCH (09:00)
[2016-12-31] MEDS: BUMETANIDE 1 MG TAB PO SCH ×2 (09:00→21:55)
[2016-12-31] MEDS: METOLAZONE 5 MG TAB PO SCH ×3 (09:00→17:03)
[2016-12-31] MEDS: INSULIN DETEMIR 100 UNITS/ML VIAL SQ SCH ×2 (09:01→21:56)
[2016-12-31] MEDS: BUDESONIDE-FORMOTEROL 160/4.5 MCG INHALER INH SCH ×2 (09:01→21:59)
[2016-12-31] MEDS: GABAPENTIN 400 MG CAP PO SCH ×2 (09:01→21:55)
[2016-12-31] MEDS: AZITHROMYCIN 250 MG TAB PO SCH (09:01)
[2016-12-31] MEDS: ASPIRIN 81 MG CHEW TAB CHEW SCH (09:01)
[2016-12-31] MEDS: SODIUM CHLORIDE 0.9% FLUSH 10 ML FLUSH IV FLUSH SCH ×2 (09:02→21:59)
--- NOTE | 2016-12-31 09:47 | HHI.FPPN ---
Subjective Remarks Ms See is feeling much improved this am. She has been remarkably better ever since she went on good strong immunosuppressants from her [employer]. She has not had the respiratory and renal failure that so prominently marked her prior hospitalizations. However, she had an elevated lactic acid and was hypotensive when she presented to the hospital. Her meds leave her immune system weakened so will be sure she is adequately covered for unusual infections if needed. fortunately her prior ROS that were positive from lupus are fine now. She complained of severe acute SOB before her hospitalization plus fever and cough. Otherwise she has a negative ROS today except fatigue. Objective Vitals Vital Signs Date Time Temp Pulse Resp B/P (MAP) Pulse Ox O2 Delivery O2 Flow Rate FiO2 12/31/16 08:00 98.1 103 18 107/64 (78) 92 12/31/16 07:23 94 Nasal Cannula 3.00 12/31/16 04:00 Nasal Cannula 3.00 12/31/16 04:00 98.1 81 21 98/58 (71) 95 12/31/16 00:43 93 Nasal Cannula 3.00 12/31/16 00:00 97.7 85 16 109/56 (73) 97 12/31/16 00:00 Nasal Cannula 3.00 12/30/16 20:00 98.0 82 19 154/95 (114) 94 12/30/16 20:00 Nasal Cannula 3.00 12/30/16 18:00 98.5 89 18 106/60 (75) 98 12/30/16 15:37 92 18 107/57 (74) 98 Nasal Cannula 3.00 12/30/16 13:45 24 97 Nasal Cannula 3.00 12/30/16 13:45 97 Nasal Cannula 3.00 12/30/16 13:33 103 26 96 Nasal Cannula 3.00 12/30/16 13:32 99.2 106 26 121/69 (86) 96 Nasal Cannula 3.00 12/30/16 13:09 110/50 (70) 12/30/16 13:08 98.9 109 18 80/53 (62) 82 I/O 12/30/16 12/30/16 12/30/16 12/31/16 12/31/16 12/31/16 07:00 15:00 23:00 07:00 15:00 23:00 Intake Total 700 ml Output Total 790 ml Balance 700 ml -790 ml Intake IV Total 700 ml Output Urine Total 790 ml # Bowel Movements 0 Result Diagram: 12/31/1632312/31/16323 Objective Remarks GENERAL: Patient is an obese female lying in bed with nasal cannula in place. She is in no apparent distress at this time She reports feeling better today with her breathing and even requests to go home soon. SKIN: Warm and dry. No obvious rashes or ecchymoses. HEAD: Atraumatic. Normocephalic. EYES: Pupils equal and round. No scleral icterus. No injection or drainage. No conjunctival injection noted. ENT: No nasal bleeding or discharge. Mucous membranes pink and moist. Mild rhinorrhea, clear, noted NECK: Trachea midline. No JVD. CARDIOVASCULAR: Regular rate and rhythm. No obvious murmurs on auscultation. RESPIRATORY: No accessory muscle use. Bilateral lung be with coarse crackles at the bases bilaterally chronically. Breath sounds equal bilaterally. Moving air well GASTROINTESTINAL: Abdomen soft, non-tender, nondistended. Hepatic and splenic margins not palpable. MUSCULOSKELETAL: Extremities without clubbing, cyanosis, or edema. No obvious deformities. NEUROLOGICAL: Awake and alert. No obvious cranial nerve deficits. Motor grossly within normal limits. 5/5 strength in the arms and legs. Normal speech. PSYCHIATRIC: Appropriate mood and affect; insight and judgment normal. Urinary Catheter: No Vascular Central Line Catheter: No A/P Assessment and Plan 51F with extensive medical history including lupus, ILD, DM, CKD, on home oxygen 3L at baseline. She presents with upper respiratory symptoms with history concerning for PNA. She is notably on mycophenolate which may portend weakened immune system. Admit to inpatient for further management. Discharge Planning Pt wants to go home whenever possible Problem List: (1) Community acquired pneumonia ICD Codes: J18.9 - Pneumonia, unspecified organism Status: Acute Plan: Patient presents with URI and decreased immune system, with symptoms concerning for CAP. Patient is meeting sepsis criteria on admission by HR and RR criteria, with WBC 12.4. * Rocephin and Azithromycin (12/30 - ) * Vital signs q4hr per protocol * Added UA with urine Legionella and Pneumococcal Ag * Duonebs q4hr * Continue home medications - Singulair * Incentive spirometry * Supplemental oxygen with goal O2 sat >92% (on baseline home O2 @ 3L) * Holding mycophenolate due to side effect of ILD and immunosuppressive properties * will ask ID for any advice on abx with mycophenolate. would like to keep her on that med as she has such aggressive lupus she has had multiple bouts of hypoxia and renal failure when untreated for lupus (2) Type 2 diabetes, controlled, with neuropathy ICD Codes: E11.40 - Type 2 diabetes mellitus with diabetic neuropathy, unspecified Status: Chronic Plan: Chronic. On Levemir 50 BID per EMR. Will continue Levemir but at reduced dose of 25 BID for now, titrate as appropriate. Supplemental Novolog PRN with schedule Accucheks. Hypoglycemia protocol if needed. A1c ordered (3) CKD (chronic kidney disease) stage 3, GFR 30-59 ml/min ICD Codes: N18.3 - Chronic kidney disease, stage 3 (moderate) Status: Acute Plan: GFR at baseline. Monitor BMP daily she is stable now with her renal fxn on immunosuppressants as her acute events of renal failure were lupus related (4) Anemia ICD Codes: D64.9 - Anemia, unspecified Status: Chronic Plan: Chronic. Stable. Continue to monitor will Hemoccult stools (5) GERD (gastroesophageal reflux disease) ICD Codes: K21.9 - Gastro-esophageal reflux disease without esophagitis Status: Chronic Plan: Chronic, stable. Continue Protonix 40mg PO daily (6) Interstitial lung disease ICD Codes: J84.9 - Interstitial pulmonary disease, unspecified Status: Chronic Plan: Continue mycophenolate per home, start back yosi as this is lupus related (7) Lupus ICD Codes: M32.9 - Systemic lupus erythematosus, unspecified Status: Acute Plan: Sees Dr. Larsen, on prednisone (patient unsure of dose). Will continue prednisone at 10mg daily per med rec. she needs to be back on her strong immunosuppressants YOSI as her lupus is very aggressive (8) Nutrition, metabolism, and development symptoms ICD Codes: R63.8 - Other symptoms and signs concerning food and fluid intake Status: Acute Plan: Fluids: holding for now, PO hydration Electrolytes: monitor and replete as needed Nutrition: diabetic diet DVT Prophylaxis: Early ambulation. Heparin 5000U sq q12hr GI Prophylaxis: Home dose Protonix Problem Qualifiers (1) Anemia: Qualified Codes: D64.89 - Other specified anemias (2) Lupus: Qualified Codes: M32.13 - Lung involvement in systemic lupus erythematosus Noreen Rodríguez MD Dec 31, 2016 09:47
--- NOTE | 2016-12-31 14:17 | PD.ID.CON ---
History of Present Illness Service ID Consult Requested By Dr.Kara Clark Reason for Consult Evaluation and Mment of Sepsis, Pneumonia in an immune compromised patient. Primary Care Physician Mike Dc MD Diagnoses: History of Present Illness is a 51 y/o AAF with PMHx significant for COPD, Pulmonary fibrosis, sleep apnea, obesity on home oxygen 3L NC and CPAP at night. Patient reports trouble sleeping and often sits up late night propped up due to shortness of breath and insomnia. She reports recent episode of nasal and oral regurgitation of liquids tasting sour. This occurred prior to the fevers starting. She reports she has GERD and prior EGD in 2013. She reports she is on steroids and lately GERD worse and planned on seeing GI. She also reports lower GI bleed/ occult blood and her sensory scientist asked her to see GI last week. Before she could schedule an appointment she was admitted to hospital with fevers and detected to have pneumonia. She is an immune compromised host with pulmonary fibrosis who takes steroids and mycophenolate. She She denies any nausea, vomiting, or abdominal pain. She now reports she has not seen any blood in her stool lately and has not had any black tarry stools. She has been on prednisone and aspirin at home. Infectious disease workup on admission pending. Blood cultures negative so far. She denies any prior PCP history but is at risk due to prolonged steroids and other immune suppressants. Clinically, she reports since start of antibiotics she is feeling better slightly. She has ongoing shortness of breath but thinks she is almost close to her baseline. She reports some cough with expectoration but cannot remember color. She reports fevers as high as 101 F prior to admission.ID consulted for evaluation and Mment of Sepsis, Pneumonia in an IC host. Review of Systems Constitutional: COMPLAINS OF: Fatigue, Fever, Chills, Change in appetite, DENIES: Diaphoretic episodes, Weight gain, Weight loss, Dizziness, Night Sweats Endocrine: DENIES: Abnorml menstrual pattern, Heat/cold intolerance, Polydipsia , Polyuria, Polyphagia Eyes: DENIES: Blurred vision, Diplopia, Eye inflammation, Eye pain, Vision loss , Photosensitivity, Double Vision Ears, nose, mouth, throat: DENIES: Tinnitus, Hearing loss, Vertigo, Nasal discharge, Oral lesions, Throat pain, Hoarseness, Ear Pain, Running Nose, Epistaxis, Sinus Pain, Toothache, Odynophagia Respiratory: COMPLAINS OF: Cough, Snoring, Sputum production, Shortness of breath, DENIES: Apneas, Wheezing, Hemoptysis Cardiovascular: COMPLAINS OF: Dyspnea on Exertion, PND, Lower Extremity Edema, Orthopnea, DENIES: Chest pain, Palpitations, Syncope, Claudication Gastrointestinal: DENIES: Abdominal pain, Black stools, Bloody stools, Constipation, Diarrhea, Nausea, Vomiting, Difficulty Swallowing, Anorexia Genitourinary: DENIES: Abnormal vaginal bleeding, Dysmenorrhea, Dyspareunia, Sexual dysfunction, Urinary frequency, Urinary incontinence, Urgency, Hematuria , Dysuria, Nocturia, Vaginal discharge Musculoskeletal: DENIES: Joint pain, Muscle aches, Stiffness, Joint Swelling, Back pain, Neck pain Integumentary: DENIES: Abnormal pigmentation, Pruritus, Rash, Nail changes, Breast masses, Breast skin changes, Nipple discharge Hematologic/lymphatic: DENIES: Bruising, Lymphadenopathy Immunologic/allergic: DENIES: Eczema, Urticaria Neurologic: DENIES: Abnormal gait, Headache, Localized weakness, Paresthesias, Seizures, Speech Problems, Tremor, Poor Balance Psychiatric: DENIES: Anxiety, Confusion, Mood changes, Depression, Hallucinations, Agitation, Suicidal Ideation, Homicidal Ideation, Delusions Except as stated in HPI: all other systems reviewed are Neg Past Family Social History Allergies: Coded Allergies: *MDRO Multi-Drug Resistant Organism (Verified Adverse Reaction, Unknown, ) 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 Pt does not require isolation for hx of MDRO prior to 05/11/15* Past Medical History GERD Nonspecific colitis Lupus Pulmonary fibrosis DM COPD SHAKIR Recent hemoccult positive stool YOJANA on CPAP at home. Baseline Oxygen at home 3L NC. Past Surgical History EGD/Colonoscopy Ankle surgery right Uterine ablation Kidney bx Lung bx Reported Medications I attest that I obtained, updated, reviewed the patients home meds and current medications (for name, frequency, dose, route of administration of medications). Reported Meds & Active Scripts Active Onetouch Ultra Test Strips (Blood Glucose Test Strips) 1 Celeste Celeste 1 Strip .ROUTE DIRECTED Ventolin Hfa 18 GM Inh (Albuterol Sulfate) 90 Mcg/Act Aer 2 Puff INH Q4H PRN Albuterol Neb (Albuterol Sulfate) 2.5 Mg/3 Ml Neb 2.5 Mg NEB Q4HR NEB PRN Iron High-Potency (Ferrous Sulfate) 325 Mg Tab 325 Mg PO BID Singulair (Montelukast Sodium) 10 Mg Tab 10 Mg PO HS Protonix (Pantoprazole Sodium) 40 Mg Tab 40 Mg PO DAILY Mycophenolate (Mycophenolate Mofetil) 500 Mg Tab 500 Mg PO TID Novolog Inj (Insulin Aspart) 100 Unit/Ml Inj 35 Units SQ ACHS SLIDING SCALE Levemir Inj (Insulin Detemir) 1,000 unit/ 10 ML Vial 50 Units SQ BID Please tkae 50 units in am and 40 units in PM. Wheelchair (Device) 1 Mis Mis 1 Ea .ROUTE DIRECTED PRN Use for 99 years + Prednisone 10 Mg Tab 10 Mg PO DAILY Aspirin 81 Low Dose (Aspirin) 81 Mg Chew 81 Mg CHEW DAILY Gabapentin 800 Mg Tab 800 Mg PO BID Bumetanide 1 Mg Tab 1 Mg PO BID Onetouch Delica Lancets E 1 Mis Mis 1 Ea .ROUTE DIRECTED Duoneb (Ipratropium-Albuterol Neb) 0.5-2.5 Mg/3 Ml Neb 1 Nebule INH HS Oxygen tank (Oxygen) 1 Ea Tank 2 Liter VARSHA.CANULA CONTINUOUS Oxygen Concentrator Portable Gaseous 2 L/min via Nasal Cannula Continuous For 99 months Metolazone 5 Mg Tab 5 Mg PO TID [Physical Therapy] Symbicort Inh (Budesonide/Formoterol Fumarate) 160-4.5 Mcg/Act Aero 2 Puff INH Q12HR Active Ordered Medications Current Medications Medications (Trade) Dose Ordered Sig/Iván Route Start Time Stop Time Status Last Admin (NS Flush) 2 ml UNSCH PRN IV FLUSH 12/30/16 16:15 (NS Flush) 2 ml BID IV FLUSH 12/30/16 21:00 12/31/16 09:02 (Zofran Inj) 4 mg Q6H PRN IVP 12/30/16 16:15 (Ambien) 5 mg HS PRN PO 12/30/16 16:15 (Heparin Inj) 5,000 units Q12H SQ 12/30/16 17:00 Future Hold 12/31/16 17:03 (Narcan Inj) 0.4 mg UNSCH PRN IV PUSH 12/30/16 16:15 (Galina-Colace) 1 tab BID PO 12/30/16 21:00 12/31/16 09:00 (Milk Of Magnesia Liq) 30 ml Q12H PRN PO 12/30/16 16:15 (Senokot) 17.2 mg Q12H PRN PO 12/30/16 16:15 (Dulcolax Supp) 10 mg DAILY PRN RECTAL 12/30/16 16:15 (Lactulose Liq) 30 ml DAILY PRN PO 12/30/16 16:15 (Tylenol) 650 mg Q4H PRN PO 12/30/16 16:15 12/31/16 12:54 (Aspirin Chew) 81 mg DAILY CHEW 12/31/16 09:00 12/31/16 09:01 (Symbicort 160-4.5 Inh) 2 puff Q12HR INH 12/30/16 21:00 12/31/16 09:01 (Bumetanide) 1 mg BID PO 12/30/16 21:00 12/31/16 09:00 (Neurontin) 800 mg BID PO 12/30/16 21:00 12/31/16 09:01 (Zaroxolyn) 5 mg TID PO 12/30/16 18:00 12/31/16 17:03 (Singulair) 10 mg HS PO 12/30/16 21:00 12/30/16 21:02 (Protonix) 40 mg DAILY PO 12/31/16 09:00 12/31/16 09:00 (Duoneb Neb) 1 ampule Q4HR NEB NEB 12/30/16 20:00 12/31/16 17:06 (Zithromax) 500 mg DAILY PO 12/31/16 09:00 12/31/16 09:01 Ceftriaxone Sodium 1000 mg/ Sodium Chloride 100 ml @ 200 mls/hr Q24H IV 12/31/16 15:00 12/31/16 15:16 (Deltasone) 10 mg DAILY PO 12/31/16 09:00 12/31/16 09:00 (Levemir Inj) 25 units Q12HR SQ 12/30/16 21:00 12/31/16 09:01 (D50w (Vial) Inj) 50 ml UNSCH PRN IV PUSH 12/31/16 17:30 (Glucagon Inj) 1 mg UNSCH PRN OTHER 10/2/17 17:30 (NovoLOG SUPPLEMENTAL SCALE) 1 ACHS SLIDING SCALE SQ 12/31/16 17:30 12/31/16 18:16 Family History Father had HTN, ESRD on HD Mother had lupus Sister in room with her. No known lupus. Social History 20 pack year smoking hx, quit 10 years ago. No etoh No illicit drug use. Uses a wheel chair. 3L Oxygen at home. Uses CPAP at home for YOJANA. Sleeps propped up in bed with several pillows at baseline. Physical Exam Vital Signs Vital Signs Date Time Temp Pulse Resp B/P (MAP) Pulse Ox O2 Delivery O2 Flow Rate FiO2 12/31/16 12:00 98.2 95 18 102/60 (74) 95 12/31/16 08:30 Nasal Cannula 3.00 12/31/16 08:09 89 12/31/16 08:00 98.1 103 18 107/64 (78) 92 12/31/16 07:23 94 Nasal Cannula 3.00 12/31/16 04:00 Nasal Cannula 3.00 12/31/16 04:00 98.1 81 21 98/58 (71) 95 12/31/16 00:43 93 Nasal Cannula 3.00 12/31/16 00:00 97.7 85 16 109/56 (73) 97 12/31/16 00:00 Nasal Cannula 3.00 12/30/16 20:00 98.0 82 19 154/95 (114) 94 12/30/16 20:00 Nasal Cannula 3.00 12/30/16 18:00 98.5 89 18 106/60 (75) 98 12/30/16 15:37 92 18 107/57 (74) 98 Nasal Cannula 3.00 Physical Exam GENERAL: Obese, well-developed patient, in no apparent distress. SKIN: No rashes, ecchymoses or lesions. Cool and dry. HEAD: Atraumatic. Normocephalic. No temporal or scalp tenderness. EYES: Pupils equal round and reactive. Extraocular motions intact. No scleral icterus. No injection or drainage. ENT: Nose without bleeding, purulent drainage or septal hematoma. Throat without erythema, tonsillar hypertrophy or exudate. Uvula midline. Airway patent. NECK: Trachea midline. Supple, nontender, no meningeal signs. large neck. CARDIOVASCULAR: Regular rate and rhythm without murmurs, gallops, or rubs. RESPIRATORY: Clear to auscultation. Breath sounds equal bilaterally. No wheezes , rales, or rhonchi. GASTROINTESTINAL: Abdomen soft, non-tender, nondistended. No hepato-splenomegaly , or palpable masses. No guarding. MUSCULOSKELETAL: Extremities without clubbing, cyanosis, or edema. No joint tenderness, effusion, or edema noted. No calf tenderness. Negative Homans sign bilaterally. NEUROLOGICAL: Awake and alert. Cranial nerves II through XII intact. Motor and sensory grossly within normal limits. Five out of 5 muscle strength in all muscle groups. Normal speech. Psych cooperative, pleasant. IV line sites with no e/o infection. Laboratory Laboratory Tests Test 12/30/16 15:39 12/30/16 20:50 12/31/16 03:24 Lactic Acid Level 1.3 1.4 Total Creatine Kinase 52 60 Troponin I LESS THAN 0.02 LESS THAN 0.02 White Blood Count 8.2 Red Blood Count 3.38 Hemoglobin 8.9 Hematocrit 28.4 Mean Corpuscular Volume 84.1 Mean Corpuscular Hemoglobin 26.5 Mean Corpuscular Hemoglobin Concent 31.5 Red Cell Distribution Width 15.3 Platelet Count 257 Mean Platelet Volume 7.5 Neutrophils (%) (Auto) 74.6 Lymphocytes (%) (Auto) 14.3 Monocytes (%) (Auto) 8.6 Eosinophils (%) (Auto) 1.8 Basophils (%) (Auto) 0.7 Neutrophils # (Auto) 6.1 Lymphocytes # (Auto) 1.2 Monocytes # (Auto) 0.7 Eosinophils # (Auto) 0.2 Basophils # (Auto) 0.1 CBC Comment DIFF FINAL Differential Comment Blood Urea Nitrogen 26 Creatinine 1.36 Random Glucose 93 Total Protein 6.6 Albumin 2.9 Calcium Level 8.3 Alkaline Phosphatase 102 Aspartate Amino Transf (AST/SGOT) 19 Alanine Aminotransferase (ALT/SGPT) 25 Total Bilirubin 0.2 Sodium Level 140 Potassium Level 3.8 Chloride Level 103 Carbon Dioxide Level 29.4 Anion Gap 8 Estimat Glomerular Filtration Rate 49 Date/Time Source Procedure Growth Status 12/30/16 13:47 Blood Peripheral Aerobic Blood Culture - Preliminary NO GROWTH IN 1 DAY Resulted 12/30/16 13:47 Blood Peripheral Anaerobic Blood Culture - Preliminary NO GROWTH IN 1 DAY Resulted 12/30/16 14:08 Nasal Aspirate Influenza Types A,B Antigen (MARY ELLEN) - Final NEGATIVE FOR FLU A AND B ANTIGEN.... Complete 12/30/16 14:12 Urine Clean Catch Legionella Antigen - Final PRESUMPTIVE NEGATIVE FOR LEGIONELLA P... Complete 12/30/16 14:12 Urine Clean Catch Streptococcus pneumoniae Antigen (M - Final PRESUMPTIVE NEGATIVE FOR STREPTOCOCCU... Complete Result Diagram: 12/31/16 0324 12/31/16 0324 Imaging Last Impressions Chest X-Ray 12/30/16 1338 Signed Impressions: Service Date/Time: Friday, December 30, 2016 14:32 - CONCLUSION: Patchy areas of consolidation very similar to August. Erick Mack MD Assessment and Plan Assessment and Plan Possible sepsis on admission (Immune compromised host with leucocytosis and pneumonia) Pneumonia present on admission (CAP, atypical vs aspiration) Aspiration possible given GERD and regurg of liquids by history. SLE on steroids and mycophenolate. Pulmonary fibrosis. Ex smoker COPD, YOJANA on CPAP and 3 Home oxygen Recs Continue Ceftriaxone IV as clinically responded. Continue Azithro GI consult if confirmed as aspiration risk(severe esophagitis) will add flagyl post procedure. Influenza negative Legionella negative but all serotypes not detected so continue for now. Follow cultures Follow clinically. Discussed Condition With patient: full code. No advance directive on file. Ninfa Oneill MD Dec 31, 2016 14:17
[2016-12-31] MEDS: cefTRIAXone INJ 1,000 MG in SODIUM CHLORIDE 0.9% INJ 100 ML IV SCH (15:16)
[2016-12-31 16:09] LABS: HEMOGLOBIN A1a 0.8 %; HEMOGLOBIN A1b 0.9 %; HEMOGLOBIN Ao 81.6 %; HEMOGLOBIN F 1.4 %; HEMOGLOBIN P3 6.3 %
--- NOTE | 2016-12-31 17:11 | MB ---
cc: JONAS MCDANIEL M.D. DATE OF CONSULTATION 12/31/2016 REASON FOR CONSULTATION Interstitial lung disease, question pneumonia. HISTORY OF PRESENT ILLNESS The patient is a 51-year-old -[place] female admitted with temperature elevation to 101, sore throat, cough, question pneumonia on chest x-ray. The patient has known history of systemic lupus erythematosus, interstitial lung disease, COPD, diabetes mellitus, chronic kidney disease and chronic respiratory failure on home oxygen therapy at 3 liters oxygen nasal cannula. She is on prednisone on a long-term basis tapered down to 2.5 mg a day followed by Dr. Larsen from a rheumatologic standpoint. The patient is on bronchodilator therapy at home as well. PAST MEDICAL HISTORY Is that of: 1. Chronic kidney disease. 2. Systemic lupus erythematosus. 3. Interstitial lung disease. 4. Diabetes mellitus. 5. Chronic obstructive pulmonary disease. 6. Chronic respiratory failure on home oxygen therapy. 7. Chest x-ray bilateral patchy infiltrates which had been seen in the past. FAMILY HISTORY Noncontributory. MEDICATIONS Include: 1. Albuterol inhaler and nebulizers. 2. Singulair. 3. Protonix. 4. Insulin. 5. Prednisone 2.5 mg daily upon presentation. 6. Aspirin. 7. Gabapentin. 8. Bumex. 9. Oxygen via nasal cannula. 10. Symbicort twice daily. ALLERGIES None known to medication. REVIEW OF SYSTEMS 12-point review of systems as per HPI and past history otherwise negative. PHYSICAL EXAMINATION GENERAL: On exam the patient is alert. VITAL SIGNS: Temperature 98, pulse 90, respirations 18, blood pressure 102/60, O2 saturation 95% on 3 liters oxygen. HEENT: Exam unremarkable. Eyes without icterus. NECK: Without adenopathy or thyroid enlargement. Central trachea. CHEST: Few scattered rhonchi at bases. CARDIOVASCULAR: Cardiac exam PMI distant. S1-S2 audible. 1/6 ejection systolic murmur left sternal border. ABDOMEN: Obese. Lax. Bowel sounds audible. EXTREMITIES: Trace edema. LABORATORY DATA White count upon presentation 12,000, today 8000. Hemoglobin upon presentation 9.9, now 8.9. Platelets today 257,000. Sodium 140, potassium 3.8, BUN 26, creatinine 1.3. IMPRESSION 1. Fever, sore throat question pneumonia. 2. Interstitial lung disease. 3. Systemic lupus erythematosus. 4. Chronic obstructive pulmonary disease. 5. Chronic kidney disease. PLAN The patient has been started on antibiotic therapy and appropriately so. She is followed by infectious disease. Would continue oxygen therapy, bronchodilator therapy, steroids will be given as well tapered post discharge as tolerated. The patient seems to be responding to therapy positively. We will follow her course along with you. Jonas Mcdaniel MD WWW/BELKIS /3:45 PM /4:57 PM
--- NOTE | 2016-12-31 17:19 | PD.CONS ---
HPI History of Present Illness This is a 51 year old female patient with multiple medical problems including COPD, pulmonary fibrosis, on home O2 at 3-4L, lupus, SHAKIR, GERD, nonspecific colitis, and recent Hemoccult positive stool. The patient reports that she has been having intermittent chills x 2 weeks ago. About 2 days ago, she started having more shortness of breath and developed a fever blister. She took her temperature and this was elevated at 101.6. She reports that she came to the ER for further evaluation and and was started on antibiotics, at which time she developed a productive cough (she did not look at this so she does not know the color). She is admitted for community acquired pneumonia. She was evaluated by ID and they have consulted GI for evaluation of reflux, recent hemoccult positive stool as outpatient. The patient tells me that she was called by her kidney doctor last Saturday and said that she had blood in her stool and she is in the process of getting referred to GI. She has a long history of GERD and take protonix at home, but still finds herself waking up with reflux at night. She denies any nausea, vomiting, or abdominal pain. She has not seen any blood in her stool and has not had any black tarry stools. She has been on prednisone and aspirin at home. She last had an EGD/Colonoscopy (04/29/13)---> 1. Mild gastritis 2. Colonic erythema. Pathology duodenum benign small intestinal mucosa with mild nonspecific chronic inflammation, benign antral type gastric mucosa with no significant histopathology. A nicole stain is negative for Helicobacter organism, mild chronic active colitis, chronic active colitis, chronic active colitis- possible acute self limited colitis as well as idiopathatic inflammatory bowel disease, no typical of lymphocytic colitis. (Klarissa Blair) PFSH Past Medical History GERD Nonspecific colitis Lupus Pulmonary fibrosis DM COPD SHAKIR Recent hemoccult positive stool Past Surgical History EGD/Colonoscopy Ankle surgery right Uterine ablation Kidney bx Lung bx (Klarissa Blair) Coded Allergies: *MDRO Multi-Drug Resistant Organism (Verified Adverse Reaction, Unknown, ) 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 Pt does not require isolation for hx of MDRO prior to 05/11/15* Medications Allergies Coded Allergies Type Severity Reaction Last Updated Verified *MDRO Multi-Drug Resistant Organism Adverse Reaction Unknown 11/28/16 Yes Active Scripts Medications Dose Route/Sig Max Daily Dose Days Date Category Dose Instructions Onetouch Ultra Test Strips (Blood Glucose Test Strips) 1 Celeste Celeste 1 Strip .ROUTE DIRECTED 11/08/16 Rx Ventolin Hfa 18 GM Inh (Albuterol Sulfate) 90 Mcg/Act Aer 2 Puff INH Q4H PRN 11/06/16 Rx Albuterol Neb (Albuterol Sulfate) 2.5 Mg/3 Ml Neb 2.5 Mg NEB Q4HR NEB PRN 11/06/16 Rx Iron High-Potency (Ferrous Sulfate) 325 Mg Tab 325 Mg PO BID 10/18/16 Rx Singulair (Montelukast Sodium) 10 Mg Tab 10 Mg PO HS 10/18/16 Rx Protonix (Pantoprazole Sodium) 40 Mg Tab 40 Mg PO DAILY 10/18/16 Rx Mycophenolate (Mycophenolate Mofetil) 500 Mg Tab 500 Mg PO TID 10/15/16 Rx Novolog Inj (Insulin Aspart) 100 Unit/Ml Inj 35 Units SQ ACHS SLIDING SCALE 10/15/16 Rx Levemir Inj (Insulin Detemir) 1,000 unit/ 10 ML Vial 50 Units SQ BID 10/15/16 Rx Please tkae 50 units in am and 40 units in PM. Wheelchair (Device) 1 Mis Mis 1 Ea .ROUTE DIRECTED PRN 10/15/16 Rx Use for 99 years + Prednisone 10 Mg Tab 10 Mg PO DAILY 10/15/16 Rx Aspirin 81 Low Dose (Aspirin) 81 Mg Chew 81 Mg CHEW DAILY 10/03/16 Rx Gabapentin 800 Mg Tab 800 Mg PO BID 09/19/16 Rx Bumetanide 1 Mg Tab 1 Mg PO BID 09/19/16 Rx Onetouch Delica Lancets E 1 Mis Mis 1 Ea .ROUTE DIRECTED 09/17/16 Rx Duoneb (Ipratropium-Albuterol Neb) 0.5-2.5 Mg/3 Ml Neb 1 Nebule INH HS 09/12/16 Rx Oxygen tank (Oxygen) 1 Ea Tank 2 Liter VARSHA.CANULA CONTINUOUS 08/08/16 Rx Oxygen Concentrator Portable Gaseous 2 L/min via Nasal Cannula Continuous For 99 months Metolazone 5 Mg Tab 5 Mg PO TID 08/08/16 Rx [Physical Therapy] 07/13/16 Rx Symbicort Inh (Budesonide/Formoterol Fumarate) 160-4.5 Mcg/Act Aero 2 Puff INH Q12HR 05/18/16 Rx Family History Father had htn, ESRD on HD Mother had lupus Social History 20 pack year smoking hx, quit 10 years ago No etoh No illicit drug use (Klarissa Blair) Review of Systems Constitutional: COMPLAINS OF: Fatigue, Fever, Weight loss (8 lbs in 4 months), Chills, DENIES: Change in appetite Respiratory: COMPLAINS OF: Cough, Sputum production, Shortness of breath Cardiovascular: DENIES: Chest pain Gastrointestinal: COMPLAINS OF: Heartburn, DENIES: Abdominal pain, Black stools , Bloody stools, Nausea, Vomiting Musculoskeletal: COMPLAINS OF: Joint pain Integumentary: DENIES: Rash Hematologic/lymphatic: DENIES: Bruising Neurologic: DENIES: Headache Psychiatric: DENIES: Confusion (Klarissa Blair) GI Exam Vitals I&O Vital Signs Date Time Temp Pulse Resp B/P (MAP) Pulse Ox O2 Delivery O2 Flow Rate FiO2 12/31/16 16:00 Nasal Cannula 3.00 12/31/16 12:00 98.2 95 18 102/60 (74) 95 12/31/16 12:00 Nasal Cannula 3.00 12/31/16 08:30 Nasal Cannula 3.00 12/31/16 08:09 89 12/31/16 08:00 98.1 103 18 107/64 (78) 92 12/31/16 07:23 94 Nasal Cannula 3.00 12/31/16 04:00 Nasal Cannula 3.00 12/31/16 04:00 98.1 81 21 98/58 (71) 95 12/31/16 00:43 93 Nasal Cannula 3.00 12/31/16 00:00 97.7 85 16 109/56 (73) 97 12/31/16 00:00 Nasal Cannula 3.00 12/30/16 20:00 98.0 82 19 154/95 (114) 94 12/30/16 20:00 Nasal Cannula 3.00 12/30/16 18:00 98.5 89 18 106/60 (75) 98 I/O 12/30/16 12/30/16 12/30/16 12/31/16 12/31/162/17 07:00 15:00 23:00 07:00 15:00 23:00 Intake Total 700 ml 100 ml Output Total 790 ml Balance 700 ml -790 ml 100 ml Intake IV Total 700 ml 100 ml Output Urine Total 790 ml # Bowel Movements 0 Imaging Last Impressions Chest X-Ray 12/30/16 1338 Signed Impressions: Service Date/Time: Friday, December 30, 2016 14:32 - CONCLUSION: Patchy areas of consolidation very similar to August. Erick Mack MD Laboratory Test 12/30/16 20:50 12/31/16 03:24 Lactic Acid Level 1.4 mmol/L Total Creatine Kinase 52 U/L 60 U/L Troponin I LESS THAN 0.02 NG/ML LESS THAN 0.02 NG/ML White Blood Count 8.2 TH/MM3 Red Blood Count 3.38 MIL/MM3 Hemoglobin 8.9 GM/DL Hematocrit 28.4 % Mean Corpuscular Volume 84.1 FL Mean Corpuscular Hemoglobin 26.5 PG Mean Corpuscular Hemoglobin Concent 31.5 % Red Cell Distribution Width 15.3 % Platelet Count 257 TH/MM3 Mean Platelet Volume 7.5 FL Neutrophils (%) (Auto) 74.6 % Lymphocytes (%) (Auto) 14.3 % Monocytes (%) (Auto) 8.6 % Eosinophils (%) (Auto) 1.8 % Basophils (%) (Auto) 0.7 % Neutrophils # (Auto) 6.1 TH/MM3 Lymphocytes # (Auto) 1.2 TH/MM3 Monocytes # (Auto) 0.7 TH/MM3 Eosinophils # (Auto) 0.2 TH/MM3 Basophils # (Auto) 0.1 TH/MM3 CBC Comment DIFF FINAL Differential Comment Blood Urea Nitrogen 26 MG/DL Creatinine 1.36 MG/DL Random Glucose 93 MG/DL Total Protein 6.6 GM/DL Albumin 2.9 GM/DL Calcium Level 8.3 MG/DL Alkaline Phosphatase 102 U/L Aspartate Amino Transf (AST/SGOT) 19 U/L Alanine Aminotransferase (ALT/SGPT) 25 U/L Total Bilirubin 0.2 MG/DL Sodium Level 140 MEQ/L Potassium Level 3.8 MEQ/L Chloride Level 103 MEQ/L Carbon Dioxide Level 29.4 MEQ/L Anion Gap 8 MEQ/L Estimat Glomerular Filtration Rate 49 ML/MIN Date/Time Source Procedure Growth Status 12/30/16 13:47 Blood Peripheral Aerobic Blood Culture - Preliminary NO GROWTH IN 1 DAY Resulted 12/30/16 13:47 Blood Peripheral Anaerobic Blood Culture - Preliminary NO GROWTH IN 1 DAY Resulted 12/30/16 14:08 Nasal Aspirate Influenza Types A,B Antigen (MARY ELLEN) - Final NEGATIVE FOR FLU A AND B ANTIGEN.... Complete 12/30/16 14:12 Urine Clean Catch Legionella Antigen - Final PRESUMPTIVE NEGATIVE FOR LEGIONELLA P... Complete 12/30/16 14:12 Urine Clean Catch Streptococcus pneumoniae Antigen (M - Final PRESUMPTIVE NEGATIVE FOR STREPTOCOCCU... Complete Physical Examination HEENT: Normocephalic; atraumatic; no jaundice. CHEST: Resp even/unlabored, diminished n/c CARDIAC: ReRR ABDOMEN: Soft, nondistended, nontender; no hepatosplenomegaly; bowel sounds are present in all four quadrants. EXTREMITIES: No clubbing, cyanosis, or edema. SKIN: Normal; no rash; no jaundice. CLINICAL NURSE OCCUPATIONAL MEDICINE: No focal deficits; alert and oriented times three. (Klarissa Blair) Assessment and Plan Plan ASSESSMENT: - GERD, ? Aspiration from reflux. Long hx of GERD, on Protonix at home. States she has been having reflux at night. GI consulted for further evaluation. Last EGD (04/29/13)---> 1. Mild gastritis, pathology duodenum benign small intestinal mucosa with mild nonspecific chronic inflammation, benign antral type gastric mucosa with no significant histopathology. A nicole stain is negative for Helicobacter organism. PPI. EGD in am. - Hemoccult positive stool, SHAKIR. Recently found to have Hemoccult positive stool, in the process of being referred to GI by primary. (+) Gerd/reflux. No other obvious GI symptoms. Of note, had egd/ colonoscopy (04/29/13)---> 1. Mild gastritis 2. Colonic erythema. Pathology duodenum benign small intestinal mucosa with mild nonspecific chronic inflammation, benign antral type gastric mucosa with no significant histopathology. A nicole stain is negative for Helicobacter organism. Mild chronic active colitis, chronic active colitis, chronic active colitis- possible acute self limited colitis as well as idiopathatic inflammatory bowel disease, no typical of lymphocytic colitis. She has lupus. Given her recent hx of hemoccult (+) stool, anemia, and hx of nonspecific colitis and hx of autoimmune dz, we will recommend both egd/colonoscopy in am. She is agreeable. HH 8.9/28.4. - HCAP, COPD, Pulmonary fibrosis. Nebs, Abx, Steroids per attending. ID following - VISHNU. 1.36. - Lupus, DM, per attending - Hx nonspecific colitis in 2013. PLAN: - Plan for egd/colonoscopy in am - Obtain consents - Clear liquids - NPO after MN - Golytely prep - Hold heparin after MN - Monitor hh - Transfuse as necessary - PPI - Supportive care - Further recommendations to follow based on results of above - Pt seen and examined by Dr. Tapia and myself and this note is written on her behalf (Klarissa Blair) Physician Comments seen, examined agree with above (Estela Tapia MD) Klarissa Blair Dec 31, 2016 17:19 Estela Tapia MD Dec 31, 2016 18:12
[2016-12-31] MEDS ORDERED: GLUCAGON 1 MG/ML VIAL OTHER PRN (17:30)
[2016-12-31] MEDS ORDERED: DEXTROSE 50% IN WATER 50 ML VIAL(D50) IV PUSH PRN (17:30)
[2016-12-31] MEDS ORDERED: PEG (High)/E-LYTE SOLN 4000 ML BTL PO ONE (18:00)
[2016-12-31] MEDS: INSULIN ASPART SUPPLEMENTAL SCALE SQ SCH ×2 (18:16→21:57)
--- NOTE | 2016-12-31 19:31 | EKG ---
Date Performed: 12/30/2016 Time Performed: 20:15:26 PTAGE: 51 years EKG: Sinus rhythm NORMAL ECG PREVIOUS TRACING : 12/30/2016 13.31 Compared to prior tracing no significant change DOCTOR: Abdullahi Keen Interpretating Date/Time 12/31/2016 19:30:02
--- NOTE | 2016-12-31 19:40 | EKG ---
Date Performed: 12/30/2016 Time Performed: 13:31:22 PTAGE: 51 years EKG: SINUS TACHYCARDIA ABNORMAL RHYTHM ECG NO PREVIOUS TRACING DOCTOR: Abdullahi Keen Interpretating Date/Time 12/31/2016 19:35:48
[2016-12-31] MEDS: MONTELUKAST SODIUM 10 MG TAB PO SCH (21:55)
[2016-12-31] MEDS: ZOLPIDEM TARTRATE 5 MG TAB PO PRN (21:58)
[2017-01-01] VITALS (9 sets, daily range): BP systolic 96–111; BP diastolic 53–78; PULSE 83–101; RESP 16–18; TEMP 98.2–98.9; O2SAT 93–98
[2017-01-01] MEDS: RESP: ALBUTEROL 2.5 MG/IPRATROPIUM 0.5 MG NEB (SCH) NEB ×6 (00:43→20:00)
[2017-01-01] MEDS: INSULIN ASPART SUPPLEMENTAL SCALE SQ SCH ×4 (07:51→21:46)
[2017-01-01] MEDS: INSULIN DETEMIR 100 UNITS/ML VIAL SQ SCH ×2 (08:06→21:46)
[2017-01-01 08:09] LABS: HEMATOCRIT 28.2 % (35.0-46.0); MEAN CELL VOLUME 83.1 FL (80.0-100.0); MEAN CORPUSCULAR HEMOGLOBIN 26.4 PG (27.0-34.0); MEAN CORPUSCULAR HGB CONC 31.7 % (32.0-36.0); PLATELET COUNT 270 TH/MM3 (150-450); RED CELL DISTRIBUTION WIDTH 14.7 % (11.6-17.2); REVIEW FLAG FINAL; WHITE BLOOD COUNT 6.2 TH/MM3 (4.0-11.0)
[2017-01-01] MEDS ORDERED: BENZONATATE 100 MG CAP PO PRN (08:30)
[2017-01-01 08:31] LABS: BICARBONATE 29.1 MEQ/L (21.0-32.0); POTASSIUM 3.3 MEQ/L (3.5-5.1)
[2017-01-01] MEDS: DOCUSATE SODIUM 50 MG/SENNA 8.6 MG TAB PO SCH ×2 (09:00→21:00)
[2017-01-01] MEDS: AZITHROMYCIN 250 MG TAB PO SCH (09:29)
[2017-01-01] MEDS: ASPIRIN 81 MG CHEW TAB CHEW SCH (09:29)
[2017-01-01] MEDS: GABAPENTIN 400 MG CAP PO SCH ×2 (09:29→21:43)
[2017-01-01] MEDS: METOLAZONE 5 MG TAB PO SCH ×3 (09:29→17:55)
[2017-01-01] MEDS: BUMETANIDE 1 MG TAB PO SCH ×2 (09:29→21:43)
[2017-01-01] MEDS: PANTOPRAZOLE SOD 40 MG DELAYED RELEASE TAB PO SCH (09:29)
[2017-01-01] MEDS: BUDESONIDE-FORMOTEROL 160/4.5 MCG INHALER INH SCH ×2 (09:29→21:45)
[2017-01-01] MEDS: predniSONE 10 MG TAB PO SCH (09:29)
[2017-01-01] MEDS: ACETAMINOPHEN 325 MG TAB PO PRN ×2 (09:29→21:44)
[2017-01-01] MEDS: SODIUM CHLORIDE 0.9% FLUSH 10 ML FLUSH IV FLUSH SCH ×2 (09:31→21:44)
--- NOTE | 2017-01-01 10:15 | HHI.FPPN ---
Subjective Remarks Patient seen and examined this morning. Temp: 98.9, pulse 101, RR 18, BP 110/78 , Pulse ox 93 on 3L NC. She reports that she is feeling better since being on the antibiotics. She is feeling like her breathing is back to baseline. She is understanding of the plan for an EGD and Colonoscopy today. She denies any blood in her stool. She is aware that she is not on her immunosuppressive medication and will inform that team if she starts to feel any signs of worsening of her Lupus. Endorses: Shortness of breath Denies: Fever, chills, nausea, vomiting, chest pain, headache, abdominal pain, calf pain All other review of symptoms were negative (Louis Castro MD, R3) Objective Vitals Vital Signs Date Time Temp Pulse Resp B/P (MAP) Pulse Ox O2 Delivery O2 Flow Rate FiO2 01/01/17 08:05 98.9 101 18 110/78 (89) 93 01/01/17 08:00 Nasal Cannula 3.00 01/01/17 07:53 94 01/01/17 07:23 97 Nasal Cannula 3.00 01/01/17 04:00 Nasal Cannula 3.00 01/01/17 04:00 98.6 89 16 96/54 (68) 96 01/01/17 00:00 98.2 92 18 103/53 (70) 97 01/01/17 00:00 Nasal Cannula 3.00 12/31/16 20:48 98 Nasal Cannula 3.00 12/31/16 20:40 93 12/31/16 20:00 Nasal Cannula 3.00 12/31/16 20:00 98.6 95 18 110/67 (81) 99 12/31/16 16:00 98.6 98 18 112/61 (78) 97 12/31/16 16:00 Nasal Cannula 3.00 12/31/16 12:00 98.2 95 18 102/60 (74) 95 12/31/16 12:00 Nasal Cannula 3.00 I/O 12/31/16 12/31/16 12/31/16 01/01/17 01/01/17 01/01/17 07:00 15:00 23:00 07:00 15:00 23:00 Intake Total 1060 ml 0 ml Output Total 790 ml 1800 ml 2600 ml Balance -790 ml -740 ml -2600 ml Intake Oral 960 ml 0 ml IV Total 100 ml Output Urine Total 790 ml 1800 ml 2600 ml # Bowel Movements 0 0 2 (Louis Castro MD, R3) Result Diagram: 01/01/17 0710 01/01/17 0710 Imaging Last Impressions Chest X-Ray 12/30/16 1338 Signed Impressions: Service Date/Time: Friday, December 30, 2016 14:32 - CONCLUSION: Patchy areas of consolidation very similar to August. Erick Mack MD Objective Remarks GENERAL: Patient is an obese female lying in bed with nasal cannula in place. She is in no apparent distress at this time She reports feeling better today with her breathing and even requests to go home soon. SKIN: Warm and dry. No obvious rashes or ecchymoses. HEAD: Atraumatic. Normocephalic. EYES: Pupils equal and round. No scleral icterus. No injection or drainage. No conjunctival injection noted. ENT: No nasal bleeding or discharge. Mucous membranes pink and moist. Mild rhinorrhea, clear, noted NECK: Trachea midline. No JVD. CARDIOVASCULAR: Regular rate and rhythm. No obvious murmurs on auscultation. RESPIRATORY: No accessory muscle use. Bilateral lung be with coarse crackles at the bases bilaterally chronically. Breath sounds equal bilaterally. Moving air well GASTROINTESTINAL: Abdomen soft, non-tender, nondistended. Hepatic and splenic margins not palpable. MUSCULOSKELETAL: Extremities without clubbing, cyanosis, or edema. No obvious deformities. NEUROLOGICAL: Awake and alert. No obvious cranial nerve deficits. Motor grossly within normal limits. 5/5 strength in the arms and legs. Normal speech. PSYCHIATRIC: Appropriate mood and affect; insight and judgment normal. Medications and IVs Current Medications Medications (Trade) Dose Ordered Sig/Iván Route Start Time Stop Time Status Last Admin (NS Flush) 2 ml UNSCH PRN IV FLUSH 12/30/16 16:15 (NS Flush) 2 ml BID IV FLUSH 12/30/16 21:00 01/01/17 09:31 (Zofran Inj) 4 mg Q6H PRN IVP 12/30/16 16:15 (Ambien) 5 mg HS PRN PO 12/30/16 16:15 12/31/16 21:58 (Heparin Inj) 5,000 units Q12H SQ 10/1/17 17:00 Future Hold 12/31/16 17:03 (Narcan Inj) 0.4 mg UNSCH PRN IV PUSH 12/30/16 16:15 (Galina-Colace) 1 tab BID PO 12/30/16 21:00 12/31/16 09:00 (Milk Of Magnesia Liq) 30 ml Q12H PRN PO 12/30/16 16:15 (Senokot) 17.2 mg Q12H PRN PO 12/30/16 16:15 (Dulcolax Supp) 10 mg DAILY PRN RECTAL 12/30/16 16:15 (Lactulose Liq) 30 ml DAILY PRN PO 12/30/16 16:15 (Tylenol) 650 mg Q4H PRN PO 12/30/16 16:15 01/01/17 09:29 (Aspirin Chew) 81 mg DAILY CHEW 12/31/16 09:00 01/01/17 09:29 (Symbicort 160-4.5 Inh) 2 puff Q12HR INH 12/30/16 21:00 01/01/17 09:29 (Bumetanide) 1 mg BID PO 12/30/16 21:00 01/01/17 09:29 (Neurontin) 800 mg BID PO 12/30/16 21:00 01/01/17 09:29 (Zaroxolyn) 5 mg TID PO 12/30/16 18:00 01/01/17 09:29 (Singulair) 10 mg HS PO 12/30/16 21:00 12/31/16 21:55 (Protonix) 40 mg DAILY PO 12/31/16 09:00 01/01/17 09:29 (Duoneb Neb) 1 ampule Q4HR NEB NEB 12/30/16 20:00 01/01/17 07:21 (Zithromax) 500 mg DAILY PO 12/31/16 09:00 01/01/17 09:29 Ceftriaxone Sodium 1000 mg/ Sodium Chloride 100 ml @ 200 mls/hr Q24H IV 12/31/16 15:00 12/31/16 15:16 (Deltasone) 10 mg DAILY PO 12/31/16 09:00 01/01/17 09:29 (Levemir Inj) 25 units Q12HR SQ 12/30/16 21:00 12/31/16 21:56 (D50w (Vial) Inj) 50 ml UNSCH PRN IV PUSH 12/31/16 17:30 (Glucagon Inj) 1 mg UNSCH PRN OTHER 12/31/16 17:30 (NovoLOG SUPPLEMENTAL SCALE) 1 ACHS SLIDING SCALE SQ 12/31/16 17:30 12/31/16 21:57 (Tessalon) 100 mg TID PRN PO 01/01/17 08:30 (Louis Castro MD, R3) A/P Assessment and Plan 51F with extensive medical history including lupus, ILD, DM, CKD, on home oxygen 3L at baseline. She presents with upper respiratory symptoms with history concerning for PNA. She is notably on mycophenolate which may portend weakened immune system. Admit to inpatient for further management. Discharge Planning Pt wants to go home as soon as she is stable for discharge wdw: Dr. Rodríguez (Louis Castro MD, R3) Attending Attestation Patient seen and examined. Case reviewed and discussed with the resident team. Agree with plan of care as discussed with me and documented in the resident note. talked to her and her daughter. she is doing so well being on CellCept from Rheumatology. will restart this so she does not get worse with her lupus. She was constantly in and out of the hospital in the spring and before but has been stable and improved with anti lupus meds! appreciate help of all consultants. (Noreen Rodríguez MD) Problem List: (1) Community acquired pneumonia ICD Codes: J18.9 - Pneumonia, unspecified organism Status: Acute Plan: Patient is improving on IV antibiotics * Rocephin and Azithromycin (12/30 - ) * Vital signs q4hr per protocol * Added UA with urine Legionella and Pneumococcal Ag: negative * Duonebs q4hr * Continue home medications - Singulair * Incentive spirometry * Supplemental oxygen with goal O2 sat >92% (on baseline home O2 @ 3L) * Holding mycophenolate due to side effect of ILD and immunosuppressive properties: will restart as soon as approved by ID * will ask ID for any advice on abx with mycophenolate. would like to keep her on that med as she has such aggressive lupus she has had multiple bouts of hypoxia and renal failure when untreated for lupus (2) Type 2 diabetes, controlled, with neuropathy ICD Codes: E11.40 - Type 2 diabetes mellitus with diabetic neuropathy, unspecified Status: Chronic Plan: Chronic. On Levemir 50 BID per EMR. Will continue Levemir but at reduced dose of 25 BID for now, titrate as appropriate. Supplemental Novolog PRN with schedule Accucheks. Hypoglycemia protocol if needed. A1c 7.5 (3) CKD (chronic kidney disease) stage 3, GFR 30-59 ml/min ICD Codes: N18.3 - Chronic kidney disease, stage 3 (moderate) Status: Acute Plan: GFR at baseline. Monitor BMP daily she is stable now with her renal fxn on immunosuppressants as her acute events of renal failure were lupus related (4) Anemia ICD Codes: D64.9 - Anemia, unspecified Status: Chronic Plan: Chronic. Stable. Continue to monitor. Patient reports outside lab stating she was positive for blood in stool * Hemoccult stool pending * GI consulted recs appreciated * EGD and Colonoscopy pending (5) GERD (gastroesophageal reflux disease) ICD Codes: K21.9 - Gastro-esophageal reflux disease without esophagitis Status: Chronic Plan: Chronic, stable. Continue Protonix 40mg PO daily (6) Interstitial lung disease ICD Codes: J84.9 - Interstitial pulmonary disease, unspecified Status: Chronic Plan: Holding mycophenolate per home, start back yosi as this is lupus related. Otherwise will increase steroids (7) Lupus ICD Codes: M32.9 - Systemic lupus erythematosus, unspecified Status: Acute Plan: Sees Dr. Larsen, on prednisone (patient unsure of dose). Will continue prednisone at 10mg daily per med rec. she needs to be back on her strong immunosuppressants YOSI as her lupus is very aggressive (8) Nutrition, metabolism, and development symptoms ICD Codes: R63.8 - Other symptoms and signs concerning food and fluid intake Status: Acute Plan: Fluids: holding for now, PO hydration Electrolytes: monitor and replete as needed Nutrition: diabetic diet DVT Prophylaxis: Early ambulation. Heparin 5000U sq q12hr GI Prophylaxis: Home dose Protonix (Louis Castro MD, R3) Problem Qualifiers (1) Anemia: Qualified Codes: D64.89 - Other specified anemias (2) Lupus: Qualified Codes: M32.13 - Lung involvement in systemic lupus erythematosus Louis Castro MD, R3 Jan 01, 2017 10:15 Noreen Rodríguez MD Jan 01, 2017 11:15
[2017-01-01] MEDS ORDERED: PROPOFOL 200 MG/20 ML AMP IV ONE (12:00)
[2017-01-01] MEDS ORDERED: LIDOCAINE HCL 1% PF 5 ML AMPULE OTHER ONE (12:00)
--- NOTE | 2017-01-01 13:44 | GIPROC ---
[facility] [address] [facility]. [facility], [address] COLONOSCOPY PROCEDURE REPORT EXAM DATE: 01/01/2017 PATIENT NAME: Miryea See MR #: [id number] BIRTHDATE: 1965 ENDOSCOPIST: Estela Tapia MD ORDER #: [id number] TECHNICAL DEVELOPER: Humphrey Bateman and Mir Bailon STATUS: inpatient INDICATIONS: The patient is a 51 yr old female here for a colonoscopy due to abdominal pain PROCEDURE PERFORMED: Colonoscopy, diagnostic MEDICATIONS: None and Per Anesthesia. PREP QUALITY: good PREP TYPE:GoLytely ESTIMATED BLOOD LOSS: None CONSENT: The patient understands the risks and benefits of the procedure and understands that these risks include, but are not limited to: sedation, allergic reaction, infection, perforation and/or bleeding. Alternative means of evaluation and treatment include, among others: physical exam, x-rays, and/or surgical intervention. The patient elects to proceed with this endoscopic procedure. medical equipment was checked for proper function. Hand hygiene and appropriate measures for infection prevention was taken. After the risks, benefits and alternatives of the procedure were thoroughly explained, Informed consent was verified, confirmed and timeout was successfully executed by the treatment team. A digital exam revealed hemorrhoids The Pentax [id number] endoscope was introduced through the anus and advanced to the cecum, which was identified by both the appendix and ileocecal valve. The instrument was then slowly withdrawn as the colon was fully examined. COLON FINDINGS: Diverticulosis sigmopid, descending. Retroflexed views revealed internal hemorrhoids and Retroflexed views revealed small internal hemorrhoids The scope was then completely withdrawn from the patient and the procedure terminated. PROCEDURE WITHDRAWAL TIME:6minutes ADVERSE EVENTS: There were no complications. IMPRESSIONS: 1. Diverticulosis sigmopid, descending 2. Retroflexed views revealed internal hemorrhoids 3. Retroflexed views revealed small internal hemorrhoids 4. Revealed hemorrhoids RECOMMENDATIONS: 1. Benefiber 2 tsp daily 2. Probiotics from any [facility] or health food store RECALL: Return 10 years Colonoscopy Estela Tapia MD eSigned: Estela Tapia MD 01/01/2017 1:43 PM cc:
--- NOTE | 2017-01-01 13:47 | GIPROC ---
[facility] [address] [facility]. [facility], [id number] EGD PROCEDURE REPORT EXAM DATE: 01/01/2017 PATIENT NAME: Mireya See MR #: [id number] BIRTHDATE: 1965 ATTENDING: Estela Tapia MD ORDER #: [id number] SENIOR MANAGING DIRECTOR: Humphrey Bateman and Mir Bailon STATUS: inpatient INDICATIONS: The patient is a 51 yr old female here for an EGD due to reflux PROCEDURE PERFORMED: EGD w/ biopsy MEDICATIONS: None and Per Anesthesia. TOPICAL ANESTHETIC: none CONSENT: The patient understands the risks and benefits of the procedure and understands that these risks include, but are not limited to: sedation, allergic reaction, infection, perforation and/or bleeding. Alternative means of evaluation and treatment include, among others: physical exam, x-rays, and/or surgical intervention. The patient elects to proceed with this endoscopic procedure. medical equipment was checked for proper function. Hand hygiene and appropriate measures for infection prevention was taken. After the risks, benefits and alternatives of the procedure were thoroughly explained, Informed consent was verified, confirmed and timeout was successfully executed by the treatment team. The patient was anesthetized with topical anesthesia and the [id number] (Pedi C) endoscope was introduced through the mouth and advanced to the second portion of the duodenum. Retroflexed views revealed a hiatal hernia The gastroscope was then slowly withdrawn and removed. Gastritis antrum-biopsy esophagitis distal esophagus-biopsy. ADVERSE EVENTS: There were no complications. IMPRESSIONS: 1. Gastritis antrum-biopsy esophagitis distal esophagus-biopsy 2. Retroflexed views revealed a hiatal hernia RECOMMENDATIONS: 1. Await biopsy results. Biopsy results will not be ready for 7-10 days. If you don't hear from us in two weeks, call our office for biopsy results. 2. Anti-reflux regimen 3. Start PPI PATIENT CONDITION: stable DISPOSITION: Inpatient REPEAT EXAM: EGD pending biopsy results Estela Tapia MD eSigned: Estela Tapia MD 01/01/2017 1:47 PM cc:
[2017-01-01] MEDS: MYCOPHENOLATE MOFETIL 500 MG TAB PO SCH ×2 (15:00→17:55)
[2017-01-01] MEDS: cefTRIAXone INJ 1,000 MG in SODIUM CHLORIDE 0.9% INJ 100 ML IV SCH (15:01)
--- NOTE | 2017-01-01 16:07 | HHI.PR ---
Subjective Remarks alert no sob Objective Vital Signs Date Time Temp Pulse Resp B/P (MAP) Pulse Ox O2 Delivery O2 Flow Rate FiO2 01/01/17 13:43 Nasal Cannula 3 01/01/17 13:43 97.7 83 20 99/63 (75) 96 01/01/17 12:05 98.4 100 18 111/64 (80) 96 01/01/17 08:05 98.9 101 18 110/78 (89) 93 01/01/17 08:00 Nasal Cannula 3.00 01/01/17 07:53 94 01/01/17 07:23 97 Nasal Cannula 3.00 01/01/17 04:00 Nasal Cannula 3.00 01/01/17 04:00 98.6 89 16 96/54 (68) 96 01/01/17 00:00 98.2 92 18 103/53 (70) 97 01/01/17 00:00 Nasal Cannula 3.00 12/31/16 20:48 98 Nasal Cannula 3.00 12/31/16 20:40 93 12/31/16 20:00 Nasal Cannula 3.00 12/31/16 20:00 98.6 95 18 110/67 (81) 99 I/O 12/31/16 12/31/16 12/31/16 01/01/17 01/01/17 01/01/17 07:00 15:00 23:00 07:00 15:00 23:00 Intake Total 1060 ml 0 ml 300 ml Output Total 790 ml 1800 ml 2600 ml Balance -790 ml -740 ml -2600 ml 300 ml Intake Oral 960 ml 0 ml IV Total 100 ml 300 ml Output Urine Total 790 ml 1800 ml 2600 ml # Bowel Movements 0 0 2 Result Diagram: 01/01/17 0710 01/01/17 0710 Objective Remarks GENERAL: SKIN: Warm and dry. HEAD: Atraumatic. Normocephalic. EYES: Pupils equal and round. No scleral icterus. No injection or drainage. ENT: No nasal bleeding or discharge. Mucous membranes pink and moist. NECK: Trachea midline. No JVD. CARDIOVASCULAR: Regular rate and rhythm. RESPIRATORY: No accessory muscle use. Clear to auscultation. Breath sounds equal bilaterally. GASTROINTESTINAL: Abdomen soft, non-tender, nondistended. Hepatic and splenic margins not palpable. MUSCULOSKELETAL: Extremities without clubbing, cyanosis, or edema. No obvious deformities. NEUROLOGICAL: Awake and alert. No obvious cranial nerve deficits. Motor grossly within normal limits. Five out of 5 muscle strength in the arms and legs. Normal speech. PSYCHIATRIC: Appropriate mood and affect; insight and judgment normal. Assessment and Plan Assessment and Plan PNA SUSPECT SLE ILD plan O2 NEEDED ANTIBIOTICS F/U CXRAY Jonas Mcdaniel MD Jan 01, 2017 16:07
[2017-01-01] MEDS: ZOLPIDEM TARTRATE 5 MG TAB PO PRN (21:43)
[2017-01-01] MEDS: MONTELUKAST SODIUM 10 MG TAB PO SCH (21:43)
[2017-01-01] MEDS: FAMOTIDINE 20 MG TAB PO SCH (21:45)
[2017-01-02] VITALS: BP 113/72; PULSE 85; RESP 18; TEMP 98.2; O2SAT 97
[2017-01-02 00:22] VITALS: O2SAT 98
[2017-01-02] MEDS: RESP: ALBUTEROL 2.5 MG/IPRATROPIUM 0.5 MG NEB (SCH) NEB ×3 (00:22→11:40)
[2017-01-02 04:00] VITALS: BP 100/58; PULSE 93; RESP 18; TEMP 98.7; O2SAT 97
[2017-01-02 07:07] LABS: HEMATOCRIT 29.2 % (35.0-46.0); MEAN CELL VOLUME 83.1 FL (80.0-100.0); MEAN CORPUSCULAR HEMOGLOBIN 26.6 PG (27.0-34.0); MEAN CORPUSCULAR HGB CONC 32.1 % (32.0-36.0); PLATELET COUNT 308 TH/MM3 (150-450); RED BLOOD COUNT 3.52 MIL/MM3 (4.00-5.30); RED CELL DISTRIBUTION WIDTH 15.2 % (11.6-17.2); REVIEW FLAG FINAL; WHITE BLOOD COUNT 7.3 TH/MM3 (4.0-11.0)
[2017-01-02 07:28] LABS: BICARBONATE 30.3 MEQ/L (21.0-32.0); POTASSIUM 3.5 MEQ/L (3.5-5.1)
[2017-01-02] MEDS: INSULIN ASPART SUPPLEMENTAL SCALE SQ SCH ×2 (08:00→12:00)
[2017-01-02 08:05] VITALS: BP 96/68; PULSE 92; RESP 16; TEMP 98.7; O2SAT 94
[2017-01-02] MEDS: METOLAZONE 5 MG TAB PO SCH ×2 (09:00→13:28)
[2017-01-02] MEDS: BUDESONIDE-FORMOTEROL 160/4.5 MCG INHALER INH SCH (09:00)
[2017-01-02] MEDS: DOCUSATE SODIUM 50 MG/SENNA 8.6 MG TAB PO SCH (09:00)
[2017-01-02] MEDS: INSULIN DETEMIR 100 UNITS/ML VIAL SQ SCH (09:00)
[2017-01-02] MEDS: SODIUM CHLORIDE 0.9% FLUSH 10 ML FLUSH IV FLUSH SCH (09:00)
[2017-01-02] MEDS: FAMOTIDINE 20 MG TAB PO SCH (09:34)
[2017-01-02] MEDS: predniSONE 10 MG TAB PO SCH (09:34)
[2017-01-02] MEDS: AZITHROMYCIN 250 MG TAB PO SCH (09:34)
[2017-01-02] MEDS: ASPIRIN 81 MG CHEW TAB CHEW SCH (09:34)
[2017-01-02] MEDS: GABAPENTIN 400 MG CAP PO SCH (09:35)
[2017-01-02] MEDS: MYCOPHENOLATE MOFETIL 500 MG TAB PO SCH ×2 (09:35→13:28)
[2017-01-02] MEDS: BUMETANIDE 1 MG TAB PO SCH (09:35)
[2017-01-02] MEDS: ACETAMINOPHEN 325 MG TAB PO PRN ×2 (09:43→13:28)
[2017-01-02 10:17] VITALS: O2SAT 94
--- NOTE | 2017-01-02 11:02 | HHI.FPPN ---
Subjective Remarks Patient seen and examined this morning. Temp: 98.7, Pulse 92, RR 16, BP: 96/68, Pulse ox 94 on 3 L NC. She reports that she is wishing to go home today if possible. Informed her that we are awaiting the recs from OR for oral antibiotics. If she can tolerate her oral antibiotics we will discharge her home. She reports that she has been getting out of bed and walking around the room. She would like to restart outpatient rehab. Endorses: mild Shortness of breath Denies: Fever, chills, nausea, vomiting, chest pain, headache, abdominal pain, calf pain All other review of symptoms were negative (Louis Castro MD, R3) Objective Vitals Vital Signs Date Time Temp Pulse Resp B/P (MAP) Pulse Ox O2 Delivery O2 Flow Rate FiO2 01/02/17 10:17 94 Nasal Cannula 2.00 01/02/17 08:05 98.7 92 16 96/68 (77) 94 01/02/17 04:00 Nasal Cannula 3.00 01/02/17 04:00 98.7 93 18 100/58 (72) 97 01/02/17 00:22 98 Nasal Cannula 2.00 01/02/17 00:00 98.2 85 18 113/72 (86) 97 01/02/17 00:00 Nasal Cannula 3.00 01/01/17 20:00 98.3 83 18 108/60 (76) 98 01/01/17 20:00 Nasal Cannula 3.00 01/01/17 16:14 96 Nasal Cannula 3.00 01/01/17 16:05 98.6 91 18 105/55 (72) 96 01/01/17 16:00 Nasal Cannula 3.00 01/01/17 13:43 Nasal Cannula 3 01/01/17 13:43 97.7 83 20 99/63 (75) 96 01/01/17 12:05 98.4 100 18 111/64 (80) 96 I/O 01/01/17 01/01/17 01/01/17 01/02/17 01/02/17 01/02/17 07:00 15:00 23:00 07:00 15:00 23:00 Intake Total 0 ml 300 ml 480 ml 780 ml Output Total 2600 ml 200 ml Balance -2600 ml 300 ml 480 ml 580 ml Intake Oral 0 ml 380 ml 780 ml IV Total 300 ml 100 ml Output Urine Total 2600 ml 200 ml # Voids 4 2 # Bowel Movements 2 1 2 (Louis Castro MD, R3) Result Diagram: 01/02/1762501/02/17625 Imaging Last Impressions Chest X-Ray 12/30/16 1338 Signed Impressions: Service Date/Time: Friday, December 30, 2016 14:32 - CONCLUSION: Patchy areas of consolidation very similar to August. Erick Mack MD Objective Remarks GENERAL: Patient is an obese female lying in bed with nasal cannula in place. She is in no apparent distress at this time She reports feeling better today with her breathing and even requests to go home soon. SKIN: Warm and dry. No obvious rashes or ecchymoses. HEAD: Atraumatic. Normocephalic. EYES: Pupils equal and round. No scleral icterus. No injection or drainage. No conjunctival injection noted. ENT: No nasal bleeding or discharge. Mucous membranes pink and moist. Mild rhinorrhea, clear, noted NECK: Trachea midline. No JVD. CARDIOVASCULAR: Regular rate and rhythm. No obvious murmurs on auscultation. RESPIRATORY: No accessory muscle use. Bilateral lung be with coarse crackles at the bases bilaterally chronically. Breath sounds equal bilaterally. Moving air well GASTROINTESTINAL: Abdomen soft, non-tender, nondistended. Hepatic and splenic margins not palpable. MUSCULOSKELETAL: Extremities without clubbing, cyanosis, or edema. No obvious deformities. NEUROLOGICAL: Awake and alert. No obvious cranial nerve deficits. Motor grossly within normal limits. 5/5 strength in the arms and legs. Normal speech. PSYCHIATRIC: Appropriate mood and affect; insight and judgment normal. Medications and IVs Current Medications Medications (Trade) Dose Ordered Sig/Iván Route Start Time Stop Time Status Last Admin (NS Flush) 2 ml UNSCH PRN IV FLUSH 12/30/16 16:15 (NS Flush) 2 ml BID IV FLUSH 12/30/16 21:00 01/02/17 09:00 (Zofran Inj) 4 mg Q6H PRN IVP 12/30/16 16:15 (Ambien) 5 mg HS PRN PO 12/30/16 16:15 01/01/17 21:43 (Heparin Inj) 5,000 units Q12H SQ 12/30/16 17:00 Future Hold 12/31/16 17:03 (Narcan Inj) 0.4 mg UNSCH PRN IV PUSH 12/30/16 16:15 (Galina-Colace) 1 tab BID PO 12/30/16 21:00 12/31/16 09:00 (Milk Of Magnesia Liq) 30 ml Q12H PRN PO 12/30/16 16:15 (Senokot) 17.2 mg Q12H PRN PO 12/30/16 16:15 (Dulcolax Supp) 10 mg DAILY PRN RECTAL 12/30/16 16:15 (Lactulose Liq) 30 ml DAILY PRN PO 12/30/16 16:15 (Tylenol) 650 mg Q4H PRN PO 12/30/16 16:15 01/02/17 09:43 (Aspirin Chew) 81 mg DAILY CHEW 12/31/16 09:00 01/02/17 09:34 (Symbicort 160-4.5 Inh) 2 puff Q12HR INH 12/30/16 21:00 01/02/17 09:00 (Bumetanide) 1 mg BID PO 12/30/16 21:00 01/02/17 09:35 (Neurontin) 800 mg BID PO 12/30/16 21:00 01/02/17 09:35 (Zaroxolyn) 5 mg TID PO 12/30/16 18:00 01/02/17 09:00 (Singulair) 10 mg HS PO 12/30/16 21:00 01/01/17 21:43 (Duoneb Neb) 1 ampule Q4HR NEB NEB 12/30/16 20:00 01/02/17 05:17 (Zithromax) 500 mg DAILY PO 12/31/16 09:00 01/02/17 09:34 Ceftriaxone Sodium 1000 mg/ Sodium Chloride 100 ml @ 200 mls/hr Q24H IV 12/31/16 15:00 01/01/17 15:01 (Deltasone) 10 mg DAILY PO 12/31/16 09:00 01/02/17 09:34 (Levemir Inj) 25 units Q12HR SQ 12/30/16 21:00 01/02/17 09:00 (D50w (Vial) Inj) 50 ml UNSCH PRN IV PUSH 12/31/16 17:30 (Glucagon Inj) 1 mg UNSCH PRN OTHER 12/31/16 17:30 (NovoLOG SUPPLEMENTAL SCALE) 1 ACHS SLIDING SCALE SQ 12/31/16 17:30 01/02/17 08:00 (Tessalon) 100 mg TID PRN PO 01/01/17 08:30 01/01/17 21:43 (Cellcept) 500 mg TID PO 01/01/17 13:00 01/02/17 09:35 (Pepcid) 20 mg BID PO 01/01/17 21:00 01/02/17 09:34 (Louis Castro MD, R3) A/P Assessment and Plan 51F with extensive medical history including lupus, ILD, DM, CKD, on home oxygen 3L at baseline. She presents with upper respiratory symptoms with history concerning for PNA. She is notably on mycophenolate which may portend weakened immune system. Admit to inpatient for further management. Discharge Planning Pt wants to go home as soon as she is stable for discharge. Anticipate discharge today or tomorrow wdw: Dr. Rodríguez (Louis Castro MD, R3) Attending Attestation Patient seen and examined. Case reviewed and discussed with the resident team. Agree with plan of care as discussed with me and documented in the resident note. she is doing very well overall and her lupus is under good control (Noreen Rodríguez MD) Problem List: (1) Community acquired pneumonia ICD Codes: J18.9 - Pneumonia, unspecified organism Status: Acute Plan: Patient is improving on IV antibiotics * Rocephin and Azithromycin (12/30 - ) * Vital signs q4hr per protocol * UA with urine Legionella and Pneumococcal Ag: negative * Duonebs q4hr * Continue home medications - Singulair * Incentive spirometry * Supplemental oxygen with goal O2 sat >92% (on baseline home O2 @ 3L) * Holding mycophenolate due to side effect of ILD and immunosuppressive properties: will restart as soon as approved by ID * will ask ID for any advice on abx with mycophenolate. (2) Type 2 diabetes, controlled, with neuropathy ICD Codes: E11.40 - Type 2 diabetes mellitus with diabetic neuropathy, unspecified Status: Chronic Plan: Chronic. On Levemir 50 BID per EMR. Will continue Levemir but at reduced dose of 25 BID for now, titrate as appropriate. Supplemental Novolog PRN with schedule Accucheks. Hypoglycemia protocol if needed. A1c 7.5 (3) CKD (chronic kidney disease) stage 3, GFR 30-59 ml/min ICD Codes: N18.3 - Chronic kidney disease, stage 3 (moderate) Status: Acute Plan: GFR at baseline. Monitor BMP daily she is stable now with her renal fxn on immunosuppressants as her acute events of renal failure were lupus related (4) Anemia ICD Codes: D64.9 - Anemia, unspecified Status: Chronic Plan: Chronic. Stable. Continue to monitor. Patient reports outside lab stating she was positive for blood in stool * Hemoccult stool pending * GI consulted recs appreciated * EGD and Colonoscopy pending (5) GERD (gastroesophageal reflux disease) ICD Codes: K21.9 - Gastro-esophageal reflux disease without esophagitis Status: Chronic Plan: Chronic, stable. Continue Protonix 40mg PO daily (6) Interstitial lung disease ICD Codes: J84.9 - Interstitial pulmonary disease, unspecified Status: Chronic Plan: Restarted mycophenolate (7) Lupus ICD Codes: M32.9 - Systemic lupus erythematosus, unspecified Status: Acute Plan: Sees Dr. Larsen, on prednisone (patient unsure of dose). * Will continue prednisone at 10mg daily per med rec. * Continue mycophenolate (8) Nutrition, metabolism, and development symptoms ICD Codes: R63.8 - Other symptoms and signs concerning food and fluid intake Status: Acute Plan: Fluids: holding for now, PO hydration Electrolytes: monitor and replete as needed Nutrition: diabetic diet DVT Prophylaxis: Early ambulation. Heparin 5000U sq q12hr GI Prophylaxis: Home dose Protonix (Louis Castro MD, R3) Problem Qualifiers (1) Anemia: Qualified Codes: D64.89 - Other specified anemias (2) Lupus: Qualified Codes: M32.13 - Lung involvement in systemic lupus erythematosus Louis Castro MD, R3 Jan 02, 2017 11:02 Noreen Rodríguez MD Jan 03, 2017 13:53
[2017-01-02 12:05] VITALS: BP 118/64; PULSE 105; RESP 16; TEMP 98.3; O2SAT 96
--- NOTE | 2017-01-02 12:06 | HHI.GIFU ---
Subjective Remarks Resting in chair. No distress. States her throat is sore, but no n/v. No obvious blood loss. No abdominal pain. Feeling better. Objective Vitals I&O Vital Signs Date Time Temp Pulse Resp B/P (MAP) Pulse Ox O2 Delivery O2 Flow Rate FiO2 01/02/17 10:17 94 Nasal Cannula 2.00 01/02/17 08:05 98.7 92 16 96/68 (77) 94 01/02/17 04:00 Nasal Cannula 3.00 01/02/17 04:00 98.7 93 18 100/58 (72) 97 01/02/17 00:22 98 Nasal Cannula 2.00 01/02/17 00:00 98.2 85 18 113/72 (86) 97 01/02/17 00:00 Nasal Cannula 3.00 01/01/17 20:00 98.3 83 18 108/60 (76) 98 01/01/17 20:00 Nasal Cannula 3.00 01/01/17 16:14 96 Nasal Cannula 3.00 01/01/17 16:05 98.6 91 18 105/55 (72) 96 01/01/17 16:00 Nasal Cannula 3.00 01/01/17 13:43 Nasal Cannula 3 01/01/17 13:43 97.7 83 20 99/63 (75) 96 01/01/17 12:05 98.4 100 18 111/64 (80) 96 I/O 01/01/17 01/01/17 01/01/17 01/02/17 01/02/17 01/02/17 07:00 15:00 23:00 07:00 15:00 23:00 Intake Total 0 ml 300 ml 480 ml 780 ml Output Total 2600 ml 200 ml Balance -2600 ml 300 ml 480 ml 580 ml Intake Oral 0 ml 380 ml 780 ml IV Total 300 ml 100 ml Output Urine Total 2600 ml 200 ml # Voids 4 2 # Bowel Movements 2 1 2 Laboratory Laboratory Tests Test 01/02/17 06:26 White Blood Count 7.3 Red Blood Count 3.52 Hemoglobin 9.4 Hematocrit 29.2 Mean Corpuscular Volume 83.1 Mean Corpuscular Hemoglobin 26.6 Mean Corpuscular Hemoglobin Concent 32.1 Red Cell Distribution Width 15.2 Platelet Count 308 Mean Platelet Volume 7.3 Blood Urea Nitrogen 16 Creatinine 1.23 Random Glucose 153 Calcium Level 8.8 Sodium Level 140 Potassium Level 3.5 Chloride Level 100 Carbon Dioxide Level 30.3 Anion Gap 10 Estimat Glomerular Filtration Rate 55 Date/Time Source Procedure Growth Status 12/30/16 13:47 Blood Peripheral Aerobic Blood Culture - Preliminary NO GROWTH IN 3 DAYS Resulted 12/30/16 13:47 Blood Peripheral Anaerobic Blood Culture - Preliminary NO GROWTH IN 3 DAYS Resulted 12/30/16 14:08 Nasal Aspirate Influenza Types A,B Antigen (MARY ELLEN) - Final NEGATIVE FOR FLU A AND B ANTIGEN.... Complete 12/30/16 14:12 Urine Clean Catch Legionella Antigen - Final PRESUMPTIVE NEGATIVE FOR LEGIONELLA P... Complete 12/30/16 14:12 Urine Clean Catch Streptococcus pneumoniae Antigen (M - Final PRESUMPTIVE NEGATIVE FOR STREPTOCOCCU... Complete Imaging Last Impressions Chest X-Ray 12/30/16 1398 Signed Impressions: Service Date/Time: Friday, December 30, 2016 14:32 - CONCLUSION: Patchy areas of consolidation very similar to August. Erick Mack MD Physical Exam HEENT: Normocephalic; atraumatic; no jaundice. CHEST: CTA, diminished bases. O2 2L CARDIAC: RRR ABDOMEN: Soft, nondistended, nontender; no hepatosplenomegaly; bowel sounds are present in all four quadrants. EXTREMITIES: No clubbing, cyanosis, or edema. SKIN: Normal; no rash; no jaundice. SUPPLY CHAIN ENGINEER: No focal deficits; alert and oriented times three. Assessment and Plan Plan ASSESSMENT: - Hemoccult positive stool, SHAKIR. Recently found to have Hemoccult positive stool, in the process of being referred to GI by primary. (+) Gerd/reflux. No other obvious GI symptoms. Of note, had microscopic colitis on prior colonoscopy 2013. S/P EGD/Colonoscopy (01/01/17)----> 1. Gastritis antrum-biopsy esophagitis distal esophagus- biopsy 2. Retroflexed views revealed a hiatal hernia. 1. Diverticulosis sigmopid, descending 2. Retroflexed views revealed internal hemorrhoids 3. Retroflexed views revealed small internal hemorrhoids 4. Revealed hemorrhoids. Pathology pending. No obvious blood loss. 9.07/28.2. - GERD, ? Aspiration from reflux. EGD as above. Pathology pending. Change Pepcid to protonix. - HCAP, COPD, Pulmonary fibrosis. Nebs, Abx, Steroids per attending. ID following - VISHNU, Lupus, DM, per attending - Hx nonspecific colitis in 2013. PLAN: - PARVIZ - Await pathology - D/C Pepcid - Protonix 40mg po daily - Okay to d/c home from GI standpoint - FU YANET 2 weeks - Consider capsule endoscopy as outpatient - GI will sign off, please reconsult as needed - Pt seen and examined by Dr. Tapia and myself and this note is written on her behalf Klarissa Blair Jan 02, 2017 12:06
--- NOTE | 2017-01-02 13:08 | HHI.DCPOC ---
Discharge Care Plan Diagnosis: (1) Community acquired pneumonia (2) DM (diabetes mellitus) (3) Lupus Goals to Promote Your Health * To prevent worsening of your condition and complications * To maintain your health at the optimal level Directions to Meet Your Goals Take your medications as prescribed Follow your dietary instruction Follow activity as directed Keep your appointments as scheduled Take your immunizations and boosters as scheduled If your symptoms worsen call your PCP, if no PCP go to Urgent Care Center or Emergency Room Smoking is Dangerous to Your Health. Avoid second hand smoke Call the 24-hour hour crisis hotline for domestic abuse at Louis Castro MD, R3 Jan 02, 2017 13:08
[2017-01-02] MEDS ORDERED: LEVO750T3 PO (13:09)
--- NOTE | 2017-01-02 13:19 | HHI.DS ---
Discharge Summary Admission Date Dec 30, 2016 at 15:26 Discharge Date: Jan 02, 2017 Admitting Diagnosis pneumonia, sepsis (1) Community acquired pneumonia Diagnosis: Principal Plan: Patient is improving on IV antibiotics * Rocephin and Azithromycin (12/30 - ) * Vital signs q4hr per protocol * UA with urine Legionella and Pneumococcal Ag: negative * Duonebs q4hr * Continue home medications - Singulair * Incentive spirometry * Supplemental oxygen with goal O2 sat >92% (on baseline home O2 @ 3L) * Holding mycophenolate due to side effect of ILD and immunosuppressive properties: will restart as soon as approved by ID * will ask ID for any advice on abx with mycophenolate. ICD Codes: J18.9 - Pneumonia, unspecified organism Status: Acute (2) Type 2 diabetes, controlled, with neuropathy Diagnosis: Secondary Plan: Chronic. On Levemir 50 BID per EMR. Will continue Levemir but at reduced dose of 25 BID for now, titrate as appropriate. Supplemental Novolog PRN with schedule Accucheks. Hypoglycemia protocol if needed. A1c 7.5 ICD Codes: E11.40 - Type 2 diabetes mellitus with diabetic neuropathy, unspecified Status: Chronic (3) CKD (chronic kidney disease) stage 3, GFR 30-59 ml/min Diagnosis: Secondary Plan: GFR at baseline. Monitor BMP daily she is stable now with her renal fxn on immunosuppressants as her acute events of renal failure were lupus related ICD Codes: N18.3 - Chronic kidney disease, stage 3 (moderate) Status: Acute (4) Anemia Diagnosis: Secondary Plan: Chronic. Stable. Continue to monitor. Patient reports outside lab stating she was positive for blood in stool * Hemoccult stool pending * GI consulted recs appreciated * EGD and Colonoscopy pending ICD Codes: D64.9 - Anemia, unspecified Status: Chronic (5) GERD (gastroesophageal reflux disease) Diagnosis: Secondary Plan: Chronic, stable. Continue Protonix 40mg PO daily ICD Codes: K21.9 - Gastro-esophageal reflux disease without esophagitis Status: Chronic (6) Interstitial lung disease Diagnosis: Secondary Plan: Restarted mycophenolate ICD Codes: J84.9 - Interstitial pulmonary disease, unspecified Status: Chronic (7) Lupus Diagnosis: Secondary Plan: Sees Dr. Larsen, on prednisone (patient unsure of dose). * Will continue prednisone at 10mg daily per med rec. * Continue mycophenolate ICD Codes: M32.9 - Systemic lupus erythematosus, unspecified Status: Acute (8) Nutrition, metabolism, and development symptoms Diagnosis: Secondary Plan: Fluids: holding for now, PO hydration Electrolytes: monitor and replete as needed Nutrition: diabetic diet DVT Prophylaxis: Early ambulation. Heparin 5000U sq q12hr GI Prophylaxis: Home dose Protonix ICD Codes: R63.8 - Other symptoms and signs concerning food and fluid intake Status: Acute Consultants Pulmonology, Infectious Disease Brief History Patient is a 51 year old female with lupus, ILD, COPD, DM, CKD, on home oxygen 3L at baseline. She presented from home due to URI symptoms and fevers 101 at home, mild cough and sore throat. She reports no cough. She reports O@ sat at low at 77% at home. No recent travel. She does endorse chest pain with exertion , midsternal pressure of 5/10 intensity at its worst. It comes and goes. She notes her ankles are tight now, but no obvious swelling. She cannot lie flat to sleep, 4-5 pillow orthopnea. No PND. She endorses mild chronic HAs, on Tylenol PRN at home. In ED evaluation she is noted to have dyspnea on exertion but does have O2 sat 96% on O2 approximately 2 L. Evaluation also revealed the following: WBC 12.4 Lactate 3.6 Decreased GFR consistent with baseline CXR: consolidated changes similar from previous examination She is a patient of Dr. Engle, had URI symptoms on 11/28 with sick contacts, received Augmentin which she finished. She did not have any new symptoms aside from intermittent runny nose up until a few days ago. She decided not to come to ED yesterday due to improvement in SOB yesterday. She follows with many specialists including Dr. Larsen for rheumatology, who prescribes her prednisone and mycophenolate. Prednisone was decreased to reportedly 2.5 or 5mg daily (she has been taking 2.5mg but is thinking she misunderstood the dosing). CBC/BMP: 01/02/17 0626 01/02/17 0626 Significant Findings Laboratory Tests Test 12/30/16 13:47 12/30/16 14:12 12/30/16 15:39 12/30/16 20:50 White Blood Count 12.4 TH/MM3 (4.0-11.0) Red Blood Count 3.72 MIL/MM3 (4.00-5.30) Hemoglobin 9.9 GM/DL (11.6-15.3) Hematocrit 31.6 % (35.0-46.0) Mean Corpuscular Hemoglobin 26.6 PG (27.0-34.0) Mean Corpuscular Hemoglobin Concent 31.3 % (32.0-36.0) Neutrophils (%) (Auto) 81.4 % (16.0-70.0) Monocytes (%) (Auto) 8.1 % (0.0-8.0) Neutrophils # (Auto) 10.1 TH/MM3 (1.8-7.7) Monocytes # (Auto) 1.0 TH/MM3 (0-0.9) Blood Urea Nitrogen 32 MG/DL (7-18) Creatinine 1.66 MG/DL (0.50-1.00) Random Glucose 158 MG/DL (74-106) Albumin 3.1 GM/DL (3.4-5.0) Calcium Level 8.3 MG/DL (8.5-10.1) Estimat Glomerular Filtration Rate 39 ML/MIN (>89) Lactic Acid Level 3.6 mmol/L (0.4-2.0) Lipase 69 U/L (73-393) Urine Protein 30 mg/dL (NEG-TRACE) Urine Bacteria RARE /hpf (NONE) Urine Mucus FEW /lpf (OCC) Troponin I LESS THAN 0.02 NG/ML Test 12/31/16 03:24 01/01/17 07:10 01/02/17 06:26 Red Blood Count 3.38 MIL/MM3 (4.00-5.30) 3.40 MIL/MM3 (4.00-5.30) 3.52 MIL/MM3 (4.00-5.30) Hemoglobin 8.9 GM/DL (11.6-15.3) 9.0 GM/DL (11.6-15.3) 9.4 GM/DL (11.6-15.3) Hematocrit 28.4 % (35.0-46.0) 28.2 % (35.0-46.0) 29.2 % (35.0-46.0) Mean Corpuscular Hemoglobin 26.5 PG (27.0-34.0) 26.4 PG (27.0-34.0) 26.6 PG (27.0-34.0) Mean Corpuscular Hemoglobin Concent 31.5 % (32.0-36.0) 31.7 % (32.0-36.0) Neutrophils (%) (Auto) 74.6 % (16.0-70.0) Monocytes (%) (Auto) 8.6 % (0.0-8.0) Blood Urea Nitrogen 26 MG/DL (7-18) 24 MG/DL (7-18) Creatinine 1.36 MG/DL (0.50-1.00) 1.22 MG/DL (0.50-1.00) 1.23 MG/DL (0.50-1.00) Albumin 2.9 GM/DL (3.4-5.0) Calcium Level 8.3 MG/DL (8.5-10.1) 8.4 MG/DL (8.5-10.1) Estimat Glomerular Filtration Rate 49 ML/MIN (>89) 56 ML/MIN (>89) 55 ML/MIN (>89) Hemoglobin A1c 7.5 % (4.3-6.0) Troponin I LESS THAN 0.02 NG/ML Potassium Level 3.3 MEQ/L (3.5-5.1) Random Glucose 153 MG/DL (74-106) Imaging Last Impressions Chest X-Ray 12/30/16 1338 Signed Impressions: Service Date/Time: Friday, December 30, 2016 14:32 - CONCLUSION: Patchy areas of consolidation very similar to August. Erick Mack MD PE at Discharge GENERAL: Patient is an obese female lying in bed with nasal cannula in place. She is in no apparent distress at this time She reports feeling better today with her breathing and even requests to go home soon. SKIN: Warm and dry. No obvious rashes or ecchymoses. HEAD: Atraumatic. Normocephalic. EYES: Pupils equal and round. No scleral icterus. No injection or drainage. No conjunctival injection noted. ENT: No nasal bleeding or discharge. Mucous membranes pink and moist. Mild rhinorrhea, clear, noted NECK: Trachea midline. No JVD. CARDIOVASCULAR: Regular rate and rhythm. No obvious murmurs on auscultation. RESPIRATORY: No accessory muscle use. Bilateral lung be with coarse crackles at the bases bilaterally chronically. Breath sounds equal bilaterally. Moving air well GASTROINTESTINAL: Abdomen soft, non-tender, nondistended. Hepatic and splenic margins not palpable. MUSCULOSKELETAL: Extremities without clubbing, cyanosis, or edema. No obvious deformities. NEUROLOGICAL: Awake and alert. No obvious cranial nerve deficits. Motor grossly within normal limits. 5/5 strength in the arms and legs. Normal speech. PSYCHIATRIC: Appropriate mood and affect; insight and judgment normal. Hospital Course Patient was admitted on 12/30/16 for Community acquired pneumonia. She was started on IV antibiotics and progressively improved. Due to the patient being on immunocompromising medications due to her Lupus, infectious disease was consulted. She reported a history of + hemacult and GI was consulted. She received a colonoscopy and EGD during this hospitalization and found to have gastritis and diverticulosis. No more bloody stools during this hospitalization. She was determined to be stable on 01/02/17 for discharge on oral antibioitcs consisting of Levaquin. Pt Condition on Discharge: Stable Discharge Disposition: Discharge Home Discharge Instructions DIET: Follow Instructions for: Diabetic Diet Activities you can perform: Regular-No Restrictions Follow up Referrals: Gastroenterology - 2 Weeks @ [facility] New Orders: Physical Therapy - 2-3 Days New Medications: Levofloxacin (Levofloxacin) 750 Mg Tablet 750 MG PO Q48H for Infection, #7 TAB 0 Refills Continued Medications: Albuterol 18 GM Inh (Ventolin Hfa 18 GM Inh) 90 Mcg/Act Aer 2 PUFF INH Q4H PRN for SHORTNESS OF BREATH, #1 INHALER 0 Refills Albuterol Neb (Albuterol Neb) 2.5 Mg/3 Ml Neb 2.5 MG NEB Q4HR NEB PRN for SHORTNESS OF BREATH, #60 NEBULE 0 Refills Aspirin (Aspirin 81 Low Dose) 81 Mg Chew 81 MG CHEW DAILY, #90 TAB 2 Refills Budesonide-Formoterol Inh (Symbicort Inh) 160-4.5 Mcg/Act Aero 2 PUFF INH Q12HR, #1 INHALER Bumetanide (Bumetanide) 1 Mg Tab 1 MG PO BID, #60 TAB 2 Refills Ferrous Sulfate (Iron High-Potency) 325 Mg Tab 325 MG PO BID, #90 TAB 3 Refills Gabapentin (Gabapentin) 800 Mg Tab 800 MG PO BID, #90 TAB 2 Refills Insulin Aspart Inj (Novolog Inj) 100 Unit/Ml Inj 35 UNITS SQ ACHS SLIDING SCALE, #30 INJECTION Insulin Detemir Inj (Levemir Inj) 1,000 unit/ 10 ML Vial 50 UNITS SQ BID, #30 INJECTION Please tkae 50 units in am and 40 units in PM. Ipratropium-Albuterol Neb (Duoneb) 0.5-2.5 Mg/3 Ml Neb 1 NEBULE INH HS for Breathing Treatment, #30 NEBULE 0 Refills Metolazone (Metolazone) 5 Mg Tab 5 MG PO TID, #30 TAB 0 Refills Montelukast (Singulair) 10 Mg Tab 10 MG PO HS, #90 TAB 1 Refill Mycophenolate (Mycophenolate) 500 Mg Tab 500 MG PO TID for Immunosuppression, #120 TAB 0 Refills Onetouch Delica Lancets E (Onetouch Delica Lancets E) 1 Mis Mis 1 EA .ROUTE DIRECTED for Blood Sugar Management, #100 BOX 6 Refills Onetouch Ultra Test Strips (Onetouch Ultra Test Strips) 1 Ecleste Celeste 1 STRIP .ROUTE DIRECTED for Blood Sugar Management, #180 BOX 0 Refills Oxygen tank (Oxygen tank) 1 Ea Tank 2 LITER VARSHA.CANULA CONTINUOUS for HYPOXEMIA PREVENTION, #1 CYLINDER 99 Refills Oxygen Concentrator Portable Gaseous 2 L/min via Nasal Cannula Continuous For 99 months Pantoprazole (Protonix) 40 Mg Tab 40 MG PO DAILY for Reflux, #60 TAB 1 Refill Prednisone (Prednisone) 10 Mg Tab 10 MG PO DAILY, #30 TAB 1 Refill Wheelchair (Wheelchair) 1 Mis Mis 1 EA .ROUTE DIRECTED PRN for DYSPNEA, #1 EA 0 Refills Use for 99 years + [Physical Therapy] () Louis Castro MD, R3 Jan 02, 2017 13:18
--- NOTE | 2017-01-02 14:26 | HHI.PR ---
Addendum to Inpatient Note Addendum Reason: Additional Documentation Additional Information D/w : Ok to DC home on oral levaquin or augmentin as tolerated. Will sign off please call back if any change in clinical condition or questions. Ninfa Oneill MD Jan 02, 2017 14:26
[2017-01-03] MEDS ORDERED: PANTOPRAZOLE SOD 40 MG DELAYED RELEASE TAB PO SCH (09:00)
--- NOTE | 2017-01-05 11:24 | PQ ---
Physician Query Response Document PATIENT: LYN BRADLEY : 1965 ADMIT DATE: 12/30/2016 3:26 PM DISCH DATE: 01/02/2017 3:21 PM RESPONDING PROVIDER #: Chris QUERY TEXT: Rule Out Sepsis Clarification Sepsis is documented in the Medical Record. Please clarify whether: -- Patient has sepsis - Please document confirmed, suspected or probable causative organism - Please document confirmed, suspected or probable localized infection - Please clarify if sepsis is related to a device - Please clarify if sepsis was present on admission -- Sepsis was ruled out (include corresponding diagnosis for patient?s clinical picture and treatment ) -- Patient had sepsis which is resolved -- Other, please specify If you have any additional questions/comments and/or concerns, please do not hesitate to reach out to the [facility]I/Coding Hotline, Ext. [phone]. The patient's Clinical Indicators include: H Problem list on H WBC 12.4. Consult by Dr. Oneill 12/31/16-under Assessment and Plan : Possible sepsis on admission (Immune compromised host with leucocytosis and pneumonia) Sepsis NOT listed as diagnosis on Discharge Summary. Query created by: Amy Pop on 01/03/2017 12:49 PM RESPONSE TEXT: She was meeting septic criteria with leukocytosis plus increased pulse. Electronically signed by: Noreen Rodríguez MD 01/05/2017 11:19 AM
[2017-01-07] MEDS ORDERED: BUME1TAB PO (11:35)
[2017-01-21] MEDS ORDERED: NOVOLOGSS SQ (13:49)
[2017-01-21] MEDS ORDERED: LEVEMIR SQ (13:49)
[2017-01-21] MEDS ORDERED: GABA800T PO (13:52)
== END 2017-01-02 15:21 | disposition home or self-care (01) | DRG 871 ==
LOC: NEPC 13:05 → NEDA 15:26 → N04A 16:55
PROVIDERS: ADMIT Family Medicine; ATTEND Family Medicine
PROC: 0DJD8ZZ Inspection of Lower Intestinal Tract, Via Natural or Artificial Opening Endoscopic (ICD-10-PCS; 2017-01-01)
PROC: 0DB38ZX Excision of Lower Esophagus, Via Natural or Artificial Opening Endoscopic, Diagnostic (ICD-10-PCS; principal; 2017-01-01 13:08)
PROC: 0DB68ZX Excision of Stomach, Via Natural or Artificial Opening Endoscopic, Diagnostic (ICD-10-PCS; 2017-01-01 13:08)
DX: A41.9 Sepsis, unspecified organism (principal); J18.9 Pneumonia, unspecified organism; J84.9 Interstitial pulmonary disease, unspecified; E11.40 Type 2 diabetes mellitus with diabetic neuropathy, unspecified; N17.9 Acute kidney failure, unspecified; J96.10 Chronic respiratory failure, unspecified whether with hypoxia or hypercapnia; M32.9 Systemic lupus erythematosus, unspecified; N18.3 Chronic kidney disease, stage 3 (moderate); J44.0 Chronic obstructive pulmonary disease with (acute) lower respiratory infection; Z79.4 Long term (current) use of insulin; I12.9 Hypertensive chronic kidney disease with stage 1 through stage 4 chronic kidney disease, or unspecified chronic kidney disease; Z99.81 Dependence on supplemental oxygen; K21.9 Gastro-esophageal reflux disease without esophagitis; G47.33 Obstructive sleep apnea (adult) (pediatric); E66.9 Obesity, unspecified; Z68.34 Body mass index [BMI] 34.0-34.9, adult; Z79.52 Long term (current) use of systemic steroids; Z79.82 Long term (current) use of aspirin; K44.9 Diaphragmatic hernia without obstruction or gangrene; K64.8 Other hemorrhoids; Z87.891 Personal history of nicotine dependence; D64.89 Other specified anemias
CPT/HCPCS: 71010; 80048; 80053; 81001; 82550; 82948; 83036; 83605; 83690; 83735; 84484; 85025; 85027; 87040; 87086; 87449; 87804; 88305; 88312; 93005; 94150; 94640; 94664; J0456; J0696; J1644; J1815; J7040; J7050; J7512; J7517

== ENCOUNTER → 2017-02-13 | Outpatient (CLI) | payer MEDICAID ==
[~2017-02-13] MED LIST changes: -AMOX875T2 PO; +ASPI1CHW4 CHEW; -ASPI1TAB69 PO; -ASPI81CH3 CHEW; +BENZ1CAP54 PO; +CALC0.25 PO; -FERR1TAB52 PO; -FERR325T PO; +FERR325T98 PO; +KLOR10TA PO; +LEVO750T3 PO; +LOSA25TA PO; +PRED2.5T PO; +ZOLP5TAB3 PO
== END ==
LOC: CLAB 10:24
PROVIDERS: ATTEND Family Medicine
DX: R79.89 Other specified abnormal findings of blood chemistry (principal)
CPT/HCPCS: 82652; 96365

== ENCOUNTER 2017-04-17 04:50 | Inpatient (IN) | payer MEDICAID ==
[~2017-04-17] VITALS: Ht 172.7 cm; Wt 98.3 kg
[2017-04-17] VITALS (16 sets, daily range): BP systolic 101–145; BP diastolic 57–90; PULSE 78–106; RESP 18–34; TEMP 98.4–98.8; O2SAT 85–100
[~2017-04-17 04:50] MED LIST changes: +BATH/SHOWER SEA1 MI1; -LEVO750T3 PO; -METO5TAB3 PO; -PRED10 PO; +TERC.4%V VAGINAL; +[UNRECOGNIZED DRUG - CODE] PO; +[UNRECOGNIZED DRUG - CODE] PO
[2017-04-17] MEDS ORDERED: SODIUM CHLORIDE 0.9% FLUSH 10 ML FLUSH IVF PRN (05:00)
[2017-04-17] MEDS ORDERED: methylPREDNISolone SOD SUCC 125 MG/2 ML VIAL IV PUSH ONE (05:00)
[2017-04-17] MEDS ORDERED: CEFEPIME INJ 2,000 MG in SODIUM CHLORIDE 0.9% INJ 100 ML IV ONE (05:00)
[2017-04-17] MEDS ORDERED: AZITHROMYCIN INJ 500 MG in SODIUM CHLOR 0.9% 250 ML INJ 250 ML IV ONE (05:00)
[2017-04-17 05:13] LABS: AUTOMATED NEUTROPHIL # 7.2 TH/MM3 (1.8-7.7); BASOPHIL % 0.2 % (0.0-2.0); EOSINOPHIL % 0.2 % (0.0-4.0); HEMATOCRIT 29.1 % (35.0-46.0); HEMOGLOBIN 9.3 GM/DL (11.6-15.3); LYMPHOCYTE # 1.3 TH/MM3 (1.0-4.8); MEAN CELL VOLUME 85.5 FL (80.0-100.0); MEAN CORPUSCULAR HEMOGLOBIN 27.5 PG (27.0-34.0); MEAN CORPUSCULAR HGB CONC 32.1 % (32.0-36.0); MEAN PLATELET VOLUME 7.3 FL (7.0-11.0); MONO % 7.1 % (0.0-8.0); MONOCYTE # 0.7 TH/MM3 (0-0.9); NEUT % 78.5 % (16.0-70.0); PLATELET COUNT 320 TH/MM3 (150-450); RED CELL DISTRIBUTION WIDTH 15.2 % (11.6-17.2); WHITE BLOOD COUNT 9.2 TH/MM3 (4.0-11.0)
[2017-04-17] MEDS ORDERED: ONDANSETRON HCL 4 MG/2 ML VIAL ONE (05:13)
[2017-04-17 05:26] LABS: D-DIMER 1.36 MG/L FEU (0.00-0.50); INTERNATIONAL NORMALIZED RATIO 1.1 RATIO; PROTHROMBIN TIME - PATIENT 10.8 SEC (9.8-11.6)
[2017-04-17] MEDS: RESP: ALBUTEROL 2.5 MG/IPRATROPIUM 0.5 MG NEB (SCH) INH ×7 (05:27→23:40)
[2017-04-17 05:28] LABS: ALBUMIN 2.8 GM/DL (3.4-5.0); ALT (GPT) 42 U/L (10-53); AST (GOT) 29 U/L (15-37); BLOOD UREA NITROGEN 21 MG/DL (7-18); CALCIUM 8.3 MG/DL (8.5-10.1); CHLORIDE 100 MEQ/L (98-107); CREATININE 1.64 MG/DL (0.50-1.00); GLOMERULAR FILTRATION RATE 40 ML/MIN (>89); GLUCOSE,RANDOM 256 MG/DL (74-106); MAGNESIUM 1.4 MG/DL (1.5-2.5); SODIUM (NA) 137 MEQ/L (136-145)
[2017-04-17] MEDS ORDERED: ONDANSETRON HCL 4 MG/2 ML VIAL IV ONE (05:30)
[2017-04-17 05:33] LABS: ALKALINE PHOSPHATASE 140 U/L (45-117); TOTAL BILIRUBIN ADULT 0.4 MG/DL (0.2-1.0); TOTAL PROTEIN 7.7 GM/DL (6.4-8.2); TROPONIN I LESS THAN 0.02 NG/ML (0.02-0.05)
[2017-04-17 05:48] LABS: LACTIC ACID SEPSIS PROTOCOL 4.3 mmol/L (0.4-2.0)
[2017-04-17] MEDS ORDERED: SODIUM CHLOR 0.9% 1000 ML INJ 300 ML IV ONE (05:48)
[2017-04-17] MEDS ORDERED: SODIUM CHLOR 0.9% 1000 ML INJ 1,000 ML IV ONE ×3 (05:48)
--- NOTE | 2017-04-17 06:05 | RADRPT ---
EXAM DATE/TIME: 04/17/2017 05:17 [facility] COMPARISON: CHEST SINGLE AP, December 30, 2016, 14:32. INDICATIONS : Short of breath. MEDICAL HISTORY : None. SURGICAL HISTORY : None. ENCOUNTER: Initial ACUITY: 1 day PAIN SCORE: 0/10 LOCATION: Bilateral chest FINDINGS: The heart size is enlarged. There is increased density lateral left mid chest at least partially rela marcial to the overlying scapula. The lungs appear otherwise clear. CONCLUSION: Cardiomegaly. There is increased density at the lateral left mid chest mainly related to the overlyin g scapula. Some degree of consolidation or atelectasis cannot be excluded. Edwin Duncan MD on April 17, 2017 at 6:00 Board Certified Radiologist. This report was verified electronically.
--- NOTE | 2017-04-17 06:50 | PD ---
HPI Chief Complaint: Respiratory Distress Time Seen by Provider: 04:56 Travel History International Travel<30 days: No Contact w/Intl Traveler<30days: No Traveled to known affect area: No History of Present Illness HPI The patient is a 51 year old female who presents to the [facility] emergency department with a history of cough, congestion that began on Saturday, 5 days ago. The patient reports that she's had a cough productive of yellow sputum. She reports that she's had increasing shortness of breath since yesterday. The patient reports that she's had generalized weakness. She's had a fever with a MAXIMUM TEMPERATURE of 101. She saw her learning center instructor, Dr. Boggs on Saturday and was given a prescription for antibiotic, however she did not get the prescription filled until Saturday. She reports that she had trouble with transportation. The patient reports that the shortness of breath became worse this evening and she called ambulance services area upon ambulance services arrival the patient was noted to be dyspneic. The patient normally is on 3-4 L of oxygen continuously with a history of COPD and pulmonary fibrosis. She had a nasal cannula in place, however the oxygen was not turned on. The patient's O2 saturations at that time were 92%, however the patient was noted to be tachypneic in the mid 20s. The patient was reportedly placed back on oxygen at 4 L and her O2 saturation improved. The patient has a history of diabetes her blood sugar was reportedly 199 earlier in the evening according to the patient. She reports that she has been administering her insulin regularly. She is followed by the [facility] for primary care. On review of systems otherwise, the patient reports having a yellow rhinorrhea. She denies any prior history of myocardial infarction, congestive heart failure , pulmonary embolism, or DVT. She is on low-dose aspirin daily. She reports having chest tightness in the center of her chest with taking a deep breath. She denies having any neck pain, abdominal pain, vomiting, diarrhea, urinary symptoms, or neurologic symptoms other than generalized weakness. The patient is pale appearing on arrival. She reports that she has a history of anemia. She denies ever having a blood transfusion previously. PFSH Past Medical History Narrative Medical , History of COPD, pulmonary fibrosis, osteoarthritis, headaches, anxiety disorder, chronic renal insufficiency, hypertension, history of systemic lupus erythematosus Hx Anticoagulant Therapy: Yes (asa) Anemia: Yes Arthritis: Yes Asthma: Yes Autoimmune Disease: Yes (LUPUS) Anxiety: Yes Depression: No Heart Rhythm Problems: No Cancer: No Cardiovascular Problems: No High Cholesterol: No Chemotherapy: No Chest Pain: No Congestive Heart Failure: No COPD: Yes Cerebrovascular Accident: No Coronary Artery Disease: No Diabetes: Yes Patient Takes Glucophage: No Diminished Hearing: No Endocrine: Yes Gastrointestinal Disorders: Yes GERD: Yes Glaucoma: No Genitourinary: Yes Headaches: Yes Hepatitis: No Hiatal Hernia: No Heparin Induced Thrombocytopen: No Hypertension: Yes Immune Disorder: Yes Implanted Vascular Access Dvce: Yes Kidney Stones: No Musculoskeletal: No Neurologic: No Psychiatric: Yes Reproductive: No Respiratory: Yes Immunizations Current: No Migraines: Yes Radiation Therapy: No Renal Failure: Yes Seizures: No Sickle Cell Disease: No Sleep Apnea: Yes Thyroid Disease: No Ulcer: No Tetanus Vaccination: < 5 Years Influenza Vaccination: Yes ?: Not Menopausal: Yes : 3 Para: 1 Miscarriage: 2 Past Surgical History Narrative Surgical The patient's past surgical history is significant for right ankle ORIF, bilateral tubal ligation, kidney biopsy, lung biopsy. Abdominal Surgery: No AICD: No Arteriovenous Shunt: No Body Medical Devices: right ankle screws and plates Cardiac Surgery: No Ear Surgery: No Endocrine Surgery: No Eye Surgery: No Genitourinary Surgery: Yes (KIDNEY BIOPSY) Gynecologic Surgery: No Hysterectomy: Yes Insulin Pump: No Joint Replacement: No Neurologic Surgery: No Oral Surgery: No Pacemaker: No Thoracic Surgery: Yes (LUNG BIOPSY ) Other Surgery: Yes (Ankle Surgery) Social History Alcohol Use: No Tobacco Use: No (quit 10 years ago) Substance Use: No Allergies-Medications (Allergen,Severity, Reaction): Coded Allergies: *MDRO Multi-Drug Resistant Organism (Verified Adverse Reaction, Unknown, ) 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 Pt does not require isolation for hx of MDRO prior to 05/11/15* Reported Meds & Prescriptions Reported Meds & Active Scripts Active Bumetanide 1 Mg Tab 1 Mg PO BID Glucerna Therapeutic Nutrition (Nut.tx.gluc.intoler,Lac-Fr,Soy) 237 Ml Liquid 1 Bottle PO DAILY Bath/Shower Seat with Ashlie (Device) 1 Mis Mis Ea .ROUTE DIRECTED Wheelchair (Device) 1 Mis Mis Ea .ROUTE DIRECTED Protonix (Pantoprazole Sodium) 40 Mg Tab 40 Mg PO DAILY Albuterol Neb (Albuterol Sulfate) 2.5 Mg/3 Ml Neb 2.5 Mg NEB Q4HR NEB PRN Gabapentin 800 Mg Tab 800 Mg PO BID Novolog Inj (Insulin Aspart) 100 Unit/Ml Inj 35 Units SQ ACHS SLIDING SCALE Levemir Inj (Insulin Detemir) 1,000 unit/ 10 ML Vial 50 Units SQ BID Please tkae 50 units in am and 40 units in PM. Onetouch Ultra Test Strips (Blood Glucose Test Strips) 1 Celeste Celeste 1 Strip .ROUTE DIRECTED Ventolin Hfa 18 GM Inh (Albuterol Sulfate) 90 Mcg/Act Aer 2 Puff INH Q4H PRN Iron High-Potency (Ferrous Sulfate) 325 Mg Tab 325 Mg PO BID Singulair (Montelukast Sodium) 10 Mg Tab 10 Mg PO HS Mycophenolate (Mycophenolate Mofetil) 500 Mg Tab 500 Mg PO TID Wheelchair (Device) 1 Mis Mis 1 Ea .ROUTE DIRECTED PRN Use for 99 years + Aspirin 81 Low Dose (Aspirin) 81 Mg Chew 81 Mg CHEW DAILY Onetouch Delica Lancets E 1 Mis Mis 1 Ea .ROUTE DIRECTED Duoneb (Ipratropium-Albuterol Neb) 0.5-2.5 Mg/3 Ml Neb 1 Nebule INH HS Oxygen tank (Oxygen) 1 Ea Tank 2 Liter VARSHA.CANULA CONTINUOUS Oxygen Concentrator Portable Gaseous 2 L/min via Nasal Cannula Continuous For 99 months [Physical Therapy] Symbicort Inh (Budesonide/Formoterol Fumarate) 160-4.5 Mcg/Act Aero 2 Puff INH Q12HR Reported Esbriet (Pirfenidone) 267 Mg Cap 267 Mg PO TID Klor-Con 10 (Potassium Chloride) 10 Meq Tab 10 Meq PO DAILY Calcitriol 0.25 Mcg Cap 0.25 Mcg PO DAILY Prednisone 2.5 Mg Tab 2.5 Mg PO BID Zolpidem (Zolpidem Tartrate) 5 Mg Tab 5 Mg PO HS PRN Losartan (Losartan Potassium) 25 Mg Tab 25 Mg PO DAILY Review of Systems Except as stated in HPI: all other systems reviewed are Neg General / Constitutional: No: Fever Eyes: No: Visual changes HENT: Positive: Rhinorrhea, Congestion, No: Headaches Cardiovascular: Positive: Dyspnea on exertion, No: Chest Pain or Discomfort Respiratory: Positive: Cough, Shortness of Breath, Wheezing Gastrointestinal: Positive: Nausea, No: Vomiting, Diarrhea, Abdominal Pain Genitourinary: No: Dysuria Musculoskeletal: No: Pain Skin: No Rash Neurologic: Positive: Weakness (generalized weakness), No: Focal Abnormalities , Change in Mentation, Slurred Speech, Sensory Disturbance Psychiatric: No: Depression Endocrine: No: Polydipsia Hematologic/Lymphatic: No: Easy Bruising Physical Exam Narrative General: The patient is a well-developed well-nourished female, short of breath on arrival tachypneic with conversational dyspnea. Head and Neck exam: Head is normocephalic atraumatic. Eyes: EOMI, pupils are equal round and reactive to light. Nose: Midline septum with pink mucous membranes Mouth: Dentition unremarkable. Moist mucus membranes. Posterior oropharynx is not erythematous. No tonsillar hypertrophy. Uvula midline. Airway patent. Neck: No palpable lymphadenopathy. No nuchal rigidity. No thyromegaly. Cardiovascular: Sinus tachycardia in the low 100 without murmurs, gallops, or rubs. No pulse deficit to the extremities on simultaneous auscultation and palpation of her radial artery. Lungs: Decreased breath sounds in bilateral bases worse on the left compared to the right with crackles audible on the left lower lung field. No rhonchi, soft expiratory wheezes audible anteriorly. Abdomen: Soft, without tenderness to palpation in all 4 quadrants of the abdomen. No guarding, rebound, or rigidity. Normal bowel sounds are audible. No tenderness on palpation of McBurney's point. Extremities: No clubbing, cyanosis, or edema. 2+ pulses in all 4 extremities. No calf tenderness on palpation. Back: No spinous process tenderness to palpation. No costovertebral angle tenderness to palpation. Neurologic Exam: Skin Exam: No rash noted. Intact skin that is warm and dry. Data Data Last Documented VS Vital Signs Date Time Temp Pulse Resp B/P (MAP) Pulse Ox O2 Delivery O2 Flow Rate FiO2 04/17/17 06:47 106 22 116/57 (76) 96 BiPAP 40 04/17/17 06:20 4.00 04/17/17 05:04 98.5 Orders Orders Complete Blood Count With Diff (04/17/17 04:56) Comprehensive Metabolic Panel (04/17/17 04:56) B-Type Natriuretic Peptide (04/17/17 04:56) D-Dimer (04/17/17 04:56) Act Partial Throm Time (Ptt) (04/17/17 04:56) Prothrombin Time / Inr (Pt) (04/17/17 04:56) Magnesium (Mg) (04/17/17 04:56) Ckmb (Isoenzyme) Profile (04/17/17 04:56) Troponin I (04/17/17 04:56) Influenzae A/B Antigen (04/17/17 04:56) Blood Culture (04/17/17 04:56) Iv Access Insert/Monitor (04/17/17 04:56) Electrocardiogram (04/17/17 04:56) Ecg Monitoring (04/17/17 04:56) Oximetry (04/17/17 04:56) Oxygen Administration (04/17/17 04:56) Chest, Single Ap (04/17/17 04:56) Sodium Chloride 0.9% Flush (Ns Flush) (04/17/17 05:00) Methylprednisolone So Succ Inj (Solumedr (04/17/17 05:00) Albuterol-Ipratropium Neb (Duoneb Neb) (04/17/17 05:00) Cefepime Inj (Maxipime Inj) (04/17/17 05:00) Azithromycin Inj (Zithromax Inj) (04/17/17 05:00) Lactic Acid Sepsis Protocol (04/17/17 05:01) Ondansetron Inj (Zofran Inj) (04/17/17 05:13) Ondansetron Inj (Zofran Inj) (04/17/17 05:30) Type And Screen (04/17/17 05:25) CKMB (04/17/17 04:59) CKMB% (04/17/17 04:59) Sodium Chlor 0.9% 1000 Ml Inj (Ns 1000 M (04/17/17 05:48) Sodium Chlor 0.9% 1000 Ml Inj (Ns 1000 M (04/17/17 05:48) Sodium Chlor 0.9% 1000 Ml Inj (Ns 1000 M (04/17/17 05:48) Sodium Chlor 0.9% 1000 Ml Inj (Ns 1000 M (04/17/17 05:48) Arterial Blood Gas (Abg) (04/17/17 05:49) Resp Bipap / Cpap Non Invas Vt (04/17/17 ) Admit Order (Ed Use Only) (04/17/17 07:29) Consult Ophthalmic Surgical Assistant (04/17/17 ) Labs Laboratory Tests Test 04/17/17 04:59 04/17/17 05:59 White Blood Count 9.2 TH/MM3 Red Blood Count 3.40 MIL/MM3 Hemoglobin 9.3 GM/DL Hematocrit 29.1 % Mean Corpuscular Volume 85.5 FL Mean Corpuscular Hemoglobin 27.5 PG Mean Corpuscular Hemoglobin Concent 32.1 % Red Cell Distribution Width 15.2 % Platelet Count 320 TH/MM3 Mean Platelet Volume 7.3 FL Neutrophils (%) (Auto) 78.5 % Lymphocytes (%) (Auto) 14.0 % Monocytes (%) (Auto) 7.1 % Eosinophils (%) (Auto) 0.2 % Basophils (%) (Auto) 0.2 % Neutrophils # (Auto) 7.2 TH/MM3 Lymphocytes # (Auto) 1.3 TH/MM3 Monocytes # (Auto) 0.7 TH/MM3 Eosinophils # (Auto) 0.0 TH/MM3 Basophils # (Auto) 0.0 TH/MM3 CBC Comment DIFF FINAL Differential Comment Prothrombin Time 10.8 SEC Prothromb Time International Ratio 1.1 RATIO Activated Partial Thromboplast Time 31.5 SEC D-Dimer Quantitative (PE/DVT) 1.36 MG/L FEU Blood Urea Nitrogen 21 MG/DL Creatinine 1.64 MG/DL Random Glucose 256 MG/DL Total Protein 7.7 GM/DL Albumin 2.8 GM/DL Calcium Level 8.3 MG/DL Magnesium Level 1.4 MG/DL Alkaline Phosphatase 140 U/L Aspartate Amino Transf (AST/SGOT) 29 U/L Alanine Aminotransferase (ALT/SGPT) 42 U/L Total Bilirubin 0.4 MG/DL Sodium Level 137 MEQ/L Potassium Level 4.0 MEQ/L Chloride Level 100 MEQ/L Carbon Dioxide Level 25.0 MEQ/L Anion Gap 12 MEQ/L Estimat Glomerular Filtration Rate 40 ML/MIN Lactic Acid Level 4.3 mmol/L Total Creatine Kinase 248 U/L Creatine Kinase MB 0.9 NG/ML Creatine Kinase MB % 0.4 % Troponin I LESS THAN 0.02 NG/ML B-Type Natriuretic Peptide 350 PG/ML Blood Gas Puncture Site RT RADIAL Blood Gas Patient Temperature 98.6 Blood Gas HCO3 21 mmol/L Blood Gas Base Excess -2.3 mmol/L Blood Gas Oxygen Saturation 76 % Arterial Blood pH 7.45 Arterial Blood Partial Pressure CO2 30 mmHg Arterial Blood Partial Pressure O2 43 mmHG Arterial Blood Oxygen Content 8.7 Vol % Arterial Blood Carboxyhemoglobin 1.5 % Arterial Blood Methemoglobin 0.9 % Blood Gas Hemoglobin 8.1 G/DL Oxygen Delivery Device NASAL CANNULA Blood Gas Liter Flow 4 L/M MDM Medical Decision Making Medical Screen Exam Complete: Yes Emergency Medical Condition: Yes Medical Record Reviewed: Yes Interpretation(s) Last Impressions Chest X-Ray 04/17/17 0456 Signed Impressions: Service Date/Time: Monday, April 17, 2017 05:17 - CONCLUSION: Cardiomegaly. There is increased density at the lateral left mid chest mainly related to the overlying scapula. Some degree of consolidation or atelectasis cannot be excluded. Edwin Duncan MD Differential Diagnosis Pneumonia, versus COPD exacerbation, versus worsening pulmonary fibrosis, versus acute coronary syndrome, versus congestive heart failure, versus pulmonary embolus Narrative Course During the course of the patient's emergency department visit, the patient's history, examination, and differential diagnosis were reviewed with the patient. The patient was placed on a clinical research monitor with oximetry and frequent blood pressure monitoring. The patient had IV access obtained and blood work sent for analysis. The patient had an ECG done on arrival that shows a sinus tachycardia with a rate of 111, short IN interval. No acute ST segment elevation or depression. The patient was initially provided Cefepime 2 g IV, Zithromax 500 IV after blood cultures 2 were drawn in a lactic acid with sent. The patient with given Solu-Medrol 125 mg IV, Zofran 4 mg IV, DuoNeb 3. When the patient's lactic acid came back elevated at 4.3 the concern for sepsis with even greater, 30 mL/kg IV fluid bolus with started. The patient's laboratory studies were reviewed and remarkable for a BNP that came back elevated in the 300s. The patient with reassessed after the first liter of normal saline IV fluids. The patient had no crackles noted at that time, however further IV fluid resuscitation has held due to a concern for fluid overload with her elevated BNP. The patient instead will be judiciously hydrated. A white count of 9.2, hemoglobin 9.3, platelets 320 with 78.5 neutrophils, CMP as remarkable for a BUN of 21, creatinine 1.64, glucose 256, calcium 8.3, magnesium 1.4, alk phos 140, CPK 248, MB percent 0.4, troponin I less than 0.02, BNP 350, albumin 2.8, PT 10.8, PTT 31.5, d-dimer 1.36. Initially a CTA to rule out PE was not ordered, however after further discussion with the call center supervisor in the admitting service, the CTA with canceled as the likely explanation for the patient's hypoxemia his pneumonia his pneumonia in combination with a COPD exacerbation along with her history of pulmonary fibrosis and now sepsis. ABG with remarkable for a pH of 7.45, PCO2 of 30, PO2 43, bicarb 21. The patient with placed on BiPAP at 12/5, 40%. The patient with reexamined after placement on BiPAP he had reported feeling improved. The patient's O2 saturation at that time with 98%. Radiology studies were reviewed and remarkable for a chest x-ray that showed cardiomegaly, infiltrate in the left lung field overlying the scapula suspicious for pneumonia. The patient's results were discussed with the patient, including the plan of care. I explained that further testing and/ or monitoring is indicated based on the patient's history, examination, and/ or laboratory findings. Therefore, I recommended admission for additional evaluation. The patient expressed understanding and was agreeable with this plan. The patient was admitted to the hospital in critical condition and sent to a bed under the care of the [facility] with a consultation to the call center supervisor service. Critical Care Narrative Aggregate critical care time was 35 minutes. Time to perform other separately billable procedures was not included in the critical care time. My time did not include minutes spent treating any other patients simultaneously or on activities that did not directly contribute to the patient's treatment. The services I provided to this patient were to treat and/or prevent clinically significant deterioration that could result in: Fluid overload related to over resuscitation with crystalloid in a patient with congestive heart failure, versus respiratory failure, versus cardiovascular collapse from sepsis I provided critical care services requiring my management, as noted below: Chart data review, documentation time, medication orders and management, vital sign assessments/reviewing monitor data, ordering and reviewing lab tests, ordering and interpreting/reviewing x-rays and diagnostic studies, care of the patient and discussion of the patient with the admitting physicians. Physician Communication Physician Communication The patient's case including history, pertinent physical examination findings, and laboratory studies were discussed with Dr. Engle the [facility] resident and , the call center supervisor. It was agreed that the patient would be admitted to the [facility] service. Diagnosis Primary Impression: Pneumonia Qualified Codes: J18.9 - Pneumonia, unspecified organism Additional Impressions: Sepsis Qualified Codes: A41.9 - Sepsis, unspecified organism Hypoxemia Admitting Information Admitting Physician Requests: Admit Marjorie Esposito MD Apr 17, 2017 06:50
[2017-04-17] MEDS ORDERED: NALOXONE HCL 0.4 MG/ML AMP IV PUSH PRN (08:00)
[2017-04-17] MEDS ORDERED: RESP: ALBUTEROL 2.5 MG/3 ML NEB (PRN) INH (08:00)
[2017-04-17] MEDS ORDERED: SODIUM CHLORIDE 0.9% FLUSH 10 ML FLUSH IV FLUSH PRN (08:00)
[2017-04-17] MEDS ORDERED: BISACODYL 10 MG SUPP RECTAL PRN (08:00)
[2017-04-17] MEDS ORDERED: ONDANSETRON HCL 4 MG/2 ML VIAL IVP PRN (08:00)
[2017-04-17] MEDS ORDERED: MISCELLANEOUS NURSING INFORMATION XX SCH (08:00)
[2017-04-17] MEDS ORDERED: LACTULOSE SYRUP 20 GM/30 ML CUP PO PRN (08:00)
[2017-04-17] MEDS ORDERED: SENNOSIDES 8.6 MG TAB PO PRN (08:00)
[2017-04-17] MEDS ORDERED: CHLORHEXIDINE GLUCONATE 2 % 1 PACK (2 CLOTHS) TOP PRN (08:00)
[2017-04-17] MEDS ORDERED: MAGNESIUM HYDROXIDE SUSP 30 ML CUP PO PRN (08:00)
[2017-04-17] MEDS: LOSARTAN 25 MG TAB PO SCH (09:00)
[2017-04-17] MEDS ORDERED: [UNRECOGNIZED DRUG - OTHER] PO SCH (09:00)
[2017-04-17] MEDS ORDERED: BUMETANIDE 1 MG TAB PO SCH (09:00)
[2017-04-17] MEDS: BUDESONIDE-FORMOTEROL 160/4.5 MCG INHALER INH SCH ×2 (09:00→20:24)
[2017-04-17] MEDS: POTASSIUM CHLORIDE 10 MEQ CONTROLLED RELEASE TAB PO SCH (09:00)
[2017-04-17] MEDS: MYCOPHENOLATE MOFETIL 500 MG TAB PO SCH ×3 (09:00→17:51)
[2017-04-17] MEDS ORDERED: PIRFENIDONE 267 MG PO SCH (09:00)
[2017-04-17] MEDS ORDERED: PANTOPRAZOLE SODIUM 40 MG VIAL IV PUSH SCH (09:00)
[2017-04-17] MEDS: DOCUSATE SODIUM 50 MG/SENNA 8.6 MG TAB PO SCH ×2 (09:00→20:24)
[2017-04-17] MEDS: PANTOPRAZOLE SOD 40 MG DELAYED RELEASE TAB PO SCH (09:00)
--- NOTE | 2017-04-17 09:28 | HHI.HP ---
HPI Service Family Medicine Primary Care Physician Unknown Admission Diagnosis Pneumonia, pulmonary fibrosis, hypoxemia Diagnoses: International Travel<30 Days: No Contact w/Intl Traveler<30days: No Known Affected Area: No History of Present Illness Mrs. See is a very pleasant 51 y/o black female who has an extensive PMHx of T2DM on insulin therapy, idiopathic interstitial lung disease requiring home oxygen, COPD, hypertension, Stage 3 CKD, iron deficiency anemia, and peripheral neuropathy, presenting with increasing SOB x 4-5 days. History limited 2/2 BiPAP machine and mask covering her face. Her symptoms started one week ago with thick, green/yellow discharge from her nose. She was seen by her ropeman who told her to make an appointment with her power generation equipment repairer. She was able to see Dr. Mcdaniel on 04/12/17, and she was prescribed an antibiotic. She does not recall the name. Due to transportation difficulties she was not able to fill this antibiotic until 04/15/2017. AT that time she developed tightness in her chest and a productive cough of yellow/ green sputum. She denies hemoptysis. Her breathing gradually became worse and last night she called 911. Her oxygen was not working per EMT. She does report subjective fevers, chills, malaise, headaches, and fatigue. She report chest tightness, but no pain currently. She also has been having some epigastric abdominal pain and she thinks "this is because I have not eaten anything." FOr her DM, she is taking Levemir 30 units BID and a sliding scale Novolog. She has not required many units of novolog over the past 1 week and reports that her BG is ranging from 100-200. ROS: Denies dysuria or urinary frequency. Denies nausea or vomiting. Denies stiff neck. Denies blurry vision. (Dao Engle MD, R3) Review of Systems ROS Limitations: Clinical Condition Constitutional: COMPLAINS OF: Diaphoretic episodes, Fatigue, Fever, Chills, Dizziness Eyes: DENIES: Blurred vision, Eye pain, Vision loss Musculoskeletal: COMPLAINS OF: Muscle aches, Stiffness Neurologic: COMPLAINS OF: Headache Psychiatric: DENIES: Confusion (Dao Engle MD, R3) Past Family Social History Past Medical History Idiopathic interstitial lung disease confirmed by lung biopsy in 2017 Questionable systemic lupus erythematous T2DM on insulin hypertension diabetic neuropathy COPD Past Surgical History Bronchosopy 2017 Wedge biopsy of left lung via thoracotomy (August 2016) Kidney Biopsy (July 2016) (Dao Engle MD, R3) Allergies: Coded Allergies: No Known Allergies (Verified Allergy, Unknown, 04/17/17) Family History Father: ESRD, DM Mother: Lupus Sister: seizures, CVA Sister: bone problems Social History Tobacco: quit 10 years, 1PPD x 20 years Alcohol: denies Illicit: denies Home oxygen at 3L baseline Uses walker, cane for ambulation PRN Lives alone, "a few steps" at home, has assistive railing (Dao Engle MD, R3) Physical Exam Vital Signs Vital Signs Date Time Temp Pulse Resp B/P (MAP) Pulse Ox O2 Delivery O2 Flow Rate FiO2 04/17/17 09:07 93 Nasal Cannula 4.00 04/17/17 06:47 106 22 116/57 (76) 96 BiPAP 40 04/17/17 06:30 100 30 04/17/17 06:29 BiPAP 40 04/17/17 06:20 106 34 104/63 (77) 85 Nasal Cannula 4.00 04/17/17 05:04 98.5 88 22 109/62 (78) 100 Nasal Cannula 3.00 04/17/17 05:04 22 04/17/17 05:04 98 Nasal Cannula 3.00 04/17/17 04:57 98.5 83 22 113/63 (80) 98 Physical Exam GENERAL: Alert an oriented to place, city, date, year, but not president. Appears drowsy, but not lethargic. SKIN: No rashes, ecchymoses or lesions. Cool and dry. HEAD: Atraumatic. Normocephalic. No temporal or scalp tenderness. EYES: Pupils equal round and reactive. Extraocular motions intact. No scleral icterus. No injection or drainage. ENT: Nose without bleeding, purulent drainage or septal hematoma. NECK: Trachea midline. No JVD or lymphadenopathy. Supple, nontender, no meningeal signs. CARDIOVASCULAR: Regular rate and rhythm without murmurs, gallops, or rubs. RESPIRATORY: Coarse crackles throughout lungs on inspiration. Expiratory wheezing throughout. ++Accessory muscle use while on BiPAP. GASTROINTESTINAL: Abdomen soft, non-tender, nondistended. No hepato-splenomegaly , or palpable masses. No guarding. MUSCULOSKELETAL: Extremities without clubbing, cyanosis, or edema. No joint tenderness, effusion, or edema noted. No calf tenderness. Negative Homans sign bilaterally. NEUROLOGICAL: Awake and alert. Cranial nerves II through XII intact. Motor and sensory grossly within normal limits. Five out of 5 muscle strength in all muscle groups. Normal speech. Laboratory Laboratory Tests Test 04/17/17 04:59 04/17/17 05:59 04/17/17 07:56 White Blood Count 9.2 Red Blood Count 3.40 Hemoglobin 9.3 Hematocrit 29.1 Mean Corpuscular Volume 85.5 Mean Corpuscular Hemoglobin 27.5 Mean Corpuscular Hemoglobin Concent 32.1 Red Cell Distribution Width 15.2 Platelet Count 320 Mean Platelet Volume 7.3 Neutrophils (%) (Auto) 78.5 Lymphocytes (%) (Auto) 14.0 Monocytes (%) (Auto) 7.1 Eosinophils (%) (Auto) 0.2 Basophils (%) (Auto) 0.2 Neutrophils # (Auto) 7.2 Lymphocytes # (Auto) 1.3 Monocytes # (Auto) 0.7 Eosinophils # (Auto) 0.0 Basophils # (Auto) 0.0 CBC Comment DIFF FINAL Differential Comment Prothrombin Time 10.8 Prothromb Time International Ratio 1.1 Activated Partial Thromboplast Time 31.5 D-Dimer Quantitative (PE/DVT) 1.36 Blood Urea Nitrogen 21 Creatinine 1.64 Random Glucose 256 Total Protein 7.7 Albumin 2.8 Calcium Level 8.3 Magnesium Level 1.4 Alkaline Phosphatase 140 Aspartate Amino Transf (AST/SGOT) 29 Alanine Aminotransferase (ALT/SGPT) 42 Total Bilirubin 0.4 Sodium Level 137 Potassium Level 4.0 Chloride Level 100 Carbon Dioxide Level 25.0 Anion Gap 12 Estimat Glomerular Filtration Rate 40 Lactic Acid Level 4.3 2.0 Total Creatine Kinase 248 Creatine Kinase MB 0.9 Creatine Kinase MB % 0.4 Troponin I LESS THAN 0.02 B-Type Natriuretic Peptide 350 Blood Gas Puncture Site RT RADIAL Blood Gas Patient Temperature 98.6 Blood Gas HCO3 21 Blood Gas Base Excess -2.3 Blood Gas Oxygen Saturation 76 Arterial Blood pH 7.45 Arterial Blood Partial Pressure CO2 30 Arterial Blood Partial Pressure O2 43 Arterial Blood Oxygen Content 8.7 Arterial Blood Carboxyhemoglobin 1.5 Arterial Blood Methemoglobin 0.9 Blood Gas Hemoglobin 8.1 Oxygen Delivery Device NASAL CANNULA Blood Gas Liter Flow 4 Date/Time Source Procedure Growth Status 04/17/17 04:59 Blood Peripheral Aerobic Blood Culture Pending Received 04/17/17 04:59 Blood Peripheral Anaerobic Blood Culture Pending Received 04/17/17 04:59 Nasal Aspirate Influenza Types A,B Antigen (MARY ELLEN) - Final NEGATIVE FOR FLU A AND B ANTIGEN.... Complete (Dao Engle MD, R3) Result Diagram: 04/17/179 04/17/179 Imaging Last 72 hours Impressions Chest X-Ray 04/17/176 Signed Impressions: Service Date/Time: Monday, April 17, 2017 05:17 - CONCLUSION: Cardiomegaly. There is increased density at the lateral left mid chest mainly related to the overlying scapula. Some degree of consolidation or atelectasis cannot be excluded. Edwin Duncan MD (Dao Engle MD, R3) Caprini VTE Risk Assessment Caprini VTE Risk Assessment: Mod/High Risk (score >= 2) Caprini Risk Assessment Model Point Value = 1 Point Value = 2 Point Value = 3 Point Value = 5 Age 41-60 Minor surgery BMI > 25 kg/m2 Swollen legs Varicose veins or History of unexplained or recurrent spontaneous Oral contraceptives or hormone replacement Sepsis (< 1 month) Serious lung disease, including pneumonia (< 1 month) Abnormal pulmonary function Acute myocardial infarction Congestive heart failure (< 1 month) History of inflammatory bowel disease Medical patient at bed rest Age 61-74 Arthroscopic surgery Major open surgery (> 45 min) Laparoscopic surgery (> 45 min) Malignancy Confined to bed (> 72 hours) Immobilizing plaster cast Central venous access Age >= 75 History of VTE Family history of VTE Factor V Leiden Prothrombin [id number] Lupus anticoagulant Anticardiolipin antibodies Elevated serum homocysteine Heparin-induced thrombocytopenia Other congenital or acquired thrombophilia Stroke (< 1 month) Elective arthroplasty Hip, pelvis, or leg fracture Acute spinal cord injury (< 1 month) Prophylaxis Regimen Total Risk Factor Score Risk Level Prophylaxis Regimen 0-1 Low Early ambulation 2 Moderate Order ONE of the following: *Sequential Compression Device (SCD) *Heparin 5000 units SQ BID 3-4 Higher Order ONE of the following medications: *Heparin 5000 units SQ TID *Enoxaparin/Lovenox 40 mg SQ daily (WT < 150 kg, CrCl > 30 mL/min) *Enoxaparin/Lovenox 30 mg SQ daily (WT < 150 kg, CrCl > 10-29 mL/min) *Enoxaparin/Lovenox 30 mg SQ BID (WT < 150 kg, CrCl > 30 mL/min) AND/OR *Sequential Compression Device (SCD) 5 or more Highest Order ONE of the following medications: *Heparin 5000 units SQ TID (Preferred with Epidurals) *Enoxaparin/Lovenox 40 mg SQ daily (WT < 150 kg, CrCl > 30 mL/min) *Enoxaparin/Lovenox 30 mg SQ daily (WT < 150 kg, CrCl > 10-29 mL/min) *Enoxaparin/Lovenox 30 mg SQ BID (WT < 150 kg, CrCl > 30 mL/min) AND *Sequential Compression Device (SCD) (Dao Engle MD, R3) Assessment and Plan Assessment and Plan Mrs. See is a very pleasant 51 y/o black female with a PMHX of interstitial lung disease confirmed by lung biopsy in August 2016, SLE, and T2DM, who is presenting with worsening respiratory distress. She required BiPAP on admission and will be admitted to the medical intensive care unit. Code Status Full Code. (Dao Engle MD, R3) Attending Attestation Patient seen and examined. Case reviewed and discussed with the resident team. Agree with plan of care as discussed with me and documented in the resident note. saw her in [facility]. She is making a remarkable improvement. She has lupus and is extremely steroid responsive. she is off bipap, on 4 liter nasal canula and has a good O2 sat. She has pulmonary fibrosis likely from her lupus as it began when she had serious renal failure and severe inflammation in the fall of 2014. She has been doing very well on cellcept which she started in December and has not required hospitalization from then until now. will hold her bumex as her fibrosis is basilar. her kidneys are a little worse than her baseline. (Noeren Rodríguez MD) Problem List: (1) Respiratory distress ICD Codes: R06.00 - Dyspnea, unspecified Status: Acute Plan: Satting at 84% on 4 L, and requiring BiPAP. CXR showed: 0600 on 04/17/17: Cardiomegaly. There is increased density at the lateral left mid chest mainly related to the overlying scapula. Some degree of consolidation or atelectasis cannot be excluded. Edwin Duncan MD AGB on admission showed pH of 7.45, pCO2 o30, PO2 43 LOW, HCO3 21. Echocardiogram in June 2016 showed EF 55-60%. Peak Pulmonary pressure of 70 mm Hg, suggestive of severe lung disease. Impression Likely Community acquired pneumonia, vs. COPD exacerbation vs. Bronchitis, vs. worsening CHF. [employer] was consulted and we appreciate their assistance in management. Broad spectrum ABX given immunosuppressive therapy with Cellcept: -Cefepime 2 g q 8 hours -Azithromycin 1 g q 24 hours Gentle IVF: 75 ml/hr NS Duoneb treatments q 4 hours scheduled. Albuterol nebulizer q 2 hours as needed for SOB. IV Solumedrol 60 mg IV q 6 hours. Blood cultures x 2. BiPAP titrated per respiratory. Currently at 30 FiO2. Repeat ABG after 2 hours on BiPAP. (2) CHF (congestive heart failure) ICD Codes: I50.9 - Heart failure, unspecified Status: Acute Plan: BNP elevated on admission to 350. Troponin < 0.02. No lower extremity edema. Compensated at this point. ? Cor pulmonale phenomenon. Careful with IVF as above. Repeat CXR in AM. Continue Bumex 1 mg PO BID. May need IV diuresis if not tolerating PO medications. (3) Lactic acidosis ICD Codes: E87.2 - Acidosis Status: Acute Plan: LA 4.0 on admission --> reduced to 2.0 after improvement of respiratory status. Likely 2/2 increased work of breathing vs. underlying sepsis 2/2 pneumonia. (4) Essential hypertension ICD Codes: I10 - Essential (primary) hypertension Status: Chronic Plan: Continue with Losartan 25 mg daily. Monitor VS q 4 hours. Adjust antihypertensive regimen as needed. (5) DM (diabetes mellitus) ICD Codes: E11.9 - Type 2 diabetes mellitus without complications Status: Chronic Plan: On levemir 30 units BID at home. Well controlled with this regimen. Will using medium dose sliding scale Novlog. May add 20 units of Levemir BID if still remaining high. BG on admission was 256. May increase 2/2 high dose of IV glucocorticoids. (6) CKD (chronic kidney disease) stage 3, GFR 30-59 ml/min ICD Codes: N18.3 - Chronic kidney disease, stage 3 (moderate) Status: Acute Plan: At baseline. IVF as above. Avoid nephrotoxic medications. Strict I&Os. Daily CMP. Avoid contrast dye. (7) Anemia ICD Codes: D64.9 - Anemia, unspecified Status: Chronic Plan: Hold iron therapy given epigastric pain and possible gastritis. (8) FEN/PPX Status: Acute Plan: Fluids: Above. GI ppx: Pantoprazole 40 mg PO if tolerated. May require IV. DVT: Lovenox 30 mg daily. Diet: NPO while on BiPAP WDW Dr. Rodríguez and Dr. Laurie Snell. (Dao Engle MD, R3) Physician Certification 2 Midnight Certification Type: Admission for Inpatient Services Order for Inpatient Services The services are ordered in accordance with Medicare regulations or non- Medicare payer requirements, as applicable. In the case of services not specified as inpatient-only, they are appropriately provided as inpatient services in accordance with the 2-midnight benchmark. Estimated LOS (days): 2 2 days is the estimated time the patient will need to remain in the hospital, assuming treatment plan goals are met and no additional complications. Post-Hospital Plan: Home (Dao Engle MD, R3) Dao Engle MD, R3 Apr 17, 2017 09:28 Noreen Rodríguez MD Apr 17, 2017 13:00
--- NOTE | 2017-04-17 09:36 | EKG ---
Date Performed: 04/17/2017 Time Performed: 04:55:21 PTAGE: 51 years EKG: SINUS TACHYCARDIA WITH SHORT [place] INTERVAL ABNORMAL RHYTHM ECG WARNING: DATA QUALITY MAY AFFE CT INTERPRETATION PREVIOUS TRACING : 12/30/2016 20.15 DOCTOR: Erick Wallis Interpretating Date/Time 04/17/2017 09:35:21
[2017-04-17] MEDS ORDERED: GLUCAGON 1 MG/ML VIAL OTHER PRN (11:45)
[2017-04-17] MEDS ORDERED: ENALAPRILAT 1.25 MG/ML VIAL IV PUSH PRN (11:45)
[2017-04-17] MEDS ORDERED: DEXTROSE 50% IN WATER 50 ML VIAL(D50) IV PUSH PRN (11:45)
[2017-04-17] MEDS: SODIUM CHLORIDE 0.9% FLUSH 10 ML FLUSH IV FLUSH SCH ×2 (12:14→20:26)
[2017-04-17] MEDS: GABAPENTIN 400 MG CAP PO SCH ×2 (12:15→20:24)
[2017-04-17] MEDS: ASPIRIN 81 MG CHEW TAB CHEW SCH (12:15)
[2017-04-17] MEDS: ENOXAPARIN SODIUM 30 MG/0.3 ML SYRINGE SQ SCH (12:17)
[2017-04-17] MEDS: methylPREDNISolone SOD SUCC 125 MG/2 ML VIAL IV PUSH SCH ×3 (12:17→22:48)
[2017-04-17] MEDS: CALCITRIOL 0.25 MCG CAP PO SCH (12:19)
[2017-04-17] MEDS: SODIUM CHLOR 0.45% 1000 ML INJ 1,000 ML IV SCH (12:22)
[2017-04-17] MEDS: LOW DOSE INSULIN NOVOLOG SUPPLEMENTAL SCALE SQ SCH ×3 (13:50→20:25)
[2017-04-17] MEDS: oxyCODONE/ACETAMINOPHEN 5 MG/325 MG TAB PO PRN ×2 (13:53→20:24)
[2017-04-17] MEDS: CEFEPIME INJ 2,000 MG in SODIUM CHLORIDE 0.9% INJ 100 ML IV SCH (13:54)
--- NOTE | 2017-04-17 15:57 | PD.CONS ---
[facility] Service Critical Care Medicine Consult Requested By Dr. Marjorie Esposito Reason for Consult Acute resp failure Primary Care Physician Unknown History of Present Illness 51-year-old female with a medical history significant for idiopathic interstitial lung disease on home oxygen, COPD, type 2 diabetes mellitus, stage III CK D who developed shortness of breath with productive cough about one week prior to presentation. She was seen by a correctional officer sergeant and referred to Dr. Souza for pulmonary physician who saw her on April 12, 2017 and she was prescribed an antibiotic however she did not start the antibiotic prescription pill 04/15. She developed worsening cough with shortness of breath and was eventually brought to the ER by EMS this morning. Patient was extremely short of breath and hypoxic and was placed on BiPAP following arrival in the ER. She received empiric antibiotics after cultures were obtained. Patient was admitted by family medicine service and critical care consult was requested for respiratory failure requiring BiPAP. When I evaluated the patient she was in the ER setting of on BiPAP with full facemask. She felt that her breathing was better since initiation of BiPAP. History was obtained by discussion with ER physician as well as patient. ROS - General Review of Systems As per history of present illness. ROS Limitations: Clinical Condition Constitutional: COMPLAINS OF: Diaphoretic episodes, Fatigue, Fever, Chills, Dizziness Eyes: DENIES: Blurred vision, Eye pain, Vision loss Musculoskeletal: COMPLAINS OF: Muscle aches, Stiffness Neurologic: COMPLAINS OF: Headache Psychiatric: DENIES: Confusion PFSH Past Family Social History Past Medical History Idiopathic interstitial lung disease confirmed by lung biopsy in 2017 Questionable systemic lupus erythematous T2DM on insulin hypertension diabetic neuropathy COPD Past Surgical History Bronchosopy 2017 Wedge biopsy of left lung via thoracotomy (August 2016) Kidney Biopsy (July 2016) Allergies: Coded Allergies: No Known Allergies (Verified Allergy, Unknown, 04/17/17) Family History Father: ESRD, DM Mother: Lupus Sister: seizures, CVA Sister: bone problems Social History Tobacco: quit 10 years, 1PPD x 20 years Alcohol: denies Illicit: denies Home oxygen at 3L baseline Uses walker, cane for ambulation PRN Lives alone, "a few steps" at home, has assistive railing Physical Exam Vital Signs Vital Signs Date Time Temp Pulse Resp B/P (MAP) Pulse Ox O2 Delivery O2 Flow Rate FiO2 04/17/17 14:51 18 04/17/17 14:00 93 04/17/17 12:00 98.8 101 20 101/90 (94) 90 04/17/17 12:00 101 04/17/17 10:29 93 Nasal Cannula 4.00 04/17/17 10:00 97 04/17/17 09:30 96 04/17/17 09:22 04/17/17 09:07 93 Nasal Cannula 4.00 04/17/17 06:47 106 22 116/57 (76) 96 BiPAP 40 04/17/17 06:30 100 30 04/17/17 06:29 BiPAP 40 04/17/17 06:20 106 34 104/63 (77) 85 Nasal Cannula 4.00 04/17/17 05:04 98.5 88 22 109/62 (78) 100 Nasal Cannula 3.00 04/17/17 05:04 22 04/17/17 05:04 98 Nasal Cannula 3.00 04/17/17 04:57 98.5 83 22 113/63 (80) 98 Physical Exam HEENT/Neuro: No icterus, pallor present, tongue moist, ANDERSON, Awake alert oriented 3, nonfocal grossly, moving all 4 extremities Neck: No JVD Chest/pulmonary: On BiPAP with full facemask, good air entry bilaterally, scattered rhonchi and crackles bilaterally, no wheezing Cardiovascular: S1-S2 regular no gallop or murmur GI/abdomen: Soft, nontender, bowel sounds present Extremities: Warm bilaterally, no edema Laboratory Laboratory Tests Test 04/17/17 04:59 04/17/17 05:59 04/17/17 07:56 White Blood Count 9.2 Red Blood Count 3.40 Hemoglobin 9.3 Hematocrit 29.1 Mean Corpuscular Volume 85.5 Mean Corpuscular Hemoglobin 27.5 Mean Corpuscular Hemoglobin Concent 32.1 Red Cell Distribution Width 15.2 Platelet Count 320 Mean Platelet Volume 7.3 Neutrophils (%) (Auto) 78.5 Lymphocytes (%) (Auto) 14.0 Monocytes (%) (Auto) 7.1 Eosinophils (%) (Auto) 0.2 Basophils (%) (Auto) 0.2 Neutrophils # (Auto) 7.2 Lymphocytes # (Auto) 1.3 Monocytes # (Auto) 0.7 Eosinophils # (Auto) 0.0 Basophils # (Auto) 0.0 CBC Comment DIFF FINAL Differential Comment Prothrombin Time 10.8 Prothromb Time International Ratio 1.1 Activated Partial Thromboplast Time 31.5 D-Dimer Quantitative (PE/DVT) 1.36 Blood Urea Nitrogen 21 Creatinine 1.64 Random Glucose 256 Total Protein 7.7 Albumin 2.8 Calcium Level 8.3 Magnesium Level 1.4 Alkaline Phosphatase 140 Aspartate Amino Transf (AST/SGOT) 29 Alanine Aminotransferase (ALT/SGPT) 42 Total Bilirubin 0.4 Sodium Level 137 Potassium Level 4.0 Chloride Level 100 Carbon Dioxide Level 25.0 Anion Gap 12 Estimat Glomerular Filtration Rate 40 Lactic Acid Level 4.3 2.0 Total Creatine Kinase 248 Creatine Kinase MB 0.9 Creatine Kinase MB % 0.4 Troponin I LESS THAN 0.02 B-Type Natriuretic Peptide 350 Blood Gas Puncture Site RT RADIAL Blood Gas Patient Temperature 98.6 Blood Gas HCO3 21 Blood Gas Base Excess -2.3 Blood Gas Oxygen Saturation 76 Arterial Blood pH 7.45 Arterial Blood Partial Pressure CO2 30 Arterial Blood Partial Pressure O2 43 Arterial Blood Oxygen Content 8.7 Arterial Blood Carboxyhemoglobin 1.5 Arterial Blood Methemoglobin 0.9 Blood Gas Hemoglobin 8.1 Oxygen Delivery Device NASAL CANNULA Blood Gas Liter Flow 4 Date/Time Source Procedure Growth Status 04/17/17 04:59 Blood Peripheral Aerobic Blood Culture Pending Received 04/17/17 04:59 Blood Peripheral Anaerobic Blood Culture Pending Received 04/17/17 04:59 Nasal Aspirate Influenza Types A,B Antigen (MARY ELLEN) - Final NEGATIVE FOR FLU A AND B ANTIGEN.... Complete Result Diagram: 04/17/17 0459 04/17/17 0459 Imaging Last Impressions Chest X-Ray 04/17/176 Signed Impressions: Service Date/Time: Monday, April 17, 2017 05:17 - CONCLUSION: Cardiomegaly. There is increased density at the lateral left mid chest mainly related to the overlying scapula. Some degree of consolidation or atelectasis cannot be excluded. Edwin Duncan MD Septic Shock Reassessment Septic shock perfusion: reassessment completed Assessment and Plan Assessment and Plan 51-year-old female with: Acute respiratory failure requiring BiPAP Interstitial lung disease Left lower lobe pneumonia COPD CHF Hypertension Type 2 diabetes mellitus Anemia Plan: Neuro: Follow neuro status, avoid sedatives and narcotics. Cardiovascular: Continue Bumex by mouth, antihypertensives. Watch for hypotension. Pulmonary: Continue BiPAP. If respiratory status declines despite BiPAP may require endotracheal intubation. Bronchodilators, IV steroids. GI/liver: Nothing by mouth till improvement in her respiratory status. Renal/: IV hydration, strict intake output, monitor and replete elect lites, follow BUN creatinine. ID: Follow-up cultures. Empiric antibiotics including cefepime/Zithromax. Immunosuppressed patient on CellCept for ILD. Heme: Follow CBC. Continue iron supplements. Endocrine: SSI for glycemic control. Resume Levemir when tolerating by mouth diet Prophylaxis: SCDs, Lovenox, Protonix Condition critical Time spent on critical care excluding procedures 60 minutes Marlon Oneill MD Apr 17, 2017 15:57
[2017-04-17] MEDS: MONTELUKAST SODIUM 10 MG TAB PO SCH (20:24)
[2017-04-17] MEDS: LACTOBACILLUS ACIDOPHILUS TAB PO SCH (20:25)
[2017-04-17] MEDS: INSULIN DETEMIR 100 UNITS/ML VIAL SQ SCH (20:25)
[2017-04-17] MEDS: MORPHINE SULFATE 2 MG/ML INJ IV PUSH PRN (22:48)
[2017-04-18] VITALS (16 sets, daily range): BP systolic 120–156; BP diastolic 70–81; PULSE 70–94; RESP 17–34; TEMP 96.7–98.8; O2SAT 89–100
[2017-04-18] MEDS: CEFEPIME INJ 2,000 MG in SODIUM CHLORIDE 0.9% INJ 100 ML IV SCH ×2 (02:26→15:41)
[2017-04-18] MEDS: RESP: ALBUTEROL 2.5 MG/IPRATROPIUM 0.5 MG NEB (SCH) INH ×6 (03:45→23:33)
--- NOTE | 2017-04-18 04:38 | RADRPT ---
EXAM DATE/TIME: 04/18/2017 03:03 [place] COMPARISON: CHEST SINGLE AP, April 17, 2017, 5:17. INDICATIONS : Shortness of breath, possible pulmonary disease. MEDICAL HISTORY : None. SURGICAL HISTORY : None. ENCOUNTER: Subsequent ACUITY: 2 days PAIN SCORE: 0/10 LOCATION: Bilateral chest FINDINGS: The heart size is enlarged. There is diffuse increased interstitial markings. The costophrenic angles are grossly clear. CONCLUSION: Diffuse increased interstitial markings likely related to edema or underlying chronic interstitial di sease. Edwin Duncan MD on April 18, 2017 at 4:36 Board Certified Radiologist. This report was verified electronically.
[2017-04-18] MEDS: AZITHROMYCIN INJ 500 MG in SODIUM CHLOR 0.9% 250 ML INJ 250 ML IV SCH (05:07)
[2017-04-18] MEDS: methylPREDNISolone SOD SUCC 125 MG/2 ML VIAL IV PUSH SCH ×2 (05:07→23:48)
[2017-04-18 06:21] LABS: AUTOMATED NEUTROPHIL # 5.2 TH/MM3 (1.8-7.7); BASOPHIL % 0.1 % (0.0-2.0); HEMOGLOBIN 7.8 GM/DL (11.6-15.3); LYMPH % 6.4 % (9.0-44.0); LYMPHOCYTE # 0.4 TH/MM3 (1.0-4.8); MEAN CELL VOLUME 85.4 FL (80.0-100.0); MEAN CORPUSCULAR HEMOGLOBIN 27.8 PG (27.0-34.0); MEAN CORPUSCULAR HGB CONC 32.5 % (32.0-36.0); MEAN PLATELET VOLUME 8.1 FL (7.0-11.0); MONO % 3.1 % (0.0-8.0); MONOCYTE # 0.2 TH/MM3 (0-0.9); NEUT % 90.4 % (16.0-70.0); PLATELET COUNT 246 TH/MM3 (150-450); RED BLOOD COUNT 2.81 MIL/MM3 (4.00-5.30); RED CELL DISTRIBUTION WIDTH 14.9 % (11.6-17.2); WHITE BLOOD COUNT 5.8 TH/MM3 (4.0-11.0)
[2017-04-18] MEDS: SODIUM CHLOR 0.45% 1000 ML INJ 1,000 ML IV SCH (06:29)
[2017-04-18 06:44] LABS: ALBUMIN 2.5 GM/DL (3.4-5.0); ALT (GPT) 39 U/L (10-53); AST (GOT) 14 U/L (15-37); BICARBONATE 20.6 MEQ/L (21.0-32.0); BLOOD UREA NITROGEN 20 MG/DL (7-18); CALCIUM 8.5 MG/DL (8.5-10.1); CHLORIDE 102 MEQ/L (98-107); CREATININE 1.12 MG/DL (0.50-1.00); GLOMERULAR FILTRATION RATE 62 ML/MIN (>89); GLUCOSE,RANDOM 327 MG/DL (74-106); SODIUM (NA) 135 MEQ/L (136-145)
[2017-04-18 06:47] LABS: ALKALINE PHOSPHATASE 117 U/L (45-117); TOTAL BILIRUBIN ADULT 0.3 MG/DL (0.2-1.0); TOTAL PROTEIN 6.9 GM/DL (6.4-8.2)
[2017-04-18] MEDS: LOW DOSE INSULIN NOVOLOG SUPPLEMENTAL SCALE SQ SCH (08:00)
[2017-04-18] MEDS: ASPIRIN 81 MG CHEW TAB CHEW SCH (08:47)
[2017-04-18] MEDS: GABAPENTIN 400 MG CAP PO SCH ×2 (08:47→21:05)
[2017-04-18] MEDS: CALCITRIOL 0.25 MCG CAP PO SCH (08:47)
[2017-04-18] MEDS: POTASSIUM CHLORIDE 10 MEQ CONTROLLED RELEASE TAB PO SCH (08:47)
[2017-04-18] MEDS: DOCUSATE SODIUM 50 MG/SENNA 8.6 MG TAB PO SCH ×2 (08:47→21:05)
[2017-04-18] MEDS: PANTOPRAZOLE SOD 40 MG DELAYED RELEASE TAB PO SCH (08:47)
[2017-04-18] MEDS: MYCOPHENOLATE MOFETIL 500 MG TAB PO SCH ×3 (08:47→17:18)
[2017-04-18] MEDS: LOSARTAN 25 MG TAB PO SCH (08:47)
[2017-04-18] MEDS: BUDESONIDE-FORMOTEROL 160/4.5 MCG INHALER INH SCH ×2 (08:48→21:05)
[2017-04-18] MEDS: INSULIN DETEMIR 100 UNITS/ML VIAL SQ SCH ×2 (08:48→21:05)
[2017-04-18] MEDS: SODIUM CHLORIDE 0.9% FLUSH 10 ML FLUSH IV FLUSH SCH ×2 (08:48→21:00)
[2017-04-18] MEDS: LACTOBACILLUS ACIDOPHILUS TAB PO SCH ×2 (08:57→21:00)
[2017-04-18] MEDS: oxyCODONE/ACETAMINOPHEN 5 MG/325 MG TAB PO PRN (08:57)
[2017-04-18] MEDS ORDERED: INFLUENZA VIRUS VACCINE (QUADRIVALENT) 0.5 ML SYR IM ONE (10:00)
[2017-04-18] MEDS: ENOXAPARIN SODIUM 30 MG/0.3 ML SYRINGE SQ SCH (10:55)
[2017-04-18] MEDS ORDERED: methylPREDNISolone SOD SUCC 125 MG/2 ML VIAL IV PUSH SCH ×2 (11:00→17:00)
--- NOTE | 2017-04-18 11:03 | HHI.CCPN ---
Subjective Remarks/Hospital Course 51-year-old female with a medical history significant for idiopathic interstitial lung disease on home oxygen, COPD, type 2 diabetes mellitus, stage III CK D who developed shortness of breath with productive cough about one week prior to presentation. She was seen by a cigar head perforator and referred to Dr. Souza for pulmonary physician who saw her on April 12, 2017 and she was prescribed an antibiotic however she did not start the antibiotic prescription pill 04/15. She developed worsening cough with shortness of breath and was eventually brought to the ER by EMS this morning. Patient was extremely short of breath and hypoxic and was placed on BiPAP following arrival in the ER. She received empiric antibiotics after cultures were obtained. Patient was admitted by family medicine service and critical care consult was requested for respiratory failure requiring BiPAP. When I evaluated the patient she was in the ER setting of on BiPAP with full facemask. She felt that her breathing was better since initiation of BiPAP. History was obtained by discussion with ER physician as well as patient. 04/18 Patient is on 4L oxygen with good sats. Afebrile. Objective Vital Signs Date Time Temp Pulse Resp B/P (MAP) Pulse Ox O2 Delivery O2 Flow Rate FiO2 04/18/17 10:00 90 04/18/17 08:10 95 Nasal Cannula 4.00 04/18/17 08:00 96.7 34 120/77 (91) 04/18/17 04:05 40 Result Diagram: 04/18/17 0506 04/18/17 0506 Other Results Laboratory Tests Test 04/18/17 05:06 White Blood Count 5.8 TH/MM3 Red Blood Count 2.81 MIL/MM3 Hemoglobin 7.8 GM/DL Hematocrit 24.0 % Mean Corpuscular Volume 85.4 FL Mean Corpuscular Hemoglobin 27.8 PG Mean Corpuscular Hemoglobin Concent 32.5 % Red Cell Distribution Width 14.9 % Platelet Count 246 TH/MM3 Mean Platelet Volume 8.1 FL Neutrophils (%) (Auto) 90.4 % Lymphocytes (%) (Auto) 6.4 % Monocytes (%) (Auto) 3.1 % Eosinophils (%) (Auto) 0.0 % Basophils (%) (Auto) 0.1 % Neutrophils # (Auto) 5.2 TH/MM3 Lymphocytes # (Auto) 0.4 TH/MM3 Monocytes # (Auto) 0.2 TH/MM3 Eosinophils # (Auto) 0.0 TH/MM3 Basophils # (Auto) 0.0 TH/MM3 CBC Comment DIFF FINAL Differential Comment Blood Urea Nitrogen 20 MG/DL Creatinine 1.12 MG/DL Random Glucose 327 MG/DL Total Protein 6.9 GM/DL Albumin 2.5 GM/DL Calcium Level 8.5 MG/DL Alkaline Phosphatase 117 U/L Aspartate Amino Transf (AST/SGOT) 14 U/L Alanine Aminotransferase (ALT/SGPT) 39 U/L Total Bilirubin 0.3 MG/DL Sodium Level 135 MEQ/L Potassium Level 4.2 MEQ/L Chloride Level 102 MEQ/L Carbon Dioxide Level 20.6 MEQ/L Anion Gap 12 MEQ/L Estimat Glomerular Filtration Rate 62 ML/MIN Imaging Last Impressions Chest X-Ray 04/18/17 0000 Signed Impressions: Service Date/Time: , April 18, 2017 03:03 - CONCLUSION: Diffuse increased interstitial markings likely related to edema or underlying chronic interstitial disease. Edwin Duncan MD Objective Remarks GENERAL: Patient is 51 yo siting up in bed in NAD SKIN: Warm and dry. HEAD: Normocephalic. EYES: No scleral icterus. No injection or drainage. NECK: Supple, trachea midline. No JVD or lymphadenopathy. CARDIOVASCULAR: Regular rate and rhythm without murmurs, gallops, or rubs. RESPIRATORY: Breath sounds equal bilaterally. No accessory muscle use. Coarse BS GASTROINTESTINAL: Abdomen soft, non-tender, nondistended. MUSCULOSKELETAL: No cyanosis, or edema. Neuro: Awake and alert A/P Assessment and Plan 51-year-old female with: Acute respiratory failure requiring BiPAP Interstitial lung disease Left lower lobe pneumonia COPD CHF Hypertension Type 2 diabetes mellitus Anemia Plan: Neuro: Monitor neuro status, avoid sedatives and narcotics. CV: Monitor HR and BP keep MAP>65mmHg Lactic acid cleared. On ASA, Cozaar Pulmo: Continue with oxygen keep sat >92% Bronchodilators, IV steroids-decrease solumederol 40mg Q12 Check CT chest wo contrast. Pulm is consulted GI/liver:On PO diabetic diet Renal/: Monitor renal function, electrolytes replacement as needed/ d/c IVF ID: Continue empiric antibiotics including cefepime/Zithromax. Immunosuppressed patient on CellCept for ILD. Heme: Monitor CBC. Continue iron supplements. Endocrine: Increase SSI to high scale for glycemic control and increase Levemir 30u BID Prophylaxis: SCDs, Lovenox, Protonix Level 3 Mallika Barragan MD Apr 18, 2017 11:03
[2017-04-18] MEDS ORDERED: GLUCAGON 1 MG/ML VIAL OTHER PRN (12:30)
[2017-04-18] MEDS ORDERED: DEXTROSE 50% IN WATER 50 ML VIAL(D50) IV PUSH PRN (12:30)
[2017-04-18] MEDS: INSULIN NovoLIN REGULAR SUPPLEMENTAL SCALE SQ SCH ×3 (13:00→21:06)
--- NOTE | 2017-04-18 14:19 | HHI.HP ---
HPI Service Family Medicine Primary Care Physician Unknown Admission Diagnosis Pneumonia, pulmonary fibrosis, hypoxemia Diagnoses: (1) Respiratory distress Diagnosis: Principal (2) CHF (congestive heart failure) Diagnosis: Principal (3) Lactic acidosis Diagnosis: Principal (4) Essential hypertension Diagnosis: Principal (5) DM (diabetes mellitus) Diagnosis: Principal (6) CKD (chronic kidney disease) stage 3, GFR 30-59 ml/min Diagnosis: Principal (7) Anemia Diagnosis: Principal (8) FEN/PPX Diagnosis: Principal International Travel<30 Days: No Contact w/Intl Traveler<30days: No Known Affected Area: No History of Present Illness Mrs. See is a very pleasant 51 y/o black female who has an extensive PMHx of T2DM on insulin therapy, interstitial lung disease requiring home oxygen I suspect is due to her lupus, COPD, hypertension, Stage 3 CKD, iron deficiency anemia, and peripheral neuropathy, presenting with increasing SOB x 4-5 days. Her symptoms started one week prior to admission with thick, green/yellow discharge from her nose. She was seen by her manager health who told her to make an appointment with her registered dietetic technician. She was able to see Dr. Mcdaniel on 03/18, and she was prescribed an antibiotic. She does not recall the name. Due to transportation difficulties she was not able to fill this antibiotic until . At that time she developed tightness in her chest and a productive cough of yellow/green sputum. She denies hemoptysis. Her breathing gradually became worse and she called 911. Her oxygen was not working per EMT. She does report subjective fevers, chills, malaise, headaches, and fatigue. She report chest tightness, but no pain. She also has been having some epigastric abdominal pain and she thinks "this is because I have not eaten anything." For her DM, she is taking Levemir 30 units BID and a sliding scale Novolog. She has not required many units of novolog over the past 1 week and reports that her BG is ranging from 100-200. She has a history of multiple hospital admissions over the past few years with increasing renal failure as well as respiratory failure. She presented to the hospital in an escalating pattern of creatinines that went up to almost 4 as well as O2 sats that would drop into the 60s with initially reversible disease but then a pattern of pulmonary fibrosis worse basilar and lateral. She was diagnosed with lupus many years ago and meets the criteria per the Rheumatologic society with rashes, sun sensitivity, joint pains, proteinuria ( when not treated for her lupus) as well as an URIEL of greater than 1280 and a ESR of greater than 140 on past labs though thankfully not now that she is being treated. Fortunately, she responds extremely well to treatment and has been doing very well on cellcept as an outpt since December. She has done very well with her respiratory and renal fxn on the cellcept until this current hospitalization. Almost all her joint pain, mouth ulcers and other problems have all cleared up since December. She is stronger and able to walk more and be more active as well. She presented to the ED and received steroids and abx at 5 am. She was substantially better in just a few hours. She was able to come off her bipap and was just on nasal canula with good O2 sats yesterday later in the morning and today is 100% O2 sats on her nasal canula. In the past with her lupus flares , she would always respond beautifully to steroids as she has this time. Her CXR always shows her fibrosis and her exam is characteristic with bibasilar rales. Review of Systems Constitutional: COMPLAINS OF: Weight loss (off steroids), DENIES: Weight gain Respiratory: COMPLAINS OF: Hemoptysis, Shortness of breath Cardiovascular: DENIES: Chest pain, Lower Extremity Edema Gastrointestinal: DENIES: Abdominal pain, Anorexia Integumentary: COMPLAINS OF: Rash (in the past) Neurologic: DENIES: Abnormal gait Other ROS: Denies dysuria or urinary frequency. Denies nausea or vomiting. Denies stiff neck. Denies blurry vision. Constitutional: COMPLAINS OF: Diaphoretic episodes, Fatigue, Fever, Chills, Dizziness Eyes: DENIES: Blurred vision, Eye pain, Vision loss Musculoskeletal: COMPLAINS OF: Muscle aches, Stiffness Neurologic: COMPLAINS OF: Headache Psychiatric: DENIES: Confusion Past Family Social History Past Medical History Interstitial lung disease confirmed by lung biopsy in 2016, suspect this is from her lupus systemic lupus erythematous verified by criteria T2DM on insulin hypertension diabetic neuropathy possible COPD Past Surgical History Bronchosopy 2017 Wedge biopsy of left lung via thoracotomy (August 2016) Kidney Biopsy (July 2016) Allergies: Coded Allergies: No Known Allergies (Verified Allergy, Unknown, 04/17/17) Family History Father: ESRD, DM Mother: Lupus Sister: seizures, CVA Sister: bone problems Social History Tobacco: quit 10 years, 1PPD x 20 years Alcohol: denies Illicit: denies Home oxygen at 3L baseline Uses walker, cane for ambulation PRN Lives alone, "a few steps" at home, has assistive railing Physical Exam Vital Signs Vital Signs Date Time Temp Pulse Resp B/P (MAP) Pulse Ox O2 Delivery O2 Flow Rate FiO2 04/18/17 14:00 94 04/18/17 12:00 89 04/18/17 12:00 97.1 89 23 150/70 (96) 100 04/18/17 10:00 90 04/18/17 09:57 21 04/18/17 08:10 95 Nasal Cannula 4.00 04/18/17 08:00 96.7 90 34 120/77 (91) 89 04/18/17 08:00 70 04/18/17 06:00 77 04/18/17 05:07 16 04/18/17 04:05 100 40 04/18/17 04:00 98.4 75 20 156/74 (101) 100 04/18/17 04:00 75 04/18/17 02:00 77 04/18/17 01:57 100 40 04/18/17 00:00 98.6 79 22 140/73 (95) 100 04/18/17 00:00 79 04/18/17 00:00 100 40 04/17/17 22:00 78 04/17/17 20:01 98 Nasal Cannula 4.00 04/17/17 20:00 81 04/17/17 20:00 98.7 81 28 131/63 (85) 99 04/17/17 18:00 92 04/17/17 16:00 98.4 90 18 145/75 (98) 100 04/17/17 16:00 90 Physical Exam GENERAL: Alert and oriented. conversant and pleasant able to speak in full paragraphs SKIN: No rashes, ecchymoses or lesions. Cool and dry. HEAD: Atraumatic. Normocephalic. EYES: Pupils equal round and reactive. Extraocular motions intact. No scleral icterus. No injection or drainage. ENT: Nose without bleeding, purulent drainage or septal hematoma. NECK: Trachea midline. No JVD or lymphadenopathy. Supple, nontender, no meningeal signs. CARDIOVASCULAR: Regular rate and rhythm without murmurs, gallops, or rubs. RESPIRATORY: good air movement. bibasilar rales. clear upper lung be GASTROINTESTINAL: Abdomen soft, non-tender, nondistended. No hepato-splenomegaly , or palpable masses. No guarding. MUSCULOSKELETAL: Extremities without clubbing, cyanosis, or edema. No joint tenderness, effusion, or edema noted. No calf tenderness. Negative Homans sign bilaterally. NEUROLOGICAL: Awake and alert. Cranial nerves II through XII intact. Motor and sensory grossly within normal limits. Five out of 5 muscle strength in all muscle groups. Normal speech. Laboratory Laboratory Tests Test 04/18/17 05:06 White Blood Count 5.8 Red Blood Count 2.81 Hemoglobin 7.8 Hematocrit 24.0 Mean Corpuscular Volume 85.4 Mean Corpuscular Hemoglobin 27.8 Mean Corpuscular Hemoglobin Concent 32.5 Red Cell Distribution Width 14.9 Platelet Count 246 Mean Platelet Volume 8.1 Neutrophils (%) (Auto) 90.4 Lymphocytes (%) (Auto) 6.4 Monocytes (%) (Auto) 3.1 Eosinophils (%) (Auto) 0.0 Basophils (%) (Auto) 0.1 Neutrophils # (Auto) 5.2 Lymphocytes # (Auto) 0.4 Monocytes # (Auto) 0.2 Eosinophils # (Auto) 0.0 Basophils # (Auto) 0.0 CBC Comment DIFF FINAL Differential Comment Blood Urea Nitrogen 20 Creatinine 1.12 Random Glucose 327 Total Protein 6.9 Albumin 2.5 Calcium Level 8.5 Alkaline Phosphatase 117 Aspartate Amino Transf (AST/SGOT) 14 Alanine Aminotransferase (ALT/SGPT) 39 Total Bilirubin 0.3 Sodium Level 135 Potassium Level 4.2 Chloride Level 102 Carbon Dioxide Level 20.6 Anion Gap 12 Estimat Glomerular Filtration Rate 62 Date/Time Source Procedure Growth Status 04/17/17 04:59 Blood Peripheral Aerobic Blood Culture - Preliminary NO GROWTH IN 1 DAY Resulted 04/17/17 04:59 Blood Peripheral Anaerobic Blood Culture - Preliminary NO GROWTH IN 1 DAY Resulted 04/17/17 04:59 Nasal Aspirate Influenza Types A,B Antigen (MARY ELLEN) - Final NEGATIVE FOR FLU A AND B ANTIGEN.... Complete Result Diagram: 04/18/17 0506 04/18/17 0506 Imaging Last 72 hours Impressions Chest X-Ray 04/17/17 0456 Signed Impressions: Service Date/Time: Monday, April 17, 2017 05:17 - CONCLUSION: Cardiomegaly. There is increased density at the lateral left mid chest mainly related to the overlying scapula. Some degree of consolidation or atelectasis cannot be excluded. MD Mahesh Llanes VTE Risk Assessment Caprini VTE Risk Assessment: Mod/High Risk (score >= 2) Caprini Risk Assessment Model Point Value = 1 Point Value = 2 Point Value = 3 Point Value = 5 Age 41-60 Minor surgery BMI > 25 kg/m2 Swollen legs Varicose veins or History of unexplained or recurrent spontaneous Oral contraceptives or hormone replacement Sepsis (< 1 month) Serious lung disease, including pneumonia (< 1 month) Abnormal pulmonary function Acute myocardial infarction Congestive heart failure (< 1 month) History of inflammatory bowel disease Medical patient at bed rest Age 61-74 Arthroscopic surgery Major open surgery (> 45 min) Laparoscopic surgery (> 45 min) Malignancy Confined to bed (> 72 hours) Immobilizing plaster cast Central venous access Age >= 75 History of VTE Family history of VTE Factor V Leiden Prothrombin [id number] Lupus anticoagulant Anticardiolipin antibodies Elevated serum homocysteine Heparin-induced thrombocytopenia Other congenital or acquired thrombophilia Stroke (< 1 month) Elective arthroplasty Hip, pelvis, or leg fracture Acute spinal cord injury (< 1 month) Prophylaxis Regimen Total Risk Factor Score Risk Level Prophylaxis Regimen 0-1 Low Early ambulation 2 Moderate Order ONE of the following: *Sequential Compression Device (SCD) *Heparin 5000 units SQ BID 3-4 Higher Order ONE of the following medications: *Heparin 5000 units SQ TID *Enoxaparin/Lovenox 40 mg SQ daily (WT < 150 kg, CrCl > 30 mL/min) *Enoxaparin/Lovenox 30 mg SQ daily (WT < 150 kg, CrCl > 10-29 mL/min) *Enoxaparin/Lovenox 30 mg SQ BID (WT < 150 kg, CrCl > 30 mL/min) AND/OR *Sequential Compression Device (SCD) 5 or more Highest Order ONE of the following medications: *Heparin 5000 units SQ TID (Preferred with Epidurals) *Enoxaparin/Lovenox 40 mg SQ daily (WT < 150 kg, CrCl > 30 mL/min) *Enoxaparin/Lovenox 30 mg SQ daily (WT < 150 kg, CrCl > 10-29 mL/min) *Enoxaparin/Lovenox 30 mg SQ BID (WT < 150 kg, CrCl > 30 mL/min) AND *Sequential Compression Device (SCD) Assessment and Plan Assessment and Plan Mrs. See is a very pleasant 51 y/o black female with a PMHX of interstitial lung disease confirmed by lung biopsy in August 2016, SLE, and T2DM, who is presenting with worsening respiratory distress. She required BiPAP on admission and was admitted to the medical intensive care unit. Problem List: (1) Respiratory distress ICD Codes: R06.00 - Dyspnea, unspecified Status: Acute Plan: Satting at 84% on 4 L, and requiring BiPAP initially. CXR showed: 0600 on 04/17/17: Cardiomegaly. There is increased density at the lateral left mid chest mainly related to the overlying scapula. Some degree of consolidation or atelectasis cannot be excluded. Edwin Duncna MD AGB on admission showed pH of 7.45, pCO2 o30, PO2 43 LOW, HCO3 21. Echocardiogram in June 2016 showed EF 55-60%. Peak Pulmonary pressure of 70 mm Hg, suggestive of severe lung disease. CT lungs ordered Impression Likely Community acquired pneumonia, vs. COPD exacerbation vs. Bronchitis, vs. worsening CHF vs lupus pneumonitis. Intensivists was consulted and we appreciate their assistance in management. Broad spectrum ABX given immunosuppressive therapy with Cellcept: -Cefepime 2 g q 8 hours -Azithromycin 1 g q 24 hours Gentle IVF: 75 ml/hr NS Duoneb treatments q 4 hours scheduled. Albuterol nebulizer q 2 hours as needed for SOB. IV Solumedrol 60 mg IV q 6 hours, will decrease as she is doing very well today. Blood cultures x 2. getting quickly back to baseline suspect there is an element of lupus pneumonitis as greater than 50% of lupus patients have lung disease. she has all the hallmarks with her PFTs showing restrictive disease (not obstructive). she had no lung problems requiring hospitalization until the fall of 2014 when her lupus "kicked into a higher gear ". She was on a downhill path until her lupus was adequately treated. Typically , lupus can cause an inflammatory lung disease which over time becomes permanent scarring with fibrosis. her cellcept is one of the best meds for slowing any fibrotic damage. she responded so quickly to steroids that only an inflammatory process could get better that fast (every time). COPD, pneumonia, bronchitis all normally take longer than a few hours to improve that much. she took no bumex so was not treated for CHF. unsure if this respiratory problem at this time is exacerbated by an underlying infection. However, she will need to be watched carefully to be sure she is stable with her lupus once this episode is ended. Otherwise, Dr Larsen is her Estate Agent and has been wonderful about keeping her in good control. (2) CHF (congestive heart failure) ICD Codes: I50.9 - Heart failure, unspecified Status: Acute Plan: BNP elevated on admission to 350. Troponin < 0.02. No lower extremity edema. Compensated at this point. ? Cor pulmonale phenomenon. Careful with IVF as above. Repeat CXR in AM. held Bumex 1 mg PO BID. she had a good EF on her last echo so her bumex was held. her renal fxn is better today (maybe from steroids as well as her kidneys always get better with steroids) (3) Lactic acidosis ICD Codes: E87.2 - Acidosis Status: Acute Plan: LA 4.0 on admission --> reduced to 2.0 after improvement of respiratory status. Likely 2/2 increased work of breathing (4) Essential hypertension ICD Codes: I10 - Essential (primary) hypertension Status: Chronic Plan: Continue with Losartan 25 mg daily. Monitor VS q 4 hours. Adjust antihypertensive regimen as needed. (5) DM (diabetes mellitus) ICD Codes: E11.9 - Type 2 diabetes mellitus without complications Status: Chronic Plan: On levemir 30 units BID at home. Well controlled with this regimen. Will using medium dose sliding scale Novlog. May add 20 units of Levemir BID if still remaining high. BG on admission was 256. did increase 2/2 high dose of IV glucocorticoids. (6) CKD (chronic kidney disease) stage 3, GFR 30-59 ml/min ICD Codes: N18.3 - Chronic kidney disease, stage 3 (moderate) Status: Acute Plan: At baseline. IVF as above. Avoid nephrotoxic medications. Strict I&Os. Daily CMP. Avoid contrast dye. she is doing well with her renal fxn at this time (7) Anemia ICD Codes: D64.9 - Anemia, unspecified Status: Chronic Plan: Hold iron therapy given epigastric pain and possible gastritis. checking another H/H this afternoon (8) FEN/PPX Status: Acute Plan: Fluids: Above. GI ppx: Pantoprazole 40 mg PO if tolerated. May require IV. DVT: Lovenox 30 mg daily. Diet: diabetic diet Problem Qualifiers (1) DM (diabetes mellitus): Qualified Codes: E11.8 - Type 2 diabetes mellitus with unspecified complications; Z79.4 - MCC (current) use of insulin (2) Anemia: Qualified Codes: D64.9 - Anemia, unspecified Noreen Rodríguez MD Apr 18, 2017 14:19
[2017-04-18 15:02] LABS: HEMATOCRIT 27.5 % (35.0-46.0); HEMOGLOBIN 9.2 GM/DL (11.6-15.3)
[2017-04-18 17:48] LABS: BILIRUBIN, URINE NEG (NEG); BLOOD, URINE NEG (NEG); GLUCOSE,URINE 1000 mg/dL (NEG); KETONE, URINE 40 mg/dL (NEG); NITRITE,URINE NEG (NEG); PH, URINE 5.5 (5.0-8.5); SQUAMOUS EPITHELIAL CELL URINE <1 /hpf (0-5); URINE COLOR YELLOW (YELLW/STRAW); URINE LEUKOCYTE ESTERASE NEG (NEG)
[2017-04-18] MEDS: MONTELUKAST SODIUM 10 MG TAB PO SCH (21:05)
--- NOTE | 2017-04-18 22:04 | RADRPT ---
EXAM DATE/TIME: 04/18/2017 21:21 [facility] COMPARISON: CT THORAX W/O CONTRAST, August 24, 2016, 22:49. INDICATIONS : Shortness of breath. RADIATION DOSE: 9.59 CTDIvol (mGy) MEDICAL HISTORY : Lupus. Chronic obstructive pulmonary disease. Hypertension. Diabetes mellitus type 2. Renal disease . SURGICAL HISTORY : Hysterectomy. ENCOUNTER: Initial ACUITY: 1 day PAIN SCALE: 0/10 LOCATION: chest TECHNIQUE: Volumetric scanning of the chest was performed. Using automated exposure control and adjustment of t he mA and/or kV according to patient size, radiation dose was kept as low as reasonably achievable to obtain optimal diagnostic quality images. DICOM format image data is available electronically for r eview and comparison. Follow-up recommendations for detected pulmonary nodules are based at a minimum on nodule size and pa tient risk factors according to Fleischner Society Guidelines. FINDINGS: LUNGS: The appearance of the lung parenchyma is unchanged from the prior study. Chronic interstitial changes are again seen particularly within the lung bases. There is associated sludge or bronchiectasis with in both lower lobes. Upper lobes are less heavily involved. No acute infiltrate. PLEURAE: There is a small focal area of pleural thickening involving the left lateral hemithorax. This is asso ciated with a small calcification. This is new from the prior exam. No effusions. MEDIASTINUM: The heart is mildly large without pericardial effusion. Aorta and pulmonary arteries are normal in ca liber. Small anterior mediastinal lymph nodes are stable from the prior study. AXILLAE: Within normal limits. No lymphadenopathy. MUSCULOSKELETAL: A degenerative thoracic spine. MISCELLANEOUS: The visualized upper abdominal organs demonstrate no acute abnormality. CONCLUSION: 1. Chronic changes involving the lungs including chronic interstitial change and bronchiectasis. Ther e is also an area of pleural thickening likely postinflammatory within the left hemithorax. 2. Stable mediastinal adenopathy. 3. Cardiomegaly. 4. No acute infiltrate or effusion. Arik Desouza Jr., MD on April 18, 2017 at 21:56 Board Certified Radiologist. This report was verified electronically.
[2017-04-18] MEDS: MORPHINE SULFATE 2 MG/ML INJ IV PUSH PRN (23:52)
[2017-04-19] VITALS (14 sets, daily range): BP systolic 113–146; BP diastolic 62–82; PULSE 75–109; RESP 16–33; TEMP 96.7–98.7; O2SAT 97–100
[2017-04-19] MEDS: INSULIN NovoLIN REGULAR SUPPLEMENTAL SCALE SQ SCH ×4 (01:56→13:00)
[2017-04-19] MEDS: RESP: ALBUTEROL 2.5 MG/IPRATROPIUM 0.5 MG NEB (SCH) INH ×5 (03:52→21:22)
[2017-04-19] MEDS: CEFEPIME INJ 2,000 MG in SODIUM CHLORIDE 0.9% INJ 100 ML IV SCH ×2 (03:54→15:28)
[2017-04-19] MEDS: CHLORHEXIDINE GLUCONATE 2 % 1 PACK (2 CLOTHS) TOP SCH (03:57)
[2017-04-19] MEDS: AZITHROMYCIN INJ 500 MG in SODIUM CHLOR 0.9% 250 ML INJ 250 ML IV SCH (05:36)
[2017-04-19 07:49] LABS: AUTOMATED NEUTROPHIL # 9.7 TH/MM3 (1.8-7.7); BASOPHIL % 0.1 % (0.0-2.0); HEMATOCRIT 27.1 % (35.0-46.0); HEMOGLOBIN 8.7 GM/DL (11.6-15.3); LYMPH % 3.5 % (9.0-44.0); LYMPHOCYTE # 0.4 TH/MM3 (1.0-4.8); MEAN CELL VOLUME 85.2 FL (80.0-100.0); MEAN CORPUSCULAR HEMOGLOBIN 27.4 PG (27.0-34.0); MEAN CORPUSCULAR HGB CONC 32.2 % (32.0-36.0); MEAN PLATELET VOLUME 7.9 FL (7.0-11.0); MONO % 3.5 % (0.0-8.0); MONOCYTE # 0.4 TH/MM3 (0-0.9); NEUT % 92.9 % (16.0-70.0); PLATELET COUNT 294 TH/MM3 (150-450); RED BLOOD COUNT 3.18 MIL/MM3 (4.00-5.30); RED CELL DISTRIBUTION WIDTH 15.2 % (11.6-17.2); WHITE BLOOD COUNT 10.4 TH/MM3 (4.0-11.0)
[2017-04-19 08:10] LABS: BICARBONATE 20.9 MEQ/L (21.0-32.0); CALCIUM 8.2 MG/DL (8.5-10.1); CREATININE 1.16 MG/DL (0.50-1.00); MAGNESIUM 1.7 MG/DL (1.5-2.5); PHOSPHORUS 2.7 MG/DL (2.5-4.9)
--- NOTE | 2017-04-19 08:42 | HHI.CCPN ---
Subjective Remarks/Hospital Course 51-year-old female with a medical history significant for idiopathic interstitial lung disease on home oxygen, COPD, type 2 diabetes mellitus, stage III CK D who developed shortness of breath with productive cough about one week prior to presentation. She was seen by a welder apprentice and referred to Dr. Souza for pulmonary physician who saw her on April 12, 2017 and she was prescribed an antibiotic however she did not start the antibiotic prescription pill 04/15. She developed worsening cough with shortness of breath and was eventually brought to the ER by EMS this morning. Patient was extremely short of breath and hypoxic and was placed on BiPAP following arrival in the ER. She received empiric antibiotics after cultures were obtained. Patient was admitted by family medicine service and critical care consult was requested for respiratory failure requiring BiPAP. When I evaluated the patient she was in the ER setting of on BiPAP with full facemask. She felt that her breathing was better since initiation of BiPAP. History was obtained by discussion with ER physician as well as patient. 04/18 Patient is on 4L oxygen with good sats. Afebrile. 04/09 No events overnight. Patient was on BIPAP overnight and now is on 4L oxygen. CT chest yesterday showed chronic interstitial changes and bronchiectasis. Objective Vital Signs Date Time Temp Pulse Resp B/P (MAP) Pulse Ox O2 Delivery O2 Flow Rate FiO2 04/19/17 07:45 100 Nasal Cannula 4.00 04/19/17 06:00 82 04/19/17 04:32 40 04/19/17 04:00 98.7 19 145/78 (100) Intake and Output 04/19/17 04/19/17 04/20/17 08:00 16:00 00:00 Intake Total 400 ml Balance 400 ml Result Diagram: 04/19/17 0555 04/19/17 0555 Other Results Laboratory Tests Test 04/18/17 14:44 04/18/17 16:30 04/19/17 05:55 Hemoglobin 9.2 GM/DL 8.7 GM/DL Hematocrit 27.5 % 27.1 % Urine Color YELLOW Urine Turbidity CLEAR Urine pH 5.5 Urine Specific Opal 1.020 Urine Protein 30 mg/dL Urine Glucose (UA) 1000 mg/dL Urine Ketones 40 mg/dL Urine Occult Blood NEG Urine Nitrite NEG Urine Bilirubin NEG Urine Urobilinogen LESS THAN 2.0 MG/DL Urine Leukocyte Esterase NEG Urine RBC LESS THAN 1 /hpf Urine WBC LESS THAN 1 /hpf Urine Squamous Epithelial Cells <1 /hpf Microscopic Urinalysis Comment CULT NOT INDICATED White Blood Count 10.4 TH/MM3 Red Blood Count 3.18 MIL/MM3 Mean Corpuscular Volume 85.2 FL Mean Corpuscular Hemoglobin 27.4 PG Mean Corpuscular Hemoglobin Concent 32.2 % Red Cell Distribution Width 15.2 % Platelet Count 294 TH/MM3 Mean Platelet Volume 7.9 FL Neutrophils (%) (Auto) 92.9 % Lymphocytes (%) (Auto) 3.5 % Monocytes (%) (Auto) 3.5 % Eosinophils (%) (Auto) 0.0 % Basophils (%) (Auto) 0.1 % Neutrophils # (Auto) 9.7 TH/MM3 Lymphocytes # (Auto) 0.4 TH/MM3 Monocytes # (Auto) 0.4 TH/MM3 Eosinophils # (Auto) 0.0 TH/MM3 Basophils # (Auto) 0.0 TH/MM3 CBC Comment DIFF FINAL Differential Comment Blood Urea Nitrogen 24 MG/DL Creatinine 1.16 MG/DL Random Glucose 234 MG/DL Calcium Level 8.2 MG/DL Phosphorus Level 2.7 MG/DL Magnesium Level 1.7 MG/DL Sodium Level 139 MEQ/L Potassium Level 3.9 MEQ/L Chloride Level 107 MEQ/L Carbon Dioxide Level 20.9 MEQ/L Anion Gap 11 MEQ/L Estimat Glomerular Filtration Rate 59 ML/MIN Imaging Last Impressions Chest X-Ray 04/18/17 0000 Signed Impressions: Service Date/Time: April 03:03 - CONCLUSION: Diffuse increased interstitial markings likely related to edema or underlying chronic interstitial disease. Edwin Duncan MD Chest CT 04/18/17 0000 Signed Impressions: Service Date/Time: April 21:21 - CONCLUSION: 1. Chronic changes involving the lungs including chronic interstitial change and bronchiectasis. There is also an area of pleural thickening likely postinflammatory within the left hemithorax. 2. Stable mediastinal adenopathy. 3. Cardiomegaly. 4. No acute infiltrate or effusion. Arik Desouza Jr., MD Objective Remarks GENERAL: Patient is 51 yo siting up in bed in [facility] SKIN: Warm and dry. HEAD: Normocephalic. EYES: No scleral icterus. No injection or drainage. NECK: Supple, trachea midline. No JVD or lymphadenopathy. CARDIOVASCULAR: Regular rate and rhythm without murmurs, gallops, or rubs. RESPIRATORY: Breath sounds equal bilaterally. No accessory muscle use. Coarse BS GASTROINTESTINAL: Abdomen soft, non-tender, nondistended. MUSCULOSKELETAL: No cyanosis, or edema. Neuro: Awake and alert A/P Assessment and Plan 51-year-old female with: Acute respiratory failure requiring BiPAP Interstitial lung disease Left lower lobe pneumonia COPD CHF Hypertension Type 2 diabetes mellitus Anemia Plan: Neuro: Monitor neuro status, avoid sedatives and narcotics. CV: Monitor HR and BP keep MAP>65mmHg Lactic acid cleared. On ASA, Cozaar Pulmo: Continue with oxygen keep sat >92% Bronchodilators, IV steroids solumederol 40mg Q12 CT chest showed chronic interstitial changes and bronchiectasis. Pulm is consulted GI/liver:On PO diabetic diet Renal/: Monitor renal function, electrolytes replacement as needed/ d/c IVF ID: Continue empiric antibiotics including cefepime/Zithromax. Immunosuppressed patient on CellCept for ILD. Follow up on strep pneumonia and Legionella urinary AG Heme: Monitor CBC. Continue iron supplements. Endocrine:SSI (high scale) for glycemic control and Levemir 30u BID Prophylaxis: SCDs, Lovenox, Protonix Will sign off and transfer to floor. Level 2 Mallika Barragan MD Apr 19, 2017 08:42
[2017-04-19] MEDS: CALCITRIOL 0.25 MCG CAP PO SCH (08:55)
[2017-04-19] MEDS: BUDESONIDE-FORMOTEROL 160/4.5 MCG INHALER INH SCH ×2 (08:55→20:54)
[2017-04-19] MEDS: ASPIRIN 81 MG CHEW TAB CHEW SCH (08:56)
[2017-04-19] MEDS: MYCOPHENOLATE MOFETIL 500 MG TAB PO SCH ×3 (08:56→23:16)
[2017-04-19] MEDS: LOSARTAN 25 MG TAB PO SCH (08:56)
[2017-04-19] MEDS: PANTOPRAZOLE SOD 40 MG DELAYED RELEASE TAB PO SCH (08:56)
[2017-04-19] MEDS: DOCUSATE SODIUM 50 MG/SENNA 8.6 MG TAB PO SCH ×2 (08:56→20:54)
[2017-04-19] MEDS: POTASSIUM CHLORIDE 10 MEQ CONTROLLED RELEASE TAB PO SCH (08:56)
[2017-04-19] MEDS: GABAPENTIN 400 MG CAP PO SCH ×2 (08:56→20:55)
[2017-04-19] MEDS: SODIUM CHLORIDE 0.9% FLUSH 10 ML FLUSH IV FLUSH SCH ×2 (08:57→21:05)
[2017-04-19] MEDS: oxyCODONE/ACETAMINOPHEN 5 MG/325 MG TAB PO PRN ×2 (08:57→20:29)
[2017-04-19] MEDS: INSULIN DETEMIR 100 UNITS/ML VIAL SQ SCH ×2 (08:57→20:59)
[2017-04-19] MEDS: LACTOBACILLUS ACIDOPHILUS TAB PO SCH ×2 (09:08→20:54)
--- NOTE | 2017-04-19 10:03 | HHI.FPPN ---
Subjective Remarks No acute events overnight. VS unremarkable. This morning patient reports that she is doing well but continue to cough with hempotysis. Amount has not increased. Reports that this has happened in the past. Coughing has made her abdomen sore but otherwise patient denies any other symptoms. (Laurie Snell MD, R3) Objective Vitals Vital Signs Date Time Temp Pulse Resp B/P (MAP) Pulse Ox O2 Delivery O2 Flow Rate FiO2 04/19/17 07:45 100 Nasal Cannula 4.00 04/19/17 06:00 82 04/19/17 04:32 100 40 04/19/17 04:00 98.7 77 19 145/78 (100) 100 04/19/17 04:00 77 04/19/17 02:00 84 04/19/17 01:15 100 40 04/19/17 00:00 109 04/19/17 00:00 98.5 109 33 113/62 (79) 100 04/18/17 23:57 20 04/18/17 23:55 100 40 04/18/17 22:00 92 04/18/17 20:00 88 04/18/17 20:00 98.8 88 22 156/81 (106) 97 04/18/17 20:00 91 Nasal Cannula 4.00 04/18/17 18:00 82 04/18/17 16:00 93 04/18/17 16:00 97.3 93 17 142/76 (98) 95 04/18/17 14:00 94 04/18/17 12:00 89 04/18/17 12:00 97.1 89 23 150/70 (96) 100 I/O 04/18/17 04/18/17 04/18/17 04/19/17 04/19/17 04/19/17 07:00 15:00 23:00 07:00 15:00 23:00 Intake Total 350 ml 333 ml 500 ml 400 ml Output Total 1000 ml Balance 350 ml 333 ml -500 ml 400 ml Intake Oral 400 ml 400 ml IV Total 350 ml 333 ml 100 ml Output Urine Total 1000 ml # Voids 2 1 # Bowel Movements 0 0 (Laurie Snell MD, R3) Result Diagram: 04/19/17 0555 04/19/17 0555 Objective Remarks GEN: Well-developed, well-nourished patient. No acute distress. CV: Regular rate and rhythm without obvious murmurs LUNGS: Clear to auscultation bilaterally. Normal respiratory effort. No wheezes , rales, rhonchi. GI: Soft, nontender, nondistended. No palpable masses. NEURO/PSYCH: Awake, alert. Appropriate insight and judgment. Normal speech (Laurie Snell MD, R3) A/P Assessment and Plan Patient is a 51yo female with PMH significant fo interstitial lung disease likely related to SLE and DM. Admitted for respiratory distress that initially required BiPAP Discharge Planning 1-2days pending improvement in respiratory status dw Dr. Rodríguez (Laurie Snell MD, R3) Attending Attestation Patient seen and examined. Case reviewed and discussed with the resident team. Agree with plan of care as discussed with me and documented in the resident note. pulmonary has evaluated her as she has had some hemoptysis in the past (Noreen Rodríguez MD) Problem List: (1) Respiratory distress ICD Codes: R06.00 - Dyspnea, unspecified Status: Resolved Plan: History of interstitial lung disease likely related to lupus. Presented with hypoxia at 84% on 4 L of nasal cannula. Required BiPAP in the emergency room. Was able to weaned down to nasal cannula prior to moving out of the ED. Has remained on nasal cannula since. Chest x-ray significant for increased density at the lateral left mid chest. Concern for possible infectious etiology as well. -ABG on admission showed pH of 7.45, pCO2 o30, PO2 43 LOW, HCO3 21. -Echocardiogram in June 2016 showed EF 55-60%. Peak Pulmonary pressure of 70 mm Hg, suggestive of severe lung disease. -Elevated BNP likely related to pulmonary hypertension/chronic interstitial lung disease -Blood cultures NGTD -strep and legionella negative getting quickly back to baseline Pulmonary consulted: appreciate recommendations Imaging: * CT lungs: Chronic changes involving the lungs including chronic interstitial changes and bronchiectasis. There is also an area of pleural thickening likely postinflammatory within the left hemothorax. Stable mediastinal adenopathy. Cardiomegaly. No acute infiltrate or effusion. * CXR 04/18: Diffuse increased interstitial markings likely related to edema or underlying chronic interstitial disease * CXR 04/17: Cardiomegaly. There is increased density at the lateral left mid chest mainly related to the overlying scapula. Some degree of consolidation or atelectasis cannot be excluded. Medications: * Solumedrol to be tapered to oral prednisone * Azithromycin (04/17-04/19) * Cefepime (04/17-04/19) * Plan to transition to levaquin 04/20- * Duoneb treatments q 4 hours scheduled. * Albuterol nebulizer q 2 hours as needed for SOB. * Symbicort Relevant History: Suspect there is an element of lupus pneumonitis as greater than 50% of lupus patients have lung disease. she has all the hallmarks with her PFTs showing restrictive disease (not obstructive). she had no lung problems requiring hospitalization until the fall when her lupus "kicked into a higher gear ". She was on a downhill path until her lupus was adequately treated. Typically , lupus can cause an inflammatory lung disease which over time becomes permanent scarring with fibrosis. her cellcept is one of the best meds for slowing any fibrotic damage. She responded so quickly to steroids that only an inflammatory process could get better that fast (every time). COPD, pneumonia, bronchitis all normally take longer than a few hours to improve that much. Otherwise, Dr Larsen is her Second Helper and has been wonderful about keeping her in good control. (2) Cough with hemoptysis ICD Codes: R04.2 - Hemoptysis Plan: History of hemoptysis with these respiratory distress episodes. Hemoglobin stable. Continue to monitor. -See more detailed plan above (3) Lactic acidosis ICD Codes: E87.2 - Acidosis Status: Resolved Plan: LA 4.0 on admission --> reduced to 2.0 after improvement of respiratory status. Likely 2/2 increased work of breathing (4) Essential hypertension ICD Codes: I10 - Essential (primary) hypertension Status: Chronic Plan: Continue with Losartan 25 mg daily. Monitor VS q 4 hours. Adjust antihypertensive regimen as needed. (5) DM (diabetes mellitus) ICD Codes: E11.9 - Type 2 diabetes mellitus without complications Status: Chronic Plan: On levemir 50units in AM/40units at night at home plus 35units + sliding scale at home. -Hyperglycemia worsened by steroid use. -Increased levemir to 35units BID but 7 pre-prandial +sliding scale (6) CKD (chronic kidney disease) stage 3, GFR 30-59 ml/min ICD Codes: N18.3 - Chronic kidney disease, stage 3 (moderate) Status: Acute Plan: At baseline. Continue to monitor Avoid nephrotoxic medications. Strict I&Os. Avoid contrast dye. (7) Anemia ICD Codes: D64.9 - Anemia, unspecified Status: Chronic Plan: Hold iron therapy given epigastric pain and possible gastritis. -H&H stable but we'll continue to hold iron supplementation (8) FEN/PPX Status: Acute Plan: Fluids: none Electrolytes: monitor and replace as needed GI ppx: Pantoprazole 40 mg PO DVT: Lovenox, closely monitor for bleed. Diet: diabetic diet (Laurie Snell MD, R3) Problem Qualifiers (1) DM (diabetes mellitus): Qualified Codes: E11.8 - Type 2 diabetes mellitus with unspecified complications; Z79.4 - escort service attendant (current) use of insulin (2) Anemia: Qualified Codes: D64.9 - Anemia, unspecified Laurie Snell MD, R3 Apr 19, 2017 10:03 Noreen Rodríguez MD Apr 22, 2017 09:30
[2017-04-19] MEDS: ENOXAPARIN SODIUM 30 MG/0.3 ML SYRINGE SQ SCH (11:09)
[2017-04-19] MEDS: methylPREDNISolone SOD SUCC 125 MG/2 ML VIAL IV PUSH SCH ×2 (11:09→23:17)
[2017-04-19] MEDS ORDERED: guaiFENesin E.R. 600 MG TAB PO ONE (12:30)
[2017-04-19] MEDS ORDERED: PILL SPLITTER OTHER PRN (14:30)
[2017-04-19] MEDS: INSULIN ASPART 1,000 UNITS/10 ML VIAL SQ SCH (17:00)
[2017-04-19] MEDS ORDERED: INSULIN ASPART 1,000 UNITS/10 ML VIAL SQ SCH (17:00)
[2017-04-19] MEDS: INSULIN ASPART SUPPLEMENTAL SCALE SQ SCH ×2 (17:00→21:00)
[2017-04-19] MEDS: guaiFENesin E.R. 600 MG TAB PO SCH (20:55)
[2017-04-19] MEDS: MONTELUKAST SODIUM 10 MG TAB PO SCH (21:01)
--- NOTE | 2017-04-19 21:52 | MB ---
cc: MARITO MARTINEZ DATE OF CONSULTATION 04/19/17 REASON FOR CONSULTATION Pulmonary fibrosis. HISTORY OF PRESENT ILLNESS This is a 50-year-old lady with a past history of idiopathic pulmonary fibrosis who has been on home O2 at 3 liters nasal cannula. She has a history of diabetes mellitus type 2, history of COPD, history of lupus and mixed collagen syndrome as well as chronic kidney disease stage III who was seen in the emergency room for shortness of breath and persistent cough with wheezing. She was hypoxic and placed on a BiPap mask in the emergency room and a chest x-ray that was done showed evidence of interstitial infiltrates. CT chest was then done on 04/08/2017 and it showed chronic changes involving the lower lobe as well as bronchiectasis and area of pleural thickening in the left hemithorax. There was mediastinal adenopathy which was stable and no other acute infiltrates were noted. The patient is presently on O2 at 4 liters and maintaining a saturation of over 92%. She has no chest pain. She has a cough, brings up very little mucus. She has had some leg swelling. She has been on IV steroids and seems to be responding to it. The patient does follow with a program specialist for her systemic lupus. PAST MEDICAL HISTORY 1. History of a diabetes mellitus type 2, 2. History of interstitial lung disease status post lung biopsy last year 3. History of systemic lupus ? 4. History of hypertension 5. History of chronic bronchitis. 6. Diabetic neuropathy PAST SURGICAL HISTORY 1. ____ biopsy of left lung August 2016 2. History of renal biopsy August 15 FAMILY HISTORY Significant for diabetes and kidney disease in her father, lupus in her mother. HABITS The patient smoked one-pack per day for 20 years and quit. No significant alcohol or other drug use. The patient lives alone and he is on home oxygen. REVIEW OF SYSTEMS The patient has gained weight and has leg swelling. She has joint pains and shortness of breath and persistent cough. She has no urinary symptoms. She has some anxiety attacks. No headaches or blackouts. She has some sinus drainage and denies skin lesions. PHYSICAL EXAMINATION GENERAL: This is an averagely built middle-aged -[place]ir[place] female who is alert, pale and mildly dyspneic at rest. There is mild clubbing. Mild peripheral edema. VITAL SIGNS: Blood pressure 110/70, pulse of 104, respirations 22, temperature 98.5. HEENT: Head normocephalic. Pupils reactive and equal. Tongue is moist. Throat is injected. Nasal mucosa edematous. NECK: Supple. No bruits or thyroid enlargement or lymphadenopathy. CHEST: Distant breath sounds with fine basilar crackles, more so on the left side. Occasional wheezes anteriorly. HEART: Sounds are irregular S1, S2 with no murmur. No S3. ABDOMEN: Soft, obese without masses, no organomegaly or tenderness. Bowel sounds active. EXTREMITIES: Decreased pulses. NEUROLOGIC: Reflexes are 1+, minimal edema. Neurologically There were no focal deficits. SKIN: No lesions. IMPRESSION 1. Chronic interstitial lung disease with bronchiectasis 2. Basilar pneumonia 3. Acute hypoxic respiratory failure resolving. 4. Chronic bronchitis with COPD. 5. Congestive heart failure, resolving. 6. Diabetes mellitus 7. Hypertension. PLAN The patient has been placed on O2 at 4 liters, nebulized DuoNeb solution added q.i.d. We will continue with BiPap at night if she is stable and steroids to be tapered down to Solu-Medrol 40 mg twice a day. Continue with Bumex 1 mg a day. The patient will have a follow up chest x-ray this week and O2 will be weaned down to maintain sats above 92. The patient will be placed on Symbicort 160/4.5 mcg 2 puffs twice daily. Thank you, Dr. Rodríguez, for this consultation. MD HOLLEY Polk/ /7:31 PM /9:23 PM
[2017-04-20] VITALS (7 sets, daily range): BP systolic 101–145; BP diastolic 65–69; PULSE 78–84; RESP 16–20; TEMP 96.2–96.9; O2SAT 97–100
[2017-04-20] MEDS: RESP: ALBUTEROL 2.5 MG/IPRATROPIUM 0.5 MG NEB (SCH) INH ×5 (00:04→20:47)
[2017-04-20] MEDS: CHLORHEXIDINE GLUCONATE 2 % 1 PACK (2 CLOTHS) TOP SCH (00:27)
[2017-04-20] MEDS: CEFEPIME INJ 2,000 MG in SODIUM CHLORIDE 0.9% INJ 100 ML IV SCH (04:04)
[2017-04-20] MEDS: MORPHINE SULFATE 2 MG/ML INJ IV PUSH PRN ×3 (04:04→20:35)
[2017-04-20 06:50] LABS: AUTOMATED NEUTROPHIL # 9.7 TH/MM3 (1.8-7.7); BASOPHIL % 0.1 % (0.0-2.0); HEMATOCRIT 25.3 % (35.0-46.0); HEMOGLOBIN 8.3 GM/DL (11.6-15.3); LYMPH % 4.9 % (9.0-44.0); LYMPHOCYTE # 0.5 TH/MM3 (1.0-4.8); MEAN CELL VOLUME 85.1 FL (80.0-100.0); MEAN CORPUSCULAR HEMOGLOBIN 28.1 PG (27.0-34.0); MEAN PLATELET VOLUME 8.2 FL (7.0-11.0); MONO % 3.8 % (0.0-8.0); MONOCYTE # 0.4 TH/MM3 (0-0.9); NEUT % 91.2 % (16.0-70.0); PLATELET COUNT 301 TH/MM3 (150-450); RED BLOOD COUNT 2.97 MIL/MM3 (4.00-5.30); RED CELL DISTRIBUTION WIDTH 15.1 % (11.6-17.2); WHITE BLOOD COUNT 10.7 TH/MM3 (4.0-11.0)
[2017-04-20 07:02] LABS: BICARBONATE 23.8 MEQ/L (21.0-32.0); CALCIUM 8.4 MG/DL (8.5-10.1); CREATININE 1.23 MG/DL (0.50-1.00)
--- NOTE | 2017-04-20 08:19 | RADRPT ---
EXAM DATE/TIME: 04/20/2017 08:09 [facility] COMPARISON: CHEST SINGLE AP, April 18, 2017, 3:03. INDICATIONS : Shortness of breath. MEDICAL HISTORY : None. SURGICAL HISTORY : None. ENCOUNTER: Subsequent ACUITY: 4 - 6 days PAIN SCORE: 0/10 LOCATION: chest FINDINGS: Slight cardiomegaly and prominence of the interstitial markings have not changed. Focal consolidation is not seen. CONCLUSION: No appreciable change. Margot Madrigal MD on April 20, 2017 at 8:16 Board Certified Radiologist. This report was verified electronically.
--- NOTE | 2017-04-20 08:34 | HHI.FPPN ---
Subjective Remarks Patient seen and examined this morning. No acute events overnight per report. Vital signs remain WNL with 4L nasal cannula. Patient reports that she is 60% better from her admission, but does not feel "back to normal." She expresses hope that she could possibly receive a lung transplant in order to stop her supplemental oxygen. Medical team explained that transplant is not likely at this time as her symptoms are stable once she is treated with steroids during her recent hospitalizations. Thus her likely etiology of her interstitial fibrosis is due to her lupus. Otherwise she has no complaints and denies any fevers, chills, chest pain, shortness of breath, NVD, abdominal pain, or calf tenderness. (Kayden Warren MD R2) Objective Vitals Vital Signs Date Time Temp Pulse Resp B/P (MAP) Pulse Ox O2 Delivery O2 Flow Rate FiO2 04/20/17 03:43 99 40 04/20/17 00:19 97 40 04/20/17 00:00 96.8 82 16 101/66 (78) 98 04/19/17 21:23 Nasal Cannula 4.00 04/19/17 20:00 96.8 79 16 122/76 (91) 97 04/19/17 18:00 75 04/19/17 16:00 97.4 83 28 146/72 (96) 100 04/19/17 16:00 83 04/19/17 14:00 88 04/19/17 12:00 96.7 90 20 124/64 (84) 99 04/19/17 12:00 90 04/19/17 10:00 89 04/19/17 09:57 24 I/O 04/19/17 04/19/17 04/19/17 04/20/17 04/20/17 04/20/17 07:00 15:00 23:00 07:00 15:00 23:00 Intake Total 400 ml 1000 ml Output Total 975 ml 600 ml Balance 400 ml 25 ml -600 ml Intake Oral 400 ml 1000 ml Output Urine Total 975 ml 600 ml # Voids 1 3 # Bowel Movements 0 1 (Kayden Warren MD R2) Result Diagram: 04/20/17 0536 04/20/17 0536 Objective Remarks GEN: Well-developed, well-nourished patient. No acute distress. CV: Regular rate and rhythm without obvious murmurs LUNGS: Clear to auscultation bilaterally. Normal respiratory effort. No wheezes , rales, rhonchi. GI: Soft, nontender, nondistended. No palpable masses. NEURO/PSYCH: Awake, alert. Appropriate insight and judgment. Normal speech (Kayden Warren MD R2) A/P Assessment and Plan Patient is a 51yo female with PMH significant fo interstitial lung disease likely related to SLE and DM. Admitted for respiratory distress that initially required BiPAP Discharge Planning Pending improvement in respiratory status dw Dr. Rodríguez (Kayden Warren MD R2) Attending Attestation Patient seen and examined. Case reviewed and discussed with the resident team. Agree with plan of care as discussed with me and documented in the resident note. she continues to improve daily as far as her breathing and endurance and stamina with walking (Noreen Rodríguez MD) Problem List: (1) Respiratory distress ICD Codes: R06.00 - Dyspnea, unspecified Status: Resolved Plan: History of interstitial lung disease likely related to lupus. Presented with hypoxia at 84% on 4 L of nasal cannula. Required BiPAP in the emergency room. Was able to weaned down to nasal cannula prior to moving out of the ED. Has remained on nasal cannula since. Chest x-ray significant for increased density at the lateral left mid chest. Concern for possible infectious etiology as well. -ABG on admission showed pH of 7.45, pCO2 o30, PO2 43 LOW, HCO3 21. -Echocardiogram in June 2016 showed EF 55-60%. Peak Pulmonary pressure of 70 mm Hg, suggestive of severe lung disease. -Elevated BNP likely related to pulmonary hypertension/chronic interstitial lung disease -Blood cultures NGTD -strep and legionella negative getting quickly back to baseline Pulmonary consulted: appreciate recommendations * DuoNebs QID * BiPAP QHS * Solu-Medrol 40mg BID * Bumex 1mg QD * Symbicort 2 puffs BID * Ween O2 as tolerated Imaging: * CXR 04/20: Slight cardiomegaly and prominence of the interstitial markings have not changed. Focal consolidation is not seen. No appreciable change. * CT lungs: Chronic changes involving the lungs including chronic interstitial changes and bronchiectasis. There is also an area of pleural thickening likely postinflammatory within the left hemothorax. Stable mediastinal adenopathy. Cardiomegaly. No acute infiltrate or effusion. * CXR 04/18: Diffuse increased interstitial markings likely related to edema or underlying chronic interstitial disease * CXR 04/17: Cardiomegaly. There is increased density at the lateral left mid chest mainly related to the overlying scapula. Some degree of consolidation or atelectasis cannot be excluded. Medications: * Solumedrol 40mg BID * Azithromycin (04/17-04/19) * Cefepime (04/17-04/19) * Plan to transition to levaquin 04/20- * Duoneb treatments q 6 hours scheduled. * Albuterol nebulizer q 2 hours as needed for SOB. * Symbicort Relevant History: Suspect there is an element of lupus pneumonitis as greater than 50% of lupus patients have lung disease. she has all the hallmarks with her PFTs showing restrictive disease (not obstructive). she had no lung problems requiring hospitalization until the fall of 2014 when her lupus "kicked into a higher gear ". She was on a downhill path until her lupus was adequately treated. Typically , lupus can cause an inflammatory lung disease which over time becomes permanent scarring with fibrosis. her cellcept is one of the best meds for slowing any fibrotic damage. She responded so quickly to steroids that only an inflammatory process could get better that fast (every time). COPD, pneumonia, bronchitis all normally take longer than a few hours to improve that much. Otherwise, Dr Larsen is her Bindery Machine Feeder Offbearer and has been wonderful about keeping her in good control. (2) Cough with hemoptysis ICD Codes: R04.2 - Hemoptysis Plan: History of hemoptysis with these respiratory distress episodes. Hemoglobin stable. Continue to monitor. -See more detailed plan above (3) Lactic acidosis ICD Codes: E87.2 - Acidosis Status: Resolved Plan: LA 4.0 on admission --> reduced to 2.0 after improvement of respiratory status. Likely 2/2 increased work of breathing (4) Essential hypertension ICD Codes: I10 - Essential (primary) hypertension Status: Chronic Plan: Continue with Losartan 25 mg daily. Monitor VS q 4 hours. Adjust antihypertensive regimen as needed. (5) DM (diabetes mellitus) ICD Codes: E11.9 - Type 2 diabetes mellitus without complications Status: Chronic Plan: On levemir 50units in AM/40units at night at home plus 35units + sliding scale at home. -Hyperglycemia worsened by steroid use. -Increased levemir to 35units BID but 7 pre-prandial +sliding scale (6) CKD (chronic kidney disease) stage 3, GFR 30-59 ml/min ICD Codes: N18.3 - Chronic kidney disease, stage 3 (moderate) Status: Acute Plan: At baseline. Continue to monitor Avoid nephrotoxic medications. Strict I&Os. Avoid contrast dye. (7) Anemia ICD Codes: D64.9 - Anemia, unspecified Status: Chronic Plan: Hold iron therapy given epigastric pain and possible gastritis. -H&H stable but we'll continue to hold iron supplementation (8) FEN/PPX Status: Acute Plan: Fluids: none Electrolytes: monitor and replace as needed GI ppx: Pantoprazole 40 mg PO DVT: Lovenox, closely monitor for bleed. Diet: diabetic diet Physical therapy consulted (Kayden Warren MD R2) Problem Qualifiers (1) DM (diabetes mellitus): Qualified Codes: E11.8 - Type 2 diabetes mellitus with unspecified complications; Z79.4 - assisted (current) use of insulin (2) Anemia: Qualified Codes: D64.9 - Anemia, unspecified Kayden Warren MD R2 Apr 20, 2017 08:34 Noreen Rodríguez MD Apr 22, 2017 09:33
[2017-04-20 08:38] LABS: BANDS 1 % (0-6); LYMPHOCYTES 4 % (9-44); MONOCYTES 5 % (0-8); MYELOCYTES 3 % (0-0); NEUTROPHIL # MANUAL DIFF 9.6 TH/MM3 (1.8-7.7); POLYS (SEG NEUTROPHILS) 86 % (16-70)
[2017-04-20 08:39] LABS: OVALOCYTES 1+ (NORMAL)
[2017-04-20] MEDS ORDERED: predniSONE 20 MG TAB PO SCH (09:00)
[2017-04-20] MEDS: INSULIN ASPART SUPPLEMENTAL SCALE SQ SCH ×4 (10:07→20:24)
[2017-04-20] MEDS: INSULIN ASPART 1,000 UNITS/10 ML VIAL SQ SCH ×3 (10:07→16:20)
[2017-04-20] MEDS: LACTOBACILLUS ACIDOPHILUS TAB PO SCH ×2 (10:08→20:21)
[2017-04-20] MEDS: methylPREDNISolone SOD SUCC 40 MG/1 ML VIAL IV PUSH SCH ×2 (10:08→20:22)
[2017-04-20] MEDS: LOSARTAN 25 MG TAB PO SCH (10:09)
[2017-04-20] MEDS: GABAPENTIN 400 MG CAP PO SCH ×2 (10:09→20:21)
[2017-04-20] MEDS: POTASSIUM CHLORIDE 10 MEQ CONTROLLED RELEASE TAB PO SCH (10:09)
[2017-04-20] MEDS: PANTOPRAZOLE SOD 40 MG DELAYED RELEASE TAB PO SCH (10:09)
[2017-04-20] MEDS: ASPIRIN 81 MG CHEW TAB CHEW SCH (10:10)
[2017-04-20] MEDS: LEVOFLOXACIN 750 MG TAB PO SCH (10:10)
[2017-04-20] MEDS: BENZONATATE 100 MG CAP PO PRN ×2 (10:10→20:34)
[2017-04-20] MEDS: CALCITRIOL 0.25 MCG CAP PO SCH (10:10)
[2017-04-20] MEDS: guaiFENesin E.R. 600 MG TAB PO SCH ×2 (10:11→20:21)
[2017-04-20] MEDS: INSULIN DETEMIR 100 UNITS/ML VIAL SQ SCH ×2 (10:11→20:24)
[2017-04-20] MEDS: DOCUSATE SODIUM 50 MG/SENNA 8.6 MG TAB PO SCH ×2 (10:11→20:22)
[2017-04-20] MEDS: MYCOPHENOLATE MOFETIL 500 MG TAB PO SCH ×3 (10:11→16:19)
[2017-04-20] MEDS: SODIUM CHLORIDE 0.9% FLUSH 10 ML FLUSH IV FLUSH SCH ×2 (10:12→20:22)
[2017-04-20] MEDS: BUDESONIDE-FORMOTEROL 160/4.5 MCG INHALER INH SCH ×2 (10:12→20:22)
--- NOTE | 2017-04-20 15:12 | HHI.PR ---
Subjective Remarks Feels better. On O2 3 L. Improved with IV Steroids. Objective Vital Signs Date Time Temp Pulse Resp B/P (MAP) Pulse Ox O2 Delivery O2 Flow Rate FiO2 04/20/17 12:00 96.9 82 18 145/69 (94) 99 04/20/17 10:07 Nasal Cannula 4.50 04/20/17 08:22 Nasal Cannula 4.00 04/20/17 08:00 96.2 78 19 139/65 (89) 100 04/20/17 03:43 99 40 04/20/17 00:19 97 40 04/20/17 00:00 96.8 82 16 101/66 (78) 98 04/19/17 21:23 Nasal Cannula 4.00 04/19/17 20:00 96.8 79 16 122/76 (91) 97 04/19/17 18:00 75 04/19/17 16:00 97.4 83 28 146/72 (96) 100 04/19/17 16:00 83 I/O 04/19/17 04/19/17 04/19/17 04/20/17 04/20/17 04/20/17 07:00 15:00 23:00 07:00 15:00 23:00 Intake Total 400 ml 1000 ml Output Total 975 ml 600 ml Balance 400 ml 25 ml -600 ml Intake Oral 400 ml 1000 ml Output Urine Total 975 ml 600 ml # Voids 1 3 # Bowel Movements 0 1 Result Diagram: 04/20/17 0536 04/20/17 0536 Objective Remarks GENERAL: This is an averagely built middle-aged -Polish female who is alert, pale and not dyspneic at rest. There is mild clubbing. Mild peripheral edema. HEENT: Head normocephalic. Pupils reactive and equal. Tongue is moist. Throat is clear. Nasal mucosa edematous. NECK: Supple. No bruits or thyroid enlargement or lymphadenopathy. CHEST: Distant breath sounds with fine basilar crackles, more so on the left side. Occasional wheezes anteriorly. HEART: Sounds are irregular S1, S2 with no murmur. No S3. ABDOMEN: Soft, obese without masses, no organomegaly or tenderness. Bowel sounds active. EXTREMITIES: Decreased pulses. NEUROLOGIC: Reflexes are 1+, minimal edema. Neurologically There were no focal deficits. SKIN: No lesions. Assessment and Plan Assessment and Plan IMPRESSION 1. Chronic interstitial lung disease with bronchiectasis 2. Basilar pneumonia 3. Acute hypoxic respiratory failure resolving. 4. Chronic bronchitis with COPD. 5. Congestive heart failure, resolving. 6. Diabetes mellitus 7. Hypertension. Plan : 1. Cont Solumedrol 40 mg bid and Switch to Prednisone in am 2. Wean O2 to 3.5 L 3. Nebs qid , Duoneb. 4. Continue antibiotics 5. CBC,BMP in am 6.Continue Lovenox 40 mg daily Erickson Wood MD Apr 20, 2017 15:12
[2017-04-20] MEDS: ENOXAPARIN SODIUM 40 MG/0.4 ML SYRINGE SQ SCH (16:20)
[2017-04-20] MEDS: MONTELUKAST SODIUM 10 MG TAB PO SCH (20:21)
[2017-04-21] VITALS (9 sets, daily range): BP systolic 88–156; BP diastolic 57–87; PULSE 76–105; RESP 18–24; TEMP 95.3–98.8; O2SAT 0–99
[2017-04-21] MEDS: RESP: ALBUTEROL 2.5 MG/IPRATROPIUM 0.5 MG NEB (SCH) INH ×3 (03:49→17:05)
[2017-04-21] MEDS: CHLORHEXIDINE GLUCONATE 2 % 1 PACK (2 CLOTHS) TOP SCH (03:58)
[2017-04-21 05:19] LABS: AUTOMATED NEUTROPHIL # 10.6 TH/MM3 (1.8-7.7); BASOPHIL % 0.1 % (0.0-2.0); HEMATOCRIT 25.4 % (35.0-46.0); LYMPHOCYTE # 0.8 TH/MM3 (1.0-4.8); MEAN CELL VOLUME 84.9 FL (80.0-100.0); MEAN CORPUSCULAR HEMOGLOBIN 26.9 PG (27.0-34.0); MEAN CORPUSCULAR HGB CONC 31.6 % (32.0-36.0); MONOCYTE # 0.6 TH/MM3 (0-0.9); NEUT % 87.9 % (16.0-70.0); PLATELET COUNT 332 TH/MM3 (150-450); RED CELL DISTRIBUTION WIDTH 14.9 % (11.6-17.2)
[2017-04-21 05:23] LABS: BICARBONATE 25.5 MEQ/L (21.0-32.0); CALCIUM 8.4 MG/DL (8.5-10.1); CREATININE 1.23 MG/DL (0.50-1.00)
[2017-04-21 07:24] LABS: LYMPHOCYTES 4 % (9-44); MONOCYTES 2 % (0-8); MYELOCYTES 1 % (0-0); NEUTROPHIL # MANUAL DIFF 11.3 TH/MM3 (1.8-7.7); POLYS (SEG NEUTROPHILS) 93 % (16-70)
[2017-04-21] MEDS: INSULIN DETEMIR 100 UNITS/ML VIAL SQ SCH (09:11)
[2017-04-21] MEDS: INSULIN ASPART SUPPLEMENTAL SCALE SQ SCH ×3 (09:11→16:55)
[2017-04-21] MEDS: INSULIN ASPART 1,000 UNITS/10 ML VIAL SQ SCH ×3 (09:12→16:55)
[2017-04-21] MEDS: MYCOPHENOLATE MOFETIL 500 MG TAB PO SCH ×3 (09:12→16:54)
[2017-04-21] MEDS: POTASSIUM CHLORIDE 10 MEQ CONTROLLED RELEASE TAB PO SCH (09:12)
[2017-04-21] MEDS: BENZONATATE 100 MG CAP PO PRN (09:13)
[2017-04-21] MEDS: GABAPENTIN 400 MG CAP PO SCH (09:13)
[2017-04-21] MEDS: PANTOPRAZOLE SOD 40 MG DELAYED RELEASE TAB PO SCH (09:13)
[2017-04-21] MEDS: methylPREDNISolone SOD SUCC 40 MG/1 ML VIAL IV PUSH SCH (09:13)
[2017-04-21] MEDS: CALCITRIOL 0.25 MCG CAP PO SCH (09:13)
[2017-04-21] MEDS: guaiFENesin E.R. 600 MG TAB PO SCH (09:14)
[2017-04-21] MEDS: LOSARTAN 25 MG TAB PO SCH (09:14)
[2017-04-21] MEDS: DOCUSATE SODIUM 50 MG/SENNA 8.6 MG TAB PO SCH (09:14)
[2017-04-21] MEDS: LACTOBACILLUS ACIDOPHILUS TAB PO SCH (09:14)
[2017-04-21] MEDS: MORPHINE SULFATE 2 MG/ML INJ IV PUSH PRN (09:15)
[2017-04-21] MEDS: ASPIRIN 81 MG CHEW TAB CHEW SCH (09:15)
[2017-04-21] MEDS: SODIUM CHLORIDE 0.9% FLUSH 10 ML FLUSH IV FLUSH SCH (09:15)
[2017-04-21] MEDS: LEVOFLOXACIN 750 MG TAB PO SCH (09:16)
[2017-04-21] MEDS: BUDESONIDE-FORMOTEROL 160/4.5 MCG INHALER INH SCH (09:16)
--- NOTE | 2017-04-21 09:20 | HHI.FPPN ---
Subjective Remarks Ms. See was afebrile and normotensive overnight; O2 saturation from 90-97% on 4 L O2 via NC. At time of exam, patient had O2 saturation of ~88% -93% (improvement after breathing treatment). Patient feels that her breathing has overall been improved. She reports some coughing (dry generally but occasionally productive of thick mucus). Patient also reports sore throat; she wonders if this was due to flu vaccination during hospitalization. No reported chest pain. Patient reports some decreased appetite but that it is ok. She is voiding and stooling normally. Patient thinks she is having increased lower extremity swelling and wants confirmation that she is being given diuretic. (Young Casanova MD, R3) Objective Vitals Vital Signs Date Time Temp Pulse Resp B/P (MAP) Pulse Ox O2 Delivery O2 Flow Rate FiO2 04/21/17 08:54 90 Nasal Cannula 4.00 04/21/17 04:00 97 40 04/21/17 03:52 96 Nasal Cannula 4.00 04/21/17 00:00 96.3 81 20 111/69 (83) 95 04/20/17 20:48 Nasal Cannula 4.00 04/20/17 20:40 20 04/20/17 20:25 Nasal Cannula 4.50 04/20/17 20:00 96.5 81 20 111/68 (82) 100 04/20/17 16:00 96.7 84 18 124/68 (86) 97 04/20/17 12:00 96.9 82 18 145/69 (94) 99 04/20/17 10:07 Nasal Cannula 4.50 I/O 04/20/17 04/20/17 04/20/17 04/21/17 04/21/17 04/21/17 07:00 15:00 23:00 07:00 15:00 23:00 Intake Total 1318 ml Output Total 600 ml Balance -600 ml 1318 ml Intake Oral 1318 ml Output Urine Total 600 ml # Voids 2 # Bowel Movements 1 (Young Casanova MD, R3) Result Diagram: 04/21/17 0444 04/21/17 0443 Imaging Last Impressions Chest X-Ray 04/20/17 0600 Signed Impressions: Service Date/Time: Thursday, April 20, 2017 08:09 - CONCLUSION: No appreciable change. Margot Madrigal MD Chest CT 04/18/17 0000 Signed Impressions: Service Date/Time: April 21:21 - CONCLUSION: 1. Chronic changes involving the lungs including chronic interstitial change and bronchiectasis. There is also an area of pleural thickening likely postinflammatory within the left hemithorax. 2. Stable mediastinal adenopathy. 3. Cardiomegaly. 4. No acute infiltrate or effusion. Arik Desouza Jr., MD Objective Remarks GEN: Well-developed, well-nourished patient. No acute distress. Skin: No visible lesions CV: Regular rate and rhythm without obvious murmurs. No LE edema appreciated LUNGS: On 4L O2 via NC; receiving breathing treatment at time of interview. Clear to auscultation bilaterally. No wheezing to auscultation GI: Soft, nontender, nondistended. No palpable masses. Extremities: Bilateral LE without calf pain to palpation or asymmetry. NEURO/PSYCH: Awake, alert. Appropriate insight and judgment. Normal speech (Young Casanova MD, R3) A/P Assessment and Plan Patient is a 51yo female with PMH significant for interstitial lung disease likely related to SLE and DM. Admitted for respiratory distress that initially required BiPAP Discharge Planning Pending improvement in respiratory status (Young Casanova MD, R3) Attending Attestation Patient seen and examined. Case reviewed and discussed with the resident team. Agree with plan of care as discussed with me and documented in the resident note. 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 Presented with hypoxia at 84% on 4 L of nasal cannula. Required BiPAP in the emergency room. Was able to weaned down to nasal cannula prior to moving out of the ED. Has remained on nasal cannula since. Chest x-ray significant for increased density at the lateral left mid chest. Concern for possible infectious etiology as well. -ABG on admission showed pH of 7.45, pCO2 o30, PO2 43 LOW, HCO3 21. -Echocardiogram in June 2016 showed EF 55-60%. Peak Pulmonary pressure of 70 mm Hg, suggestive of severe lung disease. -Elevated BNP likely related to pulmonary hypertension/chronic interstitial lung disease -Blood cultures NGTD -strep and legionella negative getting quickly back to baseline Pulmonary consulted: appreciate recommendations * DuoNebs QID * BiPAP QHS * Solu-Medrol 40mg BID * Will change to daily Prednisone * Bumex 1mg QD * Symbicort 2 puffs BID * Ween O2 as tolerated * Wean to 3.5L Imaging: * CXR 04/20: Slight cardiomegaly and prominence of the interstitial markings have not changed. Focal consolidation is not seen. No appreciable change. * CT lungs: Chronic changes involving the lungs including chronic interstitial changes and bronchiectasis. There is also an area of pleural thickening likely postinflammatory within the left hemothorax. Stable mediastinal adenopathy. Cardiomegaly. No acute infiltrate or effusion. * CXR 04/18: Diffuse increased interstitial markings likely related to edema or underlying chronic interstitial disease * CXR 04/17: Cardiomegaly. There is increased density at the lateral left mid chest mainly related to the overlying scapula. Some degree of consolidation or atelectasis cannot be excluded. Medications: * Solumedrol 40mg BID * Will change to Prednisone 40mg BID -Continue Levaquin (04/20-) * Duoneb treatments q 6 hours scheduled. * Albuterol nebulizer q 2 hours as needed for SOB. * Symbicort Relevant History: Suspect there is an element of lupus pneumonitis as greater than 50% of lupus patients have lung disease. she has all the hallmarks with her PFTs showing restrictive disease (not obstructive). she had no lung problems requiring hospitalization until the fall when her lupus "kicked into a higher gear ". She was on a downhill path until her lupus was adequately treated. Typically , lupus can cause an inflammatory lung disease which over time becomes permanent scarring with fibrosis. her cellcept is one of the best meds for slowing any fibrotic damage. She responded so quickly to steroids that only an inflammatory process could get better that fast (every time). COPD, pneumonia, bronchitis all normally take longer than a few hours to improve that much. Otherwise, Dr Larsen is her Filbert Grower and has been wonderful about keeping her in good control. Antibiotic History: * Azithromycin (04/17-04/19) * Cefepime (04/17-04/19) (2) Cough with hemoptysis ICD Codes: R04.2 - Hemoptysis Plan: History of hemoptysis with these respiratory distress episodes. Hemoglobin stable. Continue to monitor. -See more detailed plan above (3) Lactic acidosis ICD Codes: E87.2 - Acidosis Status: Resolved Plan: LA 4.0 on admission --> reduced to 2.0 after improvement of respiratory status. Likely 2/2 increased work of breathing (4) Essential hypertension ICD Codes: I10 - Essential (primary) hypertension Status: Chronic Plan: Continue with Losartan 25 mg daily. Monitor VS q 4 hours. Adjust antihypertensive regimen as needed. (5) DM (diabetes mellitus) ICD Codes: E11.9 - Type 2 diabetes mellitus without complications Status: Chronic Plan: Impression: On Levemir 50units in AM/40units at night at home plus 35units + sliding scale at home. Hyperglycemia worsened by steroid use. 04/21: fasting GB 333 mg/dl this morning. 24 U Novolog SS used in last 24 hrs. On Levemir 35 U BID, 7 U preprandial. -Continue Levemir 35 U BID -Will increase preprandial insulin to 9 U TID -Continue Novolog SS (6) CKD (chronic kidney disease) stage 3, GFR 30-59 ml/min ICD Codes: N18.3 - Chronic kidney disease, stage 3 (moderate) Status: Acute Plan: Impression: At baseline 04/21: Cr 1.23; unchanged Continue to monitor Avoid nephrotoxic medications. Strict I&Os. Avoid contrast dye. (7) Anemia ICD Codes: D64.9 - Anemia, unspecified Status: Chronic Plan: Hold iron therapy given epigastric pain and possible gastritis. -H&H stable but we'll continue to hold iron supplementation (8) FEN/PPX Status: Acute Plan: Fluids: none Electrolytes: monitor and replace as needed GI ppx: Pantoprazole 40 mg PO DVT: Lovenox, closely monitor for bleed. Diet: diabetic diet Physical therapy consulted (Young Casanova MD, R3) Problem Qualifiers (1) DM (diabetes mellitus): Qualified Codes: E11.8 - Type 2 diabetes mellitus with unspecified complications; Z79.4 - [facility] (current) use of insulin (2) Anemia: Qualified Codes: D64.9 - Anemia, unspecified Young Casanova MD, R3 Apr 21, 2017 09:20 Noreen Rodríguez MD Apr 22, 2017 09:36
[2017-04-21] MEDS: ACETAMINOPHEN/CODEINE 300 MG/30 MG TAB PO SCH ×2 (13:31→16:55)
[2017-04-21] MEDS: ENOXAPARIN SODIUM 40 MG/0.4 ML SYRINGE SQ SCH (13:32)
[2017-04-21] MEDS ORDERED: BENZOCAINE-MENTHOL (SUGAR FREE) 15 MG-3.6 MG LOZENGE BUCCAL PRN (14:00)
[2017-04-21] MEDS ORDERED: BUMETANIDE 1 MG TAB PO SCH (18:00)
[2017-04-21] MEDS ORDERED: predniSONE 20 MG TAB PO SCH (21:00)
[2017-04-21] MEDS ORDERED: SODIUM BICARBONATE 8.4% INJ 150 MEQ in DEXTROSE 5% IN WATE 1000ML INJ 1,000 ML IV SCH ×2 (21:30)
--- NOTE | 2017-04-21 22:49 | PD.PROCEDR ---
Procedure Note Procedure Arterial line placement A time-out was completed verifying correct patient, procedure, site, positioning , and special equipment if applicable. The patients right groin was prepped and draped in sterile fashion. 1% Lidocaine was used to anesthetize the area. A 18G Arrow arterial line was introduced into the femoral artery. The catheter was threaded over the guide wire and the needle was removed with appropriate pulsatile blood return. The catheter was then sutured in place to the skin and a sterile dressing applied. Perfusion to the extremity distal to the point of catheter insertion was checked and found to be adequate. Estimated Blood Loss: 1ml The patient tolerated the procedure well and there were no complications. Aroldo Reynolds MD Apr 21, 2017 10:49 pm
--- NOTE | 2017-04-21 22:50 | PD.PROCEDR ---
Procedure Note Procedure Centerline placement A time-out was completed verifying correct patient, procedure, site, positioning , and special equipment if applicable. The patient was placed in a dependent position appropriate for central line placement based on the vein to be cannulated. The patients right groin was prepped and draped in sterile fashion. 1% Lidocaine was used to anesthetize the surrounding skin area. A triple lumen 9-[place] catheter was introduced into the the common femoral vein using the Seldinger technique and under ultrasound guidance. The catheter was threaded smoothly over the guide wire and appropriate blood return was obtained. Each lumen of the catheter was evacuated of air and flushed with sterile saline. The catheter was then sutured in place to the skin and a sterile dressing applied. Perfusion to the extremity distal to the point of catheter insertion was checked and found to be adequate. Estimated Blood Loss: 1ml The patient tolerated the procedure well and there were no complications. Aroldo Reynolds MD Apr 21, 2017 10:50 pm
--- NOTE | 2017-04-21 23:49 | HHI.DS ---
Summary Note Date of : Apr 21, 2017 Time Of : 2134 Admission Date Apr 17, 2017 at 07:32 Admitting Diagnosis Pneumonia, pulmonary fibrosis, hypoxemia Diagnosis at Time of : CBC/BMP: 04/21/17 0444 04/21/17 0443 Significant Findings Laboratory Tests Test 04/19/17 05:55 04/20/17 05:36 04/21/17 04:43 04/21/17 04:44 Red Blood Count 3.18 MIL/MM3 (4.00-5.30) 2.97 MIL/MM3 (4.00-5.30) 3.00 MIL/MM3 (4.00-5.30) Hemoglobin 8.7 GM/DL (11.6-15.3) 8.3 GM/DL (11.6-15.3) 8.0 GM/DL (11.6-15.3) Hematocrit 27.1 % (35.0-46.0) 25.3 % (35.0-46.0) 25.4 % (35.0-46.0) Neutrophils (%) (Auto) 92.9 % (16.0-70.0) 91.2 % (16.0-70.0) 87.9 % (16.0-70.0) Lymphocytes (%) (Auto) 3.5 % (9.0-44.0) 4.9 % (9.0-44.0) 7.0 % (9.0-44.0) Neutrophils # (Auto) 9.7 TH/MM3 (1.8-7.7) 9.7 TH/MM3 (1.8-7.7) 10.6 TH/MM3 (1.8-7.7) Lymphocytes # (Auto) 0.4 TH/MM3 (1.0-4.8) 0.5 TH/MM3 (1.0-4.8) 0.8 TH/MM3 (1.0-4.8) Blood Urea Nitrogen 24 MG/DL (7-18) 25 MG/DL (7-18) 21 MG/DL (7-18) Creatinine 1.16 MG/DL (0.50-1.00) 1.23 MG/DL (0.50-1.00) 1.23 MG/DL (0.50-1.00) Random Glucose 234 MG/DL (74-106) 281 MG/DL (74-106) 333 MG/DL (74-106) Calcium Level 8.2 MG/DL (8.5-10.1) 8.4 MG/DL (8.5-10.1) 8.4 MG/DL (8.5-10.1) Carbon Dioxide Level 20.9 MEQ/L (21.0-32.0) Estimat Glomerular Filtration Rate 59 ML/MIN (>89) 55 ML/MIN (>89) 55 ML/MIN (>89) Neutrophils % (Manual) 86 % (16-70) 93 % (16-70) Lymphocytes % 4 % (9-44) 4 % (9-44) Neutrophils # (Manual) 9.6 TH/MM3 (1.8-7.7) 11.3 TH/MM3 (1.8-7.7) Myelocytes 3 % (0-0) 1 % (0-0) Basophilic Stippling MOD (NORMAL) Ovalocytes 1+ (NORMAL) White Blood Count 12.0 TH/MM3 (4.0-11.0) Mean Corpuscular Hemoglobin 26.9 PG (27.0-34.0) Mean Corpuscular Hemoglobin Concent 31.6 % (32.0-36.0) Test 04/21/17 21:11 Blood Gas Base Excess -7.7 mmol/L (-2-2) Blood Gas Oxygen Saturation 76 % (90-100) Arterial Blood pH 7.04 (7.380-7.420) Arterial Blood Partial Pressure CO2 84 mmHg (38-42) Arterial Blood Oxygen Content 8.1 Vol % (12.0-20.0) Blood Gas Hemoglobin 7.5 G/DL (12.0-16.0) Imaging Last Impressions Chest X-Ray 04/18/17 0000 Signed Impressions: Service Date/Time: April 03:03 - CONCLUSION: Diffuse increased interstitial markings likely related to edema or underlying chronic interstitial disease. Edwin Duncan MD Chest CT 04/18/17 0000 Signed Impressions: Service Date/Time: April 21:21 - CONCLUSION: 1. Chronic changes involving the lungs including chronic interstitial change and bronchiectasis. There is also an area of pleural thickening likely postinflammatory within the left hemithorax. 2. Stable mediastinal adenopathy. 3. Cardiomegaly. 4. No acute infiltrate or effusion. Arik Desouza Jr., MD Eko,Faiza Hurd MD R2 Apr 21, 2017 23:49
--- NOTE | 2017-04-22 02:03 | HHI.FPPN ---
Addendum to progress note ADDENDUM Reason for addendum: Additonal documentation Additional information Residents responded to a code blue overhead page on Ms See around 20:16 pm. Apparently, the patient fell in the bathroom and only sustained a scratch on her back. She was put in a wheelchair and returned to the room. Not too long afterwards, she complained of shortness of breath and respiratory therapy was called to the room. Shortly after, she started frothing at the mouth and her eyes rolled in the back of her head. Code blue was initiated. At the time we arrived at the bedside, she was in asystole and CPR was being performed and she had received 2 rounds of IV epi. [facility] driver arrived at the scene. ROSC was obtained and she was transferred to the [facility]. However, she coded again in the [facility], and this time, the team was unable to resuscitate her. Time of was 2134. Dr. Rodríguez was made aware of the patient's condition during the first code, ROSC, and after . Seen with Dr. Phan, PGY1 EkoFaiza MD R2 Apr 22, 2017 02:03
--- NOTE | 2017-04-22 07:14 | HHI.DS ---
Summary Note Date of : Apr 21, 2017 Time Of : 2134 Admission Date Apr 17, 2017 at 07:32 Admitting Diagnosis Pneumonia, pulmonary fibrosis, hypoxemia Diagnosis at Time of : Brief History Mrs. See is a very pleasant 51 y/o black female who has an extensive PMHx of T2DM on insulin therapy, idiopathic interstitial lung disease requiring home oxygen, COPD, hypertension, Stage 3 CKD, iron deficiency anemia, and peripheral neuropathy, presenting with increasing SOB x 4-5 days. History limited 2/2 BiPAP machine and mask covering her face. Her symptoms started one week ago with thick, green/yellow discharge from her nose. She was seen by her dowel pointer who told her to make an appointment with her founder chairman and chief creative officer. She was able to see Dr. Mcdaniel on 04/12/17, and she was prescribed an antibiotic. She does not recall the name. Due to transportation difficulties she was not able to fill this antibiotic until 04/15/2017. AT that time she developed tightness in her chest and a productive cough of yellow/ green sputum. She denies hemoptysis. Her breathing gradually became worse and last night she called 911. Her oxygen was not working per EMT. She does report subjective fevers, chills, malaise, headaches, and fatigue. She report chest tightness, but no pain currently. She also has been having some epigastric abdominal pain and she thinks "this is because I have not eaten anything." FOr her DM, she is taking Levemir 30 units BID and a sliding scale Novolog. She has not required many units of novolog over the past 1 week and reports that her BG is ranging from 100-200. ROS: Denies dysuria or urinary frequency. Denies nausea or vomiting. Denies stiff neck. Denies blurry vision. CBC/BMP: 04/21/17 0444 04/21/17 0443 Significant Findings Laboratory Tests Test 04/20/17 05:36 04/21/17 04:43 04/21/17 04:44 04/21/17 21:11 Red Blood Count 2.97 MIL/MM3 (4.00-5.30) 3.00 MIL/MM3 (4.00-5.30) Hemoglobin 8.3 GM/DL (11.6-15.3) 8.0 GM/DL (11.6-15.3) Hematocrit 25.3 % (35.0-46.0) 25.4 % (35.0-46.0) Neutrophils (%) (Auto) 91.2 % (16.0-70.0) 87.9 % (16.0-70.0) Lymphocytes (%) (Auto) 4.9 % (9.0-44.0) 7.0 % (9.0-44.0) Neutrophils # (Auto) 9.7 TH/MM3 (1.8-7.7) 10.6 TH/MM3 (1.8-7.7) Lymphocytes # (Auto) 0.5 TH/MM3 (1.0-4.8) 0.8 TH/MM3 (1.0-4.8) Neutrophils % (Manual) 86 % (16-70) 93 % (16-70) Lymphocytes % 4 % (9-44) 4 % (9-44) Neutrophils # (Manual) 9.6 TH/MM3 (1.8-7.7) 11.3 TH/MM3 (1.8-7.7) Myelocytes 3 % (0-0) 1 % (0-0) Basophilic Stippling MOD (NORMAL) Ovalocytes 1+ (NORMAL) Blood Urea Nitrogen 25 MG/DL (7-18) 21 MG/DL (7-18) Creatinine 1.23 MG/DL (0.50-1.00) 1.23 MG/DL (0.50-1.00) Random Glucose 281 MG/DL (74-106) 333 MG/DL (74-106) Calcium Level 8.4 MG/DL (8.5-10.1) 8.4 MG/DL (8.5-10.1) Estimat Glomerular Filtration Rate 55 ML/MIN (>89) 55 ML/MIN (>89) White Blood Count 12.0 TH/MM3 (4.0-11.0) Mean Corpuscular Hemoglobin 26.9 PG (27.0-34.0) Mean Corpuscular Hemoglobin Concent 31.6 % (32.0-36.0) Blood Gas Base Excess -7.7 mmol/L (-2-2) Blood Gas Oxygen Saturation 76 % (90-100) Arterial Blood pH 7.04 (7.380-7.420) Arterial Blood Partial Pressure CO2 84 mmHg (38-42) Arterial Blood Oxygen Content 8.1 Vol % (12.0-20.0) Blood Gas Hemoglobin 7.5 G/DL (12.0-16.0) Imaging Last Impressions Chest X-Ray 04/18/17 0000 Signed Impressions: Service Date/Time: April 03:03 - CONCLUSION: Diffuse increased interstitial markings likely related to edema or underlying chronic interstitial disease. Edwin Duncan MD Chest CT 04/18/17 0000 Signed Impressions: Service Date/Time: April 21:21 - CONCLUSION: 1. Chronic changes involving the lungs including chronic interstitial change and bronchiectasis. There is also an area of pleural thickening likely postinflammatory within the left hemithorax. 2. Stable mediastinal adenopathy. 3. Cardiomegaly. 4. No acute infiltrate or effusion. Arik Desouza Jr., MD Hospital Course Patient was a 51-year-old female with history significant for interstitial lung disease likely related to lupus. Also a history of diabetes. Admitted for respiratory distress that initially required BiPAP. Patient quickly was weaned down from BiPAP to nasal cannula at home rate of 2-4 L. Chest x-ray was significant for increased density at the left mid chest so antibiotics ( azithromycin and cefepime). Patient was also treated with IV steroids as she has a history of frequent admissions due to respiratory distress with quick response. Due to initial severity of symptoms, accounting practice manager was consulted and the patient did not require intubation. Patient continued to improve with IV steroids and antibiotics. Pulmonary was also consulted who recommended continued steroids and nebulizer treatments. Patient was found to have worsening renal function on admission but this improved with IV fluids. Then on 04/21/17 AILEEN DIALLO was called as patient became unconscious. Prior to acute onset, there is report that she fell in the bathroom and sustained only a scratch on her back. She then complained of shortness of breath for which respiratory therapy responded but shortly after she started foaming at the mouth and her eyes rolled back. CPR was initiated with ROSC but then another code was called and patient unfortunately at 2135. Laurie Snell MD, R3 Apr 22, 2017 07:14
== END 2017-04-22 02:02 | disposition expired | DRG 193 ==
LOC: NEPE 04:50 → NEDA 07:32 → HIME 09:15 → N07A 04-19 19:24 → N03A 04-21 20:38
PROVIDERS: ADMIT Family Medicine; ATTEND Family Medicine
PROC: 5A09457 Assistance with Respiratory Ventilation, 24-96 Consecutive Hours, Continuous Positive Airway Pressure (ICD-10-PCS; principal; 2017-04-17)
PROC: 04HY32Z Insertion of Monitoring Device into Lower Artery, Percutaneous Approach (ICD-10-PCS; 2017-04-21)
PROC: 5A12012 Performance of Cardiac Output, Single, Manual (ICD-10-PCS; 2017-04-21)
PROC: 06HY33Z Insertion of Infusion Device into Lower Vein, Percutaneous Approach (ICD-10-PCS; 2017-04-21)
DX: J18.9 Pneumonia, unspecified organism (principal); J96.01 Acute respiratory failure with hypoxia; E87.2 Acidosis; M32.13 Lung involvement in systemic lupus erythematosus; I13.0 Hypertensive heart and chronic kidney disease with heart failure and stage 1 through stage 4 chronic kidney disease, or unspecified chronic kidney disease; J44.0 Chronic obstructive pulmonary disease with (acute) lower respiratory infection; I50.9 Heart failure, unspecified; N18.3 Chronic kidney disease, stage 3 (moderate); J47.0 Bronchiectasis with acute lower respiratory infection; M32.9 Systemic lupus erythematosus, unspecified; E11.22 Type 2 diabetes mellitus with diabetic chronic kidney disease; E11.42 Type 2 diabetes mellitus with diabetic polyneuropathy; Z79.4 Long term (current) use of insulin; J84.112 Idiopathic pulmonary fibrosis; Z99.81 Dependence on supplemental oxygen; D50.9 Iron deficiency anemia, unspecified; I46.9 Cardiac arrest, cause unspecified; S20.419A Abrasion of unspecified back wall of thorax, initial encounter; W18.30XA Fall on same level, unspecified, initial encounter; Y93.9 Activity, unspecified; Y92.231 Patient bathroom in hospital as the place of occurrence of the external cause; Z23 Encounter for immunization; Z87.891 Personal history of nicotine dependence
CPT/HCPCS: 31500; 36600; 71045; 71046; 71250; 80048; 80053; 81001; 82550; 82552; 82805; 82948; 83605; 83735; 83880; 84100; 84484; 85007; 85014; 85018; 85025; 85027; 85379; 85610; 85730; 86850; 86900; 86901; 87040; 87449; 87804; 90686; 92950; 93005; 94002; 94003; 94150; 94640; 94664; 96365; 96367; 96375; J0456; J0692; J1650; J1815; J2270; J2405; J2920; J2930; J7030; J7050; J7517; J7613; Q2038